=== PATIENT | female | born 1950 | race Caucasian/White ===

== ENCOUNTER 2016-07-10 07:43 | Emergency (ER) | payer MEDICARE ==
[2016-07-10] MEDS ORDERED: MORPHINE SULFATE 4 MG/ML SYRINGE IV STA (08:00)
[2016-07-10] MEDS ORDERED: ONDANSETRON 4 MG/2 ML VIAL IVP STA (08:00)
[2016-07-10] MEDS ORDERED: SODIUM CHLORIDE 0.9% 500 ML IV STA (08:00)
[2016-07-10] MEDS ORDERED: SODIUM CHLORIDE 0.9% 1,000 ML IV STA (08:00)
[2016-07-10] MEDS ORDERED: LORazepam 2 MG/ML SYRINGE IV STA (08:11)
[2016-07-10] MEDS ORDERED: LORATADINE 10 MG TAB PO STA (08:21)
--- NOTE | 2016-07-10 08:21 | ED ---
Abdominal Pain HPI - General Chief Complaint: Abdominal Pain Stated Complaint: abd pain Time Seen by Provider: 07/10/16 07:48 Source: EMS Mode of arrival: EMS Limitations: no limitations - History of Present Illness Initial Comments: Presented with the nausea and vomiting, she threw up about a half dozen times in last 24 hours and now been dry heaving there is some abdominal discomfort and I noticed that the in the ER she had some breakers or shakes she denied any fever she blamed her for the area and denies any headaches no chest pain no shortness of breath does have abdominal pain has some mild nausea and vomiting last bowel movement was yesterday and it was normal, she was recently diagnosed with the colon cancer her gave me a radiology report from him before according to that report is his CT abdomen and pelvis with contrast the findings are compatible with a known right colon cancer there are multiple mildly enlarged lymph nodes in the right abdomen mesentery lymph nodes metastatic cyst cannot be excluded nonspecific borderline size thoracic lymph nodes which can be reassessed subsequently several lines follow-up imaging and there was a pulmonary emphysema mildly enlarged main pulmonary artery which may relate to an element of pulmonary artery hypertension. Systems are reviewed - Related Data Allergies Allergy/AdvReac Type Severity Reaction Status Date / Time Penicillins Allergy Unknown Verified 07/10/16 08:10 sertraline [From Zoloft] Allergy Unknown Verified 07/10/16 08:10 Sulfa (Sulfonamide Allergy Unknown Verified 07/10/16 08:10 Antibiotics) Review of Systems ROS Statement: Those systems with pertinent positive or pertinent negative responses have been documented in the HPI. ROS Other: All systems not noted in ROS Statement are negative. Past Medical History Past Medical History: GERD/Reflux, GI Bleed, Hypertension Additional Past Medical History / Comment(s): benign tumor of the colon, sciatica, "vision problem", cataract History of Any Multi-Drug Resistant Organisms: None Reported Past Surgical History: Cholecystectomy, Orthopedic Surgery, Tonsillectomy Additional Past Surgical History / Comment(s): right wrist surgery post fracture Past Psychological History: Anxiety Smoking Status: Current some day smoker Past Alcohol Use History: Occasional Past Drug Use History: None Reported General Exam - General Exam Comments Initial Comments: General: The patient is awake and alert, in mild distress and very anxious Skin: Skin is warm and dry noticed multiple bruising on the upper extremity Eye: Pupils are equal, round and reactive to light, extra-ocular movements are intact; there is normal conjunctiva bilaterally. Ears, nose, mouth and throat: There are moist mucous membranes and no oral lesions. Neck: The neck is supple, there is no tenderness Cardiovascular: There is a regular rate and rhythm. No murmur, rub or gallop is appreciated. Respiratory: To auscultation bilateral, no wheezing no rhonchi no distress respiratory hickey noticed Gastrointestinal: Seems distended, bowel sounds are hyperactive mildly diffusely tender Back: There is no tenderness to palpation in the midline. There is no obvious deformity. Musculoskeletal: Normal ROM, no tenderness, There is no pedal edema. There is no calf tenderness or swelling. No cords were appreciated. Neurological: CN II-XII intact, Cranial nerves III through XII are intact. There are no obvious motor or sensory deficits. Coordination appears grossly intact. Speech is normal. Psychiatric: Cooperative, appropriate mood and she is anxious. Limitations: no limitations Course Vital Signs 07/10/16 08:01 Temperature 98.2 F Pulse Rate 88 Respiratory 18 Rate Blood Pressure 111/70 O2 Sat by Pulse 96 Oximetry EKG is normal sinus rhythm ventricular rate is 84 MA interval is 120 QRS duration is 78 QT/QTC 390/460 noticed some T-wave inversion in lead 1 and S2 depression in leads 3 noticed some T-wave inversion in aVL and T-wave inversion in lead V1 and V2 V3 and ST depression in lead V4 V5 and V6, we don't have an old EKG Patient's labs and imaging studies were reviewed and discussed with the family her white count is elevated is 20.2 with a left shift creatinine is 2.0 to and KUB and a psych consistent with the bowel obstruction or ileus not able to do a CAT scan of the abdomen and considering creatinine is high, had a discussion with the family and patient her they wanted to discuss with some other family members and [facility], this is where she is scheduled for surgery on now coming Medical Decision Making - Lab Data Result diagrams: 07/10/16 08:15 07/10/16 08:15 Lab Results 07/10/16 07/10/16 07/10/16 Range/Units 08:15 08:15 08:15 WBC 20.2 H (3.8-10.6) k/uL RBC 5.38 (3.80-5.40) m/uL Hgb 11.4 (11.4-16.0) gm/dL Hct 41.0 (34.0-46.0) % MCV 76.2 L (80.0-100.0) fL MCH 21.2 L (25.0-35.0) pg MCHC 27.8 L (31.0-37.0) g/dL RDW 15.8 H (11.5-15.5) % Plt Count 649 H (150-450) k/uL Neutrophils % 90 % Lymphocytes % 5 % Monocytes % 4 % Eosinophils % 0 % Basophils % 1 % Neutrophils # 18.2 H (1.3-7.7) k/uL Lymphocytes # 0.9 L (1.0-4.8) k/uL Monocytes # 0.7 (0-1.0) k/uL Eosinophils # 0.1 (0-0.7) k/uL Basophils # 0.1 (0-0.2) k/uL Hypochromasia Marked Poikilocytosis Slight Microcytosis Slight Sodium 142 (137-145) mmol/L Potassium 4.9 (3.5-5.1) mmol/L Chloride 98 (98-107) mmol/L Carbon Dioxide 19 L (22-30) mmol/L Anion Gap 25 mmol/L BUN 26 H (7-17) mg/dL Creatinine 2.03 H (0.52-1.04) mg/dL Est GFR (MDRD) Af Amer 30 (>60 ml/min/1.73 sqM) Est GFR (MDRD) Non-Af 24 (>60 ml/min/1.73 sqM) Glucose 208 H (74-99) mg/dL Calcium 10.5 H (8.4-10.2) mg/dL Total Bilirubin 0.8 (0.2-1.3) mg/dL AST 26 (14-36) U/L ALT 23 (9-52) U/L Alkaline Phosphatase 169 H (38-126) U/L Troponin I 0.023 (0.000-0.034) ng/mL Total Protein 8.5 H (6.3-8.2) g/dL Albumin 5.2 H (3.5-5.0) g/dL Amylase 108 (30-110) U/L Lipase 163 (23-300) U/L Critical Care Time Total Critical Care Time: 35 Critical Care Time: He does have a history of colon cancer and that she is scheduled to have surgery by [facility] in [place], and today R investigations included CBC, comprehensive metabolic panel and I had a plan to do the CT of abdomen which unfortunately couldn't proceed with considering her creatinine is greater than 2 today and she had a family meeting after family meeting she requested to be transfer to the [facility] alcohol in the [place] spoke with the coordination nurse and then Dr. Serena UMANZOR she is a trauma surgeon at [address] [place] [address] she accepted her care and according to her wishes she be transferred by ambulance to [facility] in [place], she had the pain management T8 she had a fluid resuscitation as well as some antibiotics considering white count was elevated she cut her Rocephin 2 g IV along with the Flagyl at this point she does not need any nasogastric tube because she has not been vomiting since he got and at this point she is stable enough to to go Disposition Clinical Impression: Bowel obstruction, History of colon cancer, Renal failure Disposition: OTHER INSTITUTION NOT DEFINED Condition: Fair Referrals: None,Stated [Primary Care Provider] - 1-2 days - Out of Hospital Transfer - Req. Specs Out of Hospital Transfer - Requested Specifics: Other Emergency Center ( Transferred to to [facility])
[2016-07-10] MEDS ORDERED: LORATADINE-PSEUDOEPH 5-120 MG 1 EACH TAB.ER.12H PO PRN (08:26)
[2016-07-10 08:40] LABS: Basophils # (A) 0.1 k/uL (0-0.2); Basophils % (A) 1 %; CH 21.9; CHCM 28.9; Eosinophils # (A) 0.1 k/uL (0-0.7); Eosinophils % (A) 0 %; HDW 3.44; HGB 11.4 gm/dL (11.4-16.0); Hypochromasia Marked; Luc # (Auto) 0.22; Luc % (Auto) 1; Lymphocytes # (A) 0.9 k/uL (1.0-4.8); Lymphocytes % (A) 5 %; MCH 21.2 pg (25.0-35.0); MCV 76.2 fL (80.0-100.0); Mean Platelet Volume 6.9; Microcytosis Slight; Monocytes # (A) 0.7 k/uL (0-1.0); Monocytes % (A) 4 %; Neutrophils # (A) 18.2 k/uL (1.3-7.7); Neutrophils % (A) 90 %; Poikilocytosis Slight; RBC 5.38 m/uL (3.80-5.40); RDW 15.8 % (11.5-15.5); WBC 20.2 k/uL (3.8-10.6); WBC (Perox) 20.84
[2016-07-10 08:44] LABS: MCHC 27.8 g/dL (31.0-37.0)
[2016-07-10] MEDS ORDERED: cefTRIAXone 2,000 MG in SODIUM CHLORIDE 0.9% 100 ML IVPB STA (08:47)
[2016-07-10] MEDS ORDERED: metroNIDAZOLE-NS PMX 500 MG in SALINE 1 100ML.BAG IVPB STA (08:48)
[2016-07-10 08:59] VITALS: RESP 18
--- NOTE | 2016-07-10 09:00 | XR ---
EXAMINATION TYPE: XR chest 1V DATE OF EXAM: 07/10/2016 8:46 AM COMPARISON: NONE HISTORY: 66-year-old female with pain and cold symptoms TECHNIQUE: Single frontal view of the chest is obtained. FINDINGS: Heart is upper limits of normal in size. Mild interstitial prominence has a chronic appearance. Some strandy atelectasis is noted in the lower lungs. No consolidation or pleural effusion. IMPRESSION: Some chronic appearing changes without acute cardiopulmonary process.
--- NOTE | 2016-07-10 09:04 | XR ---
EXAMINATION TYPE: XR KUB DATE OF EXAM: 07/10/2016 8:45 AM COMPARISON: NONE HISTORY: 66 year-old female with abdominal pain and nausea FINDINGS: Supine imaging limited for assessment of free air. Dilated small bowel loops are noted measuring up t o 3.7 cm. Minimal scattered colonic gas is present. Some nonspecific calcific densities left mid abdomen could be vascular. Cholecystectomy clips are pre sent. Vascular calcifications in the pelvis. IMPRESSION: Dilated small bowel loops measuring up to 3.7 cm. Differential considerations include generalized ile us or small bowel obstruction.
[2016-07-10 09:06] LABS: Calcium 10.5 mg/dL (8.4-10.2); Potassium 4.9 mmol/L (3.5-5.1); Total Bilirubin 0.8 mg/dL (0.2-1.3); Total Protein 8.5 g/dL (6.3-8.2)
[2016-07-10 10:31] LABS: Appearance,Urine Cloudy (Clear); Bacteria,Urine Rare /hpf; Bilirubin,Urine 1+ (Negative); Glucose,Urine (UA) Negative (Negative); Ketones,Urine Negative (Negative); Leukocyte Esterase,Urine Trace (Negative); Mucus,Urine Occasional /hpf; Nitrite,Urine Negative (Negative); Particle Count 25986; Protein,Urine 2+ (Negative); RBC,Urine 8 /hpf (0-5); Specific Gravity,Urine 1.024 (1.001-1.035); Squamous Epithelial Cell,Urine 6 /hpf (0-4); UA Billing (MACRO vs. MICRO) MICRO; WBC,Urine 10 /hpf (0-5)
[2016-07-10 11:07] VITALS: BP 112/59; PULSE 89; TEMP 98
== END 2016-07-10 11:13 | disposition short-term general hospital (02) ==
LOC: EC 07:43
DX: K56.60 Unspecified intestinal obstruction (principal); N19 Unspecified kidney failure; R94.31 Abnormal electrocardiogram [ECG] [EKG]; K21.9 Gastro-esophageal reflux disease without esophagitis; I10 Essential (primary) hypertension; F41.9 Anxiety disorder, unspecified; D12.6 Benign neoplasm of colon, unspecified; F17.200 Nicotine dependence, unspecified, uncomplicated; Z88.0 Allergy status to penicillin; Z88.8 Allergy status to other drugs, medicaments and biological substances; Z88.2 Allergy status to sulfonamides
CPT/HCPCS: 96365 ×2; 96375 ×5; 96361 ×3; 99291 ×2; 99285; 36415; 80053; 82150; 83690; 84484; 85025; 81001; 87040; 71010; 74000; J2060; J2270; J2405; J0696; 93005

== ENCOUNTER → 2016-09-11 | Outpatient (CLI) | payer MEDICARE ==
[2016-09-11 09:30] LABS: Anisocytosis Marked; Aty Lym Flag Slight; CH 24.4; CHCM 28.6; HCT 40.5 % (34.0-46.0); Hypochromasia Marked; MCH 25.1 pg (25.0-35.0); MCHC 29.7 g/dL (31.0-37.0); Macrocytosis Slight; Mean Platelet Volume 6.9; Microcytosis Moderate; RBC 4.78 m/uL (3.80-5.40); WBC 4.6 k/uL (3.8-10.6)
[2016-09-11 09:31] LABS: MCV 84.8 fL (80.0-100.0); RDW 26.8 % (11.5-15.5)
[2016-09-11 09:47] LABS: Add Differential Manual Differential
[2016-09-11 09:48] LABS: Nucleated Red Blood Cells 0 /100 WBC (0-0); Total Cells Counted 100
[2016-09-11 09:49] LABS: Polychromasia Present
== END | disposition home or self-care (01) ==
LOC: LABWHC1 08:38 → EDSTATUS 08:52
PROVIDERS: ATTEND Internal Medicine
DX: C18.9 Malignant neoplasm of colon, unspecified (principal)
CPT/HCPCS: 36415; 85025

== ENCOUNTER 2016-10-11 16:11 | Emergency (ER) | payer MEDICARE ==
[2016-10-11] MEDS ORDERED: SODIUM CHLORIDE 0.9% 1,000 ML IV ONE (16:55)
[2016-10-11] MEDS ORDERED: ONDANSETRON 4 MG/2 ML VIAL IVP STA (16:55)
[2016-10-11 17:23] LABS: Anisocytosis Marked; Basophils % (A) 1 %; CH 28.5; Eosinophils % (A) 1 %; HCT 41.9 % (34.0-46.0); HDW 3.38; HGB 13.5 gm/dL (11.4-16.0); Hypochromasia Slight; Luc % (Auto) 4; Lymphocytes % (A) 21 %; MCH 28.5 pg (25.0-35.0); MCHC 32.3 g/dL (31.0-37.0); MCV 88.3 fL (80.0-100.0); Macrocytosis Slight; Mean Platelet Volume 7.9; Microcytosis Moderate; Monocytes # (A) 0.2 k/uL (0-1.0); Monocytes % (A) 5 %; Neutrophils # (A) 3.2 k/uL (1.3-7.7); Neutrophils % (A) 68 %; RBC 4.75 m/uL (3.80-5.40); WBC 4.6 k/uL (3.8-10.6); WBC (Perox) 4.62
[2016-10-11 17:32] LABS: RDW 27.5 % (11.5-15.5)
[2016-10-11 17:35] LABS: Anion Gap 14 mmol/L; Blood Urea Nitrogen 24 mg/dL (7-17); Calcium 10.9 mg/dL (8.4-10.2); Carbon Dioxide 30 mmol/L (22-30); Chloride 94 mmol/L (98-107); Glucose 163 mg/dL (74-99); Non-African American GFR(MDRD) 53 (>60 ml/min/1.73 sqM); Potassium 3.7 mmol/L (3.5-5.1); Sodium 138 mmol/L (137-145)
[2016-10-11 17:43] LABS: Manual Review Performed
--- NOTE | 2016-10-11 19:10 | ED ---
General Adult HPI - General Chief complaint: Nausea/Vomiting/Diarrhea Stated complaint: Dehydration Time Seen by Provider: 10/11/16 16:43 Source: patient, family, RN notes reviewed, old records reviewed Mode of arrival: ambulatory Limitations: no limitations - History of Present Illness Initial comments: 66-year-old female with history of colon cancer presenting for diarrhea. Patient states that she had partial colectomy at [facility] done in June. She states she was told she was cured of her cancer after that, however she is doing neoadjuvant chemotherapy as well. She's had 4 treatments so far in a six- month treatment regimen. She is doing this through the [facility]. She states that she began developing diarrhea about 5 days ago. Has been persistent since then. She is having 4-8 watery diarrhea episodes per day. She is concerned she could be dehydrated. She did call her nursing home manager through the cancer [facility] who recommended she come to the ER for evaluation. She denies any nausea or vomiting associated. She denies any abdominal pain associated. She does have an antidiarrheal medication but was uncertain if she could take this medication. She has not tried any other medications at this point. - Related Data Home Medications Medication Instructions Recorded Confirmed ALPRAZolam [Xanax] 0.5 mg PO DAILY PRN 10/11/16 10/11/16 Acetaminophen [Tylenol] 500 mg PO Q6H PRN 10/11/16 10/11/16 Felodipine [Felodipine ER] 10 mg PO DAILY 10/11/16 10/11/16 Hydrochlorothiazide [Hydrodiuril] 25 mg PO DAILY 10/11/16 10/11/16 Ondansetron [Zofran ODT] 8 mg PO Q8HR PRN 10/11/16 10/11/16 PARoxetine HCL [Paxil] 40 mg PO DAILY 10/11/16 10/11/16 Prochlorperazine [Compazine] 10 mg PO Q6H PRN 10/11/16 10/11/16 Pyridoxine [Vitamin B-6] 200 mg PO Q48H 10/11/16 10/11/16 Pyridoxine [Vitamin B-6] 300 mg PO Q48H 10/11/16 10/11/16 Varenicline [Chantix] 0.5 mg PO BID 10/11/16 10/11/16 diphenhydrAMINE HCL [Benadryl] 25 mg PO HS PRN 10/11/16 10/11/16 Allergies Allergy/AdvReac Type Severity Reaction Status Date / Time benazepril Allergy Swelling Verified 10/11/16 17:31 Penicillins Allergy Swelling Verified 10/11/16 17:31 sertraline [From Zoloft] Allergy Swelling Verified 10/11/16 17:31 Sulfa (Sulfonamide Allergy Swelling Verified 10/11/16 17:31 Antibiotics) Review of Systems ROS Statement: Those systems with pertinent positive or pertinent negative responses have been documented in the HPI. ROS Other: All systems not noted in ROS Statement are negative. Past Medical History Past Medical History: GERD/Reflux, GI Bleed, Hypertension Additional Past Medical History / Comment(s): colon cancer. sciatica, "vision problem", cataract History of Any Multi-Drug Resistant Organisms: None Reported Past Surgical History: Cholecystectomy, Orthopedic Surgery, Tonsillectomy Additional Past Surgical History / Comment(s): right wrist surgery post fracture Past Psychological History: Anxiety Smoking Status: Current some day smoker Past Alcohol Use History: Occasional Past Drug Use History: None Reported General Exam - General Exam Comments Initial Comments: General: Awake and Alert. No acute distress. Does not appear acutely ill. Eyes: RAJ, EOM intact. No nystagmus. No scleral icterus. HENT: Atraumatic, normocephalic. Mucous membranes moist. Trachea midline. Neck: The neck is supple, there is no tenderness or JVD. Cardiovascular: Regular rate and rhythm. No murmur, rub, or gallop is appreciated. Distal pulses intact. Respiratory: Lungs are clear to auscultation bilaterally. No wheezes, rales, rhonchi. No respiratory distress. Gastrointestinal: Soft, Nontender. No rebound or guarding. Non-distended. No masses or organomegaly noted. No CVA tenderness. Musculoskeletal: No tenderness. Normal ROM. No gross deformity. No strength deficits. Neurological: A&Ox3. CN II-XII grossly intact, There are no obvious motor or sensory deficits. Coordination appears grossly intact. Speech is normal. Skin: Skin is warm and dry and no rashes or lesions are noted. Psychiatric: Cooperative, appropriate mood & affect, normal judgment. Limitations: no limitations Course Vital Signs 10/11/16 10/11/16 16:34 19:19 Temperature 99.1 F 98.8 F Pulse Rate 81 77 Respiratory 18 16 Rate Blood Pressure 101/58 98/64 O2 Sat by Pulse 97 98 Oximetry Medical Decision Making - Medical Decision Making 66-year-old female with history of colon cancer presenting for diarrhea. Abdomen is soft and nontender on examination, no evidence of acute peritonitis. Lab work was performed which is grossly stable. She does not appear significantly hypovolemic on exam. She was given IV fluids during course in ED. Discussed use of her antidiarrheal agent as well as Zofran for symptomatic management. Discussed she is safe to use these medications as there is low suspicion for bowel obstruction or infectious etiology of her diarrhea at this time. This is likely secondary to her chemotherapy, last treatment which was about 2 weeks ago. Patient states she plans to call her nursing home manager for further discussion and management tomorrow. Discussed concerning signs symptoms for immediate return to the ED. Discussed close follow-up with PCP and cancer Center. Patient and are agreeable with plan and discharge home. - Lab Data Result diagrams: 10/11/16 16:02 10/11/16 16:02 Lab Results 10/11/16 10/11/16 Range/Units 16:02 16:02 WBC 4.6 (3.8-10.6) k/uL RBC 4.75 (3.80-5.40) m/uL Hgb 13.5 (11.4-16.0) gm/dL Hct 41.9 (34.0-46.0) % MCV 88.3 (80.0-100.0) fL MCH 28.5 (25.0-35.0) pg MCHC 32.3 (31.0-37.0) g/dL RDW 27.5 H (11.5-15.5) % Plt Count 91 L (150-450) k/uL Neutrophils % 68 % Lymphocytes % 21 % Monocytes % 5 % Eosinophils % 1 % Basophils % 1 % Neutrophils # 3.2 (1.3-7.7) k/uL Lymphocytes # 1.0 (1.0-4.8) k/uL Monocytes # 0.2 (0-1.0) k/uL Eosinophils # 0.0 (0-0.7) k/uL Basophils # 0.0 (0-0.2) k/uL Manual Slide Review Performed Hypochromasia Slight Anisocytosis Marked Microcytosis Moderate Macrocytosis Slight Sodium 138 (137-145) mmol/L Potassium 3.7 (3.5-5.1) mmol/L Chloride 94 L (98-107) mmol/L Carbon Dioxide 30 (22-30) mmol/L Anion Gap 14 mmol/L BUN 24 H (7-17) mg/dL Creatinine 1.03 (0.52-1.04) mg/dL Est GFR (MDRD) Af Amer >60 (>60 ml/min/1.73 sqM) Est GFR (MDRD) Non-Af 53 (>60 ml/min/1.73 sqM) Glucose 163 H (74-99) mg/dL Calcium 10.9 H (8.4-10.2) mg/dL Disposition Clinical Impression: S/P chemotherapy, time since less than 4 weeks, Diarrhea Disposition: HOME SELF-CARE Condition: Stable Instructions: Acute Diarrhea (ED) Additional Instructions: Please take your anti-diarrheal medication and Zofran as discussed. Please call your nursing home manager tomorrow for further discussion on symptomatic management. Referrals: None,Stated [Primary Care Provider] - 1-2 days Time of Disposition: 19:10
[2016-10-11 19:22] VITALS: BP 98/64; PULSE 77; RESP 16; TEMP 98.8
== END 2016-10-11 19:37 | disposition home or self-care (01) ==
LOC: EC 16:11
DX: R19.7 Diarrhea, unspecified (principal); I10 Essential (primary) hypertension; F17.200 Nicotine dependence, unspecified, uncomplicated; Z85.038 Personal history of other malignant neoplasm of large intestine; Z92.21 Personal history of antineoplastic chemotherapy; Z88.0 Allergy status to penicillin; Z88.2 Allergy status to sulfonamides; Z88.8 Allergy status to other drugs, medicaments and biological substances; Z79.899 Other long term (current) drug therapy
CPT/HCPCS: 99284 ×2; 96374 ×2; 96361 ×2; 36415; 80048; 85025; J2405

== ENCOUNTER → 2016-12-10 | Outpatient (CLI) | payer MEDICARE ==
[2016-12-10 13:22] LABS: Anisocytosis Slight; Aty Lym Flag Slight; Basophils % (A) 1 %; CH 33.1; CHCM 31.3; Eosinophils # (A) 0.1 k/uL (0-0.7); Eosinophils % (A) 2 %; HCT 36.9 % (34.0-46.0); HDW 2.73; HGB 11.6 gm/dL (11.4-16.0); Hypochromasia Slight; Luc % (Auto) 6; Lymphocytes # (A) 1.4 k/uL (1.0-4.8); Lymphocytes % (A) 43 %; MCH 33.5 pg (25.0-35.0); MCHC 31.5 g/dL (31.0-37.0); Macrocytosis Marked; Monocytes # (A) 0.3 k/uL (0-1.0); Monocytes % (A) 9 %; Neutrophils # (A) 1.2 k/uL (1.3-7.7); Neutrophils % (A) 39 %; RBC 3.47 m/uL (3.80-5.40); WBC 3.2 k/uL (3.8-10.6); WBC (Perox) 3.31
[2016-12-10 13:28] LABS: MCV 106.2 fL (80.0-100.0)
[2016-12-10 13:42] LABS: ALT 37 U/L (9-52); AST 49 U/L (14-36); Alkaline Phosphatase 128 U/L (38-126); Anion Gap 12 mmol/L; Blood Urea Nitrogen 11 mg/dL (7-17); Calcium 9.6 mg/dL (8.4-10.2); Carbon Dioxide 22 mmol/L (22-30); Chloride 109 mmol/L (98-107); Glucose 98 mg/dL (74-99); Non-African American GFR(MDRD) >60 (>60 ml/min/1.73 sqM); Potassium 4.3 mmol/L (3.5-5.1); Sodium 143 mmol/L (137-145); Total Bilirubin 0.7 mg/dL (0.2-1.3); Total Protein 7.2 g/dL (6.3-8.2)
[2016-12-10 13:55] LABS: Manual Review Performed
== END | disposition home or self-care (01) ==
LOC: LABWHC1 13:07
PROVIDERS: ATTEND Internal Medicine
DX: C18.9 Malignant neoplasm of colon, unspecified (principal)
CPT/HCPCS: 36415; 80053; 85025

== ENCOUNTER → 2017-02-04 | Outpatient (CLI) | payer MEDICARE ==
[2017-02-04 14:24] LABS: ALT 42 U/L (9-52); AST 64 U/L (14-36); Alkaline Phosphatase 204 U/L (38-126); Anion Gap 11 mmol/L; Blood Urea Nitrogen 10 mg/dL (7-17); Calcium 9.4 mg/dL (8.4-10.2); Carbon Dioxide 24 mmol/L (22-30); Chloride 107 mmol/L (98-107); Glucose 91 mg/dL (74-99); Non-African American GFR(MDRD) >60 (>60 ml/min/1.73 sqM); Sodium 142 mmol/L (137-145); Total Bilirubin 0.6 mg/dL (0.2-1.3)
[2017-02-04 14:27] LABS: Anisocytosis Slight; Aty Lym Flag Marked; CH 32.9; CHCM 31.6; HCT 33.4 % (34.0-46.0); HDW 2.75; HGB 10.9 gm/dL (11.4-16.0); Hypochromasia Slight; Large Platelets Flag Moderate; MCH 34.1 pg (25.0-35.0); MCHC 32.6 g/dL (31.0-37.0); MCV 104.6 fL (80.0-100.0); Macrocytosis Moderate; RBC 3.19 m/uL (3.80-5.40); RDW 18.8 % (11.5-15.5); WBC 4.4 k/uL (3.8-10.6); WBC (Perox) 4.52
[2017-02-04 14:37] LABS: Add Differential Manual Differential
[2017-02-04 14:40] LABS: Manual Review Performed; Nucleated Red Blood Cells 0 /100 WBC (0-0); Polychromasia Present; Total Cells Counted 100
[2017-02-04 14:41] LABS: Large Platelets Present
== END | disposition home or self-care (01) ==
LOC: LABWHC1 13:55
PROVIDERS: ATTEND Internal Medicine
DX: C18.9 Malignant neoplasm of colon, unspecified (principal)
CPT/HCPCS: 36415; 80053; 85025

== ENCOUNTER → 2017-02-07 | Outpatient (CLI) | payer MEDICARE ==
--- NOTE | 2017-02-08 08:58 | CT ---
EXAMINATION TYPE: CT wrist RT wo con DATE OF EXAM: 02/07/2017 COMPARISON: Outside radiographs 01/31/2017 HISTORY: 66-year-old female other extra articular fracture of wrist TECHNIQUE: Contiguous axial scanning of the right wrist without IV contrast. Coronal and sagittal rec onstructions performed. 3-D reconstructions generated on a dedicated independent workstation. CT DLP: 104.2 mGycm Automated exposure control for dose reduction was used. FINDINGS: There is comminuted fracture of the distal radial metaphysis and epiphysis with dorsal angulation and impaction. Fracture is intra-articular into the radiocarpal joint and there is disruption of the art icular surface running from the radial volar aspect to the ulnar dorsal aspect with a bony gap of 4 m m that runs this width and metaphyseal bone protruding slightly into the joint space, refer to porteritt al image 16. Comminuted fracture fragments involve the radial styloid process which measures 1.8 cm, the ulnar vol ar aspect of the distal radial epiphysis which measures 2.0 cm wide by 1.5 cm AP and encompasses most of the radiolunate articular surface, a 1.0 cm fragment along the dorsal ulnar aspect of the distal radial that has intra-articular extension into the distal radioulnar joint, and smaller fragments in the region of Quoc tubercle. There is a nondisplaced fracture through the base of the ulnar styloid process. Osteoarthritic changes at the base of the thumb. Some associated soft tissue swelling. IMPRESSION: 1. COMMINUTED, IMPACTED, AND DORSALLY ANGULATED FRACTURE OF THE DISTAL RADIAL EPIPHYSIS AND METAPHYSI S THAT SHOWS INTRA-ARTICULAR EXTENSION INTO BOTH THE RADIOCARPAL AND DISTAL RADIOULNAR JOINTS. 2. THE IMPACTION FORCES A 4 MM GAP THAT RUNS THE WIDTH OF THE RADIAL ARTICULAR SURFACE AND ALLOWS MET APHYSEAL BONE TO PROTRUDE SLIGHTLY INTO THE JOINT SPACE. 3. NONDISPLACED FRACTURE THROUGH THE BASE OF THE ULNAR STYLOID PROCESS.
== END | disposition home or self-care (01) ==
LOC: RADCTMAIN 18:15
PROVIDERS: ATTEND Orthopaedic Surgery
DX: S52.572A Other intraarticular fracture of lower end of left radius, initial encounter for closed fracture (principal); S52.615A Nondisplaced fracture of left ulna styloid process, initial encounter for closed fracture

== ENCOUNTER → 2017-07-26 | Outpatient (CLI) | payer MEDICARE ==
[~2017-07-26] MED LIST: SODIUM CHLORIDE 0.9% 500 ML in EMPTY BAG 1 BAG IV PRN
[2017-07-26 15:03] VITALS: BP 168/70; PULSE 66; RESP 20; TEMP 97.4
== END | disposition home or self-care (01) ==
LOC: PROCWHC3 14:54
PROVIDERS: ATTEND Internal Medicine
DX: C18.9 Malignant neoplasm of colon, unspecified (principal)
CPT/HCPCS: 96523; J1642

== ENCOUNTER → 2017-09-15 | Outpatient (CLI) | payer MEDICARE ==
--- NOTE | 2017-09-23 11:39 | MM ---
Reason for exam: screening (asymptomatic). Last mammogram was performed 1 year ago. History: Patient is postmenopausal and history of other cancer. Family history of breast cancer in grandmother. Physical Findings: A clinical breast exam by your physician is recommended on an annual basis and results should be correlated with mammographic findings. MG 3D Screening Mammo W/Cad Bilateral CC and MLO view(s) were taken. Prior study comparison: September 03, 2016, mammogram, performed at [facility]. August 06, 2015, mammogram, performed at [facility]. The breast tissue is heterogeneously dense. This may lower the sensitivity of mammography. Finding: There are typically benign round calcifications in both breasts. There is a chronic nodularity in the right breast. There is no discrete abnormality. Right mediport axilla. ASSESSMENT: Benign, BI-RAD 2 RECOMMENDATION: Routine screening mammogram of both breasts in 1 year.
== END | disposition home or self-care (01) ==
LOC: RADMAMWWP 13:16
PROVIDERS: ATTEND Family Medicine
DX: Z12.31 Encounter for screening mammogram for malignant neoplasm of breast (principal)
CPT/HCPCS: 77063; 77067

== ENCOUNTER 2017-11-16 17:19 | Emergency (ER) | payer MEDICARE ==
[2017-11-16] MEDS ORDERED: SODIUM CHLORIDE 0.9% 1,000 ML IV ONE (17:52)
[2017-11-16] MEDS ORDERED: DIPH,PERTUS(ACELL)TETVAC-LF 0.5 ML VIAL IM ONE (17:54)
[2017-11-16 18:23] LABS: Prothrombin Time 10.2 sec (9.0-12.0)
[2017-11-16 18:25] LABS: Albumin 4.8 g/dL (3.5-5.0); Calcium 9.6 mg/dL (8.4-10.2); Potassium 4.2 mmol/L (3.5-5.1); Total Bilirubin 0.5 mg/dL (0.2-1.3); Total Protein 7.6 g/dL (6.3-8.2)
--- NOTE | 2017-11-16 18:44 | CT ---
EXAMINATION TYPE: CT brain daxa eblla DATE OF EXAM: 11/16/2017 COMPARISON: NONE HISTORY: Laceration to posterior head after fall injury CT DLP: 1771 mGycm Automated exposure control for dose reduction was used. TECHNIQUE: CT scan of the head and cervical spine are performed without contrast. FINDINGS: There is mild cerebral cortical atrophy. There is no mass effect nor midline shift. There is no sign of intracranial hemorrhage. The calvarium is intact. The cervical vertebra have normal alignment. There is narrowing of the disc spaces at C5-6 C6-7. Face t joints are intact. There is spurring of the endplates. Skull base appears intact. IMPRESSION: Mild atrophy. No acute intracranial abnormality. Spondylotic changes in the cervical spine. No fracture seen.
[2017-11-16 19:48] VITALS: TEMP 98
--- NOTE | 2017-11-16 20:08 | XR ---
EXAMINATION TYPE: XR chest 2V DATE OF EXAM: 11/16/2017 COMPARISON: 07/10/2016 HISTORY: Syncope TECHNIQUE: Frontal and lateral views of the chest are obtained. FINDINGS: There is no heart failure nor confluent pneumonic infiltrate. Costophrenic angles are cira r. There is some linear density at the right lung base. There is right central venous catheter with t ip in the superior vena cava. There are chest leads. Bony thorax is intact. IMPRESSION: Scarring or subsegmental atelectasis at the right lung base. No significant change sarah red to old exam. No heart failure.
--- NOTE | 2017-11-16 21:07 | ED ---
Fall HPI - General Chief Complaint: Fall Stated Complaint: Fall/ Syncope Time Seen by Provider: 11/16/17 17:25 Source: patient Mode of arrival: EMS - History of Present Illness Initial Comments: 67 years old female had a couple glasses of wine today she fell down she hit her head against a hard surface embolus was called in her family wanted her to be evaluated at the ER, she didn't want come to the ER. Denies any headache no neck stiffness or neck pain, no chest pain or shortness of breath she is complaining about some swelling over the bridge of the nose no other complaints - Related Data Home Medications Medication Instructions Recorded Confirmed Felodipine [Felodipine ER] 5 mg PO DAILY 10/11/16 11/16/17 PARoxetine HCL [Paxil] 40 mg PO DAILY 10/11/16 11/16/17 Allergies Allergy/AdvReac Type Severity Reaction Status Date / Time benazepril Allergy Swelling Verified 11/16/17 17:48 Penicillins Allergy Swelling Verified 11/16/17 17:48 sertraline [From Zoloft] Allergy Swelling Verified 11/16/17 17:48 Sulfa (Sulfonamide Allergy Swelling Verified 11/16/17 17:48 Antibiotics) Review of Systems ROS Statement: Those systems with pertinent positive or pertinent negative responses have been documented in the HPI. ROS Other: All systems not noted in ROS Statement are negative. Past Medical History Past Medical History: Cancer, GERD/Reflux, GI Bleed, Hypertension Additional Past Medical History / Comment(s): colon cancer. sciatica, "vision problem", cataract History of Any Multi-Drug Resistant Organisms: None Reported Past Surgical History: Cholecystectomy, Orthopedic Surgery, Tonsillectomy Additional Past Surgical History / Comment(s): right wrist surgery post fracture Past Psychological History: Anxiety, Depression Smoking Status: Former smoker Past Alcohol Use History: Rare Past Drug Use History: None Reported General Exam - General Exam Comments Initial Comments: General: The patient is awake and alert, in no distress, and does not appear acutely ill. Skin: Skin is warm and dry and no rashes or lesions are noted. Eye: Pupils are equal, round and reactive to light, extra-ocular movements are intact; there is normal conjunctiva bilaterally. Ears, nose, mouth and throat: No septal hematoma noticed noticed some swelling generalized swelling of the nasal bridge. Neck: The neck is supple, there is no tenderness or JVD. Cardiovascular: There is a regular rate and rhythm. No murmur, rub or gallop is appreciated. Respiratory: To auscultation bilateral, no wheezing no rhonchi no distress respiratory hickey noticed Gastrointestinal: Soft, non-distended, non-tender abdomen without masses or organomegaly noted. There is no rebound or guarding present. Bowel sounds are unremarkable. Back: There is no tenderness to palpation in the midline. There is no obvious deformity. Musculoskeletal: Normal ROM, no tenderness, There is no pedal edema. There is no calf tenderness or swelling. No cords were appreciated. Neurological: CN II-XII intact, Cranial nerves III through XII are intact. There are no obvious motor or sensory deficits. Coordination appears grossly intact. Speech is normal. Psychiatric: Cooperative, appropriate mood & affect, normal judgment. Limitations: no limitations Course Vital Signs 11/16/17 11/16/17 11/16/17 17:32 19:47 21:10 Temperature 97.8 F 98.0 F Pulse Rate 98 66 67 Respiratory 18 18 16 Rate Blood Pressure 142/76 123/59 115/70 O2 Sat by Pulse 99 95 96 Oximetry EKG is normal sinus rhythm ventricular rate is 70 SC interval is 122 QRS duration is 90 QT/QTc is 462/498 and some artifacts there also noticed some T- wave inversion in lead V4 V5 and V6 head CT, negative, Nasal X-ray are negative, cervical spine CT are unremarkable Medical Decision Making - Lab Data Result diagrams: 11/16/17 18:05 Lab Results 11/16/17 11/16/17 Range/Units 18:05 18:05 PT 10.2 (9.0-12.0) sec INR 1.0 (<1.2) Sodium 143 (137-145) mmol/L Potassium 4.2 (3.5-5.1) mmol/L Chloride 106 (98-107) mmol/L Carbon Dioxide 21 L (22-30) mmol/L Anion Gap 16 mmol/L BUN 15 (7-17) mg/dL Creatinine 0.99 (0.52-1.04) mg/dL Est GFR (CKD-EPI)AfAm 67 (>60 ml/min/1.73 sqM) Est GFR (CKD-EPI)NonAf 59 (>60 ml/min/1.73 sqM) Glucose 89 (74-99) mg/dL Calcium 9.6 (8.4-10.2) mg/dL Total Bilirubin 0.5 (0.2-1.3) mg/dL AST 37 H (14-36) U/L ALT 33 (9-52) U/L Alkaline Phosphatase 137 H (38-126) U/L Total Protein 7.6 (6.3-8.2) g/dL Albumin 4.8 (3.5-5.0) g/dL Serum Alcohol 116 mg/dL Disposition Clinical Impression: Acute alcohol intoxication, Fall, Head injury Disposition: HOME SELF-CARE Condition: Good Instructions: Fall Prevention for Older Adults (ED) Is patient prescribed a controlled substance at d/c from ED?: No When asked, does pt state using other controlled substances?: No If prescribed controlled substance>3 days was MAPS reviewed?: No If opioid is for acute pain is fill amount 7 days or less?: No If Rx opioid, was Start Talking consent form obtained?: No Referrals: Davis Ty DO [Primary Care Provider] - 1-2 days
[2017-11-16 21:10] VITALS: PULSE 67
--- NOTE | 2017-11-16 21:43 | XR ---
History fall. Comparison none. Technique 3 views of the nasal bones. FINDINGS: I see no fracture nor dislocation. Maxillary spine is intact. There is normal aeration of the visuali zed paranasal sinuses. IMPRESSION: Negative nasal bone exam.
[2017-11-16 21:57] VITALS: BP 127/68; RESP 18
== END 2017-11-16 21:57 | disposition home or self-care (01) ==
LOC: EC 17:19
DX: S09.90XA Unspecified injury of head, initial encounter (principal); F10.129 Alcohol abuse with intoxication, unspecified; J34.89 Other specified disorders of nose and nasal sinuses; I10 Essential (primary) hypertension; F32.9 Major depressive disorder, single episode, unspecified; F41.9 Anxiety disorder, unspecified; Z87.891 Personal history of nicotine dependence; Z79.899 Other long term (current) drug therapy; Z88.0 Allergy status to penicillin; Z88.2 Allergy status to sulfonamides; Z88.8 Allergy status to other drugs, medicaments and biological substances; Z23 Encounter for immunization; W19.XXXA Unspecified fall, initial encounter; Y92.009 Unspecified place in unspecified non-institutional (private) residence as the place of occurrence of the external cause
CPT/HCPCS: 36415; 70160; 70450; 71046; 72125; 80053; 80320; 85610; 90471; 90715; 93005; 96360; 96361; 99285

== ENCOUNTER → 2018-02-02 | Outpatient (CLI) | payer MEDICARE ==
--- NOTE | 2018-02-03 10:26 | ECHOF ---
Referral Reason:Heart Murmur R01.1 MEASUREMENTS -------- HEIGHT: 162.6 cm WEIGHT: 74.8 kg BP: IVSd: 1.7 cm (0.6 - 1.1) LVIDd: 3.3 cm (3.9 - 5.3) LVPWd: 1.6 cm (0.6 - 1.1) IVSs: 1.7 cm LVIDs: 2.8 cm LVPWs: 1.6 cm LA Diam: 4.1 cm (2.7 - 3.8) LAESV Index (A-L): 27.07 ml/m Ao Diam: 2.9 cm (2.0 - 3.7) AV Cusp: 1.8 cm (1.5 - 2.6) LA Diam: 3.3 cm (2.7 - 3.8) MV EXCURSION: 22.907 mm (> 18.000) MV EF SLOPE: 88 mm/s (70 - 150) EPSS: 0.3 cm MV E Abhay: 0.51 m/s MV DecT: 251 ms MV A Abhay: 0.94 m/s MV E/A Ratio: 0.54 AV maxP.61 mmHg AV meanP.63 mmHg RAP: 5.00 mmHg RVSP: 37.13 mmHg FINDINGS -------- Sinus rhythm. This was a technically good study. The left ventricular size is normal. There is severe concentric left ventricular hypertrophy. Ove rall left ventricular systolic function is normal with, an EF between 60 - 65 %. Mild Khurram with Lvot Obstruction with max gradient of 22.49mmHg and mean gradient of 11.36mmHG The right ventricle is normal in size. The left atrium is mildly dilated. Normal LA size by volume 22+/-6 ml/m2. The right atrial size is normal. There is mild aortic valve sclerosis. There is no evidence of aortic regurgitation. Peak/mean gra dient across the Aortic Valve is 19.61mmHg / 10.63mmHg. Mild mitral annular calcification present. Mild mitral regurgitation is present. Mild tricuspid regurgitation present. There is mild pulmonary hypertension. The right ventricular systolic pressure, as measured by Doppler, is 37.13mmHg. There is no pulmonic regurgitation present. The aortic root size is normal. There is no pericardial effusion. CONCLUSIONS -------- 1. The left ventricular size is normal. 2. There is severe concentric left ventricular hypertrophy. 3. Overall left ventricular systolic function is normal with, an EF between 60 - 65 %. 4. Mild Khurram with Lvot Obstruction with max gradient of 22.49mmHg and mean gradient of 11.36mmHG 5. The right ventricle is normal in size. 6. The left atrium is mildly dilated. 7. The right atrial size is normal. 8. There is mild aortic valve sclerosis. 9. Peak/mean gradient across the Aortic Valve is 19.61mmHg / 10.63mmHg. 10. Mild mitral annular calcification present. 11. Mild mitral regurgitation is present. 12. Mild tricuspid regurgitation present. 13. There is mild pulmonary hypertension. 14. The right ventricular systolic pressure, as measured by Doppler, is 37.13mmHg. 15. There is no pulmonic regurgitation present. 16. The aortic root size is normal. 17. There is no pericardial effusion. PEDIATRIC CLINICAL DIETICIAN: Jayna Villegas RDCS
== END | disposition home or self-care (01) ==
LOC: RADECHMAIN 14:56
PROVIDERS: ATTEND Family Medicine
DX: I27.20 Pulmonary hypertension, unspecified (principal); I08.3 Combined rheumatic disorders of mitral, aortic and tricuspid valves
CPT/HCPCS: 93306

== ENCOUNTER → 2018-04-20 | Outpatient (CLI) | payer MEDICARE ==
[~2018-04-20] MED LIST changes: +SODIUM CHLORIDE 0.9% 500 ML 500 ML in EMPTY BAG 1 BAG IV PRN; -SODIUM CHLORIDE 0.9% 500 ML in EMPTY BAG 1 BAG IV PRN
[2018-04-20 13:29] VITALS: BP 150/74; PULSE 85; RESP 18; TEMP 98.2
== END | disposition home or self-care (01) ==
LOC: PROCWHC3 13:22
PROVIDERS: ATTEND Internal Medicine Hematology & Oncology
DX: Z45.2 Encounter for adjustment and management of vascular access device (principal); C18.2 Malignant neoplasm of ascending colon
CPT/HCPCS: 96523; J1642

== ENCOUNTER → 2018-06-02 | Outpatient (CLI) | payer MEDICARE ==
--- NOTE | 2018-06-02 18:08 | CT ---
EXAMINATION TYPE: CT ChestAbdPelvis w con DATE OF EXAM: 06/02/2018 INDICATION: Colon cancer. COMPARISON: None CT DLP: 1651 mGycm CONTRAST: Performed with Oral Contrast and with IV Contrast, patient injected with 80ml mL of Isovue M300. IV c ontrast was approved by Dr. Waldrop. TECHNIQUE: Axial images at 5 mm thick sections. Reconstructed images in the coronal plane. Delayed images through the kidneys. FINDINGS: CT CHEST: Emphysematous changes are present. Portion of the thyroid visualized is normal. No suspicious lung nodules or focal infiltrates are present. No enlarged mediastinal or hilar adenopathy is evident. The ascending aorta diameter at the level of the main pulmonary artery is 3.5 cm. The main pulmonary artery diameter at the bifurcation is 3.[address] ABDOMEN: Liver: Normal Spleen: Normal Pancreas: Normal Adrenal glands: The adrenal glands are normal. Gallbladder: Surgically absent Kidneys: No masses are evident. No hydronephrosis is present. No cysts are present. Delayed images were obtained through the kidneys, which remain unremarkable. Aorta: Vascular calcification is within the aorta. Inferior vena cava: Normal. CT PELVIS: There is an anterior abdominal wall hernia within the upper pelvis with an opening of 5.4 cm. This contains nondilated loops of bowel containing contrast. No obstruction is evident. Loops of bowel within the abdomen and pelvis are normal. There are loops of bowel which are incom pletely distended or lack oral contrast limiting their evaluation. Multiple diverticuli are within th e sigmoid colon. No acute diverticulitis is evident. There appears be a prior right hemicolectomy. Co rrelate with the surgical history. Appendix: Not identified. Urinary bladder: Normal. Genitourinary structures: Calcifications likely within the uterus from calcified fibroids. Adnexal re gions are clear. Osseous structures: No suspicious lytic or sclerotic lesions. Degenerative disc changes and facet maryuri nges are present. IMPRESSIONS: 1. Diverticulosis without acute diverticulitis. 2. Anterior abdominal wall hernia containing none obstructed bowel loops. 3. Emphysematous changes.
== END | disposition home or self-care (01) ==
LOC: RADCTMAIN 10:23
PROVIDERS: ATTEND Internal Medicine Hematology & Oncology
DX: Z03.89 Encounter for observation for other suspected diseases and conditions ruled out (principal); K57.30 Diverticulosis of large intestine without perforation or abscess without bleeding; K43.9 Ventral hernia without obstruction or gangrene; J43.9 Emphysema, unspecified; C18.2 Malignant neoplasm of ascending colon; Z88.0 Allergy status to penicillin; Z88.2 Allergy status to sulfonamides; Z88.8 Allergy status to other drugs, medicaments and biological substances
CPT/HCPCS: 82565; 84520; 71260; 74177; 36415; Q9967

== ENCOUNTER → 2018-08-15 | Outpatient (CLI) | payer MEDICARE | END | disposition home or self-care (01) | LOC: LABPAT 12:08 | PROVIDERS: ATTEND Surgery | DX: Z01.812 Encounter for preprocedural laboratory examination (principal); K43.2 Incisional hernia without obstruction or gangrene; K43.9 Ventral hernia without obstruction or gangrene | CPT/HCPCS: 36415; 86850; 86900; 86901 ==

== ENCOUNTER → 2018-08-19 | Outpatient (CLI) | payer MEDICARE ==
[2018-08-19 10:14] LABS: HCT 42.9 % (34.0-46.0); HGB 13.5 gm/dL (11.4-16.0); MCH 30.2 pg (25.0-35.0); MCHC 31.5 g/dL (31.0-37.0); MCV 95.8 fL (80.0-100.0); Mean Platelet Volume 6.6; Platelet Count 237 k/uL (150-450); RBC 4.48 m/uL (3.80-5.40); RDW 14.3 % (11.5-15.5)
== END | disposition home or self-care (01) ==
LOC: LABPAT 09:40
PROVIDERS: ATTEND Anesthesiology
DX: Z01.812 Encounter for preprocedural laboratory examination (principal)
CPT/HCPCS: 85027

== ENCOUNTER 2018-08-23 05:47 | Inpatient (IN) | payer MEDICARE ==
[~2018-08-23 05:47] MED LIST changes: +HEPARIN SODIUM,PORCINE 5,000 UNIT/ML 1 ML VIAL SQ ONE; -SODIUM CHLORIDE 0.9% 500 ML 500 ML in EMPTY BAG 1 BAG IV PRN; +ceFAZolin IN SWFI 2 GM/20 ML SYRINGE IVP ONE
[2018-08-23] MEDS ORDERED: DEXAMETHASONE SOD PHOSPHATE 10 MG/ML 1 ML VIAL IV ONE (05:55)
[2018-08-23] MEDS ORDERED: SCOPOLAMINE 1.5MG/72HR PATCH TRANSDERM ONE (05:55)
[2018-08-23] MEDS ORDERED: ONDANSETRON 4 MG/2 ML VIAL IVP ONE (05:55)
[2018-08-23] MEDS ORDERED: MIDAZOLAM (PF) 2 MG/2 ML VIAL IV PRN (05:55)
[2018-08-23] MEDS ORDERED: LIDOCAINE 1% 20 ML VIAL (10MG/ML) FOR IV START INTRADERMA PRN (05:55)
[2018-08-23] MEDS: LACTATED RINGERS 1,000 ML IV SCH ×2 (06:25→06:31)
[2018-08-23] MEDS ORDERED: ACETAMINOPHEN IV (For NPO) 1,000 MG/100 ML VIAL ONE (06:55)
[2018-08-23] MEDS ORDERED: PHENYLEPHRINE-0.9% NACL SYG 1 MG/10 ML SYRINGE ONE (06:55)
[2018-08-23] MEDS ORDERED: ROCURONIUM BROMIDE 10 MG/ML 10 ML VIAL IV ONE (06:55)
[2018-08-23] MEDS ORDERED: NEOSTIGMINE 1 MG/ML 10 ML VIAL ONE (06:55)
[2018-08-23] MEDS ORDERED: MIDAZOLAM 2 MG/2 ML VIAL ONE (06:55)
[2018-08-23] MEDS ORDERED: SUCCINYLCHOLINE CHLORIDE 100 MG/5 ML SYR IV ONE (06:55)
[2018-08-23] MEDS ORDERED: CLINDAMYCIN 150 MG/ML 4 ML VIAL ONE (06:55)
[2018-08-23] MEDS ORDERED: ATROPINE SULFATE 0.4 MG/ML 1 ML VIAL ONE (06:55)
[2018-08-23] MEDS ORDERED: PROPOFOL 10 MG/ML 20 ML VIAL IV ONE (06:55)
[2018-08-23] MEDS ORDERED: fentaNYL (PF) 50 MCG/ML 2 ML AMP ONE (06:55)
--- NOTE | 2018-08-23 06:55 | P.GSHP ---
History of Present Illness H&P Date: 08/23/18 Chief Complaint: Incisional hernia 68-year-old female presents today complaints of a incisional hernia. Hernia present after previous robotic right colectomy. Patient states she had a hernia repaired at the time of her robotic colectomy but developed postoperative swelling in the periumbilical region. CAT scan shows a 5.4 cm fascial defect. This contains loops of bowel. No obstruction seen. No change in bowel habits. Mild to moderate pain at times. Past Medical History Past Medical History: Cancer, GERD/Reflux, GI Bleed, Hypertension Additional Past Medical History / Comment(s): colon cancer. sciatica, "vision problem", cataract History of Any Multi-Drug Resistant Organisms: None Reported Past Surgical History: Cholecystectomy, Orthopedic Surgery, Tonsillectomy Additional Past Surgical History / Comment(s): right wrist surgery post fracture Past Anesthesia/Blood Transfusion Reactions: No Reported Reaction Past Psychological History: Anxiety - Past Family History Mother Family Medical History: Cancer Additional Family Medical History / Comment(s): Bladder cancer. Sister(s) Family Medical History: Cancer Additional Family Medical History / Comment(s): Colon cancer. Medications and Allergies Home Medications Medication Instructions Recorded Confirmed Type Felodipine [Felodipine ER] 5 mg PO QAM 10/11/16 08/23/18 History PARoxetine HCL [Paxil] 40 mg PO QAM 10/11/16 08/23/18 History Cholecalciferol [Vitamin D3] 2,000 unit PO DAILY 08/18/18 08/23/18 History Allergies Allergy/AdvReac Type Severity Reaction Status Date / Time benazepril Allergy Swelling Verified 08/23/18 06:14 Penicillins Allergy Swelling Verified 08/23/18 06:14 sertraline [From Zoloft] Allergy Swelling Verified 08/23/18 06:14 Sulfa (Sulfonamide Allergy Swelling Verified 08/23/18 06:14 Antibiotics) Surgical - Exam Vital Signs Temp Pulse Resp BP Pulse Ox 98.2 F 67 16 134/64 90 L 08/23/18 06:08 08/23/18 06:08 08/23/18 06:08 08/23/18 06:08 08/23/18 06:08 Physical exam: General: Well-developed, well-nourished HEENT: Normocephalic, sclerae nonicteric Abdomen: Nontender, nondistended, reducible incisional hernia Extremities: No edema Neuro: Alert and oriented Assessment and Plan (1) Incisional hernia Narrative/Plan: Options discussed with the patient. Open versus laparoscopic approach reviewed. Patient did well with her recent robotic right colectomy. Proceed with robotic/laparoscopic repair of this incisional hernia. Mesh will be utilized. Risks of bleeding, infection, recurrence, bladder and bowel injury , numbness, nerve injury, conversion to an open procedure were discussed with the patient. The patient understands and wishes to proceed. Current Visit: Yes Status: Acute Code(s): K43.2 - INCISIONAL HERNIA WITHOUT OBSTRUCTION OR GANGRENE SNOMED Code(s): 951070886
[2018-08-23] MEDS ORDERED: BUPIVACAINE (PF) 0.25% 30 ML VIAL SQ ONE ×2 (07:30)
[2018-08-23] MEDS ORDERED: LACTATED RINGERS 1,000 ML IV ONE ×3 (08:11→11:29)
[2018-08-23] MEDS ORDERED: NALOXONE 0.4 MG/ML 1 ML VIAL IV PRN ×2 (09:48→11:55)
--- NOTE | 2018-08-23 09:52 | P.OP ---
Date of Procedure: 08/23/18 Procedure(s) Performed: PREOPERATIVE DIAGNOSIS: Incisional hernia POSTOPERATIVE DIAGNOSIS: Same PROCEDURE: Laparoscopic repair incisional hernia with da Chris robotic assistance with mesh SURGEON: Claudio EBL: 5 Marisa ANESTHESIA: Gen. COMPLICATIONS: None OPERATIVE PROCEDURE: Patient was placed on the operating room table in the supine position. Patient was then placed under general anesthesia. The abdomen was prepped and draped in usual sterile fashion. A 5 mm optical trocar was used to enter the abdominal cavity in the left lateral abdomen location and laterally. Insufflation took place fully to 15 mm of mercury. At that point a 8 mm trocar was placed in the left subcostal location. An 8 mm trocar was placed in the left lower quadrant. The initial 5 was then switched to an 8 mm trocar as well. All of these were placed under direct visualization. The trochars were placed so that the neutral center of the trocar was within the abdominal wall. The xi da Chris robot was then docked after placing the patient in a slight right decubitus position. I then left the bedside and moved to the da Chris console. The patient's hernia was inspected. The hernia itself was quite large. There was omentum adherent to the hernia sac which was easily lysed using electrocautery. The hernia sac was then partially excised with the use of electrocautery. The defect in the fascia measured 8.5 cm in length vertically by 5 cm in width. Using a #1 strattafix suture the fascia was reapproximated in a running fashion. A total of 2 of the 18 and sutures were utilized. This provided nice closure of the fascia. Following that the 10 x 15 cm ventral light mesh was utilized. This was carefully sutured circumferentially using 2-0 V lock sutures. This was performed in a running fashion using 3 separate sutures. The middle portion of the mesh was also sutured to the abdominal wall. This provided excellent coverage of our fascial closure. We then switched to a traditional laparoscopic approach. The 5 needles were removed at that point. The hernia sac was also removed. The skin at all 3 sites were closed using interrupted 4-0 Monocryl sutures. Skin glue and sterile dressings were applied. DISPOSITION: Stable to recovery room
[2018-08-23] MEDS: HYDROmorphone 0.5 MG/0.5 ML SYRINGE IVP PRN ×4 (10:03→10:30)
[2018-08-23] MEDS ORDERED: KETOROLAC 30 MG/ML 1 ML VIAL IVP ONE (10:04)
[2018-08-23] MEDS ORDERED: ONDANSETRON 4 MG/2 ML VIAL IVP PRN (11:55)
[2018-08-23] MEDS ORDERED: ACETAMINOPHEN TAB 325 MG TAB PO PRN (11:55)
[2018-08-23 16:17] VITALS: BMI 30.4
[2018-08-23] MEDS: HEPARIN SODIUM,PORCINE 5,000 UNIT/ML 1 ML VIAL SQ SCH (16:59)
[2018-08-23] MEDS: FAMOTIDINE 20 MG TAB PO SCH (21:04)
[2018-08-23] MEDS: DOCUSATE 100 MG CAP PO SCH (21:04)
[2018-08-23] MEDS: D5-0.45% NACL WITH KCL 20MEQ/L 1,000 ML IV SCH (21:22)
[2018-08-23] MEDS ORDERED: ALBUTEROL NEBULIZED 2.5 MG/3 ML INHALATION PRN (21:30)
[2018-08-23] MEDS: HYDROcodone/APAP 5-325MG 1 EACH TAB PO PRN (21:37)
[2018-08-24] MEDS: HEPARIN SODIUM,PORCINE 5,000 UNIT/ML 1 ML VIAL SQ SCH ×4 (00:54→23:07)
[2018-08-24] MEDS: HYDROcodone/APAP 5-325MG 1 EACH TAB PO PRN ×4 (01:13→21:10)
[2018-08-24] MEDS: LACTATED RINGERS 1,000 ML IV SCH (03:19)
[2018-08-24] MEDS: D5-0.45% NACL WITH KCL 20MEQ/L 1,000 ML IV SCH ×2 (06:13→10:19)
[2018-08-24] MEDS: DOCUSATE 100 MG CAP PO SCH ×2 (08:02→21:10)
[2018-08-24] MEDS: FAMOTIDINE 20 MG TAB PO SCH ×2 (08:02→21:11)
--- NOTE | 2018-08-24 11:23 | P.PN ---
<Cheryl King Johnna - Last Filed: 08/24/18 11:16> Subjective Progress Note Date: 08/24/18 HISTORY OF PRESENT ILLNESS: 68-year-old female who underwent laparoscopic repair of incisional hernia. She is POD #1. Patient examined this morning at the bedside. Patient is complaining of abdominal pain. She is tolerating regular diet. Denies nausea or vomiting. She remains on 13 L high flow cannula. She denies shortness of breath or cough at rest. Physical therapy attempted to work with patient. Patient's oxygen saturations dropped to 87% sitting at the bedside. Patient states she quit smoking 2 years ago after smoking for many years. She states she has never seen a personal finance instructor before. PHYSICAL EXAM: VITAL SIGNS: Currently stable. Remains on high flow nasal cannula GENERAL: Well-developed in no acute distress. HEENT: No sclera icterus. Extraocular movements grossly intact. Moist buccal mucosa. Head is atraumatic, normocephalic. Hears conversational speech. No nasal drainage. NECK: Supple without lymphadenopathy. CHEST: Non-labored respirations and equal bilateral excursions on 13 L high flow cannula. CARDIOVASCULAR: Regular rate with regular rhythm. Palpable 2+ radial pulses. ABDOMEN: Soft. Nondistended. Abdominal binder in place. Surgical site without drainage. MUSCULOSKELETAL: No clubbing, cyanosis or edema. NEUROLOGIC: No focal or lateralizing signs. Cranial nerves II through XII grossly intact. PSYCH: Appropriate affect. Alert and oriented to person, place and time. SKIN: Well perfused. Good skin turgor. ASSESSMENT: 1. Status post repair of incisional hernia, POD #1 2. Postoperative acute hypoxic respiratory failure, requiring high flow nasal cannula PLAN: 1. Continue regular diet 2. Pain control 3. Incentive spirometry 4. Wean oxygen as tolerated 5. PT/OT 6. Consult pulmonary for evaluation Nurse practitioner note has been reviewed by physician. Signing provider agrees with the documented findings, assessment, and plan of care. Objective - Vital Signs Vital signs: Vital Signs Temp 97.8 F 08/24/18 07:00 Pulse 72 08/24/18 09:55 Resp 16 08/24/18 07:00 BP 128/76 08/24/18 07:00 Pulse Ox 92 L 08/24/18 07:00 Intake & Output 08/23/18 08/24/18 08/24/18 18:59 06:59 18:59 Intake Total 2800 480 Output Total 25 Balance 2775 480 Intake: IV 2800 Oral 480 Output: Estimated Blood Loss 25 Other: Voiding Method Toilet # Voids 1 2 <Spike Snyder - Last Filed: 08/24/18 21:56> Subjective As above. Patient still having relative hypoxia. Pulmonary consultation appreciated. Pain is improving. Tolerating diet. Home when cleared by pulmonary. Objective - Vital Signs Vital signs: Vital Signs Temp 98.2 F 08/24/18 14:27 Pulse 84 08/24/18 19:58 Resp 20 08/24/18 21:03 BP 146/76 08/24/18 14:27 Pulse Ox 89 L 08/24/18 19:58 Intake & Output 08/24/18 08/24/18 08/25/18 06:59 18:59 06:59 Intake Total 1012 Balance 1012 Intake: Oral 1012 Other: Voiding Method Toilet # Voids 2 1 1 Assessment and Plan (1) Incisional hernia Current Visit: Yes Status: Acute Code(s): K43.2 - INCISIONAL HERNIA WITHOUT OBSTRUCTION OR GANGRENE SNOMED Code(s): 105930455
[2018-08-24] MEDS: amLODIPine 5 MG TAB PO SCH (12:43)
[2018-08-24] MEDS: PARoxetine 20 MG TAB PO SCH (12:45)
[2018-08-24] MEDS: IPRATROPIUM-ALBUTEROL 3 ML NEB INHALATION SCH ×3 (15:47→19:48)
--- NOTE | 2018-08-24 17:06 | XR ---
EXAMINATION TYPE: XR chest 1V DATE OF EXAM: 08/24/2018 COMPARISON: 11/16/2017 HISTORY: Short of breath TECHNIQUE: Single frontal view of the chest is obtained. FINDINGS: There is no heart failure. There is coarsening of interstitial markings. There is blunting of costophrenic angles. There is right central venous catheter with the tip in the superior vena cav a. IMPRESSION: There is new atelectasis at the lung bases compared to last exam. No heart failure.
[2018-08-24] MEDS ORDERED: FUROSEMIDE 10 MG/ML 4 ML VIAL IV STA (18:08)
--- NOTE | 2018-08-24 18:09 | P.CNPUL ---
History of Present Illness Consult date: 08/24/18 Reason for consult: hypoxemia History of present illness: 68-year-old female patient underwent an incisional hernia repair and postop day #1 the patient becomes hypoxic and currently is up to 15 L of oxygen by nasal cannula. This procedure was done by general surgery without any complications. Incision is dry clean and intact. Mother the patient has a previous history of colon cancer. The patient undergone a previous right colectomy and subsequently she developed an incisional hernia. She has already completed chemotherapy following her colectomy. She is a chronic smoker in she quit smoking approximately 2 years ago. She has chronic exertional dyspnea. His attributed to her COPD. Occasional cough and congestion. No hemoptysis. No pleurisy. Note that prior to her surgery the patient was on room air oxygen. She is on Levaquin and utilized inhalers. She hasn't been taking any form of maintenance for now. I reviewed the previous CAT scan of the chest that was on this patient back in May 2018 and intact shown emphysematous changes bilaterally. The echo is within normal limits with an ejection fraction of 6065 %. This is based on echocardiogram from 2018 and the patient has no significant pulmonary hypertension or valvular heart disease. No previous history of DVT or pulmonary embolism. No neck swelling. She is using incentive spirometer and she is barely reaching thousand on today's evaluation. No fever. No chills. Chest x-ray showed some atelectatic changes in the lung bases and there is a mild pulmonary vascular congestion. Despite her ongoing hypoxemia, the patient is comfortable and she has no specific complaints. No tachycardia. No fever. Review of Systems Constitutional: Denies chills, Denies fever Eyes: denies as per HPI, denies blurred vision, denies bulging eye, denies decreased vision, denies diplopia, denies discharge, denies dry eye, denies irritation, denies itching, denies pain, denies photophobia, denies loss of peripheral vision, denies loss of vision, denies tunnel vision/blind spots Ears: deny: decreased hearing, ear discharge, earache, tinnitus Ears, nose, mouth and throat: Denies headache, Denies sore throat Breasts: absent: as per HPI, change in shape, gynecomastia, masses, nipple discharge, pain, skin changes, swelling Cardiovascular: Reports dyspnea on exertion Respiratory: Reports dyspnea Gastrointestinal: Reports as per HPI Genitourinary: Reports as per HPI Menstruation: Reports as per HPI Musculoskeletal: Reports as per HPI Musculoskeletal: absent: ankle pain, ankle stiffness, ankle swelling, as per HPI , elbow pain, elbow stiffness, elbow swelling, foot pain, foot stiffness, foot swelling, hand pain, hand stiffness, hand swelling, hip pain, hip stiffness, hip swelling, knee pain, knee stiffness, knee swelling, shoulder pain, shoulder stiffness, shoulder swelling, wrist pain, wrist stiffness, wrist swelling Integumentary: Reports as per HPI Neurological: Reports as per HPI Psychiatric: Reports as per HPI Endocrine: Reports as per HPI Hematologic/Lymphatic: Reports as per HPI Allergic/Immunologic: Reports as per HPI Past Medical History Past Medical History: Cancer, GERD/Reflux, GI Bleed, Hypertension Additional Past Medical History / Comment(s): colon cancer, seizure hernia, sciatica, cataracts History of Any Multi-Drug Resistant Organisms: None Reported Past Surgical History: Cholecystectomy, Orthopedic Surgery, Tonsillectomy Additional Past Surgical History / Comment(s): right wrist surgery post fracture Past Anesthesia/Blood Transfusion Reactions: No Reported Reaction Smoking Status: Former smoker - Past Family History Mother Family Medical History: Cancer Additional Family Medical History / Comment(s): Bladder cancer. Sister(s) Family Medical History: Cancer Additional Family Medical History / Comment(s): Colon cancer. Medications and Allergies Home Medications Medication Instructions Recorded Confirmed Type Felodipine [Felodipine ER] 5 mg PO QAM 10/11/16 08/23/18 History PARoxetine HCL [Paxil] 40 mg PO QAM 10/11/16 08/23/18 History Cholecalciferol [Vitamin D3] 2,000 unit PO DAILY 08/18/18 08/23/18 History ARIPiprazole [Abilify] 1 tab PO HS 08/23/18 08/23/18 History Hydrocodone/Acetaminophen [Ethel 1 tab PO Q6HR PRN 3 Days #10 tab 08/23/18 Rx 5-325] Allergies Allergy/AdvReac Type Severity Reaction Status Date / Time benazepril Allergy Swelling Verified 08/23/18 16:09 Penicillins Allergy Swelling Verified 08/23/18 16:09 sertraline [From Zoloft] Allergy Swelling Verified 08/23/18 16:09 Sulfa (Sulfonamide Allergy Swelling Verified 08/23/18 16:09 Antibiotics) Physical Exam Vitals: Vital Signs Temp Pulse Pulse Resp BP Pulse Ox 08/24/18 16:04 72 08/24/18 15:48 72 08/24/18 14:27 98.2 F 75 20 146/76 90 L 08/24/18 09:55 72 08/24/18 09:42 72 08/24/18 07:00 97.8 F 71 16 128/76 92 L 08/24/18 03:23 90 L 08/23/18 23:45 99.1 F 78 19 120/67 92 L 08/23/18 21:18 98.7 F 89 20 133/72 82 L Intake and Output 08/24/18 08/24/18 08/24/18 06:59 14:59 22:59 Intake Total 776 Balance 776 Intake: Oral 776 Other: Voiding Method Toilet # Voids 2 1 Gen. appearance, comfortable likely distress currently on 15 L of oxygen by nasal cannula Head exam was generally normal. There was no scleral icterus or corneal arcus. Mucous membranes were moist. Neck was supple and without jugular venous distension, thyromegaly, or carotid bruits. Carotids were easily palpable bilaterally. There was no adenopathy. Lungs sounds are diminished bilaterally especially lung bases. Respiratory effort several week and the patient is pulling approximately 500-750 on the incentive spirometer. Cardiac exam revealed the PMI to be normally situated and sized. The rhythm was regular and no extrasystoles were noted during several minutes of auscultation. The first and second heart sounds were normal and physiologic splitting of the second heart sound was noted. There were no murmurs, rubs, clicks, or gallops. Abdomen is soft and the bowel sounds are hypoactive and there is no direct tenderness hemoptysis or guarding. The mid abdominal incision is dry clean and intact. Examination of the extremities revealed easily palpable radial, femoral and pedal pulses. There was no cyanosis, clubbing or edema. Examination of the skin revealed no evidence of significant rashes, suspicious appearing nevi or other concerning lesions. Neurologically awake and alert and there is no focal neurological deficit. Results - Diagnostic Findings Chest x-ray: image reviewed Assessment and Plan Plan: Assessment 1 acute hypoxic respiratory failure, currently on 15 L of oxygen nasal cannula. Patient has background COPD. She has also developed some postoperative atelectatic changes in lung bases and there may be mild component of pulmonary vessel congestion on the chest x-ray findings. Pulmonary embolism is highly doubtful. She is calm and comfortable. No tachycardia. No aspiration. No signs of any pneumonia. 2 COPD 3 incisional hernia repair and the patient is postop day #1 4 history of colon cancer with a previous colectomy 5 chronic depression Plan Aggressive use of incentive spirometer. Avoid any sedative medications or painkillers such as narcotics that could potentially suppress the breathing. Wean down the FiO2 as tolerated. Ambulate this patient. Give 40 mg of IV Lasix. Give the patient 60 mg of IV Solu-Medrol for now and repeated in the morning. Initiate DuoNeb neb last 2 minutes [id number]. Repeat chest x- ray in the morning. No need for any CT imaging at this point time. I think the patient's oxidation will gradually improve over the next 24 hours. She will need outpatient follow-up regarding her COPD . We'll continue to follow.
[2018-08-24] MEDS: methylPREDNISolone SOD SUCCI 125 MG/2 ML VIAL IV SCH ×2 (18:25→23:08)
[2018-08-24] MEDS: BUDESONIDE 1 MG/2 ML NEBU INHALATION SCH (19:48)
[2018-08-24] MEDS: ARIPiprazole 5 MG TAB PO SCH (21:10)
--- NOTE | 2018-08-24 21:26 | P.ONQ ---
Anesthesiology Proc Note - PNB - Peripheral Nerve Block Performed Left Transversus Abdominis Single Time Out Performed: Yes Procedure Start Time: 10:46 Procedure Stop Time: 10:49 Indication: Acute Post-Operative Pain, Requested by physician Sedation Type: Sedate with meaningful contact maintained Preparation: Sterile Prep Position: Supine Needle Size: 50mm (2") Needle Gauge: 21 Technique: Ultrasound (ropi .5% 15cc plus xylo 2% 15cc) Injectate: 0.5% Ropivacaine (see comment for volume) Blood Aspirated: No Pain Paresthesia on Injection Noted: No Resistance on Injection: Normal Events: Uneventful and Well Tolerated
--- NOTE | 2018-08-25 00:40 | CONS ---
CONSULTATION DATE OF CONSULTATION: 08/24/2018 REASON FOR CONSULTATION: Medical management requested by Dr. Vergara. CONSULTATION: This is a pleasant 68-year-old patient of Dr. Ty who is status post incisional hernia repair with mesh placement by Dr. Snyder. Post procedure, the patient has been short of breath requiring oxygen, saturation dropping down to low 80s. The patient had been a long-standing smoker. Stopped smoking about 2 years ago. Denied any significant respiratory symptoms prior to admission. Patient had somewhat limited activity. Denies any calf pain. No fever. No chills. I started the patient earlier on DuoNeb. REVIEW OF SYSTEMS: CONSTITUTIONAL: None. HEENT none. RESPIRATORY: Some short of breath, cough and mild wheezing. CARDIOVASCULAR: None. GASTROINTESTINAL: Heartburn. GENITOURINARY: None. MUSCULOSKELETAL: Some arthritic pain in different joints. DERMATOLOGICAL, HEMATOLOGIC, LYMPHATIC: None. PSYCHIATRY: Some anxiety. NEUROLOGICAL: None. PAST MEDICAL HISTORY: GERD, hypertension, colon cancer, seizure, sciatica. PAST SURGICAL HISTORY: Cholecystectomy orthopedic surgery, tonsillectomy, right wrist surgery. PSYCH HISTORY: Anxiety. SOCIAL HISTORY: The patient smoked less than a pack a day for close to 45 years, stopped 2 years ago. Alcohol occasionally. . FAMILY HISTORY: Bladder cancer. HOME MEDICATIONS: Abilify 5 one tablet p.o. q.h.s., Paxil 40 mg a day. Felodipine 5 mg a day, vitamin D3 2000 units p.o. daily, Gamerco 5 one tablet q.6h p.r.n. ALLERGIES: BENAZEPRIL, PENICILLIN, ZOLOFT, SULFUR. PHYSICAL EXAMINATION: Temperature 98.2, pulse 95 and respiratory rate 20, blood pressure 146/76, pulse ox 98% on 3 L. GENERAL APPEARANCE: Sitting up in a chair, slightly short of breath. EYES: Pupils equal. Conjunctivae normal. HEENT: External appearance of nose and ears normal. Oral cavity normal. NEUROLOGICAL: Pupils equal. Cranial nerves grossly intact. Power and sensation grossly intact. MUSCULOSKELETAL: Evidence of osteoarthritis especially in the hands and knees. INVESTIGATIONS: Blood work from August 17, 2018 shows hemoglobin 13.5. ASSESSMENT: 1. Acute chronic obstructive pulmonary disease exacerbation in an ex-smoker. 2. Acute hypoxic respiratory failure, multifactorial, probably some diaphragm limitation from a binder in place and atelectasis. 3. Gastroesophageal reflux disease. 4. Essential hypertension. 5. Primary osteoarthritis. 6. Anxiety not otherwise specified. PLAN: Patient is started on DuoNeb, IV Solu-Medrol per Dr. Brown. We will also add inhaled steroids. We will have the patient uses inspiratory spirometry. Chest x-ray film was personally reviewed by me. This questionable venous prominence, will check a BNP. Care was discussed with the patient and . Questions were answered. Thank you Dr. Snyder. Copy to Dr. Ty. MMRASHIDL / VASILEN: [id number] /
[2018-08-25] MEDS: LACTATED RINGERS 1,000 ML IV SCH (03:23)
[2018-08-25] MEDS: D5-0.45% NACL WITH KCL 20MEQ/L 1,000 ML IV SCH ×2 (06:24→21:53)
[2018-08-25] MEDS: methylPREDNISolone SOD SUCCI 125 MG/2 ML VIAL IV SCH ×3 (07:44→23:07)
[2018-08-25] MEDS: HEPARIN SODIUM,PORCINE 5,000 UNIT/ML 1 ML VIAL SQ SCH ×3 (07:44→23:06)
[2018-08-25] MEDS: DOCUSATE 100 MG CAP PO SCH ×2 (07:45→20:22)
[2018-08-25] MEDS: FAMOTIDINE 20 MG TAB PO SCH ×2 (07:45→20:22)
[2018-08-25] MEDS: amLODIPine 5 MG TAB PO SCH (07:45)
[2018-08-25] MEDS: PARoxetine 20 MG TAB PO SCH (07:45)
[2018-08-25] MEDS: IPRATROPIUM-ALBUTEROL 3 ML NEB INHALATION SCH ×4 (08:26→21:20)
[2018-08-25] MEDS: BUDESONIDE 1 MG/2 ML NEBU INHALATION SCH ×2 (08:26→21:20)
[2018-08-25] MEDS ORDERED: RX INFO: IV CONTRAST WAS GIVEN 1 EACH MISC MISCELLANE PRN (11:42)
[2018-08-25 12:12] LABS: Calcium 9.5 mg/dL (8.4-10.2); Potassium 4.6 mmol/L (3.5-5.1)
--- NOTE | 2018-08-25 13:31 | P.PN ---
Subjective Progress Note Date: 08/25/18 Principal diagnosis: Incisional hernia repair. Post operative hypoxemia. Postoperative day #2. 68-year-old female patient underwent an incisional hernia repair and postop day #1 the patient becomes hypoxic and currently is up to 15 L of oxygen by nasal cannula. This procedure was done by general surgery without any complications. Incision is dry clean and intact. Mother the patient has a previous history of colon cancer. The patient undergone a previous right colectomy and subsequently she developed an incisional hernia. She has already completed chemotherapy following her colectomy. She is a chronic smoker in she quit smoking approximately 2 years ago. She has chronic exertional dyspnea. His attributed to her COPD. Occasional cough and congestion. No hemoptysis. No pleurisy. Note that prior to her surgery the patient was on room air oxygen. She is on Levaquin and utilized inhalers. She hasn't been taking any form of maintenance for now. I reviewed the previous CAT scan of the chest that was on this patient back in May 2018 and intact shown emphysematous changes bilaterally. The echo is within normal limits with an ejection fraction of 6065 %. This is based on echocardiogram from 2018 and the patient has no significant pulmonary hypertension or valvular heart disease. No previous history of DVT or pulmonary embolism. No neck swelling. She is using incentive spirometer and she is barely reaching thousand on today's evaluation. No fever. No chills. Chest x-ray showed some atelectatic changes in the lung bases and there is a mild pulmonary vascular congestion. Despite her ongoing hypoxemia, the patient is comfortable and she has no specific complaints. No tachycardia. No fever. The patient is seen today 08/25/2017 in follow-up on the regular medical floor. She is awake and alert in no acute distress. She is currently sitting up in a chair at the bedside. She is still on a routine liters high flow nasal cannula. She does deny any worsening shortness of breath, cough or congestion. She does have some dyspnea on exertion only. Complete rest up in the chair at the bedside. Sodium 137. Potassium 4.6. Creatinine 0.85. ProBNP 1909. He is currently on DuoNeb inhalations, Pulmicort inhalations, IV Solu-Medrol. Objective - Vital Signs Vital signs: Vital Signs Temp 98.5 F 08/25/18 07:00 Pulse 80 08/25/18 12:13 Resp 17 08/25/18 07:00 BP 146/83 08/25/18 07:00 Pulse Ox 93 L 08/25/18 12:16 Intake & Output 08/24/18 08/25/18 08/25/18 18:59 06:59 18:59 Intake Total 1012 200 Balance 1012 200 Intake: Oral 1012 200 Other: Voiding Method Toilet Toilet Toilet # Voids 1 1 1 - Exam GENERAL EXAM: Alert, active, comfortable in no apparent distress. On 13 L high flow nasal cannula. HEAD: Normocephalic. EYES: Normal reaction of pupils, equal size. NOSE: Clear with pink turbinates. THROAT: No erythema or exudates. NECK: No masses, no JVD. CHEST: No chest wall deformity. LUNGS: Equal air entry with end expiratory wheeze, diminished. CVS: S1 and S2 normal with no audible murmur, regular rhythm. ABDOMEN: Binder in place. Soft, normal bowel sounds, no guarding or rigidity. SPINE: No scoliosis or deformity SKIN: No rashes CENTRAL NERVOUS SYSTEM: No focal deficits, tone is normal in all 4 extremities. EXTREMITIES: There is no peripheral edema. No clubbing, no cyanosis. Peripheral pulses are intact. - Labs CBC & Chem 7: 08/25/18 08:43 Labs: Abnormal Lab Results - Last 24 Hours (Table) 08/25/18 Range/Units 08:43 Glucose 203 H (74-99) mg/dL Assessment and Plan Assessment: Assessment 1 acute hypoxic respiratory failure, currently on 13 L of oxygen nasal cannula. Patient has background COPD. She has also developed some postoperative atelectatic changes in lung bases and there may be mild component of pulmonary vessel congestion on the chest x-ray findings. Pulmonary embolism is highly doubtful. She is calm and comfortable. No tachycardia. No aspiration. No signs of any pneumonia. 2 COPD 3 incisional hernia repair and the patient is postop day #2 4 history of colon cancer with a previous colectomy 5 chronic depression Plan The patient was seen and evaluated by Dr. Brown. We'll continue to titrate down her FiO2 as tolerated. Currently down to 10 L and she is maintaining O2 saturations in the mid 90s. Continue to titrate as tolerated. We'll increase her activity as tolerated. Continue to work with the incentive spirometer. Continue bronchodilators and steroids. We'll continue to follow make further recommendations based on her clinical status. We'll discharge in the a.m. I, the cosigning physician, performed a history & physical examination of the patient. Lungs sounds with few scattered rhonchi, end expiratory wheeze. Maintaining good O2 saturations in the 90s on 10 L high flow nasal cannula. I discussed the assessment and plan of care with my nurse practitioner, Mayda Ramos. I attest to the above note as dictated by her.
--- NOTE | 2018-08-25 14:14 | CT ---
EXAMINATION TYPE: CT angio chest DATE OF EXAM: 08/25/2018 2:02 PM COMPARISON: 06/02/2018 HISTORY: Incisional hernia some SOB CT DLP: 328.6 mGycm Automated exposure control for dose reduction was used. CONTRAST: CTA scan of the thorax is performed with IV Contrast, patient injected with 100, wasted 16 mL of Isov ue 370, pulmonary embolism protocol. . FINDINGS: LUNGS: Biapical pleural thickening. Diffuse emphysematous changes. Bilateral lower lobe consolidation . Bilateral subpleural nodularity is nonspecific. Small right pleural effusion. No pneumothorax. MEDIASTINUM: Atherosclerotic change of the aorta. Coronary artery calcification. No evidence of aneur ysm. Mild cardiomegaly. Pulmonary arteries enhance normally. OTHER: There is soft tissue emphysema along the right upper abdomen. Extends into the right flank. H iatal hernia noted. Hypertrophic and degenerative change of the spine. Mediport catheter noted. Calci fication along the dome of the liver noted. IMPRESSION: 1. COPD with bilateral lower lobe infiltrate and small effusion correlate for pneumonia. 2. No diagnostic evidence of pulmonary embolism. 3. there is nonspecific soft tissue emphysema along the right abdomen. Correlate clinically.
[2018-08-25] MEDS: HYDROcodone/APAP 5-325MG 1 EACH TAB PO PRN (15:03)
--- NOTE | 2018-08-25 17:23 | P.PN ---
Subjective Progress Note Date: 08/25/18 Principal diagnosis: Incisional hernia Patient doing better today. Less pain today. Breathing seems improved. She is ambulating in halls. Objective - Vital Signs Vital signs: Vital Signs Temp 97.6 F 08/25/18 14:36 Pulse 84 08/25/18 16:29 Resp 18 08/25/18 14:36 BP 144/77 08/25/18 14:36 Pulse Ox 90 L 08/25/18 16:13 Intake & Output 08/24/18 08/25/18 08/25/18 18:59 06:59 18:59 Intake Total 1012 600 Balance 1012 600 Intake: Oral 1012 600 Other: Voiding Method Toilet Toilet Toilet # Voids 1 1 1 - Exam Abdomen: Soft, nondistended, mild tenderness - Labs CBC & Chem 7: 08/25/18 08:43 Labs: Abnormal Lab Results - Last 24 Hours (Table) 08/25/18 Range/Units 08:43 Glucose 203 H (74-99) mg/dL Assessment and Plan (1) Incisional hernia Narrative/Plan: May shower today. Continue pulmonary toilet. Possible discharge tomorrow if cleared by pulmonary. Current Visit: Yes Status: Acute Code(s): K43.2 - INCISIONAL HERNIA WITHOUT OBSTRUCTION OR GANGRENE SNOMED Code(s): 245690280
[2018-08-25] MEDS: ARIPiprazole 5 MG TAB PO SCH (20:22)
[2018-08-26] MEDS: LACTATED RINGERS 1,000 ML IV SCH (05:17)
[2018-08-26] MEDS: IPRATROPIUM-ALBUTEROL 3 ML NEB INHALATION SCH ×3 (07:45→15:51)
[2018-08-26] MEDS: BUDESONIDE 1 MG/2 ML NEBU INHALATION SCH (07:45)
[2018-08-26 09:04] VITALS: BP 155/74; RESP 18; TEMP 98
[2018-08-26] MEDS: FAMOTIDINE 20 MG TAB PO SCH (09:13)
[2018-08-26] MEDS: methylPREDNISolone SOD SUCCI 125 MG/2 ML VIAL IV SCH ×2 (09:13→16:36)
[2018-08-26] MEDS: PARoxetine 20 MG TAB PO SCH (09:13)
[2018-08-26] MEDS: amLODIPine 5 MG TAB PO SCH (09:13)
[2018-08-26] MEDS: HEPARIN SODIUM,PORCINE 5,000 UNIT/ML 1 ML VIAL SQ SCH ×2 (09:13→17:29)
[2018-08-26] MEDS: DOCUSATE 100 MG CAP PO SCH (09:13)
[2018-08-26] MEDS ORDERED: MAGNESIUM CITRATE 296 ML BOTTLE PO ONE (09:53)
--- NOTE | 2018-08-26 09:53 | P.PN ---
Subjective Progress Note Date: 08/26/18 Principal diagnosis: Incisional hernia Patient feels better today. Breathing seems improved. Only mild pain at this time. Objective - Vital Signs Vital signs: Vital Signs Temp 98.0 F 08/26/18 08:05 Pulse 86 08/26/18 08:05 Resp 18 08/26/18 08:05 BP 155/74 08/26/18 08:05 Pulse Ox 92 L 08/26/18 08:05 Intake & Output 08/25/18 08/26/18 08/26/18 18:59 06:59 18:59 Intake Total 1000 600 Balance 1000 600 Intake: Oral 1000 600 Other: Voiding Method Toilet Toilet Toilet # Voids 1 2 - Exam Abdomen: Soft, nondistended, incisions clean and dry - Labs CBC & Chem 7: 08/25/18 08:43 Labs: Abnormal Lab Results - Last 24 Hours (Table) 08/25/18 Range/Units 08:43 Glucose 203 H (74-99) mg/dL Assessment and Plan (1) Incisional hernia Narrative/Plan: Continue weaning oxygen. Possible discharge today if cleared by pulmonary Current Visit: Yes Status: Acute Code(s): K43.2 - INCISIONAL HERNIA WITHOUT OBSTRUCTION OR GANGRENE SNOMED Code(s): 786206811
--- NOTE | 2018-08-26 11:38 | PN ---
PROGRESS NOTE DATE OF SERVICE: 08/25/2018 PRESENTING COMPLAINT: Short of breath. INTERVAL HISTORY: This is a patient who is status post incisional hernia repair. Postoperatively she had exacerbation of COPD. Since the patient was still short of breath, I did order a CT scan of the chest to rule out pulmonary embolism. The patient's air entry is somewhat better. It is felt that the patient's hypoxia is chronic and not just being manifested here. Some component could be from the binder on the belly she received postoperatively. The patient has started to eat better. Does feel a bit better. REVIEW OF SYSTEMS: Done for constitutional, cardiovascular, GI, pulmonary; relevant findings as above. CURRENT MEDICATIONS: Reviewed. They include IV Solu-Medrol, bronchodilator. PHYSICAL EXAMINATION: Temperature 98.5, pulse 75, respiration 18, blood pressure 136/81, pulse ox 98% on 5 L. GENERAL APPEARANCE: Sitting up in a chair. Awake. EYES: Pupils equal. Conjunctivae normal. NECK: JVD not raised. Mass not palpable. RESPIRATORY: Effort normal. LUNGS: Diminished breath sounds. CARDIOVASCULAR: First and second sounds normal. No edema. ABDOMEN: Soft, non-tender. Liver and spleen not palpable. PSYCHIATRY: Alert and oriented x3. Mood and affect normal. INVESTIGATIONS: No blood work from today. ASSESSMENT: 1. Acute chronic obstructive pulmonary disease exacerbation an ex-smoker. 2. Acute hypoxic respiratory failure, multifactorial. 3. Suspect underlying chronic hypoxic respiratory failure from underlying chronic obstructive pulmonary disease. 4. Pulmonary embolism to be ruled out. Will order a CT scan of the chest with PE protocol. 5. Essential hypertension. 6. Primary osteoarthritis. 7. Anxiety not otherwise specified. PLAN: I discussed with Dr. Brown. The CT scan was done which did come back showing negative for PE. Patient will require oxygen at home and currently steroids as per Pulmonary. Patient's proBNP did come back at 1910. MMODL / IJN: [id number] /
--- NOTE | 2018-08-26 13:08 | P.PN ---
Subjective Progress Note Date: 08/26/18 Principal diagnosis: Incisional hernia repair. Post operative hypoxemia. Postoperative day #2. 68-year-old female patient underwent an incisional hernia repair and postop day #1 the patient becomes hypoxic and currently is up to 15 L of oxygen by nasal cannula. This procedure was done by general surgery without any complications. Incision is dry clean and intact. Mother the patient has a previous history of colon cancer. The patient undergone a previous right colectomy and subsequently she developed an incisional hernia. She has already completed chemotherapy following her colectomy. She is a chronic smoker in she quit smoking approximately 2 years ago. She has chronic exertional dyspnea. His attributed to her COPD. Occasional cough and congestion. No hemoptysis. No pleurisy. Note that prior to her surgery the patient was on room air oxygen. She is on Levaquin and utilized inhalers. She hasn't been taking any form of maintenance for now. I reviewed the previous CAT scan of the chest that was on this patient back in May 2018 and intact shown emphysematous changes bilaterally. The echo is within normal limits with an ejection fraction of 6065 %. This is based on echocardiogram from 2018 and the patient has no significant pulmonary hypertension or valvular heart disease. No previous history of DVT or pulmonary embolism. No neck swelling. She is using incentive spirometer and she is barely reaching thousand on today's evaluation. No fever. No chills. Chest x-ray showed some atelectatic changes in the lung bases and there is a mild pulmonary vascular congestion. Despite her ongoing hypoxemia, the patient is comfortable and she has no specific complaints. No tachycardia. No fever. The patient is seen today 08/25/2018 in follow-up on the regular medical floor. She is awake and alert in no acute distress. She is currently sitting up in a chair at the bedside. She is still on a routine liters high flow nasal cannula. She does deny any worsening shortness of breath, cough or congestion. She does have some dyspnea on exertion only. Complete rest up in the chair at the bedside. Sodium 137. Potassium 4.6. Creatinine 0.85. ProBNP 1909. He is currently on DuoNeb inhalations, Pulmicort inhalations, IV Solu-Medrol. The patient is seen today 08/26/2018 in follow-up on the regular medical floor and she is currently sitting up in chair at the bedside. She's been up ambulating in the room without significant shortness of breath. She is breathing easier today as compared to yesterday. She is down to liters per minute per nasal cannula to maintain O2 saturations in the 90s. She is 85% on room air. She's been afebrile. Continued on DuoNeb inhalations, Pulmicort and Perforomist inhalations, IV Solu-Medrol. Objective - Vital Signs Vital signs: Vital Signs Temp 98.0 F 08/26/18 08:05 Pulse 72 08/26/18 12:05 Resp 18 08/26/18 08:05 BP 155/74 08/26/18 08:05 Pulse Ox 85 L 08/26/18 10:42 Intake & Output 08/25/18 08/26/18 08/26/18 18:59 06:59 18:59 Intake Total 1000 600 Balance 1000 600 Intake: Oral 1000 600 Other: Voiding Method Toilet Toilet Toilet # Voids 1 2 - Exam GENERAL EXAM: Alert, active, comfortable in no apparent distress. On 5 L high flow nasal cannula. HEAD: Normocephalic. EYES: Normal reaction of pupils, equal size. NOSE: Clear with pink turbinates. THROAT: No erythema or exudates. NECK: No masses, no JVD. CHEST: No chest wall deformity. LUNGS: Equal air entry with end expiratory wheeze, diminished. CVS: S1 and S2 normal with no audible murmur, regular rhythm. ABDOMEN: Binder in place. Soft, normal bowel sounds, no guarding or rigidity. SPINE: No scoliosis or deformity SKIN: No rashes CENTRAL NERVOUS SYSTEM: No focal deficits, tone is normal in all 4 extremities. EXTREMITIES: There is no peripheral edema. No clubbing, no cyanosis. Peripheral pulses are intact. - Labs CBC & Chem 7: 08/25/18 08:43 Assessment and Plan Assessment: Assessment 1 acute hypoxic respiratory failure, currently on 5 L of oxygen nasal cannula. Patient has background COPD. She has also developed some postoperative atelectatic changes in lung bases and there may be mild component of pulmonary vessel congestion on the chest x-ray findings. Pulmonary embolism is highly doubtful. She is calm and comfortable. No tachycardia. No aspiration. No signs of any pneumonia. 2 COPD 3 incisional hernia repair and the patient is postop day #3 4 history of colon cancer with a previous colectomy 5 chronic depression Plan The patient was seen and evaluated by Dr. Brown. The patient is quite anxious to go home. She is willing to go home with oxygen. She is still requiring 3 L to maintain O2 saturations in the 90s. She'll go home with a nebulizer and albuterol, Symbicort, prednisone burst and taper. She should follow-up in our office in 1 week's time. She would benefit from full pulmonary function testing to evaluate the severity of her suspected COPD. I, the cosigning physician, performed a history & physical examination of the patient. Lungs sounds with few scattered rhonchi, end expiratory wheeze. Maintaining good O2 saturations in the 90s on 3 L high flow nasal cannula. I discussed the assessment and plan of care with my nurse practitioner, Mayda Ramos. I attest to the above note as dictated by her.
[2018-08-26 16:04] VITALS: PULSE 77
[2018-08-26] MEDS: D5-0.45% NACL WITH KCL 20MEQ/L 1,000 ML IV SCH (17:29)
--- NOTE | 2018-08-26 22:54 | PN ---
PROGRESS NOTE DATE OF SERVICE: August 26, 2018. PRESENTING COMPLAINT: Short of breath. INTERVAL HISTORY: The patient is doing much better today. Breathing is better. Oxygen is down to 3 L. Did tolerate her diet, up to the bathroom. Had a bowel movement. REVIEW OF SYSTEMS: Done for constitutional, cardiovascular, GI, pulmonary; relevant findings as above. CURRENT MEDICATIONS: Reviewed. PHYSICAL EXAMINATION: VITAL SIGNS: Temperature 98, pulse 86, respiratory 18, blood pressure 155/74, pulse ox 85 percent on room air. GENERAL APPEARANCE: Sitting up in a chair. Awake. EYES: Pupils are equal. Conjunctivae normal. NECK: JVD not raised. Mass not palpable. RESPIRATORY: Effort normal. LUNGS: Decreased breath sounds. CARDIOVASCULAR: 1st and 2nd sounds normal. No edema. ABDOMEN: Soft, nontender. Liver and spleen not palpable. PSYCHIATRY: Alert and oriented x3. Mood and affect normal. INVESTIGATIONS: CT scan negative for PE. ASSESSMENT: 1. Acute chronic obstructive pulmonary disease exacerbation in an ex-smoker. 2. Acute hypoxic respiratory failure from above. 3. Chronic hypoxic respiratory failure from underlying chronic obstructive pulmonary disease. 4. Pulmonary embolism ruled out. 5. Essential hypertension. 6. Primary osteoarthritis. 7. Anxiety, not otherwise specified. 8. Status post abdominal surgery for incisional hernia. PLAN: Care was discussed at length with the patient. The patient will be sent home on DuoNeb and tapering dose of steroids. The patient probably will need long-term oxygen but to be further evaluated in the office. Care also discussed with the patient's . Thank you Dr. Snyder. MMRASHIDL / VASILEN: [id number] /
--- NOTE | 2018-08-29 12:25 | CDI ---
Documentation Clarification Form Date: 08/29/2018 11:01:44 AM From: Chiquita Betancur RN, CCDS Admit Date: 08/24/2018 7:41:00 PM Patient Name: Yanni Morales Visit Number: [id number] Discharge Date: 08/26/2018 6:01:00 PM ATTENTION: The Clinical Documentation Specialists (CDI) and [facility] Coding Staff appreciate your assistance in clarifying documentation. Please respond to the clarification below the line at the bottom and electronically sign. The CDI & [facility] Coding staff will review the response and follow-up if needed. Please note: Queries are made part of the Legal Health Record. If you have any questions, please contact the author of this message via ITS. Dr. Ileana Brown Acute hypoxic respiratory failure is documented in the progress note on 08/24/18 and ongoing progress notes. Patient has background COPD. Patients Admitting Diagnosis: Incision hernia Post-Operative Diagnosis: same Procedure performed: Laparoscopic repair incisional hernia with de Chris robotic assistance with mesh History/Risk Factors: Cancer, GI Bleed, Hypertension, COPD, tobacco use Clinical Indicators: 68-year-old female postop repair of incisional hernia became hypoxic and was placed on 15 L of oxygen by nasal cannula. She is a chronic smoker who quite smoking approximately 2 years ago. She has chronic exertional dyspnea. Cat scan of chest in May 2018 shown emphysematous changes bilaterally. 08/24/18 Chest X-ray: New atelectasis at the lung bases. No heart failure. 08/25/18 CT angio chest: COPD with bilateral lower lobe infiltrate and small effusion correlate pneumonia. nonspecific soft tissue emphysema along the right abdomen. Treatment: Monitor O2 Sat's (titrate) Solu-Medrol IV (taper) Kefzol IVP Lasix IV x1 Ventolin Nebulized Pulmicort Inhalation Home O2 per orders Consults: Dr. Villegas: It is felt that the patient's hypoxia is chronic and not just being manifested here. Some component could be from the binder on the belly she received postoperatively. Acute hypoxic respiratory failure, multifactorial. Suspect underlying chronic hypoxic respiratory failure from underlying chronic obstructive pulmonary disease. In order to accurately reflect this patients severity of illness, please clarify if the post-operative diagnosis acute hypoxic respiratory failure is: An expected post-procedural or post-surgical condition (due to: specify) An unexpected post-procedural or post-surgical condition related to surgical care Other, please specify Unable to determine (Last Revision: September 2017) An expected post-procedural or post-surgical condition (due to: specify) MTDD
--- NOTE | 2018-08-29 12:59 | CDI ---
Documentation Clarification Form Date: 08/29/2018 12:26:20 PM From: Chiquita Betancur RN, CCDS Admit Date: 08/24/2018 7:41:00 PM Patient Name: Yanni Morales Visit Number: [id number] Discharge Date: 08/26/2018 6:01:00 PM ATTENTION: The Clinical Documentation Specialists (CDI) and [facility] Coding Staff appreciate your assistance in clarifying documentation. Please respond to the clarification below the line at the bottom and electronically sign. The CDI & [facility] Coding staff will review the response and follow-up if needed. Please note: Queries are made part of the Legal Health Record. If you have any questions, please contact the author of this message via ITS. Dr. Ileana Brown Postoperative atelectatic changes in lung bases are documented in your consult and ongoing progress notes. Patients Admitting Diagnosis: Incisional Hernia Post-Operative Diagnosis: Same Procedure performed: Laparoscopic repair incisional hernia with de Chris robotic assistance with mesh History/Risk Factors: Cancer, GI Bleed, Hypertension COPD, Former tobacco use Clinical Indicators: Post procedure of laparoscopic repair of incisional hernia patient was noted to have O2 saturation of 82 % on 6/L NC. She has chronic exertional dyspnea. This attributed to her COPD. Occasional cough and congestion. Lung sounds are diminished bilaterally especially lung bases. Respiratory effort is weak. 08/24/17: Chest x-ray: There is new atelectasis at the lung bases. Treatment: Incentive Spirometer Ventolin nebulized Pulmicort Inhalation Monitor O2 Sat's Solu-Medrol IV (taper) Kefzol IV X1 Consults: Dr. Villegas: It is felt that the patient's hypoxia is chronic and not just being manifested here. Some component could be from the binder on the belly she received postoperatively. In order to accurately reflect this patients severity of illness, please clarify if the post-operative atelectatic changes diagnosis is: An expected post-procedural or post-surgical condition Integral to the procedure Inherent to the procedure An unexpected post-procedural or post-surgical condition related to surgical care Other, please specify Unable to determine (Last Revision: September 2017) An expected post-procedural or post-surgical condition MTDD
== END 2018-08-26 18:01 | disposition home or self-care (01) | DRG 353 ==
LOC: OR 05:47 → 4SSUR 14:14 → OR 08-24 15:12 → 4SSUR 08-24 19:41
PROVIDERS: ADMIT Surgery; ATTEND Surgery
PROC: 0WUF4JZ Supplement Abdominal Wall with Synthetic Substitute, Percutaneous Endoscopic Approach (ICD-10-PCS; principal; 2018-08-23 07:00)
PROC: 8E0W4CZ Robotic Assisted Procedure of Trunk Region, Percutaneous Endoscopic Approach (ICD-10-PCS; principal; 2018-08-23 07:00)
PROC: 3E0M45Z Introduction of Adhesion Barrier into Peritoneal Cavity, Percutaneous Endoscopic Approach (ICD-10-PCS; principal; 2018-08-23 07:00)
DX: K43.2 Incisional hernia without obstruction or gangrene (principal); J96.21 Acute and chronic respiratory failure with hypoxia; J44.1 Chronic obstructive pulmonary disease with (acute) exacerbation; J98.11 Atelectasis; F32.9 Major depressive disorder, single episode, unspecified; F41.9 Anxiety disorder, unspecified; I10 Essential (primary) hypertension; K21.9 Gastro-esophageal reflux disease without esophagitis; M19.91 Primary osteoarthritis, unspecified site; Z80.0 Family history of malignant neoplasm of digestive organs; Z80.52 Family history of malignant neoplasm of bladder; Z85.038 Personal history of other malignant neoplasm of large intestine; Z87.891 Personal history of nicotine dependence; Z90.49 Acquired absence of other specified parts of digestive tract; Z92.21 Personal history of antineoplastic chemotherapy; Z79.899 Other long term (current) drug therapy; Z88.0 Allergy status to penicillin; Z88.2 Allergy status to sulfonamides; Z88.8 Allergy status to other drugs, medicaments and biological substances
CPT/HCPCS: 36415; 71045; 71275; 80048; 83880; 86850; 86900; 86901; 88302; 94640

== ENCOUNTER → 2018-10-11 | Outpatient (CLI) | payer MEDICARE ==
--- NOTE | 2018-10-12 12:12 | MM ---
Reason for exam: screening (asymptomatic). Last mammogram was performed 1 year and 1 month ago. History: Patient is postmenopausal and history of other cancer. Family history of breast cancer in grandmother. Physical Findings: A clinical breast exam by your physician is recommended on an annual basis and results should be correlated with mammographic findings. MG 3D Screening Mammo W/Cad Bilateral CC and MLO view(s) were taken. Prior study comparison: September 15, 2017, bilateral MG 3d screening mammo w/cad. September 03, 2016, mammogram, performed at [facility]. The breast tissue is heterogeneously dense. This may lower the sensitivity of mammography. Stable benign calcifications. There is no discrete abnormality. No significant changes when compared with prior studies. ASSESSMENT: Benign, BI-RAD 2 RECOMMENDATION: Routine screening mammogram of both breasts in 1 year.
== END ==
LOC: RADMAMWWP 14:38
PROVIDERS: ATTEND Family Medicine
DX: Z12.31 Encounter for screening mammogram for malignant neoplasm of breast (principal)
CPT/HCPCS: 77063; 77067

== ENCOUNTER → 2019-06-13 | Day surgery (SDC) | payer MEDICARE ==
[2019-06-08 16:02] VITALS: BMI 27.4
[~2019-06-13] MED LIST changes: -HEPARIN SODIUM,PORCINE 5,000 UNIT/ML 1 ML VIAL SQ ONE; +LACTATED RINGERS 1,000 ML IV SCH; +LIDOCAINE 1% INJ 10MG/ML (20 ML MDV) ONE; +PROPOFOL 10 MG/ML 20 ML VIAL IV ONE; -ceFAZolin IN SWFI 2 GM/20 ML SYRINGE IVP ONE
[2019-06-13 07:50] VITALS: RESP 16; TEMP 96.8
--- NOTE | 2019-06-13 08:01 | P.GSHP ---
History of Present Illness H&P Date: 06/13/19 Chief Complaint: colon cancer screening 69-year-old female underwent robotic right colectomy for nearly obstructing right colon cancer in May 2016. 1 out of 17 lymph nodes positive at that time. Postoperatively has done well. Last colonoscopy 2 years ago which was no rmal. Here today for routine follow-up colonoscopy. No complaints. Past Medical History Past Medical History: Cancer, GERD/Reflux, GI Bleed, Hypertension, Mus culoskeletal Disorder Additional Past Medical History / Comment(s): colon cancer 2016-had surg. & chemo, sciatica History of Any Multi-Drug Resistant Organisms: None Reported Past Surgical History: Bowel Resection, Cholecystectomy, Orthopedic Surgery, Tonsillectomy Additional Past Surgical History / Comment(s): right wrist surgery post fracture, robotic colectomy Past Anesthesia/Blood Transfusion Reactions: No Reported Reaction Smoking Status: Former smoker - Past Family History Mother Family Medical History: Cancer Additional Family Medical History / Comment(s): Bladder cancer. Sister(s) Family Medical History: Cancer Additional Family Medical History / Comment(s): Colon cancer. Medications and Allergies Home Medications Medication Instructions Recorded Confirmed Type Felodipine [Felodipine ER] 5 mg PO QAM 10/11/16 06/13/19 History Gabapentin [Neurontin] 300 mg PO TID 06/08/19 06/13/19 History Venlafaxine HCl [Effexor XR] 150 mg PO DAILY 06/08/19 06/13/19 History Allergies Allergy/AdvReac Type Severity Reaction Status Date / Time benazepril Allergy Swelling Verified 06/13/19 07:45 Penicillins Allergy Swelling Verified 06/13/19 07:45 sertraline [From Zoloft] Allergy Swelling Verified 06/13/19 07:45 Sulfa (Sulfonamide Allergy Swelling Verified 06/13/19 07:45 Antibiotics) Surgical - Exam Vital Signs Temp Pulse Resp BP Pulse Ox 96.8 F L 77 16 122/63 93 L 06/13/19 07:49 06/13/19 07:49 06/13/19 07:49 06/13/19 07:49 06/13/19 07:49 Physical exam: General: Well-developed, well-nourished HEENT: Normocephalic, sclerae nonicteric Abdomen: Nontender, nondistended Extremities: No edema Neuro: Alert and oriented Assessment and Plan (1) Colon cancer screening Narrative/Plan: Will proceed with colonoscopy Current Visit: Yes Status: Acute Code(s): Z12.11 - ENCOUNTER FOR SCREENING FOR MALIGNANT NEOPLASM OF COLON SNOMED Code(s): 454729839
--- NOTE | 2019-06-13 08:21 | P.PCN ---
Date of Procedure: 06/13/19 Procedure(s) Performed: PREOPERATIVE DIAGNOSIS: colon cancer screening, personal history POSTOPERATIVE DIAGNOSIS: diverticulosis PROCEDURE: Colonoscopy ANESTHESIA: MAC SURGEON: Spike Snyder M.D. SPECIMENS: none ENDOSCOPIC PROCEDURE: The patient was placed on the endoscopy table in the left decubitus position. The Olympus colonoscope was inserted into the anus and passed under direct visualization to the ileocolonic anastomosis in the mid transverse colon. The anastomosis was widely patent without abnormalities. From that point the scope was slowly withdrawn inspecting all surfaces carefully. There were no neoplastic inflammatory or polypoid lesions throughout the transverse, descending, sigmoid and rectum. There was moderate left-sided diverticulosis noted. Digital rectal examination was normal. The patient was taken to the recovery room in stable condition per anesthesia guidelines. RECOMMENDATIONS: increase fiber. Follow-up colonoscopy 3 years.
[2019-06-13 08:45] VITALS: PULSE 68
[2019-06-13 08:52] VITALS: BP 99/58
== END | disposition home or self-care (01) ==
LOC: ORWHC2ENDO 07:29
PROVIDERS: ATTEND Surgery
DX: Z08 Encounter for follow-up examination after completed treatment for malignant neoplasm (principal); Z85.038 Personal history of other malignant neoplasm of large intestine; I10 Essential (primary) hypertension; K21.9 Gastro-esophageal reflux disease without esophagitis; Z87.891 Personal history of nicotine dependence; Z88.0 Allergy status to penicillin; Z88.2 Allergy status to sulfonamides; Z90.49 Acquired absence of other specified parts of digestive tract
CPT/HCPCS: 45378; J2001; J2704

== ENCOUNTER → 2019-06-15 | Outpatient (CLI) | payer MEDICARE ==
--- NOTE | 2019-06-15 12:47 | CT ---
EXAMINATION TYPE: CT ChestAbdPelvis w con DATE OF EXAM: 06/15/2019 COMPARISON: August 25, 2018 and 06/02/2018 HISTORY: Follow up colon cancer. CT DLP: 713.3 mGycm CONTRAST: CT scan of the chest, abdomen and pelvis is performed with Oral Contrast and with IV Contrast, patien t injected with 100 mL of Isovue 300. CT Chest: LUNGS: The lungs are clear and free of infiltrate or atelectasis. No pulmonary nodule or mass is det ected. Mild upper lobe emphysematous changes redemonstrated. No pleural effusion or CT evidence of i nterstitial lung disease. MEDIASTINUM: Thoracic aorta is of normal caliber. The heart is not enlarged. No evidence for media stinal mass or adenopathy. HILAR STRUCTURES: No evidence for mass. No hilar adenopathy is appreciated. OTHER: No significant abnormality. CONTRAST CT ABDOMEN AND PELVIS FINDINGS: LIVER/GB: The gallbladder surgically absent. No space occupying hepatic lesion. Biliary tree is of no rmal caliber. PANCREAS: No inflammation. No distinct mass. SPLEEN: No splenic enlargement. No lesion seen. ADRENALS: No nodule. No thickening. KIDNEYS/BLADDER: No hydronephrosis. No nephrolithiasis. No distinct renal mass. BOWEL: Partial right-sided hemicolectomy noted. An anastomotic site appears patent. No evidence for r ecurrent or residual mass. No evidence of bowel obstruction or leak. No pneumoperitoneum. I do not se e evidence for inflammatory or obstructive change. Mild scattered diverticula without diverticulitis. GENITAL ORGANS: No gross abnormality. LYMPH NODES: No greater than 1cm abdominal or pelvic lymph nodes are appreciated. AORTA: No significant abnormality. OSSEOUS STRUCTURES: No significant abnormality is seen. OTHER: No significant additional abnormality is seen. IMPRESSION: 1. No evidence for recurrent disease or metastatic disease. Partial right-sided hemicolectomy as note d above.
== END | disposition home or self-care (01) ==
LOC: RADCTMAIN 10:25
PROVIDERS: ATTEND Internal Medicine Hematology & Oncology
DX: C18.2 Malignant neoplasm of ascending colon (principal); Z90.49 Acquired absence of other specified parts of digestive tract
CPT/HCPCS: 82565; 84520; 71260; 74177; 36415; Q9967

== ENCOUNTER → 2020-01-07 | Outpatient (CLI) | payer MEDICARE ==
--- NOTE | 2020-01-09 11:04 | MM ---
Reason for exam: screening (asymptomatic). Last mammogram was performed 1 year and 3 months ago. History: Patient is postmenopausal and history of other cancer. Family history of breast cancer in grandmother. Physical Findings: A clinical breast exam by your physician is recommended on an annual basis and results should be correlated with mammographic findings. MG 3D Screening Mammo W/Cad Bilateral CC and MLO view(s) were taken. Prior study comparison: October 11, 2018, bilateral MG 3d screening mammo w/cad. September 15, 2017, bilateral MG 3d screening mammo w/cad. The breast tissue is heterogeneously dense. This may lower the sensitivity of mammography. No significant changes when compared with prior studies. ASSESSMENT: Benign, BI-RAD 2 RECOMMENDATION: Routine screening mammogram of both breasts in 1 year.
== END | disposition home or self-care (01) ==
LOC: RADMAMWWP 15:01
PROVIDERS: ATTEND Family Medicine
DX: Z12.31 Encounter for screening mammogram for malignant neoplasm of breast (principal)
CPT/HCPCS: 77063; 77067

== ENCOUNTER → 2020-06-05 | Outpatient (CLI) | payer MEDICARE ==
--- NOTE | 2020-06-05 13:09 | CT ---
EXAMINATION TYPE: CT ChestAbdPelvis w con DATE OF EXAM: 06/05/2020 COMPARISON: CT June 15, 2019 and older CTs HISTORY: Colon CA, Observe for mets CT DLP: 1252.7 mGycm. Automated Exposure Control for Dose Reduction was Utilized. CONTRAST: CT scan of the thorax, abdomen and pelvis is performed with oral and with IV Contrast, patient inject ed with 80 mL of Isovue 300. FINDINGS: LUNGS: Moderate underlying emphysematous change is redemonstrated. No suspicious new nodules or cedrick s. No pleural effusion or pneumothorax is seen. Mild bibasilar linear scarring and/or atelectasis. MEDIASTINUM: Stable slightly enlarged right paratracheal 1.4 x 1.5 cm lymph node axial image 23. No n ew or enlarging thoracic lymph nodes otherwise identified. No cardiomegaly or pericardial effusion i s seen. Coronary artery calcification is redemonstrated. OTHER: Stable right internal jugular Mediport catheter. LIVER/GB: Cholecystectomy clips redemonstrated. Liver remains heterogeneously hypodense relative to s pleen without new suspicious mass. PANCREAS: No significant abnormality is seen. SPLEEN: No significant abnormality is seen. ADRENALS: No significant abnormality is seen. KIDNEYS: Symmetric cortical medullary uptake and excretion from both kidneys without concerning renal mass or hydronephrosis seen bilaterally. BOWEL: Oral contrast reaches level of rectum. Prominent diverticula throughout the colon greatest in the left and sigmoid colon. No CT evidence for acute diverticulitis. Short segment 3 to 4 cm focal ar ea of moderate concentric wall thickening distal left colon axial image 82. Favor spasm, new concentr ic neoplasm cannot be excluded. Consider colonoscopy follow-up to further evaluate if has not been pe rformed in last 3 years. Redemonstration of proximal partial colectomy and small bowel anastomosis ri ght abdomen. Few scattered nonspecific air-fluid levels throughout small bowel loops. GENITAL ORGANS: Small size anteverted uterus. LYMPH NODES: No greater than 1cm abdominal or pelvic lymph nodes are appreciated. OSSEOUS STRUCTURES: Underlying scoliosis with moderate multilevel spurring in the spine moderate narr owing of both hip joints. OTHER: Moderate calcified plaque of the aorta extends into branch vessels. IMPRESSION: 1. Short segment concerning the area of distal left colon as detailed above. Consider colonoscopy ev aluation if it has not been performed in the last 3 years. Otherwise no new suspicious mass or adenop athy to suggest neoplastic recurrence.
== END | disposition home or self-care (01) ==
LOC: RADCTMAIN 10:37
PROVIDERS: ATTEND Internal Medicine Hematology & Oncology
DX: C18.2 Malignant neoplasm of ascending colon (principal); Z88.0 Allergy status to penicillin; Z88.2 Allergy status to sulfonamides
CPT/HCPCS: 82565; 84520; 71260; 74177; 36415; Q9967 ×2

== ENCOUNTER → 2020-10-21 | Outpatient (CLI) | payer MEDICARE ==
--- NOTE | 2020-10-21 17:07 | CT ---
EXAMINATION TYPE: CT angio chest DATE OF EXAM: 10/21/2020 COMPARISON: 08/25/2018 HISTORY: Dyspnea. Pt just diagnosed w/COPD stat hold and call CT DLP: 291.10 mGycm Automated exposure control for dose reduction was used. CONTRAST: Performed with IV Contrast, patient injected with 80 mL of Isovue 370. There are 3-D post processed images. There is diffuse pulmonary emphysema. Heart size is normal. There is no pericardial effusion. There a re mediastinal and bronchial lymph nodes that measure up to 1.3 cm. There are no hilar masses. Thorac ic aorta is atheromatous. There is no aneurysm or dissection. There is some patchy reticular intersti tial infiltrate at the lung bases. No discrete pulmonary mass. There is no evidence of filling defect in the pulmonary arteries. Heart size is fairly normal. There is some spurring in the thoracic spine. I see no bony destructive process. Upper abdominal soft tissues are intact. IMPRESSION: No evidence of pulmonary embolism. Pulmonary emphysema. Fibrotic changes and atelectasis at the lung bases bilaterally with improvement compared to old exam.
== END | disposition home or self-care (01) ==
LOC: RADCTMAIN 17:00
PROVIDERS: ATTEND Internal Medicine
DX: J43.9 Emphysema, unspecified (principal); J98.11 Atelectasis
CPT/HCPCS: 82565; 84520; 71275; 36415; Q9967

== ENCOUNTER → 2021-02-23 | Outpatient (CLI) | payer MEDICARE ==
--- NOTE | 2021-02-25 11:05 | MM ---
Reason for exam: screening (asymptomatic). Last mammogram was performed 1 year and 2 months ago. History: Patient is postmenopausal and has history of colon cancer at age 63. Family history of breast cancer in grandmother. Physical Findings: A clinical breast exam by your physician is recommended on an annual basis and results should be correlated with mammographic findings. MG 3D Screening Mammo W/Cad Bilateral CC and MLO view(s) were taken. Prior study comparison: January 07, 2020, bilateral MG 3d screening mammo w/cad. October 11, 2018, bilateral MG 3d screening mammo w/cad. September 15, 2017, bilateral MG 3d screening mammo w/cad. The breast tissue is heterogeneously dense. This may lower the sensitivity of mammography. No significant changes when compared with prior studies. ASSESSMENT: Benign, BI-RAD 2 RECOMMENDATION: Routine screening mammogram of both breasts in 1 year.
== END | disposition home or self-care (01) ==
LOC: RADMAMWWP 14:00
PROVIDERS: ATTEND Family Medicine
DX: Z12.31 Encounter for screening mammogram for malignant neoplasm of breast (principal); Z80.3 Family history of malignant neoplasm of breast
CPT/HCPCS: 77063; 77067

== ENCOUNTER 2021-03-04 01:29 | Inpatient (IN) | payer MEDICARE ==
[2021-03-04 02:22] LABS: Glucose,Whole Blood 117 mg/dL (75-99)
--- NOTE | 2021-03-04 02:49 | XR ---
EXAMINATION TYPE: XR chest 1V DATE OF EXAM: 03/04/2021 COMPARISON: 10/21/2020 HISTORY: Altered mental status : FINDINGS: Heart and mediastinum appear normal. Lungs are clear of infiltrate. There is right central venous cat heter with tip in the superior vena cava. There is no pleural effusion. There are no hilar masses. IMPRESSION: No active cardiopulmonary disease. No change.
[2021-03-04 02:50] LABS: Basophils % (A) 0 %; Eosinophils % (A) 0 %; HCT 40.4 % (34.0-46.0); HGB 13.5 gm/dL (11.4-16.0); Lymphocytes # (A) 0.9 k/uL (1.0-4.8); Lymphocytes % (A) 10 %; MCH 29.8 pg (25.0-35.0); MCHC 33.3 g/dL (31.0-37.0); MCV 89.3 fL (80.0-100.0); Mean Platelet Volume 6.6; Monocytes # (A) 0.6 k/uL (0-1.0); Monocytes % (A) 6 %; Neutrophils # (A) 7.6 k/uL (1.3-7.7); Neutrophils % (A) 81 %; Platelet Count 347 k/uL (150-450); RBC 4.52 m/uL (3.80-5.40); RDW 14.4 % (11.5-15.5); WBC 9.3 k/uL (3.8-10.6)
--- NOTE | 2021-03-04 02:52 | CT ---
EXAMINATION TYPE: CT brain wo con for TPA DATE OF EXAM: 03/04/2021 COMPARISON: 11/16/2017 HISTORY: DIZZINESS, BLURRED VISION, FALL CT DLP: 1578.2 mGycm Automated exposure control for dose reduction was used. There is cerebral cortical atrophy. There is no mass effect nor midline shift. There is no sign of in tracranial hemorrhage. There is some hypodensity in the periventricular white matter. There is 5 mm h ypodensity in the anterior left and right internal capsule consistent with old lacunar infarcts. Ther e is some noticeable white matter hypodensity right posterior parietal lobe unchanged. The calvarium is intact. Skull base is intact. IMPRESSION: Cerebral atrophy. Chronic small vessel ischemia. No change compared to old exam.
[2021-03-04 02:56] LABS: Partial Thromboplastin Time 22.2 sec (22.0-30.0); Prothrombin Time 10.3 sec (9.0-12.0)
[2021-03-04 02:58] LABS: Albumin 3.7 g/dL (3.5-5.0); Calcium 9.7 mg/dL (8.4-10.2); Total Bilirubin 0.4 mg/dL (0.2-1.3); Total Protein 6.3 g/dL (6.3-8.2)
--- NOTE | 2021-03-04 03:00 | CT ---
EXAMINATION TYPE: CT angio head neck DATE OF EXAM: 03/04/2021 COMPARISON: None HISTORY: DIZZINESS, BLURRED VISION FALL. RULE OUT STROKE CT DLP: 1578.2 mGycm Automated exposure control for dose reduction was used. CONTRAST: Performed with IV Contrast, patient injected with 65 mL of Isovue 370. Images obtained from the aortic arch to the vertex of the brain with IV contrast. There are 3-D post processed images. There is normal branching pattern of the great vessels on the aortic arch. There is bilateral arteria l flow in the subclavian arteries. There is arterial flow in the common internal and external carotid arteries bilaterally. There is arterial flow in both vertebral arteries. There is plaque formation a nd calcification at the carotid artery bifurcations bilaterally. There is approximate 20% stenosis at the right carotid artery bifurcation. There is approximate 30% stenosis at the origin of the left in ternal carotid artery. There is no evidence of carotid or vertebral artery aneurysm or dissection. There is arterial flow in the anterior middle and posterior cerebral arteries bilaterally. There is n o mass effect. There is no sign of intracranial aneurysm or neovascularity. There is atherosclerotic calcification in the intracranial internal carotid arteries. I see no hemodynamic stenosis. There is normal enhancement of the venous sinuses. IMPRESSION: Atherosclerotic vascular disease at the carotid artery bifurcations without evidence of hemodynamic s tenosis. Moderate atheromatous calcification of the wall of the intracranial internal carotid arteries. No hem odynamic stenosis.
[2021-03-04 03:13] LABS: Potassium 2.6 mmol/L (3.5-5.1)
[2021-03-04] MEDS ORDERED: POTASSIUM CHLORIDE ER 20 MEQ TAB.ER PO STA (04:02)
[2021-03-04] MEDS ORDERED: SODIUM CHLORIDE 0.9% 1,000 ML IV STA (04:03)
[2021-03-04] MEDS ORDERED: SODIUM CHLORIDE 0.9% 1,000 ML IV ONE (04:03)
[2021-03-04] MEDS ORDERED: ASPIRIN 81 MG PO STA (04:03)
--- NOTE | 2021-03-04 04:30 | ED ---
Neuro HPI - General Chief Complaint: Fall Stated Complaint: Fall Time Seen by Provider: 03/04/21 02:03 Source: patient, EMS Mode of arrival: EMS Limitations: no limitations - History of Present Illness Is the patient presenting with stroke symptoms?: Yes Last Known Well Date: 03/03/21 Last Known Well Time: 19:00 -: hour(s) Initial Comments: This patient is a 70-year-old woman who presents with complaint of developing vertical diplopia tonight. Patient has had previous episodes of this vertical diplopia. Patient states that she had been at home when she noticed this. She states that it made it somewhat difficult for her to walk and she did fall. She denies any trauma as a result of the fall. Patient was reluctant to come into the hospital at first but her eventually persuaded her to be seen here. Patient's also noted around 7 PM that there was some left-sided facial droop that is still present. She notes that the diplopia has resolved. Patient denies any headache. She did not note any other neurologic symptoms at home. No change in speech or swallowing. No extremity weakness or numbness. Location: left face History of same: No Place: home Severity: mild Quality: weak Improves With: none Worsens With: none On Anticoagulants: No Context: sudden onset Associated Symptoms: other Treatments Prior to Arrival: none - Related Data Home Medications: Home Medications Medication Instructions Recorded Confirmed ALPRAZolam [Xanax] 0.5 mg PO BID PRN 03/04/21 03/04/21 ARIPiprazole [Abilify] 5 mg PO Q48H 03/04/21 03/04/21 Felodipine ER [Plendil] 5 mg PO DAILY 03/04/21 03/04/21 Fluticasone/Umeclidin/Vilanter 1 tab PO DAILY 03/04/21 03/04/21 [Trelegy Ellipta 100-62.5-25] Melatonin 10 mg PO HS PRN 03/04/21 03/04/21 PARoxetine HCL 40 mg PO DAILY 03/04/21 03/04/21 Tolterodine ER [Detrol LA] 4 mg PO DAILY 03/04/21 03/04/21 Vits A,C,E/Lutein/Minerals 1 tab PO DAILY 03/04/21 03/04/21 [Ocuvite with Lutein Tablet] Previous Rx's Medication Instructions Recorded Aspirin 81 mg PO DAILY 03/06/21 Atorvastatin [Lipitor] 40 mg PO HS #30 tablet 03/06/21 Clopidogrel Bisulfate [Plavix] 75 mg PO DAILY #21 tab 03/06/21 Allergies/Adverse Reactions: Allergies Allergy/AdvReac Type Severity Reaction Status Date / Time benazepril Allergy Swelling Verified 03/04/21 08:16 Penicillins Allergy Swelling Verified 03/04/21 08:16 sertraline [From Zoloft] Allergy Swelling Verified 03/04/21 08:16 Sulfa (Sulfonamide Allergy Swelling Verified 03/04/21 08:16 Antibiotics) Review of Systems ROS Statement: Those systems with pertinent positive or pertinent negative responses have been documented in the HPI. ROS Other: All systems not noted in ROS Statement are negative. Constitutional: Denies: fever, chills Eyes: Reports: vision change. Denies: eye pain Respiratory: Denies: cough, dyspnea Cardiovascular: Denies: chest pain, palpitations, orthopnea Gastrointestinal: Denies: abdominal pain, vomiting, diarrhea, constipation Genitourinary: Denies: dysuria, hematuria Musculoskeletal: Denies: back pain Skin: Denies: rash Neurological: Reports: vertigo. Denies: headache, weakness, numbness, paresthesias, confusion Psychiatric: Denies: anxiety General Exam General appearance: alert, in no apparent distress Head exam: Present: atraumatic, normocephalic Eye exam: Present: PERRL. Absent: conjunctival injection, periorbital swelling, periorbital tenderness ENT exam: Present: mucous membranes dry Neck exam: Present: normal inspection, full ROM. Absent: meningismus Respiratory exam: Present: normal lung sounds bilaterally. Absent: respiratory distress, wheezes, rales, rhonchi, stridor Cardiovascular Exam: Present: regular rate, normal rhythm, systolic murmur (Grade 3/6 systolic ejection murmur). Absent: diastolic murmur, rubs, gallop GI/Abdominal exam: Present: soft. Absent: distended, tenderness, guarding, rebound, rigid, mass Extremities exam: Present: normal inspection, normal capillary refill. Absent: pedal edema, calf tenderness Back exam: Present: normal inspection. Absent: CVA tenderness (R), CVA tenderness (L) Neurological exam: Present: alert, oriented X3. Absent: CN II-XII intact, motor sensory deficit Expanded Neurological exam: Present: protecting the airway Patient oriented to: Present: person, place, time Speech: Present: fluid speech Cranial nerves: EOM's Intact: Abnormal Left, Gag Reflex: Normal, Tongue Deviation: Normal, Facial Sensation: Normal, Facial Palsy with Forehead Movement: Abnormal Left Cerebellar function: Finger to Nose: Normal Upper motor neuron: Ganga Neglect: Normal Sensory exam: Upper Extremity Light Touch: Normal, Lower Extremity Light Touch: Normal Motor strength exam: RUE: 5, LUE: 5, RLE: 5, LLE: 5 Eye Response: (4) open spontaneously Motor Response: (6) obeys commands Verbal Response: (5) oriented Skin exam: Present: warm, dry, intact, normal color. Absent: rash Stroke MDM - Lab Data Result diagrams: 03/04/21 02:22 03/06/21 09:14 Lab Results 03/04/21 03/04/21 03/04/21 Range/Units 02:21 02:22 02:22 WBC 9.3 (3.8-10.6) k/uL RBC 4.52 (3.80-5.40) m/uL Hgb 13.5 (11.4-16.0) gm/dL Hct 40.4 (34.0-46.0) % MCV 89.3 (80.0-100.0) fL MCH 29.8 (25.0-35.0) pg MCHC 33.3 (31.0-37.0) g/dL RDW 14.4 (11.5-15.5) % Plt Count 347 (150-450) k/uL MPV 6.6 Neutrophils % 81 % Lymphocytes % 10 % Monocytes % 6 % Eosinophils % 0 % Basophils % 0 % Neutrophils # 7.6 (1.3-7.7) k/uL Lymphocytes # 0.9 L (1.0-4.8) k/uL Monocytes # 0.6 (0-1.0) k/uL Eosinophils # 0.0 (0-0.7) k/uL Basophils # 0.0 (0-0.2) k/uL ESR (0-20) mm/hr PT 10.3 (9.0-12.0) sec INR 1.0 (<1.2) APTT 22.2 (22.0-30.0) sec Sodium (137-145) mmol/L Potassium (3.5-5.1) mmol/L Chloride (98-107) mmol/L Carbon Dioxide (22-30) mmol/L Anion Gap mmol/L BUN (7-17) mg/dL Creatinine (0.52-1.04) mg/dL Est GFR (CKD-EPI)AfAm (>60 ml/min/1.73 sqM) Est GFR (CKD-EPI)NonAf (>60 ml/min/1.73 sqM) Glucose (74-99) mg/dL POC Glucose (mg/dL) 117 H (75-99) mg/dL POC Glu [employer] ID [address] Glu mg/dL Hemoglobin A1c (4.0-6.0) % Calcium (8.4-10.2) mg/dL Total Bilirubin (0.2-1.3) mg/dL AST (14-36) U/L ALT (4-34) U/L Alkaline Phosphatase (38-126) U/L Troponin I (0.000-0.034) ng/mL Total Protein (6.3-8.2) g/dL Albumin (3.5-5.0) g/dL 03/04/21 03/04/21 03/04/21 Range/Units 02:22 02:22 02:22 WBC (3.8-10.6) k/uL RBC (3.80-5.40) m/uL Hgb (11.4-16.0) gm/dL Hct (34.0-46.0) % MCV (80.0-100.0) fL MCH (25.0-35.0) pg MCHC (31.0-37.0) g/dL RDW (11.5-15.5) % Plt Count (150-450) k/uL MPV Neutrophils % % Lymphocytes % % Monocytes % % Eosinophils % % Basophils % % Neutrophils # (1.3-7.7) k/uL Lymphocytes # (1.0-4.8) k/uL Monocytes # (0-1.0) k/uL Eosinophils # (0-0.7) k/uL Basophils # (0-0.2) k/uL ESR 5 (0-20) mm/hr PT (9.0-12.0) sec INR (<1.2) APTT (22.0-30.0) sec Sodium 142 (137-145) mmol/L Potassium 2.6 L* (3.5-5.1) mmol/L Chloride 111 H (98-107) mmol/L Carbon Dioxide 20 L (22-30) mmol/L Anion Gap 11 mmol/L BUN 25 H (7-17) mg/dL Creatinine 1.21 H (0.52-1.04) mg/dL Est GFR (CKD-EPI)AfAm 52 (>60 ml/min/1.73 sqM) Est GFR (CKD-EPI)NonAf 45 (>60 ml/min/1.73 sqM) Glucose 122 H (74-99) mg/dL POC Glucose (mg/dL) (75-99) mg/dL POC Glu [employer] Operator ID Estimated Ave Glu mg/dL Hemoglobin A1c (4.0-6.0) % Calcium 9.7 (8.4-10.2) mg/dL Total Bilirubin 0.4 (0.2-1.3) mg/dL AST 22 (14-36) U/L ALT 12 (4-34) U/L Alkaline Phosphatase 96 (38-126) U/L Troponin I 0.115 H* (0.000-0.034) ng/mL Total Protein 6.3 (6.3-8.2) g/dL Albumin 3.7 (3.5-5.0) g/dL 03/04/21 Range/Units 02:22 WBC (3.8-10.6) k/uL RBC (3.80-5.40) m/uL Hgb (11.4-16.0) gm/dL Hct (34.0-46.0) % MCV (80.0-100.0) fL MCH (25.0-35.0) pg MCHC (31.0-37.0) g/dL RDW (11.5-15.5) % Plt Count (150-450) k/uL MPV Neutrophils % % Lymphocytes % % Monocytes % % Eosinophils % % Basophils % % Neutrophils # (1.3-7.7) k/uL Lymphocytes # (1.0-4.8) k/uL Monocytes # (0-1.0) k/uL Eosinophils # (0-0.7) k/uL Basophils # (0-0.2) k/uL ESR (0-20) mm/hr PT (9.0-12.0) sec INR (<1.2) APTT (22.0-30.0) sec Sodium (137-145) mmol/L Potassium (3.5-5.1) mmol/L Chloride (98-107) mmol/L Carbon Dioxide (22-30) mmol/L Anion Gap mmol/L BUN (7-17) mg/dL Creatinine (0.52-1.04) mg/dL Est GFR (CKD-EPI)AfAm (>60 ml/min/1.73 sqM) Est GFR (CKD-EPI)NonAf (>60 ml/min/1.73 sqM) Glucose (74-99) mg/dL POC Glucose (mg/dL) (75-99) mg/dL POC Glu [employer] Operator ID Estimated Ave Glu mg/dL 123 Hemoglobin A1c 5.9 (4.0-6.0) % Calcium (8.4-10.2) mg/dL Total Bilirubin (0.2-1.3) mg/dL AST (14-36) U/L ALT (4-34) U/L Alkaline Phosphatase (38-126) U/L Troponin I (0.000-0.034) ng/mL Total Protein (6.3-8.2) g/dL Albumin (3.5-5.0) g/dL - Medical Decision Making Patient 70-year-old woman presenting with symptoms concerning for acute ischemic stroke versus TIA. Patient has had some improvement in her condition however not back to baseline. Case is discussed with the stroke team patient is unfortunately outside of the temporal window TPA. Patient will be admitted to have further evaluation and treatment for suspected ischemic stroke versus TIA - EKG Data -: EKG Interpreted by Me EKG shows normal: sinus rhythm (Rate 65 bpm), axis (Normal), intervals (Normal) Rate: normal Interpretation: LVH Past Medical History Past Medical History: Cancer, GERD/Reflux, GI Bleed, Hypertension, Musculoskeletal Disorder Additional Past Medical History / Comment(s): colon cancer 2016-had surg. & chemo, sciatica History of Any Multi-Drug Resistant Organisms: None Reported Past Surgical History: Bowel Resection, Cholecystectomy, Orthopedic Surgery, Tonsillectomy Additional Past Surgical History / Comment(s): right wrist surgery post fracture, robotic colectomy Past Anesthesia/Blood Transfusion Reactions: No Reported Reaction Past Psychological History: Anxiety Smoking Status: Former smoker Past Alcohol Use History: Occasional Past Drug Use History: None Reported - Past Family History Mother Family Medical History: Cancer Additional Family Medical History / Comment(s): Bladder cancer. Sister(s) Family Medical History: Cancer Additional Family Medical History / Comment(s): Colon cancer. Course Vital Signs 03/04/21 03/04/21 03/04/21 01:30 02:15 02:30 Temperature 98.7 F 98.0 F Pulse Rate 71 64 63 Respiratory 18 18 18 Rate Blood Pressure 144/81 117/54 126/60 O2 Sat by Pulse 95 94 L 95 Oximetry 03/04/21 03/04/21 03/04/21 02:46 03:00 03:15 Temperature Pulse Rate 62 64 60 Respiratory 18 18 18 Rate Blood Pressure 116/61 129/66 116/61 O2 Sat by Pulse 94 L 96 95 Oximetry 03/04/21 03/04/21 03/04/21 03:30 04:00 05:00 Temperature 98.7 F Pulse Rate 61 60 60 Respiratory 18 18 18 Rate Blood Pressure 109/65 98/64 141/74 O2 Sat by Pulse 95 96 Oximetry 03/04/21 03/04/21 03/04/21 06:00 07:05 07:34 Temperature Pulse Rate 60 60 59 L Respiratory 16 16 18 Rate Blood Pressure 99/54 93/49 135/87 O2 Sat by Pulse 95 95 97 Oximetry 03/04/21 03/04/21 09:54 12:06 Temperature Pulse Rate 57 L 60 Respiratory 18 18 Rate Blood Pressure 123/74 113/97 O2 Sat by Pulse 95 98 Oximetry Critical Care Time Critical Care Time: Yes (30 minutes) Disposition Clinical Impression: Facial droop, Elevated troponin I level Narrative: TIA versus acute ischemic stroke. Disposition: ADMITTED IP TO THIS HOSP Condition: Fair
[2021-03-04] MEDS ORDERED: FAMOTIDINE 20 MG TAB PO SCH (09:00)
[2021-03-04] MEDS ORDERED: Potassium Replacement Protocol 1 EACH MISC MISCELLANE PRN (09:33)
[2021-03-04 10:03] LABS: Magnesium 2.1 mg/dL (1.6-2.3)
--- NOTE | 2021-03-04 10:39 | P.CRDCN ---
History of Present Illness History of present illness: HISTORY OF PRESENTING ILLNESS This is a pleasant 70-year-old female past medical history significant for hypertension, colon cancer status post resection, GI bleeding in the past a nd gastroesophageal reflux disease. She quit smoking in 2016. She follows in the office with Dr. Key. We have been asked to see in consultation for elevated troponin. She presented to the hospital with symptoms of double vision. The patient states the symptoms started last evening. This is not the first time that she has experienced this. She does recall having an episode also in January. These symptoms are transient and typically last only for less than 10 seconds. She states that she blinks her eyes multiple times that it does subside. However according to the ER documentation her was with her at the time and stated that she also had a mild facial droop on the left. At the time of my exam she is seen and examined sitting up in bed in no acute distress. She states that her double vision has subsided. When she smiles she does have equal movement of her facial muscles however she is keeping her right eye squinted closed. She denies any symptoms of chest discomfort, shortness of breath or palpitations. She states at one time she does recall having had some palpitations and was referred to see Dr. Jacobson and evaluation. At that time, September and October 2020, she underwent a dobutamine stress echocardiogram that was negative for stress-induced ischemia, an echocardiogram revealing preserved LV systolic function with ejection fraction 65% with mild mitral regurgitation and a calcified aortic valve and a 24-hour Holter monitor that revealed only one episode of sinus tachycardia with no significant arrhythmia otherwise. DIAGNOSTICS EKG reveals sinus mechanism with LVH, ST changes in the lateral leads as well as T wave abnormalities anteriorly. Consistent with previous EKGs dating back to 2017. Chest xray negative for an acute cardiopulmonary process. CT of the brain reveals cerebral atrophy and chronic small vessel ischemia with no acute process. CT angiogram reveals atherosclerotic vascular disease of the carotid artery bifurcation with no hemodynamic stenosis. Moderate there was calcification of intracranial internal carotid arteries without hemodynamically significant stenosis. Laboratory reviewed, CBC unremarkable, sodium 142, potassium 2.6, creatinine 1.21, troponin 0.115 and 0.115. Current cardiac medications include felodipine 5 mg daily. REVIEW OF SYSTEMS At the time of my exam: CONSTITUTIONAL: Denies fever or chills. CARDIOVASCULAR: Denies chest pain, shortness of breath, orthopnea, PND or palpitations. RESPIRATORY: Denies cough. GASTROINTESTINAL: Denies abdominal pain, diarrhea, constipation, nausea or vomiting. MUSCULOSKELETAL: Denies myalgias. NEUROLOGIC: Denies numbness, tingling, headache or weakness. ENDOCRINE: Denies fatigue, weight change, polydipsia or polyurina. GENITOURINARY: Denies burning, hematuria or urgency with micturation. HEMATOLOGIC: Denies history of anemia or bleeding. PHYSICAL EXAMINATION Blood pressure 135/87 heart rate 59 afebrile and maintaining oxygen saturation on nasal cannula. CONSTITUTIONAL: No apparent distress. HEENT: Head is normocephalic. Pupils are equal, round. Sclerae anicteric. Mucous membranes of the mouth are moist. No JVD. No carotid bruit. CHEST EXAMINATION: Lungs are clear to auscultation. No chest wall tenderness is noted on palpation or with deep breathing. HEART EXAMINATION: Regular rate and rhythm. S1, S2 heard. No murmurs, gallops or rub. ABDOMEN: Soft, nontender. EXTREMITIES: 2+ peripheral pulses, no lower extremity edema and no calf tenderness. NEUROLOGIC EXAMINATION: Patient is awake, alert and oriented x3. ASSESSMENT Diplopia Hypokalemia, significant Elevated troponin of unclear significance, flat not suggestive of acute coronary syndrome Hypertension History of colon cancer status post resection PLAN Replace potassium per protocol. Check magnesium and TSH. Await neurology evaluation. Obtain 2D echocardiogram and doppler study with bubble study. Repeat EKG, BMP and magnesium in the morning. Further recommendations to follow based on clinical course. Thank you kindly for this consultation. Nurse Practitioner note has been reviewed, I agree with a documented findings and plan of care. Patient was seen and examined. Past Medical History Past Medical History: Cancer, GERD/Reflux, GI Bleed, Hypertension, Musculoskeletal Disorder Additional Past Medical History / Comment(s): colon cancer 2016-had surg. & chemo, sciatica History of Any Multi-Drug Resistant Organisms: None Reported Past Surgical History: Bowel Resection, Cholecystectomy, Orthopedic Surgery, Tonsillectomy Additional Past Surgical History / Comment(s): right wrist surgery post fracture, robotic colectomy Past Anesthesia/Blood Transfusion Reactions: No Reported Reaction Past Psychological History: Anxiety Smoking Status: Former smoker Past Alcohol Use History: Occasional Past Drug Use History: None Reported - Past Family History Mother Family Medical History: Cancer Additional Family Medical History / Comment(s): Bladder cancer. Sister(s) Family Medical History: Cancer Additional Family Medical History / Comment(s): Colon cancer. Medications and Allergies Home Medications Medication Instructions Recorded Confirmed Type ALPRAZolam [Xanax] 0.5 mg PO BID PRN 03/04/21 03/04/21 History ARIPiprazole [Abilify] 5 mg PO Q48H 03/04/21 03/04/21 History Felodipine ER [Plendil] 5 mg PO DAILY 03/04/21 03/04/21 History Fluticasone/Umeclidin/Vilanter 1 tab PO DAILY 03/04/21 03/04/21 History [Trelegy Ellipta 100-62.5-25] Melatonin 10 mg PO HS PRN 03/04/21 03/04/21 History PARoxetine HCL 40 mg PO DAILY 03/04/21 03/04/21 History Tolterodine ER [Detrol LA] 4 mg PO DAILY 03/04/21 03/04/21 History Vits A,C,E/Lutein/Minerals 1 tab PO DAILY 03/04/21 03/04/21 History [Ocuvite with Lutein Tablet] Allergies Allergy/AdvReac Type Severity Reaction Status Date / Time benazepril Allergy Swelling Verified 03/04/21 08:16 Penicillins Allergy Swelling Verified 03/04/21 08:16 sertraline [From Zoloft] Allergy Swelling Verified 03/04/21 08:16 Sulfa (Sulfonamide Allergy Swelling Verified 03/04/21 08:16 Antibiotics) Physical Exam Vitals: Vital Signs Temp Pulse Resp BP Pulse Ox 03/04/21 07:34 59 L 18 135/87 97 03/04/21 07:05 60 16 93/49 95 03/04/21 06:00 60 16 99/54 95 03/04/21 05:00 60 18 141/74 03/04/21 04:00 98.7 F 60 18 98/64 96 03/04/21 03:30 61 18 109/65 95 03/04/21 03:15 60 18 116/61 95 03/04/21 03:00 64 18 129/66 96 03/04/21 02:46 62 18 116/61 94 L 03/04/21 02:30 63 18 126/60 95 03/04/21 02:15 98.0 F 64 18 117/54 94 L 03/04/21 01:30 98.7 F 71 18 144/81 95 Intake and Output 03/03/21 03/04/21 03/04/21 22:59 06:59 14:59 Other: Weight 74.389 kg Results 03/04/21 02:22 03/04/21 09:23 Cardiac Enzymes 03/04/21 03/04/21 03/04/21 Range/Units 02:22 02:22 05:31 AST 22 (14-36) U/L Troponin I 0.115 H* 0.115 H* (0.000-0.034) ng/mL Coagulation 03/04/21 Range/Units 02:22 PT 10.3 (9.0-12.0) sec APTT 22.2 (22.0-30.0) sec CBC 03/04/21 Range/Units 02:22 WBC 9.3 (3.8-10.6) k/uL RBC 4.52 (3.80-5.40) m/uL Hgb 13.5 (11.4-16.0) gm/dL Hct 40.4 (34.0-46.0) % Plt Count 347 (150-450) k/uL Comprehensive Metabolic Panel 03/04/21 Range/Units 02:22 Sodium 142 (137-145) mmol/L Potassium 2.6 L* (3.5-5.1) mmol/L Chloride 111 H (98-107) mmol/L Carbon Dioxide 20 L (22-30) mmol/L BUN 25 H (7-17) mg/dL Creatinine 1.21 H (0.52-1.04) mg/dL Glucose 122 H (74-99) mg/dL Calcium 9.7 (8.4-10.2) mg/dL AST 22 (14-36) U/L ALT 12 (4-34) U/L Alkaline Phosphatase 96 (38-126) U/L Total Protein 6.3 (6.3-8.2) g/dL Albumin 3.7 (3.5-5.0) g/dL Current Medications Generic Name Dose Route Start Last Admin Trade Name Freq PRN Reason Stop Dose Admin Aspirin 325 mg 03/05/21 09:00 Aspirin 325 Mg Tab PO DAILY MELINA Famotidine 20 mg 03/04/21 09:00 Famotidine 20 Mg Tab PO BID MELINA Sodium Chloride 1,000 mls @ 130 mls/hr 03/04/21 04:03 03/04/21 04:10 Saline 0.9% IV 03/04/21 11:44 130 mls/hr .[id number] STA Administration Intake and Output 03/03/21 03/04/21 03/04/21 22:59 06:59 14:59 Other: Weight 74.389 kg 03/04/21 02:22 03/04/21 02:22
[2021-03-04] MEDS ORDERED: ALPRAZolam 0.5 MG TAB PO PRN (10:44)
[2021-03-04] MEDS ORDERED: PARoxetine 20 MG TAB PO SCH (11:00)
[2021-03-04] MEDS ORDERED: MELATONIN 5 MG TABLET PO PRN (11:31)
[2021-03-04] MEDS ORDERED: TOLTERODINE 4 MG PO SCH (11:45)
[2021-03-04] MEDS ORDERED: amLODIPine 5 MG TAB PO SCH (11:45)
[2021-03-04] MEDS ORDERED: NON FORMULARY DRUG (Fluticasone/Umeclidin/Vilanter [Trelegy Ellipta 100-62.5-25] 1 EACH Ea PO SCH (11:45)
[2021-03-04] MEDS: VIT A,C & E-LUTEIN-MINERALS 1 EACH TAB PO SCH (12:03)
[2021-03-04] MEDS: PARoxetine 20 MG TAB PO SCH (12:04)
[2021-03-04] MEDS: OXYBUTYNIN 10 MG TAB.ER.24 PO SCH (12:04)
[2021-03-04] MEDS: IPRATROPIUM 0.5 MG/2.5 ML NEBU INHALATION SCH ×3 (12:59→21:50)
[2021-03-04] MEDS: POTASSIUM CHLORIDE 20 MEQ in WATER FOR INJECTION 1 100ML.BAG IVPB SCH ×3 (13:26→20:42)
--- NOTE | 2021-03-04 17:03 | ECHOF ---
Referral Reason:bubble study as well MEASUREMENTS -------- HEIGHT: 165.1 cm WEIGHT: 72.6 kg BP: IVSd: 1.2 cm (0.6 - 1.1) LVIDd: 4.3 cm (3.9 - 5.3) LVPWd: 1.4 cm (0.6 - 1.1) IVSs: 1.4 cm LVIDs: 1.5 cm LVPWs: 2.1 cm LAESV Index (A-L): 35.74 ml/m Ao Diam: 3.6 cm (2.0 - 3.7) AV Cusp: 2.1 cm (1.5 - 2.6) LA Diam: 2.9 cm (2.7 - 3.8) MV EXCURSION: 14.924 mm (> 18.000) MV EF SLOPE: 65 mm/s (70 - 150) EPSS: 0.6 cm MV E Abhay: 1.02 m/s MV DecT: 231 ms MV A Abhay: 1.13 m/s MV E/A Ratio: 0.90 AV maxP.83 mmHg AV meanP.45 mmHg RAP: 5.00 mmHg RVSP: 22.92 mmHg FINDINGS -------- This was a technically good study. The left ventricular size is normal. There is moderate concentric left ventricular hypertrophy. O verall left ventricular systolic function is normal with, an EF between 55 - 60 %. Increased LAP Gr robb 2 Diastolic Dysfunction. The right ventricle is normal in size. LA is moderately dilated 34-39 ml/m2 The right atrial size is normal. Contrast study was performed with 2 iv injections of 8 ccs of agitated normal saline, at rest, and wi th cough. Interatrial and interventricular septum intact. Aortic valve is trileaflet and is mildly thickened. There is mild aortic stenosis present. Peak/m [place] gradient across the Aortic Valve is 18.83mmHg / 11.45mmHg. The mitral valve is normal. Mild mitral regurgitation is present. The tricuspid valve appears structurally normal. Mild tricuspid regurgitation present. Right vent ricular systolic pressure is normal at < 35 mmHg. There is no pulmonic regurgitation present. The aortic root size is normal. CONCLUSIONS -------- 1. The left ventricular size is normal. 2. There is moderate concentric left ventricular hypertrophy. 3. Overall left ventricular systolic function is normal with, an EF between 55 - 60 %. 4. Increased LAP Grade 2 Diastolic Dysfunction. 5. LA is moderately dilated 34-39 ml/m2 6. Contrast study was performed with 2 iv injections of 8 ccs of agitated normal saline, at rest, and with cough. 7. Aortic valve is trileaflet and is mildly thickened. 8. There is mild aortic stenosis present. 9. Peak/mean gradient across the Aortic Valve is 18.83mmHg / 11.45mmHg. 10. Mild mitral regurgitation is present. 11. Mild tricuspid regurgitation present. [employer]: Nydia Watson RDCS
--- NOTE | 2021-03-04 17:46 | MR ---
MRI OF THE BRAIN WO History: Acute CVA. COMPARISON: None available. TECHNIQUE: Multiplanar multisequence MR imaging of the brain was obtained without the use of IV cont rast. FINDINGS: There is small focal increased signal in the right periventricular white matter on the DWI sequence, most consistent with T2 shine through. Otherwise no restricted diffusion is noted.No acute intracranial hemorrhage or abnormal extra-axial f luid collection are noted.There is no midline shift or mass effect. There is moderate to marked periv entricular white matter T2 FLAIR hyperintensities. There is mild parenchymal volume loss Visualized v ascular flow voids are unremarkable. Visualized paranasal sinuses and mastoid air cells are patent and aerated. IMPRESSION: No definite evidence to suggest acute infarct or intracranial abnormality. Moderate to marked white matter disease, likely chronic medical vascular ischemic changes. Demyelinat ing disease is not entirely excluded.
--- NOTE | 2021-03-04 18:38 | P.HPIM ---
History of Present Illness H&P Date: 03/04/21 Chief Complaint: Double vision History presenting complaint: This is a pleasant 70-year-old patient, Dr. Ty. Chronic stable medical conditions include GERD, hypertension, colon cancer, seizure, sciatica, COPD. Yesterday specifically at 7 PM she noticed that she was having double vision. She found that she was making it difficult to walk. And she did fall. also noticed some left-sided facial droop. Time to go to the ER double vision had somewhat improved. Still present. Denies any change in speech or swallowing. No weakness of the extremities. No headache. Computed tomography scan of the brain the ER was unremarkable. She still has some double vision. Review of systems: GEN.: None EYES: None HEENT: None NECK: None RESPIRATORY: None CARDIOVASCULAR: None GASTROINTESTINAL: None GENITOURINARY: None MUSCULOSKELETAL: None LYMPHATICS: None HEMATOLOGICAL: None PSYCHIATRY: None NEUROLOGICAL: As above Past medical history to include: Colon cancer treated with chemotherapy and surgery in 2016, sciatica, essential hypertension, GERD, COPD Social history: . Smoked less than a pack a day for 45 years stopped in 2017. Alkaline occasionally. Family history: Bladder cancer Physical examination: VITAL SIGNS: 98.7, 71, 18, 1 44 x 81, 95% room air GENERAL: BMI 28.2, laying in bed, awake. EYES: Pupils equal. Conjunctiva normal. HEENT: External appearance of nose and ears normal, oral cavity grossly normal. NECK: JVD not raised; masses not palpable. HEART: First and second heart sounds are normal; no edema. LUNGS: Respiratory rate normal; decreased breath sounds. ABDOMEN: Soft, nontender, liver spleen not palpable, no masses palpable. PSYCH: Alert and oriented x3; mood and affect normal. MUSCULAR skeletal: Evidence of OA NEUROLOGICAL: Cranial nerves grossly intact; no facial asymmetry, power and sensation grossly intact. LYMPHATICS: No lymph nodes palpable in the axilla and neck INVESTIGATIONS, reviewed in the clinical context: White count 9.3 hemoglobin 13.5 platelets 347 potassium 2.6 BUN 25 creatinine 1.21 glucose 122 Troponin I 0.115, 0.115, 0.104 TSH 0.984 EKG tracing personally reviewed by me-normal sinus rhythm, LVH findings Computed tomography scan of the brain without contrast: Cerebral atrophy. Chronic small vessel ischemia. CT angiography head and neck: Atherosclerotic vascular disease in the carotid artery bifurcations without evidence of significant stenosis Chest x-ray film personally reviewed by me-chronic changes 2-D echocardiogram: Moderate concentric LVH, EF 55-60% Assessment and plan: -This patient uses acute diplopia, along with noticing some facial drooping on the left side. Which is that not prominent currently. Diplopia is present. Clinically acute stroke. MRI has been ordered. Neuro checks. Neurology consultation. -COPD in a current smoker Symbicort 80/4.52 puffs twice a day. Atrovent 0.5 nebulizer 4 times a day -Primary osteoarthritis Pain medications as needed -Chronic urinary stress incontinence Detrol LA 4 mg daily -Anxiety depression not otherwise specified Xanax 0.5 mg twice a day when necessary, Paxil 40 mg daily -Essential hypertension Plendil ER 5 mg daily -Troponin's positive. No clinical evidence of ACS. Likely from a central cause. 2-D echo showed no wall motion abnormality. Cardiology consulted Patient is started on aspirin. Lipitor. Home medications resumed. Neuro checks. Neurology consultation. MRI pending. Lovenox for DVT prophylaxis Past Medical History Past Medical History: Cancer, GERD/Reflux, GI Bleed, Hypertension, Musculoskeletal Disorder Additional Past Medical History / Comment(s): colon cancer 2016-had surg. & chemo, sciatica History of Any Multi-Drug Resistant Organisms: None Reported Past Surgical History: Bowel Resection, Cholecystectomy, Orthopedic Surgery, Tonsillectomy Additional Past Surgical History / Comment(s): right wrist surgery post fracture, robotic colectomy Past Anesthesia/Blood Transfusion Reactions: No Reported Reaction Past Psychological History: Anxiety Smoking Status: Former smoker Past Alcohol Use History: Occasional Past Drug Use History: None Reported - Past Family History Mother Family Medical History: Cancer Additional Family Medical History / Comment(s): Bladder cancer. Sister(s) Family Medical History: Cancer Additional Family Medical History / Comment(s): Colon cancer. Medications and Allergies Home Medications Medication Instructions Recorded Confirmed Type ALPRAZolam [Xanax] 0.5 mg PO BID PRN 03/04/21 03/04/21 History ARIPiprazole [Abilify] 5 mg PO Q48H 03/04/21 03/04/21 History Felodipine ER [Plendil] 5 mg PO DAILY 03/04/21 03/04/21 History Fluticasone/Umeclidin/Vilanter 1 tab PO DAILY 03/04/21 03/04/21 History [Trelegy Ellipta 100-62.5-25] Melatonin 10 mg PO HS PRN 03/04/21 03/04/21 History PARoxetine HCL 40 mg PO DAILY 03/04/21 03/04/21 History Tolterodine ER [Detrol LA] 4 mg PO DAILY 03/04/21 03/04/21 History Vits A,C,E/Lutein/Minerals 1 tab PO DAILY 03/04/21 03/04/21 History [Ocuvite with Lutein Tablet] Allergies Allergy/AdvReac Type Severity Reaction Status Date / Time benazepril Allergy Swelling Verified 03/04/21 08:16 Penicillins Allergy Swelling Verified 03/04/21 08:16 sertraline [From Zoloft] Allergy Swelling Verified 03/04/21 08:16 Sulfa (Sulfonamide Allergy Swelling Verified 03/04/21 08:16 Antibiotics) Physical Exam Vitals: Vital Signs Temp Pulse Resp BP Pulse Ox 03/04/21 09:54 57 L 18 123/74 95 03/04/21 07:34 59 L 18 135/87 97 03/04/21 07:05 60 16 93/49 95 03/04/21 06:00 60 16 99/54 95 03/04/21 05:00 60 18 141/74 03/04/21 04:00 98.7 F 60 18 98/64 96 03/04/21 03:30 61 18 109/65 95 03/04/21 03:15 60 18 116/61 95 03/04/21 03:00 64 18 129/66 96 03/04/21 02:46 62 18 116/61 94 L 03/04/21 02:30 63 18 126/60 95 03/04/21 02:15 98.0 F 64 18 117/54 94 L 03/04/21 01:30 98.7 F 71 18 144/81 95 Intake and Output 03/03/21 03/04/21 03/04/21 22:59 06:59 14:59 Other: Weight 74.389 kg Results CBC & Chem 7: 03/04/21 02:22 03/04/21 12:12 Labs: Abnormal Lab Results - Last 24 Hours (Table) 03/04/21 03/04/21 03/04/21 Range/Units 02:21 02:22 02:22 Lymphocytes # 0.9 L (1.0-4.8) k/uL Potassium 2.6 L* (3.5-5.1) mmol/L Chloride 111 H (98-107) mmol/L Carbon Dioxide 20 L (22-30) mmol/L BUN 25 H (7-17) mg/dL Creatinine 1.21 H (0.52-1.04) mg/dL Glucose 122 H (74-99) mg/dL POC Glucose (mg/dL) 117 H (75-99) mg/dL Troponin I (0.000-0.034) ng/mL 03/04/21 03/04/21 03/04/21 Range/Units 02:22 05:31 09:23 Lymphocytes # (1.0-4.8) k/uL Potassium (3.5-5.1) mmol/L Chloride (98-107) mmol/L Carbon Dioxide (22-30) mmol/L BUN (7-17) mg/dL Creatinine (0.52-1.04) mg/dL Glucose (74-99) mg/dL POC Glucose (mg/dL) (75-99) mg/dL Troponin I 0.115 H* 0.115 H* 0.104 H* (0.000-0.034) ng/mL 03/04/21 Range/Units 09:23 Lymphocytes # (1.0-4.8) k/uL Potassium 3.0 L (3.5-5.1) mmol/L Chloride (98-107) mmol/L Carbon Dioxide (22-30) mmol/L BUN (7-17) mg/dL Creatinine (0.52-1.04) mg/dL Glucose (74-99) mg/dL POC Glucose (mg/dL) (75-99) mg/dL Troponin I (0.000-0.034) ng/mL
--- NOTE | 2021-03-04 18:50 | P.CNNES ---
History of Present Illness Consult date: 03/04/21 Requesting physician: Smith Roper Reason for Consult: Acute ischemic stroke versus TIA History of Present Illness: Patient is a 70-year-old female with past medical history of hypertension, colon cancer status post resection, GI bleeding in the past, GERD came to the hospital by ambulance early this morning at 1:29 AM for some disorientation and blurred/double vision. As per EMS flow sheet, when they arrived, found patient laying in the bed in no acute distress. Patient was alert and oriented 4. Patient states that she feels disoriented. The symptoms began at 7 PM when she was attempting to do the laundry. She developed blurred/double vision causing her to lose balance and fall. Denies any injury from the fall. Patient does not take any blood thinners. Patient was noted to be leaning to the left while walking/sitting. Patient was very unsteady on her feet. This is a new finding per patient. Patient's vitals at the scene was blood pressure 130/99, pulse rate 82, respiration 16 saturation 95% blood sugar 142. Vital signs on arrival blood pressure 144/81, pulse rate 71, temperature 98.7. Blood test shows normal CBC, PT/PTT, sodium 142 potassium 2.6 BUN 25, creatinine 1.21. Hepatic panel is normal. Troponin is mildly elevated 0.115. TSH is normal. CT head showed cerebral atrophy. Chronic small vessel ischemia. No change compared to old exam. Paranasal sinuses and external auditory canals are clear on my review. CTA of head and neck showed atherosclerotic vascular disease at the carotid artery bifurcations without evidence of hemodynamic stenosis. Moderate atheromatous calcification of the wall of the intracranial internal carotid arteries. No hemodynamic stenosis. EKG shows sinus rhythm with marked sinus arrhythmia. Left-ventricular hypertrophy. Chest x-ray showed no active cardiopulmonary disease. At this time patient tells me that at 7:05 PM last night, she had finished eating, was watching TV when she noticed diplopia. This has happened in the past and she felt it was the same and will go away. She also felt disoriented, "don't feel normal", felt dizzy, as she couldn't walk across the room as she wanted. She tried to go to the bathroom, and fell into her chair, and noticed she had no control. As the double vision persisted along with some dizziness, she decided to come to the ER. She has been having these episodes of diplopia off and on since August 2019. Patient states that the first time diplopia occurred was in August 2019, when she was driving the car when she felt diplopia with seeing multiple lights. She pulled over to the shoulder, everything settled down and she was fine. The next episode did not happen until many months after. Again it was short lasting. She states that these episodes are getting more frequent and worse with time. Initially it used to last for about 3-5 seconds but now they're more prolonged. She could not tell how many such episode she had since August 2019, but had multiple. The double vision she gets is in vertical orientation. The bottom image is fake. She remembers having 1 episode on 02/20/2021, when she was riding in the back seat, when she wanted to get out of the car and felt dizzy. She sat there for 1-2 minutes and felt funny. Again it resolved. Patient has hypertension, denies diabetes. She has smoked half to 1 pack per day from age 18, when she quit at age 66. Denies any alcohol or drugs. Patient has history of colon cancer, status surgery and chemotherapy. Review of Systems Patient denies any numbness, tingling, focal weakness, dysphagia, slurred speech. Denies any chest pain, shortness of breath, wheezing or cough. Denies any abdominal pain, nausea vomiting diarrhea. She does get dizzy. Denies any rash. No fever or chills. Patient states that sometimes she feels crackles in the right ear. Denies any incontinence. No dysuria. Patient has some arthritis. All other review of systems reviewed and noncontributory. Past Medical History Past Medical History: Cancer, GERD/Reflux, GI Bleed, Hypertension, Musculoskeletal Disorder Additional Past Medical History / Comment(s): colon cancer 2016-had surg. & chemo, sciatica History of Any Multi-Drug Resistant Organisms: None Reported Past Surgical History: Bowel Resection, Cholecystectomy, Orthopedic Surgery, Tonsillectomy Additional Past Surgical History / Comment(s): right wrist surgery post fracture, robotic colectomy Past Anesthesia/Blood Transfusion Reactions: No Reported Reaction Past Psychological History: Anxiety Smoking Status: Former smoker Past Alcohol Use History: Occasional Past Drug Use History: None Reported - Past Family History Mother Family Medical History: Cancer Additional Family Medical History / Comment(s): Bladder cancer. Sister(s) Family Medical History: Cancer Additional Family Medical History / Comment(s): Colon cancer. Medications and Allergies Home Medications Medication Instructions Recorded Confirmed Type ALPRAZolam [Xanax] 0.5 mg PO BID PRN 03/04/21 03/04/21 History ARIPiprazole [Abilify] 5 mg PO Q48H 03/04/21 03/04/21 History Felodipine ER [Plendil] 5 mg PO DAILY 03/04/21 03/04/21 History Fluticasone/Umeclidin/Vilanter 1 tab PO DAILY 03/04/21 03/04/21 History [Trelegy Ellipta 100-62.5-25] Melatonin 10 mg PO HS PRN 03/04/21 03/04/21 History PARoxetine HCL 40 mg PO DAILY 03/04/21 03/04/21 History Tolterodine ER [Detrol LA] 4 mg PO DAILY 03/04/21 03/04/21 History Vits A,C,E/Lutein/Minerals 1 tab PO DAILY 03/04/21 03/04/21 History [Ocuvite with Lutein Tablet] Allergies Allergy/AdvReac Type Severity Reaction Status Date / Time benazepril Allergy Swelling Verified 03/04/21 08:16 Penicillins Allergy Swelling Verified 03/04/21 08:16 sertraline [From Zoloft] Allergy Swelling Verified 03/04/21 08:16 Sulfa (Sulfonamide Allergy Swelling Verified 03/04/21 08:16 Antibiotics) Physical Examination - Vital Signs Vital Signs: Vital Signs Temp Pulse Resp BP Pulse Ox 03/04/21 09:54 57 L 18 123/74 95 03/04/21 07:34 59 L 18 135/87 97 03/04/21 07:05 60 16 93/49 95 03/04/21 06:00 60 16 99/54 95 03/04/21 05:00 60 18 141/74 03/04/21 04:00 98.7 F 60 18 98/64 96 03/04/21 03:30 61 18 109/65 95 03/04/21 03:15 60 18 116/61 95 03/04/21 03:00 64 18 129/66 96 03/04/21 02:46 62 18 116/61 94 L 03/04/21 02:30 63 18 126/60 95 03/04/21 02:15 98.0 F 64 18 117/54 94 L 03/04/21 01:30 98.7 F 71 18 144/81 95 Intake and Output 03/03/21 03/04/21 03/04/21 22:59 06:59 14:59 Other: Weight 74.389 kg Patient is an elderly female, in no acute distress. Patient is alert awake oriented to time place and person. Speech and language functions are normal. Attention, concentration and fund of knowledge is adequate. No aphasia or dysarthria. On cranial examination, pupils are round and reacting to light, visual wray are full on confrontation, with no neglect on double simultaneous stimulation. Her extraocular muscles revealed diplopia looking to the right. With her gaze towards the right, her right eye slightly depresses. Patient has significant diplopia looking to the right, mildly in the primary gaze, but goes away towards the left-sided gaze. No nystagmus. No ptosis. Face is symmetric, tongue protrudes to the midline. Palatal elevation and sensation normal, hearing and shoulder shrug normal, facial sensation normal. On muscle strength testing, there is no pronator drift and the strength is normal in arms and legs distally and proximally. Deep tendon reflexes are symmetric 2+ to 3, and plantars downgoing. No clonus. Sensory to touch is equal with no neglect on double simultaneous stimulation. Cerebellar function showed mild dysmetria for [id number] on the left, but not on the right. No ataxia in the lower extremities for [id number] testing. Tone and bulk of muscles normal. Gait deferred. However prior PT report, patient had some problems with visual spatial orientation on the left. On general examination, there is no carotid bruit or murmur, S1-S2 audible. Abdomen is soft nontender. Chest is clear. Peripheral pulses are present. No edema. Results - Laboratory Findings CBC and BMP: 03/04/21 02:22 03/05/21 09:07 Abnormal Lab Findings: Abnormal Labs 03/04/21 03/04/21 03/04/21 02:21 02:22 02:22 Lymphocytes # 0.9 L Potassium 2.6 L* Chloride 111 H Carbon Dioxide 20 L BUN 25 H Creatinine 1.21 H Glucose 122 H POC Glucose (mg/dL) 117 H Troponin I 03/04/21 03/04/21 03/04/21 02:22 05:31 09:23 Lymphocytes # Potassium 3.0 L Chloride Carbon Dioxide BUN Creatinine Glucose POC Glucose (mg/dL) Troponin I 0.115 H* 0.115 H* Assessment and Plan Assessment: * 70-year-old female with intermittent brief episodes of vertical diplopia and vertigo since August 2019, has now presented with persistent diplopia, vertigo and gait imbalance. Examination reveals some possible extraocular muscles weakness towards the right with diplopia but no nystagmus. Also has very minimal dysmetria for [id number] on the left. Rule out CVA. Rule out vestibular neuronitis, rule out myasthenia gravis, which appears less likely. * Hypertension * X tobacco use * History of colon cancer, currently in remission. Plan: * Patient will undergo a stat MRI of the brain to rule out CVA. * 2-D echo revealed normal left ventricular size. Moderate concentric LVH. Left ventricle systolic function is normal with EF between 55-60%. Left atrium is moderately dilated. Interatrial and interventricular septum intact. No shunt noted with bubble study. Aortic valve is trileaflet and is mildly thickened. Mild aortic stenosis. * Cardiology following for abnormal troponin. * Aspirin 81 mg daily. No indication for dual antiplatelet, as patient has history of GI bleed, and low threshold for CVA. * CTA of head and neck showed atherosclerotic vascular disease at the carotid artery bifurcations without evidence of hemodynamic stenosis. Moderate atheromatous calcification of the wall of the intracranial internal carotid arteries. No hemodynamic stenosis. * Hemoglobin A1c, lipid panel, acetylcholine receptor antibodies, Lyme titer, angiotensin converting enzyme level, ESR. TSH is normal 0.984. * Ophthalmology consultation for diplopia. * Neurology will follow. Time with Patient: Greater than 30
[2021-03-04] MEDS: ENOXAPARIN 40 MG/0.4 ML SYRINGE SQ SCH (19:38)
[2021-03-04] MEDS ORDERED: MELATONIN 5 MG TABLET PO SCH (21:00)
[2021-03-04 21:33] LABS: Chol/HDL Ratio 3.14; LDL Cholesterol,Calculated 82.2 mg/dL (0.0-131.0); VLDL Calculation 24.8 mg/dL (5.00-40.00)
[2021-03-04] MEDS: SYMBICORT 80-4.5 MCG INHALER INHALATION SCH (21:50)
[2021-03-05] MEDS ORDERED: SUCCINYLCHOLINE CHLORIDE VIAL 200 MG/10 ML VIAL IV ONE (06:57)
[2021-03-05] MEDS: IPRATROPIUM 0.5 MG/2.5 ML NEBU INHALATION SCH ×4 (07:46→21:17)
[2021-03-05] MEDS: SYMBICORT 80-4.5 MCG INHALER INHALATION SCH ×2 (07:47→21:17)
[2021-03-05] MEDS: ASPIRIN 81 MG PO SCH (08:43)
[2021-03-05] MEDS: amLODIPine 5 MG TAB PO SCH (08:43)
[2021-03-05] MEDS: ATORVASTATIN 40 MG TAB PO SCH (08:43)
[2021-03-05] MEDS: VIT A,C & E-LUTEIN-MINERALS 1 EACH TAB PO SCH (08:44)
[2021-03-05] MEDS: FAMOTIDINE 20 MG TAB PO SCH (08:44)
[2021-03-05] MEDS: PARoxetine 20 MG TAB PO SCH (08:44)
[2021-03-05] MEDS: OXYBUTYNIN 10 MG TAB.ER.24 PO SCH (08:44)
[2021-03-05] MEDS ORDERED: ARIPiprazole 5 MG TAB PO SCH (09:00)
[2021-03-05] MEDS ORDERED: ASPIRIN 325 MG TAB PO SCH (09:00)
[2021-03-05 09:45] LABS: Calcium 9.4 mg/dL (8.4-10.2); Potassium 3.3 mmol/L (3.5-5.1)
--- NOTE | 2021-03-05 10:20 | P.PN ---
Subjective This is a pleasant 70-year-old female past medical history significant for hypertension, colon cancer status post resection, GI bleeding in the past and gastroesophageal reflux disease. She quit smoking in 2017. She follows in the office with Dr. Key. We have been asked to see in consultation for elevated troponin. She presented to the hospital with symptoms of double vision. Patient seen and examined at bedside. No acute distress. She continues to have double vision and diarrhea. Also complaints of a slight headache. Laboratory data reviewed sodium 143, potassium 3.3, P1 21, serum creatinine 1.1, magnesium 2.0, TSH within normal limits. Aldosterone, Renin labs still pending. Neurology following, plan for Ophthalmology consultation for diplopia. DIAGNOSTICS Echocardiogram revealed EF 5560%, grade 2 diastolic dysfunction, mild aortic stenosis with a peak/mean been 18 mmHg/11 mmHg, mild mitral regurgitation EKG 03/05 morning, revealed sinus mechanism, LVH, T wave inversions in lateral and anterior leads. No changes from prior EKGs. MRI of the brain revealed no evidence of acute infarct or intracranial abnormality. Monitoring white matter disease likely chronic microvascular ischemic changes. September and October 2020, she underwent a dobutamine stress echocardiogram that was negative for stress-induced ischemia, an echocardiogram revealing preserved LV systolic function with ejection fraction 65% with mild mitral regurgitation and a calcified aortic valve and a 24-hour Holter monitor that revealed only one episode of sinus tachycardia with no significant arrhythmia otherwise. PHYSICAL EXAMINATION Blood pressure 131/62, heart rate 66, afebrile, maintaining oxygen saturations on 2L nasal cannula 90% on room air. CONSTITUTIONAL: No apparent distress. HEENT: Neck Supple No JVD. No carotid bruit. CHEST EXAMINATION: Lungs are clear to auscultation. No chest wall tenderness is noted on palpation or with deep breathing. HEART EXAMINATION: Regular rate and rhythm. S1, S2 heard. No murmurs, gallops or rub. ABDOMEN: Soft, nontender. EXTREMITIES: 2+ peripheral pulses, no lower extremity edema and no calf te nderness. NEUROLOGIC EXAMINATION: Patient is awake, alert and oriented x3. ASSESSMENT Diplopia Hypokalemia, significant Elevated troponin of unclear significance, flat not suggestive of acute coronary syndrome Hypertension History of colon cancer status post resection Acute Kidney Injury PLAN Replace potassium per protocol. Continue to monitor renal function and electrolytes Continue aspirin, statin Neurology following Further recommendations to follow based on clinical course Nurse Practitioner note has been reviewed, I agree with a documented findings and plan of care. Patient was seen and examined. Objective - Vital Signs Vital signs: Vital Signs Temp 98.4 F 03/05/21 08:00 Pulse 66 03/05/21 08:00 Resp 20 03/05/21 08:00 BP 131/62 03/05/21 08:00 Pulse Ox 90 L 03/05/21 08:00 Intake & Output 03/04/21 03/05/21 03/05/21 18:59 06:59 18:59 Intake Total 120 Balance 120 Weight 74.389 kg 88.6 kg Intake: Oral 120 Other: Voiding Method Toilet # Voids 1 1 # Bowel Movements 1 1 - Labs CBC & Chem 7: 03/04/21 02:22 03/05/21 09:07 Labs: Abnormal Lab Results - Last 24 Hours (Table) 03/04/21 03/04/21 03/04/21 Range/Units 09:23 09:23 12:12 Potassium 3.0 L 3.2 L (3.5-5.1) mmol/L Troponin I 0.104 H* (0.000-0.034) ng/mL
[2021-03-05] MEDS ORDERED: POTASSIUM CHLORIDE ER 20 MEQ TAB.ER PO SCH (11:00)
[2021-03-05] MEDS: ENOXAPARIN 40 MG/0.4 ML SYRINGE SQ SCH (11:18)
[2021-03-05] MEDS: POTASSIUM CHLORIDE ER 20 MEQ TAB.ER PO SCH (12:32)
[2021-03-05] MEDS: CLOPIDOGREL 75 MG TAB PO SCH (15:04)
--- NOTE | 2021-03-05 22:29 | P.PN ---
Subjective Progress Note Date: 03/05/21 Patient was seen for a follow-up. Patient states she is feeling better. Denies any new focal symptoms. Her diplopia has improved. No numbness tingling or focal weakness. Telemetry monitoring showing sinus rhythm, sinus bradycardia in 50s to 60s. Objective - Vital Signs Vital signs: Vital Signs Temp 97.8 F 03/05/21 12:00 Pulse 68 03/05/21 14:00 Resp 20 03/05/21 14:00 BP 144/74 03/05/21 12:00 Pulse Ox 92 L 03/05/21 12:00 Intake & Output 03/04/21 03/05/21 03/05/21 18:59 06:59 18:59 Intake Total 240 Balance 240 Weight 74.389 kg 88.6 kg Intake: Oral 240 Other: Voiding Method Toilet Toilet # Voids 1 1 # Bowel Movements 1 1 - Exam Patient's mental status, speech and language functions are normal. No aphasia or dysarthria. Cranial nerves revealed pupils, equal, round and reacting. Visual wray are full. Extraocular muscles appears intact although the right eye slightly deviates down with lateral gaze. Patient did not complain of double vision on either gaze. Face is symmetric. Patient has left ptosis. Tongue protrudes the midline. Facial sensation normal. On muscle strength testing there is no drift and the strength is normal in arms and legs. Cerebellar functions revealed mild ataxia for [id number] on the left. Sensations are equal. When I asked to check gait, patient states "I might fall". Patient states that prior to arrival, she was not using any device. Now she does not feel comfortable without walker. - Labs CBC & Chem 7: 03/04/21 02:22 03/06/21 09:14 Labs: Abnormal Lab Results - Last 24 Hours (Table) 03/05/21 Range/Units 09:07 Potassium 3.3 L (3.5-5.1) mmol/L Chloride 112 H (98-107) mmol/L BUN 21 H (7-17) mg/dL Creatinine 1.13 H (0.52-1.04) mg/dL Glucose 137 H (74-99) mg/dL Assessment and Plan Assessment: * 70-year-old female with intermittent brief episodes of vertical diplopia and vertigo since August 2019, has now presented with persistent diplopia, vertigo and gait imbalance. Examination reveals some possible extraocular muscles weakness towards the right with diplopia but no nystagmus. Also has very minimal dysmetria for [id number] on the left. Rule out CVA. Rule out vestibular neuronitis, rule out myasthenia gravis, which appears less likely. * Hypertension * X tobacco use * History of colon cancer, currently in remission. Plan: * MRI of the brain reported as no definite evidence to suggest acute infarct or intracranial abnormality. However on my review, there is evidence of an acute ischemic infarct involving the right medial thalamic/periaqueductal region consistent with her symptoms of diplopia and imbalance and left-sided ataxia. * 2-D echo revealed normal left ventricular size. Moderate concentric LVH. Left ventricle systolic function is normal with EF between 55-60%. Left atrium is moderately dilated. Interatrial and interventricular septum intact. No shunt noted with bubble study. Aortic valve is trileaflet and is mildly thickened. Mild aortic stenosis. Discussed with PCP about possibility of AMADOR. As patient's TIA were in a single vessel distribution, therefore stroke likely from atherosclerotic cerebrovascular disease. * Cardiology following for abnormal troponin. * Patient to be placed on dual antiplatelet medication at this time because of an acute stroke obvious on MRI. After 3 weeks, may stop Plavix and continue aspirin 81 mg daily. * CTA of head and neck showed atherosclerotic vascular disease at the carotid artery bifurcations without evidence of hemodynamic stenosis. Moderate atheromatous calcification of the wall of the intracranial internal carotid arteries. No hemodynamic stenosis. * Hemoglobin A1c 5.9, lipid panel cholesterol 157, LDL 82.2, HDL 50.0, triglycerides 124. Acetylcholine receptor antibodies <0.30 (negative), Lyme titer negative (0.36), angiotensin converting enzyme level normal 29, ESR normal 5. TSH is normal 0.984. * Ophthalmology consultation for diplopia as outpatient. * Discussed with Dr. Bakari guillory
--- NOTE | 2021-03-05 23:16 | P.PN ---
Progress Note - Text Progress Note Date: 03/05/21 Chief Complaint: Double vision History presenting complaint: This is a pleasant 70-year-old patient, Dr. Ty. Chronic stable medical conditions include GERD, hypertension, colon cancer, seizure, sciatica, COPD. Yesterday specifically at 7 PM she noticed that she was having double vision. She found that she was making it difficult to walk. And she did fall. also noticed some left-sided facial droop. Time to go to the ER double vision had somewhat improved. Still present. Denies any change in speech or swallowing. No weakness of the extremities. No headache. Computed tomography scan of the brain the ER was unremarkable. She still has some double vision. March 05: Patient is still having double vision. While walking tended to fall on the left. Earlier patient has spoken to the social work instructor had declined rehab. I discussed the case with Dr. Campos from neurologist. He looked at the MRI and there was a brainstem lesion explaining patient stroke. I did then discuss with Dr. mckee from radiology. Plavix is being added. Spoke to the piano case maker PTOT and dressed with the patient again about inpatient rehab. Review of systems: Was done for constitutional, cardiovascular, GI, pulmonary. Neurological relevant finding as above Active Medications Alprazolam (Alprazolam 0.5 Mg Tab) 0.5 mg PO BID PRN PRN Reason: Anxiety Amlodipine Besylate (Amlodipine 5 Mg Tab) 5 mg PO DAILY [facility] Last Admin: 03/05/21 08:43 Dose: 5 mg Documented by: Aripiprazole (Aripiprazole 5 Mg Tab) 5 mg PO Q48H [facility] Last Admin: 03/05/21 08:43 Dose: 5 mg Documented by: Aspirin (Aspirin 81 Mg) 81 mg PO DAILY [facility] Last Admin: 03/05/21 08:43 Dose: 81 mg Documented by: Atorvastatin Calcium (Atorvastatin 40 Mg Tab) 40 mg PO DAILY [facility] Last Admin: 03/05/21 08:43 Dose: 40 mg Documented by: Budesonide/Formoterol Fumarate (Symbicort 80-4.5 Mcg Inhaler) 2 puff INHALATION RT-BID [facility] Last Admin: 03/05/21 21:17 Dose: 2 puff Documented by: Clopidogrel Bisulfate (Clopidogrel 75 Mg Tab) 75 mg PO DAILY [facility] Last Admin: 03/05/21 15:04 Dose: 75 mg Documented by: Enoxaparin Sodium (Enoxaparin 40 Mg/0.4 Ml Syringe) 40 mg SQ DAILY [facility] Last Admin: 03/05/21 11:18 Dose: Not Given Documented by: Famotidine (Famotidine 20 Mg Tab) 20 mg PO DAILY [facility] Last Admin: 03/05/21 08:44 Dose: 20 mg Documented by: Ipratropium [place] (Ipratropium 0.5 Mg/2.5 Ml Nebu) 0.5 mg INHALATION RT-QID [facility] Last Admin: 03/05/21 21:17 Dose: 0.5 mg Documented by: Melatonin (Melatonin 5 Mg Tablet) 10 mg PO HS PRN PRN Reason: Insomnia Miscellaneous Information (Potassium Replacement Protocol 1 Each Misc) 1 each MISCELLANE DAILY PRN; Protocol PRN Reason: Per Protocol Multivitamins/Minerals (Vit A,C & L-Eevcsk-Qpylegbv 1 Each Tab) 1 each PO DAILY [facility] Last Admin: 03/05/21 08:44 Dose: 1 each Documented by: Oxybutynin Chloride (Oxybutynin 10 Mg Tab.Er.24) 10 mg PO DAILY [facility] Last Admin: 03/05/21 08:44 Dose: 10 mg Documented by: Paroxetine HCl (Paroxetine 20 Mg Tab) 40 mg PO DAILY [facility] Last Admin: 03/05/21 08:44 Dose: 40 mg Documented by: Past medical history to include: Colon cancer treated with chemotherapy and surgery in 2016, sciatica, essential hypertension, GERD, COPD Social history: . Smoked less than a pack a day for 45 years stopped in 2017. Alkaline occasionally. Family history: Bladder cancer Physical examination: VITAL SIGNS: 98.3, 69, 14, 120/85, 94% room air GENERAL: Sitting up in a chair, comfortable. EYES: Pupils equal. Conjunctiva normal. NECK: JVD not raised; masses not palpable. HEART: First and second heart sounds are normal; no edema. LUNGS: Respiratory rate normal; decreased breath sounds. ABDOMEN: Soft, nontender, liver spleen not palpable, no masses palpable. PSYCH: Alert and oriented x3; mood and affect normal. MUSCULAR skeletal: Evidence of OA NEUROLOGICAL: Still complaining of double vision. Tending to fall on the left side walking. INVESTIGATIONS, reviewed in the clinical context: MRI of the brain: Reviewed by Dr. Campos. Right medial thalamus area.. White count 9.3 hemoglobin 13.5 platelets 347 potassium 2.6 BUN 25 creatinine 1.21 glucose 122 Troponin I 0.115, 0.115, 0.104 TSH 0.984 EKG tracing personally reviewed by me-normal sinus rhythm, LVH findings Computed tomography scan of the brain without contrast: Cerebral atrophy. Chronic small vessel ischemia. CT angiography head and neck: Atherosclerotic vascular disease in the carotid artery bifurcations without evidence of significant stenosis Chest x-ray film personally reviewed by me-chronic changes 2-D echocardiogram: Moderate concentric LVH, EF 55-60% Assessment and plan: -Acute right brain stem/thalamic CVA. Aspirin 81 mg. Add Plavix any 5 mg to 3 weeks. Lipitor. -Acute diplopia from above persists Patient have to see ophthalmology as an outpatient -Acute kidney dysfunction from brainstem stroke. Unsteady and tending to fall on the left. PTOT. [facility] rehab -COPD in a X smoker Symbicort 80/4.52 puffs twice a day. Atrovent 0.5 nebulizer 4 times a day -Primary osteoarthritis Pain medications as needed -Chronic urinary stress incontinence Detrol LA 4 mg daily -Anxiety depression not otherwise specified Xanax 0.5 mg twice a day when necessary, Paxil 40 mg daily -Essential hypertension Plendil ER 5 mg daily -Troponin's positive. No clinical evidence of ACS. Likely from stroke. 2-D echo showed no wall motion abnormality. Cardiology consulted Patient will aspirin, Plavix, Lipitor. Spoke to piano case maker about inpatient Discussed with radiology and Dr. Campos. Total time spent today about 50 minutes with over 25 minutes of discussion. It would not be safe for the patient to go home given the risk of falls. Will need [facility] rehab
[2021-03-06 03:06] VITALS: RESP 16
--- NOTE | 2021-03-06 05:59 | P.CONS ---
History of Present Illness - Chief Complaint Gait disturbance - History of Present Illness I had the opportunity to see patient for inpatient rehab consultation with regard to gait disturbance. Patient admitted to [facility] March 04 with diplopia, vertigo and gait disturbance. Seen by cardiology. Seen by neurology, Dr. WHITE for the stroke. Chest x-ray negative. Head CT with atrophy and chronic change. Angiogram CTA with stenosis 30% left internal carotid and 20% right internal carotid. Brain MRI with moderate to marked white matter change. His started therapies. PT reports supervision for bed mobility and transfers and minimal assistance for gait 120 feet with roller walker and leans to left. OT reports supervision for grooming, minimal assistance for upper and lower dressing and bathing, modified independent with toileting and minimal assistance functional mobility and transfers. Previous functional history as elicited from patient: 70-year-old right-handed white female who is lives in one floor home with . Flight of stairs from house to garage but there is a lift chair, which is there for actually. Both retired. can do the laundry and driving. Patient independent with cooking, laundry, driving, gait without device. PCP Dr. Ty. Denies tobacco has occasional drink. Review of Systems Review of systems: ENT: Denies sneezes or discharge. Eyes: Mild double vision. Cardiac: Denies chest pain or palpitation. Pulmonary: Denies cough or shortness of breath. Breast: Denies discharge or lumps. Gastrointestinal: Denies nausea, emesis, constipation, diarrhea. Genitourinary: Denies discharge or frequency. Musculoskeletal: Denies muscle or bone aches. Neurologic: Patient is aware a leftward lean with standing and walking but did walk in hallways with therapy staff. Endocrine: Denies shakes or sweats. Oncology: Denies cancers. Dermatologic: Denies rash, itching, pruritus. ALLERGY/immunology: Denies sneezes, rashes. Past Medical History Past Medical History: Cancer, GERD/Reflux, GI Bleed, Hypertension, Musculoskeletal Disorder Additional Past Medical History / Comment(s): colon cancer 2016-had surg. & chemo, sciatica History of Any Multi-Drug Resistant Organisms: None Reported Past Surgical History: Bowel Resection, Cholecystectomy, Orthopedic Surgery, Tonsillectomy Additional Past Surgical History / Comment(s): right wrist surgery post fracture, robotic colectomy Past Anesthesia/Blood Transfusion Reactions: No Reported Reaction Past Psychological History: Anxiety Smoking Status: Former smoker Past Alcohol Use History: Occasional Past Drug Use History: None Reported - Past Family History Mother Family Medical History: Cancer Additional Family Medical History / Comment(s): Bladder cancer. Sister(s) Family Medical History: Cancer Additional Family Medical History / Comment(s): Colon cancer. Medications and Allergies Home Medications Medication Instructions Recorded Confirmed Type ALPRAZolam [Xanax] 0.5 mg PO BID PRN 03/04/21 03/04/21 History ARIPiprazole [Abilify] 5 mg PO Q48H 03/04/21 03/04/21 History Felodipine ER [Plendil] 5 mg PO DAILY 03/04/21 03/04/21 History Fluticasone/Umeclidin/Vilanter 1 tab PO DAILY 03/04/21 03/04/21 History [Trelegy Ellipta 100-62.5-25] Melatonin 10 mg PO HS PRN 03/04/21 03/04/21 History PARoxetine HCL 40 mg PO DAILY 03/04/21 03/04/21 History Tolterodine ER [Detrol LA] 4 mg PO DAILY 03/04/21 03/04/21 History Vits A,C,E/Lutein/Minerals 1 tab PO DAILY 03/04/21 03/04/21 History [Ocuvite with Lutein Tablet] Allergies Allergy/AdvReac Type Severity Reaction Status Date / Time benazepril Allergy Swelling Verified 03/04/21 08:16 Penicillins Allergy Swelling Verified 03/04/21 08:16 sertraline [From Zoloft] Allergy Swelling Verified 03/04/21 08:16 Sulfa (Sulfonamide Allergy Swelling Verified 03/04/21 08:16 Antibiotics) Physical Exam Vitals: Vital Signs Temp Pulse Pulse Resp BP BP Pulse Ox 03/06/21 03:06 98.4 F 75 16 149/81 92 L 03/06/21 02:00 14 03/05/21 23:49 97.7 F 64 14 128/63 93 L 03/05/21 21:30 72 03/05/21 21:18 70 03/05/21 20:00 98.3 F 69 14 128/85 94 L 03/05/21 15:34 97.7 F 74 18 157/75 92 L 03/05/21 14:00 68 20 03/05/21 12:00 97.8 F 68 20 144/74 92 L 03/05/21 11:20 74 03/05/21 11:10 73 03/05/21 08:00 98.4 F 68 66 20 131/62 90 L 03/05/21 07:47 66 90 L Intake and Output 03/05/21 03/05/21 03/06/21 14:59 22:59 06:59 Intake Total 240 660 Balance 240 660 Intake: Oral 240 660 Other: Voiding Method Toilet Toilet Toilet # Voids 1 1 2 # Bowel Movements 1 Weight 78.8 kg Skin: Good color, texture, turgor. General: Medium build and comfortable appearance. Head: Normocephalic, atraumatic. Eyes: Symmetric. Pupils equal round. Ears: Symmetric. Hearing within normal limits. Mouth: Clear. Neck: Supple. Carotid without bruit. Cardiac: Regular rate and rhythm. Lungs: Clear anteriorly and posteriorly. Abdomen: Soft active nontender. Extremities: Normal tone. Neurological: Mental status: Alert, cooperative, pleasant. Cranial nerves: Symmetric facial tone and trapezius. Motor: Normal strength and isolation all 4 limbs. Sensation: Intact throughout. DTRs: Symmetric and equal throughout. Mobility: Sits and stands with standby assistance but no verbal cueing or loss of balance. Results CBC & Chem 7: 03/04/21 02:22 03/05/21 09:07 Labs: Abnormal Lab Results - Last 24 Hours (Table) 03/05/21 Range/Units 09:07 Potassium 3.3 L (3.5-5.1) mmol/L Chloride 112 H (98-107) mmol/L BUN 21 H (7-17) mg/dL Creatinine 1.13 H (0.52-1.04) mg/dL Glucose 137 H (74-99) mg/dL Assessment and Plan (1) Diplopia Current Visit: Yes Status: Acute Code(s): H53.2 - DIPLOPIA SNOMED Code(s): 68503962 (2) Facial droop Current Visit: Yes Status: Acute Code(s): R29.810 - FACIAL WEAKNESS SNOMED Code(s): 01807013 Plan: Impression: 1. Gait disturbance with diplopia, left facial weakness and mild left side weakness with leftward lean. 2. COPD. 3. Hypertension. 4. Reflux and history of GI bleed. 5. History of cancer. Comments and plan: At this time PT and OT are ongoing. Safety concerns noted. Patient's strong preference is for return to home with home therapies. She feels that she will do well at home. Also suggest that she is doing well in room currently. We will await therapy notes today for final recommendation about but PT and OT note from yesterday with suggested a benefit of inpatient rehab.
[2021-03-06] MEDS: SYMBICORT 80-4.5 MCG INHALER INHALATION SCH (07:19)
[2021-03-06] MEDS: IPRATROPIUM 0.5 MG/2.5 ML NEBU INHALATION SCH ×2 (07:19→11:17)
[2021-03-06] MEDS: VIT A,C & E-LUTEIN-MINERALS 1 EACH TAB PO SCH (08:36)
[2021-03-06] MEDS: FAMOTIDINE 20 MG TAB PO SCH (08:36)
[2021-03-06] MEDS: ASPIRIN 81 MG PO SCH (08:36)
[2021-03-06] MEDS: amLODIPine 5 MG TAB PO SCH (08:36)
[2021-03-06] MEDS: ATORVASTATIN 40 MG TAB PO SCH (08:36)
[2021-03-06] MEDS: OXYBUTYNIN 10 MG TAB.ER.24 PO SCH (08:36)
[2021-03-06] MEDS: PARoxetine 20 MG TAB PO SCH (08:37)
[2021-03-06] MEDS: CLOPIDOGREL 75 MG TAB PO SCH (08:37)
[2021-03-06] MEDS: ENOXAPARIN 40 MG/0.4 ML SYRINGE SQ SCH ×2 (08:37→08:42)
[2021-03-06 09:54] LABS: Calcium 9.4 mg/dL (8.4-10.2); Potassium 3.6 mmol/L (3.5-5.1)
[2021-03-06 12:45] VITALS: BP 136/68; PULSE 65; TEMP 98.4
--- NOTE | 2021-03-06 14:19 | P.PN ---
Subjective This is a pleasant 70-year-old female past medical history significant for hypertension, colon cancer status post resection, GI bleeding in the past and gastroesophageal reflux disease. She quit smoking in 2017. She follows in the office with Dr. Key. We have been asked to see in consultation for elevated troponin. She presented to the hospital with symptoms of double vision. Patient seen and examined at bedside. No acute distress. She continues to have double vision and diarrhea. Her double vision has significantly improved. She denies any chest pain, shortness of breath, lightheadedness, dizziness, palpitations. Telemetry reviewed patient to be in sinus mechanism heart rate 6070s, she did have one 0.7 seconds positive on telemetry. Laboratory data reviewed sodium 141, potassium 3.6, BUN 19, serum creatinine 1.07 (1.13 yesterday). Patient currently maintained on amlodipine 5 mg daily, aspirin 81 mg daily, atorvastatin 40 mg daily, Plavix 75 mg daily DIAGNOSTICS Echocardiogram revealed EF 5560%, grade 2 diastolic dysfunction, mild aortic stenosis with a peak/mean been 18 mmHg/11 mmHg, mild mitral regurgitation EKG 03/05 morning, revealed sinus mechanism, LVH, T wave inversions in lateral and anterior leads. No changes from prior EKGs. MRI of the brain revealed no evidence of acute infarct or intracranial abnormality. Monitoring white matter disease likely chronic microvascular ischemic changes. However, Neurology reviewed MRI per Dr. Daly- "there is evidence of an acute ischemic infarct involving the right medial thalamic/periaqueductal region consistent with her symptoms of diplopia and imbalance and left-sided ataxia." September and October 2020, she underwent a dobutamine stress echocardiogram that was negative for stress-induced ischemia, an echocardiogram revealing preserved LV systolic function with ejection fraction 65% with mild mitral regurgitation and a calcified aortic valve and a 24-hour Holter monitor that revealed only one episode of sinus tachycardia with no significant arrhythmia otherwise. PHYSICAL EXAMINATION Blood pressure 124/73, heart rate 60, afebrile, maintaining oxygen saturations on room air. CONSTITUTIONAL: No apparent distress. HEENT: Neck Supple No JVD. No carotid bruit. CHEST EXAMINATION: Lungs are clear to auscultation. No chest wall tenderness is noted on palpation or with deep breathing. HEART EXAMINATION: Regular rate and rhythm. S1, S2 heard. No murmurs, gallops or rub. ABDOMEN: Soft, nontender. EXTREMITIES: 2+ peripheral pulses, no lower extremity edema and no calf tenderness. NEUROLOGIC EXAMINATION: Patient is awake, alert and oriented x3. ASSESSMENT Diplopia Hypokalemia, significant - improved Elevated troponin of unclear significance, flat not suggestive of acute coronary syndrome Hypertension History of colon cancer status post resection Acute Kidney Injury PLAN From a cardiology perspective, patient appears stable to be discharged home. Recommend follow up with Dr. Key in the office as an outpatient within 1-2 weeks. Nurse Practitioner note has been reviewed, I agree with a documented findings and plan of care. Patient was seen and examined. Objective - Vital Signs Vital signs: Vital Signs Temp 98.2 F 03/06/21 08:43 Pulse 66 03/06/21 11:26 Resp 16 03/06/21 08:43 BP 124/73 03/06/21 08:43 Pulse Ox 94 L 03/06/21 08:43 Intake & Output 03/05/21 03/06/21 03/06/21 18:59 06:59 18:59 Intake Total 900 240 Balance 900 240 Weight 78.8 kg Intake: Oral 900 240 Other: Voiding Method Toilet Toilet Toilet # Voids 1 2 # Bowel Movements 1 - Labs CBC & Chem 7: 03/04/21 02:22 03/06/21 09:14 Labs: Abnormal Lab Results - Last 24 Hours (Table) 03/06/21 Range/Units 09:14 Chloride 110 H (98-107) mmol/L BUN 19 H (7-17) mg/dL Creatinine 1.07 H (0.52-1.04) mg/dL Glucose 120 H (74-99) mg/dL
--- NOTE | 2021-03-06 16:22 | P.PN ---
Subjective Progress Note Date: 03/06/21 Patient was seen for a follow-up. Patient states she is feeling better. Denies any new focal symptoms. Her diplopia has improved. No numbness tingling or focal weakness. Patient wants to go home. Telemetry monitoring showing sinus rhythm, sinus bradycardia in 50s to 60s. Objective - Vital Signs Vital signs: Vital Signs Temp 98.4 F 03/06/21 12:00 Pulse 65 03/06/21 12:00 Resp 16 03/06/21 12:00 BP 136/68 03/06/21 12:00 Pulse Ox 92 L 03/06/21 12:00 Intake & Output 03/05/21 03/06/21 03/06/21 18:59 06:59 18:59 Intake Total 900 480 Balance 900 480 Weight 78.8 kg Intake: Oral 900 480 Other: Voiding Method Toilet Toilet Toilet # Voids 1 2 3 # Bowel Movements 1 - Exam Patient's mental status, speech and language functions are normal. No aphasia or dysarthria. Cranial nerves revealed pupils, equal, round and reacting. Visual wray are full. Extraocular muscles appears intact. Patient did not complain of double vision in any gaze. Face is symmetric. Patient has left ptosis. Tongue protrudes the midline. Facial sensation normal. On muscle strength testing there is no drift and the strength is normal in arms and legs. Cerebellar functions revealed no definitive ataxia today. Sensations are equal. - Labs CBC & Chem 7: 03/04/21 02:22 03/06/21 09:14 Labs: Abnormal Lab Results - Last 24 Hours (Table) 03/06/21 Range/Units 09:14 Chloride 110 H (98-107) mmol/L BUN 19 H (7-17) mg/dL Creatinine 1.07 H (0.52-1.04) mg/dL Glucose 120 H (74-99) mg/dL Assessment and Plan Assessment: * Acute ischemic CVA right medial thalamic region. * Hypertension * X tobacco use * History of colon cancer, currently in remission. Plan: * MRI of the brain reported as no definite evidence to suggest acute infarct or intracranial abnormality. However on my review, there is evidence of an acute ischemic infarct involving the right medial thalamic/periaqueductal region consistent with her symptoms of diplopia and imbalance and left-sided ataxia. Discussed with the radiologist to do an addendum to the report. * 2-D echo revealed normal left ventricular size. Moderate concentric LVH. Left ventricle systolic function is normal with EF between 55-60%. Left at rium is moderately dilated. Interatrial and interventricular septum intact. No shunt noted with bubble study. Aortic valve is trileaflet and is mildly thickened. Mild aortic stenosis. * Cardiology following for abnormal troponin. Patient will follow up with sheet sewer outpatient. * Patient to be placed on dual antiplatelet medication at this time because of an acute stroke obvious on MRI. After 3 weeks, may stop Plavix and continue aspirin 81 mg daily. * CTA of head and neck showed atherosclerotic vascular disease at the carotid artery bifurcations without evidence of hemodynamic stenosis. Moderate atheromatous calcification of the wall of the intracranial internal carotid arteries. No hemodynamic stenosis. * Hemoglobin A1c 5.9, lipid panel cholesterol 157, LDL 82.2, HDL 50.0, trig lycerides 124. Await acetylcholine receptor antibodies, Lyme titer, angiotensin converting enzyme level, ESR normal 5. TSH is normal 0.984. * Patient's diplopia has resolved. However she states that she was an avid reader and is having difficulty with reading. Suggest ophthalmology consultation. Patient states that she already has an appointment for a routine check in early March 2021. * Discussed with Dr. Bakari mehta.
--- NOTE | 2021-03-08 16:55 | P.DS ---
Providers Date of admission: 03/04/21 04:04 Expected date of discharge: 03/06/21 Attending physician: Juan Villegas Consults: 03/04/21 04:05 Consult Physician Routine Consulting Provider: Ankush Daly Consult Reason/Comments: Acute ischemic stroke versus TIA Do you want consulting provider notified?: Yes 03/04/21 07:20 Consult Physician Urgent Consulting Provider: Farooq Perez Consult Reason/Comments: elevated troponin Do you want consulting provider notified?: Yes 03/05/21 15:00 Consult Physician Routine Consulting Provider: Mumtaz Vaca Consult Reason/Comments: [facility] rehab Do you want consulting provider notified?: Yes Primary care physician: [facility] Course: Chief Complaint: Double vision History presenting complaint: This is a pleasant 70-year-old patient, Dr. Ty. Chronic stable medical conditions include GERD, hypertension, colon cancer, seizure, sciatica, COPD. Yesterday specifically at 7 PM she noticed that she was having double vision. She found that she was making it difficult to walk. And she did fall. also noticed some left-sided facial droop. Time to go to the ER double vision had somewhat improved. Still present. Denies any change in speech or swallowing. No weakness of the extremities. No headache. Computed tomography scan of the brain the ER was unremarkable. She still has some double vision. March 05: Patient is still having double vision. While walking tended to fall on the left. Earlier patient has spoken to the social economist had declined rehab. I discussed the case with Dr. Campos from neurologist. He looked at the MRI and there was a brainstem lesion explaining patient stroke. I did then discuss with Dr. mckee from radiology. Plavix is being added. Spoke to the business case analyst PTOT and dressed with the patient again about inpatient rehab. March 06: Double vision present. Had a long talk with the patient. She does remarkably be well in terms of walking as per PT OT. The point she'll not qualify for inpatient rehab. Care was discussed with the patient. Told her to be careful. Outpatient PT OT being at age., Communicated with social economist. Patient received Plavix for 3 weeks. Patient also told to follow-up with her sweet goods machine operator. Discussion and discharge planning more than 35 minutes Consultation: Dr. Campos from neurology Dr. Georges from cardiology Past medical history to include: Colon cancer treated with chemotherapy and surgery in 2016, sciatica, essential hypertension, GERD, COPD Social history: . Smoked less than a pack a day for 45 years stopped in 2017. Alkaline occasionally. Family history: Bladder cancer Physical examination: VITAL SIGNS: 98.4, 65, 16, 136/68, 92% room air GENERAL: Sitting at the edge of the bed, comfortable. EYES: Pupils equal. Conjunctiva normal. NECK: JVD not raised; masses not palpable. HEART: First and second heart sounds are normal; no edema. LUNGS: Respiratory rate normal; decreased breath sounds. ABDOMEN: Soft, nontender, liver spleen not palpable, no masses palpable. PSYCH: Alert and oriented x3; mood and affect normal. MUSCULAR skeletal: Evidence of OA NEUROLOGICAL: Has some double vision. Walking much improved as her PTOT INVESTIGATIONS, reviewed in the clinical context: March 06: Creatinine 1.07 MRI of the brain: Reviewed by Dr. Campos. Right medial thalamus area.. White count 9.3 hemoglobin 13.5 platelets 347 potassium 2.6 BUN 25 creatinine 1.21 glucose 122 Troponin I 0.115, 0.115, 0.104 TSH 0.984 EKG tracing personally reviewed by me-normal sinus rhythm, LVH findings Computed tomography scan of the brain without contrast: Cerebral atrophy. Chronic small vessel ischemia. CT angiography head and neck: Atherosclerotic vascular disease in the carotid artery bifurcations without evidence of significant stenosis Chest x-ray film personally reviewed by me-chronic changes 2-D echocardiogram: Moderate concentric LVH, EF 55-60% Assessment and plan: -Acute right brain stem/thalamic CVA. Aspirin 81 mg. Add Plavix 75 mg to 3 weeks. Lipitor. -Acute diplopia from above persists ophthalmology as an outpatient -Acute gait dysfunction from brainstem stroke. Much improved PTOT. Outpatient rehab -COPD in a X smoker Symbicort 80/4.52 puffs twice a day. Atrovent 0.5 nebulizer 4 times a day -Primary osteoarthritis Pain medications as needed -Hypertensive heart disease Plendil 5 mg daily -Chronic urinary stress incontinence Detrol LA 4 mg daily -Anxiety depression not otherwise specified Xanax 0.5 mg twice a day when necessary, Paxil 40 mg daily -Essential hypertension Plendil ER 5 mg daily -Troponin's positive. No clinical evidence of ACS. Likely from stroke. 2-D echo showed no wall motion abnormality. No further plan per cardiology Disposition: Home Patient Condition at Discharge: Fair Plan - Discharge Summary Discharge Rx Participant: No New Discharge Prescriptions: New Aspirin 81 mg PO DAILY Atorvastatin [Lipitor] 40 mg PO HS #30 tablet Clopidogrel Bisulfate [Plavix] 75 mg PO DAILY #21 tab Continue ALPRAZolam [Xanax] 0.5 mg PO BID PRN PRN Reason: Anxiety ARIPiprazole [Abilify] 5 mg PO Q48H PARoxetine HCL 40 mg PO DAILY Felodipine ER [Plendil] 5 mg PO DAILY Melatonin 10 mg PO HS PRN PRN Reason: Insomnia Vits A,C,E/Lutein/Minerals [Ocuvite with Lutein Tablet] 1 tab PO DAILY Tolterodine ER [Detrol LA] 4 mg PO DAILY Fluticasone/Umeclidin/Vilanter [Trelegy Ellipta 100-62.5-25] 1 tab PO DAILY Discharge Medication List ALPRAZolam [Xanax] 0.5 mg PO BID PRN 03/04/21 [History] ARIPiprazole [Abilify] 5 mg PO Q48H 03/04/21 [History] Felodipine ER [Plendil] 5 mg PO DAILY 03/04/21 [History] Fluticasone/Umeclidin/Vilanter [Trelegy Ellipta 100-62.5-25] 1 tab PO DAILY 03/04/21 [History] Melatonin 10 mg PO HS PRN 03/04/21 [History] PARoxetine HCL 40 mg PO DAILY 03/04/21 [History] Tolterodine ER [Detrol LA] 4 mg PO DAILY 03/04/21 [History] Vits A,C,E/Lutein/Minerals [Ocuvite with Lutein Tablet] 1 tab PO DAILY 03/04/21 [History] Aspirin 81 mg PO DAILY 03/06/21 [Rx] Atorvastatin [Lipitor] 40 mg PO HS #30 tablet 03/06/21 [Rx] Clopidogrel Bisulfate [Plavix] 75 mg PO DAILY #21 tab 03/06/21 [Rx] Follow up Appointment(s)/Referral(s): opthalmologydr [Other] - 1 Week Davis Ty DO [Primary Care Provider] - 1 Week [facility], [NON-STAFF] - 1-2 Days Alfredo Giles MD [Medical Doctor] - 2 Weeks Janusz Key MD [STAFF PHYSICIAN] - 2 Weeks Patient Instructions/Handouts: Ischemic Stroke (DC) Discharge Disposition: HOME SELF-CARE
[2021-03-09 13:07] LABS: Angiotensin-1 Converting Enz. 29 U/L (8-52)
[2021-03-11 06:35] LABS: Acetylchol Recept Bind Ab <0.30 nmol/L
== END 2021-03-06 14:55 | disposition home or self-care (01) | DRG 65 ==
LOC: EC 01:29 → 3SCARD 04:04
PROVIDERS: ADMIT Hospitalist; ATTEND Hospitalist
DX: I63.89 Other cerebral infarction (principal); N17.9 Acute kidney failure, unspecified; G81.94 Hemiplegia, unspecified affecting left nondominant side; H53.2 Diplopia; E87.6 Hypokalemia; F41.8 Other specified anxiety disorders; I11.9 Hypertensive heart disease without heart failure; J44.9 Chronic obstructive pulmonary disease, unspecified; K21.9 Gastro-esophageal reflux disease without esophagitis; R29.810 Facial weakness; M19.91 Primary osteoarthritis, unspecified site; M54.30 Sciatica, unspecified side; N39.3 Stress incontinence (female) (male); R56.9 Unspecified convulsions; Z79.02 Long term (current) use of antithrombotics/antiplatelets; Z79.82 Long term (current) use of aspirin; Z79.899 Other long term (current) drug therapy; Z80.0 Family history of malignant neoplasm of digestive organs; Z80.52 Family history of malignant neoplasm of bladder; Z85.038 Personal history of other malignant neoplasm of large intestine; Z88.0 Allergy status to penicillin; Z88.2 Allergy status to sulfonamides; Z88.8 Allergy status to other drugs, medicaments and biological substances; Z92.21 Personal history of antineoplastic chemotherapy; R53.1 Weakness; R77.8 Other specified abnormalities of plasma proteins; Z91.81 History of falling; R26.89 Other abnormalities of gait and mobility; R29.701 NIHSS score 1; Z87.891 Personal history of nicotine dependence
CPT/HCPCS: 36415; 70450; 70496; 70498; 70551; 71045; 80048; 80053; 80061; 82088; 82164; 83036; 83519; 83735; 84132; 84244; 84443; 84484; 85025; 85610; 85652; 85730; 86618; 93005; 93306; 94640; 94760; 96360; 96361; 99291

== ENCOUNTER → 2021-06-02 | Outpatient (CLI) | payer MEDICARE ==
--- NOTE | 2021-06-03 16:41 | CT ---
EXAMINATION TYPE: CT ChestAbdPelvis w con DATE OF EXAM: 06/02/2021 INDICATION: Colon Cancer COMPARISON: 10/21/2020, 06/05/2020 CT DLP: 1595 mGycm CONTRAST: Performed with Oral Contrast and with IV Contrast, patient injected with 100 ml mL of Isovue 300. TECHNIQUE: Axial images at 5 mm thick sections. Reconstructed images in the coronal plane. Delayed images through the kidneys. FINDINGS: CT CHEST: Portion of the thyroid visualized is normal. No suspicious lung nodules or focal infiltrates are present. Moderate emphysematous changes are prese nt. Some minimal scarring may be at the right lung apex, present previously. There is a 1.5 cm lymph node in the pretracheal space. This was present previously and stable. A 1.5 cm right hilar node appears to be present, also present previously. The ascending aorta diameter at the level of the main pulmonary artery is 3.4 cm. The main pulmonary artery diameter at the bifurcation is 3.2 cm. Small hiatal hernia is present. CT ABDOMEN: Liver: Normal Spleen: Normal Pancreas: Normal Adrenal glands: The adrenal glands are normal. Gallbladder: Surgically absent Kidneys: No masses are evident. No hydronephrosis is present. No cysts are present. Delayed images were obtained through the kidneys, which remain unremarkable. Aorta: Vascular calcification is within the aorta. Inferior vena cava: Normal. CT PELVIS: Loops of bowel within the abdomen and pelvis are normal. Diverticular changes are within the descend ing colon. There is redundancy of the sigmoid colon. Fecal debris extends to the rectum. There is an anastomosis within the ascending colon region. Oral contrast extends to the anastomosis. Obvious obst ruction is not identified. No suspicious dilated small bowel loops are evident. There are loops of bowel which are incompletely distended or lack oral contrast limiting their evaluation. Appendix: Not identified Urinary bladder: Normal Genitourinary structures: Uterus appears normal. Adnexal regions are clear Osseous structures: No suspicious lytic or sclerotic lesions. IMPRESSIONS: 1. Postsurgical changes within the ascending colon. 2. No suspicious changes to suggest recurrent or metastatic colon cancer. 3. Diverticulosis without acute diverticulitis. 4. Small hiatal hernia. 5. Stable prominent mediastinal lymph nodes discussed above.
== END | disposition home or self-care (01) ==
LOC: RADCTMAIN 10:27
PROVIDERS: ATTEND Internal Medicine Hematology & Oncology
DX: C18.2 Malignant neoplasm of ascending colon (principal); K57.90 Diverticulosis of intestine, part unspecified, without perforation or abscess without bleeding; K44.9 Diaphragmatic hernia without obstruction or gangrene
CPT/HCPCS: 82565; 84520; 71260; 74177; 36415; Q9967

== ENCOUNTER 2021-09-27 13:00 | Inpatient (IN) | payer MEDICARE ==
[2021-09-27] MEDS ORDERED: SODIUM CHLORIDE 0.9% 1,000 ML IV ONE (13:09)
[2021-09-27] MEDS ORDERED: DIPHENOX-ATROP 2.5-0.025 MG 1 EACH TAB PO STA (13:09)
[2021-09-27] MEDS ORDERED: SODIUM CHLORIDE 0.9% 500 ML 500 ML IV ONE (13:09)
--- NOTE | 2021-09-27 13:15 | ED ---
General Adult HPI - General Stated complaint: fall, ankle injury Time Seen by Provider: 09/27/21 13:00 Source: patient, RN notes reviewed, old records reviewed - History of Present Illness Initial comments: This is a 71-year-old female comes into the emergency department complaining of right ankle pain. Patient states for over a week now she's been having constant diarrhea and has been decreasing her by mouth intake. Patient states she has not anything to eat or drink since last evening. Patient states she got up today to go to the bathroom she felt lightheaded and fell and twisted her right ankle. Patient denies any trauma to the head or neck pain patient denies any numbness or weakness. Patient denies any chest pain difficulty breathing shortness of breath per patient denies any palpitations. Patient denies any abdominal pain. Patient states she's not been on any recent antibiotics. Patient states she has not had any nausea or vomiting but has had profuse diarrhea. - Related Data Home Medications Medication Instructions Recorded Confirmed ALPRAZolam [Xanax] 0.5 mg PO BID PRN 03/04/21 03/04/21 ARIPiprazole [Abilify] 5 mg PO Q48H 03/04/21 03/04/21 Felodipine ER [Plendil] 5 mg PO DAILY 03/04/21 03/04/21 Fluticasone/Umeclidin/Vilanter 1 tab PO DAILY 03/04/21 03/04/21 [Trelegy Ellipta 100-62.5-25] Melatonin 10 mg PO HS PRN 03/04/21 03/04/21 PARoxetine HCL 40 mg PO DAILY 03/04/21 03/04/21 Tolterodine ER [Detrol LA] 4 mg PO DAILY 03/04/21 03/04/21 Vits A,C,E/Lutein/Minerals 1 tab PO DAILY 03/04/21 03/04/21 [Ocuvite with Lutein Tablet] Previous Rx's Medication Instructions Recorded Aspirin 81 mg PO DAILY 03/06/21 Atorvastatin [Lipitor] 40 mg PO HS #30 tablet 03/06/21 Clopidogrel Bisulfate [Plavix] 75 mg PO DAILY #21 tab 03/06/21 Allergies Allergy/AdvReac Type Severity Reaction Status Date / Time benazepril Allergy Swelling Verified 03/04/21 08:16 Penicillins Allergy Swelling Verified 03/04/21 08:16 sertraline [From Zoloft] Allergy Swelling Verified 03/04/21 08:16 Sulfa (Sulfonamide Allergy Swelling Verified 03/04/21 08:16 Antibiotics) Review of Systems ROS Statement: Those systems with pertinent positive or pertinent negative responses have been documented in the HPI. ROS Other: All systems not noted in ROS Statement are negative. Past Medical History Past Medical History: Cancer, GERD/Reflux, GI Bleed, Hypertension, Musculoskel etal Disorder Additional Past Medical History / Comment(s): colon cancer 2016-had surg. & chemo, sciatica History of Any Multi-Drug Resistant Organisms: None Reported Past Surgical History: Bowel Resection, Cholecystectomy, Orthopedic Surgery, Tonsillectomy Additional Past Surgical History / Comment(s): right wrist surgery post fracture, robotic colectomy Past Anesthesia/Blood Transfusion Reactions: No Reported Reaction Past Psychological History: Anxiety Smoking Status: Former smoker Past Alcohol Use History: Occasional Past Drug Use History: None Reported - Past Family History Mother Family Medical History: Cancer Additional Family Medical History / Comment(s): Bladder cancer. Sister(s) Family Medical History: Cancer Additional Family Medical History / Comment(s): Colon cancer. General Exam - General Exam Comments Initial Comments: GENERAL: Patient is well-developed and well-nourished. Patient is nontoxic and well- hydrated and is in mild distress. ENT: Neck is soft and supple. No significant lymphadenopathy is noted. Oropharynx is clear. Moist mucous membranes. Neck has full range of motion without eliciting any pain. EYES: The sclera were anicteric and conjunctiva were pink and moist. Extraocular movements were intact and pupils were equal round and reactive to light. Eyelids were unremarkable. PULMONARY: Unlabored respirations. Good breath sounds bilaterally. No audible rales rhonchi or wheezing was noted. CARDIOVASCULAR: There is a regular rate and rhythm without any murmurs gallops or rubs. ABDOMEN: Soft and nontender with normal bowel sounds. SKIN: Skin is clear with no lesions or rashes and otherwise unremarkable. NEUROLOGIC: Patient is alert and oriented x3. Cranial nerves II through XII are grossly intact. Motor and sensory are also intact. Normal speech, volume and content. Symmetrical smile. MUSCULOSKELETAL: Patient's right ankle is very tender to the lateral medial malleolus patient has no proximal leg tenderness. Patient has no foot tenderness. LYMPHATICS: No significant lymphadenopathy is noted PSYCHIATRIC: Normal psychiatric evaluation. Course Vital Signs 09/27/21 09/27/21 13:00 14:36 Temperature 97.6 F 98.0 F Pulse Rate 57 L 70 Respiratory 18 18 Rate Blood Pressure 92/58 115/57 O2 Sat by Pulse 93 L 95 Oximetry Medical Decision Making - Medical Decision Making EKG shows atrial flutter at 64 bpm QRS is 89 QT interval is 443 QTC is 452. Patient's EKG shows T-wave inversions in precordial leads these were seen on previous EKG. X-ray of the ankle shows trimalleolar unstable fracture. I spoke with Dr. John he wanted to take the patient or today I spoke with Dr. Villegas he came down and saw the patient medically cleared the patient for surgery and the patient will be going to the OR and admitted to Dr. John Patient did get some Lomotil for her diarrhea. - Lab Data Result diagrams: 09/27/21 13:51 09/27/21 13:51 Lab Results 09/27/21 09/27/21 09/27/21 Range/Units 13:51 13:51 13:51 WBC 12.9 H (3.8-10.6) k/uL RBC 4.59 (3.80-5.40) m/uL Hgb 13.8 (11.4-16.0) gm/dL Hct 44.3 (34.0-46.0) % MCV 96.4 (80.0-100.0) fL MCH 30.2 (25.0-35.0) pg MCHC 31.3 (31.0-37.0) g/dL RDW 14.1 (11.5-15.5) % Plt Count 286 (150-450) k/uL MPV 7.6 Neutrophils % 83 % Lymphocytes % 6 % Monocytes % 6 % Eosinophils % 2 % Basophils % 1 % Neutrophils # 10.7 H (1.3-7.7) k/uL Lymphocytes # 0.8 L (1.0-4.8) k/uL Monocytes # 0.8 (0-1.0) k/uL Eosinophils # 0.3 (0-0.7) k/uL Basophils # 0.1 (0-0.2) k/uL Sodium 140 (137-145) mmol/L Potassium 4.1 (3.5-5.1) mmol/L Chloride 114 H (98-107) mmol/L Carbon Dioxide 14 L (22-30) mmol/L Anion Gap 12 mmol/L BUN 24 H (7-17) mg/dL Creatinine 1.50 H (0.52-1.04) mg/dL Est GFR (CKD-EPI)AfAm 40 (>60 ml/min/1.73 sqM) Est GFR (CKD-EPI)NonAf 34 (>60 ml/min/1.73 sqM) Glucose 103 H (74-99) mg/dL Calcium 8.6 (8.4-10.2) mg/dL Total Bilirubin 0.8 (0.2-1.3) mg/dL AST 23 (14-36) U/L ALT 14 (4-34) U/L Alkaline Phosphatase 82 (38-126) U/L Total Creatine Kinase 104 (30-135) U/L CK-MB (CK-2) 4.2 H (0.0-2.4) ng/mL CK-MB (CK-2) Rel Index 4.0 Total Protein 6.3 (6.3-8.2) g/dL Albumin 3.7 (3.5-5.0) g/dL Urine Color Urine Appearance (Clear) Urine pH (5.0-8.0) Ur Specific [place] (1.001-1.035) Urine Protein (Negative) Urine Glucose (UA) (Negative) Urine Ketones (Negative) Urine Blood (Negative) Urine Nitrite (Negative) Urine Bilirubin (Negative) Urine Urobilinogen (<2.0) mg/dL Ur Leukocyte Esterase (Negative) Urine RBC (0-5) /hpf Urine WBC (0-5) /hpf Ur Squamous Epith Cells (0-4) /hpf Urine Bacteria (None) /hpf Hyaline Casts (0-2) /lpf Urine Mucus (None) /hpf 09/27/21 Range/Units 14:08 WBC (3.8-10.6) k/uL RBC (3.80-5.40) m/uL Hgb (11.4-16.0) gm/dL Hct (34.0-46.0) % MCV (80.0-100.0) fL MCH (25.0-35.0) pg MCHC (31.0-37.0) g/dL RDW (11.5-15.5) % Plt Count (150-450) k/uL MPV Neutrophils % % Lymphocytes % % Monocytes % % Eosinophils % % Basophils % % Neutrophils # (1.3-7.7) k/uL Lymphocytes # (1.0-4.8) k/uL Monocytes # (0-1.0) k/uL Eosinophils # (0-0.7) k/uL Basophils # (0-0.2) k/uL Sodium (137-145) mmol/L Potassium (3.5-5.1) mmol/L Chloride (98-107) mmol/L Carbon Dioxide (22-30) mmol/L Anion Gap mmol/L BUN (7-17) mg/dL Creatinine (0.52-1.04) mg/dL Est GFR (CKD-EPI)AfAm (>60 ml/min/1.73 sqM) Est GFR (CKD-EPI)NonAf (>60 ml/min/1.73 sqM) Glucose (74-99) mg/dL Calcium (8.4-10.2) mg/dL Total Bilirubin (0.2-1.3) mg/dL AST (14-36) U/L ALT (4-34) U/L Alkaline Phosphatase (38-126) U/L Total Creatine Kinase (30-135) U/L CK-MB (CK-2) (0.0-2.4) ng/mL CK-MB (CK-2) Rel Index Total Protein (6.3-8.2) g/dL Albumin (3.5-5.0) g/dL Urine Color Yellow Urine Appearance Clear (Clear) Urine pH 5.0 (5.0-8.0) Ur Specific [place] 1.017 (1.001-1.035) Urine Protein Trace H (Negative) Urine Glucose (UA) Negative (Negative) Urine Ketones Negative (Negative) Urine Blood Negative (Negative) Urine Nitrite Negative (Negative) Urine Bilirubin Negative (Negative) Urine Urobilinogen <2.0 (<2.0) mg/dL Ur Leukocyte Esterase Small H (Negative) Urine RBC 1 (0-5) /hpf Urine WBC 1 (0-5) /hpf Ur Squamous Epith Cells <1 (0-4) /hpf Urine Bacteria Rare H (None) /hpf Hyaline Casts 14 H (0-2) /lpf Urine Mucus Rare H (None) /hpf Disposition Clinical Impression: Fall, Acute diarrhea, Trimalleolar fracture Disposition: ADMITTED IP TO THIS HOSP Referrals: Davis Ty DO [Primary Care Provider] - 1-2 days Time of Disposition: 15:05
--- NOTE | 2021-09-27 13:51 | XR ---
EXAMINATION TYPE: XR ankle complete RT DATE OF EXAM: 09/27/2021 COMPARISON: NONE HISTORY: 71-year-old female right ankle pain after fall TECHNIQUE: 3 views FINDINGS: Transverse fracture medial malleolus with 1.1 cm lateral displacement and 1.0 cm anterior displacemen t. Oblique fracture distal fibula with 9 mm lateral and 5 mm posterior displacement. Small curvilinea r fracture fragment also noted along the posterior malleolus. There is lateral subluxation of the ank le involving half the width of the talar dome. Small plantar heel spur. IMPRESSION: Unstable trimalleolar fracture subluxation right ankle as described above.
[2021-09-27 13:57] LABS: Basophils # (A) 0.1 k/uL (0-0.2); Basophils % (A) 1 %; Eosinophils # (A) 0.3 k/uL (0-0.7); Eosinophils % (A) 2 %; HCT 44.3 % (34.0-46.0); HGB 13.8 gm/dL (11.4-16.0); Lymphocytes # (A) 0.8 k/uL (1.0-4.8); Lymphocytes % (A) 6 %; MCH 30.2 pg (25.0-35.0); MCHC 31.3 g/dL (31.0-37.0); MCV 96.4 fL (80.0-100.0); Mean Platelet Volume 7.6; Monocytes # (A) 0.8 k/uL (0-1.0); Monocytes % (A) 6 %; Neutrophils # (A) 10.7 k/uL (1.3-7.7); Neutrophils % (A) 83 %; Platelet Count 286 k/uL (150-450); RBC 4.59 m/uL (3.80-5.40); RDW 14.1 % (11.5-15.5); WBC 12.9 k/uL (3.8-10.6)
[2021-09-27 14:15] LABS: Creatine Kinase MB 4.2 ng/mL (0.0-2.4)
[2021-09-27 14:15] LABS: Appearance,Urine Clear (Clear); Bacteria,Urine Rare /hpf; Bilirubin,Urine Negative (Negative); Blood,Urine Negative (Negative); Color,Urine Yellow; Glucose,Urine (UA) Negative (Negative); Hyaline Casts,Urine 14 /lpf (0-2); Ketones,Urine Negative (Negative); Leukocyte Esterase,Urine Small (Negative); Mucus,Urine Rare /hpf; Nitrite,Urine Negative (Negative); Protein,Urine Trace (Negative); RBC,Urine 1 /hpf (0-5); Specific Gravity,Urine 1.017 (1.001-1.035); Squamous Epithelial Cell,Urine <1 /hpf (0-4); Urobilinogen,Urine <2.0 mg/dL (<2.0); WBC,Urine 1 /hpf (0-5)
[2021-09-27 14:34] LABS: Albumin 3.7 g/dL (3.5-5.0); Calcium 8.6 mg/dL (8.4-10.2); Potassium 4.1 mmol/L (3.5-5.1); Total Bilirubin 0.8 mg/dL (0.2-1.3); Total Protein 6.3 g/dL (6.3-8.2)
--- NOTE | 2021-09-27 15:11 | P.HPOR ---
History of Present Illness H&P Date: 09/27/21 The patient is a very pleasant 71-year-old female who sustained a fall earlier today when she became dizzy resulting in an isolated injury to her right ankle. She was brought to the emergency department where x-rays showed a completely displaced bimalleolar ankle fracture dislocation. I met the patient in the emergency department and she was complaining of isolated pain in her right ankle. She denies pre-existing pain in the ankle. She has no other complaints other than current diarrhea for the past several days. Past Medical History Past Medical History: Cancer, GERD/Reflux, GI Bleed, Hypertension, Musculoskeletal Disorder Additional Past Medical History / Comment(s): colon cancer 2016-had surg. & chemo, sciatica History of Any Multi-Drug Resistant Organisms: None Reported Past Surgical History: Bowel Resection, Cholecystectomy, Orthopedic Surgery, Tonsillectomy Additional Past Surgical History / Comment(s): right wrist surgery post fracture , robotic colectomy Past Anesthesia/Blood Transfusion Reactions: No Reported Reaction Past Psychological History: Anxiety Smoking Status: Former smoker Past Alcohol Use History: Occasional Past Drug Use History: None Reported - Past Family History Mother Family Medical History: Cancer Additional Family Medical History / Comment(s): Bladder cancer. Sister(s) Family Medical History: Cancer Additional Family Medical History / Comment(s): Colon cancer. Medications and Allergies Home Medications Medication Instructions Recorded Confirmed Type ALPRAZolam [Xanax] 0.5 mg PO BID PRN 03/04/21 03/04/21 History ARIPiprazole [Abilify] 5 mg PO Q48H 03/04/21 03/04/21 History Felodipine ER [Plendil] 5 mg PO DAILY 03/04/21 03/04/21 History Fluticasone/Umeclidin/Vilanter 1 tab PO DAILY 03/04/21 03/04/21 History [Trelegy Ellipta 100-62.5-25] Melatonin 10 mg PO HS PRN 03/04/21 03/04/21 History PARoxetine HCL 40 mg PO DAILY 03/04/21 03/04/21 History Tolterodine ER [Detrol LA] 4 mg PO DAILY 03/04/21 03/04/21 History Vits A,C,E/Lutein/Minerals 1 tab PO DAILY 03/04/21 03/04/21 History [Ocuvite with Lutein Tablet] Aspirin 81 mg PO DAILY 03/06/21 Rx Atorvastatin [Lipitor] 40 mg PO HS #30 tablet 03/06/21 Rx Clopidogrel Bisulfate [Plavix] 75 mg PO DAILY #21 tab 03/06/21 Rx Allergies Allergy/AdvReac Type Severity Reaction Status Date / Time benazepril Allergy Swelling Verified 03/04/21 08:16 Penicillins Allergy Swelling Verified 03/04/21 08:16 sertraline [From Zoloft] Allergy Swelling Verified 03/04/21 08:16 Sulfa (Sulfonamide Allergy Swelling Verified 03/04/21 08:16 Antibiotics) Physical Examination The patient is in no apparent distress and is resting comfortably on her ho spital gurney. Her head is normocephalic and atraumatic. She demonstrates nonlabored breathing. Her abdomen is soft and nontender. Her upper extremities without deformity. Her left lower extremities without deformity and is nontender. A focused examination of the right lower extremity was conducted. On inspection there is obvious deformity of the ankle. There are no open wounds. There is minimal to no swelling and no fracture blisters. She has exquisite tenderness over the malleoli. She is a palpable dorsalis pedis pulse. The toes are warm and well perfused with brisk capillary refill. Sensation is intact to light touch throughout the right foot. She is able to actively plantarflex and dorsiflex her ankle and her toes. Results X-rays of the ankle show a completely displaced bimalleolar ankle fracture dislocation and diffuse osteopenia - Labs Labs: Abnormal Lab Results - Last 24 Hours (Table) 09/27/21 09/27/21 09/27/21 Range/Units 13:51 13:51 13:51 WBC 12.9 H (3.8-10.6) k/uL Neutrophils # 10.7 H (1.3-7.7) k/uL Lymphocytes # 0.8 L (1.0-4.8) k/uL Chloride 114 H (98-107) mmol/L Carbon Dioxide 14 L (22-30) mmol/L BUN 24 H (7-17) mg/dL Creatinine 1.50 H (0.52-1.04) mg/dL Glucose 103 H (74-99) mg/dL CK-MB (CK-2) 4.2 H (0.0-2.4) ng/mL Urine Protein (Negative) Ur Leukocyte Esterase (Negative) Urine Bacteria (None) /hpf Hyaline Casts (0-2) /lpf Urine Mucus (None) /hpf 09/27/21 Range/Units 14:08 WBC (3.8-10.6) k/uL Neutrophils # (1.3-7.7) k/uL Lymphocytes # (1.0-4.8) k/uL Chloride (98-107) mmol/L Carbon Dioxide (22-30) mmol/L BUN (7-17) mg/dL Creatinine (0.52-1.04) mg/dL Glucose (74-99) mg/dL CK-MB (CK-2) (0.0-2.4) ng/mL Urine Protein Trace H (Negative) Ur Leukocyte Esterase Small H (Negative) Urine Bacteria Rare H (None) /hpf Hyaline Casts 14 H (0-2) /lpf Urine Mucus Rare H (None) /hpf H & H 09/27/21 Range/Units 13:51 Hgb 13.8 (11.4-16.0) gm/dL Hct 44.3 (34.0-46.0) % Result Diagrams: 09/27/21 13:51 09/27/21 13:51 Assessment and Plan Assessment: Closed, completely displaced right bimalleolar ankle fracture dislocation Plan: I long discussion with the patient and her in the emergency department. She has minimal swelling at this time and we discussed that it would be possible to definitively fix her ankle fracture this afternoon before soft tissue swelling sets in. We also discussed placing her in a splint and discharging her from the emergency department and scheduling her surgery in 10-14 days. The patient and her both requested to proceed with surgery this afternoon. The patient was seen and evaluated in the emergency department by Dr. Villegas who cleared her for surgery this afternoon. I discussed the potential risks and complications of surgery including but not limited to risks from anesthesia, delayed wound healing, damage to local blood vessels or nerves, nonunion, malunion, loss of reduction, hardware failure, malreduction of the ankle, post traumati arthritis, chronic pain, chronic swelling, and inability to regain preinjury level of function, DVT, PE, other medical complications, failure to thrive, and possibly loss of life or limb. The patient and her voiced understanding and provided their consent to go forward with surgery. Time with Patient: Greater than 30
--- NOTE | 2021-09-27 15:42 | XR ---
EXAMINATION TYPE: XR chest 1V portable DATE OF EXAM: 09/27/2021 COMPARISON: Chest radiograph 03/04/2021 HISTORY: Presurgical chest radiograph TECHNIQUE: Single frontal view of the chest is obtained. FINDINGS: Cardiomediastinal silhouette appears within normal limits. Lungs appear hyper aerated. Righ t basilar subsegmental atelectasis and/or scarring. No dense focal consolidation, pleural effusion, o r pneumothorax. Visualized osseous structures appear intact. IMPRESSION: No acute process.
--- NOTE | 2021-09-27 15:45 | P.CONS ---
History of Present Illness - Reason for Consult Consult date: 09/27/21 Medical management Requesting physician: Lino John - Chief Complaint Right heel injury - History of Present Illness History presenting complaint: 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 Chronic stable medical conditions include GERD, hypertension, colon cancer, seizure, sciatica, COPD. patient was here in the hospital in February 2021 with right brainstem thalamic stroke. Patient has been noticing last few days that she gets dizzy when she stands up. She's been having anywhere from 3-4 BMs a day. Last few days. Oral intake has been fair. Quite often times she will not have breakfast and lunch and just have her dinner. Patient has known atrial flutter fibrillation for which she is on eliquis. Did not take her medication this morning. Patient got a bit dizzy and lost her balance injuring her right ankle. In the ER x-ray studies c onfirmed right ankle fracture. No chest pain or palpitation. Review of systems: GEN.: None EYES: None HEENT: None NECK: None RESPIRATORY: None CARDIOVASCULAR: None GASTROINTESTINAL: As above GENITOURINARY: None MUSCULOSKELETAL: Joint pains LYMPHATICS: None HEMATOLOGICAL: None PSYCHIATRY: None NEUROLOGICAL: None Past medical history to include: Colon cancer treated with chemotherapy and surgery in 2016, sciatica, essential hypertension, GERD, COPD. Acute right brainstem thalamic stroke in February 2021 Social history: . Smoked less than a pack a day for 45 years stopped in 2016. Alcohol occasionally. Family history: Bladder cancer Physical examination: VITAL SIGNS: 98, 70, 18, 150s/57, 95% room air GENERAL: BMI 30, declining bed, awake, tired EYES: Pupils equal. Conjunctiva normal. HEENT: External appearance of nose and ears normal, oral cavity grossly normal. NECK: JVD not raised; masses not palpable. HEART: Heart sounds irregular; no edema. LUNGS: Respiratory rate normal; decreased breath sounds. ABDOMEN: Soft, nontender, liver spleen not palpable, no masses palpable. PSYCH: Alert and oriented x3; mood and affect normal. MUSCULAR skeletal: Evidence of OA . Tenderness in the right ankle NEUROLOGICAL: Cranial nerves grossly intact; no facial asymmetry, power and sensation grossly intact. LYMPHATICS: No lymph nodes palpable in the axilla and neck INVESTIGATIONS, reviewed in the clinical context: White count 12.9 hemoglobin 13.8 platelets 286 potassium 4.1 BUN 24 creatinine 1.5 EKG tracing personally reviewed by me atrial flutter rate around 80 Chest x-ray film personally reviewed by me-some hyperinflation. Atelectasis. X-ray complete right: Unstable trimalleolar fracture subluxation right ankle Previous labs: February 2021 March 06: Creatinine 1.07 2-D echocardiogram: Moderate concentric LVH, EF 55-60% Assessment and plan: -Acute right ankle trimalleolar fracture with some basic cessation secondary to fall Patient is being taken for surgery later today. -COPD in a X smoker trelegy -Primary osteoarthritis Pain medications as needed -Hypertensive heart disease -Chronic urinary stress incontinence Detrol LA 4 mg daily -Anxiety depression not otherwise specified Xanax 0.5 mg twice a day when necessary, Paxil 40 mg daily -Essential hypertension Monitor blood pressure -Persistent atrial flutter fibrillation: Rate controlled Patient will eliquis. -Acute kidney injury from patient having diarrhea. IV fluids -Acute metabolic acidosis from diarrhea Bicarbonate drip Perioperative cardiac risk assessment: Patient is known atrial flutter fibrillation. On eliquis. Discussed with Dr. John. Local torniquet will be used. This is a relatively low blood loss surgery. Patient has no active cardiac symptoms. Has limited exercise cardiac tolerance. Patient has a recent 2-D echocardiogram in February that was unremarkable. Patient is medically stable to proceed with surgery with low risk. Patient will be given bicarbonate drip. Sodium bicarbonate drip at 100 mL an hour. Eliquis to be resumed when okay with orthopedics. Telemetry. Care was discussed with the patient has been at the bedside. Questions answered. Thank you Dr. John Past Medical History Past Medical History: Cancer, GERD/Reflux, GI Bleed, Hypertension, Musculoskeletal Disorder Additional Past Medical History / Comment(s): colon cancer 2016-had surg. & chem o, sciatica History of Any Multi-Drug Resistant Organisms: None Reported Past Surgical History: Bowel Resection, Cholecystectomy, Orthopedic Surgery, Tonsillectomy Additional Past Surgical History / Comment(s): right wrist surgery post fracture, robotic colectomy Past Anesthesia/Blood Transfusion Reactions: No Reported Reaction Past Psychological History: Anxiety Smoking Status: Former smoker Past Alcohol Use History: Occasional Past Drug Use History: None Reported - Past Family History Mother Family Medical History: Cancer Additional Family Medical History / Comment(s): Bladder cancer. Sister(s) Family Medical History: Cancer Additional Family Medical History / Comment(s): Colon cancer. Medications and Allergies Home Medications Medication Instructions Recorded Confirmed Type ALPRAZolam [Xanax] 0.5 mg PO BID PRN 03/04/21 03/04/21 History ARIPiprazole [Abilify] 5 mg PO Q48H 03/04/21 03/04/21 History Felodipine ER [Plendil] 5 mg PO DAILY 03/04/21 03/04/21 History Fluticasone/Umeclidin/Vilanter 1 tab PO DAILY 03/04/21 03/04/21 History [Trelegy Ellipta 100-62.5-25] Melatonin 10 mg PO HS PRN 03/04/21 03/04/21 History PARoxetine HCL 40 mg PO DAILY 03/04/21 03/04/21 History Tolterodine ER [Detrol LA] 4 mg PO DAILY 03/04/21 03/04/21 History Vits A,C,E/Lutein/Minerals 1 tab PO DAILY 03/04/21 03/04/21 History [Ocuvite with Lutein Tablet] Aspirin 81 mg PO DAILY 03/06/21 Rx Atorvastatin [Lipitor] 40 mg PO HS #30 tablet 03/06/21 Rx Clopidogrel Bisulfate [Plavix] 75 mg PO DAILY #21 tab 03/06/21 Rx Allergies Allergy/AdvReac Type Severity Reaction Status Date / Time benazepril Allergy Swelling Verified 03/04/21 08:16 Penicillins Allergy Swelling Verified 03/04/21 08:16 sertraline [From Zoloft] Allergy Swelling Verified 03/04/21 08:16 Sulfa (Sulfonamide Allergy Swelling Verified 03/04/21 08:16 Antibiotics) Physical Exam Vitals: Vital Signs Temp Pulse Resp BP Pulse Ox 09/27/21 14:36 98.0 F 70 18 115/57 95 09/27/21 13:00 97.6 F 57 L 18 92/58 93 L Intake and Output 09/27/21 09/27/21 09/27/21 06:59 14:59 22:59 Other: Weight 79.379 kg Results CBC & Chem 7: 09/27/21 13:51 09/27/21 13:51 Labs: Abnormal Lab Results - Last 24 Hours (Table) 09/27/21 09/27/21 09/27/21 Range/Units 13:51 13:51 13:51 WBC 12.9 H (3.8-10.6) k/uL Neutrophils # 10.7 H (1.3-7.7) k/uL Lymphocytes # 0.8 L (1.0-4.8) k/uL Chloride 114 H (98-107) mmol/L Carbon Dioxide 14 L (22-30) mmol/L BUN 24 H (7-17) mg/dL Creatinine 1.50 H (0.52-1.04) mg/dL Glucose 103 H (74-99) mg/dL CK-MB (CK-2) 4.2 H (0.0-2.4) ng/mL Urine Protein (Negative) Ur Leukocyte Esterase (Negative) Urine Bacteria (None) /hpf Hyaline Casts (0-2) /lpf Urine Mucus (None) /hpf 09/27/21 Range/Units 14:08 WBC (3.8-10.6) k/uL Neutrophils # (1.3-7.7) k/uL Lymphocytes # (1.0-4.8) k/uL Chloride (98-107) mmol/L Carbon Dioxide (22-30) mmol/L BUN (7-17) mg/dL Creatinine (0.52-1.04) mg/dL Glucose (74-99) mg/dL CK-MB (CK-2) (0.0-2.4) ng/mL Urine Protein Trace H (Negative) Ur Leukocyte Esterase Small H (Negative) Urine Bacteria Rare H (None) /hpf Hyaline Casts 14 H (0-2) /lpf Urine Mucus Rare H (None) /hpf
[2021-09-27] MEDS ORDERED: fentaNYL (PF) 50 MCG/ML 2 ML AMP ONE (16:10)
[2021-09-27] MEDS ORDERED: PHENYLEPHRINE-0.9% NACL SYG 1,000 MCG/10 ML SYRINGE ONE (16:10)
[2021-09-27] MEDS ORDERED: MIDAZOLAM 2 MG/2 ML VIAL ONE (16:10)
[2021-09-27] MEDS ORDERED: PROPOFOL 10 MG/ML 20 ML VIAL IV ONE (16:10)
[2021-09-27] MEDS ORDERED: LACTATED RINGERS 1,000 ML IV ONE (16:10)
[2021-09-27] MEDS ORDERED: LIDOCAINE 1% INJ 10MG/ML (20 ML MDV) ONE (16:10)
[2021-09-27 16:52] LABS: Glucose,Whole Blood 95 mg/dL (75-99)
--- NOTE | 2021-09-27 16:56 | P.OP ---
Date of Procedure: 09/27/21 Preoperative Diagnosis: Closed right bimalleolar ankle fracture Postoperative Diagnosis: Same Procedure(s) Performed: Closed reduction and application of a long-leg splint by physician, right bimalleolar ankle fracture as part of a staged procedure Surgeon: Lino John Ibm Bpm Architect #1: Kelly Frye Condition: stable Disposition: ICU Indications for Procedure: The patient is a very pleasant 71-year-old female whose had several days of diarrhea. She became lightheaded earlier today and fell sustaining a closed right ankle fracture. She was brought into the emergency department. I was are the in the emergency department seeing another patient and was consulted to see Yanni. I met with Yanni and her Akin. She had a completely displaced ankle fracture dislocation. She had minimal swelling. We discussed those reduction in the emergency department and sending her home versus admitting her to the hospital and taken her to the operating room this afternoon before swelling and set into fix her ankle fracture. The patient and her both requested proceeding with surgery this afternoon. She was seen and cleared for surgery by Dr. Villegas. Operative Findings: Prior to induction of anesthesia the patient went into an unstable cardiac arrhythmia. Anesthesia was able to get the patient back into normal sinus rhythm but we both agreed to cancel the patient's surgery. Description of Procedure: The patient was identified in preoperative holding and the correct right leg was marked with my initials. I reviewed the consent form with the patient and her . All of their questions were answered. The patient was then brought back to the operating room. She was positioned on the OR table. Prior to induction of anesthesia the patient's cardiac tracing became unstable and there was concern about proceeding with surgery. At this point both the anesthesiologist and myself agreed to perform a closed reduction and application of a splint rather than proceeding with a general anesthetic. A timeout was performed identifying the correct patient operative extremity and procedure. The ankle was reduced with the Samantha maneuver. Reduction was verified with fluoroscopy. A bulky Purcell splint with 3-point varus mold was applied. Post reduction fluoroscopy imaging showed a reduced ankle mortise. The patient was then brought back to the ICU in stable condition. Plan: The patient is to remain strictly nonweightbearing on her right lower extremity. She'll be transferred to the ICU for monitoring. She will eventually need surgery on her ankle once she is cleared by internal medicine and cardiology. Surgery will not be performed at this admission as she will need 10-14 days to allow soft tissue swelling resolution. Discharge planning as she may need discharge to subacute nursing facility or rehab.
--- NOTE | 2021-09-27 17:03 | XR ---
EXAMINATION TYPE: XR ankle limited RT DATE OF EXAM: 09/27/2021 CLINICAL HISTORY: Right ankle fracture or dislocation TECHNIQUE: Frontal, lateral and oblique images of the right ankle are obtained. COMPARISON: Right ankle radiograph 09/27/2021. FINDINGS: Overlying casting material obscures fine bony details. Interval reduction of previously described ank le dislocation is normal anatomic alignment of the talotibial joint. Redemonstration of minimally dis placed distal fibular fracture, medial malleolus fracture, and posterior malleolus fracture. IMPRESSION: 1. Interval reduction of previous ankle dislocation with improved anatomic alignment. 2. Redemonstration of minimally displaced trimalleolar fracture.
[2021-09-27] MEDS: DEXTROSE 5% IN WATER 1,000 ML with SODIUM BICARB (1 MEQ/ML) 100 ML IV SCH (18:13)
[2021-09-27] MEDS: SODIUM CHLORIDE 0.9% 1,000 ML IV SCH (22:48)
[2021-09-28] MEDS: DEXTROSE 5% IN WATER 1,000 ML with SODIUM BICARB (1 MEQ/ML) 100 ML IV SCH ×2 (02:45→04:35)
[2021-09-28] MEDS: SODIUM CHLORIDE 0.9% 1,000 ML IV SCH (07:37)
--- NOTE | 2021-09-28 08:38 | FL ---
Fluoroscopy HISTORY: Open reduction internal fixation 5 seconds fluoroscopy time supplied to the referring clinician. 3 intraoperative C-arm images docume nt the procedure. See dictated report from orthopedic surgery.
[2021-09-28] MEDS ORDERED: ACETAMINOPHEN TAB 325 MG TAB PO PRN (08:52)
[2021-09-28] MEDS: PARoxetine 20 MG TAB PO SCH (09:29)
[2021-09-28] MEDS: buPROPion XL 300 MG TAB.ER.24H PO SCH (09:29)
[2021-09-28 09:34] LABS: Basophils % (A) 0 %; Eosinophils # (A) 0.1 k/uL (0-0.7); Eosinophils % (A) 1 %; HCT 36.4 % (34.0-46.0); HGB 11.6 gm/dL (11.4-16.0); Hypochromasia Slight; Lymphocytes # (A) 1.1 k/uL (1.0-4.8); Lymphocytes % (A) 15 %; MCH 31.2 pg (25.0-35.0); MCHC 31.8 g/dL (31.0-37.0); MCV 98.2 fL (80.0-100.0); Mean Platelet Volume 7.5; Monocytes # (A) 0.8 k/uL (0-1.0); Monocytes % (A) 11 %; Neutrophils # (A) 5.1 k/uL (1.3-7.7); Neutrophils % (A) 70 %; Platelet Count 281 k/uL (150-450); RBC 3.71 m/uL (3.80-5.40); WBC 7.3 k/uL (3.8-10.6)
[2021-09-28] MEDS: APIXABAN 5 MG TAB PO SCH ×2 (09:35→20:00)
[2021-09-28] MEDS: ASPIRIN 81 MG PO SCH (09:35)
[2021-09-28 10:14] LABS: Calcium 8.1 mg/dL (8.4-10.2); Potassium 3.4 mmol/L (3.5-5.1)
[2021-09-28] MEDS: POTASSIUM CHLORIDE ER 20 MEQ TAB.ER PO SCH ×2 (11:46→14:52)
--- NOTE | 2021-09-28 11:54 | P.CRDCN ---
History of Present Illness Consult date: 09/28/21 History of present illness: This is a 71-year-old female with history of hypertension, GERD, colon cancer, seizure disorder, [place], COPD Who Was Admitted to This Hospital in February 2021 with right brain stem thalamic stroke. Subsequently she had follow-up with Dr. Key and apparently had given monitor and stress test. She was diagnosed to have atrial fibrillation and was initiated on metoprolol succinate 25 mg along with anticoagulation therapy. Patient is now admitted to the hospital with dizziness and a fall resulting in fracture of the ankle. She claims she has been having dizziness whenever she stands, which usually stabilizes or resolves after a few seconds of standing still. She was having diarrhea and has to go to bathroom frequently. On this occasion. Patient has to keita without bleeding to stand stable and apparently felt dizzy and fell to the ground. She doesn't say that she lost consciousness. She is found to have fracture of the a nkle. Yesterday patient was taken to or to have surgery to fix the ankle fracture. However, patient apparently developed a cardiac arrhythmia and it appears that patient had a long pause. She needed some CPR. The details of the event are not clear. Patient had closed reduction and disease in ICU being monitored. She seemed to be in atrial fibrillation with relatively slow ventricular response in the 60s. Patient is otherwise complaining some chest soreness seemed to be related to CPR. At this point we will review the recent event monitor and also stress test reports. If she were to go home, she would have given monitor for the next week and have follow-up with Dr. Key as an outpatient. If we document, that patient has significant pauses or bradycardia, she may be having tachybradycardia syndrome and may require permanent pacemaker implantation. Her troponin is mildly elevated and a creatinine was about 1.5. We'll also get an echocardiogram to assess LV function and rule out any segmental wall motion defects. Further examination depend upon the clinical course. Past Medical History Past Medical History: Cancer, GERD/Reflux, GI Bleed, Hypertension, Musculoskeletal Disorder Additional Past Medical History / Comment(s): colon cancer 2016/right colectomy- had surg. & chemo. Right thamic brain stem CVA. COPD. Seizure. sciatica. Chronic atrial flutter History of Any Multi-Drug Resistant Organisms: None Reported Past Surgical History: Bowel Resection, Cholecystectomy, Orthopedic Surgery, Tonsillectomy Additional Past Surgical History / Comment(s): right wrist surgery post fracture, robotic colectomy Past Anesthesia/Blood Transfusion Reactions: No Reported Reaction Past Psychological History: Anxiety Smoking Status: Former smoker Past Alcohol Use History: Occasional Past Drug Use History: None Reported - Past Family History Mother Family Medical History: Cancer Additional Family Medical History / Comment(s): Bladder cancer. Sister(s) Family Medical History: Cancer Additional Family Medical History / Comment(s): Colon cancer. Medications and Allergies Home Medications Medication Instructions Recorded Confirmed Type ALPRAZolam [Xanax] 0.5 mg PO BID PRN 03/04/21 09/27/21 History Felodipine ER [Plendil] 5 mg PO DAILY 03/04/21 09/27/21 History Fluticasone/Umeclidin/Vilanter 1 puff INHALATION RT-DAILY 03/04/21 09/27/21 History [Trelegy Ellipta 100-62.5-25] Melatonin 10 mg PO HS 03/04/21 09/27/21 History PARoxetine HCL 40 mg PO DAILY 03/04/21 09/27/21 History Tolterodine ER [Detrol LA] 4 mg PO DAILY 03/04/21 09/27/21 History Vits A,C,E/Lutein/Minerals 1 tab PO DAILY 03/04/21 09/27/21 History [Ocuvite with Lutein Tablet] Aspirin 81 mg PO DAILY 03/06/21 09/27/21 Rx Atorvastatin [Lipitor] 40 mg PO HS #30 tablet 03/06/21 09/27/21 Rx Apixaban [Eliquis] 5 mg PO BID 09/27/21 09/27/21 History Diphenox-Atrop 2.5-0.025 mg 2 tab PO BID PRN 09/27/21 09/27/21 History [Lomotil] Gabapentin 300 mg PO HS 09/27/21 09/27/21 History Metoprolol Succinate [Toprol XL] 25 mg PO DAILY 09/27/21 09/27/21 History buPROPion HCL [Wellbutrin XL] 300 mg PO DAILY 09/27/21 09/27/21 History Allergies Allergy/AdvReac Type Severity Reaction Status Date / Time benazepril Allergy Anaphylaxis Verified 09/27/21 16:03 Penicillins Allergy Face Verified 09/27/21 16:03 swelling sertraline [From Zoloft] Allergy Face Verified 09/27/21 16:03 swelling Sulfa (Sulfonamide Allergy Face Verified 09/27/21 16:03 Antibiotics) swelling Physical Exam Vitals: Vital Signs Temp Pulse Pulse Resp BP Pulse Ox 09/28/21 11:00 70 19 99/56 89 L 09/28/21 10:00 69 21 118/55 09/28/21 09:00 68 21 119/42 90 L 09/28/21 08:03 92 L 09/28/21 08:00 98.2 F 77 21 118/62 94 L 09/28/21 07:30 61 17 142/92 94 L 09/28/21 07:00 58 L 20 137/66 94 L 09/28/21 06:30 61 19 118/80 95 09/28/21 06:00 56 L 14 110/82 94 L 09/28/21 05:30 55 L 18 111/59 95 09/28/21 05:00 64 18 117/37 95 09/28/21 04:30 60 15 105/59 94 L 09/28/21 04:00 98.4 F 61 15 112/85 94 L 09/28/21 03:30 57 L 16 105/55 91 L 09/28/21 03:00 62 14 119/47 92 L 09/28/21 02:30 66 14 121/79 95 09/28/21 02:00 72 20 97/51 95 09/28/21 01:30 63 14 113/58 93 L 09/28/21 01:00 56 L 16 97/59 95 09/28/21 00:30 60 13 117/60 93 L 09/28/21 00:00 97.8 F 58 L 14 128/59 97 09/27/21 23:30 64 14 90/64 95 09/27/21 23:00 59 L 16 115/75 96 09/27/21 22:30 61 22 104/65 95 09/27/21 22:00 61 14 101/58 95 09/27/21 21:30 66 16 108/60 93 L 09/27/21 21:00 62 14 102/57 96 09/27/21 20:42 96 09/27/21 20:30 61 12 105/68 96 09/27/21 20:00 98.2 F 65 21 109/58 97 09/27/21 19:00 66 18 96/39 85 L 09/27/21 18:45 63 16 106/57 94 L 09/27/21 18:30 61 16 95/79 94 L 09/27/21 18:15 64 16 95/51 96 09/27/21 18:00 64 16 99/35 97 09/27/21 17:45 60 18 76/45 96 09/27/21 17:30 59 L 16 89/59 96 09/27/21 17:15 64 19 94/53 91 L 09/27/21 17:00 97.5 F L 66 21 98/47 95 09/27/21 16:50 69 16 92 L 09/27/21 16:15 98.0 F 73 16 116/60 97 09/27/21 15:00 92 16 120/65 97 09/27/21 14:36 98.0 F 70 18 115/57 95 09/27/21 13:00 97.6 F 57 L 80 18 92/58 93 L Intake and Output 09/27/21 09/28/21 09/28/21 22:59 06:59 14:59 Intake Total 500 1800 810 Output Total 0 650 350 Balance 500 1150 460 Intake: IV 300 1800 810 Dextrose 5% in Water 1, 300 800 500 000 ml @ 100 mls/hr IV . Q11H MELINA with Sodium Bicarb (1 Meq/ml) 100 ml Rx#:[id number] Sodium Chloride 0.9% 1, 1000 310 000 ml @ 125 mls/hr IV . Q8H MELINA Rx#:[id number] Intake, IV Titration 200 Amount Dextrose 5% in Water 1, 200 000 ml @ 100 mls/hr IV . Q11H MELINA with Sodium Bicarb (1 Meq/ml) 100 ml Rx#:[id number] Output: Urine 0 325 350 Post Void Residual 325 Other: # Voids 0 0 Weight 79.379 kg 82 kg GENERAL EXAM: Patient is alert and oriented and doesn't appear to be in any acute distress HEENT: Normocephalic. Normal reaction of pupils, equal size, normal range of extraocular motion. No erythema or exudates in the throat. NECK: No masses, no nuchal rigidity. CHEST: No chest wall deformity. LUNGS: Equal air entry with no crackles or wheeze. HEART: S1 and S2 normal . Heart is irregular ABDOMEN: No hepatosplenomegaly, normal bowel sounds, no guarding or rigidity. SKIN: No rashes CENTRAL NERVOUS SYSTEM: No focal deficits. EXTREMITIES: No cyanosis, clubbing or edema. Results 09/28/21 09:03 09/28/21 09:03 Cardiac Enzymes 09/27/21 09/27/21 09/27/21 Range/Units 13:51 13:51 16:59 AST 23 (14-36) U/L CK-MB (CK-2) 4.2 H (0.0-2.4) ng/mL Troponin I 0.026 (0.000-0.034) ng/mL 09/27/21 Range/Units 23:35 AST (14-36) U/L CK-MB (CK-2) (0.0-2.4) ng/mL Troponin I 0.035 H* (0.000-0.034) ng/mL CBC 09/27/21 09/28/21 Range/Units 13:51 09:03 WBC 12.9 H 7.3 (3.8-10.6) k/uL RBC 4.59 3.71 L (3.80-5.40) m/uL Hgb 13.8 11.6 (11.4-16.0) gm/dL Hct 44.3 36.4 (34.0-46.0) % Plt Count 286 281 (150-450) k/uL Comprehensive Metabolic Panel 09/27/21 09/28/21 Range/Units 13:51 09:03 Sodium 140 139 (137-145) mmol/L Potassium 4.1 3.4 L (3.5-5.1) mmol/L Chloride 114 H 108 H (98-107) mmol/L Carbon Dioxide 14 L 22 (22-30) mmol/L BUN 24 H 18 H (7-17) mg/dL Creatinine 1.50 H 1.18 H (0.52-1.04) mg/dL Glucose 103 H 125 H (74-99) mg/dL Calcium 8.6 8.1 L (8.4-10.2) mg/dL AST 23 (14-36) U/L ALT 14 (4-34) U/L Alkaline Phosphatase 82 (38-126) U/L Total Protein 6.3 (6.3-8.2) g/dL Albumin 3.7 (3.5-5.0) g/dL Current Medications Generic Name Dose Route Start Last Admin Trade Name Freq PRN Reason Stop Dose Admin Acetaminophen 650 mg 09/28/21 08:52 Acetaminophen Tab 325 Mg Tab PO Q6HR PRN Fever and/ or Pain Apixaban 5 mg 09/28/21 09:15 09/28/21 09:35 Apixaban 5 Mg Tab PO 5 mg BID MELINA Administration Protocol Aspirin 81 mg 09/28/21 09:15 09/28/21 09:35 Aspirin 81 Mg PO 81 mg DAILY MELINA Administration Atorvastatin Calcium 40 mg 09/28/21 21:00 Atorvastatin 40 Mg Tab PO HS MELINA Bupropion HCl 300 mg 09/28/21 09:15 09/28/21 09:29 Bupropion Xl 300 Mg Tab.Er.24h PO 300 mg DAILY MELINA Administration Paroxetine HCl 40 mg 09/28/21 09:00 09/28/21 09:29 Paroxetine 20 Mg Tab PO 40 mg DAILY MELINA Administration Potassium Chloride 20 meq 09/28/21 12:00 09/28/21 11:46 Potassium Chloride Er 20 Meq Tab.Er PO 09/28/21 13:01 20 meq Q1HR MELINA Administration Protocol Intake and Output 09/27/21 09/28/21 09/28/21 22:59 06:59 14:59 Intake Total 500 1800 810 Output Total 0 650 350 Balance 500 1150 460 Intake: IV 300 1800 810 Dextrose 5% in Water 1, 300 800 500 000 ml @ 100 mls/hr IV . Q11H MELINA with Sodium Bicarb (1 Meq/ml) 100 ml Rx#:[id number] Sodium Chloride 0.9% 1, 1000 310 000 ml @ 125 mls/hr IV . Q8H MELINA Rx#:[id number] Intake, IV Titration 200 Amount Dextrose 5% in Water 1, 200 000 ml @ 100 mls/hr IV . Q11H MELINA with Sodium Bicarb (1 Meq/ml) 100 ml Rx#:[id number] Output: Urine 0 325 350 Post Void Residual 325 Other: # Voids 0 0 Weight 79.379 kg 82 kg 09/28/21 09:03 09/28/21 09:03 EKG Interpretations (text) Atrial flutter with slow ventricular response Assessment and Plan (1) Atrial flutter Current Visit: Yes Status: Acute Code(s): I48.92 - UNSPECIFIED ATRIAL FLUTTER SNOMED Code(s): 3296167 (2) Dizziness Current Visit: Yes Status: Acute Code(s): R42 - DIZZINESS AND GIDDINESS SNOMED Code(s): 257788049 (3) History of TIA (transient ischemic attack) Current Visit: Yes Status: Acute Code(s): Z86.73 - PRSNL HX OF TIA (TIA), AND CEREB INFRC W/O RESID DEFICITS SNOMED Code(s): 091087375 Plan: Patient is mildly abnormal troponin. We'll go ahead and do echocardiogram to assess LV function. We'll continue to monitor trend of the troponins. Further recommendation depending upon the clinical course. If patient were to go home, patient will have an event monitor
[2021-09-28] MEDS: ALPRAZolam 0.5 MG TAB PO PRN ×2 (13:12→21:41)
--- NOTE | 2021-09-28 13:37 | P.PN ---
Progress Note - Text Progress Note Date: 09/28/21 - Chief Complaint Right heel injury - History of Present Illness History presenting complaint: 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 Chronic stable medical conditions include GERD, hypertension, colon cancer, seizure, sciatica, COPD. patient was here in the hospital in February 2021 with right brainstem thalamic stroke. Patient has been noticing last few days that she gets dizzy when she stands up. She's been having anywhere from 3-4 BMs a day. Last few days. Oral intake has been fair. Quite often times she will not have breakfast and lunch and just have her dinner. Patient has known atrial flutter fibrillation for which she is on eliquis. Did not take her medication this morning. Patient got a bit dizzy and lost her balance injuring her right ankle. In the ER x-ray studies confirmed right ankle fracture. No chest pain or palpitation. September 28: Patient was taken to the OR yesterday. Was in atrial flutter. In the perioperative period patient went into a asystole. Received about 1 minute of CPR. Came back. Surgery was postponed. Splint was placed. Patient brought to the ICU. Small troponin leak. Currently sitting up in bed. Eating lunch. Remains in atrial flutter. Being followed by cardiology Active Medications Acetaminophen (Acetaminophen Tab 325 Mg Tab) 650 mg PO Q6HR PRN PRN Reason: Fever and/ or Pain Alprazolam (Alprazolam 0.5 Mg Tab) 0.5 mg PO BID PRN PRN Reason: Anxiety Last Admin: 09/28/21 13:12 Dose: 0.5 mg Documented by: Apixaban (Apixaban 5 Mg Tab) 5 mg PO BID [facility]; Protocol Last Admin: 09/28/21 09:35 Dose: 5 mg Documented by: Aspirin (Aspirin 81 Mg) 81 mg PO DAILY [facility] Last Admin: 09/28/21 09:35 Dose: 81 mg Documented by: Atorvastatin Calcium (Atorvastatin 40 Mg Tab) 40 mg PO HS [facility] Bupropion HCl (Bupropion Xl 300 Mg Tab.Er.24h) 300 mg PO DAILY [facility] Last Admin: 09/28/21 09:29 Dose: 300 mg Documented by: Gabapentin (Gabapentin 300 Mg Cap) 300 mg PO HS [facility] Paroxetine HCl (Paroxetine 20 Mg Tab) 40 mg PO DAILY [facility] Last Admin: 09/28/21 09:29 Dose: 40 mg Documented by: Past medical history to include: Colon cancer treated with chemotherapy and surgery in 2016, sciatica, essential hypertension, GERD, COPD. Acute right brainstem thalamic stroke in February 2021 Social history: . Smoked less than a pack a day for 45 years stopped in 2017. Alcohol occasionally. Family history: Bladder cancer Physical examination: VITAL SIGNS: 98, 64, 16, 124/59, 95% on 4 L GENERAL: Reclining in bed, awake, tired EYES: Pupils equal. Conjunctiva normal. HEENT: External appearance of nose and ears normal, oral cavity grossly normal. NECK: JVD not raised; masses not palpable. HEART: Heart sounds irregular; no edema. LUNGS: Respiratory rate normal; decreased breath sounds. ABDOMEN: Soft, nontender, liver spleen not palpable, no masses palpable. PSYCH: Alert and oriented x3; mood and affect normal. MUSCULAR skeletal: Evidence of OA . Dressing right ankle INVESTIGATIONS, reviewed in the clinical context: September 28: White count 7.3 hemoglobin 11.6 potassium 3.4 BUN 18 creatinine 1.18 Troponin I 0.026, 0.035 White count 12.9 hemoglobin 13.8 platelets 286 potassium 4.1 BUN 24 creatinine 1.5 EKG tracing personally reviewed by me atrial flutter rate around 80 Chest x-ray film personally reviewed by me-some hyperinflation. Atelectasis. X-ray complete right: Unstable trimalleolar fracture subluxation right ankle Previous labs: February 2021 March 06: Creatinine 1.07 2-D echocardiogram: Moderate concentric LVH, EF 55-60% Assessment and plan: -Acute right ankle trimalleolar fracture with some basic cessation secondary to fall Close reduction and long leg splint. Full surgery postponed. By Dr. John -COPD in a X smoker trelegy -Primary osteoarthritis Pain medications as needed -Hypertensive heart disease -Chronic urinary stress incontinence Detrol LA 4 mg daily -Troponin leak likely from hemodynamic mismatch from. Of asystole Follow with cardiology -Anxiety depression not otherwise specified Xanax 0.5 mg twice a day when necessary, Paxil 40 mg daily -Essential hypertension Monitor blood pressure -Persistent atrial flutter fibrillation: Rate controlled Resume eliquis. -Acute kidney injury from patient having diarrhea: Better. Admission creatinine 1.5 -Acute metabolic acidosis from diarrhea: Resolved Care was discussed with the patient and also with the on the phone. Patient is back on eliquis. Telemetry. Resume Detrol LA. Continue with Paxil Xanax. Neurontin.. Follow with cardiology
--- NOTE | 2021-09-28 14:23 | P.PN ---
Subjective Progress Note Date: 09/28/21 This patient is a 71- year old female who is status-post right ankle closed reduction and splint application for bimalleolar ankle fracture dislocation on 09/27/21. Patient went into an unstable cardiac arrhythmia in the OR and was admitted to the ICU following the procedure. Patient is examined bedside in the ICU this morning. She states the pain in in her right ankle is well-controlled at this time. Her splint is comfortable. There are no complaints or concerns. Vital signs stable. Objective - Vital Signs Vital signs: Vital Signs Temp 98.0 F 09/28/21 12:00 Pulse 64 09/28/21 12:00 Resp 16 09/28/21 12:00 BP 124/59 09/28/21 12:00 Pulse Ox 95 09/28/21 12:00 Intake & Output 09/27/21 09/28/21 09/28/21 18:59 06:59 18:59 Intake Total 200 2100 830 Output Total 0 650 850 Balance 200 1450 -20 Weight 79.379 kg 82 kg Intake: IV 2100 830 Dextrose 5% in Water 1, 1100 500 000 ml @ 100 mls/hr IV . Q11H MELINA with Sodium Bicarb (1 Meq/ml) 100 ml Rx#:[id number] Sodium Chloride 0.9% 1, 1000 330 000 ml @ 125 mls/hr IV . Q8H MELINA Rx#:[id number] Intake, IV Titration 200 Amount Dextrose 5% in Water 1, 200 000 ml @ 100 mls/hr IV . Q11H MELINA with Sodium Bicarb (1 Meq/ml) 100 ml Rx#:[id number] Output: Urine 0 325 850 Post Void Residual 325 Other: # Voids 0 # Bowel Movements 1 - Exam On examination, patient is sitting up in bed in no apparent distress. She is alert and oriented 3. On inspection of the right ankle, there is a clean, dry, intact bulky Purcell splint in place. The visible portion of the toes are warm and well-perfused with brisk capillary refill distally. Patient is able to wiggle toes appropriately. - Labs CBC & Chem 7: 09/28/21 09:03 09/28/21 09:03 Labs: Abnormal Lab Results - Last 24 Hours (Table) 09/27/21 09/27/21 09/27/21 Range/Units 13:51 14:08 23:35 RBC (3.80-5.40) m/uL Potassium (3.5-5.1) mmol/L Chloride 114 H (98-107) mmol/L Carbon Dioxide 14 L (22-30) mmol/L BUN 24 H (7-17) mg/dL Creatinine 1.50 H (0.52-1.04) mg/dL Glucose 103 H (74-99) mg/dL Calcium (8.4-10.2) mg/dL Troponin I 0.035 H* (0.000-0.034) ng/mL Urine Protein Trace H (Negative) Ur Leukocyte Esterase Small H (Negative) Urine Bacteria Rare H (None) /hpf Hyaline Casts 14 H (0-2) /lpf Urine Mucus Rare H (None) /hpf 09/28/21 09/28/21 09/28/21 Range/Units 09:03 09:03 12:34 RBC 3.71 L (3.80-5.40) m/uL Potassium 3.4 L (3.5-5.1) mmol/L Chloride 108 H (98-107) mmol/L Carbon Dioxide (22-30) mmol/L BUN 18 H (7-17) mg/dL Creatinine 1.18 H (0.52-1.04) mg/dL Glucose 125 H (74-99) mg/dL Calcium 8.1 L (8.4-10.2) mg/dL Troponin I 0.049 H* (0.000-0.034) ng/mL Urine Protein (Negative) Ur Leukocyte Esterase (Negative) Urine Bacteria (None) /hpf Hyaline Casts (0-2) /lpf Urine Mucus (None) /hpf Assessment and Plan Assessment: Status-post right ankle closed reduction and splint application for bimalleolar ankle fracture dislocation on 09/27/21. Plan: - Strict non-weight bearing right lower extremity. - Keep splint clean, dry, intact. Do not remove splint. - Keep right ankle elevated for swelling control. - Medical management per internal medicine, cardiology. - We have no plans for surgical intervention during this hospital stay. Following discharge, patient should follow-up with Dr. John in one week in the office.
--- NOTE | 2021-09-28 14:25 | P.CNPUL ---
History of Present Illness Consult date: 09/28/21 History of present illness: this is a 71-year-old female patient With known history of COPD and various other comorbidities including colon cancer, colectomy and previous current chemotherapy and the patient has been in remission. The patient was also hospitalized back in February 2021 for a right sided brainstem thalamic stroke. The patient was found to have atrial flutter and the patient admitted on long- term anticoagulation on outpatient basis. Note that the patient came into the hospital after she had a fall at home and she had a right sided bimalleolar an kle fracture. Based on that, the patient was taken to the operating room yesterday and the patient was found to have significant amount of swelling where closed reduction was done in the cast/splint was applied pending further/future surgical repair. Noted the patient was taken to the operating room. She was atrial flutter. I believe intraoperatively, the patient went into a period of asystole and the patient required CPR for a total of 1 minutes. I believe the patient was not given any epinephrine or atropine. The patient will receive CPR. Surgery was postponed and the splint was applied and the patient was sent to the intensive care unit. Noted the patient has had a recent cardiac evaluation including a recent cardiac stress of that was done through [facility] and she was told that the results were within normal limits. In any rate, the patient is currently in the intensive care unit. She did not require any pressors. She is on 4 L of oxygen by nasal cannula. She had developed an acute kidney injury and the patient also has a component of non-anion gap metabo lic acidosis which is being corrected. The patient is awake and alert following commands and answering questions appropriately. She is having some soreness in her chest related to the CPR. The cardiac rhythm is still atrial flutter. No ST segment elevation or depression. Troponins are 0.02, 0.03 and 0.04 respectively 3. Creatinine is at 1.1 after being as high as 1.5 from yesterday. Serum bicarb is at 22 from 14 from yesterday. The hemoglobin currently is at 11.6 with a white cell count of 7.3. Review of Systems Constitutional: Reports fatigue, Reports weakness Eyes: denies as per HPI, denies blurred vision, denies bulging eye, denies decreased vision, denies diplopia, denies discharge, denies dry eye, denies irritation, denies itching, denies pain, denies photophobia, denies loss of peripheral vision, denies loss of vision, denies tunnel vision/blind spots Ears: deny: decreased hearing, ear discharge, earache, tinnitus Ears, nose, mouth and throat: Reports as per HPI Breasts: absent: as per HPI, change in shape, gynecomastia, masses, nipple discharge, pain, skin changes, swelling Cardiovascular: Reports as per HPI Respiratory: Reports as per HPI Gastrointestinal: Reports as per HPI, Reports diarrhea Genitourinary: Reports as per HPI Menstruation: Reports as per HPI Musculoskeletal: Reports fractures Musculoskeletal: right: ankle pain, ankle stiffness, ankle swelling Integumentary: Reports as per HPI Neurological: Reports as per HPI Psychiatric: Reports as per HPI Endocrine: Reports as per HPI Hematologic/Lymphatic: Reports as per HPI Allergic/Immunologic: Reports as per HPI Past Medical History Past Medical History: Cancer, GERD/Reflux, GI Bleed, Hypertension, Musculoskeletal Disorder Additional Past Medical History / Comment(s): colon cancer 2016/right colectomy- had surg. & chemo. Right thamic brain stem CVA. COPD. Seizure. sciatica. Chronic atrial flutter History of Any Multi-Drug Resistant Organisms: None Reported Past Surgical History: Bowel Resection, Cholecystectomy, Orthopedic Surgery, Tonsillectomy Additional Past Surgical History / Comment(s): right wrist surgery post fracture, robotic colectomy Past Anesthesia/Blood Transfusion Reactions: No Reported Reaction Past Psychological History: Anxiety Smoking Status: Former smoker Past Alcohol Use History: Occasional Past Drug Use History: None Reported - Past Family History Mother Family Medical History: Cancer Additional Family Medical History / Comment(s): Bladder cancer. Sister(s) Family Medical History: Cancer Additional Family Medical History / Comment(s): Colon cancer. Medications and Allergies Home Medications Medication Instructions Recorded Confirmed Type ALPRAZolam [Xanax] 0.5 mg PO BID PRN 03/04/21 09/27/21 History Felodipine ER [Plendil] 5 mg PO DAILY 03/04/21 09/27/21 History Fluticasone/Umeclidin/Vilanter 1 puff INHALATION RT-DAILY 03/04/21 09/27/21 History [Trelegy Ellipta 100-62.5-25] Melatonin 10 mg PO HS 03/04/21 09/27/21 History PARoxetine HCL 40 mg PO DAILY 03/04/21 09/27/21 History Tolterodine ER [Detrol LA] 4 mg PO DAILY 03/04/21 09/27/21 History Vits A,C,E/Lutein/Minerals 1 tab PO DAILY 03/04/21 09/27/21 History [Ocuvite with Lutein Tablet] Aspirin 81 mg PO DAILY 03/06/21 09/27/21 Rx Atorvastatin [Lipitor] 40 mg PO HS #30 tablet 03/06/21 09/27/21 Rx Apixaban [Eliquis] 5 mg PO BID 09/27/21 09/27/21 History Diphenox-Atrop 2.5-0.025 mg 2 tab PO BID PRN 09/27/21 09/27/21 History [Lomotil] Gabapentin 300 mg PO HS 09/27/21 09/27/21 History Metoprolol Succinate [Toprol XL] 25 mg PO DAILY 09/27/21 09/27/21 History buPROPion HCL [Wellbutrin XL] 300 mg PO DAILY 09/27/21 09/27/21 History Allergies Allergy/AdvReac Type Severity Reaction Status Date / Time benazepril Allergy Anaphylaxis Verified 09/27/21 16:03 Penicillins Allergy Face Verified 09/27/21 16:03 swelling sertraline [From Zoloft] Allergy Face Verified 09/27/21 16:03 swelling Sulfa (Sulfonamide Allergy Face Verified 09/27/21 16:03 Antibiotics) swelling Physical Exam Vitals: Vital Signs Temp Pulse Pulse Resp BP Pulse Ox 09/28/21 08:03 92 L 09/28/21 08:00 98.2 F 77 23 118/62 94 L 09/28/21 07:30 61 17 142/92 94 L 09/28/21 07:00 58 L 20 137/66 94 L 09/28/21 06:30 61 19 118/80 95 09/28/21 06:00 56 L 14 110/82 94 L 09/28/21 05:30 55 L 18 111/59 95 09/28/21 05:00 64 18 117/37 95 09/28/21 04:30 60 15 105/59 94 L 09/28/21 04:00 98.4 F 61 15 112/85 94 L 09/28/21 03:30 57 L 16 105/55 91 L 09/28/21 03:00 62 14 119/47 92 L 09/28/21 02:30 66 14 121/79 95 09/28/21 02:00 72 20 97/51 95 09/28/21 01:30 63 14 113/58 93 L 09/28/21 01:00 56 L 16 97/59 95 09/28/21 00:30 60 13 117/60 93 L 09/28/21 00:00 97.8 F 58 L 14 128/59 97 09/27/21 23:30 64 14 90/64 95 09/27/21 23:00 59 L 16 115/75 96 09/27/21 22:30 61 22 104/65 95 09/27/21 22:00 61 14 101/58 95 09/27/21 21:30 66 16 108/60 93 L 09/27/21 21:00 62 14 102/57 96 09/27/21 20:42 96 09/27/21 20:30 61 12 105/68 96 09/27/21 20:00 98.2 F 65 21 109/58 97 09/27/21 19:00 66 18 96/39 85 L 09/27/21 18:45 63 16 106/57 94 L 09/27/21 18:30 61 16 95/79 94 L 09/27/21 18:15 64 16 95/51 96 09/27/21 18:00 64 16 99/35 97 09/27/21 17:45 60 18 76/45 96 09/27/21 17:30 59 L 16 89/59 96 09/27/21 17:15 64 19 94/53 91 L 09/27/21 17:00 97.5 F L 66 21 98/47 95 09/27/21 16:50 69 16 92 L 09/27/21 16:15 98.0 F 73 16 116/60 97 09/27/21 15:00 92 16 120/65 97 09/27/21 14:36 98.0 F 70 18 115/57 95 09/27/21 13:00 97.6 F 57 L 80 18 92/58 93 L Intake and Output 09/27/21 09/28/21 09/28/21 22:59 06:59 14:59 Intake Total 500 1800 450 Output Total 0 650 350 Balance 500 1150 100 Intake: IV 300 1800 450 Dextrose 5% in Water 1, 300 800 200 000 ml @ 100 mls/hr IV . Q11H MELINA with Sodium Bicarb (1 Meq/ml) 100 ml Rx#:[id number] Sodium Chloride 0.9% 1, 1000 250 000 ml @ 125 mls/hr IV . Q8H MELINA Rx#:[id number] Intake, IV Titration 200 Amount Dextrose 5% in Water 1, 200 000 ml @ 100 mls/hr IV . Q11H MELINA with Sodium Bicarb (1 Meq/ml) 100 ml Rx#:[id number] Output: Urine 0 325 350 Post Void Residual 325 Other: # Voids 0 0 Weight 79.379 kg 82 kg GENERAL: Reclining in bed, awake, tired, no active signs of respiratory distress and the patient is currently on 4 L of O2 by nasal cannula Head exam was generally normal. There was no scleral icterus or corneal arcus. Mucous membranes were moist. EYES: Pupils equal. Conjunctiva normal. HEENT: External appearance of nose and ears normal, oral cavity grossly normal. NECK: JVD not raised; masses not palpable. HEART: Heart sounds irregular; no edema. LUNGS: Respiratory rate normal; decreased breath sounds. ABDOMEN: Soft, nontender, liver spleen not palpable, no masses palpable. PSYCH: Alert and oriented x3; mood and affect normal. MUSCULAR skeletal: Evidence of OA . Dressing right ankle, the patient has a right lower extremity splint Examination of the extremities revealed easily palpable radial, femoral and pedal pulses. There was no cyanosis, clubbing or edema.. The patient has a right lower extremity foot splint applied. Results - Laboratory Findings CBC and BMP: 09/28/21 09:03 09/28/21 09:03 Abnormal lab findings: Abnormal Labs 09/27/21 09/27/21 09/27/21 13:51 13:51 13:51 WBC 12.9 H Neutrophils # 10.7 H Lymphocytes # 0.8 L Chloride 114 H Carbon Dioxide 14 L BUN 24 H Creatinine 1.50 H Glucose 103 H CK-MB (CK-2) 4.2 H Troponin I Urine Protein Ur Leukocyte Esterase Urine Bacteria Hyaline Casts Urine Mucus 09/27/21 09/27/21 14:08 23:35 WBC Neutrophils # Lymphocytes # Chloride Carbon Dioxide BUN Creatinine Glucose CK-MB (CK-2) Troponin I 0.035 H* Urine Protein Trace H Ur Leukocyte Esterase Small H Urine Bacteria Rare H Hyaline Casts 14 H Urine Mucus Rare H - Diagnostic Findings Chest x-ray: image reviewed Assessment and Plan Plan: 1 acute cardiac arrest, asystole, exact cause is not clear. The exact circumstances for his cardiac arrest is not clear to me at this point. I believe this occurred preoperatively, it could have been a vagal response. Troponins are minimally elevated at this point in time the patient is free of any chest pain. No acute ST segment elevation or depression the patient continues to be in atrial flutter. Ship'S Surveyor consult on the patient 2 acute the right ankle bimalleolar fracture, the patient underwent closed reduction and placement of the splint 3 COPD 4 history of colon cancer 5 chronic anxiety/depression 6 hypertension 7 chronic atrial flutter 8 acute kidney injury, improving and the creatinine is down to 1.1 9 non-anion gap metabolic acidosis, currently on a bicarb infusion for replacement of the bicarb deficit and this could have been related to the diarrhea that the patient was having on outpatient basis 10 degenerative arthritis 11 hypertension Plan Cardiology consultation regarding his cardiac arrest Please obtain records from [facility] regarding echocardiogram and cardiac stress test that was done on outpatient basis May possibly need a cardiac catheterization Discontinue the bicarb infusion Monitor the serum bicarbonate the renal function This is on medication with exception of the beta blockers The patient needs to go back on anticoagulation with Eliquis 5 mg by mouth twice a day Resume Paxil, Wellbutrin, and Xanax abuse on as needed basis Will monitor the cardiac rhythm another 24 hours here in the intensive care unit and will continue to follow.
[2021-09-28] MEDS: ATORVASTATIN 40 MG TAB PO SCH (20:00)
[2021-09-28] MEDS: GABAPENTIN 300 MG CAP PO SCH (20:00)
[2021-09-28] MEDS: SYMBICORT 160-4.5 MCG INHALER INHALATION SCH (20:46)
--- NOTE | 2021-09-29 07:32 | ECHOF ---
Referral Reason:Abnormal troponin MEASUREMENTS -------- HEIGHT: 162.6 cm WEIGHT: 81.6 kg BP: 118/49 RVIDd: 3.5 cm (< 3.3) IVSd: 1.7 cm (0.6 - 1.1) LVIDd: 4.1 cm (3.9 - 5.3) LVPWd: 1.2 cm (0.6 - 1.1) IVSs: 1.5 cm LVIDs: 2.6 cm LVPWs: 2.0 cm LAESV Index (A-L): 37.31 ml/m MV E Abhay: 1.83 m/s MV DecT: 118 ms MV A Abhay: 1.06 m/s MV E/A Ratio: 1.73 AV maxP.97 mmHg AV meanP.13 mmHg RAP: 5.00 mmHg RVSP: 36.87 mmHg FINDINGS -------- Atrial fibrillation. This was a technically difficult study with suboptimal parasternal views. Patient was unable to tur n on her left side due to leg injury. The left ventricular size is normal. There is severe concentric left ventricular hypertrophy. Ove rall left ventricular systolic function is normal with, an EF between 55 - 60 %. Possible LVOT Obst ruction. The right ventricle is mildly enlarged. LA is moderately dilated 34-39 ml/m2 The right atrial size is normal. Interatrial and interventricular septum intact. There is mild aortic valve sclerosis. There is no evidence of aortic regurgitation. There is mild aortic stenosis present. The maximum velocity across the aortic valve is 3.12m/s. Peak/mean grad ient across the Aortic Valve is 38.97mmHg / 19.13mmHg. Mild mitral annular calcification present. Moderate mitral regurgitation is present. Mild tricuspid regurgitation present. There is mild pulmonary hypertension. The right ventricular systolic pressure, as measured by Doppler, is 36.87mmHg. The pulmonic valve was not well visualized. There is no pulmonic regurgitation present. IVC Not well visulized. There is no pericardial effusion. CONCLUSIONS -------- 1. There is severe concentric left ventricular hypertrophy. 2. Overall left ventricular systolic function is normal with, an EF between 55 - 60 %. 3. Possible LVOT Obstruction. 4. The right ventricle is mildly enlarged. 5. LA is moderately dilated 34-39 ml/m2 6. There is mild aortic stenosis present. 7. The maximum velocity across the aortic valve is 3.12m/s. 8. Peak/mean gradient across the Aortic Valve is 38.97mmHg / 19.13mmHg. 9. Moderate mitral regurgitation is present. 10. Mild tricuspid regurgitation present. 11. There is mild pulmonary hypertension. ELECTRICAL CONTRACTOR: Jennifer Nina RDCS
[2021-09-29 08:08] LABS: Basophils % (A) 0 %; Eosinophils # (A) 0.2 k/uL (0-0.7); Eosinophils % (A) 2 %; HCT 38.2 % (34.0-46.0); Hypochromasia Moderate; Lymphocytes # (A) 1.1 k/uL (1.0-4.8); Lymphocytes % (A) 13 %; MCH 31.6 pg (25.0-35.0); MCHC 31.5 g/dL (31.0-37.0); MCV 100.5 fL (80.0-100.0); Mean Platelet Volume 7.6; Monocytes # (A) 0.8 k/uL (0-1.0); Monocytes % (A) 9 %; Neutrophils # (A) 6.6 k/uL (1.3-7.7); Neutrophils % (A) 74 %; Platelet Count 246 k/uL (150-450); RDW 13.9 % (11.5-15.5); WBC 8.9 k/uL (3.8-10.6)
[2021-09-29 08:17] LABS: Calcium 8.5 mg/dL (8.4-10.2)
[2021-09-29 08:24] LABS: Potassium 4.3 mmol/L (3.5-5.1)
[2021-09-29] MEDS: SYMBICORT 160-4.5 MCG INHALER INHALATION SCH ×2 (08:27→19:33)
[2021-09-29] MEDS: APIXABAN 5 MG TAB PO SCH (08:42)
[2021-09-29] MEDS: ASPIRIN 81 MG PO SCH (08:42)
[2021-09-29] MEDS: OXYBUTYNIN 10 MG TAB.ER.24 PO SCH (08:43)
[2021-09-29] MEDS: PARoxetine 20 MG TAB PO SCH (08:43)
[2021-09-29] MEDS: buPROPion XL 300 MG TAB.ER.24H PO SCH (08:44)
[2021-09-29] MEDS ORDERED: METOPROLOL SUCCINATE (ER) 25 MG TAB.ER.24H PO SCH (09:00)
[2021-09-29] MEDS ORDERED: HEPARIN SODIUM 1,000 UN/ML (10ML VL) IV PRN (11:08)
--- NOTE | 2021-09-29 11:34 | P.PN ---
Subjective Progress Note Date: 09/29/21 This is a 71-year-old female with history of hypertension, GERD, colon cancer, seizure disorder, [place], COPD Who Was Admitted to This Hospital in February 2021 with right brain stem thalamic stroke. Subsequently she had follow-up with Dr. Key and apparently had given monitor and stress test. She was diagnosed to have atrial fibrillation and was initiated on metoprolol succinate 25 mg along with anticoagulation therapy. Patient is now admitted to the hospital with dizziness and a fall resulting in fracture of the ankle. She claims she has been having dizziness whenever she stands, which usually stabilizes or resolves after a few seconds of standing still. She was having diarrhea and has to go to bathroom frequently. On this occasion. Patient has to keita without bleeding to stand stable and apparently felt dizzy and fell to the ground. She doesn't say that she lost consciousness. She is found to have fracture of the ankle. Yesterday patient was taken to or to have surgery to fix the ankle fracture. However, patient apparently developed a cardiac arrhythmia and it appears that patient had a long pause. She needed some CPR. The details of the event are not clear. Patient had closed reduction and disease in ICU being monitored. She seemed to be in atrial fibrillation with relatively slow ventricular response in the 60s. Patient is otherwise complaining some chest soreness seemed to be related to CPR. At this point we will review the recent event monitor and also stress test reports. If she were to go home, she would have given monitor for the next week and have follow-up with Dr. Key as an outpatient. If we document, that patient has significant pauses or bradycardia, she may be having tachybradycardia syndrome and may require permanent pacemaker implantation. Her troponin is mildly elevated and a creatinine was about 1.5. We'll also get an echocardiogram to assess LV function and rule out any segmental wall motion defects. Further examination depend upon the clinical course. 09/29/2021: Patient seemed to be relatively stable. She remains in atrial flutter with controlled and corresponds. No significant pauses or arrhythmias noted. Echo Cardigan showed normal LV function. Troponin values are mildly elevated. Reviewed her previous event monitor, this showed evidence of paroxysmal atrial fibrillation and an episode of nonsustained V. tach. Her stress test showed a fixed defect in the inferior wall without any reversible ischemia. In view of abnormal troponins and also history of nonsustained V. tach, contacted Dr. Key regarding further evaluation with cardiac catheterization. Patient is currently on anticoagulation, oral. Will hold oral anticoagulation and initiated on heparin drip. Patient is being scheduled for cardiac cath to be done by Dr. Key on . Further recommend she'll depend upon the findings. Meanwhile rest of the medication be continued. Beta blocks are being held because of bradycardia Objective - Vital Signs Vital signs: Vital Signs Temp 99.1 F 09/29/21 04:00 Pulse 67 09/29/21 10:00 Resp 19 09/29/21 10:00 BP 138/75 09/29/21 10:00 Pulse Ox 94 L 09/29/21 10:00 Intake & Output 09/28/21 09/29/21 09/29/21 18:59 06:59 18:59 Intake Total 870 240 Output Total 1400 900 350 Balance -530 -900 -110 Intake: IV 870 Dextrose 5% in Water 1, 500 000 ml @ 100 mls/hr IV . Q11H MELINA with Sodium Bicarb (1 Meq/ml) 100 ml Rx#:[id number] Sodium Chloride 0.9% 1, 370 000 ml @ 125 mls/hr IV . Q8H MELINA Rx#:[id number] Oral 240 Output: Urine 1400 900 350 Other: # Voids 1 0 # Bowel Movements 1 1 - Exam GENERAL EXAM: Patient is alert and oriented and doesn't appear to be in any acute distress HEENT: Normocephalic. Normal reaction of pupils, equal size, normal range of extraocular motion. No erythema or exudates in the throat. NECK: No masses, no nuchal rigidity. CHEST: No chest wall deformity. LUNGS: Equal air entry with no crackles or wheeze. HEART: S1 and S2 normal . Irregular heart sounds. Systolic murmur in the aortic area ABDOMEN: No hepatosplenomegaly, normal bowel sounds, no guarding or rigidity. SKIN: No rashes CENTRAL NERVOUS SYSTEM: No focal deficits. EXTREMITIES: Right foot is wrapped - Labs CBC & Chem 7: 09/29/21 07:35 09/29/21 07:35 Labs: Abnormal Lab Results - Last 24 Hours (Table) 09/28/21 09/28/21 09/29/21 Range/Units 12:34 15:56 07:35 MCV 100.5 H (80.0-100.0) fL Chloride (98-107) mmol/L Glucose (74-99) mg/dL Troponin I 0.049 H* 0.064 H* (0.000-0.034) ng/mL 09/29/21 Range/Units 07:35 MCV (80.0-100.0) fL Chloride 108 H (98-107) mmol/L Glucose 128 H (74-99) mg/dL Troponin I (0.000-0.034) ng/mL Assessment and Plan (1) Atrial flutter Current Visit: Yes Status: Acute Code(s): I48.92 - UNSPECIFIED ATRIAL FLUTTER SNOMED Code(s): 7375757 (2) Dizziness Current Visit: Yes Status: Acute Code(s): R42 - DIZZINESS AND GIDDINESS SNOMED Code(s): 498110890 (3) History of TIA (transient ischemic attack) Current Visit: Yes Status: Acute Code(s): Z86.73 - PRSNL HX OF TIA (TIA), AND CEREB INFRC W/O RESID DEFICITS SNOMED Code(s): 204063600 Plan: Patient's remains stable. Still complains of intermittent chest discomfort troponins are mildly elevated. Patient also had a nonsustained V. tach on the event monitor. We will proceed with cardiac catheterization on . Oral anticoagulation is being held. Patient will be on heparin. Further examination depend upon the findings on the cath
--- NOTE | 2021-09-29 11:52 | P.PN ---
Progress Note - Text Progress Note Date: 09/29/21 History presenting complaint: 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 Chronic stable medical conditions include GERD, hypertension, colon cancer, seizure, sciatica, COPD. patient was here in the hospital in February 2021 with right brainstem thalamic stroke. Patient has been noticing last few days that she gets dizzy when she stands up. She's been having anywhere from 3-4 BMs a day. Last few days. Oral intake has been fair. Quite often times she will not have breakfast and lunch and just have her dinner. Patient has known atrial flutter fibrillation for which she is on eliquis. Did not take her medication this morning. Patient got a bit dizzy and lost her balance injuring her right ankle. In the ER x-ray studies confirmed right ankle fracture. No chest pain or palpitation. September 28: Patient was taken to the OR yesterday. Was in atrial flutter. In the perioperative period patient went into a asystole. Received about 1 minute of CPR. Came back. Surgery was postponed. Splint was placed. Patient brought to the ICU. Small troponin leak. Currently sitting up in bed. Eating lunch. Remains in atrial flutter. Being followed by cardiology September 29: ICU. Telemetry shows atrial flutter controlled. Per cardiology patient's previous event monitor showed atrial flutter and possible V. tach. Patient is put on IV heparin plan for cardiac catheterization on . Active Medications Acetaminophen (Acetaminophen Tab 325 Mg Tab) 650 mg PO Q6HR PRN PRN Reason: Fever and/ or Pain Alprazolam (Alprazolam 0.5 Mg Tab) 0.5 mg PO BID PRN PRN Reason: Anxiety Last Admin: 09/28/21 21:41 Dose: 0.5 mg Documented by: Aspirin (Aspirin 81 Mg) 81 mg PO DAILY [facility] Last Admin: 09/29/21 08:42 Dose: 81 mg Documented by: Atorvastatin Calcium (Atorvastatin 40 Mg Tab) 40 mg PO HS [facility] Last Admin: 09/28/21 20:00 Dose: 40 mg Documented by: Budesonide/Formoterol Fumarate (Symbicort 160-4.5 Mcg Inhaler) 2 puff INHALATION RT-BID [facility] Last Admin: 09/29/21 08:27 Dose: 2 puff Documented by: Bupropion HCl (Bupropion Xl 300 Mg Tab.Er.24h) 300 mg PO DAILY [facility] Last Admin: 09/29/21 08:44 Dose: 300 mg Documented by: Diphenoxylate HCl/Atropine (Diphenox-Atrop 2.5-0.025 Mg 1 Each Tab) 2 each PO BID PRN PRN Reason: Diarrhea Gabapentin (Gabapentin 300 Mg Cap) 300 mg PO HS [facility] Last Admin: 09/28/21 20:00 Dose: 300 mg Documented by: Heparin Sodium (Porcine) (Heparin Sodium 1,000 Un/Ml (10ml Vl)) 0 unit IV PER PROTOCOL PRN; Protocol PRN Reason: Low PTT Heparin Sodium/Sodium Chloride (25,000 unit/ Sodium Chloride) 250 mls @ 9.84 mls/hr IV .Q24H [facility]; Protocol Heparin Sodium (Porcine) 10, (000 unit/ Sodium Chloride) 1,001 mls @ 999 mls/hr IRRIGATION ONCE PRN PRN Reason: INTRA-OP Stop: 09/30/21 23:00 Heparin Sodium (Porcine) 2,500 (unit/ Sodium Chloride) 250.5 mls @ 250 mls/hr IRRIGATION ONCE PRN PRN Reason: INTRA-OP Stop: 09/30/21 23:00 Sodium Chloride 1,000 ml/ IV (Solution) 1,000 mls @ 82 mls/hr IV .[id number] [facility] Metoprolol Succinate (Metoprolol Succinate (Er) 25 Mg Tab.Er.24h) 25 mg PO DAILY [facility] Last Admin: 09/29/21 08:47 Dose: 25 mg Documented by: Oxybutynin Chloride (Oxybutynin 10 Mg Tab.Er.24) 10 mg PO DAILY [facility] Last Admin: 09/29/21 08:43 Dose: 10 mg Documented by: Paroxetine HCl (Paroxetine 20 Mg Tab) 40 mg PO DAILY [facility] Last Admin: 09/29/21 08:43 Dose: 40 mg Documented by: Past medical history to include: Colon cancer treated with chemotherapy and surgery in 2015, sciatica, essential hypertension, GERD, COPD. Acute right brainstem thalamic stroke in February 2021 Social history: . Smoked less than a pack a day for 45 years stopped in 2016. Alcohol occasionally. Family history: Bladder cancer Physical examination: VITAL SIGNS: Afebrile, 67, 19, 130s and 75, 94% on 4 L GENERAL: Reclining in chair awake, tired EYES: Pupils equal. Conjunctiva normal. HEENT: External appearance of nose and ears normal, oral cavity grossly normal. NECK: JVD not raised; masses not palpable. HEART: Heart sounds irregular; no edema. LUNGS: Respiratory rate normal; decreased breath sounds. ABDOMEN: Soft, nontender, liver spleen not palpable, no masses palpable. PSYCH: Alert and oriented x3; mood and affect normal. MUSCULAR skeletal: Evidence of OA . Right ankle in the splint dressing INVESTIGATIONS, reviewed in the clinical context: 2-D echocardiogram: Severe concentric LVH. EF 55-60%. Possible LVOT obstruction. Moderate MR. September 29: White count 8.9 hemoglobin 12 potassium 4.3 at 0.95 September 28: White count 7.3 hemoglobin 11.6 potassium 3.4 BUN 18 creatinine 1.18 Troponin I 0.026, 0.035 0.064 C. diff: Negative White count 12.9 hemoglobin 13.8 platelets 286 potassium 4.1 BUN 24 creatinine 1.5 EKG tracing personally reviewed by me atrial flutter rate around 80 Chest x-ray film personally reviewed by me-some hyperinflation. Atelectasis. X-ray complete right: Unstable trimalleolar fracture subluxation right ankle Previous labs: February 2021 March 06: Creatinine 1.07 Assessment and plan: -Acute right ankle trimalleolar fracture secondary to fall Close reduction and long leg splint. Full surgery postponed. By Dr. John -IV heparin monitoring Follow PTT -COPD in a X smoker trelegy -Primary osteoarthritis Pain medications as needed -Hypertensive heart disease -Chronic urinary stress incontinence Detrol LA 4 mg daily -Troponin leak likely from hemodynamic mismatch from. / asystole For cardiac catheterization on . -Anxietynot otherwise specified Xanax 0.5 mg twice a day when necessary, Paxil 40 mg daily -Essential hypertension Monitor blood pressure -Persistent atrial flutter fibrillation: Rate controlled Resume eliquis. -Acute kidney injury from patient having diarrhea: Better. Admission creatinine 1.5 -Acute metabolic acidosis from diarrhea: Resolved Continue current medications. Eliquis held. Put on IV heparin. Plan for cardiac catheterization on . Discussed with patient.
[2021-09-29 12:05] LABS: INR 1.1 (<1.2); Prothrombin Time 11.4 sec (9.0-12.0)
--- NOTE | 2021-09-29 12:42 | P.PN ---
Subjective Progress Note Date: 09/29/21 this is a 71-year-old female patient With known history of COPD and various other comorbidities including colon cancer, colectomy and previous current chemotherapy and the patient has been in remission. The patient was also hospitalized back in February 2021 for a right sided brainstem thalamic stroke. The patient was found to have atrial flutter and the patient admitted on long- term anticoagulation on outpatient basis. Note that the patient came into the hospital after she had a fall at home and she had a right sided bimalleolar ankle fracture. Based on that, the patient was taken to the operating room yesterday and the patient was found to have significant amount of swelling where closed reduction was done in the cast/splint was applied pending further/future surgical repair. Noted the patient was taken to the operating room. She was atrial flutter. I believe intraoperatively, the patient went into a period of asystole and the patient required CPR for a total of 1 minutes. I believe the patient was not given any epinephrine or atropine. The patient will receive CPR. Surgery was postponed and the splint was applied and the patient was sent to the intensive care unit. Noted the patient has had a recent cardiac evaluation including a recent cardiac stress of that was done [facility] and she was told that the results were within normal limits. In any rate, the patient is currently in the intensive care unit. She did not require any pressors. She is on 4 L of oxygen by nasal cannula. She had developed an acute kidney injury and the patient also has a component of non-anion gap metabolic acidosis which is being corrected. The patient is awake and alert following commands and answering questions appropriately. She is having some soreness in her chest related to the CPR. The cardiac rhythm is still atrial flutter. No ST segment elevation or depression. Troponins are 0.02, 0.03 and 0.04 respectively 3. Creatinine is at 1.1 after being as high as 1.5 from yesterday. Serum bicarb is at 22 from 14 from yesterday. The hemoglobin currently is at 11.6 with a white cell count of 7.3. 09/29/2021, the patient is doing well. The patient has no specific complaints. No further episodes of cardiac events on cardiac arrest. The patient remains atrial flutter and the patient is anticoagulated with Eliquis. The patient remains on oxygen and the patient is requiring 4 L of O2 by nasal cannula. She is known to have COPD yet she hasn't been oxygen dependent and the patient has been on no home oxygen. The patient has a maintenance fluid unit on outpatient basis. Right lower extremity remains in a splint and continues to be somewhat swollen compared to the left. Otherwise, the patient is doing well. No specific complaints. No chest pain. She did have a bout of diarrhea yesterday 2 and stool for C. diff has been negative. Her echocardiogram showed an ejection fraction of 55%, moderate MR, concentric LVH with questionable left ventricular outflow tract obstruction. There was also mild aortic stenosis. On today's evaluation, the white cycles at 8.2 with hemoglobin of 12 and the patient has a sodium level of 139 with a potassium level of 4.3 BUN of 13 and creatinine of 0.95. Event monitor showed a bout of nonsustained atrial tachycardia and paroxysmal nature fibrillation. The patient is going to undergo cardiac catheterization in a.m. by Dr. Cartwright. Objective - Vital Signs Vital signs: Vital Signs Temp 99.1 F 09/29/21 04:00 Pulse 67 09/29/21 12:00 Resp 16 09/29/21 12:00 BP 133/120 09/29/21 12:00 Pulse Ox 95 09/29/21 12:00 Intake & Output 09/28/21 09/29/21 09/29/21 18:59 06:59 18:59 Intake Total 870 240 Output Total 1400 900 350 Balance -530 -900 -110 Intake: IV 870 Dextrose 5% in Water 1, 500 000 ml @ 100 mls/hr IV . Q11H MELINA with Sodium Bicarb (1 Meq/ml) 100 ml Rx#:[id number] Sodium Chloride 0.9% 1, 370 000 ml @ 125 mls/hr IV . Q8H MELINA Rx#:[id number] Oral 240 Output: Urine 1400 900 350 Other: # Voids 1 0 # Bowel Movements 1 1 - Exam GENERAL: Reclining in bed, awake, tired, no active signs of respiratory distress and the patient is currently on 4 L of O2 by nasal cannula Head exam was generally normal. There was no scleral icterus or corneal arcus. Mucous membranes were moist. EYES: Pupils equal. Conjunctiva normal. HEENT: External appearance of nose and ears normal, oral cavity grossly normal. NECK: JVD not raised; masses not palpable. HEART: Heart sounds irregular; no edema. LUNGS: Respiratory rate normal; decreased breath sounds. ABDOMEN: Soft, nontender, liver spleen not palpable, no masses palpable. PSYCH: Alert and oriented x3; mood and affect normal. MUSCULAR skeletal: Evidence of OA . Dressing right ankle, the patient has a right lower extremity splint Examination of the extremities revealed easily palpable radial, femoral and pedal pulses. There was no cyanosis, clubbing or edema.. The patient has a right lower extremity foot splint applied. - Labs CBC & Chem 7: 09/29/21 07:35 09/29/21 07:35 Labs: Abnormal Lab Results - Last 24 Hours (Table) 09/28/21 09/28/21 09/29/21 Range/Units 12:34 15:56 07:35 MCV 100.5 H (80.0-100.0) fL Chloride (98-107) mmol/L Glucose (74-99) mg/dL Troponin I 0.049 H* 0.064 H* (0.000-0.034) ng/mL 09/29/21 Range/Units 07:35 MCV (80.0-100.0) fL Chloride 108 H (98-107) mmol/L Glucose 128 H (74-99) mg/dL Troponin I (0.000-0.034) ng/mL Assessment and Plan Plan: 1 acute cardiac arrest, asystole, exact cause is not clear. The exact circumstances for his cardiac arrest is not clear to me at this point. I believe this occurred preoperatively, it could have been a vagal response. Troponins are minimally elevated at this point in time the patient is free of any chest pain. No acute ST segment elevation or depression the patient continues to be in atrial flutter. Manager R D consult on the patient and review of her event monitor showed that the patient has had approximately atrial fibrillation and episodes of nonsustained ventricular tachycardia. Her previous Chest that showed a fixed defect in the inferior wall without any reversible ischemia. In view of the abnormal troponin and a nonsustained V. tach, the patient is going to undergo a cardiac catheterization tomorrow by cardiology. 2 acute the right ankle bimalleolar fracture, the patient underwent closed reduction and placement of the splint 3 COPD 4 history of colon cancer 5 chronic anxiety/depression 6 hypertension 7 chronic atrial flutter 8 acute kidney injury, improving and the creatinine is down to 1.1 9 non-anion gap metabolic acidosis, currently on a bicarb infusion for replacement of the bicarb deficit and this could have been related to the diarrhea that the patient was having on outpatient basis 10 degenerative arthritis 11 hypertension 12 diarrhea, negative stool for C. diff. Plan Clinically stable Echocardiogram was noted Cardiac catheterization in a.m. 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 diff has been negative Will monitor the cardiac rhythm another 24 hours here in the intensive care unit and will continue to follow.
--- NOTE | 2021-09-29 12:44 | CDI ---
Typical atrial flutter Documentation Clarification Form Date: 09/29/2021 12:34:39 PM From: Roxane HongAdamsTOSIN chapa, CCDS Admit Date: 09/27/2021 03:05:00 PM Patient Name: Yanni Morales Visit Number: [id number] Discharge Date: ATTENTION: The Clinical Documentation Specialists (CDI) and [facility] Coding Staff appreciate your assistance in clarifying documentation. Please respond to the clarification below the line at the bottom and electronically sign. The CDI & [facility] Coding staff will review the response and follow-up if needed. Please note: Queries are made part of the Legal Health Record. If you have any questions, please contact the author of this message via ITS. Dr. Mallory Swenson: Atrial Flutter is documented throughout the record including in the 09/27 ED note per the EKG, the 09/27 Medical Management Consult, the 09/28 Pulmonary Consult and the 09/28 Cardiology Consult without further specificity. Additional clarification regarding the type of Atrial Flutter is requested. History/Risk factors per the 09/27 H/P: Colon Cancer status post surgery & chemotherapy, Sciatica, GERD, GI Bleed, Hypertension, Anxiety, Former Smoker. Clinical Indicators: Presented to the ED on 09/27 after a fall at home with a right ankle fracture, dizziness and diarrhea. Admit with Fall, Acute Diarrhea, Trimalleolar Fracture 09/26 EKG: R 64 Atrial flutter /Tachycardia Treatment 09/27: O2 2Lnc, po Lomotil, IV Na Cl 1,000 mls @ 999 mls/hr q1H, IV Na Cl 500 mls @ 999 mls/hr q31M, IV Dextrose/Water w/Na Bicarb 1,100 mls @ 100 mls/hr q1H 09/28: po Paxil, po Eliquis, po Aspirin 09/29: IV Heparin drip Please clarify the type of Atrial Flutter, if known: [ ] Typical/Type I [ ] Atypical/Type II [ ] Other, please specify [ ] Unable to determine (Template Last Revised: August 2020) MTDD
[2021-09-29] MEDS: HEPARIN SOD,PORK IN 0.45% NACL 25,000 UNIT in 0.45% NACL 1 250ML.BAG IV SCH (13:08)
[2021-09-29] MEDS: ATORVASTATIN 40 MG TAB PO SCH (20:17)
[2021-09-29] MEDS: GABAPENTIN 300 MG CAP PO SCH (20:17)
[2021-09-30 00:02] LABS: Basophils % (A) 0 %; Eosinophils # (A) 0.1 k/uL (0-0.7); Eosinophils % (A) 1 %; HCT 34.9 % (34.0-46.0); Hypochromasia Slight; Lymphocytes # (A) 1.2 k/uL (1.0-4.8); Lymphocytes % (A) 16 %; MCH 30.8 pg (25.0-35.0); MCHC 31.5 g/dL (31.0-37.0); MCV 97.9 fL (80.0-100.0); Mean Platelet Volume 7.4; Monocytes # (A) 0.7 k/uL (0-1.0); Monocytes % (A) 9 %; Neutrophils # (A) 5.5 k/uL (1.3-7.7); Neutrophils % (A) 71 %; Platelet Count 268 k/uL (150-450); RBC 3.56 m/uL (3.80-5.40); RDW 14.2 % (11.5-15.5); WBC 7.7 k/uL (3.8-10.6)
[2021-09-30] MEDS ORDERED: HEPARIN SODIUM,PORCINE 10,000 UNIT in SODIUM CHLORIDE 0.9% 1,000 ML IRRIGATION PRN (07:00)
[2021-09-30] MEDS ORDERED: HEPARIN SODIUM,PORCINE 2,500 UNIT in SODIUM CHLORIDE 0.9% 250 ML IRRIGATION PRN (07:00)
[2021-09-30] MEDS: SYMBICORT 160-4.5 MCG INHALER INHALATION SCH ×2 (07:41→20:00)
[2021-09-30 07:50] LABS: Basophils % (A) 1 %; Eosinophils # (A) 0.1 k/uL (0-0.7); Eosinophils % (A) 1 %; HCT 32.6 % (34.0-46.0); HGB 10.5 gm/dL (11.4-16.0); Hypochromasia Slight; Lymphocytes # (A) 1.1 k/uL (1.0-4.8); Lymphocytes % (A) 16 %; MCH 31.8 pg (25.0-35.0); MCHC 32.3 g/dL (31.0-37.0); MCV 98.6 fL (80.0-100.0); Mean Platelet Volume 7.6; Monocytes # (A) 0.5 k/uL (0-1.0); Monocytes % (A) 8 %; Neutrophils # (A) 4.9 k/uL (1.3-7.7); Neutrophils % (A) 71 %; Platelet Count 216 k/uL (150-450); RDW 14.4 % (11.5-15.5); WBC 6.9 k/uL (3.8-10.6)
[2021-09-30 08:09] LABS: INR 1.3 (<1.2)
--- NOTE | 2021-09-30 08:25 | CDI ---
Documentation Clarification Form Date: 09/30/2021 08:05:00 AM From: Roxane Adams CCS, CCDS Admit Date: 09/27/2021 03:05:00 PM Patient Name: Yanni Morales Visit Number: [id number] Discharge Date: ATTENTION: The Clinical Documentation Specialists (CDI) and [facility] Coding Staff appreciate your assistance in clarifying documentation. Please respond to the clarification below the line at the bottom and electronically sign. The CDI & [facility] Coding staff will review the response and follow-up if needed. Please note: Queries are made part of the Legal Health Record. If you have any questions, please contact the author of this message via ITS. Dr. Ileana Brown: Per the Orthopedic Surgeon's Progress Note on 09/27: Prior to induction of anesthesia the patient went into an unstable cardiac arrhythmia. Prior to induction of anesthesia the patient's cardiac tracing became unstable and there was concern about proceeding with surgery. Per the 09/28 Cardiology Consult: Acute cardiac arrest, asystole, exact cause is not clear. Based on this information and the findings below, is there an additional diagnosis that is clinically appropriate for this patient? History/Risk Factors per the 09/27 H/P: Colon Cancer status post surgery & chemotherapy, GERD, GI Bleed, Hypertension, Sciatica, COPD (per the Medical Management Consult), former smoker. Clinical Indicators: Presented to the ED on 09/27 after a fall at home with a right ankle fracture, dizziness and diarrhea. Admit with Fall, Acute Diarrhea, Trimalleolar Fracture 09/27 Preoperative VS: T 98.2, P 66, R 18 - 21, BP 89/59, 76/45; PO 91 5L, 85 5Lnc. 09/27 LAB: CO2 14, BUN 24, Creatinine 1.50, CKMB 4.2, Troponin 0.026, 0.035, 0.064 09/27 CXR: No acute process. Right basilar subsegmental atelectasis or scarring. 09/26 EKG: R 64 Atrial flutter /Tachycardia Treatment 09/27: O2 2Lnc increased to 5L nc, po Lomotil, IV Na Cl 1,000 mls @ 999 mls/hr q1H, IV Na Cl 500 mls @ 999 mls/hr q31M, IV Dextrose/Water w/Na Bicarb 1,100 mls @ 100 mls/hr q1H Is there an additional diagnosis that is clinically appropriate for this patient? [ x ] Acute Hypoxic Respiratory Failure [ ] Acute on Chronic Hypoxic Respiratory Failure [ ] Chronic Respiratory Failure [ ] Acute Respiratory Insufficiency [ ] Other Diagnosis, please specify [ ] Unable to determine (Template Last Revised: August 2020) MTDD
[2021-09-30 08:50] LABS: Partial Thromboplastin Time >200.0 sec (22.0-30.0)
[2021-09-30] MEDS: ASPIRIN 81 MG PO SCH (10:09)
[2021-09-30] MEDS: PARoxetine 20 MG TAB PO SCH (10:10)
[2021-09-30] MEDS: buPROPion XL 300 MG TAB.ER.24H PO SCH (10:10)
[2021-09-30] MEDS: OXYBUTYNIN 10 MG TAB.ER.24 PO SCH (10:11)
--- NOTE | 2021-09-30 11:39 | P.PN ---
Subjective Progress Note Date: 09/30/21 this is a 71-year-old female patient With known history of COPD and various other comorbidities including colon cancer, colectomy and previous current chemotherapy and the patient has been in remission. The patient was also hospitalized back in February 2021 for a right sided brainstem thalamic stroke. The patient was found to have atrial flutter and the patient admitted on long- term anticoagulation on outpatient basis. Note that the patient came into the hospital after she had a fall at home and she had a right sided bimalleolar ankle fracture. Based on that, the patient was taken to the operating room yesterday and the patient was found to have significant amount of swelling where closed reduction was done in the cast/splint was applied pending further/future surgical repair. Noted the patient was taken to the operating room. She was atrial flutter. I believe intraoperatively, the patient went into a period of asystole and the patient required CPR for a total of 1 minutes. I believe the patient was not given any epinephrine or atropine. The patient will receive CPR. Surgery was postponed and the splint was applied and the patient was sent to the intensive care unit. Noted the patient has had a recent cardiac evaluation including a recent cardiac stress of that was done [facility] and she was told that the results were within normal limits. In any rate, the patient is currently in the intensive care unit. She did not require any pressors. She is on 4 L of oxygen by nasal cannula. She had developed an acute kidney injury and the patient also has a component of non-anion gap metabolic acidosis which is being corrected. The patient is awake and alert following commands and answering questions appropriately. She is having some soreness in her chest related to the CPR. The cardiac rhythm is still atrial flutter. No ST segment elevation or depression. Troponins are 0.02, 0.03 and 0.04 respectively 3. Creatinine is at 1.1 after being as high as 1.5 from yesterday. Serum bicarb is at 22 from 14 from yesterday. The hemoglobin currently is at 11.6 with a white cell count of 7.3. 09/29/2021, the patient is doing well. The patient has no specific complaints. No further episodes of cardiac events on cardiac arrest. The patient remains atrial flutter and the patient is anticoagulated with Eliquis. The patient remains on oxygen and the patient is requiring 4 L of O2 by nasal cannula. She is known to have COPD yet she hasn't been oxygen dependent and the patient has been on no home oxygen. The patient has a maintenance fluid unit on outpatient basis. Right lower extremity remains in a splint and continues to be somewhat swollen compared to the left. Otherwise, the patient is doing well. No specific complaints. No chest pain. She did have a bout of diarrhea yesterday 2 and stool for C. diff has been negative. Her echocardiogram showed an ejection fraction of 55%, moderate MR, concentric LVH with questionable left ventricular outflow tract obstruction. There was also mild aortic stenosis. On today's evaluation, the white cycles at 8.2 with hemoglobin of 12 and the patient has a sodium level of 139 with a potassium level of 4.3 BUN of 13 and creatinine of 0.95. Event monitor showed a bout of nonsustained atrial tachycardia and paroxysmal nature fibrillation. The patient is going to undergo cardiac catheterization in a.m. by Dr. Cartwright. 09/30/2000 seen in follow-up. The patient has no specific complaints. She is fairly of any chest pain. No cardiac been noted. Event monitor the admission is shown paroxysmal atrial fibrillation and the patient has also had nonsustained V. tach. Based on that, the patient is going to undergo a cardiac catheterization and the exact timing is not known to be at this point in time. This will be decided by cardiology. She is doing well. She is on IV heparin. There is a concern for GI bleed as the patient's occult stool came back positive for blood. Lobe and was 11 yesterday and down to 10.5 on today's evaluation. She has also had an episode of bradycardia yesterday when she was sleeping. Based on that, I'm recommending to stop the beta blockers for now. No diarrhea. She remains on oxygen and she was weaned down to 2 L of oxygen by nasal desi filiberto. His underlying COPD pedis and spirometer was also provided. No other significant events otherwise for this patient over the past 24 hours. Objective - Vital Signs Vital signs: Vital Signs Temp 98.2 F 09/30/21 08:00 Pulse 59 L 09/30/21 11:00 Resp 21 09/30/21 11:00 BP 110/56 09/30/21 11:00 Pulse Ox 92 L 09/30/21 08:00 Intake & Output 09/29/21 09/30/21 09/30/21 18:59 06:59 18:59 Intake Total 538.38 10 0 Output Total 1150 450 180 Balance -611.62 -440 -180 Intake: Intake, IV Titration 58.38 10 0 Amount Heparin Sod,Pork in 0.45% 48.38 NaCl 25,000 unit In 0.45 % NaCl 1 250ml.bag @ 12 UNITS/KG/HR 9.84 mls/hr IV .Q24H [facility] Rx#: [id number] Sodium Chloride 0.9% 1, 10 10 0 000 ml In Empty Bag 1 bag @ 1 ML/KG/HR 82 mls/hr IV .[id number] [facility] Rx#: [id number] Oral 480 Output: Urine 950 450 180 Urine/Stool Mix 200 Other: # Voids 1 0 # Bowel Movements 1 1 - Exam GENERAL: Reclining in bed, awake, tired, no active signs of respiratory distress and the patient is currently on 2 L of O2 by nasal cannula Head exam was generally normal. There was no scleral icterus or corneal arcus. Mucous membranes were moist. EYES: Pupils equal. Conjunctiva normal. HEENT: External appearance of nose and ears normal, oral cavity grossly normal. NECK: JVD not raised; masses not palpable. HEART: Heart sounds irregular; no edema. LUNGS: Respiratory rate normal; decreased breath sounds. ABDOMEN: Soft, nontender, liver spleen not palpable, no masses palpable. PSYCH: Alert and oriented x3; mood and affect normal. MUSCULAR skeletal: Evidence of OA . Dressing right ankle, the patient has a right lower extremity splint Examination of the extremities revealed easily palpable radial, femoral and pedal pulses. There was no cyanosis, clubbing or edema.. The patient has a right lower extremity foot splint applied. - Labs CBC & Chem 7: 09/30/21 07:29 09/29/21 07:35 Labs: Abnormal Lab Results - Last 24 Hours (Table) 09/29/21 09/29/21 09/29/21 Range/Units 16:53 19:00 23:35 RBC (3.80-5.40) m/uL Hgb (11.4-16.0) gm/dL Hct (34.0-46.0) % PT (9.0-12.0) sec INR (<1.2) APTT 40.7 H 65.6 H (22.0-30.0) sec Stool Occult Blood Positive H (Negative) 09/29/21 09/30/21 09/30/21 Range/Units 23:35 07:29 07:29 RBC 3.56 L 3.30 L (3.80-5.40) m/uL Hgb 11.0 L 10.5 L (11.4-16.0) gm/dL Hct 32.6 L (34.0-46.0) % PT 14.0 H (9.0-12.0) sec INR 1.3 H (<1.2) APTT >200.0 H* (22.0-30.0) sec Stool Occult Blood (Negative) 09/30/21 Range/Units 09:40 RBC (3.80-5.40) m/uL Hgb (11.4-16.0) gm/dL Hct (34.0-46.0) % PT (9.0-12.0) sec INR (<1.2) APTT 53.6 H (22.0-30.0) sec Stool Occult Blood (Negative) Assessment and Plan Plan: 1 acute cardiac arrest, asystole, exact cause is not clear. The exact circumstances for his cardiac arrest is not clear to me at this point. I believe this occurred preoperatively, it could have been a vagal response. T roponins are minimally elevated at this point in time the patient is free of any chest pain. No acute ST segment elevation or depression the patient continues to be in atrial flutter. Operations Advisor consult on the patient and review of her event monitor showed that the patient has had approximately atrial fibrillation and episodes of nonsustained ventricular tachycardia. Her previous Chest that s howed a fixed defect in the inferior wall without any reversible ischemia. In view of the abnormal troponin and a nonsustained V. tach, the patient is going to undergo a cardiac catheterization tomorrow by cardiology. We are still awaiting cardiac catheterization by cardiology to obtain complete clearance in terms of the cardiac status since patient special with above-mentioned events that occurred. 2 acute the right ankle bimalleolar fracture, the patient underwent closed reduction and placement of the splint 3 COPD 4 history of colon cancer 5 chronic anxiety/depression 6 hypertension 7 chronic atrial flutter 8 acute kidney injury, improving and the creatinine is down to 0.95 9 non-anion gap metabolic acidosis, currently on a bicarb infusion for replacement of the bicarb deficit and this could have been related to the diarrhea that the patient was having on outpatient basis 10 degenerative arthritis 11 hypertension 12 diarrhea, negative stool for C. diff. Plan Clinically stable No reported chest pain or any form of cardiac arrhythmias. Echocardiogram was noted Cardiac catheterization by cardiology as the patient's event monitor also showed a run of nonsustained ventricular tachycardia Discontinue the beta link based on some episodic bradycardia specially the hilda shah sleeps Continue IV heparin cardiac catheterization in the morning Renal function is stable and the creatinine is down to 0.9 and a serum bicarbonate was up to 24 No further bouts of diarrhea, stool for C. diff has been negative Will monitor the cardiac rhythm another 24 hours here in the intensive care unit and will continue to follow.
[2021-09-30] MEDS: HEPARIN SOD,PORK IN 0.45% NACL 25,000 UNIT in 0.45% NACL 1 250ML.BAG IV SCH (11:40)
--- NOTE | 2021-09-30 11:56 | P.PN ---
Subjective Progress Note Date: 09/30/21 This is a 71-year-old female with history of hypertension, GERD, colon cancer, seizure disorder, [place], COPD Who Was Admitted to This Hospital in February 2021 with right brain stem thalamic stroke. Subsequently she had follow-up with Dr. Key and apparently had given monitor and stress test. She was diagnosed to have atrial fibrillation and was initiated on metoprolol succinate 25 mg along with anticoagulation therapy. Patient is now admitted to the hospital with dizziness and a fall resulting in fracture of the ankle. She claims she has been having dizziness whenever she stands, which usually stabilizes or resolves after a few seconds of standing still. She was having diarrhea and has to go to bathroom frequently. On this occasion. Patient has to keita without bleeding to stand stable and apparently felt dizzy and fell to the ground. She doesn't say that she lost consciousness. She is found to have fracture of the ankle. Yesterday patient was taken to or to have surgery to fix the ankle fracture. However, patient apparently developed a cardiac arrhythmia and it appears that patient had a long pause. She needed some CPR. The details of the event are not clear. Patient had closed reduction and disease in ICU being monitored. She seemed to be in atrial fibrillation with relatively slow ventricular response in the 60s. Patient is otherwise complaining some chest soreness seemed to be related to CPR. At this point we will review the recent event monitor and also stress test reports. If she were to go home, she would have given monitor for the next week and have follow-up with Dr. Key as an outpatient. If we document, that patient has significant pauses or bradycardia, she may be having tachybradycardia syndrome and may require permanent pacemaker implantation. Her troponin is mildly elevated and a creatinine was about 1.5. We'll also get an echocardiogram to assess LV function and rule out any segmental wall motion defects. Further examination depend upon the clinical course. 09/29/2021: Patient seemed to be relatively stable. She remains in atrial flutter with controlled and corresponds. No significant pauses or arrhythmias noted. Echo Cardigan showed normal LV function. Troponin values are mildly elevated. Reviewed her previous event monitor, this showed evidence of paroxysmal atrial fibrillation and an episode of nonsustained V. tach. Her stress test showed a fixed defect in the inferior wall without any reversible ischemia. In view of abnormal troponins and also history of nonsustained V. tach, contacted Dr. Key regarding further evaluation with cardiac catheterization. Patient is currently on anticoagulation, oral. Will hold oral anticoagulation and initiated on heparin drip. Patient is being scheduled for cardiac cath to be done by Dr. Key on . Further recommend she'll depend upon the findings. Meanwhile rest of the medication be continued. Beta blocks are being held because of bradycardia. 09/30/2021: Patient is stable since yesterday. Remains in atrial fibrillation and flutter with controlled rate. Chest pain is somewhat improved. No ventricular arrhythmias noted. Patient is scheduled to have cardiac catheterization tomorrow to rule out any underlying ischemic heart disease. If cardiac catheterization is normal, patient could be discharged home with event monitor to document any bradyarrhythmias. Patient may have sick sinus syndrome and may require pacemaker. Further recommendations depend upon the clinical course. Objective - Vital Signs Vital signs: Vital Signs Temp 98.2 F 09/30/21 08:00 Pulse 59 L 09/30/21 11:00 Resp 21 09/30/21 11:00 BP 110/56 09/30/21 11:00 Pulse Ox 92 L 09/30/21 08:00 Intake & Output 09/29/21 09/30/21 09/30/21 18:59 06:59 18:59 Intake Total 538.38 10 0 Output Total 1150 450 180 Balance -611.62 -440 -180 Intake: Intake, IV Titration 58.38 10 0 Amount Heparin Sod,Pork in 0.45% 48.38 NaCl 25,000 unit In 0.45 % NaCl 1 250ml.bag @ 12 UNITS/KG/HR 9.84 mls/hr IV .Q24H [facility] Rx#: [id number] Sodium Chloride 0.9% 1, 10 10 0 000 ml In Empty Bag 1 bag @ 1 ML/KG/HR 82 mls/hr IV .[id number] [facility] Rx#: [id number] Oral 480 Output: Urine 950 450 180 Urine/Stool Mix 200 Other: # Voids 1 0 # Bowel Movements 1 1 - Exam GENERAL EXAM: Patient is alert and oriented and doesn't appear to be in any acute distress HEENT: Normocephalic. Normal reaction of pupils, equal size, normal range of extraocular motion. No erythema or exudates in the throat. NECK: No masses, no nuchal rigidity. CHEST: No chest wall deformity. LUNGS: Equal air entry with no crackles or wheeze. HEART: S1 and S2 normal . Irregular heart sounds. Systolic murmur in the aortic area ABDOMEN: No hepatosplenomegaly, normal bowel sounds, no guarding or rigidity. SKIN: No rashes CENTRAL NERVOUS SYSTEM: No focal deficits. EXTREMITIES: Right foot is wrapped - Labs CBC & Chem 7: 09/30/21 07:29 09/29/21 07:35 Labs: Abnormal Lab Results - Last 24 Hours (Table) 09/29/21 09/29/21 09/29/21 Range/Units 16:53 19:00 23:35 RBC (3.80-5.40) m/uL Hgb (11.4-16.0) gm/dL Hct (34.0-46.0) % PT (9.0-12.0) sec INR (<1.2) APTT 40.7 H 65.6 H (22.0-30.0) sec Stool Occult Blood Positive H (Negative) 09/29/21 09/30/21 09/30/21 Range/Units 23:35 07:29 07:29 RBC 3.56 L 3.30 L (3.80-5.40) m/uL Hgb 11.0 L 10.5 L (11.4-16.0) gm/dL Hct 32.6 L (34.0-46.0) % PT 14.0 H (9.0-12.0) sec INR 1.3 H (<1.2) APTT >200.0 H* (22.0-30.0) sec Stool Occult Blood (Negative) 09/30/21 Range/Units 09:40 RBC (3.80-5.40) m/uL Hgb (11.4-16.0) gm/dL Hct (34.0-46.0) % PT (9.0-12.0) sec INR (<1.2) APTT 53.6 H (22.0-30.0) sec Stool Occult Blood (Negative) Assessment and Plan (1) Atrial flutter Current Visit: Yes Status: Acute Code(s): I48.92 - UNSPECIFIED ATRIAL FLUTTER SNOMED Code(s): 2183003 (2) Dizziness Current Visit: Yes Status: Acute Code(s): R42 - DIZZINESS AND GIDDINESS SNOMED Code(s): 524197202 (3) History of TIA (transient ischemic attack) Current Visit: Yes Status: Acute Code(s): Z86.73 - PRSNL HX OF TIA (TIA), AND CEREB INFRC W/O RESID DEFICITS SNOMED Code(s): 271693447 Plan: Patient is going to have cardiac cath tomorrow to rule out underlying ischemic heart disease. If Is normal, patient could be discharged home with event monitor. Follow-up by Dr. Key
--- NOTE | 2021-09-30 12:34 | P.PN ---
Progress Note - Text Progress Note Date: 09/30/21 History presenting complaint: 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 Chronic stable medical conditions include GERD, hypertension, colon cancer, seizure, sciatica, COPD. patient was here in the hospital in February 2021 with right brainstem thalamic stroke. Patient has been noticing last few days that she gets dizzy when she stands up. She's been having anywhere from 3-4 BMs a day. Last few days. Oral intake has been fair. Quite often times she will not have breakfast and lunch and just have her dinner. Patient has known atrial flutter fibrillation for which she is on eliquis. Did not take her medication this morning. Patient got a bit dizzy and lost her balance injuring her right ankle. In the ER x-ray studies confirmed right ankle fracture. No chest pain or palpitation. September 28: Patient was taken to the OR yesterday. Was in atrial flutter. In the perioperative period patient went into a asystole. Received about 1 minute of CPR. Came back. Surgery was postponed. Splint was placed. Patient brought to the ICU. Small troponin leak. Currently sitting up in bed. Eating lunch. Remains in atrial flutter. Being followed by cardiology September 29: ICU. Telemetry shows atrial flutter controlled. Per cardiology patient's previous event monitor showed atrial flutter and possible V. tach. Patient is put on IV heparin plan for cardiac catheterization on . September 6: ICU. IV heparin. Remains in atrial flutter. Pain control in the right leg. Plan for cardiac catheterization tomorrow. Active Medications Acetaminophen (Acetaminophen Tab 325 Mg Tab) 650 mg PO Q6HR PRN PRN Reason: Fever and/ or Pain Alprazolam (Alprazolam 0.5 Mg Tab) 0.5 mg PO BID PRN PRN Reason: Anxiety Last Admin: 09/28/21 21:41 Dose: 0.5 mg Documented by: Aspirin (Aspirin 81 Mg) 81 mg PO DAILY [facility] Last Admin: 09/30/21 10:09 Dose: Not Given Documented by: Atorvastatin Calcium (Atorvastatin 40 Mg Tab) 40 mg PO HS [facility] Last Admin: 09/29/21 20:17 Dose: 40 mg Documented by: Budesonide/Formoterol Fumarate (Symbicort 160-4.5 Mcg Inhaler) 2 puff INHALATION RT-BID [facility] Last Admin: 09/30/21 07:41 Dose: 2 puff Documented by: Bupropion HCl (Bupropion Xl 300 Mg Tab.Er.24h) 300 mg PO DAILY [facility] Last Admin: 09/30/21 10:10 Dose: 300 mg Documented by: Diphenoxylate HCl/Atropine (Diphenox-Atrop 2.5-0.025 Mg 1 Each Tab) 2 each PO BID PRN PRN Reason: Diarrhea Gabapentin (Gabapentin 300 Mg Cap) 300 mg PO HS [facility] Last Admin: 09/29/21 20:17 Dose: 300 mg Documented by: Heparin Sodium (Porcine) (Heparin Sodium 1,000 Un/Ml (10ml Vl)) 0 unit IV PER PROTOCOL PRN; Protocol PRN Reason: Low PTT Last Admin: 09/29/21 18:06 Dose: 2,050 unit Documented by: Heparin Sodium/Sodium Chloride (25,000 unit/ Sodium Chloride) 250 mls @ 9.84 mls/hr IV .Q24H [facility]; Protocol Last Titration: 09/29/21 18:03 Dose: 14 units/kg/hr, 11.48 mls/hr Documented by: Heparin Sodium (Porcine) 10, (000 unit/ Sodium Chloride) 1,001 mls @ 999 mls/hr IRRIGATION ONCE PRN PRN Reason: INTRA-OP Stop: 09/30/21 23:00 Heparin Sodium (Porcine) 2,500 (unit/ Sodium Chloride) 250.5 mls @ 250 mls/hr IRRIGATION ONCE PRN PRN Reason: INTRA-OP Stop: 09/30/21 23:00 Sodium Chloride 1,000 ml/ IV (Solution) 1,000 mls @ 82 mls/hr IV .[id number] [facility] Oxybutynin Chloride (Oxybutynin 10 Mg Tab.Er.24) 10 mg PO DAILY [facility] Last Admin: 09/30/21 10:11 Dose: 10 mg Documented by: Paroxetine HCl (Paroxetine 20 Mg Tab) 40 mg PO DAILY [facility] Last Admin: 09/30/21 10:10 Dose: 40 mg Documented by: Past medical history to include: Colon cancer treated with chemotherapy and surgery in 2015, sciatica, essential hypertension, GERD, COPD. Acute right brainstem thalamic stroke in February 2021 Social history: . Smoked less than a pack a day for 45 years stopped in 2017. Alcohol occasionally. Family history: Bladder cancer Physical examination: VITAL SIGNS: 98.2, 66, 21, 1 10 x 56, 92% on 4 L GENERAL: Reclining in bed awake, tired EYES: Pupils equal. Conjunctiva normal. HEENT: External appearance of nose and ears normal, oral cavity grossly normal. NECK: JVD not raised; masses not palpable. HEART: Heart sounds irregular; no edema. LUNGS: Respiratory rate normal; decreased breath sounds. ABDOMEN: Soft, nontender, liver spleen not palpable, no masses palpable. PSYCH: Alert and oriented x3; mood and affect normal. MUSCULAR skeletal: Evidence of OA . Right ankle in the splint dressing INVESTIGATIONS, reviewed in the clinical context: September 30: Echo 6.9 hemoglobin 10.5 2-D echocardiogram: Severe concentric LVH. EF 55-60%. Possible LVOT obstruction. Moderate MR. September 29: White count 8.9 hemoglobin 12 potassium 4.3 at 0.95 September 28: White count 7.3 hemoglobin 11.6 potassium 3.4 BUN 18 creatinine 1.18 Troponin I 0.026, 0.035 0.064 C. diff: Negative White count 12.9 hemoglobin 13.8 platelets 286 potassium 4.1 BUN 24 creatinine 1.5 EKG tracing personally reviewed by me atrial flutter rate around 80 Chest x-ray film personally reviewed by me-some hyperinflation. Atelectasis. X-ray complete right: Unstable trimalleolar fracture subluxation right ankle Previous labs: February 2021 March 06: Creatinine 1.07 Assessment and plan: -Acute right ankle trimalleolar fracture secondary to fall Close reduction and long leg splint. Full surgery postponed. By Dr. John -IV heparin monitoring Follow PTT -COPD in a X smoker trelegy -Primary osteoarthritis Pain medications as needed -Hypertensive heart disease -Chronic urinary stress incontinence Detrol LA 4 mg daily -Troponin leak likely from hemodynamic mismatch from. / asystole For cardiac catheterization on . -Anxietynot otherwise specified Xanax 0.5 mg twice a day when necessary, Paxil 40 mg daily -Essential hypertension Monitor blood pressure -Persistent atrial flutter fibrillation: Rate controlled Resume eliquis. -Acute kidney injury from patient having diarrhea: Better. Admission creatinine 1.5 -Acute metabolic acidosis from diarrhea: Resolved Continue current medications. Eliquis held. IV heparin. Plan for cardiac catheterization tomorrow. Discussed with patient.
[2021-09-30] MEDS: DIPHENOX-ATROP 2.5-0.025 MG 1 EACH TAB PO PRN (20:17)
[2021-09-30] MEDS: ATORVASTATIN 40 MG TAB PO SCH (20:17)
[2021-09-30] MEDS: GABAPENTIN 300 MG CAP PO SCH (20:17)
[2021-10-01 05:10] LABS: Basophils % (A) 0 %; Eosinophils # (A) 0.1 k/uL (0-0.7); Eosinophils % (A) 2 %; HCT 34.9 % (34.0-46.0); HGB 11.3 gm/dL (11.4-16.0); Hypochromasia Slight; Lymphocytes # (A) 1.4 k/uL (1.0-4.8); Lymphocytes % (A) 23 %; MCH 31.6 pg (25.0-35.0); MCHC 32.4 g/dL (31.0-37.0); MCV 97.7 fL (80.0-100.0); Mean Platelet Volume 7.1; Monocytes # (A) 0.5 k/uL (0-1.0); Monocytes % (A) 8 %; Neutrophils # (A) 3.7 k/uL (1.3-7.7); Neutrophils % (A) 63 %; Platelet Count 293 k/uL (150-450); RBC 3.58 m/uL (3.80-5.40); RDW 14.2 % (11.5-15.5)
[2021-10-01 05:33] LABS: Calcium 8.4 mg/dL (8.4-10.2); Potassium 3.4 mmol/L (3.5-5.1)
[2021-10-01] MEDS: POTASSIUM CHLORIDE ER 20 MEQ TAB.ER PO SCH ×2 (06:03→07:06)
[2021-10-01] MEDS: SODIUM CHLORIDE 0.9% 1,000 ML in EMPTY BAG 1 BAG IV SCH ×2 (06:05→13:00)
[2021-10-01] MEDS: SYMBICORT 160-4.5 MCG INHALER INHALATION SCH ×2 (07:29→20:57)
[2021-10-01] MEDS: OXYBUTYNIN 10 MG TAB.ER.24 PO SCH (08:06)
[2021-10-01] MEDS: ASPIRIN 81 MG PO SCH (08:06)
[2021-10-01] MEDS: PARoxetine 20 MG TAB PO SCH (08:06)
[2021-10-01] MEDS ORDERED: VERAPAMIL 2.5 MG/ML 2 ML AMP ONE (11:26)
[2021-10-01] MEDS ORDERED: LIDOCAINE 1% INJ 10MG/ML (20 ML MDV) ONE (11:26)
[2021-10-01] MEDS ORDERED: fentaNYL (PF) 50 MCG/ML 2 ML AMP ONE (11:28)
--- NOTE | 2021-10-01 11:28 | P.PN ---
Subjective Progress Note Date: 10/01/21 this is a 71-year-old female patient With known history of COPD and various other comorbidities including colon cancer, colectomy and previous current chemotherapy and the patient has been in remission. The patient was also hospitalized back in February 2021 for a right sided brainstem thalamic stroke. The patient was found to have atrial flutter and the patient admitted on long- term anticoagulation on outpatient basis. Note that the patient came into the hospital after she had a fall at home and she had a right sided bimalleolar ankle fracture. Based on that, the patient was taken to the operating room yesterday and the patient was found to have significant amount of swelling where closed reduction was done in the cast/splint was applied pending further/future surgical repair. Noted the patient was taken to the operating room. She was atrial flutter. I believe intraoperatively, the patient went into a period of asystole and the patient required CPR for a total of 1 minutes. I believe the patient was not given any epinephrine or atropine. The patient will receive CPR. Surgery was postponed and the splint was applied and the patient was sent to the intensive care unit. Noted the patient has had a recent cardiac evaluation including a recent cardiac stress of that was done [facility] and she was told that the results were within normal limits. In any rate, the patient is currently in the intensive care unit. She did not require any pressors. She is on 4 L of oxygen by nasal cannula. She had developed an acute kidney injury and the patient also has a component of non-anion gap metabolic acidosis which is being corrected. The patient is awake and alert following commands and answering questions appropriately. She is having some soreness in her chest related to the CPR. The cardiac rhythm is still atrial flutter. No ST segment elevation or depression. Troponins are 0.02, 0.03 and 0.04 respectively 3. Creatinine is at 1.1 after being as high as 1.5 from yesterday. Serum bicarb is at 22 from 14 from yesterday. The hemoglobin currently is at 11.6 with a white cell count of 7.3. 09/29/2021, the patient is doing well. The patient has no specific complaints. No further episodes of cardiac events on cardiac arrest. The patient remains atrial flutter and the patient is anticoagulated with Eliquis. The patient remains on oxygen and the patient is requiring 4 L of O2 by nasal cannula. She is known to have COPD yet she hasn't been oxygen dependent and the patient has been on no home oxygen. The patient has a maintenance fluid unit on outpatient basis. Right lower extremity remains in a splint and continues to be somewhat swollen compared to the left. Otherwise, the patient is doing well. No specific complaints. No chest pain. She did have a bout of diarrhea yesterday 2 and stool for C. diff has been negative. Her echocardiogram showed an ejection fraction of 55%, moderate MR, concentric LVH with questionable left ventricular outflow tract obstruction. There was also mild aortic stenosis. On today's evaluation, the white cycles at 8.2 with hemoglobin of 12 and the patient has a sodium level of 139 with a potassium level of 4.3 BUN of 13 and creatinine of 0.95. Event monitor showed a bout of nonsustained atrial tachycardia and paroxysmal nature fibrillation. The patient is going to undergo cardiac catheterization in a.m. by Dr. Cartwright. 09/30/2000 seen in follow-up. The patient has no specific complaints. She is fairly of any chest pain. No cardiac been noted. Event monitor the admission is shown paroxysmal atrial fibrillation and the patient has also had nonsustained V. tach. Based on that, the patient is going to undergo a cardiac catheterization and the exact timing is not known to be at this point in time. This will be decided by cardiology. She is doing well. She is on IV heparin. There is a concern for GI bleed as the patient's occult stool came back positive for blood. Lobe and was 11 yesterday and down to 10.5 on today's evaluation. She has also had an episode of bradycardia yesterday when she was sleeping. Based on that, I'm recommending to stop the beta blockers for now. No diarrhea. She remains on oxygen and she was weaned down to 2 L of oxygen by nasal desi filiberto. His underlying COPD pedis and spirometer was also provided. No other significant events otherwise for this patient over the past 24 hours. 10/01/2021, the patient is being seen for a follow-up. The patient is still awaiting a cardiac catheterization. The night was uneventful and the patient is not having any arrhythmias. She remains on IV heparin. No bleeding complications. No active issues with pain in the right lower extremity. She is awake and alert and she remains on 4 L of O2 by nasal cannula. No blood work from today shows a white cell count of 6 with a hemoglobin of 11.3, sodium is at 137 with a potassium level of 3.4 and a bicarbonate 27. Objective - Vital Signs Vital signs: Vital Signs Temp 97.9 F 10/01/21 08:00 Pulse 81 10/01/21 11:00 Resp 13 10/01/21 11:00 BP 113/64 10/01/21 11:00 Pulse Ox 90 L 10/01/21 11:00 Intake & Output 09/30/21 10/01/21 10/01/21 18:59 06:59 18:59 Intake Total 1161.62 82 573.863 Output Total 445 458 135 Balance 716.62 -376 438.863 Intake: IV 328 Sodium Chloride 0.9% 1, 328 000 ml In Empty Bag 1 bag @ 1 ML/KG/HR 82 mls/hr IV .[id number] MELINA Rx#: [id number] Intake, IV Titration 201.62 82 245.863 Amount Heparin Sod,Pork in 0.45% 201.62 245.863 NaCl 25,000 unit In 0.45 % NaCl 1 250ml.bag @ 12 UNITS/KG/HR 9.84 mls/hr IV .Q24H MELINA Rx#: [id number] Sodium Chloride 0.9% 1, 0 82 000 ml In Empty Bag 1 bag @ 1 ML/KG/HR 82 mls/hr IV .[id number] MELINA Rx#: [id number] Tube Feeding 960 Output: Urine 445 458 135 Other: Voiding Method Indwelling Catheter - Exam GENERAL: Reclining in bed, awake, tired, no active signs of respiratory distress and the patient is currently on 2 L of O2 by nasal cannula Head exam was generally normal. There was no scleral icterus or corneal arcus. Mucous membranes were moist. EYES: Pupils equal. Conjunctiva normal. HEENT: External appearance of nose and ears normal, oral cavity grossly normal. NECK: JVD not raised; masses not palpable. HEART: Heart sounds irregular; no edema. LUNGS: Respiratory rate normal; decreased breath sounds. ABDOMEN: Soft, nontender, liver spleen not palpable, no masses palpable. PSYCH: Alert and oriented x3; mood and affect normal. MUSCULAR skeletal: Evidence of OA . Dressing right ankle, the patient has a right lower extremity splint Examination of the extremities revealed easily palpable radial, femoral and pedal pulses. There was no cyanosis, clubbing or edema.. The patient has a right lower extremity foot splint applied. - Labs CBC & Chem 7: 10/01/21 04:38 10/01/21 04:38 Labs: Abnormal Lab Results - Last 24 Hours (Table) 10/01/21 10/01/21 10/01/21 Range/Units 04:38 04:38 04:38 RBC 3.58 L (3.80-5.40) m/uL Hgb 11.3 L (11.4-16.0) gm/dL APTT 53.1 H (22.0-30.0) sec Potassium 3.4 L (3.5-5.1) mmol/L Assessment and Plan Plan: 1 acute cardiac arrest, asystole, exact cause is not clear. The exact circumstances for his cardiac arrest is not clear to me at this point. I bel ieve this occurred preoperatively, it could have been a vagal response. Troponins are minimally elevated at this point in time the patient is free of any chest pain. No acute ST segment elevation or depression the patient continues to be in atrial flutter. Silo Worker consult on the patient and review of her event monitor showed that the patient has had approximately atrial fibrillation and episodes of nonsustained ventricular tachycardia. Her previous Chest that showed a fixed defect in the inferior wall without any reversible ischemia. In view of the abnormal troponin and a nonsustained V. tach, the patient is going to undergo a cardiac catheterization tomorrow by cardiology. We are still awaiting cardiac catheterization by cardiology to obtain complete clearance in terms of the cardiac status since patient special with above- mentioned events that occurred. 2 acute the right ankle bimalleolar fracture, the patient underwent closed reduction and placement of the splint 3 COPD 4 history of colon cancer 5 chronic anxiety/depression 6 hypertension 7 chronic atrial flutter 8 acute kidney injury, improving and the creatinine is down to normal 9 non-anion gap metabolic acidosis, currently on a bicarb infusion for replacement of the bicarb deficit and this could have been related to the diarrhea that the patient was having on outpatient basis, serum bicarb is normal 10 degenerative arthritis 11 hypertension 12 diarrhea, negative stool for C. diff. Plan Clinically stable for the past 24 hours and the patient is awaiting cardiac catheterization No reported chest pain or any form of cardiac arrhythmias. Echocardiogram was noted Cardiac catheterization by cardiology as the patient's event monitor also showed a run of nonsustained ventricular tachycardia, this will be done today Continue IV heparin Will monitor the cardiac rhythm another 24 hours here in the intensive care unit and will continue to follow.
[2021-10-01] MEDS ORDERED: HEPARIN SODIUM 1,000 UN/ML (10ML VL) ONE (11:29)
[2021-10-01] MEDS: fentaNYL (PF) 50 MCG/ML 2 ML AMP IV ONE ×3 (11:39→11:54)
[2021-10-01] MEDS ORDERED: MIDAZOLAM 2 MG/2 ML VIAL IV ONE (11:39)
[2021-10-01] MEDS ORDERED: LIDOCAINE 1% INJ 10MG/ML (20 ML MDV) SQ ONE (11:40)
[2021-10-01] MEDS ORDERED: IV FLUID CONTINUATION 800 ML IV ONE ×2 (11:41)
[2021-10-01] MEDS ORDERED: VERAPAMIL SYRINGE (5 MG/10 ML) INTRAARTER ONE (11:43)
[2021-10-01] MEDS ORDERED: HEPARIN SODIUM 1,000 UN/ML (10ML VL) IV ONE (11:55)
[2021-10-01] MEDS ORDERED: IOPAMIDOL-370 125ML BTL INJ ONE (12:02)
[2021-10-01] MEDS ORDERED: RX INFO: IV CONTRAST WAS GIVEN 1 EACH MISC MISCELLANE PRN (12:19)
--- NOTE | 2021-10-01 12:57 | CC ---
CARDIAC CATHETERIZATION REPORT INDICATION: Cardiac arrest, [id number] elevation TN. PROCEDURE NOTE: After obtaining informed consent, left heart catheterization and coronary angiogram were performed via the right radial artery using standard Zully catheters. A pigtail catheter was used to obtain pressure. A 3.5 Zully catheter was used to obtain right and left coronary angiogram. Patient tolerated the procedure well without any obvious immediate complications. She was on IV heparin up until an hour and a half prior to the cardiac catheterization. We gave her 1500 units of IV heparin. Patient received moderate conscious sedation. Total sedation time was 27 minutes. Using a micropuncture needle, I obtained right radial artery access and used a Glidewire to traverse into the ascending aorta, where the catheters were exchanged. The patient received 5 mg of verapamil and heparin as per protocol and a TR band was used for hemostasis as per standard protocol. FINDINGS: HEMODYNAMICS: Left ventricular end-diastolic pressure is 15 mm. There is a gradient of 12 mm across the aortic valve. LEFT VENTRICULOGRAM: Left ventriculogram was not performed. ANGIOGRAPHIC DATA: Right coronary artery. Right coronary artery is a nondominant vessel and is free of significant disease. Left main coronary artery is a normal-sized vessel and is free of significant disease, divides into left anterior descending coronary artery and circumflex coronary artery. LAD shows mild nonobstructive coronary artery disease. Circumflex coronary artery is a large dominant vessel that shows mild nonobstructive disease. CONCLUSIONS: Mild nonobstructive CAD. PLAN: Patient's cardiac event in the perioperative phase is not related to ischemic heart disease. Please proceed with the ankle surgery at this time. Thank you for allowing us to participate in the care of this pleasant lady. MMODL / IJN: [id number] /
[2021-10-01] MEDS: SODIUM CHLORIDE 0.9% 1,000 ML IV SCH (13:00)
--- NOTE | 2021-10-01 15:26 | P.PN ---
Progress Note - Text Progress Note Date: 10/01/21 History presenting complaint: 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 Chronic stable medical conditions include GERD, hypertension, colon cancer, seizure, sciatica, COPD. patient was here in the hospital in February 2021 with right brainstem thalamic stroke. Patient has been noticing last few days that she gets dizzy when she stands up. She's been having anywhere from 3-4 BMs a day. Last few days. Oral intake has been fair. Quite often times she will not have breakfast and lunch and just have her dinner. Patient has known atrial flutter fibrillation for which she is on eliquis. Did not take her medication this morning. Patient got a bit dizzy and lost her balance injuring her right ankle. In the ER x-ray studies confirmed right ankle fracture. No chest pain or palpitation. September 28: Patient was taken to the OR yesterday. Was in atrial flutter. In the perioperative period patient went into a asystole. Received about 1 minute of CPR. Came back. Surgery was postponed. Splint was placed. Patient brought to the ICU. Small troponin leak. Currently sitting up in bed. Eating lunch. Remains in atrial flutter. Being followed by cardiology September 29: ICU. Telemetry shows atrial flutter controlled. Per cardiology patient's previous event monitor showed atrial flutter and possible V. tach. Patient is put on IV heparin plan for cardiac catheterization on . September 6: ICU. IV heparin. Remains in atrial flutter. Pain control in the right leg. Plan for cardiac catheterization tomorrow. October 01: ICU. Patient underwent cardiac catheterization. No significant disease. Atrial flutter. No chest pain or shortness of breath. IV heparin. Patient not scheduled for surgery to few days later. We'll start eliquis Active Medications Acetaminophen (Acetaminophen Tab 325 Mg Tab) 650 mg PO Q6HR PRN PRN Reason: Fever and/ or Pain Alprazolam (Alprazolam 0.5 Mg Tab) 0.5 mg PO BID PRN PRN Reason: Anxiety Last Admin: 09/28/21 21:41 Dose: 0.5 mg Documented by: Apixaban (Apixaban 5 Mg Tab) 5 mg PO BID [facility]; Protocol Aspirin (Aspirin 81 Mg) 81 mg PO DAILY [facility] Last Admin: 10/01/21 08:06 Dose: 81 mg Documented by: Atorvastatin Calcium (Atorvastatin 40 Mg Tab) 40 mg PO HS [facility] Last Admin: 09/30/21 20:17 Dose: 40 mg Documented by: Budesonide/Formoterol Fumarate (Symbicort 160-4.5 Mcg Inhaler) 2 puff INHALATION RT-BID [facility] Last Admin: 10/01/21 07:29 Dose: 2 puff Documented by: Bupropion HCl (Bupropion Xl 300 Mg Tab.Er.24h) 300 mg PO DAILY [facility] Last Admin: 09/30/21 10:10 Dose: 300 mg Documented by: Diphenoxylate HCl/Atropine (Diphenox-Atrop 2.5-0.025 Mg 1 Each Tab) 2 each PO BID PRN PRN Reason: Diarrhea Last Admin: 09/30/21 20:17 Dose: 2 each Documented by: Gabapentin (Gabapentin 300 Mg Cap) 300 mg PO HS [facility] Last Admin: 09/30/21 20:17 Dose: 300 mg Documented by: Sodium Chloride (Saline 0.9%) 1,000 mls @ 75 mls/hr IV .[id number] [facility] Last Admin: 10/01/21 13:00 Dose: Not Given Documented by: Miscellaneous Information (Rx Info: Iv Contrast Was Given 1 Each Misc) 1 each MISCELLANE DAILY PRN PRN Reason: Per Protocol Stop: 10/03/21 12:19 Oxybutynin Chloride (Oxybutynin 10 Mg Tab.Er.24) 10 mg PO DAILY [facility] Last Admin: 10/01/21 08:06 Dose: 10 mg Documented by: Paroxetine HCl (Paroxetine 20 Mg Tab) 40 mg PO DAILY [facility] Last Admin: 10/01/21 08:06 Dose: 40 mg Documented by: Past medical history to include: Colon cancer treated with chemotherapy and surgery in 2016, sciatica, essential hypertension, GERD, COPD. Acute right brainstem thalamic stroke in February 2021 Social history: . Smoked less than a pack a day for 45 years stopped in 2016. Alcohol occasionally. Family history: Bladder cancer Physical examination: VITAL SIGNS: Afebrile, 80, 18, 110/78, 94% GENERAL: Reclining in bed awake, EYES: Pupils equal. Conjunctiva normal. HEENT: External appearance of nose and ears normal, oral cavity grossly normal. NECK: JVD not raised; masses not palpable. HEART: Heart sounds irregular; no edema. LUNGS: Respiratory rate normal; decreased breath sounds. ABDOMEN: Soft, nontender, liver spleen not palpable, no masses palpable. PSYCH: Alert and oriented x3; mood and affect normal. MUSCULAR skeletal: Evidence of OA . Right ankle in the splint dressing INVESTIGATIONS, reviewed in the clinical context: October 01: White count 6 hemoglobin 11.3 potassium 3.4 creatinine 1.0 September 30: Echo 6.9 hemoglobin 10.5 2-D echocardiogram: Severe concentric LVH. EF 55-60%. Possible LVOT obstruction. Moderate MR. September 29: White count 8.9 hemoglobin 12 potassium 4.3 at 0.95 September 28: White count 7.3 hemoglobin 11.6 potassium 3.4 BUN 18 creatinine 1.18 Troponin I 0.026, 0.035 0.064 C. diff: Negative White count 12.9 hemoglobin 13.8 platelets 286 potassium 4.1 BUN 24 creatinine 1.5 EKG tracing personally reviewed by me atrial flutter rate around 80 Chest x-ray film personally reviewed by me-some hyperinflation. Atelectasis. X-ray complete right: Unstable trimalleolar fracture subluxation right ankle Previous labs: February 2021 March 06: Creatinine 1.07 Assessment and plan: -Acute right ankle trimalleolar fracture secondary to fall Close reduction and long leg splint. Full surgery postponed. By Dr. John -IV heparin monitoring: Discontinue Follow PTT -COPD in a X smoker trelegy -Primary osteoarthritis Pain medications as needed -Hypertensive heart disease -Chronic urinary stress incontinence Detrol LA 4 mg daily -Troponin leak likely from hemodynamic mismatch from. / asystole For cardiac catheterization on . -Anxietynot otherwise specified Xanax 0.5 mg twice a day when necessary, Paxil 40 mg daily -Essential hypertension Monitor blood pressure -Persistent atrial flutter fibrillation: Rate controlled Resume eliquis. -Acute kidney injury from patient having diarrhea: Better. Admission creatinine 1.5 -Acute metabolic acidosis from diarrhea: Resolved Stop IV heparin. Resume eliquis. Discussed with patient. Foot surgery down the road. Should be able to be discharged tomorrow to rehab.
[2021-10-01] MEDS: HEPARIN SOD,PORK IN 0.45% NACL 25,000 UNIT in 0.45% NACL 1 250ML.BAG IV SCH (17:45)
[2021-10-01] MEDS ORDERED: HEPARIN SOD,PORK IN 0.45% NACL 25,000 UNIT in 0.45% NACL 1 250ML.BAG IV SCH (18:00)
[2021-10-01] MEDS: GABAPENTIN 300 MG CAP PO SCH (22:21)
[2021-10-01] MEDS: APIXABAN 5 MG TAB PO SCH (22:21)
[2021-10-01] MEDS: ATORVASTATIN 40 MG TAB PO SCH (22:21)
[2021-10-02] MEDS: ALPRAZolam 0.5 MG TAB PO PRN
[2021-10-02] MEDS: SODIUM CHLORIDE 0.9% 1,000 ML IV SCH (02:54)
[2021-10-02] MEDS: OXYBUTYNIN 10 MG TAB.ER.24 PO SCH (08:16)
[2021-10-02] MEDS: PARoxetine 20 MG TAB PO SCH (08:16)
[2021-10-02] MEDS: buPROPion XL 300 MG TAB.ER.24H PO SCH (08:16)
[2021-10-02] MEDS: ASPIRIN 81 MG PO SCH (08:16)
[2021-10-02] MEDS: APIXABAN 5 MG TAB PO SCH ×2 (08:16→20:46)
[2021-10-02] MEDS: SYMBICORT 160-4.5 MCG INHALER INHALATION SCH ×2 (08:59→20:25)
[2021-10-02 09:27] LABS: Basophils % (A) 0 %; Eosinophils # (A) 0.1 k/uL (0-0.7); Eosinophils % (A) 1 %; HCT 34.9 % (34.0-46.0); HGB 10.9 gm/dL (11.4-16.0); Hypochromasia Slight; Lymphocytes # (A) 0.8 k/uL (1.0-4.8); Lymphocytes % (A) 15 %; MCH 30.8 pg (25.0-35.0); MCHC 31.3 g/dL (31.0-37.0); MCV 98.5 fL (80.0-100.0); Mean Platelet Volume 7.6; Monocytes # (A) 0.5 k/uL (0-1.0); Monocytes % (A) 10 %; Neutrophils # (A) 3.5 k/uL (1.3-7.7); Neutrophils % (A) 69 %; Platelet Count 309 k/uL (150-450); RBC 3.55 m/uL (3.80-5.40); RDW 14.2 % (11.5-15.5)
[2021-10-02 09:44] LABS: Calcium 8.5 mg/dL (8.4-10.2); Potassium 3.4 mmol/L (3.5-5.1)
[2021-10-02 11:03] VITALS: BMI 31.0
[2021-10-02] MEDS: DEXTROSE 5% IN WATER 1,000 ML with SODIUM BICARB (1 MEQ/ML) 150 ML IV SCH (11:47)
--- NOTE | 2021-10-02 13:13 | P.PN ---
Subjective Progress Note Date: 10/02/21 this is a 71-year-old female patient With known history of COPD and various other comorbidities including colon cancer, colectomy and previous current chemotherapy and the patient has been in remission. The patient was also hospitalized back in February 2021 for a right sided brainstem thalamic stroke. The patient was found to have atrial flutter and the patient admitted on long- term anticoagulation on outpatient basis. Note that the patient came into the hospital after she had a fall at home and she had a right sided bimalleolar ankle fracture. Based on that, the patient was taken to the operating room yesterday and the patient was found to have significant amount of swelling where closed reduction was done in the cast/splint was applied pending further/future surgical repair. Noted the patient was taken to the operating room. She was atrial flutter. I believe intraoperatively, the patient went into a period of asystole and the patient required CPR for a total of 1 minutes. I believe the patient was not given any epinephrine or atropine. The patient will receive CPR. Surgery was postponed and the splint was applied and the patient was sent to the intensive care unit. Noted the patient has had a recent cardiac evaluation including a recent cardiac stress of that was done through [facility] and she was told that the results were within normal limits. In any rate, the patient is currently in the intensive care unit. She did not require any pressors. She is on 4 L of oxygen by nasal cannula. She had developed an acute kidney injury and the patient also has a component of non-anion gap metabolic acidosis which is being corrected. The patient is awake and alert following commands and answering questions appropriately. She is having some soreness in her chest related to the CPR. The cardiac rhythm is still atrial flutter. No ST segment elevation or depression. Troponins are 0.02, 0.03 and 0.04 respectively 3. Creatinine is at 1.1 after being as high as 1.5 from yesterday. Serum bicarb is at 22 from 14 from yesterday. The hemoglobin currently is at 11.6 with a white cell count of 7.3. 09/29/2021, the patient is doing well. The patient has no specific complaints. No further episodes of cardiac events on cardiac arrest. The patient remains atrial flutter and the patient is anticoagulated with Eliquis. The patient remains on oxygen and the patient is requiring 4 L of O2 by nasal cannula. She is known to have COPD yet she hasn't been oxygen dependent and the patient has been on no home oxygen. The patient has a maintenance fluid unit on outpatient basis. Right lower extremity remains in a splint and continues to be somewhat swollen compared to the left. Otherwise, the patient is doing well. No specific complaints. No chest pain. She did have a bout of diarrhea yesterday 2 and stool for C. diff has been negative. Her echocardiogram showed an ejection fraction of 55%, moderate MR, concentric LVH with questionable left ventricular outflow tract obstruction. There was also mild aortic stenosis. On today's evaluation, the white cycles at 8.2 with hemoglobin of 12 and the patient has a sodium level of 139 with a potassium level of 4.3 BUN of 13 and creatinine of 0.95. Event monitor showed a bout of nonsustained atrial tachycardia and paroxysmal nature fibrillation. The patient is going to undergo cardiac catheterization in a.m. by Dr. Cartwright. 09/30/2000 seen in follow-up. The patient has no specific complaints. She is fairly of any chest pain. No cardiac been noted. Event monitor the admission is shown paroxysmal atrial fibrillation and the patient has also had nonsustained V. tach. Based on that, the patient is going to undergo a cardiac catheterization and the exact timing is not known to be at this point in time. This will be decided by cardiology. She is doing well. She is on IV heparin. There is a concern for GI bleed as the patient's occult stool came back positive for blood. Lobe and was 11 yesterday and down to 10.5 on today's evaluation. She has also had an episode of bradycardia yesterday when she was sleeping. Based on that, I'm recommending to stop the beta blockers for now. No diarrhea. She remains on oxygen and she was weaned down to 2 L of oxygen by nasal desi filiberto. His underlying COPD pedis and spirometer was also provided. No other significant events otherwise for this patient over the past 24 hours. 10/01/2021, the patient is being seen for a follow-up. The patient is still awaiting a cardiac catheterization. The night was uneventful and the patient is not having any arrhythmias. She remains on IV heparin. No bleeding complications. No active issues with pain in the right lower extremity. She is awake and alert and she remains on 4 L of O2 by nasal cannula. No blood work from today shows a white cell count of 6 with a hemoglobin of 11.3, sodium is at 137 with a potassium level of 3.4 and a bicarbonate 27. On the 10/02/2021 patient seen in follow-up on selective care unit. She is resting in bed, does not appear to be in any acute distress, mildly short of breath, she states she continues to have frequent diarrhea. She was tested for C. diff and she was negative. She denies any worsening cough, no chest pain, she's been afebrile, on 4 L of oxygen pulse ox 94%. Today's labs have been reviewed, with Bentyl, Cipro 0.0, hemoglobin is 10.9, sodium is 139, potassium is 3.4, heart is 110, CO2 is 17, BUN is 15 creatinine 0.94. Patient underwent cardiac catheterization which showed mild nonobstructive CAD. She denies any chest pain or pressure. Objective - Vital Signs Vital signs: Vital Signs Temp 98.6 F 10/02/21 11:55 Pulse 56 L 10/02/21 11:55 Resp 20 10/02/21 11:55 BP 128/72 10/02/21 11:55 Pulse Ox 94 L 10/02/21 11:55 Intake & Output 10/01/21 10/02/21 10/02/21 18:59 06:59 18:59 Intake Total 1511.863 300 Output Total 326 750 250 Balance 1185.863 -450 -250 Weight 82 kg Intake: IV 1028 Sodium Chloride 0.9% 1, 628 000 ml In Empty Bag 1 bag @ 1 ML/KG/HR 82 mls/hr IV .[id number] MELINA Rx#: [id number] Intake, IV Titration 245.863 Amount Heparin Sod,Pork in 0.45% 245.863 NaCl 25,000 unit In 0.45 % NaCl 1 250ml.bag @ 12 UNITS/KG/HR 9.84 mls/hr IV .Q24H MELINA Rx#: [id number] Oral 238 300 Output: Urine 325 750 250 Uretheral (Renae) 250 Stool 1 Other: Voiding Method Indwelling Catheter Indwelling Catheter Indwelling Catheter - Exam GENERAL EXAM: Alert, very pleasant, 71-year-old white female, on 4 L of oxygen pulse ox of 94%, mildly short of breath at rest, but appears to be no acute distress HEAD: Normocephalic/atraumatic. EYES: Normal reaction of pupils, equal size. Conjunctiva pink, sclera white. NOSE: Clear with pink turbinates. THROAT: No erythema or exudates. NECK: No masses, no JVD, no thyroid enlargement, no adenopathy. CHEST: No chest wall deformity. Symmetrical expansion. LUNGS: Equal air entry with no crackles, wheeze, rhonchi or dullness. CVS: Regular rate and rhythm, normal S1 and S2, no gallops, no murmurs, no rubs ABDOMEN: Soft, nontender. No hepatosplenomegaly, normal bowel sounds, no guarding or rigidity. EXTREMITIES: No clubbing, no edema, no cyanosis, 2+ pulses and upper and lower extremities. MUSCULOSKELETAL: Muscle strength and tone normal. SPINE: No scoliosis or deformity SKIN: No rashes CENTRAL NERVOUS SYSTEM: Alert and oriented -3. No focal deficits, tone is normal in all 4 extremities. PSYCHIATRIC: Alert and oriented -3. Appropriate affect. Intact judgment and insight. - Labs CBC & Chem 7: 10/02/21 08:35 10/02/21 08:35 Labs: Abnormal Lab Results - Last 24 Hours (Table) 10/02/21 10/02/21 Range/Units 08:35 08:35 RBC 3.55 L (3.80-5.40) m/uL Hgb 10.9 L (11.4-16.0) gm/dL Lymphocytes # 0.8 L (1.0-4.8) k/uL Potassium 3.4 L (3.5-5.1) mmol/L Chloride 110 H (98-107) mmol/L Carbon Dioxide 17 L (22-30) mmol/L Glucose 135 H (74-99) mg/dL Assessment and Plan Plan: acute cardiac arrest, asystole, exact cause is not clear. The exact circumstances for his cardiac arrest is not clear to me at this point. I believe this occurred preoperatively, it could have been a vagal response. Troponins are minimally elevated at this point in time the patient is free of any chest pain. No acute ST segment elevation or depression the patient continues to be in atrial flutter. Senior Pl Sql Developer consult on the patient and review of her event monitor showed that the patient has had approximately atrial fibrillation and episodes of nonsustained ventricular tachycardia. Her previous Chest that showed a fixed defect in the inferior wall without any reversible ischemia. In view of the abnormal troponin and a nonsustained V. tach, cardiac catheterization showed mild CAD acute the right ankle bimalleolar fracture, the patient underwent closed reduction and placement of the splint COPD history of colon cancer chronic anxiety/depression hypertension chronic atrial flutter acute kidney injury, improving and the creatinine is down to normal non-anion gap metabolic acidosis, currently on a bicarb infusion for replacement of the bicarb deficit and this could have been related to the diarrhea degenerative arthritis hypertension diarrhea, negative stool for C. diff. Plan: No acute events overnight No complaints of chest discomfort Today's labs reviewed showing non-anion gap metabolic acidosis likely related to diarrhea We'll place the patient on bicarbonate infusion Recheck electrolytes and renal profile tomorrow Continue Symbicort Continue to follow her clinical course I have personally seen and examined the patient, performed the documentation and the assessment and plan as written. Number of minutes spent on the visit: 10 This is a split shared evaluation that was done along with a nurse practitioner. I was involved in more than 90% of this evaluation in terms of history taking, examination decision making. This information was done more than 20 minutes. I noted the results of the cardiac catheterization. The cardiac cath is within normal limits. Based on this, there is a station for this patient's cardiac arrest that occurred. i'm going to leave the decision for any further workup to vascular physician. For the most part, the patient is stable. She is out of the intensive care unit for now. Her COPD is stable. She remains on oxygen at 4 L which is be gradually weaned off. The patient is still having diarrhea. The patient is a component of non-anion gap metabolic acidosis. She was started on a bicarb infusion. We'll continue to follow. Time with Patient: Less than 30
--- NOTE | 2021-10-02 13:39 | P.PN ---
Progress Note - Text Progress Note Date: 10/02/21 History presenting complaint: 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 Chronic stable medical conditions include GERD, hypertension, colon cancer, seizure, sciatica, COPD. patient was here in the hospital in February 2021 with right brainstem thalamic stroke. Patient has been noticing last few days that she gets dizzy when she stands up. She's been having anywhere from 3-4 BMs a day. Last few days. Oral intake has been fair. Quite often times she will not have breakfast and lunch and just have her dinner. Patient has known atrial flutter fibrillation for which she is on eliquis. Did not take her medication this morning. Patient got a bit dizzy and lost her balance injuring her right ankle. In the ER x-ray studies confirmed right ankle fracture. No chest pain or palpitation. September 28: Patient was taken to the OR yesterday. Was in atrial flutter. In the perioperative period patient went into a asystole. Received about 1 minute of CPR. Came back. Surgery was postponed. Splint was placed. Patient brought to the ICU. Small troponin leak. Currently sitting up in bed. Eating lunch. Remains in atrial flutter. Being followed by cardiology September 29: ICU. Telemetry shows atrial flutter controlled. Per cardiology patient's previous event monitor showed atrial flutter and possible V. tach. Patient is put on IV heparin plan for cardiac catheterization on . September 6: ICU. IV heparin. Remains in atrial flutter. Pain control in the right leg. Plan for cardiac catheterization tomorrow. October 01: ICU. Patient underwent cardiac catheterization. No significant disease. Atrial flutter. No chest pain or shortness of breath. IV heparin. Patient not scheduled for surgery to few days later. We'll start eliquis October 02: Moved out of the ICU. Atrial flutter controlled. On eliquis. Acidotic. Started on bicarbonate drip by pulmonary. Eating fair. Active Medications Acetaminophen (Acetaminophen Tab 325 Mg Tab) 650 mg PO Q6HR PRN PRN Reason: Fever and/ or Pain Alprazolam (Alprazolam 0.5 Mg Tab) 0.5 mg PO BID PRN PRN Reason: Anxiety Last Admin: 10/02/21 00:00 Dose: 0.5 mg Documented by: Apixaban (Apixaban 5 Mg Tab) 5 mg PO BID [facility]; Protocol Last Admin: 10/02/21 08:16 Dose: 5 mg Documented by: Aspirin (Aspirin 81 Mg) 81 mg PO DAILY [facility] Last Admin: 10/02/21 08:16 Dose: 81 mg Documented by: Atorvastatin Calcium (Atorvastatin 40 Mg Tab) [address] [facility] Last Admin: 10/01/21 22:21 Dose: 40 mg Documented by: Budesonide/Formoterol Fumarate (Symbicort 160-4.5 Mcg Inhaler) 2 puff INHALATION RT-BID [facility] Last Admin: 10/02/21 08:59 Dose: 2 puff Documented by: Bupropion HCl (Bupropion Xl 300 Mg Tab.Er.24h) 300 mg PO DAILY [facility] Last Admin: 10/02/21 08:16 Dose: 300 mg Documented by: Diphenoxylate HCl/Atropine (Diphenox-Atrop 2.5-0.025 Mg 1 Each Tab) 2 each PO BID PRN PRN Reason: Diarrhea Last Admin: 09/30/21 20:17 Dose: 2 each Documented by: Gabapentin (Gabapentin 300 Mg Cap) [address] [facility] Last Admin: 10/01/21 22:21 Dose: 300 mg Documented by: Sodium Bicarbonate 150 ml/ (Dextrose/Water) 1,150 mls @ 100 mls/hr IV .[id number] [facility] Last Admin: 10/02/21 11:47 Dose: 100 mls/hr Documented by: Miscellaneous Information (Rx Info: Iv Contrast Was Given 1 Each Misc) 1 each MISCELLANE DAILY PRN PRN Reason: Per Protocol Stop: 10/03/21 12:19 Oxybutynin Chloride (Oxybutynin 10 Mg Tab.Er.24) 10 mg PO DAILY [facility] Last Admin: 10/02/21 08:16 Dose: 10 mg Documented by: Paroxetine HCl (Paroxetine 20 Mg Tab) 40 mg PO DAILY [facility] Last Admin: 10/02/21 08:16 Dose: 40 mg Documented by: Past medical history to include: Colon cancer treated with chemotherapy and surgery in 2015, sciatica, essential hypertension, GERD, COPD. Acute right brainstem thalamic stroke in February 2021 Social history: . Smoked less than a pack a day for 45 years stopped in 2016. Alcohol occasionally. Family history: Bladder cancer Physical examination: VITAL SIGNS: 98.6, 86, 20, 128/72, 94% on 4 L GENERAL: Reclining in bed comfortable, EYES: Pupils equal. Conjunctiva normal. HEENT: External appearance of nose and ears normal, oral cavity grossly normal. NECK: JVD not raised; masses not palpable. HEART: Heart sounds irregular; no edema. LUNGS: Respiratory rate normal; decreased breath sounds. ABDOMEN: Soft, nontender, liver spleen not palpable, no masses palpable. PSYCH: Alert and oriented x3; mood and affect normal. MUSCULAR skeletal: Evidence of OA . Right ankle in the splint dressing INVESTIGATIONS, reviewed in the clinical context: October 02: 15 hemoglobin 10.9 potassium 3.4 creatinine 0.94 bicarb 17 October 01: White count 6 hemoglobin 11.3 potassium 3.4 creatinine 1.0 September 30: Echo 6.9 hemoglobin 10.5 2-D echocardiogram: Severe concentric LVH. EF 55-60%. Possible LVOT obstruction. Moderate MR. September 29: White count 8.9 hemoglobin 12 potassium 4.3 at 0.95 September 28: White count 7.3 hemoglobin 11.6 potassium 3.4 BUN 18 creatinine 1.18 Troponin I 0.026, 0.035 0.064 C. diff: Negative White count 12.9 hemoglobin 13.8 platelets 286 potassium 4.1 BUN 24 creatinine 1.5 EKG tracing personally reviewed by me atrial flutter rate around 80 Chest x-ray film personally reviewed by me-some hyperinflation. Atelectasis. X-ray complete right: Unstable trimalleolar fracture subluxation right ankle Previous labs: February 2021 March 06: Creatinine 1.07 Assessment and plan: -Acute right ankle trimalleolar fracture secondary to fall Close reduction and long leg splint. Full surgery postponed. By Dr. John -IV heparin monitoring: Discontinued Follow PTT -COPD in a X smoker trelegy -Primary osteoarthritis Pain medications as needed -Hypertensive heart disease -Chronic urinary stress incontinence Detrol LA 4 mg daily -Troponin leak likely from hemodynamic mismatch from. / asystole Cardiac catheterization showed minimal CAD. -Anxietynot otherwise specified Xanax 0.5 mg twice a day when necessary, Paxil 40 mg daily -Essential hypertension Monitor blood pressure -Persistent atrial flutter fibrillation: Rate controlled eliquis. -Acute kidney injury from patient having diarrhea: Better. Admission creatinine 1.5 -Acute metabolic acidosis from diarrhea: Bicarbonate drip. Continue current medications. Started on bicarbonate drip per pulmonary. Follow labs.
[2021-10-02] MEDS ORDERED: Potassium Replacement Protocol 1 EACH MISC MISCELLANE PRN (13:40)
[2021-10-02] MEDS ORDERED: POTASSIUM CHLORIDE ER 20 MEQ TAB.ER PO STA (13:41)
--- NOTE | 2021-10-02 13:46 | P.PN ---
Subjective This is a pleasant 71-year-old female past medical history significant for hypertension, GERD, colon cancer, seizure disorder, [place], COPD. Patient was admitted to this hospital in February 2021 with right brain stem thalamic stroke. She quit smoking in 2016. She follows in the office with Dr. Key. Subsequently she had follow-up with Dr. Key and apparently had given monitor and stress test. She was diagnosed to have atrial fibrillation and was initiated on metoprolol succinate 25 mg along with anticoagulation therapy. Patient initially presented 09/27/21 to the hospital with dizziness and a fall resulting in fracture of the ankle. Patient was taken to the OR have surgery on to fix the ankle fracture. Patient was significant amount of swelling where closed reduction was done in the cast/splint was applied pending further/future surgical repair. However, patient apparently developed a cardiac arrhythmia and it appeared that patient had a long pause. She required CPR and was transferred to the ICU. Patients troponins were elevated 0.03, 0.04, 0.06. Echo revealed EF 5560%, mild aortic stenosis peak/mean gradient of 38/19 mmHg, moderate mitral regurgitation, mild tricuspid regurgitation She underwent cardiac catheterization Dr. Key on 10/01/2021 which revealed nonobstructive coronary artery disease. 10/02/2021 Patient seen at bedside, no acute distress. Continues to have diarrhea. She states she is tired. No chest pain or shortness of breath. Telemetry reviewed, patient in atrial flutter with controlled ventricular rates, heart rate in the 50s. She has been maintained on Eliquis 5 mg twice a day, aspirin 80 mg daily, atorvastatin 40 mg nightly. Last, WBC 5.0, hemoglobin 10.9, platelets 309, sodium 139, potassium 3.4, BUN 15, serum creatinine 0.9 GENERAL: Well-appearing, well-nourished and in no acute distress. NECK: Supple without JVD or thyromegaly. LUNGS: Breath sounds clear to auscultation bilaterally. Respiration equal and unlabored. No wheezes, rales or rhonchi. HEART: Irregular rate and rhythm without murmurs, rubs or gallops. S1 and S2 heard. EXTREMITIES: Normal range of motion, no edema. No clubbing or cyanosis. Peripheral pulses intact. ASSESSMENT Concern for possible arrythmia vs asytole in the OR on 09/27/21, requiring CPR for about 1 minute per documentation, unclear etiology. Typical atrial flutter Non-obstructive CAD Troponin mildly elevated not indicative of acute coronary syndrome, Echo with normal EF, and cath with non-obstructive CAD Paroxysmal atrial fibrillation History of hypertension History of CVA History of seizure disorder History of COPD Diarrhea, C diff negative PLAN From a cardiology perspective patient is stable. Replace potassium per protocol Monitor renal function and electrolytes Continue Eliquis and statin Follow up with Dr. Key outpatient. Nurse Practitioner note has been reviewed, I agree with a documented findings and plan of care. Patient was seen and examined. Objective - Vital Signs Vital signs: Vital Signs Temp 98.6 F 10/02/21 11:55 Pulse 56 L 10/02/21 11:55 Resp 20 10/02/21 11:55 BP 128/72 10/02/21 11:55 Pulse Ox 94 L 10/02/21 11:55 Intake & Output 10/01/21 10/02/21 10/02/21 18:59 06:59 18:59 Intake Total 1511.863 300 Output Total 326 750 250 Balance 1185.863 -450 -250 Weight 82 kg Intake: IV 1028 Sodium Chloride 0.9% 1, 628 000 ml In Empty Bag 1 bag @ 1 ML/KG/HR 82 mls/hr IV .[id number] MELINA Rx#: [id number] Intake, IV Titration 245.863 Amount Heparin Sod,Pork in 0.45% 245.863 NaCl 25,000 unit In 0.45 % NaCl 1 250ml.bag @ 12 UNITS/KG/HR 9.84 mls/hr IV .Q24H MELINA Rx#: [id number] Oral 238 300 Output: Urine 325 750 250 Uretheral (Renae) 250 Stool 1 Other: Voiding Method Indwelling Catheter Indwelling Catheter Indwelling Catheter - Labs CBC & Chem 7: 10/02/21 08:35 10/02/21 08:35 Labs: Abnormal Lab Results - Last 24 Hours (Table) 10/02/21 10/02/21 Range/Units 08:35 08:35 RBC 3.55 L (3.80-5.40) m/uL Hgb 10.9 L (11.4-16.0) gm/dL Lymphocytes # 0.8 L (1.0-4.8) k/uL Potassium 3.4 L (3.5-5.1) mmol/L Chloride 110 H (98-107) mmol/L Carbon Dioxide 17 L (22-30) mmol/L Glucose 135 H (74-99) mg/dL
[2021-10-02] MEDS: GABAPENTIN 300 MG CAP PO SCH (20:46)
[2021-10-02] MEDS: ATORVASTATIN 40 MG TAB PO SCH (20:46)
[2021-10-03] MEDS: DEXTROSE 5% IN WATER 1,000 ML with SODIUM BICARB (1 MEQ/ML) 150 ML IV SCH (00:33)
[2021-10-03] MEDS: SYMBICORT 160-4.5 MCG INHALER INHALATION SCH ×2 (08:02→20:12)
[2021-10-03 08:27] LABS: Potassium 2.7 mmol/L (3.5-5.1)
[2021-10-03] MEDS: OXYBUTYNIN 10 MG TAB.ER.24 PO SCH (08:54)
[2021-10-03] MEDS: ASPIRIN 81 MG PO SCH (08:54)
[2021-10-03] MEDS: buPROPion XL 300 MG TAB.ER.24H PO SCH (08:54)
[2021-10-03] MEDS: POTASSIUM CHLORIDE ER 20 MEQ TAB.ER PO SCH ×3 (08:54→11:48)
[2021-10-03] MEDS: PARoxetine 20 MG TAB PO SCH (08:54)
[2021-10-03] MEDS: DIPHENOX-ATROP 2.5-0.025 MG 1 EACH TAB PO PRN ×2 (08:54→23:28)
[2021-10-03] MEDS: APIXABAN 5 MG TAB PO SCH ×2 (08:54→20:29)
--- NOTE | 2021-10-03 12:18 | P.PN ---
Subjective Progress Note Date: 10/03/21 this is a 71-year-old female patient With known history of COPD and various other comorbidities including colon cancer, colectomy and previous current chemotherapy and the patient has been in remission. The patient was also hospitalized back in February 2021 for a right sided brainstem thalamic stroke. The patient was found to have atrial flutter and the patient admitted on long- term anticoagulation on outpatient basis. Note that the patient came into the hospital after she had a fall at home and she had a right sided bimalleolar ankle fracture. Based on that, the patient was taken to the operating room yesterday and the patient was found to have significant amount of swelling where closed reduction was done in the cast/splint was applied pending further/future surgical repair. Noted the patient was taken to the operating room. She was atrial flutter. I believe intraoperatively, the patient went into a period of asystole and the patient required CPR for a total of 1 minutes. I believe the patient was not given any epinephrine or atropine. The patient will receive CPR. Surgery was postponed and the splint was applied and the patient was sent to the intensive care unit. Noted the patient has had a recent cardiac evaluation including a recent cardiac stress of that was done [facility] and she was told that the results were within normal limits. In any rate, the patient is currently in the intensive care unit. She did not require any pressors. She is on 4 L of oxygen by nasal cannula. She had developed an acute kidney injury and the patient also has a component of non-anion gap metabolic acidosis which is being corrected. The patient is awake and alert following commands and answering questions appropriately. She is having some soreness in her chest related to the CPR. The cardiac rhythm is still atrial flutter. No ST segment elevation or depression. Troponins are 0.02, 0.03 and 0.04 respectively 3. Creatinine is at 1.1 after being as high as 1.5 from yesterday. Serum bicarb is at 22 from 14 from yesterday. The hemoglobin currently is at 11.6 with a white cell count of 7.3. 09/29/2021, the patient is doing well. The patient has no specific complaints. No further episodes of cardiac events on cardiac arrest. The patient remains atrial flutter and the patient is anticoagulated with Eliquis. The patient remains on oxygen and the patient is requiring 4 L of O2 by nasal cannula. She is known to have COPD yet she hasn't been oxygen dependent and the patient has been on no home oxygen. The patient has a maintenance fluid unit on outpatient basis. Right lower extremity remains in a splint and continues to be somewhat swollen compared to the left. Otherwise, the patient is doing well. No specific complaints. No chest pain. She did have a bout of diarrhea yesterday 2 and stool for C. diff has been negative. Her echocardiogram showed an ejection fraction of 55%, moderate MR, concentric LVH with questionable left ventricular outflow tract obstruction. There was also mild aortic stenosis. On today's evaluation, the white cycles at 8.2 with hemoglobin of 12 and the patient has a sodium level of 139 with a potassium level of 4.3 BUN of 13 and creatinine of 0.95. Event monitor showed a bout of nonsustained atrial tachycardia and paroxysmal nature fibrillation. The patient is going to undergo cardiac catheterization in a.m. by Dr. Cartwright. 09/30/2000 seen in follow-up. The patient has no specific complaints. She is fairly of any chest pain. No cardiac been noted. Event monitor the admission is shown paroxysmal atrial fibrillation and the patient has also had nonsustained V. tach. Based on that, the patient is going to undergo a cardiac catheterization and the exact timing is not known to be at this point in time. This will be decided by cardiology. She is doing well. She is on IV heparin. There is a concern for GI bleed as the patient's occult stool came back positive for blood. Lobe and was 11 yesterday and down to 10.5 on today's evaluation. She has also had an episode of bradycardia yesterday when she was sleeping. Based on that, I'm recommending to stop the beta blockers for now. No diarrhea. She remains on oxygen and she was weaned down to 2 L of oxygen by nasal desi filiberto. His underlying COPD pedis and spirometer was also provided. No other significant events otherwise for this patient over the past 24 hours. 10/01/2021, the patient is being seen for a follow-up. The patient is still awaiting a cardiac catheterization. The night was uneventful and the patient is not having any arrhythmias. She remains on IV heparin. No bleeding complications. No active issues with pain in the right lower extremity. She is awake and alert and she remains on 4 L of O2 by nasal cannula. No blood work from today shows a white cell count of 6 with a hemoglobin of 11.3, sodium is at 137 with a potassium level of 3.4 and a bicarbonate 27. On the 10/02/2021 patient seen in follow-up on [facility] care unit. She is resting in bed, does not appear to be in any acute distress, mildly short of breath, she states she continues to have frequent diarrhea. She was tested for C. diff and she was negative. She denies any worsening cough, no chest pain, she's been afebrile, on 4 L of oxygen pulse ox 94%. Today's labs have been reviewed, with Bentyl, Cipro 0.0, hemoglobin is 10.9, sodium is 139, potassium is 3.4, heart is 110, CO2 is 17, BUN is 15 creatinine 0.94. Patient underwent cardiac catheterization which showed mild nonobstructive CAD. She denies any chest pain or pressure. 10/03/2021, the patient's condition is stable. No new complaints since she cont inues to have diarrhea. She was on a bicarb infusion and the non-anion gap metabolic acidosis has been replenished and recovered and the patient's bicarb deficit has been replenished. Otherwise, the patient may need to be seen by Gastro regarding her ongoing diarrhea. Her cardiac status is stable for now. She remains on 4 L of O2 by nasal cannula. She is on long-term anticoagulation with Eliquis 5 mg by mouth twice a day. She is on aspirin. Cardiac catheterization was negative for any CAD. Objective - Vital Signs Vital signs: Vital Signs Temp 97.9 F 10/03/21 08:00 Pulse 62 10/03/21 08:00 Resp 18 10/03/21 08:00 BP 112/56 10/03/21 08:00 Pulse Ox 90 L 10/03/21 08:10 Intake & Output 10/02/21 10/03/21 10/03/21 18:59 06:59 18:59 Intake Total 200 120 Output Total 250 800 Balance -250 -600 120 Weight 82 kg Intake: Oral 200 120 Output: Urine 250 800 Uretheral (Renae) 250 Other: Voiding Method Indwelling Catheter # Bowel Movements 3 - Exam GENERAL EXAM: Alert, very pleasant, 71-year-old white female, on 4 L of oxygen pulse ox of 94%, mildly short of breath at rest, but appears to be no acute dist ress HEAD: Normocephalic/atraumatic. EYES: Normal reaction of pupils, equal size. Conjunctiva pink, sclera white. NOSE: Clear with pink turbinates. THROAT: No erythema or exudates. NECK: No masses, no JVD, no thyroid enlargement, no adenopathy. CHEST: No chest wall deformity. Symmetrical expansion. LUNGS: Equal air entry with no crackles, wheeze, rhonchi or dullness. CVS: Regular rate and rhythm, normal S1 and S2, no gallops, no murmurs, no rubs ABDOMEN: Soft, nontender. No hepatosplenomegaly, normal bowel sounds, no guarding or rigidity. EXTREMITIES: No clubbing, no edema, no cyanosis, 2+ pulses and upper and lower extremities. MUSCULOSKELETAL: Muscle strength and tone normal. SPINE: No scoliosis or deformity SKIN: No rashes CENTRAL NERVOUS SYSTEM: Alert and oriented -3. No focal deficits, tone is normal in all 4 extremities. PSYCHIATRIC: Alert and oriented -3. Appropriate affect. Intact judgment and insight. - Labs CBC & Chem 7: 10/02/21 08:35 10/03/21 07:46 Labs: Abnormal Lab Results - Last 24 Hours (Table) 10/03/21 Range/Units 07:46 Potassium 2.7 L* (3.5-5.1) mmol/L Glucose 115 H (74-99) mg/dL Calcium 8.0 L (8.4-10.2) mg/dL Assessment and Plan Plan: acute cardiac arrest, asystole, exact cause is not clear. The exact circumst ances for his cardiac arrest is not clear to me at this point. I believe this occurred preoperatively, it could have been a vagal response. Troponins are minimally elevated at this point in time the patient is free of any chest pain. No acute ST segment elevation or depression the patient continues to be in atrial flutter. Air Quality Chemist consult on the patient and review of her event monitor showed that the patient has had approximately atrial fibrillation and episodes of nonsustained ventricular tachycardia. Her previous Chest that showed a fixed defect in the inferior wall without any reversible ischemia. In view of the abnormal troponin and a nonsustained V. tach, cardiac catheterizat ion showed mild CAD, no acute abnormalities and no interventions have been done and the patient has not had any further cardiac events since this current admission. acute the right ankle bimalleolar fracture, the patient underwent closed reduction and placement of the splint COPD history of colon cancer chronic anxiety/depression hypertension chronic atrial flutter acute kidney injury, improving and the creatinine is down to normal non-anion gap metabolic acidosis, currently on a bicarb infusion for replacement , serum bicarb level improved degenerative arthritis hypertension diarrhea, negative stool for C. diff. the patient continues to have diarrhea the patient also developed some non-anion gap metabolic acidosis, bicarb level replaced Plan: No acute cardiac events overnight No complaints of chest discomfort Discontinue the bicarb infusion Check stool for lactoferrin and and cultures Consults Gastro Continue anticoagulation with Eliquis Continue Symbicort Continue to follow her clinical course We'll continue to follow
--- NOTE | 2021-10-03 13:41 | P.PN ---
Subjective Progress Note Date: 10/03/21 This is a pleasant 71-year-old female past medical history significant for hypertension, GERD, colon cancer, seizure disorder, [place], COPD. Patient was admitted to this hospital in February 2021 with right brain stem thalamic stroke. She quit smoking in 2016. She follows in the office with Dr. Key. Subsequently she had follow-up with Dr. Key and apparently had given monitor and stress test. She was diagnosed to have atrial fibrillation and was initiated on metoprolol succinate 25 mg along with anticoagulation therapy. Patient initially presented 09/27/21 to the hospital with dizziness and a fall resulting in fracture of the ankle. Patient was taken to the OR have surgery on to fix the ankle fracture. Patient was significant amount of swelling where closed reduction was done in the cast/splint was applied pending further/future surgical repair. However, patient apparently developed a cardiac arrhythmia and it appeared that patient had a long pause. She required CPR and was transferred to the ICU. Patients troponins were elevated 0.03, 0.04, 0.06. Echo revealed EF 5560%, mild aortic stenosis peak/mean gradient of 38/19 mmHg, moderate mitral regurgitation, mild tricuspid regurgitation She underwent cardiac catheterization Dr. Key on 10/01/2021 which revealed nonob structive coronary artery disease. 10/02/2021 Patient seen at bedside, no acute distress. Continues to have diarrhea. She states she is tired. No chest pain or shortness of breath. Telemetry reviewed, patient in atrial flutter with controlled ventricular rates, heart rate in the 50s. She has been maintained on Eliquis 5 mg twice a day, aspirin 80 mg daily, atorvastatin 40 mg nightly. Last, WBC 5.0, hemoglobin 10.9, platelets 309, sodium 139, potassium 3.4, BUN 15, serum creatinine 0.9 10/03/2021 Potassium today came back at 2.7 and patient is undergoing replacement with recheck this afternoon. She states that her discharge plan is go to medical [place] which would happen on Tuesday. desk monitor remains atrial flutter with controlled rate running in the 60s. Blood pressure 108/62. Pulse ox 90% on 4 L nasal cannula. GENERAL: Well-appearing, well-nourished and in no acute distress. NECK: Supple without JVD or thyromegaly. LUNGS: Breath sounds clear to auscultation bilaterally. Respiration equal and unlabored. No wheezes, rales or rhonchi. HEART: Irregular rate and rhythm without murmurs, rubs or gallops. S1 and S2 heard. EXTREMITIES: Normal range of motion, no edema. No clubbing or cyanosis. Peripheral pulses intact. ASSESSMENT Concern for possible arrythmia vs asytole in the OR on 09/27/21, requiring CPR for about 1 minute per documentation, unclear etiology. Typical atrial flutter Non-obstructive CAD Troponin mildly elevated not indicative of acute coronary syndrome, Echo with normal EF, and cath with non-obstructive CAD Paroxysmal atrial fibrillation History of hypertension History of CVA History of seizure disorder History of COPD Diarrhea, C diff negative PLAN From a cardiology perspective patient is stable. Replace potassium per protocol Monitor renal function and electrolytes Continue Eliquis and statin Follow up with Dr. Key outpatient. Nurse Practitioner note has been reviewed, I agree with a documented findings and plan of care. Patient was seen and examined. Objective - Vital Signs Vital signs: Vital Signs Temp 97.9 F 10/03/21 08:00 Pulse 62 10/03/21 08:00 Resp 18 10/03/21 08:00 BP 112/56 10/03/21 08:00 Pulse Ox 90 L 10/03/21 08:10 Intake & Output 10/02/21 10/03/21 10/03/21 18:59 06:59 18:59 Intake Total 200 120 Output Total 250 800 Balance -250 -600 120 Weight 82 kg Intake: Oral 200 120 Output: Urine 250 800 Uretheral (Renae) 250 Other: Voiding Method Indwelling Catheter # Bowel Movements 3 - Labs CBC & Chem 7: 10/02/21 08:35 10/03/21 07:46 Labs: Abnormal Lab Results - Last 24 Hours (Table) 10/03/21 Range/Units 07:46 Potassium 2.7 L* (3.5-5.1) mmol/L Glucose 115 H (74-99) mg/dL Calcium 8.0 L (8.4-10.2) mg/dL
--- NOTE | 2021-10-03 14:25 | P.PN ---
Progress Note - Text Progress Note Date: 10/03/21 History presenting complaint: 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 Chronic stable medical conditions include GERD, hypertension, colon cancer, seizure, sciatica, COPD. patient was here in the hospital in February 2021 with right brainstem thalamic stroke. Patient has been noticing last few days that she gets dizzy when she stands up. She's been having anywhere from 3-4 BMs a day. Last few days. Oral intake has been fair. Quite often times she will not have breakfast and lunch and just have her dinner. Patient has known atrial flutter fibrillation for which she is on eliquis. Did not take her medication this morning. Patient got a bit dizzy and lost her balance injuring her right ankle. In the ER x-ray studies confirmed right ankle fracture. No chest pain or palpitation. September 28: Patient was taken to the OR yesterday. Was in atrial flutter. In the perioperative period patient went into a asystole. Received about 1 minute of CPR. Came back. Surgery was postponed. Splint was placed. Patient brought to the ICU. Small troponin leak. Currently sitting up in bed. Eating lunch. Remains in atrial flutter. Being followed by cardiology September 29: ICU. Telemetry shows atrial flutter controlled. Per cardiology patient's previous event monitor showed atrial flutter and possible V. tach. Patient is put on IV heparin plan for cardiac catheterization on . September 6: ICU. IV heparin. Remains in atrial flutter. Pain control in the right leg. Plan for cardiac catheterization tomorrow. October 01: ICU. Patient underwent cardiac catheterization. No significant disease. Atrial flutter. No chest pain or shortness of breath. IV heparin. Patient not scheduled for surgery to few days later. We'll start eliquis October 02: Moved out of the ICU. Atrial flutter controlled. On eliquis. Acidotic. Started on bicarbonate drip by pulmonary. Eating fair. October 03: Remains in atrial flutter. Rate controlled. Bicarbonate drip discontinued. Low potassium being replaced. Oral intake fair. Active Medications Acetaminophen (Acetaminophen Tab 325 Mg Tab) 650 mg PO Q6HR PRN PRN Reason: Fever and/ or Pain Alprazolam (Alprazolam 0.5 Mg Tab) 0.5 mg PO BID PRN PRN Reason: Anxiety Last Admin: 10/02/21 00:00 Dose: 0.5 mg Documented by: Apixaban (Apixaban 5 Mg Tab) 5 mg PO BID [facility]; Protocol Last Admin: 10/03/21 08:54 Dose: 5 mg Documented by: Aspirin (Aspirin 81 Mg) 81 mg PO DAILY [facility] Last Admin: 10/03/21 08:54 Dose: 81 mg Documented by: Atorvastatin Calcium (Atorvastatin 40 Mg Tab) 40 mg PO HS [facility] Last Admin: 10/02/21 20:46 Dose: 40 mg Documented by: Budesonide/Formoterol Fumarate (Symbicort 160-4.5 Mcg Inhaler) 2 puff INHALATION RT-BID [facility] Last Admin: 10/03/21 08:02 Dose: 2 puff Documented by: Bupropion HCl (Bupropion Xl 300 Mg Tab.Er.24h) 300 mg PO DAILY [facility] Last Admin: 10/03/21 08:54 Dose: 300 mg Documented by: Diphenoxylate HCl/Atropine (Diphenox-Atrop 2.5-0.025 Mg 1 Each Tab) 2 each PO BID PRN PRN Reason: Diarrhea Last Admin: 10/03/21 08:54 Dose: 2 each Documented by: Gabapentin (Gabapentin 300 Mg Cap) 300 mg PO HS [facility] Last Admin: 10/02/21 20:46 Dose: 300 mg Documented by: Miscellaneous Information (Potassium Replacement Protocol 1 Each Misc) 1 each MISCELLANE DAILY PRN; Protocol PRN Reason: Per Protocol Oxybutynin Chloride (Oxybutynin 10 Mg Tab.Er.24) 10 mg PO DAILY [facility] Last Admin: 10/03/21 08:54 Dose: 10 mg Documented by: Paroxetine HCl (Paroxetine 20 Mg Tab) 40 mg PO DAILY [facility] Last Admin: 10/03/21 08:54 Dose: 40 mg Documented by: Past medical history to include: Colon cancer treated with chemotherapy and surgery in 2015, sciatica, essential hypertension, GERD, COPD. Acute right brainstem thalamic stroke in February 2021 Social history: . Smoked less than a pack a day for 45 years stopped in 2016. Alcohol occasionally. Family history: Bladder cancer Physical examination: VITAL SIGNS: 98.2, 60, 16, 108/62, 90% on 4 L GENERAL: Reclining in bed comfortable, EYES: Pupils equal. Conjunctiva normal. HEENT: External appearance of nose and ears normal, oral cavity grossly normal. NECK: JVD not raised; masses not palpable. HEART: Heart sounds irregular; no edema. LUNGS: Respiratory rate normal; decreased breath sounds. ABDOMEN: Soft, nontender, liver spleen not palpable, no masses palpable. PSYCH: Alert and oriented x3; mood and affect normal. MUSCULAR skeletal: Evidence of OA . Right ankle in the splint dressing INVESTIGATIONS, reviewed in the clinical context: October 03: Sodium 141 potassium 2.7 creatinine 0.87 bicarb October 02: 15 hemoglobin 10.9 potassium 3.4 creatinine 0.94 bicarb October 01: White count 6 hemoglobin 11.3 potassium 3.4 creatinine 1.0 September 30: Echo 6.9 hemoglobin 10.5 2-D echocardiogram: Severe concentric LVH. EF 55-60%. Possible LVOT obstruction. Moderate MR. September 29: White count 8.9 hemoglobin 12 potassium 4.3 at 0.95 September 28: White count 7.3 hemoglobin 11.6 potassium 3.4 BUN 18 creatinine 1.18 Troponin I 0.026, 0.035 0.064 C. diff: Negative White count 12.9 hemoglobin 13.8 platelets 286 potassium 4.1 BUN 24 creatinine 1.5 EKG tracing personally reviewed by me atrial flutter rate around 80 Chest x-ray film personally reviewed by me-some hyperinflation. Atelectasis. X-ray complete right: Unstable trimalleolar fracture subluxation right ankle Previous labs: February 2021 March 06: Creatinine 1.07 Assessment and plan: -Acute right ankle trimalleolar fracture secondary to fall Close reduction and long leg splint. Full surgery postponed. By Dr. John -IV heparin monitoring: Discontinued Follow PTT -COPD in a X smoker trelegy -Primary osteoarthritis Pain medications as needed -Hypertensive heart disease -Chronic urinary stress incontinence Detrol LA 4 mg daily -Troponin leak likely from hemodynamic mismatch from. / asystole Cardiac catheterization showed minimal CAD. -Anxiety not otherwise specified Xanax 0.5 mg twice a day when necessary, Paxil 40 mg daily -Essential hypertension Monitor blood pressure -Persistent atrial flutter fibrillation: Rate controlled eliquis. -Acute kidney injury from patient having diarrhea: Better. Admission creatinine 1.5 -Acute metabolic acidosis from diarrhea: Corrected Bicarbonate drip. -Severe hypokalemia Replace potassium DC bicarbonate drip. Replace potassium. Other medications to continue. Discharged to rehab Tuesday.
[2021-10-03] MEDS ORDERED: FUROSEMIDE 10 MG/ML 4 ML VIAL IV STA (17:40)
[2021-10-03] MEDS: ATORVASTATIN 40 MG TAB PO SCH (20:29)
[2021-10-03] MEDS: GABAPENTIN 300 MG CAP PO SCH (20:29)
[2021-10-04] MEDS: SYMBICORT 160-4.5 MCG INHALER INHALATION SCH ×2 (07:29→19:38)
[2021-10-04] MEDS: ASPIRIN 81 MG PO SCH (08:11)
[2021-10-04] MEDS: buPROPion XL 300 MG TAB.ER.24H PO SCH (08:11)
[2021-10-04] MEDS: PARoxetine 20 MG TAB PO SCH (08:11)
[2021-10-04] MEDS: OXYBUTYNIN 10 MG TAB.ER.24 PO SCH (08:11)
[2021-10-04] MEDS: APIXABAN 5 MG TAB PO SCH ×2 (08:11→20:53)
[2021-10-04 08:37] LABS: Calcium 8.3 mg/dL (8.4-10.2); Potassium 3.8 mmol/L (3.5-5.1)
[2021-10-04] MEDS ORDERED: FUROSEMIDE 10 MG/ML 2 ML VIAL IV ONE (10:00)
--- NOTE | 2021-10-04 10:26 | XR ---
EXAMINATION TYPE: XR chest 1V DATE OF EXAM: 10/04/2021 CLINICAL HISTORY: Difficulty breathing progress study. TECHNIQUE: Single AP portable upright view of the chest is obtained. COMPARISON: Chest x-ray from one week earlier. CT June 02, 2021. FINDINGS: Background chronic emphysematous and pulmonary fibrotic changes with right greater than l eft bibasilar opacities could reflect atelectasis and/or developing infiltrates. Rectangular radioden sity overlying superior heart likely overlying phone. Stable mild cardiomegaly. Osseous structures ar e demineralized. IMPRESSION: Mild cardiomegaly along with chronic emphysematous and pulmonary fibrotic changes with ba silar opacities consistent with atelectasis and/or infiltrate and likely tiny bilateral pleural effus ions or pleural thickening.
--- NOTE | 2021-10-04 10:33 | P.PN ---
Subjective Progress Note Date: 10/04/21 This is a pleasant 71-year-old female past medical history significant for hypertension, GERD, colon cancer, seizure disorder, [place], COPD. Patient was admitted to this hospital in February 2021 with right brain stem thalamic stroke. She quit smoking in 2016. She follows in the office with Dr. Key. Subsequently she had follow-up with Dr. Key and apparently had given monitor and stress test. She was diagnosed to have atrial fibrillation and was initiated on metoprolol succinate 25 mg along with anticoagulation therapy. Patient initially presented 09/27/21 to the hospital with dizziness and a fall resulting in fracture of the ankle. Patient was taken to the OR have surgery on to fix the ankle fracture. Patient was significant amount of swelling where closed reduction was done in the cast/splint was applied pending further/future surgical repair. However, patient apparently developed a cardiac arrhythmia and it appeared that patient had a long pause. She required CPR and was transferred to the ICU. Patients troponins were elevated 0.03, 0.04, 0.06. Echo revealed EF 5560%, mild aortic stenosis peak/mean gradient of 38/19 mmHg, moderate mitral regurgitation, mild tricuspid regurgitation She underwent cardiac catheterization Dr. Key on 10/01/2021 which revealed nonob structive coronary artery disease. 10/02/2021 Patient seen at bedside, no acute distress. Continues to have diarrhea. She states she is tired. No chest pain or shortness of breath. Telemetry reviewed, patient in atrial flutter with controlled ventricular rates, heart rate in the 50s. She has been maintained on Eliquis 5 mg twice a day, aspirin 80 mg daily, atorvastatin 40 mg nightly. Last, WBC 5.0, hemoglobin 10.9, platelets 309, sodium 139, potassium 3.4, BUN 15, serum creatinine 0.9 10/03/2021 Potassium today came back at 2.7 and patient is undergoing replacement with recheck this afternoon. She states that her discharge plan is go to [facility] which would happen on Tuesday. 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 Blood pressure 108/62. Pulse ox 90% on 4 L nasal cannula. 10/04/2021 Patient is complaining of shortness of breath with minimal exertion. She does not have home O2. Pulse ox is currently 90-92% on 6 L. Repeat potassium is 3.8 after replacement yesterday. BUN [address] Brown is ordered 1 dose of IV Lasix today and chest x-ray. No change in medications from cardiology. GENERAL: Well-appearing, well-nourished and in no acute distress. NECK: Supple without JVD or thyromegaly. LUNGS: Breath sounds clear to auscultation bilaterally. Respiration equal and unlabored. No wheezes, rales or rhonchi. HEART: Irregular rate and rhythm without murmurs, rubs or gallops. S1 and S2 heard. EXTREMITIES: Normal range of motion, no edema. No clubbing or cyanosis. Peripheral pulses intact. ASSESSMENT Concern for possible arrythmia vs asytole in the OR on 09/27/21, requiring CPR for about 1 minute per documentation, unclear etiology. Typical atrial flutter Non-obstructive CAD Troponin mildly elevated not indicative of acute coronary syndrome, Echo with normal EF, and cath with non-obstructive CAD Paroxysmal atrial fibrillation History of hypertension History of CVA History of seizure disorder History of COPD Diarrhea, C diff negative PLAN From a cardiology perspective patient is stable. Replace potassium per protocol Monitor renal function and electrolytes Continue Eliquis and statin Follow up with Dr. Key outpatient. Nurse Practitioner note has been reviewed, I agree with a documented findings and plan of care. Patient was seen and examined. Objective - Vital Signs Vital signs: Vital Signs Temp 98.2 F 10/04/21 04:00 Pulse 61 10/04/21 04:00 Resp 22 10/04/21 04:00 BP 152/74 10/04/21 04:00 Pulse Ox 90 L 10/04/21 07:31 Intake & Output 10/03/21 10/04/21 10/04/21 18:59 06:59 18:59 Intake Total 120 Output Total 598 600 Balance -478 -600 Intake: Oral 120 Output: Urine 600 Post Void Residual 98 Urine/Stool Mix 500 Other: # Voids 1 # Bowel Movements 1 - Labs CBC & Chem 7: 10/02/21 08:35 10/04/21 08:04 Labs: Abnormal Lab Results - Last 24 Hours (Table) 10/04/21 Range/Units 08:04 Glucose 138 H (74-99) mg/dL Calcium 8.3 L (8.4-10.2) mg/dL
[2021-10-04] MEDS: IPRATROPIUM-ALBUTEROL 3 ML NEB INHALATION SCH ×2 (11:35→19:37)
--- NOTE | 2021-10-04 12:19 | P.PN ---
Subjective Progress Note Date: 10/04/21 this is a 71-year-old female patient With known history of COPD and various other comorbidities including colon cancer, colectomy and previous current chemotherapy and the patient has been in remission. The patient was also hospitalized back in February 2021 for a right sided brainstem thalamic stroke. The patient was found to have atrial flutter and the patient admitted on long- term anticoagulation on outpatient basis. Note that the patient came into the hospital after she had a fall at home and she had a right sided bimalleolar ankle fracture. Based on that, the patient was taken to the operating room yesterday and the patient was found to have significant amount of swelling where closed reduction was done in the cast/splint was applied pending further/future surgical repair. Noted the patient was taken to the operating room. She was atrial flutter. I believe intraoperatively, the patient went into a period of asystole and the patient required CPR for a total of 1 minutes. I believe the patient was not given any epinephrine or atropine. The patient will receive CPR. Surgery was postponed and the splint was applied and the patient was sent to the intensive care unit. Noted the patient has had a recent cardiac evaluation including a recent cardiac stress of that was done [facility] and she was told that the results were within normal limits. In any rate, the patient is currently in the intensive care unit. She did not require any pressors. She is on 4 L of oxygen by nasal cannula. She had developed an acute kidney injury and the patient also has a component of non-anion gap metabolic acidosis which is being corrected. The patient is awake and alert following commands and answering questions appropriately. She is having some soreness in her chest related to the CPR. The cardiac rhythm is still atrial flutter. No ST segment elevation or depression. Troponins are 0.02, 0.03 and 0.04 respectively 3. Creatinine is at 1.1 after being as high as 1.5 from yesterday. Serum bicarb is at 22 from 14 from yesterday. The hemoglobin currently is at 11.6 with a white cell count of 7.3. 09/29/2021, the patient is doing well. The patient has no specific complaints. No further episodes of cardiac events on cardiac arrest. The patient remains atrial flutter and the patient is anticoagulated with Eliquis. The patient remains on oxygen and the patient is requiring 4 L of O2 by nasal cannula. She is known to have COPD yet she hasn't been oxygen dependent and the patient has been on no home oxygen. The patient has a maintenance fluid unit on outpatient basis. Right lower extremity remains in a splint and continues to be somewhat swollen compared to the left. Otherwise, the patient is doing well. No specific complaints. No chest pain. She did have a bout of diarrhea yesterday 2 and stool for C. diff has been negative. Her echocardiogram showed an ejection fraction of 55%, moderate MR, concentric LVH with questionable left ventricular outflow tract obstruction. There was also mild aortic stenosis. On today's evaluation, the white cycles at 8.2 with hemoglobin of 12 and the patient has a sodium level of 139 with a potassium level of 4.3 BUN of 13 and creatinine of 0.95. Event monitor showed a bout of nonsustained atrial tachycardia and paroxysmal nature fibrillation. The patient is going to undergo cardiac catheterization in a.m. by Dr. Cartwright. 09/30/2000 seen in follow-up. The patient has no specific complaints. She is fairly of any chest pain. No cardiac been noted. Event monitor the admission is shown paroxysmal atrial fibrillation and the patient has also had nonsustained V. tach. Based on that, the patient is going to undergo a cardiac catheterization and the exact timing is not known to be at this point in time. This will be decided by cardiology. She is doing well. She is on IV heparin. There is a concern for GI bleed as the patient's occult stool came back positive for blood. Lobe and was 11 yesterday and down to 10.5 on today's evaluation. She has also had an episode of bradycardia yesterday when she was sleeping. Based on that, I'm recommending to stop the beta blockers for now. No diarrhea. She remains on oxygen and she was weaned down to 2 L of oxygen by nasal desi filiberto. His underlying COPD pedis and spirometer was also provided. No other significant events otherwise for this patient over the past 24 hours. 10/01/2021, the patient is being seen for a follow-up. The patient is still awaiting a cardiac catheterization. The night was uneventful and the patient is not having any arrhythmias. She remains on IV heparin. No bleeding complications. No active issues with pain in the right lower extremity. She is awake and alert and she remains on 4 L of O2 by nasal cannula. No blood work from today shows a white cell count of 6 with a hemoglobin of 11.3, sodium is at 137 with a potassium level of 3.4 and a bicarbonate 27. On the 10/02/2021 patient seen in follow-up on [facility] care unit. She is resting in bed, does not appear to be in any acute distress, mildly short of breath, she states she continues to have frequent diarrhea. She was tested for C. diff and she was negative. She denies any worsening cough, no chest pain, she's been afebrile, on 4 L of oxygen pulse ox 94%. Today's labs have been reviewed, with Bentyl, Cipro 0.0, hemoglobin is 10.9, sodium is 139, potassium is 3.4, heart is 110, CO2 is 17, BUN is 15 creatinine 0.94. Patient underwent cardiac catheterization which showed mild nonobstructive CAD. She denies any chest pain or pressure. 10/03/2021, the patient's condition is stable. No new complaints since she cont inues to have diarrhea. She was on a bicarb infusion and the non-anion gap metabolic acidosis has been replenished and recovered and the patient's bicarb deficit has been replenished. Otherwise, the patient may need to be seen by Gastro regarding her ongoing diarrhea. Her cardiac status is stable for now. She remains on 4 L of O2 by nasal cannula. She is on long-term anticoagulation with Eliquis 5 mg by mouth twice a day. She is on aspirin. Cardiac catheterization was negative for any CAD. 10/05/19 22, patient for a follow-up the patient. The patient is calm and comfortable and overnight the patient had some increased oxygen requirements and the patient was brought up to 6 L of O2 by nasal cannula. I give her a dose of Lasix and she diuresed adequately. She'll be given another dose of Lasix this morning along with an incentive spirometer. No chest pain. No cardiac arrhyth mias. She remains hemodynamically stable and she is free of any chest pain. She is complaining of oral dryness. This is a ongoing chronic problem. Cardiology is on the case. She is on long-term and coagulation with Eliquis 5 mg by mouth twice a day. No altered mentation. No chest pain. Cardiac catheterization was negative for CAD. Objective - Vital Signs Vital signs: Vital Signs Temp 98 F 10/04/21 11:33 Pulse 64 10/04/21 11:50 Resp 20 10/04/21 11:33 BP 162/75 10/04/21 11:33 Pulse Ox 90 L 10/04/21 11:33 Intake & Output 10/03/21 10/04/21 10/04/21 18:59 06:59 18:59 Intake Total 120 Output Total 598 600 Balance -478 -600 Intake: Oral 120 Output: Urine 600 Post Void Residual 98 Urine/Stool Mix 500 Other: # Voids 1 # Bowel Movements 1 - Exam GENERAL EXAM: Alert, very pleasant, 71-year-old white female, on 6 L of oxygen pulse ox of 94%, mildly short of breath at rest, but appears to be no acute distress HEAD: Normocephalic/atraumatic. EYES: Normal reaction of pupils, equal size. Conjunctiva pink, sclera white. NOSE: Clear with pink turbinates. THROAT: No erythema or exudates. NECK: No masses, no JVD, no thyroid enlargement, no adenopathy. CHEST: No chest wall deformity. Symmetrical expansion. LUNGS: Equal air entry with no crackles, wheeze, rhonchi or dullness. CVS: Regular rate and rhythm, normal S1 and S2, no gallops, no murmurs, no rubs ABDOMEN: Soft, nontender. No hepatosplenomegaly, normal bowel sounds, no guarding or rigidity. EXTREMITIES: No clubbing, no edema, no cyanosis, 2+ pulses and upper and lower extremities. MUSCULOSKELETAL: Muscle strength and tone normal. SPINE: No scoliosis or deformity SKIN: No rashes CENTRAL NERVOUS SYSTEM: Alert and oriented -3. No focal deficits, tone is normal in all 4 extremities. PSYCHIATRIC: Alert and oriented -3. Appropriate affect. Intact judgment and insight. - Labs CBC & Chem 7: 10/02/21 08:35 10/04/21 08:04 Labs: Abnormal Lab Results - Last 24 Hours (Table) 10/04/21 Range/Units 08:04 Glucose 138 H (74-99) mg/dL Calcium 8.3 L (8.4-10.2) mg/dL Assessment and Plan Plan: acute cardiac arrest, asystole, exact cause is not clear. The exact circumstances for his cardiac arrest is not clear to me at this point. I believe this occurred preoperatively, it could have been a vagal response. Troponins are minimally elevated at this point in time the patient is free of any chest pain. No acute ST segment elevation or depression the patient continues to be in atrial flutter. 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 Her previous Chest that showed a fixed defect in the inferior wall without any reversible ischemia. In view of the abnormal troponin and a nonsustained V. tach, cardiac catheterization showed mild CAD, no acute abnormalities and no interventions have been done and the patient has not had any further cardiac events since this current admission. acute the right ankle bimalleolar fracture, the patient underwent closed reduction and placement of the splint COPD, currently on 6 L of O2 nasal cannula history of colon cancer chronic anxiety/depression hypertension chronic atrial flutter acute kidney injury, improving and the creatinine is down to normal non-anion gap metabolic acidosis, currently on a bicarb infusion for replacement , serum bicarb level improved degenerative arthritis hypertension diarrhea, negative stool for C. diff. the patient continues to have diarrhea the patient also developed some non-anion gap metabolic acidosis, bicarb level replaced Plan: Give the patient a dose of Lasix 20 mg IV push Provide the patient incentive spirometer Apply humidity oxygen source Started patient on DuoNeb 4 times a day No acute cardiac events overnight No complaints of chest discomfort Check stool for lactoferrin and and cultures pending Consults Gastro in a.m. Continue anticoagulation with Eliquis Continue Symbicort Continue to follow her clinical course We'll continue to follow
--- NOTE | 2021-10-04 15:21 | P.PN ---
Progress Note - Text Progress Note Date: 10/04/21 History presenting complaint: 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 Chronic stable medical conditions include GERD, hypertension, colon cancer, seizure, sciatica, COPD. patient was here in the hospital in February 2021 with right brainstem thalamic stroke. Patient has been noticing last few days that she gets dizzy when she stands up. She's been having anywhere from 3-4 BMs a day. Last few days. Oral intake has been fair. Quite often times she will not have breakfast and lunch and just have her dinner. Patient has known atrial flutter fibrillation for which she is on eliquis. Did not take her medication this morning. Patient got a bit dizzy and lost her balance injuring her right ankle. In the ER x-ray studies confirmed right ankle fracture. No chest pain or palpitation. September 28: Patient was taken to the OR yesterday. Was in atrial flutter. In the perioperative period patient went into a asystole. Received about 1 minute of CPR. Came back. Surgery was postponed. Splint was placed. Patient brought to the ICU. Small troponin leak. Currently sitting up in bed. Eating lunch. Remains in atrial flutter. Being followed by cardiology September 29: ICU. Telemetry shows atrial flutter controlled. Per cardiology patient's previous event monitor showed atrial flutter and possible V. tach. Patient is put on IV heparin plan for cardiac catheterization on . September 6: ICU. IV heparin. Remains in atrial flutter. Pain control in the right leg. Plan for cardiac catheterization tomorrow. October 01: ICU. Patient underwent cardiac catheterization. No significant disease. Atrial flutter. No chest pain or shortness of breath. IV heparin. Patient not scheduled for surgery to few days later. We'll start eliquis October 02: Moved out of the ICU. Atrial flutter controlled. On eliquis. Acidotic. Started on bicarbonate drip by pulmonary. Eating fair. October 03: Remains in atrial flutter. Rate controlled. Bicarbonate drip discontinued. Low potassium being replaced. Oral intake fair. October 04: Atrial flutter rate controlled. Potassium corrected. Pending to go to rehab. Patient was chronic dry mouth. Discussed. Active Medications Acetaminophen (Acetaminophen Tab 325 Mg Tab) 650 mg PO Q6HR PRN PRN Reason: Fever and/ or Pain Albuterol/Ipratropium (Ipratropium-Albuterol 3 Ml Neb) 3 ml INHALATION RT-TID [facility] Last Admin: 10/04/21 11:35 Dose: 3 ml Documented by: Alprazolam (Alprazolam 0.5 Mg Tab) 0.5 mg PO BID PRN PRN Reason: Anxiety Last Admin: 10/02/21 00:00 Dose: 0.5 mg Documented by: Apixaban (Apixaban 5 Mg Tab) 5 mg PO BID [facility]; Protocol Last Admin: 10/04/21 08:11 Dose: 5 mg Documented by: Aspirin (Aspirin 81 Mg) 81 mg PO DAILY [facility] Last Admin: 10/04/21 08:11 Dose: 81 mg Documented by: Atorvastatin Calcium (Atorvastatin 40 Mg Tab) 40 mg PO HS [facility] Last Admin: 10/03/21 20:29 Dose: 40 mg Documented by: Budesonide/Formoterol Fumarate (Symbicort 160-4.5 Mcg Inhaler) 2 puff INHALATION RT-BID [facility] Last Admin: 10/04/21 07:29 Dose: 2 puff Documented by: Bupropion HCl (Bupropion Xl 300 Mg Tab.Er.24h) 300 mg PO DAILY [facility] Last Admin: 10/04/21 08:11 Dose: 300 mg Documented by: Diphenoxylate HCl/Atropine (Diphenox-Atrop 2.5-0.025 Mg 1 Each Tab) 2 each PO BID PRN PRN Reason: Diarrhea Last Admin: 10/03/21 23:28 Dose: 2 each Documented by: Gabapentin (Gabapentin 300 Mg Cap) 300 mg PO [facility] Last Admin: 10/03/21 20:29 Dose: 300 mg Documented by: Miscellaneous Information (Potassium Replacement Protocol 1 Each Misc) 1 each MISCELLANE DAILY PRN; Protocol PRN Reason: Per Protocol Oxybutynin Chloride (Oxybutynin 10 Mg Tab.Er.24) 10 mg PO DAILY [facility] Last Admin: 10/04/21 08:11 Dose: 10 mg Documented by: Paroxetine HCl (Paroxetine 20 Mg Tab) 40 mg PO DAILY [facility] Last Admin: 10/04/21 08:11 Dose: 40 mg Documented by: Past medical history to include: Colon cancer treated with chemotherapy and surgery in 2016, sciatica, essential hypertension, GERD, COPD. Acute right brainstem thalamic stroke in February 2021 Social history: . Smoked less than a pack a day for 45 years stopped in 2017. Alcohol occasionally. Family history: Bladder cancer Physical examination: VITAL SIGNS: 98, 64, 20, 162/75, 90% on 6 L GENERAL: Reclining in bed comfortable, EYES: Pupils equal. Conjunctiva normal. HEENT: External appearance of nose and ears normal, oral cavity dry mucous membranes NECK: JVD not raised; masses not palpable. HEART: Heart sounds irregular; no edema. LUNGS: Respiratory rate normal; decreased breath sounds. ABDOMEN: Soft, nontender, liver spleen not palpable, no masses palpable. PSYCH: Alert and oriented x3; mood and affect normal. MUSCULAR skeletal: Evidence of OA . Right ankle in the splint dressing INVESTIGATIONS, reviewed in the clinical context: October 04: Potassium 3.8 creatinine 1.03 October 03: Sodium 141 potassium 2.7 creatinine 0.87 bicarb 23 October 8: 15 hemoglobin 10.9 potassium 3.4 creatinine 0.94 bicarb October 01: White count 6 hemoglobin 11.3 potassium 3.4 creatinine 1.0 September 30: Echo 6.9 hemoglobin 10.5 2-D echocardiogram: Severe concentric LVH. EF 55-60%. Possible LVOT obstruction. Moderate MR. September 29: White count 8.9 hemoglobin 12 potassium 4.3 at 0.95 September 28: White count 7.3 hemoglobin 11.6 potassium 3.4 BUN 18 creatinine 1.18 Troponin I 0.026, 0.035 0.064 C. diff: Negative White count 12.9 hemoglobin 13.8 platelets 286 potassium 4.1 BUN 24 creatinine 1.5 EKG tracing personally reviewed by me atrial flutter rate around 80 Chest x-ray film personally reviewed by me-some hyperinflation. Atelectasis. X-ray complete right: Unstable trimalleolar fracture subluxation right ankle Previous labs: February 2021 March 06: Creatinine 1.07 Assessment and plan: -Acute right ankle trimalleolar fracture secondary to fall Close reduction and long leg splint. Full surgery postponed. By Dr. John -IV heparin monitoring: Discontinued Follow PTT -COPD in a X smoker trelegy -Chronic xerostomia -Primary osteoarthritis Pain medications as needed -Hypertensive heart disease -Chronic urinary stress incontinence Detrol LA 4 mg daily -Troponin leak likely from hemodynamic mismatch from. / asystole Cardiac catheterization showed minimal CAD. -Anxiety not otherwise specified Xanax 0.5 mg twice a day when necessary, Paxil 40 mg daily -Essential hypertension Monitor blood pressure -Persistent atrial flutter fibrillation: Rate controlled eliquis. -Acute kidney injury from patient having diarrhea: Better. Admission creatinine 1.5 -Acute metabolic acidosis from diarrhea: Corrected Bicarbonate drip. -Severe hypokalemia: Corrected Discussed with patient. Continue current medication treatment plan. Repeat labs in the morning.
[2021-10-04] MEDS: ALPRAZolam 0.5 MG TAB PO PRN (17:48)
[2021-10-04 20:21] LABS: Glucose,Whole Blood 110 mg/dL (75-99)
[2021-10-04] MEDS: ATORVASTATIN 40 MG TAB PO SCH (20:53)
[2021-10-04] MEDS: GABAPENTIN 300 MG CAP PO SCH (20:53)
[2021-10-05 07:45] LABS: Calcium 8.4 mg/dL (8.4-10.2); Potassium 3.1 mmol/L (3.5-5.1)
[2021-10-05] MEDS: SYMBICORT 160-4.5 MCG INHALER INHALATION SCH ×2 (08:13→19:28)
[2021-10-05] MEDS: IPRATROPIUM-ALBUTEROL 3 ML NEB INHALATION SCH ×3 (08:13→19:28)
[2021-10-05] MEDS: ASPIRIN 81 MG PO SCH (08:44)
[2021-10-05] MEDS: PARoxetine 20 MG TAB PO SCH (08:44)
[2021-10-05] MEDS: buPROPion XL 300 MG TAB.ER.24H PO SCH (08:44)
[2021-10-05] MEDS: OXYBUTYNIN 10 MG TAB.ER.24 PO SCH (08:44)
[2021-10-05] MEDS: APIXABAN 5 MG TAB PO SCH ×2 (08:44→20:15)
[2021-10-05] MEDS ORDERED: POTASSIUM CHLORIDE ER 20 MEQ TAB.ER PO STA (10:15)
[2021-10-05] MEDS ORDERED: FUROSEMIDE 10 MG/ML 4 ML VIAL IV STA (10:16)
[2021-10-05 11:33] LABS: Glucose,Whole Blood 118 mg/dL (75-99)
--- NOTE | 2021-10-05 11:55 | P.PN ---
Progress Note - Text Progress Note Date: 10/05/21 History presenting complaint: 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 Chronic stable medical conditions include GERD, hypertension, colon cancer, seizure, sciatica, COPD. patient was here in the hospital in February 2021 with right brainstem thalamic stroke. Patient has been noticing last few days that she gets dizzy when she stands up. She's been having anywhere from 3-4 BMs a day. Last few days. Oral intake has been fair. Quite often times she will not have breakfast and lunch and just have her dinner. Patient has known atrial flutter fibrillation for which she is on eliquis. Did not take her medication this morning. Patient got a bit dizzy and lost her balance injuring her right ankle. In the ER x-ray studies confirmed right ankle fracture. No chest pain or palpitation. September 28: Patient was taken to the OR yesterday. Was in atrial flutter. In the perioperative period patient went into a asystole. Received about 1 minute of CPR. Came back. Surgery was postponed. Splint was placed. Patient brought to the ICU. Small troponin leak. Currently sitting up in bed. Eating lunch. Remains in atrial flutter. Being followed by cardiology September 29: ICU. Telemetry shows atrial flutter controlled. Per cardiology patient's previous event monitor showed atrial flutter and possible V. tach. Patient is put on IV heparin plan for cardiac catheterization on . September 6: ICU. IV heparin. Remains in atrial flutter. Pain control in the right leg. Plan for cardiac catheterization tomorrow. October 01: ICU. Patient underwent cardiac catheterization. No significant disease. Atrial flutter. No chest pain or shortness of breath. IV heparin. Patient not scheduled for surgery to few days later. We'll start eliquis October 02: Moved out of the ICU. Atrial flutter controlled. On eliquis. Acidotic. Started on bicarbonate drip by pulmonary. Eating fair. October 03: Remains in atrial flutter. Rate controlled. Bicarbonate drip discontinued. Low potassium being replaced. Oral intake fair. October 04: Atrial flutter rate controlled. Potassium corrected. Pending to go to rehab. Patient was chronic dry mouth. Discussed. October 05: Atrial flutter. Remains hypoxic on 5 L. Because of chronic dry mouth takes increasing by mouth fluids. Patient put on a restriction. 1 dose of IV Lasix 40 mg given. Discussed at length the patient. X-ray from yesterday did show pulmonary edema. Active Medications Acetaminophen (Acetaminophen Tab 325 Mg Tab) 650 mg PO Q6HR PRN PRN Reason: Fever and/ or Pain Albuterol/Ipratropium (Ipratropium-Albuterol 3 Ml Neb) 3 ml INHALATION RT-TID [facility] Last Admin: 10/05/21 08:13 Dose: 3 ml Documented by: Alprazolam (Alprazolam 0.5 Mg Tab) 0.5 mg PO BID PRN PRN Reason: Anxiety Last Admin: 10/04/21 17:48 Dose: 0.5 mg Documented by: Apixaban (Apixaban 5 Mg Tab) 5 mg PO BID [facility]; Protocol Last Admin: 10/05/21 08:44 Dose: 5 mg Documented by: Aspirin (Aspirin 81 Mg) 81 mg PO DAILY [facility] Last Admin: 10/05/21 08:44 Dose: 81 mg Documented by: Atorvastatin Calcium (Atorvastatin 40 Mg Tab) 40 mg PO HS [facility] Last Admin: 10/04/21 20:53 Dose: 40 mg Documented by: Budesonide/Formoterol Fumarate (Symbicort 160-4.5 Mcg Inhaler) 2 puff INHALATION RT-BID [facility] Last Admin: 10/05/21 08:13 Dose: 2 puff Documented by: Bupropion HCl (Bupropion Xl 300 Mg Tab.Er.24h) 300 mg PO DAILY [facility] Last Admin: 10/05/21 08:44 Dose: 300 mg Documented by: Diphenoxylate HCl/Atropine (Diphenox-Atrop 2.5-0.025 Mg 1 Each Tab) 2 each PO BID PRN PRN Reason: Diarrhea Last Admin: 10/03/21 23:28 Dose: 2 each Documented by: Gabapentin (Gabapentin 300 Mg Cap) 300 mg PO [facility] Last Admin: 10/04/21 20:53 Dose: 300 mg Documented by: Miscellaneous Information (Potassium Replacement Protocol 1 Each Misc) 1 each MISCELLANE DAILY PRN; Protocol PRN Reason: Per Protocol Oxybutynin Chloride (Oxybutynin 10 Mg Tab.Er.24) 10 mg PO DAILY [facility] Last Admin: 10/05/21 08:44 Dose: 10 mg Documented by: Paroxetine HCl (Paroxetine 20 Mg Tab) 40 mg PO DAILY [facility] Last Admin: 10/05/21 08:44 Dose: 40 mg Documented by: Past medical history to include: Colon cancer treated with chemotherapy and surgery in 2016, sciatica, essential hypertension, GERD, COPD. Acute right brainstem thalamic stroke in February 2021 Social history: . Smoked less than a pack a day for 45 years stopped in 2017. Alcohol occasionally. Family history: Bladder cancer Physical examination: VITAL SIGNS: 97.7, 62, 24, 147/69, 92% on 5 L GENERAL: Reclining in bed short of breath, EYES: Pupils equal. Conjunctiva normal. HEENT: External appearance of nose and ears normal, oral cavity dry mucous membranes NECK: JVD not raised; masses not palpable. HEART: Heart sounds irregular; no edema. LUNGS: Respiratory rate increased; some basal crackles ABDOMEN: Soft, nontender, liver spleen not palpable, no masses palpable. PSYCH: Alert and oriented x3; mood and affect anxious MUSCULAR skeletal: Evidence of OA . Right ankle in the splint dressing INVESTIGATIONS, reviewed in the clinical context: October 05: Potassium 3.1 creatinine 0.87 October 04: Potassium 3.8 creatinine 1.03 October 03: Sodium 141 potassium 2.7 creatinine 0.87 bicarb 23 October 8: 15 hemoglobin 10.9 potassium 3.4 creatinine 0.94 bicarb 11 October 7: White count 6 hemoglobin 11.3 potassium 3.4 creatinine 1.0 September 30: Echo 6.9 hemoglobin 10.5 2-D echocardiogram: Severe concentric LVH. EF 55-60%. Possible LVOT obstr uction. Moderate MR. September 29: White count 8.9 hemoglobin 12 potassium 4.3 at 0.95 September 28: White count 7.3 hemoglobin 11.6 potassium 3.4 BUN 18 creatinine 1.18 Troponin I 0.026, 0.035 0.064 C. diff: Negative White count 12.9 hemoglobin 13.8 platelets 286 potassium 4.1 BUN 24 creatinine 1.5 EKG tracing personally reviewed by me atrial flutter rate around 80 Chest x-ray film personally reviewed by me-some hyperinflation. Atelectasis. X-ray complete right: Unstable trimalleolar fracture subluxation right ankle Previous labs: February 2021 March 06: Creatinine 1.07 Assessment and plan: -Acute right ankle trimalleolar fracture secondary to fall Close reduction and long leg splint. Surgery down the line By Dr. John -IV heparin monitoring: Discontinued Follow PTT -COPD in a X smoker trelegy -Chronic xerostomia -Primary osteoarthritis Pain medications as needed -Hypertensive heart disease -Chronic urinary stress incontinence Detrol LA 4 mg daily -Troponin leak likely from hemodynamic mismatch from. / asystole Cardiac catheterization showed minimal CAD. -Anxiety not otherwise specified Xanax 0.5 mg twice a day when necessary, Paxil 40 mg daily -Essential hypertension Monitor blood pressure -Persistent atrial flutter fibrillation: Rate controlled eliquis. -Acute kidney injury from patient having diarrhea: Better. Admission creatinine 1.5 -Acute metabolic acidosis from diarrhea: Corrected Bicarbonate drip. -Severe hypokalemia: Corrected -Acute congestive heart failure from diastolic dysfunction EF 55-60%. IV Lasix 40 mg. -Acute hypoxic respiratory failure from pulmonary edema: Slow to respond Currently on 5 L nasal cannula IV Lasix 40 mg twice a day. Fluid restriction 1800 mL a day. Other medications to continue. Discussed at length with the patient. Check proBNP in the morning. Replace potassium.
--- NOTE | 2021-10-05 13:50 | XR ---
EXAMINATION TYPE: XR chest 1V portable DATE OF EXAM: 10/05/2021 COMPARISON: X-ray dated 10/04/2021 HISTORY: Shortness of breath TECHNIQUE: Single frontal view of the chest is obtained. FINDINGS: Persistent prominent interstitial lung markings, pulmonary vascular congestion and pleural effusions, progressed on the right side. This may suggest persistent acute pulmonary edema however associated i nfection cannot be excluded, please correlate clinically. Unchanged cardiomediastinal silhouette and bony thoracic cage. IMPRESSION: Mild interval changes as described above.
--- NOTE | 2021-10-05 15:14 | P.PN ---
Subjective Progress Note Date: 10/05/21 this is a 71-year-old female patient With known history of COPD and various other comorbidities including colon cancer, colectomy and previous current chemotherapy and the patient has been in remission. The patient was also hospitalized back in February 2021 for a right sided brainstem thalamic stroke. The patient was found to have atrial flutter and the patient admitted on long- term anticoagulation on outpatient basis. Note that the patient came into the hospital after she had a fall at home and she had a right sided bimalleolar ankle fracture. Based on that, the patient was taken to the operating room yesterday and the patient was found to have significant amount of swelling where closed reduction was done in the cast/splint was applied pending further/future surgical repair. Noted the patient was taken to the operating room. She was atrial flutter. I believe intraoperatively, the patient went into a period of asystole and the patient required CPR for a total of 1 minutes. I believe the patient was not given any epinephrine or atropine. The patient will receive CPR. Surgery was postponed and the splint was applied and the patient was sent to the intensive care unit. Noted the patient has had a recent cardiac evaluation including a recent cardiac stress of that was done [facility] and she was told that the results were within normal limits. In any rate, the patient is currently in the intensive care unit. She did not require any pressors. She is on 4 L of oxygen by nasal cannula. She had developed an acute kidney injury and the patient also has a component of non-anion gap metabolic acidosis which is being corrected. The patient is awake and alert following commands and answering questions appropriately. She is having some soreness in her chest related to the CPR. The cardiac rhythm is still atrial flutter. No ST segment elevation or depression. Troponins are 0.02, 0.03 and 0.04 respectively 3. Creatinine is at 1.1 after being as high as 1.5 from yesterday. Serum bicarb is at 22 from 14 from yesterday. The hemoglobin currently is at 11.6 with a white cell count of 7.3. 09/29/2021, the patient is doing well. The patient has no specific complaints. No further episodes of cardiac events on cardiac arrest. The patient remains atrial flutter and the patient is anticoagulated with Eliquis. The patient remains on oxygen and the patient is requiring 4 L of O2 by nasal cannula. She is known to have COPD yet she hasn't been oxygen dependent and the patient has been on no home oxygen. The patient has a maintenance fluid unit on outpatient basis. Right lower extremity remains in a splint and continues to be somewhat swollen compared to the left. Otherwise, the patient is doing well. No specific complaints. No chest pain. She did have a bout of diarrhea yesterday 2 and stool for C. diff has been negative. Her echocardiogram showed an ejection fraction of 55%, moderate MR, concentric LVH with questionable left ventricular outflow tract obstruction. There was also mild aortic stenosis. On today's evaluation, the white cycles at 8.2 with hemoglobin of 12 and the patient has a sodium level of 139 with a potassium level of 4.3 BUN of 13 and creatinine of 0.95. Event monitor showed a bout of nonsustained atrial tachycardia and paroxysmal nature fibrillation. The patient is going to undergo cardiac catheterization in a.m. by Dr. Cartwright. 09/30/2000 seen in follow-up. The patient has no specific complaints. She is fairly of any chest pain. No cardiac been noted. Event monitor the admission is shown paroxysmal atrial fibrillation and the patient has also had nonsustained V. tach. Based on that, the patient is going to undergo a cardiac catheterization and the exact timing is not known to be at this point in time. This will be decided by cardiology. She is doing well. She is on IV heparin. There is a concern for GI bleed as the patient's occult stool came back positive for blood. Lobe and was 11 yesterday and down to 10.5 on today's evaluation. She has also had an episode of bradycardia yesterday when she was sleeping. Based on that, I'm recommending to stop the beta blockers for now. No diarrhea. She remains on oxygen and she was weaned down to 2 L of oxygen by nasal desi filiberto. His underlying COPD pedis and spirometer was also provided. No other significant events otherwise for this patient over the past 24 hours. 10/01/2021, the patient is being seen for a follow-up. The patient is still awaiting a cardiac catheterization. The night was uneventful and the patient is not having any arrhythmias. She remains on IV heparin. No bleeding complications. No active issues with pain in the right lower extremity. She is awake and alert and she remains on 4 L of O2 by nasal cannula. No blood work from today shows a white cell count of 6 with a hemoglobin of 11.3, sodium is at 137 with a potassium level of 3.4 and a bicarbonate 27. On the 10/02/2021 patient seen in follow-up on selective care unit. She is resting in bed, does not appear to be in any acute distress, mildly short of breath, she states she continues to have frequent diarrhea. She was tested for C. diff and she was negative. She denies any worsening cough, no chest pain, she's been afebrile, on 4 L of oxygen pulse ox 94%. Today's labs have been reviewed, with Bentyl, Cipro 0.0, hemoglobin is 10.9, sodium is 139, potassium is 3.4, heart is 110, CO2 is 17, BUN is 15 creatinine 0.94. Patient underwent cardiac catheterization which showed mild nonobstructive CAD. She denies any chest pain or pressure. On 10/05/2021 patient seen in follow-up on selective care unit. She is resting in bed, does not appear to be in any acute distress, lung sounds are clear to auscultation, she remains on Lasix 40 mg every 12 hours. She remains on Symbicort and DuoNeb. Chest x-ray today shows persistent prominent interstitial lung markings pulmonary vessel congestion and pleural effusions. The patient denies any worsening dyspnea, no chest discomfort. Today's labs have been reviewed, sodium is 141, potassium is 3.1, breast reduction with renal profile were within normal limits. And continues on oral anticoagulation for atrial fibrillation. Heart rate is controlled. No altered mentation, patient responds appropriately. Objective - Vital Signs Vital signs: Vital Signs Temp 97.7 F 10/05/21 08:36 Pulse 62 10/05/21 12:09 Resp 18 10/05/21 14:44 BP 125/62 10/05/21 12:09 Pulse Ox 93 L 10/05/21 12:09 Intake & Output 10/04/21 10/05/21 10/05/21 18:59 06:59 18:59 Intake Total 238 900 240 Output Total 2 Balance 238 898 240 Intake: Oral 238 900 240 Output: Stool 2 Other: Voiding Method Indwelling Catheter Indwelling Catheter # Voids 2 1 # Bowel Movements 1 - Exam GENERAL EXAM: Alert, very pleasant, 71-year-old white female, on 5 L of oxygen pulse ox of 94%, mildly short of breath at rest, but appears to be no acute distress HEAD: Normocephalic/atraumatic. EYES: Normal reaction of pupils, equal size. Conjunctiva pink, sclera white. NOSE: Clear with pink turbinates. THROAT: No erythema or exudates. NECK: No masses, no JVD, no thyroid enlargement, no adenopathy. CHEST: No chest wall deformity. Symmetrical expansion. LUNGS: Equal air entry with no crackles, wheeze, rhonchi or dullness. CVS: Regular rate and rhythm, normal S1 and S2, no gallops, no murmurs, no rubs ABDOMEN: Soft, nontender. No hepatosplenomegaly, normal bowel sounds, no guarding or rigidity. EXTREMITIES: No clubbing, no edema, no cyanosis, 2+ pulses and upper and lower extremities. MUSCULOSKELETAL: Muscle strength and tone normal. SPINE: No scoliosis or deformity SKIN: No rashes CENTRAL NERVOUS SYSTEM: Alert and oriented -3. No focal deficits, tone is normal in all 4 extremities. PSYCHIATRIC: Alert and oriented -3. Appropriate affect. Intact judgment and insight. - Labs CBC & Chem 7: 10/02/21 08:35 10/05/21 06:30 Labs: Abnormal Lab Results - Last 24 Hours (Table) 10/04/21 10/05/21 10/05/21 Range/Units 20:10 06:30 11:31 Potassium 3.1 L (3.5-5.1) mmol/L POC Glucose (mg/dL) 110 H 118 H (75-99) mg/dL Assessment and Plan Plan: acute cardiac arrest, asystole, exact cause is not clear. The exact circumstances for his cardiac arrest is not clear to me at this point. I be lieve this occurred preoperatively, it could have been a vagal response. Troponins are minimally elevated at this point in time the patient is free of any chest pain. No acute ST segment elevation or depression the patient continues to be in atrial flutter. 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 Her previous Chest that showed a fixed defect in the inferior wall without any reversible ischemia. In view of the abnormal troponin and a nonsustained V. tach, cardiac catheterization showed mild CAD acute the right ankle bimalleolar fracture, the patient underwent closed reduction and placement of the splint COPD history of colon cancer chronic anxiety/depression hypertension chronic atrial flutter acute kidney injury, improving and the creatinine is down to normal non-anion gap metabolic acidosis, currently on a bicarb infusion for replacement of the bicarb deficit and this could have been related to the diarrhea degenerative arthritis hypertension diarrhea, negative stool for C. diff. Plan: Today's chest x-ray has been reviewed showing interstitial edema and pulmonary vessel congestion Clinically patient is breathing comfortably, She continues on diuretics Monitor electrolytes and renal profile We will continue to follow I have personally seen and examined the patient, performed the documentation and the assessment and plan as written. Number of minutes spent on the visit: 10 Time with Patient: Less than 30
[2021-10-05 20:12] LABS: Glucose,Whole Blood 106 mg/dL (75-99)
[2021-10-05] MEDS: FUROSEMIDE 10 MG/ML 4 ML VIAL IV SCH (20:15)
[2021-10-05] MEDS: ATORVASTATIN 40 MG TAB PO SCH (20:15)
[2021-10-05] MEDS: GABAPENTIN 300 MG CAP PO SCH (20:15)
[2021-10-06 06:09] LABS: Glucose,Whole Blood 110 mg/dL (75-99)
[2021-10-06 08:28] LABS: Calcium 8.4 mg/dL (8.4-10.2); Potassium 3.3 mmol/L (3.5-5.1)
--- NOTE | 2021-10-06 09:19 | P.PN ---
Subjective Progress Note Date: 10/06/21 this is a 71-year-old female patient With known history of COPD and various other comorbidities including colon cancer, colectomy and previous current chemotherapy and the patient has been in remission. The patient was also hospitalized back in February 2021 for a right sided brainstem thalamic stroke. The patient was found to have atrial flutter and the patient admitted on long- term anticoagulation on outpatient basis. Note that the patient came into the hospital after she had a fall at home and she had a right sided bimalleolar ankle fracture. Based on that, the patient was taken to the operating room yesterday and the patient was found to have significant amount of swelling where closed reduction was done in the cast/splint was applied pending further/future surgical repair. Noted the patient was taken to the operating room. She was atrial flutter. I believe intraoperatively, the patient went into a period of asystole and the patient required CPR for a total of 1 minutes. I believe the patient was not given any epinephrine or atropine. The patient will receive CPR. Surgery was postponed and the splint was applied and the patient was sent to the intensive care unit. Noted the patient has had a recent cardiac evaluation including a recent cardiac stress of that was done [facility] and she was told that the results were within normal limits. In any rate, the patient is currently in the intensive care unit. She did not require any pressors. She is on 4 L of oxygen by nasal cannula. She had developed an acute kidney injury and the patient also has a component of non-anion gap metabolic acidosis which is being corrected. The patient is awake and alert following commands and answering questions appropriately. She is having some soreness in her chest related to the CPR. The cardiac rhythm is still atrial flutter. No ST segment elevation or depression. Troponins are 0.02, 0.03 and 0.04 respectively 3. Creatinine is at 1.1 after being as high as 1.5 from yesterday. Serum bicarb is at 22 from 14 from yesterday. The hemoglobin currently is at 11.6 with a white cell count of 7.3. 09/29/2021, the patient is doing well. The patient has no specific complaints. No further episodes of cardiac events on cardiac arrest. The patient remains atrial flutter and the patient is anticoagulated with Eliquis. The patient remains on oxygen and the patient is requiring 4 L of O2 by nasal cannula. She is known to have COPD yet she hasn't been oxygen dependent and the patient has been on no home oxygen. The patient has a maintenance fluid unit on outpatient basis. Right lower extremity remains in a splint and continues to be somewhat swollen compared to the left. Otherwise, the patient is doing well. No specific complaints. No chest pain. She did have a bout of diarrhea yesterday 2 and stool for C. diff has been negative. Her echocardiogram showed an ejection fraction of 55%, moderate MR, concentric LVH with questionable left ventricular outflow tract obstruction. There was also mild aortic stenosis. On today's evaluation, the white cycles at 8.2 with hemoglobin of 12 and the patient has a sodium level of 139 with a potassium level of 4.3 BUN of 13 and creatinine of 0.95. Event monitor showed a bout of nonsustained atrial tachycardia and paroxysmal nature fibrillation. The patient is going to undergo cardiac catheterization in a.m. by Dr. Cartwright. 09/30/2000 seen in follow-up. The patient has no specific complaints. She is fairly of any chest pain. No cardiac been noted. Event monitor the admission is shown paroxysmal atrial fibrillation and the patient has also had nonsustained V. tach. Based on that, the patient is going to undergo a cardiac catheterization and the exact timing is not known to be at this point in time. This will be decided by cardiology. She is doing well. She is on IV heparin. There is a concern for GI bleed as the patient's occult stool came back positive for blood. Lobe and was 11 yesterday and down to 10.5 on today's evaluation. She has also had an episode of bradycardia yesterday when she was sleeping. Based on that, I'm recommending to stop the beta blockers for now. No diarrhea. She remains on oxygen and she was weaned down to 2 L of oxygen by nasal desi filiberto. His underlying COPD pedis and spirometer was also provided. No other significant events otherwise for this patient over the past 24 hours. 10/01/2021, the patient is being seen for a follow-up. The patient is still awaiting a cardiac catheterization. The night was uneventful and the patient is not having any arrhythmias. She remains on IV heparin. No bleeding complications. No active issues with pain in the right lower extremity. She is awake and alert and she remains on 4 L of O2 by nasal cannula. No blood work from today shows a white cell count of 6 with a hemoglobin of 11.3, sodium is at 137 with a potassium level of 3.4 and a bicarbonate 27. On the 10/02/2021 patient seen in follow-up on selective care unit. She is resting in bed, does not appear to be in any acute distress, mildly short of breath, she states she continues to have frequent diarrhea. She was tested for C. diff and she was negative. She denies any worsening cough, no chest pain, she's been afebrile, on 4 L of oxygen pulse ox 94%. Today's labs have been reviewed, with Bentyl, Cipro 0.0, hemoglobin is 10.9, sodium is 139, potassium is 3.4, heart is 110, CO2 is 17, BUN is 15 creatinine 0.94. Patient underwent cardiac catheterization which showed mild nonobstructive CAD. She denies any chest pain or pressure. On 10/05/2021 patient seen in follow-up on selective care unit. She is resting in bed, does not appear to be in any acute distress, lung sounds are clear to auscultation, she remains on Lasix 40 mg every 12 hours. She remains on Symbicort and DuoNeb. Chest x-ray today shows persistent prominent interstitial lung markings pulmonary vessel congestion and pleural effusions. The patient denies any worsening dyspnea, no chest discomfort. Today's labs have been reviewed, sodium is 141, potassium is 3.1, breast reduction with renal profile were within normal limits. And continues on oral anticoagulation for atrial fibrillation. Heart rate is controlled. No altered mentation, patient responds appropriately. On 10/06/2021 patient seen in follow-up on selective care unit, she is resting in bed, she is currently on 5 L of oxygen pulse ox is 95%, and is breathing comfortably, lung sounds are diminished, but no crackles or wheezes were auscultated, his been afebrile, vital signs are stable, she is currently in a flutter with a rate of 53 BPM. She's had no acute events overnight, last chest x-ray showed interstitial edema, patient continues on IV diuretics Lasix 40 mg every 12 hours, she is in -792 mL net fluid balance over the last 24 hours. She is working on incentive spirometer although she needs a reminder and encouragement to use it, she is able to achieve 2000 mL on the today. No lower extremity edema was appreciated. Right lower leg is in the immobilizer. She has a heart monitor attached to the anterior chest wall to the right of the sternum. States that time she has chest wall soreness with movement and deep breathing. But no worsening shortness of breath. Today's labs have been reviewed, serum sodium is 141, potassium is 3.3, chloride is 103, CO2 is 29, BUN is 17, creatinine 0.98, proBNP was 4020 on today's labs. Physical therapy has been consulted and patient states she was able to sit up on the edge of the bed, but she has not ambulated all been up out of bed yet. Objective - Vital Signs Vital signs: Vital Signs Temp 98.0 F 10/06/21 07:57 Pulse 51 L 10/06/21 07:57 Resp 19 10/06/21 07:57 BP 163/71 10/06/21 07:57 Pulse Ox 95 10/06/21 07:57 Intake & Output 10/05/21 10/06/21 10/06/21 18:59 06:59 18:59 Intake Total 360 Output Total 600 552 Balance -240 -552 Intake: Oral 360 Output: Urine 600 550 Stool 2 Other: Voiding Method Indwelling Catheter External Catheter # Voids 1 # Bowel Movements 1 - Exam GENERAL EXAM: Alert, very pleasant, 71-year-old white female, on 5 L of oxygen pulse ox of 95%, mildly short of breath at rest, but appears to be no acute distress HEAD: Normocephalic/atraumatic. EYES: Normal reaction of pupils, equal size. Conjunctiva pink, sclera white. NOSE: Clear with pink turbinates. THROAT: No erythema or exudates. NECK: No masses, no JVD, no thyroid enlargement, no adenopathy. CHEST: No chest wall deformity. Symmetrical expansion. LUNGS: Equal air entry with no crackles, wheeze, rhonchi or dullness. CVS: Regular rate and rhythm, normal S1 and S2, no gallops, no murmurs, no rubs ABDOMEN: Soft, nontender. No hepatosplenomegaly, normal bowel sounds, no guarding or rigidity. EXTREMITIES: No clubbing, no edema, no cyanosis, 2+ pulses and upper and lower extremities. MUSCULOSKELETAL: Muscle strength and tone normal. SPINE: No scoliosis or deformity SKIN: No rashes CENTRAL NERVOUS SYSTEM: Alert and oriented -3. No focal deficits, tone is normal in all 4 extremities. PSYCHIATRIC: Alert and oriented -3. Appropriate affect. Intact judgment and insight. - Labs CBC & Chem 7: 10/02/21 08:35 10/06/21 07:47 Labs: Abnormal Lab Results - Last 24 Hours (Table) 10/05/21 10/05/21 10/06/21 Range/Units 11:31 20:05 06:08 Potassium (3.5-5.1) mmol/L Glucose (74-99) mg/dL POC Glucose (mg/dL) 118 H 106 H 110 H (75-99) mg/dL 10/06/21 Range/Units 07:47 Potassium 3.3 L (3.5-5.1) mmol/L Glucose 108 H (74-99) mg/dL POC Glucose (mg/dL) (75-99) mg/dL Assessment and Plan Plan: #1. Acute cardiac arrest, asystole, exact cause is not clear. The exact circumstances for his cardiac arrest is not clear to me at this point. I believe this occurred preoperatively, it could have been a vagal response. Troponins are minimally elevated at this point in time the patient is free of any chest pain. No acute ST segment elevation or depression the patient continues to be in atrial flutter. Professor Of Kinesiology consult on the patient and review of her event monitor showed that the patient has had approximately atrial fibrillation and episodes of nonsustained ventricular tachycardia. Her previous Chest that showed a fixed defect in the inferior wall without any reversible ischemia. In view of the abnormal troponin and a nonsustained V. tach, cardiac catheterization showed mild CAD #2. Acute the right ankle bimalleolar fracture, the patient underwent closed reduction and placement of the splint #3. COPD #4. History of colon cancer #5. Chronic anxiety/depression #6. Hypertension #7. Chronic atrial flutter #8. Acute kidney injury, improving and the creatinine is down to normal #9. Non-anion gap metabolic acidosis, currently on a bicarb infusion for replacement of the bicarb deficit and this could have been related to the diarrhea #10. Degenerative arthritis #11. Hypertension #11. Diarrhea, negative stool for C. diff, improved Plan: Continue diuretics Correct serum potassium per protocol Continue weaning Fio2, Reconsult physical therapy to mobilize patient with recommendations for right foot weight bearing follow up CXR today We will continue to follow I have personally seen and examined the patient, performed the documentation and the assessment and plan as written. Number of minutes spent on the visit: 10 Time with Patient: Less than 30
[2021-10-06] MEDS: IPRATROPIUM-ALBUTEROL 3 ML NEB INHALATION SCH ×3 (09:37→19:19)
[2021-10-06] MEDS: SYMBICORT 160-4.5 MCG INHALER INHALATION SCH ×2 (09:37→19:19)
[2021-10-06] MEDS: APIXABAN 5 MG TAB PO SCH ×2 (10:40→20:21)
[2021-10-06] MEDS: ASPIRIN 81 MG PO SCH (10:40)
[2021-10-06] MEDS: buPROPion XL 300 MG TAB.ER.24H PO SCH (10:41)
[2021-10-06] MEDS: OXYBUTYNIN 10 MG TAB.ER.24 PO SCH (10:42)
[2021-10-06] MEDS: PARoxetine 20 MG TAB PO SCH (10:42)
[2021-10-06 11:57] LABS: Glucose,Whole Blood 104 mg/dL (75-99)
[2021-10-06] MEDS: FUROSEMIDE 10 MG/ML 4 ML VIAL IV SCH ×3 (12:10→20:21)
[2021-10-06] MEDS ORDERED: Potassium Replacement Protocol 1 EACH MISC MISCELLANE PRN (12:10)
--- NOTE | 2021-10-06 13:22 | P.PN ---
Progress Note - Text Progress Note Date: 10/06/21 History presenting complaint: 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 Chronic stable medical conditions include GERD, hypertension, colon cancer, seizure, sciatica, COPD. patient was here in the hospital in February 2021 with right brainstem thalamic stroke. Patient has been noticing last few days that she gets dizzy when she stands up. She's been having anywhere from 3-4 BMs a day. Last few days. Oral intake has been fair. Quite often times she will not have breakfast and lunch and just have her dinner. Patient has known atrial flutter fibrillation for which she is on eliquis. Did not take her medication this morning. Patient got a bit dizzy and lost her balance injuring her right ankle. In the ER x-ray studies confirmed right ankle fracture. No chest pain or palpitation. September 28: Patient was taken to the OR yesterday. Was in atrial flutter. In the perioperative period patient went into a asystole. Received about 1 minute of CPR. Came back. Surgery was postponed. Splint was placed. Patient brought to the ICU. Small troponin leak. Currently sitting up in bed. Eating lunch. Remains in atrial flutter. Being followed by cardiology September 29: ICU. Telemetry shows atrial flutter controlled. Per cardiology patient's previous event monitor showed atrial flutter and possible V. tach. Patient is put on IV heparin plan for cardiac catheterization on . September 6: ICU. IV heparin. Remains in atrial flutter. Pain control in the right leg. Plan for cardiac catheterization tomorrow. October 01: ICU. Patient underwent cardiac catheterization. No significant disease. Atrial flutter. No chest pain or shortness of breath. IV heparin. Patient not scheduled for surgery to few days later. We'll start eliquis October 02: Moved out of the ICU. Atrial flutter controlled. On eliquis. Acidotic. Started on bicarbonate drip by pulmonary. Eating fair. October 03: Remains in atrial flutter. Rate controlled. Bicarbonate drip discontinued. Low potassium being replaced. Oral intake fair. October 04: Atrial flutter rate controlled. Potassium corrected. Pending to go to rehab. Patient was chronic dry mouth. Discussed. October 05: Atrial flutter. Remains hypoxic on 5 L. Because of chronic dry mouth takes increasing by mouth fluids. Patient put on a restriction. 1 dose of IV Lasix 40 mg given. Discussed at length the patient. X-ray from yesterday did show pulmonary edema. October 06: On IV Lasix 40 mg every 12. On 3 L nasal cannula. Increase IV Lasix to 40 mg every 8 for today. Repeat check stat x-ray BNP tomorrow and labs tomorrow. 4 chronic dry mouth start Salagen 5 mg 3 times a day. There was discussed at length with the patient. Active Medications Acetaminophen (Acetaminophen Tab 325 Mg Tab) 650 mg PO Q6HR PRN PRN Reason: Fever and/ or Pain Albuterol/Ipratropium (Ipratropium-Albuterol 3 Ml Neb) 3 ml INHALATION RT-TID [facility] Last Admin: 10/06/21 12:30 Dose: 3 ml Documented by: Alprazolam (Alprazolam 0.5 Mg Tab) 0.5 mg PO BID PRN PRN Reason: Anxiety Last Admin: 10/04/21 17:48 Dose: 0.5 mg Documented by: Apixaban (Apixaban 5 Mg Tab) 5 mg PO BID [facility]; Protocol Last Admin: 10/06/21 10:40 Dose: 5 mg Documented by: Aspirin (Aspirin 81 Mg) 81 mg PO DAILY [facility] Last Admin: 10/06/21 10:40 Dose: 81 mg Documented by: Atorvastatin Calcium (Atorvastatin 40 Mg Tab) 40 mg PO HS [facility] Last Admin: 10/05/21 20:15 Dose: 40 mg Documented by: Budesonide/Formoterol Fumarate (Symbicort 160-4.5 Mcg Inhaler) 2 puff INHALATION RT-BID [facility] Last Admin: 10/06/21 09:37 Dose: Not Given Documented by: Bupropion HCl (Bupropion Xl 300 Mg Tab.Er.24h) 300 mg PO DAILY [facility] Last Admin: 10/06/21 10:41 Dose: 300 mg Documented by: Diphenoxylate HCl/Atropine (Diphenox-Atrop 2.5-0.025 Mg 1 Each Tab) 2 each PO BID PRN PRN Reason: Diarrhea Last Admin: 10/03/21 23:28 Dose: 2 each Documented by: Furosemide (Furosemide 10 Mg/Ml 4 Ml Vial) 40 mg IV Q8H [facility] Last Admin: 10/06/21 12:31 Dose: 40 mg Documented by: Gabapentin (Gabapentin 300 Mg Cap) 300 mg PO HS [facility] Last Admin: 10/05/21 20:15 Dose: 300 mg Documented by: Miscellaneous Information (Potassium Replacement Protocol 1 Each Misc) 1 each MISCELLANE DAILY PRN; Protocol PRN Reason: Per Protocol Miscellaneous Information (Potassium Replacement Protocol 1 Each Misc) 1 each MISCELLANE DAILY PRN; Protocol PRN Reason: Per Protocol Oxybutynin Chloride (Oxybutynin 10 Mg Tab.Er.24) 10 mg PO DAILY [facility] Last Admin: 10/06/21 10:42 Dose: 10 mg Documented by: Paroxetine HCl (Paroxetine 20 Mg Tab) 40 mg PO DAILY [facility] Last Admin: 10/06/21 10:42 Dose: 40 mg Documented by: Pilocarpine HCl (Pilocarpine 5 Mg Tab) 5 mg PO TID [facility] Potassium Chloride (Potassium Chloride Er 20 Meq Tab.Er) 20 meq PO Q1HR [facility]; Protocol Stop: 10/06/21 14:01 Past medical history to include: Colon cancer treated with chemotherapy and surgery in 2015, sciatica, essential hypertension, GERD, COPD. Acute right brainstem thalamic stroke in February 2021 Social history: . Smoked less than a pack a day for 45 years stopped in 2016. Alcohol occasionally. Family history: Bladder cancer Physical examination: VITAL SIGNS: 98, 75, 18, 120 minutes a 75, 94% on 3 L GENERAL: Reclining in bed , breathing a bit better EYES: Pupils equal. Conjunctiva normal. HEENT: External appearance of nose and ears normal, oral cavity dry mucous membranes NECK: JVD not raised; masses not palpable. HEART: Heart sounds irregular; no edema. LUNGS: Respiratory rate increased; some basal crackles ABDOMEN: Soft, nontender, liver spleen not palpable, no masses palpable. PSYCH: Alert and oriented x3; mood and affect anxious MUSCULAR skeletal: Evidence of OA . Right ankle in the splint dressing INVESTIGATIONS, reviewed in the clinical context: October 06: Potassium 3.3 creatinine 0.98 proBNP 4020 October 05: Potassium 3.1 creatinine 0.87 September 10: Potassium 3.8 creatinine 1.03 September 9: Sodium 141 potassium 2.7 creatinine 0.87 bicarb 23 October 8: 15 hemoglobin 10.9 potassium 3.4 creatinine 0.94 bicarb 11 October 7: White count 6 hemoglobin 11.3 potassium 3.4 creatinine 1.0 September 30: Echo 6.9 hemoglobin 10.5 2-D echocardiogram: Severe concentric LVH. EF 55-60%. Possible LVOT obstruction. Moderate MR. September 29: White count 8.9 hemoglobin 12 potassium 4.3 at 0.95 September 28: White count 7.3 hemoglobin 11.6 potassium 3.4 BUN 18 creatinine 1.18 Troponin I 0.026, 0.035 0.064 C. diff: Negative White count 12.9 hemoglobin 13.8 platelets 286 potassium 4.1 BUN 24 creatinine 1.5 EKG tracing personally reviewed by me atrial flutter rate around 80 Chest x-ray film personally reviewed by me-some hyperinflation. Atelectasis. X-ray complete right: Unstable trimalleolar fracture subluxation right ankle Previous labs: February 2021 March 06: Creatinine 1.07 Assessment and plan: -Acute right ankle trimalleolar fracture secondary to fall Close reduction and long leg splint. Surgery down the line By Dr. John -IV heparin monitoring: Discontinued Follow PTT -COPD in a X smoker trelegy -Chronic xerostomia -Primary osteoarthritis Pain medications as needed -Hypertensive heart disease -Chronic urinary stress incontinence Detrol LA 4 mg daily -Troponin leak likely from hemodynamic mismatch from. / asystole Cardiac catheterization showed minimal CAD. -Anxiety not otherwise specified Xanax 0.5 mg twice a day when necessary, Paxil 40 mg daily -Essential hypertension Monitor blood pressure -Persistent atrial flutter fibrillation: Rate controlled eliquis. -Acute kidney injury from patient having diarrhea: Better. Admission creatinine 1.5 -Acute metabolic acidosis from diarrhea: Corrected Bicarbonate drip. - hypokalemia: Replace -Acute congestive heart failure from diastolic dysfunction EF 55-60%: Slow to respond. Increase IV Lasix 40 mg every 8. -Acute hypoxic respiratory failure from pulmonary edema: Slow to respond Currently on 3 L nasal cannula IV Lasix 40 mg twice a day. Fluid restriction 1800 mL a day. Other medications to continue. Discussed at length with the patient. Check proBNP in the morning. Replace potassium.
[2021-10-06] MEDS: POTASSIUM CHLORIDE ER 20 MEQ TAB.ER PO SCH ×2 (15:25→20:21)
[2021-10-06] MEDS: PILOCARPINE 5 MG TAB PO SCH ×2 (15:25→22:17)
[2021-10-06 16:45] LABS: Glucose,Whole Blood 123 mg/dL (75-99)
[2021-10-06 20:11] LABS: Glucose,Whole Blood 110 mg/dL (75-99)
[2021-10-06] MEDS: ATORVASTATIN 40 MG TAB PO SCH (20:21)
[2021-10-06] MEDS: GABAPENTIN 300 MG CAP PO SCH (20:21)
[2021-10-07] MEDS: FUROSEMIDE 10 MG/ML 4 ML VIAL IV SCH (05:10)
[2021-10-07 06:04] LABS: Glucose,Whole Blood 108 mg/dL (75-99)
[2021-10-07] MEDS: IPRATROPIUM-ALBUTEROL 3 ML NEB INHALATION SCH ×3 (08:00→19:46)
[2021-10-07] MEDS: SYMBICORT 160-4.5 MCG INHALER INHALATION SCH ×2 (08:00→19:46)
--- NOTE | 2021-10-07 08:11 | XR ---
EXAMINATION TYPE: XR chest 1V portable DATE OF EXAM: 10/07/2021 COMPARISON: X-ray dated 10/05/2021 HISTORY: Follow-up pulmonary edema TECHNIQUE: Single frontal view of the chest is obtained. FINDINGS: Less pulmonary vascular congestion appreciated today. Persistent bilateral basal pulmonary atelectasi s and small pleural effusions, slightly larger on the right side. Prominent interstitial lung marking s, unchanged compared to the previous. Possible associated COPD. Unchanged cardiomediastinal silhouette. Aortic atherosclerotic calcificatio ns. Degenerative changes of the thoracic spine. IMPRESSION: Minimal interval changes as described above.
[2021-10-07] MEDS: APIXABAN 5 MG TAB PO SCH ×2 (08:33→20:46)
[2021-10-07] MEDS: PARoxetine 20 MG TAB PO SCH (08:33)
[2021-10-07] MEDS: POTASSIUM CHLORIDE ER 20 MEQ TAB.ER PO SCH ×2 (08:33→20:46)
[2021-10-07] MEDS: ASPIRIN 81 MG PO SCH (08:33)
[2021-10-07] MEDS: buPROPion XL 300 MG TAB.ER.24H PO SCH (08:34)
[2021-10-07] MEDS: OXYBUTYNIN 10 MG TAB.ER.24 PO SCH (08:34)
[2021-10-07] MEDS: PILOCARPINE 5 MG TAB PO SCH ×3 (08:34→20:46)
[2021-10-07 09:28] LABS: Calcium 8.7 mg/dL (8.4-10.2); Potassium 4.1 mmol/L (3.5-5.1)
[2021-10-07] MEDS: ALPRAZolam 0.5 MG TAB PO PRN (10:35)
[2021-10-07 11:57] LABS: Glucose,Whole Blood 126 mg/dL (75-99)
[2021-10-07] MEDS ORDERED: FUROSEMIDE 10 MG/ML 10 ML VIAL IV SCH (14:00)
--- NOTE | 2021-10-07 14:56 | P.PN ---
Progress Note - Text Progress Note Date: 10/07/21 History presenting complaint: 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 Chronic stable medical conditions include GERD, hypertension, colon cancer, seizure, sciatica, COPD. patient was here in the hospital in February 2021 with right brainstem thalamic stroke. Patient has been noticing last few days that she gets dizzy when she stands up. She's been having anywhere from 3-4 BMs a day. Last few days. Oral intake has been fair. Quite often times she will not have breakfast and lunch and just have her dinner. Patient has known atrial flutter fibrillation for which she is on eliquis. Did not take her medication this morning. Patient got a bit dizzy and lost her balance injuring her right ankle. In the ER x-ray studies confirmed right ankle fracture. No chest pain or palpitation. September 28: Patient was taken to the OR yesterday. Was in atrial flutter. In the perioperative period patient went into a asystole. Received about 1 minute of CPR. Came back. Surgery was postponed. Splint was placed. Patient brought to the ICU. Small troponin leak. Currently sitting up in bed. Eating lunch. Remains in atrial flutter. Being followed by cardiology September 29: ICU. Telemetry shows atrial flutter controlled. Per cardiology patient's previous event monitor showed atrial flutter and possible V. tach. Patient is put on IV heparin plan for cardiac catheterization on . September 6: ICU. IV heparin. Remains in atrial flutter. Pain control in the right leg. Plan for cardiac catheterization tomorrow. October 01: ICU. Patient underwent cardiac catheterization. No significant disease. Atrial flutter. No chest pain or shortness of breath. IV heparin. Patient not scheduled for surgery to few days later. We'll start eliquis October 02: Moved out of the ICU. Atrial flutter controlled. On eliquis. Acidotic. Started on bicarbonate drip by pulmonary. Eating fair. October 03: Remains in atrial flutter. Rate controlled. Bicarbonate drip discontinued. Low potassium being replaced. Oral intake fair. October 04: Atrial flutter rate controlled. Potassium corrected. Pending to go to rehab. Patient was chronic dry mouth. Discussed. October 05: Atrial flutter. Remains hypoxic on 5 L. Because of chronic dry mouth takes increasing by mouth fluids. Patient put on a restriction. 1 dose of IV Lasix 40 mg given. Discussed at length the patient. X-ray from yesterday did show pulmonary edema. October 06: On IV Lasix 40 mg every 12. On 3 L nasal cannula. Increase IV Lasix to 40 mg every 8 for today. Repeat check stat x-ray BNP tomorrow and labs tomorrow. 4 chronic dry mouth start Salagen 5 mg 3 times a day. There was discussed at length with the patient. October 07: Patient FiO2 down to 4 L. Encouraged to use incentive spirometry. Salagen was started yesterday. Patient is a bit frustrated as she is not getting better quickly. Also spoke to the surgeon. Also spoke to patient's over the phone and given an update. He does understand bigger picture. Use Lasix 60 mg IV. Discontinue IV Lasix after today. Active Medications Acetaminophen (Acetaminophen Tab 325 Mg Tab) 650 mg PO Q6HR PRN PRN Reason: Fever and/ or Pain Albuterol/Ipratropium (Ipratropium-Albuterol 3 Ml Neb) 3 ml INHALATION RT-TID [facility] Last Admin: 10/07/21 11:42 Dose: 3 ml Documented by: Alprazolam (Alprazolam 0.5 Mg Tab) 0.5 mg PO BID PRN PRN Reason: Anxiety Last Admin: 10/07/21 10:35 Dose: 0.5 mg Documented by: Apixaban (Apixaban 5 Mg Tab) 5 mg PO BID [facility]; Protocol Last Admin: 10/07/21 08:33 Dose: 5 mg Documented by: Aspirin (Aspirin 81 Mg) 81 mg PO DAILY [facility] Last Admin: 10/07/21 08:33 Dose: 81 mg Documented by: Atorvastatin Calcium (Atorvastatin 40 Mg Tab) 40 mg PO HS [facility] Last Admin: 10/06/21 20:21 Dose: 40 mg Documented by: Budesonide/Formoterol Fumarate (Symbicort 160-4.5 Mcg Inhaler) 2 puff INHALATION RT-BID [facility] Last Admin: 10/07/21 08:00 Dose: 2 puff Documented by: Bupropion HCl (Bupropion Xl 300 Mg Tab.Er.24h) 300 mg PO DAILY [facility] Last Admin: 10/07/21 08:34 Dose: 300 mg Documented by: Diphenoxylate HCl/Atropine (Diphenox-Atrop 2.5-0.025 Mg 1 Each Tab) 2 each PO BID PRN PRN Reason: Diarrhea Last Admin: 10/03/21 23:28 Dose: 2 each Documented by: Furosemide (Furosemide 10 Mg/Ml 10 Ml Vial) 60 mg IV Q8H [facility] Stop: 10/07/21 23:59 Gabapentin (Gabapentin 300 Mg Cap) 300 mg PO HS [facility] Last Admin: 10/06/21 20:21 Dose: 300 mg Documented by: Miscellaneous Information (Potassium Replacement Protocol 1 Each Misc) 1 each MISCELLANE DAILY PRN; Protocol PRN Reason: Per Protocol Miscellaneous Information (Potassium Replacement Protocol 1 Each Misc) 1 each MISCELLANE DAILY PRN; Protocol PRN Reason: Per Protocol Oxybutynin Chloride (Oxybutynin 10 Mg Tab.Er.24) 10 mg PO DAILY [facility] Last Admin: 10/07/21 08:34 Dose: 10 mg Documented by: Paroxetine HCl (Paroxetine 20 Mg Tab) 40 mg PO DAILY [facility] Last Admin: 10/07/21 08:33 Dose: 40 mg Documented by: Pilocarpine HCl (Pilocarpine 5 Mg Tab) 5 mg PO TID [facility] Last Admin: 10/07/21 08:34 Dose: 5 mg Documented by: Potassium Chloride (Potassium Chloride Er 20 Meq Tab.Er) 20 meq PO BID [facility] Stop: 10/07/21 23:59 Last Admin: 10/07/21 08:33 Dose: 20 meq Documented by: Past medical history to include: Colon cancer treated with chemotherapy and surgery in 2015, sciatica, essential hypertension, GERD, COPD. Acute right brainstem thalamic stroke in February 2021 Social history: . Smoked less than a pack a day for 45 years stopped in 2016. Alcohol occasionally. Family history: Bladder cancer Physical examination: VITAL SIGNS: 97.9, 52, 18, 113/56, 94% on 6 L GENERAL: Reclining in bed , breathing better EYES: Pupils equal. Conjunctiva normal. HEENT: External appearance of nose and ears normal, oral cavity dry mucous membranes NECK: JVD not raised; masses not palpable. HEART: Heart sounds irregular; no edema. LUNGS: Respiratory rate increased; some basal crackles ABDOMEN: Soft, nontender, liver spleen not palpable, no masses palpable. PSYCH: Alert and oriented x3; mood and affect anxious MUSCULAR skeletal: Evidence of OA . Right ankle in the splint dressing INVESTIGATIONS, reviewed in the clinical context: October 07: Potassium 4.1 BUN 19 creatinine 1.12 October 06: Potassium 3.3 creatinine 0.98 proBNP 4020 October 05: Potassium 3.1 creatinine 0.87 October 04: Potassium 3.8 creatinine 1.03 October 03: Sodium 141 potassium 2.7 creatinine 0.87 bicarb 23 October 8: 15 hemoglobin 10.9 potassium 3.4 creatinine 0.94 bicarb 11 October 7: White count 6 hemoglobin 11.3 potassium 3.4 creatinine 1.0 September 30: Echo 6.9 hemoglobin 10.5 2-D echocardiogram: Severe concentric LVH. EF 55-60%. Possible LVOT obstruction. Moderate MR. September 29: White count 8.9 hemoglobin 12 potassium 4.3 at 0.95 September 28: White count 7.3 hemoglobin 11.6 potassium 3.4 BUN 18 creatinine 1.18 Troponin I 0.026, 0.035 0.064 C. diff: Negative White count 12.9 hemoglobin 13.8 platelets 286 potassium 4.1 BUN 24 creatinine 1.5 EKG tracing personally reviewed by me atrial flutter rate around 80 Chest x-ray film personally reviewed by me-some hyperinflation. Atelectasis. X-ray complete right: Unstable trimalleolar fracture subluxation right ankle Previous labs: February 2021 March 06: Creatinine 1.07 Assessment and plan: -Acute right ankle trimalleolar fracture secondary to fall Close reduction and long leg splint. Surgery down the line By Dr. John -IV heparin monitoring: Discontinued Follow PTT -COPD in a X smoker trelegy -Chronic xerostomia -Primary osteoarthritis Pain medications as needed -Hypertensive heart disease -Chronic urinary stress incontinence Detrol LA 4 mg daily -Troponin leak likely from hemodynamic mismatch from. / asystole Cardiac catheterization showed minimal CAD. -Anxiety not otherwise specified Xanax 0.5 mg twice a day when necessary, Paxil 40 mg daily -Essential hypertension Monitor blood pressure -Persistent atrial flutter fibrillation: Rate controlled eliquis. -Acute kidney injury from patient having diarrhea: Better. Admission creatinine 1.5 -Acute metabolic acidosis from diarrhea: Corrected Bicarbonate drip. - hypokalemia: Replace -Acute congestive heart failure from diastolic dysfunction EF 55-60%: Increase IV Lasix 60 mg every 8. -Acute hypoxic respiratory failure from pulmonary edema: Currently on 4 L nasal cannula Discussed with Dr. John from orthopedics. Discussed at length with the patient. Also updated patient's on the phone. DC IV Lasix after today. Check labs. Hopefully DC to ECF tomorrow. Total time spent about 45 minutes with over 30 minutes of discussion.
[2021-10-07 17:02] LABS: Glucose,Whole Blood 93 mg/dL (75-99)
[2021-10-07 20:03] LABS: Glucose,Whole Blood 101 mg/dL (75-99)
[2021-10-07] MEDS: ATORVASTATIN 40 MG TAB PO SCH (20:45)
[2021-10-07] MEDS: GABAPENTIN 300 MG CAP PO SCH (20:45)
[2021-10-08 06:07] LABS: Glucose,Whole Blood 109 mg/dL (75-99)
[2021-10-08] MEDS: SYMBICORT 160-4.5 MCG INHALER INHALATION SCH (08:04)
[2021-10-08] MEDS: IPRATROPIUM-ALBUTEROL 3 ML NEB INHALATION SCH ×2 (08:05→11:36)
--- NOTE | 2021-10-08 08:19 | P.PN ---
Subjective Progress Note Date: 10/07/21 Late entry: This patient is a 71- year old female who is status-post right ankle closed reduction and splint application for bimalleolar ankle fracture dislocation on 09/27/21. Patient was re-evaluated bedside on 10/07/[address] John. Patient states her ankle pain is well-controlled. No new complaints in regard to the right ankle. Dr. Villegas is bedside, hopefully planning for discharge to rehab to [place]. Objective - Vital Signs Vital signs: Vital Signs Temp 98.3 F 10/07/21 23:38 Pulse 50 L 10/08/21 08:08 Resp 18 10/08/21 04:55 BP 111/66 10/08/21 04:55 Pulse Ox 91 L 10/08/21 04:55 Intake & Output 10/07/21 10/08/21 10/08/21 18:59 06:59 18:59 Intake Total 118 Output Total 2 Balance 118 -2 Intake: Oral 118 Output: Stool 2 Other: Voiding Method External Catheter External Catheter - Exam On examination, patient is sitting up in bed in no apparent distress. She is alert and oriented 3. On inspection of the right ankle, there is a clean, dry, intact bulky Purcell splint in place. The visible portion of the toes are warm and well-perfused with brisk capillary refill distally. Patient is able to wiggle toes appropriately. - Labs CBC & Chem 7: 10/02/21 08:35 10/07/21 08:39 Labs: Abnormal Lab Results - Last 24 Hours (Table) 10/07/21 10/07/21 10/07/21 Range/Units 08:39 11:54 20:02 Carbon Dioxide 31 H (22-30) mmol/L BUN 19 H (7-17) mg/dL Creatinine 1.12 H (0.52-1.04) mg/dL Glucose 115 H (74-99) mg/dL POC Glucose (mg/dL) 126 H 101 H (75-99) mg/dL 10/08/21 Range/Units 06:06 Carbon Dioxide (22-30) mmol/L BUN (7-17) mg/dL Creatinine (0.52-1.04) mg/dL Glucose (74-99) mg/dL POC Glucose (mg/dL) 109 H (75-99) mg/dL Assessment and Plan Assessment: Status-post right ankle closed reduction and splint application for bimalleolar ankle fracture dislocation on 09/27/21. Plan: - No plans for surgical intervention during this hospital stay. - Strict non-weight bearing right lower extremity. - Keep splint clean, dry, intact. Do not remove splint. - Keep right ankle elevated for swelling control. - Medical management per internal medicine, cardiology. - Following discharge, patient should follow-up with Dr. John in the office for continued management of her right ankle fracture.
[2021-10-08] MEDS: ASPIRIN 81 MG PO SCH (09:05)
[2021-10-08] MEDS: PILOCARPINE 5 MG TAB PO SCH (09:05)
[2021-10-08] MEDS: buPROPion XL 300 MG TAB.ER.24H PO SCH (09:05)
[2021-10-08] MEDS: APIXABAN 5 MG TAB PO SCH (09:05)
[2021-10-08] MEDS: OXYBUTYNIN 10 MG TAB.ER.24 PO SCH (09:05)
[2021-10-08] MEDS: PARoxetine 20 MG TAB PO SCH (09:05)
[2021-10-08 09:51] VITALS: TEMP 98.4
[2021-10-08 09:52] LABS: Calcium 8.8 mg/dL (8.4-10.2); Potassium 4.3 mmol/L (3.5-5.1)
[2021-10-08 11:29] LABS: Glucose,Whole Blood 99 mg/dL (75-99)
[2021-10-08] MEDS: ALPRAZolam 0.5 MG TAB PO PRN (13:55)
--- NOTE | 2021-10-08 13:59 | P.DS ---
Providers Date of admission: 09/27/21 15:05 Expected date of discharge: 10/08/21 Attending physician: Juan Villegas Consults: 09/27/21 15:05 Consult Physician Urgent Consulting Provider: Juan Villegas Consult Reason/Comments: Medical management Do you want consulting provider notified?: Yes 09/27/21 16:53 Consult Physician Routine Consulting Provider: William Ramirez Consult Reason/Comments: ICU management Do you want consulting provider notified?: Already Contacted 09/27/21 16:54 Consult Physician Routine Consulting Provider: Farooq Perez Consult Reason/Comments: asystole in OR, a flutter Do you want consulting provider notified?: Yes 09/28/21 12:07 Consult Physician Routine Consulting Provider: Lino John Consult Reason/Comments: known Do you want consulting provider notified?: Already Contacted 10/03/21 09:49 Consult Physician Urgent Consulting Provider: Claudia Key Consult Reason/Comments: continued diarrhea, unknown cause Do you want consulting provider notified?: Yes Primary care physician: [facility] Hospital Course: Hospital course: 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 Chronic stable medical conditions include GERD, hypertension, colon cancer, seizure, sciatica, COPD. February 2021 - right brainstem thalamic stroke. Atrial flutter-fibrillation on eliquis. Patient presented with feeling dizzy and lost her balance with a right ankle fracture. was taken to the OR Was in atrial flutter. In the perioperative period patient went into a asystole. Received about 1 minute of CPR. Came back. Surgery was postponed. Taken to the ICU. Small troponin leak. Per cardiology patient's previous event monitor showed atrial flutter and possible V. tach. cardiac catheterization.- No significant disease. Patient has chronic dry mouth. For that Salagen was started. Patient going to pulmonary edema. Received IV Lasix. Gradually cutback. Was hypoxic. Oxygen requirement from 6 L came down to 2 L. Today: Feeling much better. 2 L nasal cannula. Breathing better. Oral intake fair. Splint in the right leg. Will follow with Dr. John's outpatient. Go to rehab today. Questions answered. Discussion and discharge planning more than 35 minutes Past medical history to include: Colon cancer treated with chemotherapy and surgery in 2016, sciatica, essential hypertension, GERD, COPD. Acute right brainstem thalamic stroke in February 2021 Social history: . Smoked less than a pack a day for 45 years stopped in 2017. Alcohol occasionally. Family history: Bladder cancer Physical examination: VITAL SIGNS: 98.4, 50, 20, 98/50, 91% on 2 L GENERAL: Reclining in bed , breathing better EYES: Pupils equal. Conjunctiva normal. HEENT: External appearance of nose and ears normal, oral cavity dry mucous membranes NECK: JVD not raised; masses not palpable. HEART: Heart sounds irregular; no edema. LUNGS: Respiratory rate increased; some basal crackles ABDOMEN: Soft, nontender, liver spleen not palpable, no masses palpable. PSYCH: Alert and oriented x3; mood and affect anxious MUSCULAR skeletal: Evidence of OA . Right ankle in the splint dressing INVESTIGATIONS, reviewed in the clinical context: October 08: Sodium 142 potassium 4.3 BUN 23 creatinine 1.34 2-D echocardiogram: Severe concentric LVH. EF 55-60%. Possible LVOT obstruction. Moderate MR. September 29: White count 8.9 hemoglobin 12 potassium 4.3 at 0.95 September 28: White count 7.3 hemoglobin 11.6 potassium 3.4 BUN 18 creatinine 1.18 Troponin I 0.026, 0.035 0.064 C. diff: Negative White count 12.9 hemoglobin 13.8 platelets 286 potassium 4.1 BUN 24 creatinine 1.5 EKG tracing personally reviewed by me atrial flutter rate around 80 Chest x-ray film personally reviewed by me-some hyperinflation. Atelectasis. X-ray complete right: Unstable trimalleolar fracture subluxation right ankle Previous labs: February 2021 March 06: Creatinine 1.07 Assessment and plan: -Acute right ankle trimalleolar fracture secondary to fall Close reduction and long leg splint. Surgery down the line By Dr. John -IV heparin monitoring: Discontinued Follow PTT -COPD in a X smoker trelegy -Moderate mitral regurgitation Follow clinically -Chronic xerostomia Salagen -Primary osteoarthritis Pain medications as needed -Hypertensive heart disease -Chronic urinary stress incontinence Detrol LA 4 mg daily -Troponin leak likely from hemodynamic mismatch from. / asystole Cardiac catheterization showed minimal CAD. -Anxiety not otherwise specified Xanax 0.5 mg twice a day when necessary, Paxil 40 mg daily -Essential hypertension Monitor blood pressure -Persistent atrial flutter fibrillation: Rate controlled eliquis. -Acute kidney injury from patient having diarrhea: Better. Admission creatinine 1.5 -Acute metabolic acidosis from diarrhea: Corrected Bicarbonate drip. - hypokalemia: Replace -Acute congestive heart failure from diastolic dysfunction EF 55-60%: : Better Lasix 40 mg daily -Acute hypoxic respiratory failure from pulmonary edema:: Better Currently on 2 L nasal cannula -Full code Disposition: [facility] Fluid restrict: 2000 mL a day Plan - Discharge Summary Discharge Rx Participant: No New Discharge Prescriptions: New Ipratropium-Albuterol Nebulize [Duoneb 0.5 mg-3 mg/3 ml Soln] 3 ml INHALATION RT-TID ml Acetaminophen Tab [Tylenol] 650 mg PO Q6HR PRN tab PRN Reason: Fever And/ Or Pain Pilocarpine [Salagen] 5 mg PO TID tab Continue PARoxetine HCL 40 mg PO DAILY Melatonin 10 mg PO HS Aspirin 81 mg PO DAILY Atorvastatin [Lipitor] 40 mg PO HS #30 tablet Gabapentin 300 mg PO HS #3 cap ALPRAZolam [Xanax] 0.5 mg PO BID PRN #6 tab PRN Reason: Anxiety Vits A,C,E/Lutein/Minerals [Ocuvite with Lutein Tablet] 1 tab PO DAILY Tolterodine ER [Detrol LA] 4 mg PO DAILY Fluticasone/Umeclidin/Vilanter [Trelegy Ellipta 100-62.5-25] 1 puff INHALATION RT-DAILY Apixaban [Eliquis] 5 mg PO BID buPROPion HCL [Wellbutrin XL] 300 mg PO DAILY Diphenox-Atrop 2.5-0.025 mg [Lomotil] 2 tab PO BID PRN #12 tab PRN Reason: Diarrhea Discontinued Felodipine ER [Plendil] 5 mg PO DAILY Metoprolol Succinate [Toprol XL] 25 mg PO DAILY Discharge Medication List Fluticasone/Umeclidin/Vilanter [Trelegy Ellipta 100-62.5-25] 1 puff INHALATION RT-DAILY 03/04/21 [History] Melatonin 10 mg PO HS 03/04/21 [History] PARoxetine HCL 40 mg PO DAILY 03/04/21 [History] Tolterodine ER [Detrol LA] 4 mg PO DAILY 03/04/21 [History] Vits A,C,E/Lutein/Minerals [Ocuvite with Lutein Tablet] 1 tab PO DAILY 03/04/21 [History] Aspirin 81 mg PO DAILY 03/06/21 [Rx] Atorvastatin [Lipitor] 40 mg PO HS #30 tablet 03/06/21 [Rx] Apixaban [Eliquis] 5 mg PO BID 09/27/21 [History] buPROPion HCL [Wellbutrin XL] 300 mg PO DAILY 09/27/21 [History] ALPRAZolam [Xanax] 0.5 mg PO BID PRN #6 tab 10/08/21 [Rx] Acetaminophen Tab [Tylenol] 650 mg PO Q6HR PRN tab 10/08/21 [Rx] Diphenox-Atrop 2.5-0.025 mg [Lomotil] 2 tab PO BID PRN #12 tab 10/08/21 [Rx] Furosemide [Lasix] 40 mg PO DAILY #1 tablet 10/08/21 [Rx] Gabapentin 300 mg PO HS #3 cap 10/08/21 [Rx] Ipratropium-Albuterol Nebulize [Duoneb 0.5 mg-3 mg/3 ml Soln] 3 ml INHALATION RT-TID ml 10/08/21 [Rx] Metoprolol Tartrate [Lopressor] 12.5 mg PO BID #1 tablet 10/08/21 [Rx] Pilocarpine [Salagen] 5 mg PO TID tab 10/08/21 [Rx] Follow up Appointment(s)/Referral(s): Ronny Phelps MD [STAFF PHYSICIAN] - 1 Week Davis Ty DO [Primary Care Provider] - 1-2 days Janusz Key MD [STAFF PHYSICIAN] - 1 Week Lino John MD [Medical Doctor] - 1 Week Activity/Diet/Wound Care/Special Instructions: 30 day event monitor - started on 10/03/11 - see instruction sheet - needs to be mailed back on 11/02/11 (if patient still at your facility)
[2021-10-08 15:51] VITALS: BP 121/55; PULSE 58; RESP 16
== END 2021-10-08 15:36 | DRG 562 ==
LOC: EC 13:00 → 4SSUR 15:05 → 2SICU 16:31 → 3SCARD 10-01 16:30
PROVIDERS: ADMIT Hospitalist; ATTEND Hospitalist
PROC: 0QSJXZZ Reposition Right Fibula, External Approach (ICD-10-PCS; 2021-09-27)
PROC: 0QSGXZZ Reposition Right Tibia, External Approach (ICD-10-PCS; 2021-09-27)
PROC: 5A12012 Performance of Cardiac Output, Single, Manual (ICD-10-PCS; principal; 2021-09-27 16:00)
PROC: 4A023N7 Measurement of Cardiac Sampling and Pressure, Left Heart, Percutaneous Approach (ICD-10-PCS; 2021-10-01)
PROC: B2111ZZ Fluoroscopy of Multiple Coronary Arteries using Low Osmolar Contrast (ICD-10-PCS; 2021-10-01)
DX: S82.851A Displaced trimalleolar fracture of right lower leg, initial encounter for closed fracture (principal); J96.01 Acute respiratory failure with hypoxia; I46.9 Cardiac arrest, cause unspecified; I50.31 Acute diastolic (congestive) heart failure; N17.9 Acute kidney failure, unspecified; I47.2 Ventricular tachycardia; E87.2 Acidosis; I48.3 Typical atrial flutter; I47.1 Supraventricular tachycardia; J98.11 Atelectasis; I48.0 Paroxysmal atrial fibrillation; G40.909 Epilepsy, unspecified, not intractable, without status epilepticus; I11.0 Hypertensive heart disease with heart failure; J44.9 Chronic obstructive pulmonary disease, unspecified; R00.1 Bradycardia, unspecified; E87.6 Hypokalemia; F32.A Depression, unspecified; R19.7 Diarrhea, unspecified; F41.9 Anxiety disorder, unspecified; I08.0 Rheumatic disorders of both mitral and aortic valves; I25.10 Atherosclerotic heart disease of native coronary artery without angina pectoris; K11.7 Disturbances of salivary secretion; M54.30 Sciatica, unspecified side; N39.3 Stress incontinence (female) (male); K21.9 Gastro-esophageal reflux disease without esophagitis; M19.91 Primary osteoarthritis, unspecified site; R77.8 Other specified abnormalities of plasma proteins; Z79.01 Long term (current) use of anticoagulants; Z79.82 Long term (current) use of aspirin; Z79.51 Long term (current) use of inhaled steroids; Z79.899 Other long term (current) drug therapy; Z85.038 Personal history of other malignant neoplasm of large intestine; Z92.21 Personal history of antineoplastic chemotherapy; Z90.49 Acquired absence of other specified parts of digestive tract; Z87.19 Personal history of other diseases of the digestive system; Z90.89 Acquired absence of other organs; Z87.891 Personal history of nicotine dependence; Z87.81 Personal history of (healed) traumatic fracture; Z86.73 Personal history of transient ischemic attack (TIA), and cerebral infarction without residual deficits; Z98.890 Other specified postprocedural states; Z71.3 Dietary counseling and surveillance; W01.0XXA Fall on same level from slipping, tripping and stumbling without subsequent striking against object, initial encounter; Y92.009 Unspecified place in unspecified non-institutional (private) residence as the place of occurrence of the external cause; Z88.0 Allergy status to penicillin; Z88.2 Allergy status to sulfonamides; Z88.8 Allergy status to other drugs, medicaments and biological substances; Z80.52 Family history of malignant neoplasm of bladder; Z80.0 Family history of malignant neoplasm of digestive organs
CPT/HCPCS: 36415; 71045; 80048; 80053; 81001; 82272; 82550; 82553; 83880; 84132; 84484; 85025; 85610; 85730; 87324; 93005; 93270; 93306; 93458; 94640; 94760; 96360; 99285

== ENCOUNTER 2021-10-20 14:03 | Observation (INO) | payer MEDICARE ==
[2021-10-16 13:33] VITALS: BMI 28.8
[~2021-10-20 14:03] MED LIST changes: +HYDROmorphone 0.5 MG/0.5 ML SYRINGE IVP PRN; -LACTATED RINGERS 1,000 ML IV SCH; +LIDOCAINE 1% (10MG/ML) FOR IV START INTRADERMA PRN; -LIDOCAINE 1% INJ 10MG/ML (20 ML MDV) ONE; +MIDAZOLAM 2 MG/2 ML VIAL IV ONE; +ONDANSETRON 4 MG/2 ML VIAL IVP ONE; -PROPOFOL 10 MG/ML 20 ML VIAL IV ONE
[2021-10-20] MEDS: LACTATED RINGERS 1,000 ML IV SCH (14:47)
[2021-10-20] MEDS ORDERED: DEXAMETHASONE SOD PHOSPHATE 4 MG/ML 1 ML VIAL IVP ONE (14:55)
[2021-10-20 15:34] LABS: Magnesium 1.8 mg/dL (1.6-2.3)
[2021-10-20 15:39] LABS: Potassium 2.7 mmol/L (3.5-5.1)
[2021-10-20] MEDS ORDERED: POTASSIUM CHLORIDE 10 MEQ in WATER FOR INJECTION 1 100ML.BAG IVPB STA (15:54)
[2021-10-20] MEDS: POTASSIUM CHLORIDE 10 MEQ in WATER FOR INJECTION 1 100ML.BAG IVPB STA ×2 (15:55→16:00)
--- NOTE | 2021-10-20 16:04 | P.ANPRN ---
Procedure Note - Anesthesia - Nerve Block Performed Right Popliteal Single Time Out Performed: Yes (1525) Date of Procedure: 10/20/21 Procedure Start Time: Procedure Stop Time: 15:36 Location of Patient: PreOp Indication: Acute Post-Operative Pain, Requested by Surgeon Sedation Type: Sedate with meaningful contact maintained Preparation: Sterile Prep Position: Left Lateral Catheter: None Needle Types: Pajunk Needle Gauge: 21 Ultrasound used to visualize needle placement: Yes Ultrasound used to observe medication spread: Yes Injectate: 0.5% Ropivacaine (see comment for volume) Blood Aspirated: No Pain Paresthesia on Injection Noted: No Resistance on Injection: Normal Image Stored and Saved: Yes Events: Uneventful and Well Tolerated (25 ml of block solution containing 20 mL of 0.5% preservative-free ropivacaine mixed with 4 mg dexamethasone, and 4 mL of preservative free normal saline)
--- NOTE | 2021-10-20 16:06 | P.ANPRN ---
Procedure Note - Anesthesia - Nerve Block Performed Right Adductor Canal Single Time Out Performed: Yes (1525) Date of Procedure: 10/20/21 Procedure Start Time: : Procedure Stop Time: 15:36 Location of Patient: PreOp Indication: Acute Post-Operative Pain, Requested by Surgeon Sedation Type: Sedate with meaningful contact maintained Preparation: Sterile Prep Position: Supine Catheter: None Needle Types: Pajunk Needle Gauge: 21 Ultrasound used to visualize needle placement: Yes Ultrasound used to observe medication spread: Yes Injectate: 0.5% Ropivacaine (see comment for volume) Blood Aspirated: No Pain Paresthesia on Injection Noted: No Resistance on Injection: Normal Image Stored and Saved: Yes Events: Uneventful and Well Tolerated (20 ml of block solution containing 10 mL of 0.5% preservative-free ropivacaine mixed with 4 mg dexamethasone, and 9 mL of preservative free normal saline)
[2021-10-20] MEDS ORDERED: ALPRAZolam 0.5 MG TAB PO PRN (16:44)
[2021-10-20] MEDS: POTASSIUM CHLORIDE ER 20 MEQ TAB.ER PO SCH ×2 (17:29→20:06)
[2021-10-20] MEDS: IPRATROPIUM-ALBUTEROL 3 ML NEB INHALATION SCH (19:48)
[2021-10-20] MEDS ORDERED: ACETAMINOPHEN TAB 325 MG TAB PO PRN (20:01)
[2021-10-20] MEDS ORDERED: LACTULOSE 20 GM/30 ML CUP PO PRN (20:01)
[2021-10-20] MEDS ORDERED: CALCIUM CARBONATE 500 MG CHEWABLE PO PRN (20:01)
[2021-10-20] MEDS ORDERED: NALOXONE 0.4 MG/ML 1 ML VIAL IV PRN (20:01)
[2021-10-20] MEDS: METOPROLOL TARTRATE 12.5 MG TAB PO SCH (20:06)
[2021-10-20] MEDS: MELATONIN 5 MG TABLET PO SCH (20:07)
[2021-10-20] MEDS: GABAPENTIN 300 MG CAP PO SCH (20:07)
[2021-10-20] MEDS: ATORVASTATIN 40 MG TAB PO SCH (20:07)
[2021-10-20] MEDS: PILOCARPINE 5 MG TAB PO SCH (20:08)
--- NOTE | 2021-10-20 21:18 | P.HPIM ---
History of Present Illness H&P Date: 10/20/21 Chief Complaint: Severe hypokalemia History of presenting complaint. 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 Chronic stable medical conditions include GERD, hypertension, colon cancer, seizure, sciatica, COPD. February 2021 - right brainstem thalamic stroke. Atrial flutter-fibrillation on eliquis. Chronic dry mouth-on Salagen. Was discharged on 2 L of nasal cannula. In the splint of the right leg. Patient was discharged to [facility] Patient was brought in today for surgery and in the preoperative labs for a low potassium of 2.7. Patient does feel weak and tired. Admitted for the same. No chest pain or palpitation. IV potassium was ordered also by mouth potassium was ordered. Some pain at the right foot. Review of systems: GEN.: Tired EYES: None HEENT: Chronic dry mouth NECK: None RESPIRATORY: None CARDIOVASCULAR: None GASTROINTESTINAL: None GENITOURINARY: None MUSCULOSKELETAL: Joint pains, right ankle splint LYMPHATICS: None HEMATOLOGICAL: None PSYCHIATRY: Bit forgetful NEUROLOGICAL: None Past medical history to include: Colon cancer treated with chemotherapy and surgery in 2015, sciatica, essential hypertension, GERD, COPD. Acute right brainstem thalamic stroke in February 2021, chronic dry mouth Social history: . Smoked less than a pack a day for 45 years stopped in 2016. Alcohol occasionally. Family history: Bladder cancer Physical examination: VITAL SIGNS: 96.4, 46, 16, 139/57, 92% on room air GENERAL: [BMI 22.5, reclining in bed, awake. EYES: Pupils equal. Conjunctiva normal. HEENT: External appearance of nose and ears normal, oral cavity dry mucous membranes. NECK: JVD not raised; masses not palpable. HEART: First and second heart sounds are normal; no edema. LUNGS: Respiratory rate normal; increased breath sound. ABDOMEN: Soft, nontender, liver spleen not palpable, no masses palpable. PSYCH: Alert and oriented x3; mood and affect normall. MUSCULOSKELETAL:No Clubbing/cyanosis;muscles-grossly intact. Evidence of OA. Right ankle in a splint NEUROLOGICAL: Cranial nerves grossly intact; no facial asymmetry, power and sensation grossly intact. LYMPHATICS: No lymph nodes palpable in the axilla and neck INVESTIGATIONS, reviewed in the clinical context: Potassium 2.7. Magnesium 1.8 2-D echocardiogram: Severe concentric LVH. EF 55-60%. Possible LVOT obstruction. Moderate MR. Previous labs: October 15: Hemoglobin 10.8 platelets 431 sodium 146 creatinine 1.6 Assessment and plan: -Severe hypokalemia. Aggressive replacement of potassium. Both by mouth and IV. Repeat labs. Telemetry. -Acute right ankle trimalleolar fracture secondary to fall on September 27. Close reduction and long leg splint. Pending surgery By Dr. John -COPD in a X smoker Symbicort 80/4.52 puffs twice a day -Moderate mitral regurgitation Follow clinically -Chronic xerostomia Salagen -Primary osteoarthritis Pain medications as needed -Hypertensive heart disease -Chronic urinary stress incontinence Detrol LA 4 mg daily -Anxiety not otherwise specified Xanax 0.5 mg twice a day when necessary, Paxil 40 mg daily -Essential hypertension Monitor blood pressure -Persistent atrial flutter fibrillation: Rate controlled eliquis-currently on hold for surgery. -Chronic kidney injury is 3 likely nephrosclerosis Baseline creatinine 1.5 - hypokalemia: Replace -Chronic congestive heart failure from diastolic dysfunction EF 55-60%: Lasix 40 mg daily-hold -Chronic hypoxic respiratory failure from COPD Currently on 2 L nasal cannula -Full code Telemetry. Aggressive replacement of potassium. Other medications to continue. Eliquis on hold for surgery. Otherwise patient is medically stable to proceed for surgery. Repeat potassium tonight. And repeat in the morning. Care was discussed with the patient. Hold Lasix. Past Medical History Past Medical History: Cancer, GERD/Reflux, GI Bleed, Hypertension, Mu sculoskeletal Disorder Additional Past Medical History / Comment(s): Colon cancer 2016/right colectomy- had surg. & chemo, CVA, COPD. Seizure, fx. R ankle, sciatica, chronic atrial flutter. History of Any Multi-Drug Resistant Organisms: None Reported Past Surgical History: Bowel Resection, Cholecystectomy, Orthopedic Surgery, Tonsillectomy Additional Past Surgical History / Comment(s): right wrist surgery post fracture, robotic colectomy Past Anesthesia/Blood Transfusion Reactions: No Reported Reaction Past Psychological History: Anxiety Smoking Status: Former smoker Past Alcohol Use History: Occasional Additional Past Alcohol Use History / Comment(s): Quit smoking Jun 2016, smoked 45 yrs, <1PPD. Past Drug Use History: None Reported - Past Family History Mother Family Medical History: Cancer Additional Family Medical History / Comment(s): Bladder cancer. Sister(s) Family Medical History: Cancer Additional Family Medical History / Comment(s): Colon cancer. Medications and Allergies Home Medications Medication Instructions Recorded Confirmed Type Fluticasone/Umeclidin/Vilanter 1 puff INHALATION RT-DAILY 03/04/21 10/20/21 History [Trelegy Ellipta 100-62.5-25] Melatonin 10 mg PO HS 03/04/21 10/20/21 History PARoxetine HCL 40 mg PO DAILY 03/04/21 10/20/21 History Vits A,C,E/Lutein/Minerals 1 tab PO DAILY 03/04/21 10/20/21 History [Ocuvite with Lutein Tablet] Aspirin 81 mg PO DAILY 03/06/21 10/20/21 Rx Atorvastatin [Lipitor] 40 mg PO HS #30 tablet 03/06/21 10/20/21 Rx Apixaban [Eliquis] 5 mg PO BID 09/27/21 10/20/21 History buPROPion HCL [Wellbutrin XL] 300 mg PO DAILY 09/27/21 10/20/21 History ALPRAZolam [Xanax] 0.5 mg PO BID PRN #6 tab 10/08/21 10/20/21 Rx Acetaminophen Tab [Tylenol] 650 mg PO Q6HR PRN tab 10/08/21 10/20/21 Rx Diphenox-Atrop 2.5-0.025 mg 2 tab PO BID PRN #12 tab 10/08/21 10/20/21 Rx [Lomotil] Furosemide [Lasix] 40 mg PO DAILY #1 tablet 10/08/21 10/20/21 Rx Gabapentin 300 mg PO HS #3 cap 10/08/21 10/20/21 Rx Ipratropium-Albuterol Nebulize 3 ml INHALATION RT-TID ml 10/08/21 10/20/21 Rx [Duoneb 0.5 mg-3 mg/3 ml Soln] Metoprolol Tartrate [Lopressor] 12.5 mg PO BID #1 tablet 10/08/21 10/20/21 Rx Pilocarpine [Salagen] 5 mg PO TID tab 10/08/21 10/20/21 Rx Oxybutynin Chloride [Oxybutynin 10 mg PO DAILY 10/20/21 10/20/21 History Chloride ER] Potassium Chloride ER [K-Dur 10] 10 meq PO DAILY 10/20/21 10/20/21 History Allergies Allergy/AdvReac Type Severity Reaction Status Date / Time benazepril Allergy Anaphylaxis Verified 10/20/21 14:50 Penicillins Allergy Face Verified 10/20/21 14:50 swelling sertraline [From Zoloft] Allergy Face Verified 10/20/21 14:50 swelling Sulfa (Sulfonamide Allergy Face Verified 10/20/21 14:50 Antibiotics) swelling Physical Exam Vitals: Vital Signs Temp Pulse Pulse Resp BP Pulse Ox 10/20/21 20:05 55 L 10/20/21 19:50 47 L 10/20/21 19:18 44 L 16 10/20/21 16:59 44 L 16 135/63 95 10/20/21 15:39 45 L 16 107/53 96 10/20/21 14:36 96.4 F L 46 L 16 139/57 92 L Intake and Output 10/20/21 10/20/21 10/20/21 06:59 14:59 22:59 Intake Total 218 Balance 218 Intake: IV 100 Oral 118 Other: Voiding Method Bedpan Weight 59.42 kg 59.42 kg Results CBC & Chem 7: 10/20/21 15:16 Labs: Abnormal Lab Results - Last 24 Hours (Table) 10/20/21 Range/Units 15:16 Potassium 2.7 L* (3.5-5.1) mmol/L Thrombosis Risk Factor Assmnt - Choose All That Apply Any of the Below Risk Factors Present?: No Other Risk Factors: Yes Each Risk Factor Represents 2 Points: Age 61-74 years Thrombosis Risk Factor Assessment Total Risk Factor Score: 2 Thrombosis Risk Factor Assessment Level: Low Risk
[2021-10-20] MEDS ORDERED: POTASSIUM CHLORIDE ER 20 MEQ TAB.ER PO STA (22:05)
[2021-10-21] MEDS: LACTATED RINGERS 1,000 ML IV SCH ×2 (06:15→20:38)
[2021-10-21] MEDS: IPRATROPIUM-ALBUTEROL 3 ML NEB INHALATION SCH ×3 (07:30→19:28)
[2021-10-21] MEDS: SYMBICORT 80-4.5 MCG INHALER INHALATION SCH ×2 (07:30→19:28)
[2021-10-21 07:33] LABS: African American GFR (CKD) 48 (>60 ml/min/1.73 sqM); Anion Gap 11 mmol/L; Blood Urea Nitrogen 28 mg/dL (7-17); Carbon Dioxide 20 mmol/L (22-30); Chloride 110 mmol/L (98-107); Glucose 143 mg/dL (74-99); Non-African American GFR(CKD) 41 (>60 ml/min/1.73 sqM); Potassium 3.9 mmol/L (3.5-5.1); Sodium 141 mmol/L (137-145)
[2021-10-21] MEDS: PILOCARPINE 5 MG TAB PO SCH ×3 (08:12→20:43)
[2021-10-21] MEDS: POTASSIUM CHLORIDE ER 10 MEQ TAB.ER.PRT PO SCH (08:12)
[2021-10-21] MEDS: PARoxetine 20 MG TAB PO SCH (08:12)
[2021-10-21] MEDS: buPROPion XL 300 MG TAB.ER.24H PO SCH (08:12)
[2021-10-21] MEDS: OXYBUTYNIN 10 MG TAB.ER.24 PO SCH (08:12)
[2021-10-21] MEDS: METOPROLOL TARTRATE 12.5 MG TAB PO SCH (09:00)
[2021-10-21] MEDS ORDERED: FUROSEMIDE 40 MG TAB PO SCH (09:00)
--- NOTE | 2021-10-21 10:26 | P.CNOR ---
History of Present Illness - [facility] Consult date: 10/21/21 History of present illness: This patient is a 71-year-old female with past medical history of hypertension, colon cancer, seizure, COPD, stroke, atrial flutter/fibrillation on eliquis who presented to [facility] yesterday for a scheduled right open reduction internal fixation for right bimalleolar ankle fracture. In the pre-op area, patient was noted to have a potassium of 2.7. Per anesthesia, her surgery was canceled and the patient was admitted under the care of Dr. Villegas. Patient was made NPO at midnight for possible surgical intervention today if medically optimized. Patient is examined bedside this morning. Pain in the right ankle is well- controlled. Potassium has been replaced per IM and repeat level is 3.9 this morning. Patient denies chest pain, shortness of breath. Vital signs stable. Past Medical History Past Medical History: Cancer, GERD/Reflux, GI Bleed, Hypertension, Musculoskeletal Disorder Additional Past Medical History / Comment(s): Colon cancer 2015/right colectomy- had surg. & chemo, CVA, COPD. Seizure, fx. R ankle, sciatica, chronic atrial flutter. History of Any Multi-Drug Resistant Organisms: None Reported Past Surgical History: Bowel Resection, Cholecystectomy, Orthopedic Surgery, Tonsillectomy Additional Past Surgical History / Comment(s): right wrist surgery post fracture, robotic colectomy Past Anesthesia/Blood Transfusion Reactions: No Reported Reaction Past Psychological History: Anxiety Smoking Status: Former smoker Past Alcohol Use History: Occasional Additional Past Alcohol Use History / Comment(s): Quit smoking Jun 2016, smoked 45 yrs, <1PPD. Past Drug Use History: None Reported - Past Family History Mother Family Medical History: Cancer Additional Family Medical History / Comment(s): Bladder cancer. Sister(s) Family Medical History: Cancer Additional Family Medical History / Comment(s): Colon cancer. Medications and Allergies Home Medications Medication Instructions Recorded Confirmed Type Fluticasone/Umeclidin/Vilanter 1 puff INHALATION RT-DAILY 03/04/21 10/20/21 History [Trelegy Ellipta 100-62.5-25] Melatonin 10 mg PO HS 03/04/21 10/20/21 History PARoxetine HCL 40 mg PO DAILY 03/04/21 10/20/21 History Vits A,C,E/Lutein/Minerals 1 tab PO DAILY 03/04/21 10/20/21 History [Ocuvite with Lutein Tablet] Aspirin 81 mg PO DAILY 03/06/21 10/20/21 Rx Atorvastatin [Lipitor] 40 mg PO HS #30 tablet 03/06/21 10/20/21 Rx Apixaban [Eliquis] 5 mg PO BID 09/27/21 10/20/21 History buPROPion HCL [Wellbutrin XL] 300 mg PO DAILY 09/27/21 10/20/21 History ALPRAZolam [Xanax] 0.5 mg PO BID PRN #6 tab 10/08/21 10/20/21 Rx Acetaminophen Tab [Tylenol] 650 mg PO Q6HR PRN tab 10/08/21 10/20/21 Rx Diphenox-Atrop 2.5-0.025 mg 2 tab PO BID PRN #12 tab 10/08/21 10/20/21 Rx [Lomotil] Furosemide [Lasix] 40 mg PO DAILY #1 tablet 10/08/21 10/20/21 Rx Gabapentin 300 mg PO HS #3 cap 10/08/21 10/20/21 Rx Ipratropium-Albuterol Nebulize 3 ml INHALATION RT-TID ml 10/08/21 10/20/21 Rx [Duoneb 0.5 mg-3 mg/3 ml Soln] Metoprolol Tartrate [Lopressor] 12.5 mg PO BID #1 tablet 10/08/21 10/20/21 Rx Pilocarpine [Salagen] 5 mg PO TID tab 10/08/21 10/20/21 Rx Oxybutynin Chloride [Oxybutynin 10 mg PO DAILY 10/20/21 10/20/21 History Chloride ER] Potassium Chloride ER [K-Dur 10] 10 meq PO DAILY 10/20/21 10/20/21 History Allergies Allergy/AdvReac Type Severity Reaction Status Date / Time benazepril Allergy Anaphylaxis Verified 10/20/21 14:50 Penicillins Allergy Face Verified 10/20/21 14:50 swelling sertraline [From Zoloft] Allergy Face Verified 10/20/21 14:50 swelling Sulfa (Sulfonamide Allergy Face Verified 10/20/21 14:50 Antibiotics) swelling Physical Examination On examination, patient is lying in bed in no apparent distress. On inspection of the right ankle, there is a clean, dry, intact bulky Purcell splint placed. The visible portion of the toes are well perfused with brisk capillary refill. Patient is able to wiggle toes appropriate. Results - Labs Labs: Abnormal Lab Results - Last 24 Hours (Table) 10/20/21 10/21/21 Range/Units 15:16 06:30 Potassium 2.7 L* (3.5-5.1) mmol/L Chloride 110 H (98-107) mmol/L Carbon Dioxide 20 L (22-30) mmol/L BUN 28 H (7-17) mg/dL Creatinine 1.29 H (0.52-1.04) mg/dL Glucose 143 H (74-99) mg/dL Result Diagrams: 10/21/21 06:30 Assessment and Plan Assessment: Right bimalleolar ankle fracture Plan: - We will plan for surgery this afternoon, if cleared from a medical standpoint. - Keep bulky Purcell splint in place. Strict non-weight bearing right lower extremity. - NPO diet.
[2021-10-21] MEDS ORDERED: IV FLUID CONTINUATION 1,000 ML IV ONE (16:00)
[2021-10-21] MEDS ORDERED: HYDROmorphone 0.5 MG/0.5 ML SYRINGE IVP PRN (16:02)
[2021-10-21] MEDS ORDERED: DEXAMETHASONE SOD PHOSPHATE 4 MG/ML 1 ML VIAL IV ONE (16:02)
[2021-10-21] MEDS ORDERED: ONDANSETRON 4 MG/2 ML VIAL IVP ONE (16:02)
[2021-10-21] MEDS: SODIUM CHLORIDE 0.9% 1,000 ML IV SCH (16:42)
[2021-10-21] MEDS ORDERED: MIDAZOLAM 2 MG/2 ML VIAL IVP ONE (16:50)
[2021-10-21] MEDS ORDERED: ROPIVACAINE 5 MG/ML 30 ML VIAL ONE (17:11)
[2021-10-21] MEDS ORDERED: SODIUM CHLORIDE 0.9% 100 ML with ceFAZolin 2,000 MG IV ONE ×2 (17:11)
[2021-10-21] MEDS ORDERED: DEXAMETHASONE SOD PHOSPHATE 4 MG/ML 1 ML VIAL ONE (17:11)
[2021-10-21] MEDS ORDERED: ePHEDrine 50 MG/ML 1 ML VIAL ONE (17:11)
--- NOTE | 2021-10-21 17:15 | P.ANPRN ---
Procedure Note - Anesthesia - Nerve Block Performed Right Adductor Canal Single Time Out Performed: Yes Date of Procedure: 10/21/21 Procedure Start Time: 16:50 Procedure Stop Time: 17:00 Location of Patient: PreOp Indication: Acute Post-Operative Pain, Requested by Surgeon Sedation Type: Sedate with meaningful contact maintained Preparation: Sterile Prep, Sterile Dressing Position: Supine Catheter: None Needle Types: Facet Needle Gauge: 21 Ultrasound used to visualize needle placement: Yes Ultrasound used to observe medication spread: Yes Injectate: 0.5% Ropivacaine (see comment for volume) (10 ml + decadron 2 mg) Blood Aspirated: No Pain Paresthesia on Injection Noted: No Resistance on Injection: Normal Image Stored and Saved: Yes Events: Uneventful and Well Tolerated Right Popliteal Single Date of Procedure: 10/21/21 Procedure Start Time: 16:40 Procedure Stop Time: 16:49 Location of Patient: PreOp Indication: Acute Post-Operative Pain, Requested by Surgeon Sedation Type: Sedate with meaningful contact maintained Preparation: Sterile Prep, Sterile Dressing Position: Supine Catheter: None Needle Types: Facet Needle Gauge: 21 Ultrasound used to visualize needle placement: Yes Ultrasound used to observe medication spread: Yes Injectate: 0.5% Ropivacaine (see comment for volume) (20 ml + decadron 2 mg) Blood Aspirated: No Pain Paresthesia on Injection Noted: No Resistance on Injection: Normal Image Stored and Saved: Yes Events: Uneventful and Well Tolerated
[2021-10-21] MEDS ORDERED: SENNOSIDES-DOCUSATE SODIUM 1 EACH TAB PO PRN (18:48)
[2021-10-21] MEDS ORDERED: HYDROcodone/APAP 5-325MG 1 EACH TAB PO PRN ×2 (18:48)
[2021-10-21] MEDS ORDERED: ONDANSETRON 4 MG/2 ML VIAL IVP PRN (18:48)
--- NOTE | 2021-10-21 18:58 | P.OP ---
Date of Procedure: 10/21/21 Preoperative Diagnosis: 1. Coronary artery disease 2. Colon cancer 3. COPD 4. Stroke 5. Atrial fibrillation 6. Right trimalleolar ankle fracture dislocation Postoperative Diagnosis: Same Procedure(s) Performed: 1. Open reduction internal fixation of right medial lateral malleolus nonoperative management posterior malleolus 2. Application of short-leg splint by physician, right ankle Anesthesia: MARILNY Surgeon: Lino John Seat Mender #1: Kelly Frye Estimated Blood Loss (ml): 25 Pathology: none sent Condition: stable Disposition: PACU Indications for Procedure: The patient is a very pleasant 71-year-old female with multiple medical problems who sustained a right trimalleolar ankle fracture about a month ago. She was seen in emergency department and found to have a dislocated ankle. Since she was nothing by mouth she was taken to the operating room and an attempt was made to fix her ankle. Prior to induction of anesthesia she went into asystole requiring CPR. She was transferred to the ICU and was in the hospital for over a week. She was worked up by both cardiology and internal medicine. Her workup took several weeks. She was seen in the office and I discussed further treatment including nonoperative treatment versus surgery. Due to the patient's relatively active lifestyle and ambulatory status prior to her injury despite her multiple medical problems I recommended open reduction and internal fixation. The patient and her family understand that she is at high risk due to her multiple medical issues. We discussed the potential risks and competitions of surgery including but certainly not limited to risks from anesthesia, superficial infection, deep infection, delayed wound healing, nonunion, malunion, posttraumatic arthritis, hardware failure, displacement of ankle mortise, DVT, PE, acute coronary event, possibly loss of life or limb. The patient voiced understanding these potential complications and also gouges that other less common complications are possible. She provided her verbal and wri tten consent to go forward with surgery. Description of Procedure: The patient was identified preoperative holding and the correct right ankle was marked with my initials. I reviewed the consent form with the patient and all of her questions were answered. The patient was then brought back to the operating room by anesthesia. She was given a spinal anesthetic and a block. Preoperative antibiotics were given. A tourniquet was applied the proximal aspect of the right leg. All bony prominences were well-padded. The right leg was then prepped and draped in the standard sterile fashion. Prior to inserting surgery timeout was performed identifying the correct patient, operative extremity, and procedure. Prior to starting surgery fluoroscopy was brought in. On the mortise view the talus was subluxed laterally. I had difficulty reducing the ankle mortise which was not surprising giving the subacute nature of her fracture. The patient's leg was then elevated exsanguinated with an Esmarch bandage and the tourniquet was inflated to 300 mmHg. I began by making an incision over the lateral malleolus. Dissection was carried down carefully to the subcutaneous tissue. The fascia over the peroneal muscles and the periosteum distally was incised longitudinally in line with the skin incision. On inspection the lateral malleolus fracture was displaced and there was a large amount of early callus formation. The callus formation was gently taken down to free up the fracture. Attention was then turned to the medial malleolus. An incision was made directly over the medial malleolus. The saphenous vein was identified and carefully retracted anteriorly. The medial malleolus fracture fragment was significantly displaced and there was a large amount of early callus that had to be taken down. Once both the medial and lateral malleolus were debrided I was able to reduce the talus into the ankle mortise. The patient's bone quality was found to be extremely poor. Due to the patient's poor bone quality I was unable to place a lag screw for fear fragmentation. A precontoured distal fibular plate was contoured over the lateral malleolus. A nonlocking 3.5 mm screws placed just proximal to the fracture to bring the plate down to bone. I then proceeded to place 3 tetra cortical syndesmotic screws for added fixation. A nonlocking 3.5 malleolar screws placed distally bringing the plate down to bone and then I placed an additional 3 locking screws. Attention was then turned to the medial malleolus. A [id number] reduction clamp was used to reduce the medial malleolus fragment. A 70 mm 3.5 mm screw was placed. Final fluoroscopic images were taken. The ankle mortise appeared to be reduced on all views. The wound was then thoroughly irrigated and closed in layers. Tourniquet was let down. A bulky Purcell splint was then placed with the ankle in neutral. The patient was then taken off the operating room table, transferred to a gurney, and brought to recovery without the procedure well. Kelly BLAND was required as a skilled clerical assistant due the complexity of the surgery. Plan: The patient is to be strictly nonweightbearing on her right leg. She can resume anticoagulation per internal medicine and cardiology. She will need follow-up in the office in 2 weeks for splint removal and nonweightbearing x- rays of the ankle. She will likely need 10-12 weeks of nonweightbearing in a cast.
--- NOTE | 2021-10-21 19:28 | P.PN ---
Progress Note - Text Progress Note Date: 10/21/21 Chief Complaint: Severe hypokalemia History of presenting complaint. 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 Chronic stable medical conditions include GERD, hypertension, colon cancer, seizure, sciatica, COPD. February 2021 - right brainstem thalamic stroke. Atrial flutter-fibrillation on eliquis. Chronic dry mouth-on Salagen. Was discharged on 2 L of nasal cannula. In the splint of the right leg. Patient was discharged to [facility] Patient was brought in today for surgery and in the preoperative labs for a low potassium of 2.7. Patient does feel weak and tired. Admitted for the same. No chest pain or palpitation. IV potassium was ordered also by mouth potassium was ordered. Some pain at the right foot. October 21: Patient was seen this morning before surgery. Potassium corrected. Heart rate of the lower side. Lopressor hold. Discussed with patient. Later short leg splint was placed. Active Medications Acetaminophen (Acetaminophen Tab 325 Mg Tab) 650 mg PO Q6HR PRN PRN Reason: Mild Pain or Fever > 100.5 Hydrocodone Bitart/Acetaminophen (Hydrocodone/Apap 5-325mg 1 Each Tab) 1 each PO Q6HR PRN PRN Reason: Pain Scale 1 to 5 Hydrocodone Bitart/Acetaminophen (Hydrocodone/Apap 5-325mg 1 Each Tab) 2 each PO Q6HR PRN PRN Reason: Pain Scale 6 to 10 Albuterol/Ipratropium (Ipratropium-Albuterol 3 Ml Neb) 3 ml INHALATION RT-TID [facility] Last Admin: 10/21/21 11:16 Dose: 3 ml Documented by: Alprazolam (Alprazolam 0.5 Mg Tab) 0.5 mg PO BID PRN PRN Reason: Anxiety Atorvastatin Calcium (Atorvastatin 40 Mg Tab) 40 mg PO HS [facility] Last Admin: 10/20/21 20:07 Dose: 40 mg Documented by: Budesonide/Formoterol Fumarate (Symbicort 80-4.5 Mcg Inhaler) 2 puff INHALATION RT-BID [facility] Last Admin: 10/21/21 07:30 Dose: Not Given Documented by: Bupropion HCl (Bupropion Xl 300 Mg Tab.Er.24h) 300 mg PO DAILY [facility] Last Admin: 10/21/21 08:12 Dose: 300 mg Documented by: Calcium Carbonate/Glycine (Calcium Carbonate 500 Mg Chewable) 1,000 mg PO Q4HR PRN PRN Reason: Dyspepsia Gabapentin (Gabapentin 300 Mg Cap) 300 mg PO [facility] Last Admin: 10/20/21 20:07 Dose: 300 mg Documented by: Lactated Ringer's (Lactated Ringers) 1,000 mls @ 20 mls/hr IV .Q24H [facility] Stop: 11/19/21 05:57 Last Admin: 10/21/21 06:15 Dose: Not Given Documented by: Sodium Chloride (Saline 0.9%) 1,000 mls @ 75 mls/hr IV .[id number] [facility] Last Admin: 10/21/21 16:42 Dose: Not Given Documented by: Lactated Ringer's (Lactated Ringers) 1,000 mls @ 20 mls/hr IV .Q24H [facility] Cefazolin Sodium 2 gm/ Sodium (Chloride) 50 mls @ 100 mls/hr IVPB Q8HR [facility] Stop: 10/22/21 08:29 Lactulose (Lactulose 20 Gm/30 Ml Cup) 20 gm PO DAILY PRN PRN Reason: Constipation Lidocaine HCl (Lidocaine 1% (10mg/Ml) For Iv Start) 0.1 ml INTRADERMA PER PROTOCOL PRN PRN Reason: IV Start Stop: 11/19/21 05:57 Melatonin (Melatonin 5 Mg Tablet) 10 mg PO [facility] Last Admin: 10/20/21 20:07 Dose: 10 mg Documented by: Metoprolol Tartrate (Metoprolol Tartrate 12.5 Mg Tab) 12.5 mg PO BID [facility] Last Admin: 10/21/21 09:00 Dose: Not Given Documented by: Naloxone HCl (Naloxone 0.4 Mg/Ml 1 Ml Vial) 0.2 mg IV Q2M PRN PRN Reason: Opioid Reversal Ondansetron HCl (Ondansetron 4 Mg/2 Ml Vial) 4 mg IVP DAILY PRN PRN Reason: Nausea And Vomiting Oxybutynin Chloride (Oxybutynin 10 Mg Tab.Er.24) 10 mg PO DAILY [facility] Last Admin: 10/21/21 08:12 Dose: 10 mg Documented by: Paroxetine HCl (Paroxetine 20 Mg Tab) 40 mg PO DAILY [facility] Last Admin: 10/21/21 08:12 Dose: 40 mg Documented by: Pilocarpine HCl (Pilocarpine 5 Mg Tab) 5 mg PO TID [facility] Last Admin: 10/21/21 16:42 Dose: Not Given Documented by: Potassium Chloride (Potassium Chloride Er 10 Meq Tab.Er.Prt) 10 meq PO DAILY [facility] Last Admin: 10/21/21 08:12 Dose: 10 meq Documented by: Senna/Docusate Sodium (Sennosides-Docusate Sodium 1 Each Tab) 2 each PO HS PRN PRN Reason: Constipation Past medical history to include: Colon cancer treated with chemotherapy and surgery in 2015, sciatica, essential hypertension, GERD, COPD. Acute right brainstem thalamic stroke in February 2021, chronic dry mouth Social history: . Smoked less than a pack a day for 45 years stopped in 2016. Alcohol occasionally. Family history: Bladder cancer Physical examination: VITAL SIGNS: 97.1, 46, 16, 116/58, 93% room air GENERAL: reclining in bed, awake. EYES: Pupils equal. Conjunctiva normal. HEENT: External appearance of nose and ears normal, oral cavity dry mucous membranes. NECK: JVD not raised; masses not palpable. HEART: First and second heart sounds are normal; no edema. LUNGS: Respiratory rate normal; increased breath sound. ABDOMEN: Soft, nontender, liver spleen not palpable, no masses palpable. PSYCH: Alert and oriented x3; mood and affect normall. MUSCULOSKELETAL:No Clubbing/cyanosis;muscles-grossly intact. Evidence of OA. Right ankle in a splint NEUROLOGICAL: Cranial nerves grossly intact; no facial asymmetry, power and sensation grossly intact. INVESTIGATIONS, reviewed in the clinical context: October 21: Potassium 3.9 BUN 28 creatinine 1.29 Potassium 2.7. Magnesium 1.8 2-D echocardiogram: Severe concentric LVH. EF 55-60%. Possible LVOT obstruction. Moderate MR. Previous labs: October 15: Hemoglobin 10.8 platelets 431 sodium 146 creatinine 1.6 Assessment and plan: -Severe hypokalemia.: Corrected -Acute right ankle trimalleolar fracture secondary to fall on September 27. Close reduction and long leg splint. Short splint applied by Dr. John today -COPD in a X smoker Symbicort 80/4.52 puffs twice a day -Moderate mitral regurgitation Follow clinically -Chronic xerostomia Salagen -Primary osteoarthritis Pain medications as needed -Hypertensive heart disease -Chronic urinary stress incontinence Detrol LA 4 mg daily -Anxiety not otherwise specified Xanax 0.5 mg twice a day when necessary, Paxil 40 mg daily -Essential hypertension Monitor blood pressure -Persistent atrial flutter fibrillation: Rate controlled eliquis-currently on hold for surgery. -Chronic kidney injury is 3 likely nephrosclerosis Baseline creatinine 1.5 -Chronic congestive heart failure from diastolic dysfunction EF 55-60%: Follow fluid status -Chronic hypoxic respiratory failure from COPD Currently on 2 L nasal cannula -Full code Bradycardia from beta link. Hold Lopressor. Hold Lasix. Gentle hydration. Start eliquis tomorrow
[2021-10-21] MEDS: GABAPENTIN 300 MG CAP PO SCH (20:43)
[2021-10-21] MEDS: ATORVASTATIN 40 MG TAB PO SCH (20:44)
[2021-10-21] MEDS: MELATONIN 5 MG TABLET PO SCH (20:44)
[2021-10-22] MEDS: SODIUM CHLORIDE 0.9% 1,000 ML IV SCH ×2 (02:40→17:09)
[2021-10-22] MEDS: LACTATED RINGERS 1,000 ML IV SCH ×2 (05:29→17:07)
--- NOTE | 2021-10-22 06:03 | FL ---
EXAMINATION TYPE: FL guidance operating room, XR ankle complete RT DATE OF EXAM: 10/21/2021 CLINICAL HISTORY: Ankle fracture. TECHNIQUE: Fluoroscopy. Interoperative 3 views right ankle. COMPARISON: Right ankle x-ray September 27, 2021. FINDINGS: Fluoroscopic guidance was provided during open reduction internal fixation procedure perfo rmed by Dr. John. A total of 5 seconds of fluoroscopic time was utilized during the procedure an d two spot intraoperative images are acquired. Intraoperative images obtained show placement of a lar ge fixating screw at level of medial malleolus missing is uncertain if passing through the fracture f ragment along with lateral fixating plate through fracture of the lateral malleolus. Improved alignme nt is seen after reduction and fixation. IMPRESSION: As Above.
[2021-10-22] MEDS: SYMBICORT 80-4.5 MCG INHALER INHALATION SCH ×2 (08:43→19:17)
[2021-10-22] MEDS: IPRATROPIUM-ALBUTEROL 3 ML NEB INHALATION SCH ×3 (08:43→19:17)
[2021-10-22] MEDS: PILOCARPINE 5 MG TAB PO SCH ×3 (09:26→20:47)
[2021-10-22] MEDS: PARoxetine 20 MG TAB PO SCH (09:26)
[2021-10-22] MEDS: buPROPion XL 300 MG TAB.ER.24H PO SCH (09:26)
[2021-10-22] MEDS: POTASSIUM CHLORIDE ER 10 MEQ TAB.ER.PRT PO SCH (09:26)
[2021-10-22] MEDS: OXYBUTYNIN 10 MG TAB.ER.24 PO SCH (09:26)
[2021-10-22] MEDS: APIXABAN 5 MG TAB PO SCH ×2 (09:27→20:47)
[2021-10-22 10:12] LABS: Basophils # (A) 0.01 X 10*3/uL (0.00-0.10); Basophils % (A) 0.1 %; Eosinophils # (A) 0 X 10*3/uL (0.04-0.35); Eosinophils % (A) 0 %; HCT 33.9 % (37.2-46.3); HGB 10.1 g/dL (12.0-15.0); Immature Grans, Automated 0.7 %; Lymphocytes # (A) 0.71 X 10*3/uL (0.90-5.00); Lymphocytes % (A) 5.8 %; MCH 29.2 pg (27.0-32.0); MCHC 29.8 g/dL (32.0-37.0); Mean Platelet Volume 9.8 fL (9.5-12.2); Monocytes # (A) 0.88 X 10*3/uL (0.20-1.00); Monocytes % (A) 7.2 %; NRBC Per 100 WBC 0 /100 WBCS (0.0-0.0); Neutrophils # (A) 10.56 X 10*3/uL (1.80-7.70); Neutrophils % (A) 86.2 %; Platelet Count 354 X 10*3/uL (140-440); RBC 3.46 X 10*6/uL (4.10-5.20); RDW 15.7 % (11.5-14.5); WBC 12.24 X 10*3/uL (4.50-10.00)
--- NOTE | 2021-10-22 11:48 | P.PN ---
Subjective Progress Note Date: 10/22/21 This patient is a 71- year old female who is status-post open reduction internal fixation of right medial lateral malleolus on 10/21/21. Today is post-operative day #1. Patient is seen and examined bedside. Patient states the pain in her ankle is well-controlled. She has not yet been up with physical therapy. No new concerns or complaints this morning. Vital signs stable. Objective - Vital Signs Vital signs: Vital Signs Temp 98.2 F 10/22/21 07:42 Pulse 50 L 10/22/21 08:51 Resp 16 10/22/21 08:00 BP 116/57 10/22/21 07:42 Pulse Ox 96 10/22/21 07:42 Intake & Output 10/21/21 10/22/21 10/22/21 18:59 06:59 18:59 Intake Total 800 Output Total 25 Balance 775 Intake: IV 800 Output: Estimated Blood Loss 25 Other: Voiding Method Bedpan Bedpan # Voids 1 1 # Bowel Movements 1 1 - Exam On examination, the patient is lying in bed in no apparent distress. She is alert and oriented 3. On inspection of the right ankle, there is a clean, dry, intact bulky Purcell splint in place. The visible portion of the toes are warm a nd well-perfused with brisk capillary refill. Patient is able to wiggle toes appropriately. No pain with passive range of motion of the toes. - Labs CBC & Chem 7: 10/22/21 05:57 10/21/21 06:30 Labs: Abnormal Lab Results - Last 24 Hours (Table) 10/22/21 Range/Units 05:57 WBC 12.24 H (4.50-10.00) X 10*3/uL RBC 3.46 L (4.10-5.20) X 10*6/uL Hgb 10.1 L (12.0-15.0) g/dL Hct 33.9 L (37.2-46.3) % MCV 98.0 H (80.0-97.0) fL MCHC 29.8 L (32.0-37.0) g/dL RDW 15.7 H (11.5-14.5) % Immature Gran # 0.08 H (0.00-0.04) X 10*3/uL Neutrophils # 10.56 H (1.80-7.70) X 10*3/uL Lymphocytes # 0.71 L (0.90-5.00) X 10*3/uL Eosinophils # 0 L (0.04-0.35) X 10*3/uL Assessment and Plan Assessment: Status-post open reduction internal fixation of right medial lateral malleolus on 10/21/21. Post-operative day #1. Plan: - Strict non-weight bearing operative extremity. - Physical therapy for gait and balance training. - Keep splint clean, dry, intact. Do not remove splint. - Pain management as needed. - Resume Eliquis for DVT prophylaxis. - Keep operative extremity elevated for swelling control. - We will follow patient closely.
--- NOTE | 2021-10-22 15:02 | P.DS ---
Providers Date of admission: 10/20/21 16:33 Expected date of discharge: 10/22/21 Attending physician: Juan Villegas Consults: 10/20/21 16:47 Consult Physician Routine Consulting Provider: Lino John Consult Reason/Comments: OR case cancelled 10/20 for abnormal labs, Right ankle Fx Do you want consulting provider notified?: Already Contacted Primary care physician: [facility] Course: Chief Complaint: Severe hypokalemia History of presenting complaint. 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 Chronic stable medical conditions include GERD, hypertension, colon cancer, seizure, sciatica, COPD. February 2021 - right brainstem thalamic stroke. Atrial flutter-fibrillation on eliquis. Chronic dry mouth-on Salagen. Was discharged on 2 L of nasal cannula. In the splint of the right leg. Patient was discharged to [facility] Patient was brought in today for surgery and in the preoperative labs for a low potassium of 2.7. Patient does feel weak and tired. Admitted for the same. No chest pain or palpitation. IV potassium was ordered also by mouth potassium was ordered. Some pain at the right foot. October 21: Patient was seen this morning before surgery. Potassium corrected. Heart rate of the lower side. Lopressor hold. Discussed with patient. Later short leg splint was placed. October 22: Patient cleared by orthopedics to return to rehab. Care was discussed with the patient's sister the bedside. Questions answered. Eliquis is being resumed. Pain control. Metamucil added. Because of bradycardia Lopressor discontinued Discussion and discharge planning more than 35 minutes Past medical history to include: Colon cancer treated with chemotherapy and surgery in 2016, sciatica, essential hypertension, GERD, COPD. Acute right brainstem thalamic stroke in February 2021, chronic dry mouth Social history: . Smoked less than a pack a day for 45 years stopped in 2017. Alcohol occasionally. Family history: Bladder cancer Physical examination: VITAL SIGNS: 98.1, 60, 16, 140 01/14/1954, 92% room air GENERAL: reclining in bed, awake. EYES: Pupils equal. Conjunctiva normal. HEENT: External appearance of nose and ears normal, oral cavity dry mucous membranes. NECK: JVD not raised; masses not palpable. HEART: First and second heart sounds are normal; no edema. LUNGS: Respiratory rate normal; increased breath sound. ABDOMEN: Soft, nontender, liver spleen not palpable, no masses palpable. PSYCH: Alert and oriented x3; mood and affect normall. MUSCULOSKELETAL:No Clubbing/cyanosis;muscles-grossly intact. Evidence of OA. Right ankle in a splint NEUROLOGICAL: Cranial nerves grossly intact; no facial asymmetry, power and sensation grossly intact. INVESTIGATIONS, reviewed in the clinical context: October 14: White count 12.2 hemoglobin 10.1 October 21: Potassium 3.9 BUN 28 creatinine 1.29 Potassium 2.7. Magnesium 1.8 2-D echocardiogram: Severe concentric LVH. EF 55-60%. Possible LVOT obstruction. Moderate MR. Previous labs: October 15: Hemoglobin 10.8 platelets 431 sodium 146 creatinine 1.6 Assessment and plan: -Severe hypokalemia.: Corrected -Acute right ankle trimalleolar fracture secondary to fall on September 27. Close reduction and long leg splint. Short splint applied by Dr. John on October 21 -COPD in a X smoker Symbicort 80/4.52 puffs twice a day -Moderate mitral regurgitation Follow clinically -Chronic xerostomia Salagen -Primary osteoarthritis Pain medications as needed -Hypertensive heart disease -Chronic urinary stress incontinence Detrol LA 4 mg daily -Anxiety not otherwise specified Xanax 0.5 mg twice a day when necessary, Paxil 40 mg daily -Essential hypertension Monitor blood pressure -Persistent atrial flutter fibrillation: Rate controlled eliquis-currently on hold for surgery. -Chronic kidney injury is 3 likely nephrosclerosis Baseline creatinine 1.5 -Chronic congestive heart failure from diastolic dysfunction EF 55-60%: Follow fluid status -Chronic hypoxic respiratory failure from COPD Currently on 2 L nasal cannula -Full code [facility] Plan - Discharge Summary Discharge Rx Participant: No New Discharge Prescriptions: New Apixaban [Eliquis] 5 mg PO BID tab Psyllium Husk 100% [Metamucil Packet] 6 gm PO BID #1 packet Continue PARoxetine HCL 40 mg PO DAILY Melatonin 10 mg PO HS Aspirin 81 mg PO DAILY Atorvastatin [Lipitor] 40 mg PO HS #30 tablet Ipratropium-Albuterol Nebulize [Duoneb 0.5 mg-3 mg/3 ml Soln] 3 ml INHALATION RT-TID ml Acetaminophen Tab [Tylenol] 650 mg PO Q6HR PRN tab PRN Reason: Fever And/ Or Pain Oxybutynin Chloride [Oxybutynin Chloride ER] 10 mg PO DAILY Vits A,C,E/Lutein/Minerals [Ocuvite with Lutein Tablet] 1 tab PO DAILY Fluticasone/Umeclidin/Vilanter [Trelegy Ellipta 100-62.5-25] 1 puff INHALATION RT-DAILY Apixaban [Eliquis] 5 mg PO BID buPROPion HCL [Wellbutrin XL] 300 mg PO DAILY Pilocarpine [Salagen] 5 mg PO TID tab Gabapentin 300 mg PO HS #3 cap Diphenox-Atrop 2.5-0.025 mg [Lomotil] 2 tab PO BID PRN #6 tab PRN Reason: Diarrhea ALPRAZolam [Xanax] 0.5 mg PO BID PRN #6 tab PRN Reason: Anxiety Discontinued Metoprolol Tartrate [Lopressor] 12.5 mg PO BID #1 tablet Furosemide [Lasix] 40 mg PO DAILY #1 tablet Potassium Chloride ER [K-Dur 10] 10 meq PO DAILY Discharge Medication List Fluticasone/Umeclidin/Vilanter [Trelegy Ellipta 100-62.5-25] 1 puff INHALATION RT-DAILY 03/04/21 [History] Melatonin 10 mg PO HS 03/04/21 [History] PARoxetine HCL 40 mg PO DAILY 03/04/21 [History] Vits A,C,E/Lutein/Minerals [Ocuvite with Lutein Tablet] 1 tab PO DAILY 03/04/21 [History] Aspirin 81 mg PO DAILY 03/06/21 [Rx] Atorvastatin [Lipitor] 40 mg PO HS #30 tablet 03/06/21 [Rx] Apixaban [Eliquis] 5 mg PO BID 09/27/21 [History] buPROPion HCL [Wellbutrin XL] 300 mg PO DAILY 09/27/21 [History] Acetaminophen Tab [Tylenol] 650 mg PO Q6HR PRN tab 10/08/21 [Rx] Ipratropium-Albuterol Nebulize [Duoneb 0.5 mg-3 mg/3 ml Soln] 3 ml INHALATION RT-TID ml 10/08/21 [Rx] Pilocarpine [Salagen] 5 mg PO TID tab 10/08/21 [Rx] Oxybutynin Chloride [Oxybutynin Chloride ER] 10 mg PO DAILY 10/20/21 [History] ALPRAZolam [Xanax] 0.5 mg PO BID PRN #6 tab 10/22/21 [Rx] Apixaban [Eliquis] 5 mg PO BID tab 10/22/21 [Rx] Diphenox-Atrop 2.5-0.025 mg [Lomotil] 2 tab PO BID PRN #6 tab 10/22/21 [Rx] Gabapentin 300 mg PO HS #3 cap 10/22/21 [Rx] Psyllium Husk 100% [Metamucil Packet] 6 gm PO BID #1 packet 10/22/21 [Rx] Follow up Appointment(s)/Referral(s): Davis Ty DO [Primary Care Provider] - 1-2 Days Lino John MD [Medical Doctor] - 2 Weeks Activity/Diet/Wound Care/Special Instructions: Strict non-weight bearing operative leg. Keep bulky Purcell splint clean, dry, intact. Do not remove splint. Keep operative ankle elevated for swelling and pain control. Resume Eliquis as instructed by internal medicine for DVT prophylaxis. Follow-up in the office in two weeks with Dr. John. Call the office with any questions or concerns,
[2021-10-22] MEDS: MELATONIN 5 MG TABLET PO SCH (20:47)
[2021-10-22] MEDS: ATORVASTATIN 40 MG TAB PO SCH (20:47)
[2021-10-22] MEDS: GABAPENTIN 300 MG CAP PO SCH (20:47)
[2021-10-23] MEDS: SODIUM CHLORIDE 0.9% 1,000 ML IV SCH (05:36)
[2021-10-23] MEDS: LACTATED RINGERS 1,000 ML IV SCH (05:37)
[2021-10-23] MEDS: IPRATROPIUM-ALBUTEROL 3 ML NEB INHALATION SCH ×2 (07:36→11:30)
[2021-10-23] MEDS: SYMBICORT 80-4.5 MCG INHALER INHALATION SCH (07:36)
[2021-10-23] MEDS: APIXABAN 5 MG TAB PO SCH (08:46)
[2021-10-23] MEDS: POTASSIUM CHLORIDE ER 10 MEQ TAB.ER.PRT PO SCH (08:46)
[2021-10-23] MEDS: OXYBUTYNIN 10 MG TAB.ER.24 PO SCH (08:47)
[2021-10-23] MEDS: buPROPion XL 300 MG TAB.ER.24H PO SCH (08:47)
[2021-10-23] MEDS: PARoxetine 20 MG TAB PO SCH (08:47)
[2021-10-23] MEDS: PILOCARPINE 5 MG TAB PO SCH (08:47)
[2021-10-23 09:02] VITALS: BP 120/53; RESP 18; TEMP 98.4
[2021-10-23 11:52] VITALS: PULSE 65
--- NOTE | 2021-10-23 14:28 | P.PN ---
Progress Note - Text Progress Note Date: 10/22/21 Chief Complaint: Severe hypokalemia History of presenting complaint. 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 Chronic stable medical conditions include GERD, hypertension, colon cancer, seizure, sciatica, COPD. February 2021 - right brainstem thalamic stroke. Atrial flutter-fibrillation on eliquis. Chronic dry mouth-on Salagen. Was discharged on 2 L of nasal cannula. In the splint of the right leg. Patient was discharged to [facility] Patient was brought in today for surgery and in the preoperative labs for a low potassium of 2.7. Patient does feel weak and tired. Admitted for the same. No chest pain or palpitation. IV potassium was ordered also by mouth potassium was ordered. Some pain at the right foot. October 21: Patient was seen this morning before surgery. Potassium corrected. Heart rate of the lower side. Lopressor hold. Discussed with patient. Later short leg splint was placed. October 22: Patient cleared by orthopedics to return to rehab. Care was discussed with the patient's sister the bedside. Questions answered. Eliquis is being resumed. Pain control. Metamucil added. Because of bradycardia Lopressor discontinued Patient presented to go back to [facility]. Past medical history to include: Colon cancer treated with chemotherapy and surgery in 2015, sciatica, essential hypertension, GERD, COPD. Acute right brainstem thalamic stroke in February 2021, chronic dry mouth Social history: . Smoked less than a pack a day for 45 years stopped in 2016. Alcohol occasionally. Family history: Bladder cancer Physical examination: VITAL SIGNS: 98.1, 60, 16, 140 01/14/1954, 92% room air GENERAL: reclining in bed, awake. EYES: Pupils equal. Conjunctiva normal. HEENT: External appearance of nose and ears normal, oral cavity dry mucous membranes. NECK: JVD not raised; masses not palpable. HEART: First and second heart sounds are normal; no edema. LUNGS: Respiratory rate normal; increased breath sound. ABDOMEN: Soft, nontender, liver spleen not palpable, no masses palpable. PSYCH: Alert and oriented x3; mood and affect normall. MUSCULOSKELETAL:No Clubbing/cyanosis;muscles-grossly intact. Evidence of OA. Right ankle in a splint NEUROLOGICAL: Cranial nerves grossly intact; no facial asymmetry, power and sensation grossly intact. INVESTIGATIONS, reviewed in the clinical context: October 14: White count 12.2 hemoglobin 10.1 October 21: Potassium 3.9 BUN 28 creatinine 1.29 Potassium 2.7. Magnesium 1.8 2-D echocardiogram: Severe concentric LVH. EF 55-60%. Possible LVOT obstruction. Moderate MR. Previous labs: October 15: Hemoglobin 10.8 platelets 431 sodium 146 creatinine 1.6 Assessment and plan: -Severe hypokalemia.: Corrected -Acute right ankle trimalleolar fracture secondary to fall on September 27. Close reduction and long leg splint. Short splint applied by Dr. John on October 21 -COPD in a X smoker Symbicort 80/4.52 puffs twice a day -Moderate mitral regurgitation Follow clinically -Chronic xerostomia Salagen -Primary osteoarthritis Pain medications as needed -Hypertensive heart disease -Chronic urinary stress incontinence Detrol LA 4 mg daily -Anxiety not otherwise specified Xanax 0.5 mg twice a day when necessary, Paxil 40 mg daily -Essential hypertension Monitor blood pressure -Persistent atrial flutter fibrillation: Rate controlled eliquis-currently on hold for surgery. -Chronic kidney injury is 3 likely nephrosclerosis Baseline creatinine 1.5 -Chronic congestive heart failure from diastolic dysfunction EF 55-60%: Follow fluid status -Chronic hypoxic respiratory failure from COPD Currently on 2 L nasal cannula -Full code Continue current medications. Discussed with patient at length. And the sister at the bedside. Lopressor discontinued. Metamucil added. Total time spent about 40 minutes with over 25 minutes of discussion.
--- NOTE | 2021-10-23 14:31 | P.DS ---
Providers Date of admission: 10/20/21 16:33 Expected date of discharge: 10/23/21 Attending physician: Juan Villegas Consults: 10/20/21 16:47 Consult Physician Routine Consulting Provider: Lino John Consult Reason/Comments: OR case cancelled 10/20 for abnormal labs, Right ankle Fx Do you want consulting provider notified?: Already Contacted Primary care physician: [facility] Course: Chief Complaint: Severe hypokalemia History of presenting complaint. 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 Chronic stable medical conditions include GERD, hypertension, colon cancer, seizure, sciatica, COPD. February 2021 - right brainstem thalamic stroke. Atrial flutter-fibrillation on eliquis. Chronic dry mouth-on Salagen. Was discharged on 2 L of nasal cannula. In the splint of the right leg. Patient was discharged to [facility] [place] on Patient was brought in today for surgery and in the preoperative labs for a low potassium of 2.7. Patient does feel weak and tired. Admitted for the same. No chest pain or palpitation. IV potassium was ordered also by mouth potassium was ordered. Some pain at the right foot. October 21: Patient was seen this morning before surgery. Potassium corrected. Heart rate of the lower side. Lopressor hold. Discussed with patient. Later short leg splint was placed. October 22: Patient cleared by orthopedics to return to rehab. Care was discussed with the patient's sister the bedside. Questions answered. Eliquis is being resumed. Pain control. Metamucil added. Because of bradycardia Lopressor discontinued Patient presented to go back to [facility]. October 23: No new issues. Discussed with patient. Patient has been off Lopressor. Metamucil. Other medications to continue. Pain well controlled. Discharged to F today. Past medical history to include: Colon cancer treated with chemotherapy and surgery in 2016, sciatica, essential hypertension, GERD, COPD. Acute right brainstem thalamic stroke in February 2021, chronic dry mouth Social history: . Smoked less than a pack a day for 45 years stopped in 2016. Alcohol occasionally. Family history: Bladder cancer Physical examination: VITAL SIGNS: 98.4, 69, 18, 120/53, 91% on 3 L GENERAL: reclining in bed, awake. EYES: Pupils equal. Conjunctiva normal. HEENT: External appearance of nose and ears normal, oral cavity dry mucous membranes. NECK: JVD not raised; masses not palpable. HEART: First and second heart sounds are normal; no edema. LUNGS: Respiratory rate normal; increased breath sound. ABDOMEN: Soft, nontender, liver spleen not palpable, no masses palpable. PSYCH: Alert and oriented x3; mood and affect normall. MUSCULOSKELETAL:No Clubbing/cyanosis;muscles-grossly intact. Evidence of OA. Right ankle in a splint NEUROLOGICAL: Cranial nerves grossly intact; no facial asymmetry, power and sensation grossly intact. INVESTIGATIONS, reviewed in the clinical context: October 22: White count 12.2 hemoglobin 10.1 October 21: Potassium 3.9 BUN 28 creatinine 1.29 Potassium 2.7. Magnesium 1.8 2-D echocardiogram: Severe concentric LVH. EF 55-60%. Possible LVOT obstruction. Moderate MR. Previous labs: October 15: Hemoglobin 10.8 platelets 431 sodium 146 creatinine 1.6 Assessment and plan: -Severe hypokalemia.: Corrected -Acute right ankle trimalleolar fracture secondary to fall on September 27. Close reduction and long leg splint. Short splint applied by Dr. John on October 21 -COPD in a X smoker Symbicort 80/4.52 puffs twice a day -Moderate mitral regurgitation Follow clinically -Chronic xerostomia Salagen -Primary osteoarthritis Pain medications as needed -Hypertensive heart disease -Chronic urinary stress incontinence Detrol LA 4 mg daily -Anxiety not otherwise specified Xanax 0.5 mg twice a day when necessary, Paxil 40 mg daily -Essential hypertension Monitor blood pressure -Persistent atrial flutter fibrillation: Rate controlled eliquis-currently on hold for surgery. -Chronic kidney injury is 3 likely nephrosclerosis Baseline creatinine 1.5 -Chronic congestive heart failure from diastolic dysfunction EF 55-60%: Follow fluid status -Chronic hypoxic respiratory failure from COPD Currently on 2 L nasal cannula -Full code Disposition: Rehab at [facility] on Plan - Discharge Summary Discharge Rx Participant: No New Discharge Prescriptions: New Apixaban [Eliquis] 5 mg PO BID tab Psyllium Husk 100% [Metamucil Packet] 6 gm PO BID #1 packet Continue PARoxetine HCL 40 mg PO DAILY Melatonin 10 mg PO HS Aspirin 81 mg PO DAILY Atorvastatin [Lipitor] 40 mg PO HS #30 tablet Ipratropium-Albuterol Nebulize [Duoneb 0.5 mg-3 mg/3 ml Soln] 3 ml INHALATION RT-TID ml Acetaminophen Tab [Tylenol] 650 mg PO Q6HR PRN tab PRN Reason: Fever And/ Or Pain Oxybutynin Chloride [Oxybutynin Chloride ER] 10 mg PO DAILY Vits A,C,E/Lutein/Minerals [Ocuvite with Lutein Tablet] 1 tab PO DAILY Fluticasone/Umeclidin/Vilanter [Trelegy Ellipta 100-62.5-25] 1 puff INHALATION RT-DAILY Apixaban [Eliquis] 5 mg PO BID buPROPion HCL [Wellbutrin XL] 300 mg PO DAILY Pilocarpine [Salagen] 5 mg PO TID tab Gabapentin 300 mg PO HS #3 cap Diphenox-Atrop 2.5-0.025 mg [Lomotil] 2 tab PO BID PRN #6 tab PRN Reason: Diarrhea ALPRAZolam [Xanax] 0.5 mg PO BID PRN #6 tab PRN Reason: Anxiety Discontinued Metoprolol Tartrate [Lopressor] 12.5 mg PO BID #1 tablet Furosemide [Lasix] 40 mg PO DAILY #1 tablet Potassium Chloride ER [K-Dur 10] 10 meq PO DAILY Discharge Medication List Fluticasone/Umeclidin/Vilanter [Trelegy Ellipta 100-62.5-25] 1 puff INHALATION RT-DAILY 03/04/21 [History] Melatonin 10 mg PO HS 03/04/21 [History] PARoxetine HCL 40 mg PO DAILY 03/04/21 [History] Vits A,C,E/Lutein/Minerals [Ocuvite with Lutein Tablet] 1 tab PO DAILY 03/04/21 [History] Aspirin 81 mg PO DAILY 03/06/21 [Rx] Atorvastatin [Lipitor] 40 mg PO HS #30 tablet 03/06/21 [Rx] Apixaban [Eliquis] 5 mg PO BID 09/27/21 [History] buPROPion HCL [Wellbutrin XL] 300 mg PO DAILY 09/27/21 [History] Acetaminophen Tab [Tylenol] 650 mg PO Q6HR PRN tab 10/08/21 [Rx] Ipratropium-Albuterol Nebulize [Duoneb 0.5 mg-3 mg/3 ml Soln] 3 ml INHALATION RT-TID ml 10/08/21 [Rx] Pilocarpine [Salagen] 5 mg PO TID tab 10/08/21 [Rx] Oxybutynin Chloride [Oxybutynin Chloride ER] 10 mg PO DAILY 10/20/21 [History] ALPRAZolam [Xanax] 0.5 mg PO BID PRN #6 tab 10/22/21 [Rx] Apixaban [Eliquis] 5 mg PO BID tab 10/22/21 [Rx] Diphenox-Atrop 2.5-0.025 mg [Lomotil] 2 tab PO BID PRN #6 tab 10/22/21 [Rx] Gabapentin 300 mg PO HS #3 cap 10/22/21 [Rx] Psyllium Husk 100% [Metamucil Packet] 6 gm PO BID #1 packet 10/22/21 [Rx] Follow up Appointment(s)/Referral(s): Davis Ty DO [Primary Care Provider] - 1-2 Days Lino John MD [Medical Doctor] - 2 Weeks Activity/Diet/Wound Care/Special Instructions: Strict non-weight bearing operative leg. Keep bulky Purcell splint clean, dry, intact. Do not remove splint. Keep operative ankle elevated for swelling and pain control. Resume Eliquis as instructed by internal medicine for DVT prophylaxis. Follow-up in the office in two weeks with Dr. John. Call the office with any questions or concerns, Discharge Disposition: TRANSFER TO SNF/ECF
[2021-10-24] MEDS ORDERED: PSYLLIUM HUSK 100% 6 GM PACKET PO SCH (09:00)
== END 2021-10-23 14:09 ==
LOC: OR 14:03 → 6NMEDSUR 16:33 → OR 16:33 → 6NMEDSUR 16:34
PROVIDERS: ADMIT Hospitalist; ATTEND Hospitalist
DX: S82.841A Displaced bimalleolar fracture of right lower leg, initial encounter for closed fracture (principal); S82.851A Displaced trimalleolar fracture of right lower leg, initial encounter for closed fracture; W19.XXXA Unspecified fall, initial encounter; E87.6 Hypokalemia; E78.5 Hyperlipidemia, unspecified; J98.4 Other disorders of lung; K21.9 Gastro-esophageal reflux disease without esophagitis; M54.30 Sciatica, unspecified side; F32.A Depression, unspecified; J44.9 Chronic obstructive pulmonary disease, unspecified; I97.89 Other postprocedural complications and disorders of the circulatory system, not elsewhere classified; R56.9 Unspecified convulsions; I48.92 Unspecified atrial flutter; I48.91 Unspecified atrial fibrillation; I34.0 Nonrheumatic mitral (valve) insufficiency; M19.90 Unspecified osteoarthritis, unspecified site; N39.3 Stress incontinence (female) (male); I11.0 Hypertensive heart disease with heart failure; I50.22 Chronic systolic (congestive) heart failure; H91.90 Unspecified hearing loss, unspecified ear; Z85.038 Personal history of other malignant neoplasm of large intestine; R68.2 Dry mouth, unspecified; F41.9 Anxiety disorder, unspecified; Z86.73 Personal history of transient ischemic attack (TIA), and cerebral infarction without residual deficits; Z90.49 Acquired absence of other specified parts of digestive tract; N28.9 Disorder of kidney and ureter, unspecified; Z80.52 Family history of malignant neoplasm of bladder; Z97.3 Presence of spectacles and contact lenses; Z98.890 Other specified postprocedural states; Z87.891 Personal history of nicotine dependence; Z92.21 Personal history of antineoplastic chemotherapy; Z79.01 Long term (current) use of anticoagulants; Z79.82 Long term (current) use of aspirin; Z79.899 Other long term (current) drug therapy; Z88.0 Allergy status to penicillin; Z88.2 Allergy status to sulfonamides; Z88.8 Allergy status to other drugs, medicaments and biological substances
CPT/HCPCS: 96365; 94640 ×6; 94760 ×2; 97162; 97166; 64447; 64445; 76942; 80048; 83735; 84132; 85025; 73610; 27792; G0378 ×4; C1713; J2250 ×2; J1100 ×2; J0690 ×2; J3480; J2795

== ENCOUNTER → 2021-11-05 | Outpatient (CLI) | payer MEDICARE ==
--- NOTE | 2021-11-05 15:01 | US ---
EXAMINATION TYPE: US venous doppler duplex LE LT DATE OF EXAM: 11/05/2021 1:58 PM COMPARISON: NONE CLINICAL HISTORY: 71-year-old female M25.571 PAIN IN RT ANKLE, I80.9 PHLEBITIS AND THROMBOPHLEBITIS. Left leg swelling. On blood thinners. Hx right ankle injury. SIDE PERFORMED: Left TECHNIQUE: The lower extremity deep venous system is examined utilizing real time linear array sonog irving with graded compression, doppler sonography and color-flow sonography. FINDINGS: VESSELS IMAGED: Common Femoral Vein Deep Femoral Vein Greater Saphenous Vein * Femoral Vein Popliteal Vein Small Saphenous Vein * Proximal Calf Veins (* superficial vessels) Left Leg: Negative for DVT IMPRESSION: No evidence for DVT within the left lower extremity imaged from the groin to the upper calf.
== END | disposition home or self-care (01) ==
LOC: RADUSWWP 13:02
PROVIDERS: ATTEND Orthopaedic Surgery
DX: S93.04XD Dislocation of right ankle joint, subsequent encounter (principal); S82.851D Displaced trimalleolar fracture of right lower leg, subsequent encounter for closed fracture with routine healing; I80.9 Phlebitis and thrombophlebitis of unspecified site; X58.XXXD Exposure to other specified factors, subsequent encounter

== ENCOUNTER 2021-11-14 10:22 | Inpatient (IN) | payer MEDICARE ==
[2021-11-14] MEDS ORDERED: SODIUM CHLORIDE 0.9% 500 ML 500 ML IV ONE (10:56)
[2021-11-14] MEDS ORDERED: SODIUM CHLORIDE 0.9% 1,000 ML IV STA (10:56)
--- NOTE | 2021-11-14 11:01 | ED ---
Altered Mental Status HPI - General Chief Complaint: Altered Mental Status Stated Complaint: AMS Time Seen by Provider: 11/14/21 10:40 Source: patient, family, RN notes reviewed, old records reviewed Mode of arrival: wheelchair Limitations: altered mental status - History of Present Illness Initial Comments: 71-year-old female with a history of a recent right ankle fracture which she was in rehab for at [facility] one week ago who is been home now for a week has been progressively deteriorating with decrease oral intake decreased fluid intake she is here today with her who states that she is acting more confused has some question whether she is taking her medications properly. No reports of fevers chills nausea vomiting sweats. She states food just doesn't taste good she doesn't feel like eating. MD Complaint: altered mental status - Related Data Home Medications Medication Instructions Recorded Confirmed Fluticasone/Umeclidin/Vilanter 1 puff INHALATION RT-DAILY 03/04/21 10/20/21 [Trelegy Ellipta 100-62.5-25] Melatonin 10 mg PO HS 03/04/21 10/20/21 PARoxetine HCL 40 mg PO DAILY 03/04/21 10/20/21 Vits A,C,E/Lutein/Minerals 1 tab PO DAILY 03/04/21 10/20/21 [Ocuvite with Lutein Tablet] Apixaban [Eliquis] 5 mg PO BID 09/27/21 10/20/21 buPROPion HCL [Wellbutrin XL] 300 mg PO DAILY 09/27/21 10/20/21 Oxybutynin Chloride [Oxybutynin 10 mg PO DAILY 10/20/21 10/20/21 Chloride ER] Previous Rx's Medication Instructions Recorded Aspirin 81 mg PO DAILY 03/06/21 Atorvastatin [Lipitor] 40 mg PO HS #30 tablet 03/06/21 Acetaminophen Tab [Tylenol] 650 mg PO Q6HR PRN tab 10/08/21 Ipratropium-Albuterol Nebulize 3 ml INHALATION RT-TID ml 10/08/21 [Duoneb 0.5 mg-3 mg/3 ml Soln] Pilocarpine [Salagen] 5 mg PO TID tab 10/08/21 ALPRAZolam [Xanax] 0.5 mg PO BID PRN #6 tab 10/22/21 Apixaban [Eliquis] 5 mg PO BID tab 10/22/21 Diphenox-Atrop 2.5-0.025 mg 2 tab PO BID PRN #6 tab 10/22/21 [Lomotil] Gabapentin 300 mg PO HS #3 cap 10/22/21 Psyllium Husk 100% [Metamucil 6 gm PO BID #1 packet 10/22/21 Packet] Allergies Allergy/AdvReac Type Severity Reaction Status Date / Time benazepril Allergy Anaphylaxis Verified 11/14/21 10:26 Penicillins Allergy Face Verified 11/14/21 10:26 swelling sertraline [From Zoloft] Allergy Face Verified 11/14/21 10:26 swelling Sulfa (Sulfonamide Allergy Face Verified 11/14/21 10:26 Antibiotics) swelling Review of Systems ROS Statement: Those systems with pertinent positive or pertinent negative responses have been documented in the HPI. ROS Other: All systems not noted in ROS Statement are negative. Past Medical History Past Medical History: Cancer, GERD/Reflux, GI Bleed, Hypertension, Musculoskeletal Disorder Additional Past Medical History / Comment(s): Colon cancer 2016/right colectomy- had surg. & chemo, CVA, COPD. Seizure, fx. R ankle, sciatica, chronic atrial flutter. History of Any Multi-Drug Resistant Organisms: None Reported Past Surgical History: Bowel Resection, Cholecystectomy, Orthopedic Surgery, Tonsillectomy Additional Past Surgical History / Comment(s): right wrist surgery post fracture, robotic colectomy Past Anesthesia/Blood Transfusion Reactions: No Reported Reaction Past Psychological History: Anxiety Smoking Status: Former smoker Past Alcohol Use History: Occasional Past Drug Use History: None Reported - Past Family History Mother Family Medical History: Cancer Additional Family Medical History / Comment(s): Bladder cancer. Sister(s) Family Medical History: Cancer Additional Family Medical History / Comment(s): Colon cancer. General Exam - General Exam Comments Initial Comments: This is a well-developed well-nourished awake alert oriented 3 female Limitations: altered mental status General appearance: anxious Head exam: Present: atraumatic, normocephalic, normal inspection Eye exam: Present: normal appearance, PERRL, EOMI. Absent: scleral icterus, conjunctival injection, periorbital swelling ENT exam: Present: mucous membranes dry Neck exam: Present: normal inspection, full ROM, other (No stridor JVD or bruits). Absent: tenderness, meningismus, lymphadenopathy Respiratory exam: Present: decreased breath sounds. Absent: respiratory distress, wheezes, rales, rhonchi, stridor Cardiovascular Exam: Present: regular rate, normal rhythm, normal heart sounds. Absent: systolic murmur, diastolic murmur, rubs, gallop, clicks GI/Abdominal exam: Present: soft, normal bowel sounds. Absent: distended, tenderness, guarding, rebound, rigid Extremities exam: Present: normal inspection, full ROM, normal capillary refill. Absent: tenderness, pedal edema, joint swelling, calf tenderness Back exam: Present: normal inspection Neurological exam: Present: alert, oriented X3, CN II-XII intact Psychiatric exam: Present: normal affect, normal mood Skin exam: Present: warm, dry, intact, normal color. Absent: rash Course Vital Signs 11/14/21 11/14/21 11/14/21 10:27 11:23 13:06 Temperature 98 F Pulse Rate 49 L 45 L 68 Respiratory 18 20 20 Rate Blood Pressure 181/75 173/81 O2 Sat by Pulse 900 H 86 L 86 L Oximetry 11/14/21 11/14/21 11/14/21 14:26 14:29 14:37 Temperature Pulse Rate 48 L 45 L 44 L Respiratory 18 Rate Blood Pressure 160/87 O2 Sat by Pulse 95 Oximetry Medical Decision Making - Medical Decision Making I did reevaluate the patient multiple occasions she still demonstrates of his breath sounds hypoxemia on room air she does maintain an adequate blood pressure with her current heart rate she'll be admitted did discuss case with the patient and her and Dr. Villegas. The current presentation appears be consistent with a COPD exacerbation - Lab Data Result diagrams: 11/14/21 11:08 11/14/21 11:08 Lab Results 11/14/21 11/14/21 11/14/21 Range/Units 11:08 11:08 11:08 WBC 8.8 (3.8-10.6) k/uL RBC 4.40 (3.80-5.40) m/uL Hgb 12.4 (11.4-16.0) gm/dL Hct 41.5 (34.0-46.0) % MCV 94.3 (80.0-100.0) fL MCH 28.2 (25.0-35.0) pg MCHC 29.8 L (31.0-37.0) g/dL RDW 15.5 (11.5-15.5) % Plt Count 475 H (150-450) k/uL MPV 7.0 Neutrophils % 81 % Lymphocytes % 8 % Monocytes % 7 % Eosinophils % 1 % Basophils % 1 % Neutrophils # 7.2 (1.3-7.7) k/uL Lymphocytes # 0.7 L (1.0-4.8) k/uL Monocytes # 0.6 (0-1.0) k/uL Eosinophils # 0.1 (0-0.7) k/uL Basophils # 0.1 (0-0.2) k/uL Hypochromasia Marked Poikilocytosis Slight PT 12.8 H (9.0-12.0) sec INR 1.2 H (<1.2) APTT 27.7 (22.0-30.0) sec Sodium 140 (137-145) mmol/L Potassium 5.3 H (3.5-5.1) mmol/L Chloride 110 H (98-107) mmol/L Carbon Dioxide 19 L (22-30) mmol/L Anion Gap 11 mmol/L BUN 10 (7-17) mg/dL Creatinine 0.99 (0.52-1.04) mg/dL Est GFR (CKD-EPI)AfAm 66 (>60 ml/min/1.73 sqM) Est GFR (CKD-EPI)NonAf 57 (>60 ml/min/1.73 sqM) Glucose 102 H (74-99) mg/dL POC Glucose (mg/dL) (75-99) mg/dL POC Glu [employer] ID Calcium 9.0 (8.4-10.2) mg/dL Magnesium 1.8 (1.6-2.3) mg/dL Total Bilirubin 1.1 (0.2-1.3) mg/dL AST 36 (14-36) U/L ALT 20 (4-34) U/L Alkaline Phosphatase 140 H (38-126) U/L Ammonia (<30) umol/L Troponin I (0.000-0.034) ng/mL NT-Pro-B Natriuret Pep pg/mL Total Protein 6.5 (6.3-8.2) g/dL Albumin 3.9 (3.5-5.0) g/dL Lipase 68 (23-300) U/L 11/14/21 11/14/21 11/14/21 Range/Units 11:08 11:08 11:08 WBC (3.8-10.6) k/uL RBC (3.80-5.40) m/uL Hgb (11.4-16.0) gm/dL Hct (34.0-46.0) % MCV (80.0-100.0) fL MCH (25.0-35.0) pg MCHC (31.0-37.0) g/dL RDW (11.5-15.5) % Plt Count (150-450) k/uL MPV Neutrophils % % Lymphocytes % % Monocytes % % Eosinophils % % Basophils % % Neutrophils # (1.3-7.7) k/uL Lymphocytes # (1.0-4.8) k/uL Monocytes # (0-1.0) k/uL Eosinophils # (0-0.7) k/uL Basophils # (0-0.2) k/uL Hypochromasia Poikilocytosis PT (9.0-12.0) sec INR (<1.2) APTT (22.0-30.0) sec Sodium (137-145) mmol/L Potassium (3.5-5.1) mmol/L Chloride (98-107) mmol/L Carbon Dioxide (22-30) mmol/L Anion Gap mmol/L BUN (7-17) mg/dL Creatinine (0.52-1.04) mg/dL Est GFR (CKD-EPI)AfAm (>60 ml/min/1.73 sqM) Est GFR (CKD-EPI)NonAf (>60 ml/min/1.73 sqM) Glucose (74-99) mg/dL POC Glucose (mg/dL) (75-99) mg/dL POC Glu [employer] ID Calcium (8.4-10.2) mg/dL Magnesium (1.6-2.3) mg/dL Total Bilirubin (0.2-1.3) mg/dL AST (14-36) U/L ALT (4-34) U/L Alkaline Phosphatase (38-126) U/L Ammonia <9 (<30) umol/L Troponin I 0.028 (0.000-0.034) ng/mL NT-Pro-B Natriuret Pep 4410 pg/mL Total Protein (6.3-8.2) g/dL Albumin (3.5-5.0) g/dL Lipase (23-300) U/L 11/14/21 Range/Units 11:10 WBC (3.8-10.6) k/uL RBC (3.80-5.40) m/uL Hgb (11.4-16.0) gm/dL Hct (34.0-46.0) % MCV (80.0-100.0) fL MCH (25.0-35.0) pg MCHC (31.0-37.0) g/dL RDW (11.5-15.5) % Plt Count (150-450) k/uL MPV Neutrophils % % Lymphocytes % % Monocytes % % Eosinophils % % Basophils % % Neutrophils # (1.3-7.7) k/uL Lymphocytes # (1.0-4.8) k/uL Monocytes # (0-1.0) k/uL Eosinophils # (0-0.7) k/uL Basophils # (0-0.2) k/uL Hypochromasia Poikilocytosis PT (9.0-12.0) sec INR (<1.2) APTT (22.0-30.0) sec Sodium (137-145) mmol/L Potassium (3.5-5.1) mmol/L Chloride (98-107) mmol/L Carbon Dioxide (22-30) mmol/L Anion Gap mmol/L BUN (7-17) mg/dL Creatinine (0.52-1.04) mg/dL Est GFR (CKD-EPI)AfAm (>60 ml/min/1.73 sqM) Est GFR (CKD-EPI)NonAf (>60 ml/min/1.73 sqM) Glucose (74-99) mg/dL POC Glucose (mg/dL) 105 H (75-99) mg/dL POC Glu [employer] ID Claudia Lennon Calcium (8.4-10.2) mg/dL Magnesium (1.6-2.3) mg/dL Total Bilirubin (0.2-1.3) mg/dL AST (14-36) U/L ALT (4-34) U/L Alkaline Phosphatase (38-126) U/L Ammonia (<30) umol/L Troponin I (0.000-0.034) ng/mL NT-Pro-B Natriuret Pep pg/mL Total Protein (6.3-8.2) g/dL Albumin (3.5-5.0) g/dL Lipase (23-300) U/L - EKG Data -: EKG Interpreted by Me EKG Comments: Atrial flutter with a rate of 45 QRS 109 QT since QTC of 34/488deviation and incomplete right bundle-branch block evidence of LVH - Radiology Data Radiology results: report reviewed (Imaging reviewed increased tone of basilar markings), image reviewed Disposition Clinical Impression: COPD with exacerbation, Hypoxemia, Bradycardia, Dehydration Disposition: ADMITTED IP TO THIS HOSP Condition: Fair Referrals: Davis Ty DO [Primary Care Provider] - 1-2 days Decision Date: 11/14/21 Decision Time: 14:59
[2021-11-14 11:11] LABS: Glucose,Whole Blood 105 mg/dL (75-99)
[2021-11-14 11:26] LABS: Basophils # (A) 0.1 k/uL (0-0.2); Basophils % (A) 1 %; Eosinophils # (A) 0.1 k/uL (0-0.7); Eosinophils % (A) 1 %; HCT 41.5 % (34.0-46.0); HGB 12.4 gm/dL (11.4-16.0); Hypochromasia Marked; Lymphocytes # (A) 0.7 k/uL (1.0-4.8); Lymphocytes % (A) 8 %; MCH 28.2 pg (25.0-35.0); MCHC 29.8 g/dL (31.0-37.0); MCV 94.3 fL (80.0-100.0); Monocytes # (A) 0.6 k/uL (0-1.0); Monocytes % (A) 7 %; Neutrophils # (A) 7.2 k/uL (1.3-7.7); Neutrophils % (A) 81 %; Platelet Count 475 k/uL (150-450); Poikilocytosis Slight; RDW 15.5 % (11.5-15.5); WBC 8.8 k/uL (3.8-10.6)
[2021-11-14 11:36] LABS: INR 1.2 (<1.2); Partial Thromboplastin Time 27.7 sec (22.0-30.0); Prothrombin Time 12.8 sec (9.0-12.0)
--- NOTE | 2021-11-14 11:44 | XR ---
EXAMINATION TYPE: XR chest 2V DATE OF EXAM: 11/14/2021 COMPARISON: Chest x-ray October 07, 2021 HISTORY: Altered mental status and weakness. TECHNIQUE: Frontal and lateral views of the chest are obtained. FINDINGS: More prominent cardiomegaly with tiny bilateral pleural effusions.. Increased reticular ma rkings bilaterally redemonstrated. Osseous structures are demineralized. IMPRESSION: Possible CHF exacerbation as there is cardiomegaly with tiny bilateral pleural effusions and mild interstitial edema versus chronic interstitial fibrosis.
[2021-11-14 11:48] LABS: Albumin 3.9 g/dL (3.5-5.0); Total Bilirubin 1.1 mg/dL (0.2-1.3); Total Protein 6.5 g/dL (6.3-8.2)
[2021-11-14 11:49] LABS: Magnesium 1.8 mg/dL (1.6-2.3); Potassium 5.3 mmol/L (3.5-5.1)
[2021-11-14] MEDS ORDERED: methylPREDNISolone SOD SUCCI 125 MG/2 ML VIAL IV STA (13:11)
[2021-11-14] MEDS ORDERED: IPRATROPIUM-ALBUTEROL 3 ML NEB INHALATION STA (13:11)
[2021-11-14] MEDS ORDERED: NALOXONE 0.4 MG/ML 1 ML VIAL IV PRN (15:02)
[2021-11-14] MEDS ORDERED: DIPHENOX-ATROP 2.5-0.025 MG 1 EACH TAB PO PRN (15:08)
[2021-11-14] MEDS ORDERED: SODIUM CHLORIDE 0.9% 1,000 ML IV SCH (15:15)
[2021-11-14] MEDS ORDERED: CALCIUM CARBONATE 500 MG CHEWABLE PO PRN (16:27)
[2021-11-14] MEDS ORDERED: ONDANSETRON 4 MG/2 ML VIAL IVP PRN (16:27)
[2021-11-14] MEDS ORDERED: LACTULOSE 20 GM/30 ML CUP PO PRN (16:27)
[2021-11-14] MEDS ORDERED: ACETAMINOPHEN TAB 325 MG TAB PO PRN (16:27)
--- NOTE | 2021-11-14 16:32 | P.HPIM ---
History of Present Illness H&P Date: 11/14/21 Chief Complaint: Short of breath Hospital course: 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 Chronic stable medical conditions include GERD, hypertension, colon cancer, seizure, sciatica, COPD. February 2021 - right brainstem thalamic stroke. Atrial flutter-fibrillation on eliquis. Was in the hospital from September 27 through October 08 with right ankle fracture. was taken to the OR Was in atrial flutter. In the perioperative period patient went into a asystole. 1 minute of CPR. Surgery was postponed. Taken to the ICU. Had atrial flutter and possible V. tach. cardiac catheterization.- No significant disease. chronic dry mouth.- Salagen was started. Patient going to pulmonary edema. Received IV Lasix. [facility] [place] Patient has been home for one week. As per the not taking her medications. Sometimes a bit confused. Decreased appetite. Feels dehydrated. Her ankle has been healing well. himself is a bit handicapped and finds it difficult to manage. No fever no chills. No burning in the urine. Tired. Brace on the right foot. Review of systems: GEN.: Tired EYES: [None] HEENT: [Dry mouth] NECK: [None] RESPIRATORY: [Some shortness of breath] CARDIOVASCULAR: [None] GASTROINTESTINAL: [None] GENITOURINARY: [None] MUSCULOSKELETAL: Joint pains] LYMPHATICS: [None] HEMATOLOGICAL: [None] PSYCHIATRY: [Occasional confusion] NEUROLOGICAL: [None] Past medical history to include: Colon cancer treated with chemotherapy and surgery in 2016, sciatica, essential hypertension, GERD, COPD. Acute right brainstem thalamic stroke in February 2021 Social history: . Smoked less than a pack a day for 45 years stopped in 2017. Alcohol occasionally. Family history: Bladder cancer Physical examination: VITAL SIGNS: [98, 49, 18, 160/87, 95% room air GENERAL: [BMI 29.2, reclining in bed, anxious]. EYES: [Pupils equal. Conjunctiva ludmila]l. HEENT: [External appearance of nose and ears normal, oral cavity grossly normal]. NECK: [JVD not raised; masses not palpable]. HEART: [First and second heart sounds are normal; no edema]. LUNGS:[ Respiratory rate increased; decreased breath sounds]. ABDOMEN: [Soft, nontender, liver spleen not palpable, no masses palpable]. PSYCH: [Alert and oriented x3; mood and affect anxious]l. MUSCULOSKELETAL:No Clubbing/cyanosis;muscles-grossly intact. OA. Right foot in a splint NEUROLOGICAL: [Cranial nerves grossly intact; no facial asymmetry, power and sensation grossly intact]. LYMPHATICS: [No lymph nodes palpable in the axilla and neck] INVESTIGATIONS, reviewed in the clinical context: White count 8.8 hemoglobin 12.4 platelets 475 4140 potassium 5.3 BUN 10 creatinine 0.99 ProBNP 4410 EKG tracing personally reviewed by me-atrial flutter the rate of 45. Chest x-ray film personally reviewed by me-pulmonary edema Previous labs: October 08: Sodium 142 potassium 4.3 BUN 23 creatinine 1.34 2-D echocardiogram: Severe concentric LVH. EF 55-60%. Possible LVOT obstruction. Moderate MR. Assessment and plan: -Acute on chronic congestive heart failure exacerbation from preserved LV function/diastolic likely secondary to atrial flutter fibrillation IV Lasix 40 mg every 6. 2 doses. Fluid restriction 2000 mL a day -Chronic right ankle trimalleolar fracture secondary to fall Close reduction and long leg splint. Surgery down the line By Dr. John -COPD in a X smoker trelegy -Moderate mitral regurgitation Follow clinically -Chronic xerostomia Salagen -Primary osteoarthritis Pain medications as needed -Hypertensive heart disease -Chronic urinary stress incontinence Detrol LA 4 mg daily -Anxiety not otherwise specified: Controlled Xanax 0.5 mg twice a day when necessary, Paxil 40 mg daily. Consult psychiatry -Essential hypertension Monitor blood pressure -Persistent atrial flutter fibrillation: Rate controlled eliquis. -Full code IV Lasix 40 mg 2 doses. Fluid restriction 2000 mL. Resume home medications. Care was discussed with the patient has been at the bedside. Consult psychiatry to adjust medications for anxiety. Given the complexity and severity of patient's condition expect the patient to be in the hospital at least for 2 overnights Past Medical History Past Medical History: Cancer, GERD/Reflux, GI Bleed, Hypertension, Musculosk eletal Disorder Additional Past Medical History / Comment(s): Colon cancer 2016/right colectomy- had surg. & chemo, CVA, COPD. Seizure, fx. R ankle, sciatica, chronic atrial f lutter. History of Any Multi-Drug Resistant Organisms: None Reported Past Surgical History: Bowel Resection, Cholecystectomy, Orthopedic Surgery, Tonsillectomy Additional Past Surgical History / Comment(s): right wrist surgery post fracture, robotic colectomy Past Anesthesia/Blood Transfusion Reactions: No Reported Reaction Past Psychological History: Anxiety Smoking Status: Former smoker Past Alcohol Use History: Occasional Past Drug Use History: None Reported - Past Family History Mother Family Medical History: Cancer Additional Family Medical History / Comment(s): Bladder cancer. Sister(s) Family Medical History: Cancer Additional Family Medical History / Comment(s): Colon cancer. Medications and Allergies Home Medications Medication Instructions Recorded Confirmed Type Fluticasone/Umeclidin/Vilanter 1 puff INHALATION RT-DAILY 03/04/21 11/14/21 History [Trelegy Ellipta 100-62.5-25] PARoxetine HCL 40 mg PO DAILY 03/04/21 11/14/21 History Atorvastatin [Lipitor] 40 mg PO HS #30 tablet 03/06/21 11/14/21 Rx Apixaban [Eliquis] 5 mg PO BID 09/27/21 11/14/21 History buPROPion HCL [Wellbutrin XL] 300 mg PO DAILY 09/27/21 11/14/21 History Ipratropium-Albuterol Nebulize 3 ml INHALATION RT-TID ml 10/08/21 11/14/21 Rx [Duoneb 0.5 mg-3 mg/3 ml Soln] Pilocarpine [Salagen] 5 mg PO TID tab 10/08/21 11/14/21 Rx Oxybutynin Chloride [Oxybutynin 10 mg PO DAILY 10/20/21 11/14/21 History Chloride ER] ALPRAZolam [Xanax] 0.5 mg PO BID PRN #6 tab 10/22/21 11/14/21 Rx Diphenox-Atrop 2.5-0.025 mg 2 tab PO BID PRN #6 tab 10/22/21 11/14/21 Rx [Lomotil] Psyllium Husk 100% [Metamucil 6 gm PO BID #1 packet 10/22/21 11/14/21 Rx Packet] Potassium Chloride ER [K-Dur 20] 40 meq PO DAILY 11/14/21 11/14/21 History Allergies Allergy/AdvReac Type Severity Reaction Status Date / Time benazepril Allergy Anaphylaxis Verified 11/14/21 10:26 Penicillins Allergy Face Verified 11/14/21 10:26 swelling sertraline [From Zoloft] Allergy Face Verified 11/14/21 10:26 swelling Sulfa (Sulfonamide Allergy Face Verified 11/14/21 10:26 Antibiotics) swelling Physical Exam Vitals: Vital Signs Temp Pulse Resp BP Pulse Ox 11/14/21 14:37 44 L 11/14/21 14:29 45 L 18 160/87 95 11/14/21 14:26 48 L 11/14/21 13:06 68 20 86 L 11/14/21 11:23 45 L 20 173/81 86 L 11/14/21 10:27 98 F 49 L 18 181/75 900 H Intake and Output 11/14/21 11/14/21 11/14/21 06:59 14:59 22:59 Other: Weight 77.111 kg Results CBC & Chem 7: 11/14/21 11:08 11/14/21 11:08 Labs: Abnormal Lab Results - Last 24 Hours (Table) 11/14/21 11/14/21 11/14/21 Range/Units 11:08 11:08 11:08 MCHC 29.8 L (31.0-37.0) g/dL Plt Count 475 H (150-450) k/uL Lymphocytes # 0.7 L (1.0-4.8) k/uL PT 12.8 H (9.0-12.0) sec INR 1.2 H (<1.2) Potassium 5.3 H (3.5-5.1) mmol/L Chloride 110 H (98-107) mmol/L Carbon Dioxide 19 L (22-30) mmol/L Glucose 102 H (74-99) mg/dL POC Glucose (mg/dL) (75-99) mg/dL Alkaline Phosphatase 140 H (38-126) U/L 11/14/21 Range/Units 11:10 MCHC (31.0-37.0) g/dL Plt Count (150-450) k/uL Lymphocytes # (1.0-4.8) k/uL PT (9.0-12.0) sec INR (<1.2) Potassium (3.5-5.1) mmol/L Chloride (98-107) mmol/L Carbon Dioxide (22-30) mmol/L Glucose (74-99) mg/dL POC Glucose (mg/dL) 105 H (75-99) mg/dL Alkaline Phosphatase (38-126) U/L
[2021-11-14] MEDS: FUROSEMIDE 10 MG/ML 4 ML VIAL IV SCH ×2 (17:03→20:10)
[2021-11-14 17:04] LABS: Appearance,Urine Clear (Clear); Bacteria,Urine Rare /hpf; Bilirubin,Urine Negative (Negative); Blood,Urine Negative (Negative); Color,Urine Light Yellow; Glucose,Urine (UA) Negative (Negative); Hyaline Casts,Urine 1 /lpf (0-2); Ketones,Urine Negative (Negative); Leukocyte Esterase,Urine Negative (Negative); Mucus,Urine Rare /hpf; Nitrite,Urine Positive (Negative); Protein,Urine Trace (Negative); RBC,Urine <1 /hpf (0-5); Specific Gravity,Urine 1.007 (1.001-1.035); Squamous Epithelial Cell,Urine <1 /hpf (0-4); Urobilinogen,Urine <2.0 mg/dL (<2.0); WBC,Urine 5 /hpf (0-5)
[2021-11-14 17:09] LABS: Amphetamine Screen,Urine Not Detected (NotDetected); Barbiturate Screen,Urine Not Detected (NotDetected); Benzodiazepines Screen,Urine Not Detected (NotDetected); Cocaine Screen,Urine Not Detected (NotDetected); Methadone Screen, Urine Not Detected (NotDetected); Opiate Screen,Urine Not Detected (NotDetected); Oxycodone Screen, Urine Not Detected (NotDetected); Phencyclidine Screen,Urine Not Detected (NotDetected); Tricyclic Antidepressant,Urine Not Detected (NotDetected); Urn Cannabinoid Scrn Not Detected (NotDetected)
[2021-11-14] MEDS: PILOCARPINE 5 MG TAB PO SCH ×2 (17:21→20:10)
[2021-11-14] MEDS: ATORVASTATIN 40 MG TAB PO SCH (20:10)
[2021-11-14] MEDS: APIXABAN 5 MG TAB PO SCH (20:10)
[2021-11-14] MEDS: ALPRAZolam 0.5 MG TAB PO PRN (20:10)
[2021-11-14] MEDS: PSYLLIUM HUSK 100% 6 GM PACKET PO SCH (20:11)
[2021-11-15] MEDS: ALPRAZolam 0.5 MG TAB PO PRN (00:51)
[2021-11-15 08:07] LABS: Calcium 8.6 mg/dL (8.4-10.2); Potassium 4.3 mmol/L (3.5-5.1)
[2021-11-15] MEDS: PARoxetine 20 MG TAB PO SCH (08:15)
[2021-11-15] MEDS: POTASSIUM CHLORIDE ER 20 MEQ TAB.ER PO SCH (08:16)
[2021-11-15] MEDS: APIXABAN 5 MG TAB PO SCH ×2 (08:16→21:11)
[2021-11-15] MEDS: PILOCARPINE 5 MG TAB PO SCH ×3 (08:16→21:12)
[2021-11-15] MEDS: PSYLLIUM HUSK 100% 6 GM PACKET PO SCH ×2 (08:16→21:11)
[2021-11-15] MEDS: SYMBICORT 80-4.5 MCG INHALER INHALATION SCH ×2 (08:55→21:00)
[2021-11-15] MEDS: IPRATROPIUM 0.5 MG/2.5 ML NEBU INHALATION SCH ×4 (08:55→21:00)
[2021-11-15] MEDS ORDERED: POTASSIUM CHLORIDE ER 20 MEQ TAB.ER PO SCH (09:00)
[2021-11-15] MEDS ORDERED: FUROSEMIDE 40 MG TAB PO SCH (09:00)
--- NOTE | 2021-11-15 12:59 | P.PN ---
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 Chronic stable medical conditions include GERD, hypertension, colon cancer, seizure, sciatica, COPD. February 2021 - right brainstem thalamic stroke. Atrial flutter-fibrillation on eliquis. Was in the hospital from September 27 through October 08 with right ankle fracture. was taken to the OR Was in atrial flutter. In the perioperative period patient went into a asystole. 1 minute of CPR. Surgery was postponed. Taken to the ICU. Had atrial flutter and possible V. tach. cardiac catheterization.- No significant disease. chronic dry mouth.- Salagen was started. Patient going to pulmonary edema. Received IV Lasix. [facility] [place]. Patient has been home for one week. As per the not taking her medications. Sometimes a bit confused. Decreased appetite. Feels dehydrated. Her ankle has been healing well. himself is a bit handicapped and finds it difficult to manage. No fever no chills. No burning in the urine. Tired. Brace on the right foot. Admitted with, acute on chronic CHF, received IV Lasix. Atrial flutter fibrillation rate controlled on present 40s. November 15: Oral intake fair. Able to come indicated. Breathing better. Fluid restriction 2000 mL. Because of decreased ventricular rate will consult cardiology. Discussed with patient. Received IV Lasix yesterday. Active Medications Acetaminophen (Acetaminophen Tab 325 Mg Tab) 650 mg PO Q6HR PRN PRN Reason: Mild Pain or Fever > 100.5 Alprazolam (Alprazolam 0.5 Mg Tab) 0.5 mg PO BID PRN PRN Reason: Anxiety Last Admin: 11/15/21 00:51 Dose: 0.5 mg Documented by: Apixaban (Apixaban 5 Mg Tab) 5 mg PO BID [facility]; Protocol Last Admin: 11/15/21 08:16 Dose: 5 mg Documented by: Atorvastatin Calcium (Atorvastatin 40 Mg Tab) 40 mg PO HS [facility] Last Admin: 11/14/21 20:10 Dose: 40 mg Documented by: Budesonide/Formoterol Fumarate (Symbicort 80-4.5 Mcg Inhaler) 2 puff INHALATION RT-BID [facility] Last Admin: 11/15/21 08:55 Dose: 2 puff Documented by: Bupropion HCl (Bupropion Xl 300 Mg Tab.Er.24h) 300 mg PO DAILY [facility] Calcium Carbonate/Glycine (Calcium Carbonate 500 Mg Chewable) 1,000 mg PO Q4HR PRN PRN Reason: Dyspepsia Diphenoxylate HCl/Atropine (Diphenox-Atrop 2.5-0.025 Mg 1 Each Tab) 2 each PO BID PRN PRN Reason: Diarrhea Ipratropium [place] (Ipratropium 0.5 Mg/2.5 Ml Nebu) 0.5 mg INHALATION RT-QID [facility] Last Admin: 11/15/21 12:01 Dose: 0.5 mg Documented by: Lactulose (Lactulose 20 Gm/30 Ml Cup) 20 gm PO DAILY PRN PRN Reason: Constipation Naloxone HCl (Naloxone 0.4 Mg/Ml 1 Ml Vial) 0.2 mg IV Q2M PRN PRN Reason: Opioid Reversal Ondansetron HCl (Ondansetron 4 Mg/2 Ml Vial) 4 mg IVP Q8HR PRN PRN Reason: Nausea And Vomiting Oxybutynin Chloride (Oxybutynin 10 Mg Tab.Er.24) 10 mg PO DAILY [facility] Paroxetine HCl (Paroxetine 20 Mg Tab) 40 mg PO DAILY [facility] Last Admin: 11/15/21 08:15 Dose: 40 mg Documented by: Pilocarpine HCl (Pilocarpine 5 Mg Tab) 5 mg PO TID [facility] Last Admin: 11/15/21 08:16 Dose: 5 mg Documented by: Potassium Chloride (Potassium Chloride Er 20 Meq Tab.Er) 20 meq PO DAILY [facility] Last Admin: 11/15/21 08:16 Dose: 20 meq Documented by: Psyllium Hydrophilic Mucilloid (Psyllium Husk 100% 6 Gm Packet) 6 gm PO BID [facility] Last Admin: 11/15/21 08:16 Dose: 6 gm Documented by: Past medical history to include: Colon cancer treated with chemotherapy and surgery in 2015, sciatica, essential hypertension, GERD, COPD. Acute right brainstem thalamic stroke in February 2021 Social history: . Smoked less than a pack a day for 45 years stopped in 2016. Alcohol occasionally. Family history: Bladder cancer Physical examination: VITAL SIGNS: 97.8, 44, 16, 138/66, 93% on 2 L GENERAL: reclining in bed, anxious. EYES: Pupils equal. Conjunctiva normal. HEENT: External appearance of nose and ears normal, oral cavity grossly normal. NECK: JVD not raised; masses not palpable. HEART: First and second heart sounds are normal; no edema. LUNGS: Respiratory rate increased; decreased breath sounds. ABDOMEN: Soft, nontender, liver spleen not palpable, no masses palpable. PSYCH: Alert and oriented x3; mood and affect anxiousl. MUSCULOSKELETAL:No Clubbing/cyanosis;muscles-grossly intact. OA. Right foot in a splint INVESTIGATIONS, reviewed in the clinical context: November 15: Potassium 4.3 creatinine 0.98 White count 8.8 hemoglobin 12.4 platelets 475 4140 potassium 5.3 BUN 10 creatinine 0.99 ProBNP 4410 EKG tracing personally reviewed by me-atrial flutter the rate of 45. Chest x-ray film personally reviewed by me-pulmonary edema Previous labs: October 08: Sodium 142 potassium 4.3 BUN 23 creatinine 1.34 2-D echocardiogram: Severe concentric LVH. EF 55-60%. Possible LVOT obstruction. Moderate MR. Assessment and plan: -Acute on chronic congestive heart failure exacerbation from preserved LV function/diastolic likely secondary to atrial flutter fibrillation Received IV Lasix.. Fluid restriction 2000 mL a day. Chest x-ray tomorrow. Consult cardiology -Chronic right ankle trimalleolar fracture secondary to fall Close reduction and long leg splint. Surgery down the line By Dr. John -COPD in a X smoker trelegy -Moderate mitral regurgitation Follow clinically -Chronic xerostomia Salagen -Primary osteoarthritis Pain medications as needed -Hypertensive heart disease -Chronic urinary stress incontinence Detrol LA 4 mg daily -Anxiety not otherwise specified: Controlled Xanax 0.5 mg twice a day when necessary, Paxil 40 mg daily. Consult psychiatry -Essential hypertension Monitor blood pressure -Persistent atrial flutter fibrillation: With heart rate in the 40s. eliquis. Consult cardiology -Full code chest x-ray in a.m. Consult cardiology. Heart rate in the 40s. Fluid restriction. Other medications to continue. Discussed with patient.
[2021-11-15] MEDS: OXYBUTYNIN 10 MG TAB.ER.24 PO SCH (13:49)
[2021-11-15] MEDS: buPROPion XL 300 MG TAB.ER.24H PO SCH (13:49)
[2021-11-15] MEDS: ATORVASTATIN 40 MG TAB PO SCH (21:11)
[2021-11-16] MEDS: IPRATROPIUM 0.5 MG/2.5 ML NEBU INHALATION SCH ×4 (08:15→19:51)
[2021-11-16] MEDS: SYMBICORT 80-4.5 MCG INHALER INHALATION SCH ×2 (08:15→19:53)
--- NOTE | 2021-11-16 08:16 | XR ---
EXAMINATION TYPE: XR chest 2V DATE OF EXAM: 11/16/2021 COMPARISON: X-ray dated 11/14/2021 HISTORY: CHF TECHNIQUE: Frontal and lateral views of the chest are obtained. FINDINGS: Slightly improved signs of pulmonary edema/CHF, yet still appreciated. Suspected background of COPD c hanges. Blunting of the CP recesses, possibly due to small bilateral pleural effusions, more prominent compar ed to the previous x-ray. Suspected chronic atelectasis in the left lung base. Unchanged cardiomediastinal silhouette, aortic a therosclerotic calcification and bony thoracic cage. IMPRESSION: Mild interval changes as described above.
[2021-11-16] MEDS ORDERED: FUROSEMIDE 40 MG TAB PO SCH (09:15)
[2021-11-16] MEDS: PILOCARPINE 5 MG TAB PO SCH ×2 (09:39→17:40)
[2021-11-16] MEDS: APIXABAN 5 MG TAB PO SCH ×3 (09:39→20:45)
[2021-11-16] MEDS: PARoxetine 20 MG TAB PO SCH (09:39)
[2021-11-16] MEDS: ISOSORBIDE MONONITRATE ER 30 MG TAB.ER.24H PO SCH (09:39)
[2021-11-16] MEDS: POTASSIUM CHLORIDE ER 20 MEQ TAB.ER PO SCH (09:39)
[2021-11-16] MEDS: buPROPion XL 300 MG TAB.ER.24H PO SCH (09:39)
[2021-11-16] MEDS: hydrALAZINE HCL 25 MG TAB PO SCH ×3 (09:39→20:30)
[2021-11-16] MEDS: OXYBUTYNIN 10 MG TAB.ER.24 PO SCH (09:39)
[2021-11-16] MEDS: PSYLLIUM HUSK 100% 6 GM PACKET PO SCH (09:40)
--- NOTE | 2021-11-16 12:02 | P.CRDCN ---
History of Present Illness Consult date: 11/16/21 History of present illness: HISTORY OF PRESENT ILLNESS: This is a 71-year-old female with a past medical history significant for atrial fibrillation, hypertension, COPD, hyperlipidemia, and recent right ankle fracture. Patient follows in the office with Dr. Alston. We have been asked to see the patient in consultation for bradycardia. Patient examined at the bedside. Patient states she presented to the hospital because she was confused about w hich medication she was supposed to be taking. According to the ER no, the patient has been confused and had decreased oral intake at home. The patient currently denies chest pain or pressure. She denies shortness of breath. Her main complaint this morning is that she feels cold. Telemetry reviewed revealing atrial flutter with a heart rate in the 40s. The patient is not on any AV whitney blocking agents. She denies dizziness or lightheadedness. Patient's blood pressure was elevated this morning and hydralazine was added to her medication regimen. The patient was also found to be in mild CHF. She was given a dose of IV Lasix. * EKG reveals atrial flutter with slow ventricular rate * Chest xray slightly improved signs of pulmonary edema/CHF. Suspect a background of COPD. * Laboratory data: WBC 8.8. Hemoglobin 12.4. Platelet count 475. Sodium 139. Potassium 4.3. BUN 11. Creatinine 0.98. Troponin negative 1. ProBNP 4410. * Current home cardiac medications include Lipitor 40 mg at night and Eliquis 5 mg twice a day * Most recent echocardiogram obtained in September 2021 revealed ejection fraction 55-60%, mild aortic stenosis, moderate mitral regurgitation, mild tricuspid regurgitation, mild pulmonary hypertension * Cardiac catheterization history: September 2021 revealing mild nonobstructive coronary artery disease REVIEW OF SYSTEMS: At the time of my exam: CONSTITUTIONAL: Denies fever or chills. HEENT: Denies blurred vision, vision changes, or eye pain. Denies hemoptysis CARDIOVASCULAR: Denies chest pain. Denies orthopnea. Denies PND. Denies palpitations RESPIRATORY: Denies shortness of breath. GASTROINTESTINAL: Denies abdominal pain. Denies nausea or vomiting. HEMATOLOGIC: Denies bleeding disorders. GENITOURINARY: Denies any blood in urine. SKIN: Denies pruitis. Denies rash. PHYSICAL EXAM: VITAL SIGNS: Reviewed. GENERAL: Well-developed in no acute distress. HEENT: Head is normocephalic. Pupils are equal, round. Sclerae anicteric. Mucous membranes of the mouth are moist. Neck supple. No JVD or thyromegaly LUNGS: Respirations even and unlabored. Lungs essentially clear to auscultation bilaterally. HEART: Bradycardic. Irregular rate and rhythm. S1 and S2 heard. Systolic murmur noted. ABDOMEN: Soft. Nondistended. Nontender. EXTREMITIES: Normal range of motion. No clubbing or cyanosis. Peripheral pulses intact. Trace lower extremity edema NEUROLOGIC: Awake and alert. Oriented x 3. ASSESSMENT: Acute heart failure with preserved ejection fraction Persistent atrial fibrillation/typical atrial flutter with slow ventricular rate Hypertension Hyperlipidemia COPD Recent right ankle fracture PLAN: No need to repeat echo as this was performed in September 2021 Hydralazine added to patient's medication regimen today by Dr. Swenson for optimal blood pressure control Add Lasix 40mg PO daily Add Imdur 30mg PO daily Continue to monitor telemetry Avoid AV whitney blocking agents Possible pacemaker insertion if patient continues to remain bradycardic Further recommendations pending patient course Nurse practitioner note has been reviewed by physician. Signing provider agrees with the documented findings, assessment, and plan of care. Past Medical History Past Medical History: Cancer, GERD/Reflux, GI Bleed, Hypertension, Musculoskeletal Disorder Additional Past Medical History / Comment(s): Colon cancer 2015/right colectomy- had surg. & chemo, CVA, COPD. Seizure, fx. R ankle, sciatica, chronic atrial flutter. History of Any Multi-Drug Resistant Organisms: None Reported Past Surgical History: Bowel Resection, Cholecystectomy, Orthopedic Surgery, Tonsillectomy Additional Past Surgical History / Comment(s): right wrist surgery post fracture, robotic colectomy Past Anesthesia/Blood Transfusion Reactions: No Reported Reaction Past Psychological History: Anxiety Smoking Status: Former smoker Past Alcohol Use History: Occasional Additional Past Alcohol Use History / Comment(s): Quit smoking Jun 2016, smoked 45 yrs, <1PPD. Past Drug Use History: None Reported - Past Family History Mother Family Medical History: Cancer Additional Family Medical History / Comment(s): Bladder cancer. Sister(s) Family Medical History: Cancer Additional Family Medical History / Comment(s): Colon cancer. Medications and Allergies Home Medications Medication Instructions Recorded Confirmed Type Fluticasone/Umeclidin/Vilanter 1 puff INHALATION RT-DAILY 03/04/21 11/14/21 History [Trelegy Ellipta 100-62.5-25] PARoxetine HCL 40 mg PO DAILY 03/04/21 11/14/21 History Atorvastatin [Lipitor] 40 mg PO HS #30 tablet 03/06/21 11/14/21 Rx Apixaban [Eliquis] 5 mg PO BID 09/27/21 11/14/21 History buPROPion HCL [Wellbutrin XL] 300 mg PO DAILY 09/27/21 11/14/21 History Ipratropium-Albuterol Nebulize 3 ml INHALATION RT-TID ml 10/08/21 11/14/21 Rx [Duoneb 0.5 mg-3 mg/3 ml Soln] Pilocarpine [Salagen] 5 mg PO TID tab 10/08/21 11/14/21 Rx Oxybutynin Chloride [Oxybutynin 10 mg PO DAILY 10/20/21 11/14/21 History Chloride ER] ALPRAZolam [Xanax] 0.5 mg PO BID PRN #6 tab 10/22/21 11/14/21 Rx Diphenox-Atrop 2.5-0.025 mg 2 tab PO BID PRN #6 tab 10/22/21 11/14/21 Rx [Lomotil] Psyllium Husk 100% [Metamucil 6 gm PO BID #1 packet 10/22/21 11/14/21 Rx Packet] Potassium Chloride ER [K-Dur 20] 40 meq PO DAILY 11/14/21 11/14/21 History Allergies Allergy/AdvReac Type Severity Reaction Status Date / Time benazepril Allergy Anaphylaxis Verified 11/14/21 10:26 Penicillins Allergy Face Verified 11/14/21 10:26 swelling sertraline [From Zoloft] Allergy Face Verified 11/14/21 10:26 swelling Sulfa (Sulfonamide Allergy Face Verified 11/14/21 10:26 Antibiotics) swelling Physical Exam Vitals: Vital Signs Temp Pulse Pulse Resp BP Pulse Ox 11/16/21 11:38 52 L 11/16/21 08:23 50 L 11/16/21 08:15 52 L 11/16/21 08:00 98.3 F 46 L 18 142/60 91 L 11/16/21 04:00 97.6 F 45 L 16 158/84 93 L 11/16/21 01:51 47 L 16 11/15/21 23:37 98 F 47 L 16 143/74 92 L 11/15/21 21:10 52 L 11/15/21 21:00 50 L 11/15/21 20:00 97.5 F L 46 L 16 131/68 93 L 11/15/21 17:10 48 L 11/15/21 16:53 46 L 11/15/21 16:10 98.5 F 46 L 16 129/59 94 L 11/15/21 13:49 97.9 F 42 L 18 91/51 95 11/15/21 12:10 45 L 11/15/21 12:01 46 L Intake and Output 11/15/21 11/16/21 11/16/21 22:59 06:59 14:59 Output Total 350 150 Balance -350 -150 Output: Urine 350 150 Other: Voiding Method Diaper Diaper Diaper Incontinent Incontinent Incontinent External Catheter External Catheter External Catheter Weight 77.1 kg Results 11/14/21 11:08 11/15/21 07:33 Current Medications Generic Name Dose Route Start Last Admin Trade Name Freq PRN Reason Stop Dose Admin Acetaminophen 650 mg 11/14/21 16:27 Acetaminophen Tab 325 Mg Tab PO Q6HR PRN Mild Pain or Fever > 100.5 Alprazolam 0.5 mg 11/14/21 15:08 11/15/21 00:51 Alprazolam 0.5 Mg Tab PO 0.5 mg BID PRN Administration Anxiety Apixaban 5 mg 11/14/21 21:00 11/16/21 09:39 Apixaban 5 Mg Tab PO 5 mg BID MELINA Administration Protocol Atorvastatin Calcium 40 mg 11/14/21 21:00 11/15/21 21:11 Atorvastatin 40 Mg Tab PO 40 mg HS MELINA Administration Budesonide/Formoterol Fumarate 2 puff 11/15/21 08:00 11/16/21 08:15 Symbicort 80-4.5 Mcg Inhaler INHALATION 2 puff RT-BID MELINA Administration Bupropion HCl 300 mg 11/15/21 09:00 11/16/21 09:39 Bupropion Xl 300 Mg Tab.Er.24h PO 300 mg DAILY MELINA Administration Calcium Carbonate/Glycine 1,000 mg 11/14/21 16:27 Calcium Carbonate 500 Mg Chewable PO Q4HR PRN Dyspepsia Diphenoxylate HCl/Atropine 2 each 11/14/21 15:08 Diphenox-Atrop 2.5-0.025 Mg 1 Each Tab PO BID PRN Diarrhea Furosemide 40 mg 11/16/21 09:15 11/16/21 09:39 Furosemide 40 Mg Tab PO 40 mg DAILY MELINA Administration Hydralazine HCl 25 mg 11/16/21 09:00 11/16/21 09:39 Hydralazine Hcl 25 Mg Tab PO 25 mg BID MELINA Administration Ipratropium [place] 0.5 mg 11/15/21 08:00 11/16/21 11:38 Ipratropium 0.5 Mg/2.5 Ml Nebu INHALATION 0.5 mg RT-QID MELINA Administration Isosorbide Mononitrate 30 mg 11/16/21 09:15 11/16/21 09:39 Isosorbide Mononitrate Er 30 Mg Tab.Er.24h PO 30 mg DAILY MELINA Administration Lactulose 20 gm 11/14/21 16:27 Lactulose 20 Gm/30 Ml Cup PO DAILY PRN Constipation Naloxone HCl 0.2 mg 11/14/21 15:02 Naloxone 0.4 Mg/Ml 1 Ml Vial IV Q2M PRN Opioid Reversal Ondansetron HCl 4 mg 11/14/21 16:27 Ondansetron 4 Mg/2 Ml Vial IVP Q8HR PRN Nausea And Vomiting Oxybutynin Chloride 10 mg 11/15/21 09:00 11/16/21 09:39 Oxybutynin 10 Mg Tab.Er.24 PO 10 mg DAILY MELINA Administration Paroxetine HCl 40 mg 11/15/21 09:00 11/16/21 09:39 Paroxetine 20 Mg Tab PO 40 mg DAILY MELINA Administration Pilocarpine HCl 5 mg 11/14/21 16:00 11/16/21 09:39 Pilocarpine 5 Mg Tab PO 5 mg TID MELINA Administration Potassium Chloride 20 meq 11/15/21 09:00 11/16/21 09:39 Potassium Chloride Er 20 Meq Tab.Er PO 20 meq DAILY MELINA Administration Psyllium Hydrophilic Mucilloid 6 gm 11/14/21 21:00 11/16/21 09:40 Psyllium Husk 100% 6 Gm Packet PO Not Given BID MELINA Intake and Output 11/15/21 11/16/21 11/16/21 22:59 06:59 14:59 Output Total 350 150 Balance -350 -150 Output: Urine 350 150 Other: Voiding Method Diaper Diaper Diaper Incontinent Incontinent Incontinent External Catheter External Catheter External Catheter Weight 77.1 kg Patient Weight 11/17/21 06:59 Weight 77.1 kg 11/14/21 11:08 11/15/21 07:33
--- NOTE | 2021-11-16 14:22 | P.CN ---
Psychiatric Consult - . Consult date: 11/16/21 Consult:: IDENTIFYING DATA AND REASON FOR CONSULT: She is a 71-year-old female admitted to medicine for evaluation of increasing confusion. The hospitalist consult to psychiatry rate patient for "anxiety, uncontrolled." PERTINENT PSYCHIATRIC HISTORY: I reviewed the medical record and interviewed the patient. She stated that she was unaware of a psychiatric consult but agreed to proceed with the evaluation. She talked about the circumstances resulted in his hospitalization perseverating on the arguments with her over her medications. She was able to give a recently organize history of her medical problems over the last 6 months. She was concerned about her confusional states. In response to questions about anxiety she replied that it has "not been bad." She denied experiencing flushing, restlessness, fearfulness, unsteadiness, nervousness, tremulousness, facial flushing or hot/cold sweats. She complained of lightheadedness, feeling frightened about her health, heart palpitations and difficulty breathing. She denied feelings of hopelessness, helplessness or worthlessness. She denied persistent feelings of depression, wishes and suicidal ideation. She denied periods of increased anxiety suggestive of panic attacks. She denied obsessions or compulsions. She denied experiencing such psychotic symptoms as paranoia and perceptual disturbances. He does not drink history of substance misuse. PAST PSYCHIATRIC AND/OR SUBSTANCE USE HISTORY: She met with a psychiatrist "many years ago". Her primary care provider prescribed Paxil, again, "many years ago" during which she described as a significant depressive episode. He also prescribed Xanax when necessary for anxiety. She denied experiencing significant episodes of depression since she started the combination of Paxil and Xanax. Following to the stroke in 2020 at neurologist prescribed bupropion. She alleged she did not understand why he prescribed bupropion or why she is taking 2 antidepressants. However, she denied that she experience any adverse effects from this combination. She met with the individual therapist in the past related to depression and anxiety she also had marital counseling during the period of marital difficulties. She denied past psychiatric hospitalizations. SOCIAL HISTORY: She has been 52 years. She has 2 adult children. She is estranged from her daughter. MENTAL STATUS EXAM:. She presented as a casually groomed elderly female who was pleasant on approach. She made eye contact and attended the interview. She had no distinguishing features or prominent physical abnormalities. She had a bright facial expression. She was alert and oriented to person, place and time. Her speech was spontaneous, slightly dysarthric but with normal rate, volume and rhythm. Her affect was bright, stable and appropriate. She denied suicidal ideation and wishes she denied homicidal ideation. She denied feeling hopeless, helpless or worthless. She ruminated about her health and her multiple hospitalizations. She did not express ideas reference, paranoid ideation or delusions. Her thinking was abstract and associations were coherent and logical. She denied hallucinations did not appear to be responding to internal stimuli. We completed the [facility] Orientation Memory and Concentration Test. Her total weighted error score was 14; total weighted error score greater than 10 is consistent with a dementia. She showed impairment in short-term memory, concentration and attention. She was fully oriented and knew the year and month. She was able to count backwards from 20-1 but had difficulty naming the months of the year in reverse order. She could not remember the memory phrase after distraction exercise. IMPRESSIONS: She is a 48-year-old female who has a history of a depressive disorder successfully treated with a combination of Paxil and Xanax. She has had multiple medical problems including a right brain stem thalamic stroke in February 2021, atrial flutter and fibrillation and 1 episode of cardiac asystole. Medicine consulted regarding anxiety. However, she had minimal symptoms of anxiety and denied symptoms of depression. She had evidence of impairment in memory, concentration and attention that may be related to the cerebrovascular accident, cardiac abnormalities or cardiac asystole. However, could not rule out the possibility of a dementia. My only concern is the prescription of 2 antidepressants to an elderly woman with multiple medical problems since psychiatric medications including antidepressants in particular benzodiazepines are associated with falls. 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 Continue Paxil 40 mg daily. Limit treatment with Xanax since the associated with confusion and falling. Decrease Wellbutrin XL to 150 mg daily and discontinue after 1-2 weeks. Thank you for this consult. Psychiatrist on-call from his case. 11/16/21 13:56
--- NOTE | 2021-11-16 18:51 | CT ---
EXAMINATION TYPE: CT angio chest DATE OF EXAM: 11/16/2021 COMPARISON: 10/21/2020 HISTORY: elevated D-DIMER and SOB CT DLP: 372.2 mGycm Automated exposure control for dose reduction was used. CONTRAST: Performed with IV Contrast, patient injected with 80 mL of Isovue 370. There are 3-D post processed images. There is a moderate right pleural effusion. There is airspace infiltrate and atelectasis at both lung bases. Heart is enlarged. No pericardial effusion. There are no hilar masses. There is no mediastinal adenopathy. Thoracic aorta is atheromatous. No ane urysm or dissection. No evidence of filling defect in the pulmonary arteries. There is right bronchial lymph nodes that me asure 1.5 cm. There is some spurring in the thoracic spine. Sternum is intact. IMPRESSION: No evidence of pulmonary embolism. Bilateral lower lobe pulmonary infiltrates and atelectasis with ri ght pleural effusion. Congestive heart failure is possible. Cardiomegaly. Pleural fluid and infiltrat es are mostly new compared to old exam. There is mild right-sided bronchial adenopathy without change .
--- NOTE | 2021-11-16 20:05 | P.PN ---
Subjective Progress Note Date: 11/16/21 Hospital course: 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 Chronic stable medical conditions include GERD, hypertension, colon cancer, seizure, sciatica, COPD. February 2021 - right brainstem thalamic stroke. Atrial flutter-fibrillation on eliquis. Was in the hospital from September 27 through October 08 with right ankle fracture. was taken to the OR Was in atrial flutter. In the perioperative period patient went into a asystole. 1 minute of CPR. Surgery was postponed. Taken to the IC U. Had atrial flutter and possible V. tach. cardiac catheterization.- No significant disease. chronic dry mouth.- Salagen was started. Patient going to pulmonary edema. Received IV Lasix. [facility] [place] Patient has been home for one week. As per the not taking her medications. Sometimes a bit confused. Decreased appetite. Feels dehydrated. Her ankle has been healing well. himself is a bit handicapped and finds it difficult to manage. No fever no chills. No burning in the urine. Tired. Brace on the right foot. Admitted with, acute on chronic CHF, received IV Lasix. Atrial flutter fibrillation rate controlled on present 40s. November 15: Oral intake fair. Able to come indicated. Breathing better. Fluid restriction 2000 mL. Because of decreased ventricular rate will consult cardiology. Discussed with patient. Received IV Lasix yesterday. 11/16/2021 Patient is seen in follow-up this morning and awaiting cardiology consultation as patient's heart rate has been in the low 40s to 50s. Patient initially admitted with increasing shortness of breath and feeling unwell with decreased appetite and some confusion. Patient reports to having a history of COPD and uses nebulizers but was not requiring oxygen and is currently maintained on 2 L via nasal cannula. Will add d-dimer and if positive will order CT angios of the chest to rule out pulmonary embolism. Patient currently denies chest pain or palpitations. Patient is afebrile. No reports of nausea or vomiting noted and patient is tolerating diet. Psychiatry was also consulted as patient is currently on some psychiatric medications for increased anxiety and needs evaluation. Patient denies any suicidal ideation or thoughts of harming herself or others. Active Medications Acetaminophen (Acetaminophen Tab 325 Mg Tab) 650 mg PO Q6HR PRN PRN Reason: Mild Pain or Fever > 100.5 Alprazolam (Alprazolam 0.5 Mg Tab) 0.5 mg PO BID PRN PRN Reason: Anxiety Last Admin: 11/15/21 00:51 Dose: 0.5 mg Apixaban (Apixaban 5 Mg Tab) 5 mg PO BID [facility]; Protocol Last Admin: 11/16/21 09:39 Dose: 5 mg Atorvastatin Calcium (Atorvastatin 40 Mg Tab) 40 mg PO HS [facility] Last Admin: 11/15/21 21:11 Dose: 40 mg Budesonide/Formoterol Fumarate (Symbicort 80-4.5 Mcg Inhaler) 2 puff INHALATION RT-BID [facility] Last Admin: 11/16/21 08:15 Dose: 2 puff Bupropion HCl (Bupropion Xl 300 Mg Tab.Er.24h) 300 mg PO DAILY [facility] Last Admin: 11/16/21 09:39 Dose: 300 mg Calcium Carbonate/Glycine (Calcium Carbonate 500 Mg Chewable) 1,000 mg PO Q4HR PRN PRN Reason: Dyspepsia Diphenoxylate HCl/Atropine (Diphenox-Atrop 2.5-0.025 Mg 1 Each Tab) 2 each PO BID PRN PRN Reason: Diarrhea Furosemide (Furosemide 40 Mg Tab) 40 mg PO DAILY [facility] Last Admin: 11/16/21 09:39 Dose: 40 mg Hydralazine HCl (Hydralazine Hcl 25 Mg Tab) 25 mg PO BID [facility] Last Admin: 11/16/21 09:39 Dose: 25 mg Ipratropium [place] (Ipratropium 0.5 Mg/2.5 Ml Nebu) 0.5 mg INHALATION RT-QID [facility] Last Admin: 11/16/21 11:38 Dose: 0.5 mg Isosorbide Mononitrate (Isosorbide Mononitrate Er 30 Mg Tab.Er.24h) 30 mg PO DAILY [facility] Last Admin: 11/16/21 09:39 Dose: 30 mg Lactulose (Lactulose 20 Gm/30 Ml Cup) 20 gm PO DAILY PRN PRN Reason: Constipation Naloxone HCl (Naloxone 0.4 Mg/Ml 1 Ml Vial) 0.2 mg IV Q2M PRN PRN Reason: Opioid Reversal Ondansetron HCl (Ondansetron 4 Mg/2 Ml Vial) 4 mg IVP Q8HR PRN PRN Reason: Nausea And Vomiting Oxybutynin Chloride (Oxybutynin 10 Mg Tab.Er.24) 10 mg PO DAILY [facility] Last Admin: 11/16/21 09:39 Dose: 10 mg Paroxetine HCl (Paroxetine 20 Mg Tab) 40 mg PO DAILY [facility] Last Admin: 11/16/21 09:39 Dose: 40 mg Pilocarpine HCl (Pilocarpine 5 Mg Tab) 5 mg PO TID [facility] Last Admin: 11/16/21 09:39 Dose: 5 mg Potassium Chloride (Potassium Chloride Er 20 Meq Tab.Er) 20 meq PO DAILY [facility] Last Admin: 11/16/21 09:39 Dose: 20 meq Psyllium Hydrophilic Mucilloid (Psyllium Husk 100% 6 Gm Packet) 6 gm PO BID [facility] Last Admin: 11/16/21 09:40 Dose: Not Given Physical examination: GENERAL: This is a 71-year-old female awake, alert and oriented 3, well- developed, well-nourished, slightly anxious EYES: Pupils equal. Conjunctiva normal. HEENT: External appearance of nose and ears normal, oral cavity grossly normal. NECK: JVD not raised; masses not palpable. HEART: S1, S2 muffled LUNGS: Diminished breath sounds bilaterally with no wheezing or rhonchi noted, no crackles noted ABDOMEN: Soft, non-tender, positive bowel sounds, no masses palpable. PSYCH: Alert and oriented x3; mood and affect, mildly anxious. MUSCULOSKELETAL: No Clubbing/cyanosis;muscles-grossly intact. OA. Right foot in a splint status post surgical intervention Assessment: Acute on chronic congestive heart failure, with diastolic dysfunction, acute exacerbation Elevated d-dimer, ruled out PE right pleural effusion Persistent Atrial flutter/fibrillation Chronic right ankle trimalleolar fracture secondary to fall with recent closed reduction with Dr. John COPD, not in exacerbation Former smoker Chronic xerostomia Osteoarthritis Hypertension Anxiety GI prophylaxis DVT prophylaxis Full code Plan: Recommend to continue with breathing inhalational treatments. Cardiology consulted and pending for boogie cardia/ aflutter, CHF exacerbation Patient continues on 02 via NC at 2 liters with 02 of 91% and will add d-dimer D-dimer positive and no evidence of PE noted although with right pleural effusion. Patient was started on oral lasix and will transition to IV lasix for 24 hours and consult pulmonary for the right pleural effusion Recommend repeat am labs Recommend to wean FI02 as tolerated and will do home 02 evaluation. Continue 2000cc fluid restriction Psychiatry consulted and appreciate input and recommendations on medications Prognosis is guarded The impression and plan of care has been dictated by Lynsey Rogers, Nurse Practitioner as directed. Dr. Marcela MD I have performed a history and examination and MDM of this patient, discussed the same with the dictator, and agree with the dictator's assessment and plan as written ,documented as a scribe. Based on total visit time, I have performed more than 50% of the visit. Objective - Vital Signs Vital signs: Vital Signs Temp 97.6 F 11/16/21 04:00 Pulse 50 L 11/16/21 08:23 Resp 16 11/16/21 04:00 BP 158/84 11/16/21 04:00 Pulse Ox 93 L 11/16/21 04:00 FiO2 Intake & Output 11/15/21 11/16/21 11/16/21 18:59 06:59 18:59 Output Total 350 150 Balance -350 -150 Output: Urine 350 150 Other: Voiding Method Diaper Diaper Incontinent Incontinent External Catheter External Catheter # Voids 1 - Labs CBC & Chem 7: 11/14/21 11:08 11/15/21 07:33
[2021-11-16] MEDS: ATORVASTATIN 40 MG TAB PO SCH (20:06)
[2021-11-16] MEDS: FUROSEMIDE 10 MG/ML 4 ML VIAL IV SCH ×2 (20:06→20:30)
[2021-11-17] MEDS: PILOCARPINE 5 MG TAB PO SCH ×5 (00:17→22:42)
[2021-11-17] MEDS: PSYLLIUM HUSK 100% 6 GM PACKET PO SCH ×4 (00:17→20:45)
[2021-11-17] MEDS: ALPRAZolam 0.5 MG TAB PO PRN (05:47)
[2021-11-17] MEDS ORDERED: HALOPERIDOL LACTATE 5 MG/ML 1 ML VIAL IM ONE (06:04)
[2021-11-17 08:06] LABS: Calcium 8.7 mg/dL (8.4-10.2)
[2021-11-17 08:15] LABS: Potassium 3.9 mmol/L (3.5-5.1)
[2021-11-17] MEDS: IPRATROPIUM 0.5 MG/2.5 ML NEBU INHALATION SCH ×4 (08:48→19:33)
[2021-11-17] MEDS: SYMBICORT 80-4.5 MCG INHALER INHALATION SCH ×2 (08:48→19:32)
[2021-11-17] MEDS: FUROSEMIDE 10 MG/ML 4 ML VIAL IV SCH (09:03)
--- NOTE | 2021-11-17 10:23 | P.CNPUL ---
History of Present Illness Consult date: 11/17/21 Reason for consult: dyspnea History of present illness: This is a 71-year-old female patient with known history of COPD and previous history of colon cancer with a previous colectomy and chemotherapy and the patient is still in remission. 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 The patient has history of atrial flutter and the patient has been on long-term anticoagulation. The patient was in the [facility] on 09/28/2021 for a fall and she had a close fracture of the ankle. She had bimalleolar ankle fracture. She was taken to the operating room and the patient had a brief asystole and she required CPR for a total of 1 minutes and following that, the surgery was postponed and the patient was brought into the intensive care unit. At that point, she was monitored in the ICU for a few days without any cardiac events. Cardiology saw the patient and cleared the patient after undergoing a echocardiogram and a cardiac catheterization. The cardiac catheterization was done on 10/01/2021 preoperatively and the patient had no evidence of any ischemic coronary artery disease. The troponins were no nelevated. The patient was ultimately discharged to rehabilitation. The patient is coming back to the hospital and she got admitted yesterday through the emergency department because of altered mental status. The patient discharged home comfortable was at the rehab and she was discharged home of and she was at home for almost a week and she was progressively deteriorating with diminished oral intake and decreased fluid intake and the stated that she was acting more confused. For that reason she was brought in. She has no fever or chills. No nausea or vomiting. No sweats. She stated that food doesn't taste good and she hasn't been eating at all. In the emergency, the patient a white second of 8.8 with hemoglobin 12.4 and platelets of 475 and sodium was at 140 with a serum bicarb of 19 and a BUN of 10 with a creatinine of 0.99. The liver function tests were normal. The patient had an AST of 36, ALT of 20 alk phos of 140. The patient had a d-dimer of 1.49. UA showed trace protein, otherwise negative. Urine drug screen was negative. Coagulation profile was within normal limits. ProBNP level was 4410 and ammonia level was less than 9. CAT scan of the chest was done and this was a CTA and it showed no evidence of any pulmonary embolism. There was some bilateral lower lobe pulmonary infiltrates and atelectasis with right-sided pleural effusion and there was cardiomegaly and this obviously raises the concern for CHF. There was some mild right sided bronchial adenopathy, thought to be likely benign. The CTA also showed some background emphysema with upper lobe predominance. Some compressive atelectasis in the right lung base. Review of Systems Constitutional: Reports fatigue, Reports weakness Eyes: denies as per HPI, denies blurred vision, denies bulging eye, denies decreased vision, denies diplopia, denies discharge, denies dry eye, denies irritation, denies itching, denies pain, denies photophobia, denies loss of peripheral vision, denies loss of vision, denies tunnel vision/blind spots Ears: deny: decreased hearing, ear discharge, earache, tinnitus Ears, nose, mouth and throat: Reports as per HPI Breasts: absent: as per HPI, change in shape, gynecomastia, masses, nipple discharge, pain, skin changes, swelling Cardiovascular: Reports as per HPI Respiratory: Reports as per HPI Gastrointestinal: Reports as per HPI, Genitourinary: Reports as per HPI Menstruation: Reports as per HPI Musculoskeletal: Reports fractures Musculoskeletal: right: ankle pain, ankle stiffness, ankle swelling Integumentary: Reports as per HPI Neurological: Reports as per HPI, generalized weakness and confusion Psychiatric: Reports as per HPI Endocrine: Reports as per HPI Hematologic/Lymphatic: Reports as per HPI Allergic/Immunologic: Reports as per HPI Past Medical History Past Medical History: Cancer, COPD, GERD/Reflux, GI Bleed, Hypertension, Musculoskeletal Disorder Additional Past Medical History / Comment(s): Colon cancer 2016/right colectomy- had surg. & chemo, CVA, COPD. Seizure, fx. R ankle, sciatica, chronic atrial flutter. History of Any Multi-Drug Resistant Organisms: None Reported Past Surgical History: Bowel Resection, Cholecystectomy, Orthopedic Surgery, Tonsillectomy Additional Past Surgical History / Comment(s): right wrist surgery post fracture, robotic colectomy Past Anesthesia/Blood Transfusion Reactions: No Reported Reaction Past Psychological History: Anxiety Smoking Status: Former smoker Past Alcohol Use History: Occasional Additional Past Alcohol Use History / Comment(s): Quit smoking Jun 2016, smoked 45 yrs, <1PPD. Past Drug Use History: None Reported - Past Family History Mother Family Medical History: Cancer Additional Family Medical History / Comment(s): Bladder cancer. Sister(s) Family Medical History: Cancer Additional Family Medical History / Comment(s): Colon cancer. Medications and Allergies Home Medications Medication Instructions Recorded Confirmed Type Fluticasone/Umeclidin/Vilanter 1 puff INHALATION RT-DAILY 03/04/21 11/14/21 History [Trelegy Ellipta 100-62.5-25] PARoxetine HCL 40 mg PO DAILY 03/04/21 11/14/21 History Atorvastatin [Lipitor] 40 mg PO HS #30 tablet 03/06/21 11/14/21 Rx Apixaban [Eliquis] 5 mg PO BID 09/27/21 11/14/21 History buPROPion HCL [Wellbutrin XL] 300 mg PO DAILY 09/27/21 11/14/21 History Ipratropium-Albuterol Nebulize 3 ml INHALATION RT-TID ml 10/08/21 11/14/21 Rx [Duoneb 0.5 mg-3 mg/3 ml Soln] Pilocarpine [Salagen] 5 mg PO TID tab 10/08/21 11/14/21 Rx Oxybutynin Chloride [Oxybutynin 10 mg PO DAILY 10/20/21 11/14/21 History Chloride ER] ALPRAZolam [Xanax] 0.5 mg PO BID PRN #6 tab 10/22/21 11/14/21 Rx Diphenox-Atrop 2.5-0.025 mg 2 tab PO BID PRN #6 tab 10/22/21 11/14/21 Rx [Lomotil] Psyllium Husk 100% [Metamucil 6 gm PO BID #1 packet 10/22/21 11/14/21 Rx Packet] Potassium Chloride ER [K-Dur 20] 40 meq PO DAILY 11/14/21 11/14/21 History Allergies Allergy/AdvReac Type Severity Reaction Status Date / Time benazepril Allergy Anaphylaxis Verified 11/14/21 10:26 Penicillins Allergy Face Verified 11/14/21 10:26 swelling sertraline [From Zoloft] Allergy Face Verified 11/14/21 10:26 swelling Sulfa (Sulfonamide Allergy Face Verified 05/21/22 10:26 Antibiotics) swelling Physical Exam Vitals: Vital Signs Temp Pulse Pulse Resp BP Pulse Ox 11/17/21 09:03 48 L 11/17/21 08:50 46 L 11/17/21 08:00 97.2 F L 46 L 16 161/67 11/17/21 04:00 98 F 48 L 18 146/65 94 L 11/17/21 00:00 98.2 F 49 L 17 137/62 93 L 11/16/21 20:00 49 L 11/16/21 19:53 50 L 95 11/16/21 19:43 98.7 F 50 L 18 127/56 92 L 11/16/21 16:00 50 L 18 142/66 96 11/16/21 15:23 56 L 11/16/21 15:13 56 L 11/16/21 14:00 48 L 11/16/21 12:00 48 L 18 132/62 95 11/16/21 11:47 54 L 11/16/21 11:38 52 L Intake and Output 11/16/21 11/17/21 11/17/21 22:59 06:59 14:59 Intake Total 120 10 Output Total 400 400 Balance -280 -400 10 Intake: IV 10 Invasive Line 2 10 Oral 120 Output: Urine 400 400 Other: Voiding Method Diaper Diaper Incontinent Incontinent External Catheter External Catheter GENERAL EXAM: Lethargic, quite sleepy is arousable, 71-year-old white female, on 2 L of oxygen pulse ox of 95%, HEAD: Normocephalic/atraumatic. EYES: Normal reaction of pupils, equal size. Conjunctiva pink, sclera white. NOSE: Clear with pink turbinates. THROAT: No erythema or exudates. NECK: No masses, no JVD, no thyroid enlargement, no adenopathy. CHEST: No chest wall deformity. Symmetrical expansion. LUNGS: Equal air entry with no crackles, wheeze, rhonchi or dullness. CVS: Regular rate and rhythm, normal S1 and S2, no gallops, no murmurs, no rubs ABDOMEN: Soft, nontender. No hepatosplenomegaly, normal bowel sounds, no gu arding or rigidity. EXTREMITIES: No clubbing, no edema, no cyanosis, 2+ pulses and upper and lower e xtremities. MUSCULOSKELETAL: Muscle strength and tone normal. SPINE: No scoliosis or deformity SKIN: No rashes CENTRAL NERVOUS SYSTEM: Lethargic, sleepy, arousable, no significant facial asymmetry and pupils are equal and reactive to light. There is generalized weakness no 4 extremities. This is generalized global weakness. No focal deficits, tone is normal in all 4 extremities. PSYCHIATRIC: Unable to obtain Results - Laboratory Findings CBC and BMP: 11/14/21 11:08 11/17/21 07:35 PT/INR, D-dimer PT 12.8 sec (9.0-12.0) H 11/14/21 11:08 INR 1.2 (<1.2) H 11/14/21 11:08 D-Dimer 1.49 mg/L FEU (<0.60) H 11/16/21 12:57 Abnormal lab findings: Abnormal Labs 11/14/21 11/14/21 11/14/21 11:08 11:08 11:08 MCHC 29.8 L Plt Count 475 H Lymphocytes # 0.7 L PT 12.8 H INR 1.2 H D-Dimer Potassium 5.3 H Chloride 110 H Carbon Dioxide 19 L Creatinine Glucose 102 H POC Glucose (mg/dL) Alkaline Phosphatase 140 H Urine Protein Urine Nitrite Urine Bacteria Urine Mucus 11/14/21 11/14/21 11/15/21 11:10 16:40 07:33 MCHC Plt Count Lymphocytes # PT INR D-Dimer Potassium Chloride Carbon Dioxide Creatinine Glucose 110 H POC Glucose (mg/dL) 105 H Alkaline Phosphatase Urine Protein Trace H Urine Nitrite Positive H Urine Bacteria Rare H Urine Mucus Rare H 11/16/21 11/17/21 12:57 07:35 MCHC Plt Count Lymphocytes # PT INR D-Dimer 1.49 H Potassium Chloride Carbon Dioxide Creatinine 1.10 H Glucose POC Glucose (mg/dL) Alkaline Phosphatase Urine Protein Urine Nitrite Urine Bacteria Urine Mucus - Diagnostic Findings Chest x-ray: image reviewed CT scan - chest: image reviewed Assessment and Plan Plan: 1 altered mental status. The patient remains quite lethargic yet arousable. Exact cause is not clear this point in time. The patient has had previous history of a thalamic stroke/midbrain stroke. No seizure. Noted at this point in time. Neurologic exam is nonfocal.the patient was quite agitated overnight. She was given Haldol and at the time of my evaluation this morning, the patient was sedated. Nevertheless, her neuro exam was nonfocal. She obviously needs further to evaluation. 2 CHF with elevated proBNP level and small bilateral pleural effusion right more than left, underlying pneumonia is doubtful 3 right ankle bimalleolar fracture, the patient underwent closed reduction and placement of the splint 4 history of a acute cardiac arrest, asystole, exact cause is not clear. I believe this occurred preoperatively, it could have been a vagal response. Tro ponins are minimally elevated at this point in time the patient is free of any chest pain. No acute ST segment elevation or depression the patient continues to be in atrial flutter. Market Intelligence Consultant Cleared the patient back in September 2021. 5 COPD , maintained on Trelegy Ellipta on outpatient basis 6 history of colon cancer 7 chronic anxiety/depression 8 hypertension 9 chronic atrial flutter 10 non anion gap metabolic acidosis, recovered 11 degenerative arthritis 12 hypertension Plan Consult neurology CAT scan of the brain, noncontrast Check a pro-calcitonin level Check blood cultures No need for empiric antibiotic coverage at this point in time Drop the Lasix dose to 40 mg every 24 hours Continue anticoagulation with with Eliquis 5 mg by mouth twice a day Resume Trelegy Ellipta from home Put the patient on albuterol nebulized treatments 3 times a day oxygen at 2 L per minute nasal cannula
[2021-11-17] MEDS ORDERED: QUEtiapine 25 MG TAB PO PRN (11:16)
--- NOTE | 2021-11-17 12:35 | P.PN ---
Subjective Progress Note Date: 11/17/21 HISTORY OF PRESENT ILLNESS: This is a 71-year-old female with a past medical history significant for atrial fibrillation, hypertension, COPD, hyperlipidemia, and recent right ankle f racture. Patient follows in the office with Dr. Alston. We have been asked to see the patient in consultation for bradycardia. Patient examined at the bedside. Patient states she presented to the hospital because she was confused about which medication she was supposed to be taking. According to the ER no, the patient has been confused and had decreased oral intake at home. The patient currently denies chest pain or pressure. She denies shortness of breath. Her main complaint this morning is that she feels cold. Telemetry reviewed revealing atrial flutter with a heart rate in the 40s. The patient is not on any AV whitney blocking agents. She denies dizziness or lightheadedness. Patient's blood pressure was elevated this morning and hydralazine was added to her medication regimen. The patient was also found to be in mild CHF. She was given a dose of IV Lasix. * EKG reveals atrial flutter with slow ventricular rate * Chest xray slightly improved signs of pulmonary edema/CHF. Suspect a background of COPD. * Laboratory data: WBC 8.8. Hemoglobin 12.4. Platelet count 475. Sodium 139. Potassium 4.3. BUN 11. Creatinine 0.98. Troponin negative 1. ProBNP 4410. * Current home cardiac medications include Lipitor 40 mg at night and Eliquis 5 mg twice a day * Most recent echocardiogram obtained in September 2021 revealed ejection fraction 55-60%, mild aortic stenosis, moderate mitral regurgitation, mild tricuspid regurgitation, mild pulmonary hypertension * Cardiac catheterization history: September 2021 revealing mild nonobstructive coronary artery disease 11/17/2021 Patient examined this morning at the bedside. Patient is slightly confused at the time of examination. Telemetry reveals atrial flutter with a heart rate around 50. She denies any dizziness or lightheadedness. Denies shortness of breath. Denies chest pain or pressure. Blood pressure 161/67. PHYSICAL EXAM: VITAL SIGNS: Reviewed. GENERAL: Well-developed in no acute distress. HEENT: Head is normocephalic. Pupils are equal, round. Sclerae anicteric. Mucous membranes of the mouth are moist. Neck supple. No JVD or thyromegaly LUNGS: Respirations even and unlabored. Lungs essentially clear to auscultation bilaterally. HEART: Bradycardic. Irregular rate and rhythm. S1 and S2 heard. Systolic murmur noted. EXTREMITIES: Normal range of motion. No clubbing or cyanosis. Peripheral pulses intact. Trace lower extremity edema ASSESSMENT: Acute heart failure with preserved ejection fraction Persistent atrial fibrillation/typical atrial flutter with slow ventricular rate Hypertension Hyperlipidemia COPD Recent right ankle fracture PLAN: Patient's Lasix changed to IV per pulmonary Increase hydralazine to 50mg 3 times a day for optimal blood pressure control Continue to monitor telemetry Avoid AV whitney blocking agents No plans for permanent pacemaker at this time Further recommendations pending patient course Nurse practitioner note has been reviewed by physician. Signing provider agrees with the documented findings, assessment, and plan of care. Objective - Vital Signs Vital signs: Vital Signs Temp 97.2 F L 11/17/21 08:00 Pulse 48 L 11/17/21 09:03 Resp 16 11/17/21 08:00 BP 161/67 11/17/21 08:00 Pulse Ox 94 L 11/17/21 04:00 FiO2 Intake & Output 11/16/21 11/17/21 11/17/21 18:59 06:59 18:59 Intake Total 480 10 Output Total 700 400 Balance -220 -400 10 Weight 77.1 kg Intake: IV 10 Invasive Line 2 10 Oral 480 Output: Urine 700 400 Other: Voiding Method Diaper Diaper Diaper Incontinent Incontinent Incontinent External Catheter External Catheter External Catheter - Labs CBC & Chem 7: 11/14/21 11:08 11/17/21 07:35 Labs: Abnormal Lab Results - Last 24 Hours (Table) 11/16/21 11/17/21 Range/Units 12:57 07:35 D-Dimer 1.49 H (<0.60) mg/L FEU Creatinine 1.10 H (0.52-1.04) mg/dL
[2021-11-17] MEDS: APIXABAN 5 MG TAB PO SCH ×3 (13:00→20:45)
[2021-11-17] MEDS: ISOSORBIDE MONONITRATE ER 30 MG TAB.ER.24H PO SCH ×2 (13:00→18:06)
[2021-11-17] MEDS: POTASSIUM CHLORIDE ER 20 MEQ TAB.ER PO SCH (13:00)
[2021-11-17] MEDS: PARoxetine 20 MG TAB PO SCH (13:00)
[2021-11-17] MEDS: OXYBUTYNIN 10 MG TAB.ER.24 PO SCH (13:02)
[2021-11-17] MEDS: buPROPion XL 300 MG TAB.ER.24H PO SCH (13:02)
[2021-11-17] MEDS ORDERED: HALOPERIDOL LACTATE 5 MG/ML 1 ML VIAL IM PRN (14:05)
--- NOTE | 2021-11-17 14:18 | P.CON ---
Consult Note - . 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 A nurse called me early this morning concerned about her behavior and requesting a when necessary order for Haldol. When I arrived on the unit she was sitting in bed partially undressed. She had removed to boot from her foot and was attempting to get out of bed. She demanded to be discharged. She stated that she wants to get "out of here" and drive home. I spoke with the charge nurse who described intermittent periods of confusion associated with behavioral disturbances since admission. This report states refusing oral medications. Mental status exam: She was irritable, uncooperative, condescending and demanding. She would not answer questions about orientation although during our conversations she revealed that she recognized she is in the hospital. She was either in unwilling or unable to explain the reason for hospitalization. She would not answer questions about orientation to date or time. She obsessed over getting out of bed and leaving the hospital. She did not appear to responding to internal stimuli. Assessment: She is an elderly woman with a neuropsychiatric disorder and multiple medical problems. She is showing a fluctuation in awareness and understanding suggestive of a delirium. Plan: Delirium precautions recommended with patient including - avoiding use of narcotics and VIBRATOR EQUIPMENT TESTER sedatives, limit anticholinergic medications when possible, frequent re-orientation, minimize use of restraints, open window shades during the day and close them at night. Taper then discontinue bupropion. Discontinue Xanax when necessary, discontinue quetiapine when necessary for agitation. Haldol 2 mg IM or by mouth every 4 hours when necessary for agitation or psychosis. Continue with medical evaluation and treatment for the underlying causes of delirium. Psychiatry will follow.
[2021-11-17] MEDS ORDERED: LORazepam 2 MG/ML INJ IV PRN (15:02)
--- NOTE | 2021-11-17 15:37 | P.PN ---
Subjective Progress Note Date: 11/17/21 Hospital course: 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 Chronic stable medical conditions include GERD, hypertension, colon cancer, seizure, sciatica, COPD. February 2021 - right brainstem thalamic stroke. Atrial flutter-fibrillation on eliquis. Was in the hospital from September 27 through October 08 with right ankle fracture. was taken to the OR Was in atrial flutter. In the perioperative period patient went into a asystole. 1 minute of CPR. Surgery was postponed. Taken to the IC U. Had atrial flutter and possible V. tach. cardiac catheterization.- No significant disease. chronic dry mouth.- Salagen was started. Patient going to pulmonary edema. Received IV Lasix. Was [facility] on 2 [facility] [place]. Patient has been home for one week. As per the not taking her medications. Sometimes a bit confused. Decreased appetite. Feels dehydrated. Her ankle has been healing well. himself is a bit handicapped and finds it difficult to manage. No fever no chills. No burning in the urine. Tired. Brace on the right foot. Admitted with, acute on chronic CHF, received IV Lasix. Atrial flutter fibrillation rate controlled on present 40s. November 15: Oral intake fair. Able to come indicated. Breathing better. Fluid restriction 2000 mL. Because of decreased ventricular rate will consult cardiology. Discussed with patient. Received IV Lasix yesterday. 11/16/2021 Patient is seen in follow-up this morning and awaiting cardiology consultation as patient's heart rate has been in the low 40s to 50s. Patient initially admitted with increasing shortness of breath and feeling unwell with decreased appetite and some confusion. Patient reports to having a history of COPD and uses nebulizers but was not requiring oxygen and is currently maintained on 2 L via nasal cannula. Will add d-dimer and if positive will order CT angios of the chest to rule out pulmonary embolism. Patient currently denies chest pain or palpitations. Patient is afebrile. No reports of nausea or vomiting noted and patient is tolerating diet. Psychiatry was also consulted as patient is currently on some psychiatric medications for increased anxiety and needs evaluation. Patient denies any suicidal ideation or thoughts of harming herself or others. 11/17/2021 Patient is seen in follow-up this morning somnolent and obtunded and has recently just received IM Haldol as apparently per nursing staff patient became increasingly agitated and aggressive and attempted to get out of bed and remove her lower extremity brace and was demanding to leave the hospital. Patient was not alert and oriented and is being followed by psychiatry recommending weaning Wellbutrin. Seroquel was added as needed at night although this was discontinued by psychiatry. Cardiology and pulmonary following patient did receive a dose of IV Lasix today and cardiology also maximizing medical management and no plans for pacemaker at this time. Patient continues on 2 L via nasal cannula and does not wear oxygen in the outpatient setting. Patient's d-dimer was elevated CTA not suggestive of pulmonary embolism but was showing some pleural effusion. Per family patient has been becoming more confused most recently status post her ankle fracture surgery hence the reason for psychiatric evaluation. Psychiatry is following. Active Medications Acetaminophen (Acetaminophen Tab 325 Mg Tab) 650 mg PO Q6HR PRN PRN Reason: Mild Pain or Fever > 100.5 Apixaban (Apixaban 5 Mg Tab) 5 mg PO BID [facility]; Protocol Last Admin: 11/17/21 13:00 Dose: 5 mg Atorvastatin Calcium (Atorvastatin 40 Mg Tab) 40 mg PO HS [facility] Last Admin: 11/16/21 20:06 Dose: 40 mg Budesonide/Formoterol Fumarate (Symbicort 80-4.5 Mcg Inhaler) 2 puff INHALATION RT-BID [facility] Last Admin: 11/17/21 08:48 Dose: 2 puff Bupropion HCl (Bupropion Xl 150 Mg Tab.Er.24h) 150 mg PO DAILY [facility] Stop: 11/19/21 23:59 Calcium Carbonate/Glycine (Calcium Carbonate 500 Mg Chewable) 1,000 mg PO Q4HR PRN PRN Reason: Dyspepsia Diphenoxylate HCl/Atropine (Diphenox-Atrop 2.5-0.025 Mg 1 Each Tab) 2 each PO BID PRN PRN Reason: Diarrhea Furosemide (Furosemide 10 Mg/Ml 4 Ml Vial) 40 mg IV DAILY [facility] Haloperidol (Haloperidol 2 Mg Tab) 2 mg PO Q4H PRN PRN Reason: Agitation or Acute Psychosis Haloperidol Lactate (Haloperidol Lactate 5 Mg/Ml 1 Ml Vial) 2 mg IM Q4HR PRN PRN Reason: Agitation or Acute Psychosis Last Admin: 11/17/21 14:34 Dose: 2 mg Hydralazine HCl (Hydralazine Hcl 50 Mg Tab) 50 mg PO TID [facility] Ipratropium [place] (Ipratropium 0.5 Mg/2.5 Ml Nebu) 0.5 mg INHALATION RT-QID [facility] Last Admin: 11/17/21 12:41 Dose: 0.5 mg Isosorbide Mononitrate (Isosorbide Mononitrate Er 30 Mg Tab.Er.24h) 30 mg PO DAILY [facility] Last Admin: 11/17/21 13:00 Dose: 30 mg Lactulose (Lactulose 20 Gm/30 Ml Cup) 20 gm PO DAILY PRN PRN Reason: Constipation Naloxone HCl (Naloxone 0.4 Mg/Ml 1 Ml Vial) 0.2 mg IV Q2M PRN PRN Reason: Opioid Reversal Ondansetron HCl (Ondansetron 4 Mg/2 Ml Vial) 4 mg IVP Q8HR PRN PRN Reason: Nausea And Vomiting Oxybutynin Chloride (Oxybutynin 10 Mg Tab.Er.24) 10 mg PO DAILY [facility] Last Admin: 11/17/21 13:02 Dose: 10 mg Paroxetine HCl (Paroxetine 20 Mg Tab) 40 mg PO DAILY [facility] Last Admin: 11/17/21 13:00 Dose: 40 mg Pilocarpine HCl (Pilocarpine 5 Mg Tab) 5 mg PO TID [facility] Last Admin: 11/17/21 13:02 Dose: 5 mg Potassium Chloride (Potassium Chloride Er 20 Meq Tab.Er) 20 meq PO DAILY [facility] Last Admin: 11/17/21 13:00 Dose: 20 meq Psyllium Hydrophilic Mucilloid (Psyllium Husk 100% 6 Gm Packet) 6 gm PO BID [facility] Last Admin: 11/17/21 12:59 Dose: 6 gm Physical examination: GENERAL: This is a 71-year-old female asleep, groggy, lethargic but arousable, alert and oriented 1-2, well-developed, well-nourished EYES: Pupils equal. Conjunctiva normal. HEENT: External appearance of nose and ears normal, oral cavity grossly normal. NECK: JVD not raised; masses not palpable. HEART: S1, S2 muffled LUNGS: Diminished breath sounds bilaterally with no wheezing or rhonchi noted, no crackles noted ABDOMEN: Soft, non-tender, positive bowel sounds, no masses palpable. PSYCH: Alert and oriented x1-2; lethargic unable to completely assess status post recently receiving IM Haldol MUSCULOSKELETAL: No Clubbing/cyanosis;muscles-grossly intact. OA. Right foot in a splint status post surgical intervention Assessment: Acute on chronic congestive heart failure, with preserved ejection fraction, acute exacerbation Elevated d-dimer, ruled out PE Altered mental status, etiology unknown possibly a component of toxic encephalopathy and also hospital-acquired delirium right pleural effusion Persistent Atrial fibrillation/typical flutter slow ventricular rate Recent right ankle trimalleolar fracture secondary to fall with recent closed reduction with Dr. John in September 2021 COPD, not in exacerbation Former smoker Chronic xerostomia Osteoarthritis Hypertension Anxiety/depression GI prophylaxis DVT prophylaxis Full code Plan: Recommend to continue with breathing inhalational treatments. Pro-calcitonin was negative and will obtain blood cultures which are pending Recommend Neurology evaluation and CT of the brain was ordered although patient becoming increasingly agitated and refusing Cardiology following for boogie cardia/ aflutter, CHF exacerbation Patient continues on 02 via NC at 2 liters with 02 of 91% and will add d-dimer D-dimer positive and no evidence of PE noted although with right pleural effusion. Recommend Patient to continue IV lasix for 24 hours and repeat labs Recommend repeat am labs Recommend to wean FI02 as tolerated and will do home 02 evaluation. Continue 2000cc fluid restriction Psychiatry following and appreciate input and recommendations on medications, avoid narcotic and [employer] agents and multiple medications have been discontinued and patient is to continue with IM or by mouth Haldol as needed Recommend frequent reorientation and having the windows open and family at the bedside to assist with orientation of the patient. Patient becoming increasingly agitated and harmful to self and also striking at staff and will add human resources safety manager Prognosis is guarded The impression and plan of care has been dictated by Lynsey Rogers, Nurse Practitioner as directed. Dr. Marcela MD I have performed a history and examination and MDM of this patient, discussed the same with the dictator, and agree with the dictator's assessment and plan as written ,documented as a scribe. Based on total visit time, I have performed more than 50% of the visit. Objective - Vital Signs Vital signs: Vital Signs Temp 98 F 11/17/21 04:00 Pulse 48 L 11/17/21 04:00 Resp 18 11/17/21 04:00 BP 146/65 11/17/21 04:00 Pulse Ox 94 L 11/17/21 04:00 FiO2 Intake & Output 11/16/21 11/17/21 11/17/21 18:59 06:59 18:59 Intake Total 480 10 Output Total 700 400 Balance -220 -400 10 Weight 77.1 kg Intake: IV 10 Invasive Line 2 10 Oral 480 Output: Urine 700 400 Other: Voiding Method Diaper Diaper Incontinent Incontinent External Catheter External Catheter - Labs CBC & Chem 7: 11/14/21 11:08 11/17/21 07:35 Labs: Abnormal Lab Results - Last 24 Hours (Table) 11/16/21 11/17/21 Range/Units 12:57 07:35 D-Dimer 1.49 H (<0.60) mg/L FEU Creatinine 1.10 H (0.52-1.04) mg/dL
[2021-11-17] MEDS: hydrALAZINE HCL 50 MG TAB PO SCH ×2 (16:42→20:45)
--- NOTE | 2021-11-17 17:05 | P.CNNES ---
History of Present Illness Consult date: 11/17/21 Requesting physician: Fe Jackson Reason for Consult: altered mental status History of Present Illness: This is a 71-year-old woman with history of stroke 02/2021, seizure, colon cancer status post colectomy and chemotherapy is in remission, atrial flutter/fibrillation on eliquis brief asystole requiring CPR for 1 minute on 09/2021 ] of the ankle on 09/28/2021 who presented emergency department because of the altered mental status. It seems to the patient the had a right ankle fracture in September 2021 and is seems the patient. Out of. That went into asystole lasting for 1 minute of CPR so surgery was postponed she was taken to ICU patient had that atrial flutter possible V. tach she had a cardiac cath with no significant disease. Patient had pulmonary edema and received Lasix and was discharged the [facility]. History was obtained from medical record. Patient is on eliquis 5mg 1 tab bid. Patient is also on Lipitor 40 mg daily. Per nurse patient today was very agitated and received a high dose of Haldol and once Pulmonary evaluated her she was completed asleep. Of note she was seen by Dr. Daly and the patient had vertical diplopia. MRI was done and it shows that the patient has evidence of acute ischemic infarct involving the right medial thalamus/. Adequate ductal region consistent with her symptoms of global. Loss of balance and left-sided ataxia. Patient had other stroke workup. Please refer to Dr. Addy bear for further details. Some other workup in the hospital consisted of: Ammonia level is less than 9. Urinalysis is urine nitrite is positive. Rest of the CBC differential and chemistry is reviewed by me Review of Systems Review of system is limited but the prone positive and negative as per HPI. Past Medical History Past Medical History: Cancer, COPD, GERD/Reflux, GI Bleed, Hypertension, Musculoskeletal Disorder Additional Past Medical History / Comment(s): Colon cancer 2016/right colectomy- had surg. & chemo, CVA, COPD. Seizure, fx. R ankle, sciatica, chronic atrial fl utter. History of Any Multi-Drug Resistant Organisms: None Reported Past Surgical History: Bowel Resection, Cholecystectomy, Orthopedic Surgery, Tonsillectomy Additional Past Surgical History / Comment(s): right wrist surgery post fracture, robotic colectomy Past Anesthesia/Blood Transfusion Reactions: No Reported Reaction Past Psychological History: Anxiety Smoking Status: Former smoker Past Alcohol Use History: Occasional Additional Past Alcohol Use History / Comment(s): Quit smoking Jun 2016, smoked 45 yrs, <1PPD. Past Drug Use History: None Reported - Past Family History Mother Family Medical History: Cancer Additional Family Medical History / Comment(s): Bladder cancer. Sister(s) Family Medical History: Cancer Additional Family Medical History / Comment(s): Colon cancer. Medications and Allergies Home Medications Medication Instructions Recorded Confirmed Type Fluticasone/Umeclidin/Vilanter 1 puff INHALATION RT-DAILY 03/04/21 11/14/21 History [Trelegy Ellipta 100-62.5-25] PARoxetine HCL 40 mg PO DAILY 03/04/21 11/14/21 History Atorvastatin [Lipitor] 40 mg PO HS #30 tablet 03/06/21 11/14/21 Rx Apixaban [Eliquis] 5 mg PO BID 09/27/21 11/14/21 History buPROPion HCL [Wellbutrin XL] 300 mg PO DAILY 09/27/21 11/14/21 History Ipratropium-Albuterol Nebulize 3 ml INHALATION RT-TID ml 10/08/21 11/14/21 Rx [Duoneb 0.5 mg-3 mg/3 ml Soln] Pilocarpine [Salagen] 5 mg PO TID tab 10/08/21 11/14/21 Rx Oxybutynin Chloride [Oxybutynin 10 mg PO DAILY 10/20/21 11/14/21 History Chloride ER] ALPRAZolam [Xanax] 0.5 mg PO BID PRN #6 tab 10/22/21 11/14/21 Rx Diphenox-Atrop 2.5-0.025 mg 2 tab PO BID PRN #6 tab 10/22/21 11/14/21 Rx [Lomotil] Psyllium Husk 100% [Metamucil 6 gm PO BID #1 packet 10/22/21 11/14/21 Rx Packet] Potassium Chloride ER [K-Dur 20] 40 meq PO DAILY 11/14/21 11/14/21 History Allergies Allergy/AdvReac Type Severity Reaction Status Date / Time benazepril Allergy Anaphylaxis Verified 11/14/21 10:26 Penicillins Allergy Face Verified 11/14/21 10:26 swelling sertraline [From Zoloft] Allergy Face Verified 11/14/21 10:26 swelling Sulfa (Sulfonamide Allergy Face Verified 11/14/21 10:26 Antibiotics) swelling Physical Examination - Vital Signs Vital Signs: Vital Signs Temp Pulse Pulse Resp BP Pulse Ox 11/17/21 14:00 18 11/17/21 12:50 46 L 11/17/21 12:42 48 L 11/17/21 12:00 50 L 18 128/62 98 11/17/21 09:03 48 L 11/17/21 08:50 46 L 11/17/21 08:00 97.2 F L 46 L 16 161/67 11/17/21 04:00 98 F 48 L 18 146/65 94 L 11/17/21 00:00 98.2 F 49 L 17 137/62 93 L 11/16/21 20:00 49 L 11/16/21 19:53 50 L 95 11/16/21 19:43 98.7 F 50 L 18 127/56 92 L 11/16/21 16:00 50 L 18 142/66 96 11/16/21 15:23 56 L 11/16/21 15:13 56 L Intake and Output 11/17/21 11/17/21 11/17/21 06:59 14:59 22:59 Intake Total 20 Output Total 400 1000 Balance -400 -980 Intake: IV 20 Invasive Line 2 20 Output: Urine 400 1000 Other: Voiding Method Diaper Diaper Incontinent Incontinent External Catheter External Catheter GENERAL: The patient is lying in bed and does not seem in acute distress. HENT: Supple CHEST: The heart rate is regular rate rhythm. No murmurs to auscultation. LUNG: Clear to auscultation bilaterally no wheezing noted throughout. Not labored breathing. ABDOMEN/GI: Bowel sounds present in all 4 quadrants. No tenderness to palpation throughout. NEUROLOGICAL: Limited since asleep. Higher mental function: The patient is asleep and briefly awakeable. Cranial nerves: The pupils are round, equal and reactive to light. No facial droop. Motor: The strength is limited since has wrist restraints bilaterally but would briefly but would lift bilateral some antigravity. Normal bulk and tone. Cerebellum:Unable to assess. Sensation: Unable to assess. Reflexes (right/left): 1+ throughout. Plantars are mute bilaterally. Results - Laboratory Findings CBC and BMP: 11/14/21 11:08 11/17/21 07:35 Abnormal Lab Findings: Abnormal Labs 11/14/21 11/14/21 11/14/21 11:08 11:08 11:08 MCHC 29.8 L Plt Count 475 H Lymphocytes # 0.7 L PT 12.8 H INR 1.2 H D-Dimer Potassium 5.3 H Chloride 110 H Carbon Dioxide 19 L Creatinine Glucose 102 H POC Glucose (mg/dL) Alkaline Phosphatase 140 H Urine Protein Urine Nitrite Urine Bacteria Urine Mucus 11/14/21 11/14/21 11/15/21 11:10 16:40 07:33 MCHC Plt Count Lymphocytes # PT INR D-Dimer Potassium Chloride Carbon Dioxide Creatinine Glucose 110 H POC Glucose (mg/dL) 105 H Alkaline Phosphatase Urine Protein Trace H Urine Nitrite Positive H Urine Bacteria Rare H Urine Mucus Rare H 11/16/21 11/17/21 12:57 07:35 MCHC Plt Count Lymphocytes # PT INR D-Dimer 1.49 H Potassium Chloride Carbon Dioxide Creatinine 1.10 H Glucose POC Glucose (mg/dL) Alkaline Phosphatase Urine Protein Urine Nitrite Urine Bacteria Urine Mucus Assessment and Plan Assessment: Altered mental status. Encephalopathy of unknown etiology. Possibly component of medication effect (Haldol) . Rule out acute to subacute ischemic stroke. History of stroke 02/2021 ( right medial thalamus/aqueduct region) History of colon cancer status post colectomy and chemotherapy is in remission Atrial flutter/fibrillation on eliquis Brief asystole requiring CPR for 1 minute on 09/2021 Congestive heart failure Chronic anxiety/depression COPD Right ankle fracture s/p closed reduction and placement of splint. Plan: Ordered CT head. Ordered routine EEG Ordered TSH, vitamin B12, folate. Q4 hour neuro checks Pulmonary team is on board. We'll defer the rest of medical management to primary team The plan is discussed with her nurse. Saji Ramirez M.D. Neuro-Hospitalist Time with Patient: Greater than 30
--- NOTE | 2021-11-17 18:01 | EEG ---
ELECTROENCEPHALOGRAM REPORT DATE OF SERVICE: 11/17/2021 CLINICAL HISTORY: This is a 71-year-old woman with altered mental status. The video EEG is obtained to evaluate for seizure epileptiform activity. RELEVANT MEDICATION: The patient is not on any antiepileptic drugs. EEG TYPE: A routine 21-channel EEG is performed with video using the 10/20 electrode placement system. DESCRIPTION: Awake and drowsiness are obtained. During awake state, the background consists of 5 to 6 hertz nonrhythmic theta activity intermixed with delta activity. At times the background consists of intermittent 10 to 10.5 hertz activity. There is no physiological stage II sleep architecture. There is no focal slowing. Interictal and ictal is none. ACTIVATION PROCEDURE: Photic stimulation and hyperventilation are not performed. CLINICAL INTERPRETATION: This is an abnormal routine EEG. The background slowing is suggestive of moderate encephalopathy. There is no focal slowing, epileptiform discharge or seizure on the EEG. Clinical correlation is recommended. MARTHA / YOLANDA: [id number] / MTDD
--- NOTE | 2021-11-17 18:34 | CT ---
EXAMINATION TYPE: CT brain wo con DATE OF EXAM: 11/17/2021 COMPARISON: 03/04/2021 HISTORY: Altered mental status CT DLP: mGycm Automated exposure control for dose reduction was used. There is some cerebral cortical atrophy. There is mild hypodensity in the periventricular white matte r. There is no mass effect or midline shift. No sign of intracranial hemorrhage. There is normal aera tion of the mastoid sinuses. The calvarium is intact. IMPRESSION: Cerebral atrophy and chronic small vessel ischemia. No acute intracranial abnormality. No change.
[2021-11-17 20:38] LABS: T4, Free (Free Thyroxine) 1.99 ng/dL (0.78-2.19)
[2021-11-17] MEDS: ATORVASTATIN 40 MG TAB PO SCH (20:45)
[2021-11-17] MEDS ORDERED: QUEtiapine 25 MG TAB PO SCH (21:00)
[2021-11-18] MEDS: hydrALAZINE HCL 25 MG TAB PO SCH (08:02)
[2021-11-18] MEDS ORDERED: FUROSEMIDE 10 MG/ML 4 ML VIAL IV SCH (09:00)
[2021-11-18] MEDS: IPRATROPIUM 0.5 MG/2.5 ML NEBU INHALATION SCH ×4 (09:07→21:42)
[2021-11-18] MEDS: SYMBICORT 80-4.5 MCG INHALER INHALATION SCH ×2 (09:07→21:43)
--- NOTE | 2021-11-18 10:09 | P.PN ---
Subjective Progress Note Date: 11/18/21 This is a 71-year-old female patient with known history of COPD and previous history of colon cancer with a previous colectomy and chemotherapy and the patient is still in remission. 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 The patient has history of atrial flutter and the patient has been on long-term anticoagulation. The patient was in the hospital on 09/28/2021 for a fall and she had a close fracture of the ankle. She had bimalleolar ankle fracture. She was taken to the operating room and the patient had a brief asystole and she required CPR for a total of 1 minutes and following that, the surgery was postponed and the patient was brought into the intensive care unit. At that point, she was monitored in the ICU for a few days without any cardiac events. Cardiology saw the patient and cleared the patient after undergoing a echocardiogram and a cardiac catheterization. The cardiac catheterization was done on 10/01/2021 preoperatively and the patient had no evidence of any ischemic coronary artery disease. The troponins were nonelevated. The patient was ultimately discharged to rehabilitation. The patient is coming back to the hospital and she got admitted yesterday through the emergency department because of altered mental status. The patient discharged home comfortable was at the rehab and she was discharged home of and she was at home for almost a week and she was progressively deteriorating with diminished oral intake and decreased fluid intake and the stated that she was acting more confused. For that reason she was brought in. She has no fever or chills. No nausea or vomiting. No sweats. She stated that food d oesn't taste good and she hasn't been eating at all. In the emergency, the patient a white second of 8.8 with hemoglobin 12.4 and platelets of 475 and sodium was at 140 with a serum bicarb of 19 and a BUN of 10 with a creatinine of 0.99. The liver function tests were normal. The patient had an AST of 36, ALT of 20 alk phos of 140. The patient had a d-dimer of 1.49. UA showed trace protein, otherwise negative. Urine drug screen was negative. Coagulation profile was within normal limits. ProBNP level was 4410 and ammonia level was less than 9. CAT scan of the chest was done and this was a CTA and it showed no evidence of any pulmonary embolism. There was some bilateral lower lobe pul monary infiltrates and atelectasis with right-sided pleural effusion and there was cardiomegaly and this obviously raises the concern for CHF. There was some mild right sided bronchial adenopathy, thought to be likely benign. The CTA also showed some background emphysema with upper lobe predominance. Some compressive atelectasis in the right lung base. Today on today's evaluation 11/18/2021, the patient is lethargic and she is arousable and she is awake and she is following simple commands. She was able to state the location and the year. No focal neurological deficit and the CAT scan of the brain that was done yesterday showed chronic changes without any acute abnormalities. The patient was seen by neurology. The patient is not having any seizure activity. No headaches. No neck stiffness. Pro-calcitonin level is low. Cultures are negative thus far. The patient is diuresing with IV Lasix. The patient was seen by neurology and EEG of the brain was also done that showed no acute abnormalities. Neurology thought that this was an encephalopathy possibly medication induced. The recommendation was to continue to monitor. Clinically improved compared to yesterday. Objective - Vital Signs Vital signs: Vital Signs Temp 96.8 F L 11/17/21 20:00 Pulse 45 L 11/18/21 09:17 Resp 18 11/18/21 08:00 BP 121/58 11/18/21 03:23 Pulse Ox 96 11/18/21 09:08 FiO2 Intake & Output 11/17/21 11/18/21 11/18/21 18:59 06:59 18:59 Intake Total 20 240 Output Total 1000 Balance -980 240 Intake: IV 20 Invasive Line 2 20 Oral 240 Output: Urine 1000 Other: Voiding Method Diaper Diaper Diaper Incontinent Incontinent Incontinent External Catheter External Catheter External Catheter # Voids 2 - Exam GENERAL EXAM: Lethargic, quite sleepy is arousable, 71-year-old white female, on 4 L of oxygen pulse ox of 95%, HEAD: Normocephalic/atraumatic. EYES: Normal reaction of pupils, equal size. Conjunctiva pink, sclera white. NOSE: Clear with pink turbinates. THROAT: No erythema or exudates. NECK: No masses, no JVD, no thyroid enlargement, no adenopathy. CHEST: No chest wall deformity. Symmetrical expansion. LUNGS: Equal air entry with no crackles, wheeze, rhonchi or dullness. CVS: Regular rate and rhythm, normal S1 and S2, no gallops, no murmurs, no rubs ABDOMEN: Soft, nontender. No hepatosplenomegaly, normal bowel sounds, no guarding or rigidity. EXTREMITIES: No clubbing, no edema, no cyanosis, 2+ pulses and upper and lower extremities. MUSCULOSKELETAL: Muscle strength and tone normal. SPINE: No scoliosis or deformity SKIN: No rashes CENTRAL NERVOUS SYSTEM: Lethargic, sleepy, arousable, no focal neurological deficit and she is much more awake compared to yesterday PSYCHIATRIC: Unable to obtain - Labs CBC & Chem 7: 11/14/21 11:08 11/17/21 07:35 Labs: Abnormal Lab Results - Last 24 Hours (Table) 11/17/21 Range/Units 07:35 TSH 5.900 H (0.465-4.680) mIU/L Assessment and Plan Plan: 1 altered mental status. The patient remains quite lethargic yet arousable. Exact cause is not clear this point in time. The patient has had previous history of a thalamic stroke/midbrain stroke. No seizure. Noted at this point in time. Neurologic exam is nonfocal.the patient was quite agitated overnight. She was given Haldol and at the time of my evaluation this morning, the patient was sedated. Nevertheless, her neuro exam was nonfocal. She obviously needs further to evaluation. Today's evaluation of 11/18/2021, more awake and arousable and no agitation. She is alert and oriented 2 at least. No focal neurological deficits. EEG showed encephalopathy. Vascular brain showed no acute abnormalities. Neurologist on the case. Rule out drug induced encephalopathy. 2 CHF with elevated proBNP level and small bilateral pleural effusion right more than left, underlying pneumonia is doubtful 3 right ankle bimalleolar fracture, the patient underwent closed reduction and placement of the splint 4 history of a acute cardiac arrest, asystole, exact cause is not clear. I believe this occurred preoperatively, it could have been a vagal response. Troponins are minimally elevated at this point in time the patient is free of any chest pain. No acute ST segment elevation or depression the patient continues to be in atrial flutter. Barrel Turner Cleared the patient back in September 2021. 5 COPD , maintained on Trelegy Ellipta on outpatient basis 6 history of colon cancer 7 chronic anxiety/depression 8 hypertension 9 chronic atrial flutter 10 non anion gap metabolic acidosis, recovered 11 degenerative arthritis 12 hypertension Plan Consult neurology is appreciated CAT scan of the brain, noncontrast is noted and there are no acute abnormalities Check a pro-calcitonin level and the level was low Check blood cultures are negative thus far No need for empiric antibiotic coverage at this point in time Change the Lasix to oral 40 mg every 24 hours Continue anticoagulation with with Eliquis 5 mg by mouth twice a day Resume Trelegy Ellipta from home Put the patient on albuterol nebulized treatments 3 times a day oxygen at 4 L per minute nasal cannula Provide an incentive spirometer
--- NOTE | 2021-11-18 10:20 | P.CON ---
Consult Note - . Consult date: 11/18/21 Assessment/Plan:: Clinical Problems: Major neurocognitive disorder with delirium and behavioral disturbances Interim history: Reviewed the medical record and kept to interview the patient. She was markedly sedated but arousable. One-to-one sitter was present. She received 2 mg of Haldol yesterday. She has no memory of what occurred yesterday. Nursing reports that she has had no further episodes of behavioral dyscontrol or impulsiveness. Note that her confusion, agitation and aggressive behavior preceded receiving antipsychotic medication. Mental status exam: She presented as a lethargic elderly woman who is arousable but markedly sedated. Assessment: She is less agitated and confused but again, markedly sedated was likely from the Haldol. Plan: Continue delirium precautions recommended with patient including - avoiding use of narcotics and PLUG WIRER sedatives, limit anticholinergic medications when possible, frequent re-orientation, minimize use of restraints, open window shades during the day and close them at night. Continue taper of bupropion. Continue Haldol 2 mg by mouth or IM for agitation only for agitation or aggressiveness does not respond to other interventions.
[2021-11-18] MEDS: OXYBUTYNIN 10 MG TAB.ER.24 PO SCH (11:10)
[2021-11-18] MEDS: ISOSORBIDE MONONITRATE ER 30 MG TAB.ER.24H PO SCH (11:10)
[2021-11-18] MEDS: POTASSIUM CHLORIDE ER 20 MEQ TAB.ER PO SCH (11:11)
[2021-11-18] MEDS: PILOCARPINE 5 MG TAB PO SCH ×3 (11:11→20:42)
[2021-11-18] MEDS: PARoxetine 20 MG TAB PO SCH (11:11)
[2021-11-18] MEDS: APIXABAN 5 MG TAB PO SCH ×2 (11:12→20:42)
[2021-11-18] MEDS: PSYLLIUM HUSK 100% 6 GM PACKET PO SCH ×2 (11:12→20:41)
[2021-11-18] MEDS: buPROPion XL 150 MG TAB.ER.24H PO SCH (11:13)
[2021-11-18] MEDS: hydrALAZINE HCL 50 MG TAB PO SCH ×3 (11:13→20:41)
--- NOTE | 2021-11-18 12:00 | P.PN ---
Subjective Progress Note Date: 11/18/21 The patient is seen at bedside and feels is doing better. Objective - Vital Signs Vital signs: Vital Signs Temp 97.8 F 11/18/21 08:00 Pulse 45 L 11/18/21 09:17 Resp 18 11/18/21 08:00 BP 126/60 11/18/21 08:00 Pulse Ox 96 11/18/21 09:08 FiO2 Intake & Output 11/17/21 11/18/21 11/18/21 18:59 06:59 18:59 Intake Total 20 240 Output Total 1000 300 Balance -980 240 -300 Intake: IV 20 Invasive Line 2 20 Oral 240 Output: Urine 1000 300 Other: Voiding Method Diaper Diaper Diaper Incontinent Incontinent Incontinent External Catheter External Catheter External Catheter # Voids 2 - Exam GENERAL: The patient is lying in bed and is not in acute distress. NEUROLOGICAL: Higher mental function: The patient is awake, alert, oriented to self. She stated the month is September and year is 2020. She correctly stated she was in hospital and correctly chose the right one with options. She is following simple commands. She is following simple commands. No aphasia and no neglect. Cranial nerves: The pupils are round, equal and reactive to light. Visual wray are full to confrontation throughout. Extraocular movement is has has mild nystagmus looking all way to right or left (mostly left). Seems has ?mild restriction looking fully to right and left . Facial sensation is normal to touch throughout. The facial strength is normal throughout. Tongue is midline and moved [id number] without any difficulty. No dysarthria is noted. Shoulder shrug is normal bilaterally. Motor: The strength is 5 over 5 throughout [place]. While lowers are normal. Cerebellum: Normal finger to nose heel to chin bilaterally. Sensation: Sensation is normal to touch throughout. SOME OF THE WORK-UP: TSH is 5.90 but the free T4 is 1.99 Vitamin B12 is 554 Serum folate is 9.20. CT of the head is reported as cerebral atrophy and chronic small vessel ischemia. No acute intracranial abnormality. No change Routine EEG is abnormal. The back was SUGGESTIVE of moderate encephalopathy. There is no focal slowing, epileptiform discharges or seizure on the EEG - Labs CBC & Chem 7: 11/14/21 11:08 11/17/21 07:35 Labs: Abnormal Lab Results - Last 24 Hours (Table) 11/17/21 Range/Units 07:35 TSH 5.900 H (0.465-4.680) mIU/L Assessment and Plan Assessment: Altered mental status. Encephalopathy unknown but seems medication induced ---mentation improving History of stroke 02/2021 ( right medial thalamus/aqueduct region) History of colon cancer status post colectomy and chemotherapy is in remission Atrial flutter/fibrillation on eliquis Brief asystole requiring CPR for 1 minute on 09/2021 Congestive heart failure Chronic anxiety/depression COPD Right ankle fracture s/p closed reduction and placement of splint. Plan: If patient continues to be altered or any worsening of neurological condition, recommend MRI Brain. For now clinically she is improving. Q4 hour neuro checks Pulmonary team is on board. We'll defer the rest of medical management to primary team The plan is discussed with her nurse. Saji Ramirez M.D. Neuro-Hospitalist Time with Patient: Less than 30
--- NOTE | 2021-11-18 16:17 | P.PN ---
Subjective Progress Note Date: 11/18/21 TORY OF PRESENT ILLNESS: This is a 71-year-old female with a past medical history significant for atrial fibrillation, hypertension, COPD, hyperlipidemia, and recent right ankle fract ure. Patient follows in the office with Dr. Alston. We have been asked to see the patient in consultation for bradycardia. Patient examined at the bedside. Patient states she presented to the hospital because she was confused about which medication she was supposed to be taking. According to the ER no, the patient has been confused and had decreased oral intake at home. The patient currently denies chest pain or pressure. She denies shortness of breath. Her main complaint this morning is that she feels cold. Telemetry reviewed revealing atrial flutter with a heart rate in the 40s. The patient is not on any AV whitney blocking agents. She denies dizziness or lightheadedness. Patient's blood pressure was elevated this morning and hydralazine was added to her medication regimen. The patient was also found to be in mild CHF. She was given a dose of IV Lasix. 11/17/2021: This patient has had episodes of agitation and anxiety. Seen by psychiatrist and has been treated with Haldol. Patient denies any chest pain and very anxious to go home. Her blood pressure seemed to better controlled with higher dose of hydralazine. Her heart rate is in the 50s and continues to be in atrial fibrillation. At this point patient doesn't appear to be in acute distress. Continue current medical therapy. Increase activity. Further recommendation will depend upon the clinical course Objective - Vital Signs Vital signs: Vital Signs Temp 97.8 F 11/18/21 08:00 Pulse 44 L 11/18/21 14:00 Resp 18 11/18/21 14:00 BP 126/60 11/18/21 08:00 Pulse Ox 96 11/18/21 09:08 FiO2 Intake & Output 11/17/21 11/18/21 11/18/21 18:59 06:59 18:59 Intake Total 20 240 Output Total 1000 300 Balance -980 240 -300 Intake: IV 20 Invasive Line 2 20 Oral 240 Output: Urine 1000 300 Other: Voiding Method Diaper Diaper Diaper Incontinent Incontinent Incontinent External Catheter External Catheter External Catheter # Voids 2 - Exam GENERAL EXAM: Patient is alert and anxious to leave the hospital HEENT: Normocephalic. Normal reaction of pupils, equal size, normal range of extraocular motion. No erythema or exudates in the throat. NECK: No masses, no nuchal rigidity. CHEST: No chest wall deformity. LUNGS: Equal air entry with no crackles or wheeze. HEART: S1 and S2 normal with no audible mumurs or gallops. Regular rhythm, femorals equal on both sides.. ABDOMEN: No hepatosplenomegaly, normal bowel sounds, no guarding or rigidity. SKIN: No rashes CENTRAL NERVOUS SYSTEM: No focal deficits. EXTREMITIES: No cyanosis, clubbing or edema. - Labs CBC & Chem 7: 11/14/21 11:08 11/17/21 07:35 Labs: Abnormal Lab Results - Last 24 Hours (Table) 11/17/21 Range/Units 07:35 TSH 5.900 H (0.465-4.680) mIU/L Microbiology - Last 24 Hours (Table) 11/17/21 10:33 Blood Culture - Preliminary Blood No Growth after 24 hours 11/17/21 10:33 Blood Culture - Preliminary Blood No Growth after 24 hours Assessment and Plan (1) Acute diastolic CHF (congestive heart failure) Current Visit: Yes Status: Acute Code(s): I50.31 - ACUTE DIASTOLIC (CONGESTIVE) HEART FAILURE SNOMED Code(s): 742593420 (2) Bradycardia Current Visit: Yes Status: Acute Code(s): R00.1 - BRADYCARDIA, UNSPECIFIED SNOMED Code(s): 12316254 (3) Atrial flutter Current Visit: No Status: Acute Code(s): I48.92 - UNSPECIFIED ATRIAL FLUTTER SNOMED Code(s): 7045843 (4) COPD (chronic obstructive pulmonary disease) Current Visit: No Status: Acute Code(s): J44.9 - CHRONIC OBSTRUCTIVE PULMONARY DISEASE, UNSPECIFIED SNOMED Code(s): 96839127 (5) Agitation Current Visit: Yes Status: Acute Code(s): R45.1 - RESTLESSNESS AND AGITATION SNOMED Code(s): 204498624 Plan: Continue current medical therapy. Increase activity. Possible discharge within next 24-48 hours
--- NOTE | 2021-11-18 18:24 | P.PN ---
Subjective Progress Note Date: 11/18/21 Hospital course: 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 Chronic stable medical conditions include GERD, hypertension, colon cancer, seizure, sciatica, COPD. February 2021 - right brainstem thalamic stroke. Atrial flutter-fibrillation on eliquis. Was in the hospital from September 27 through October 08 with right ankle fracture. was taken to the OR Was in atrial flutter. In the perioperative period patient went into a asystole. 1 minute of CPR. Surgery was postponed. Taken to the IC U. Had atrial flutter and possible V. tach. cardiac catheterization.- No significant disease. chronic dry mouth.- Salagen was started. Patient going to pulmonary edema. Received IV Lasix. Was [facility] on 2 L [facility] [place]. Patient has been home for one week. As per the not taking her medications. Sometimes a bit confused. Decreased appetite. Feels dehydrated. Her ankle has been healing well. himself is a bit handicapped and finds it difficult to manage. No fever no chills. No burning in the urine. Tired. Brace on the right foot. Admitted with, acute on chronic CHF, received IV Lasix. Atrial flutter fibrillation rate controlled on present 40s. November 15: Oral intake fair. Able to come indicated. Breathing better. Fluid restriction 2000 mL. Because of decreased ventricular rate will consult cardiology. Discussed with patient. Received IV Lasix yesterday. 11/16/2021 Patient is seen in follow-up this morning and awaiting cardiology consultation as patient's heart rate has been in the low 40s to 50s. Patient initially admitted with increasing shortness of breath and feeling unwell with decreased appetite and some confusion. Patient reports to having a history of COPD and uses nebulizers but was not requiring oxygen and is currently maintained on 2 L via nasal cannula. Will add d-dimer and if positive will order CT angios of the chest to rule out pulmonary embolism. Patient currently denies chest pain or palpitations. Patient is afebrile. No reports of nausea or vomiting noted and patient is tolerating diet. Psychiatry was also consulted as patient is currently on some psychiatric medications for increased anxiety and needs evaluation. Patient denies any suicidal ideation or thoughts of harming herself or others. 11/17/2021 Patient is seen in follow-up this morning somnolent and obtunded and has recently just received IM Haldol as apparently per nursing staff patient became increasingly agitated and aggressive and attempted to get out of bed and remove her lower extremity brace and was demanding to leave the hospital. Patient was not alert and oriented and is being followed by psychiatry recommending weaning Wellbutrin. Seroquel was added as needed at night although this was discontinued by psychiatry. Cardiology and pulmonary following patient did receive a dose of IV Lasix today and cardiology also maximizing medical management and no plans for pacemaker at this time. Patient continues on 2 L via nasal cannula and does not wear oxygen in the outpatient setting. Patient's d-dimer was elevated CTA not suggestive of pulmonary embolism but was showing some pleural effusion. Per family patient has been becoming more confused most recently status post her ankle fracture surgery hence the reason for psychiatric evaluation. Psychiatry is following. 11/18/2021 Patient is seen today with sister at the bedside. Multiple medical consultations following including neuro, cardio, pulm, and psychiatry. Patient is stable from cardiology standpoint and no plans for pacemaker placement at this point and will closely monitor outpatient. Adjustments to welbutrin being done and weaning per psych. Patient with less agitation and more calm today. Patient continues to be anxious about being in the hospital and eager to go home. Has not required haldol since yesterday. Patient is afebrile and denies chest pain or shortness of breath. Continued on 4L via NC at this time and will perform home 02 eval. Patient may require home oxygen to manage COPD and CHF. Wean FI02 as tolerated. Active Medications Acetaminophen (Acetaminophen Tab 325 Mg Tab) 650 mg PO Q6HR PRN PRN Reason: Mild Pain or Fever > 100.5 Apixaban (Apixaban 5 Mg Tab) 5 mg PO BID MELINA; Protocol Last Admin: 11/18/21 11:12 Dose: 5 mg Atorvastatin Calcium (Atorvastatin 40 Mg Tab) 40 mg PO HS MELINA Last Admin: 11/17/21 20:45 Dose: 40 mg Budesonide/Formoterol Fumarate (Symbicort 80-4.5 Mcg Inhaler) 2 puff INHALATION RT-BID MELINA Last Admin: 11/18/21 09:07 Dose: 2 puff Bupropion HCl (Bupropion Xl 150 Mg Tab.Er.24h) 150 mg PO DAILY [facility] Stop: 11/19/21 23:59 Last Admin: 11/18/21 11:13 Dose: 150 mg Calcium Carbonate/Glycine (Calcium Carbonate 500 Mg Chewable) 1,000 mg PO Q4HR PRN PRN Reason: Dyspepsia Diphenoxylate HCl/Atropine (Diphenox-Atrop 2.5-0.025 Mg 1 Each Tab) 2 each PO BID PRN PRN Reason: Diarrhea Furosemide (Furosemide 20 Mg Tab) 20 mg PO DAILY [facility] Haloperidol (Haloperidol 2 Mg Tab) 2 mg PO Q4H PRN PRN Reason: Agitation or Acute Psychosis Haloperidol Lactate (Haloperidol Lactate 5 Mg/Ml 1 Ml Vial) 2 mg IM Q4HR PRN PRN Reason: Agitation or Acute Psychosis Last Admin: 11/17/21 14:34 Dose: 2 mg Hydralazine HCl (Hydralazine Hcl 50 Mg Tab) 50 mg PO TID [facility] Last Admin: 11/18/21 15:25 Dose: 50 mg Ipratropium [place] (Ipratropium 0.5 Mg/2.5 Ml Nebu) 0.5 mg INHALATION RT-QID [facility] Last Admin: 11/18/21 16:41 Dose: 0.5 mg Isosorbide Mononitrate (Isosorbide Mononitrate Er 30 Mg Tab.Er.24h) 30 mg PO DAILY [facility] Last Admin: 11/18/21 11:10 Dose: 30 mg Lactulose (Lactulose 20 Gm/30 Ml Cup) 20 gm PO DAILY PRN PRN Reason: Constipation Naloxone HCl (Naloxone 0.4 Mg/Ml 1 Ml Vial) 0.2 mg IV Q2M PRN PRN Reason: Opioid Reversal Ondansetron HCl (Ondansetron 4 Mg/2 Ml Vial) 4 mg IVP Q8HR PRN PRN Reason: Nausea And Vomiting Oxybutynin Chloride (Oxybutynin 10 Mg Tab.Er.24) 10 mg PO DAILY [facility] Last Admin: 11/18/21 11:10 Dose: 10 mg Paroxetine HCl (Paroxetine 20 Mg Tab) 40 mg PO DAILY [facility] Last Admin: 11/18/21 11:11 Dose: 40 mg Pilocarpine HCl (Pilocarpine 5 Mg Tab) 5 mg PO TID [facility] Last Admin: 11/18/21 15:24 Dose: 5 mg Potassium Chloride (Potassium Chloride Er 20 Meq Tab.Er) 20 meq PO DAILY [facility] Last Admin: 11/18/21 11:11 Dose: 20 meq Psyllium Hydrophilic Mucilloid (Psyllium Husk 100% 6 Gm Packet) 6 gm PO BID [facility] Last Admin: 11/18/21 11:12 Dose: Not Given Physical examination: GENERAL: This is a 71-year-old female awake, alert and oriented 2-3, continues to be anxious, well-developed, well-nourished EYES: Pupils equal. Conjunctiva normal. HEENT: External appearance of nose and ears normal, oral cavity grossly normal. NECK: JVD not raised; masses not palpable. HEART: S1, S2 muffled LUNGS: Diminished breath sounds bilaterally with no wheezing or rhonchi noted, no crackles noted ABDOMEN: Soft, non-tender, positive bowel sounds, no masses palpable. PSYCH: Alert and oriented x2-3; anxious, less agitated MUSCULOSKELETAL: No Clubbing/cyanosis;muscles-grossly intact. OA. Right foot in a splint status post surgical intervention Assessment: Acute on chronic congestive heart failure, with preserved ejection fraction, acute exacerbation Elevated d-dimer, ruled out PE Altered mental status, etiology unknown possibly a component of toxic encephalopathy and also hospital-acquired delirium right pleural effusion Persistent Atrial fibrillation/typical flutter slow ventricular rate Recent right ankle trimalleolar fracture secondary to fall with recent closed reduction with Dr. John in September 2021 COPD, not in exacerbation Former smoker Chronic xerostomia Osteoarthritis Hypertension Anxiety/depression GI prophylaxis DVT prophylaxis Full code Plan: Recommend to continue with breathing inhalational treatments. Pro-calcitonin was negative and blood cultures remain negative, afebrile Neurology evaluated the patient and following and ct brain and eeg done and was negative. EEG was abnormal with no epileptiform activity noted. Cardiology following for boogie cardia/ aflutter, CHF exacerbation, transitioned to oral lasix Patient continues on 02 via NC at 2 liters and recommend to wean as tolerated and may need home 02 evaluation D-dimer positive and no evidence of PE noted Recommend repeat am labs Recommend to wean FI02 as tolerated and will do home 02 evaluation. Continue 2000cc fluid restriction Psychiatry following and appreciate input and recommendations on medications, avoid narcotic and DRY PAN FEEDER agents and multiple medications have been discontinued and patient is to continue with IM or by mouth Haldol as needed Recommend frequent reorientation and having the windows open and family at the bedside to assist with orientation of the patient. Family at the bedside and questions and concerns were answered and also encouraged family to remain present at the bedside for frequent reorientation. Patient less agitated today and has not required haldol since yesterday. Prognosis is guarded The impression and plan of care has been dictated by Lynsey Rogers Nurse Jaxon novoa as directed. Dr. Chacho MD I have performed a history and examination and MDM of this patient, discussed the same with the dictator, and agree with the dictator's assessment and plan as written ,documented as a scribe. Based on total visit time, I have performed more than 50% of the visit. Objective - Vital Signs Vital signs: Vital Signs Temp 96.8 F L 11/17/21 20:00 Pulse 50 L 11/18/21 09:08 Resp 18 11/18/21 03:23 BP 121/58 11/18/21 03:23 Pulse Ox 96 11/18/21 09:08 FiO2 Intake & Output 11/17/21 11/18/21 11/18/21 18:59 06:59 18:59 Intake Total 20 240 Output Total 1000 Balance -980 240 Intake: IV 20 Invasive Line 2 20 Oral 240 Output: Urine 1000 Other: Voiding Method Diaper Diaper Incontinent Incontinent External Catheter External Catheter # Voids 2 - Labs CBC & Chem 7: 11/14/21 11:08 11/17/21 07:35 Labs: Abnormal Lab Results - Last 24 Hours (Table) 11/17/21 Range/Units 07:35 TSH 5.900 H (0.465-4.680) mIU/L
[2021-11-18] MEDS: ATORVASTATIN 40 MG TAB PO SCH (20:42)
[2021-11-18] MEDS ORDERED: ALPRAZolam 0.5 MG TAB PO STA (22:57)
[2021-11-19] MEDS: IPRATROPIUM 0.5 MG/2.5 ML NEBU INHALATION SCH ×4 (07:41→21:41)
[2021-11-19] MEDS: SYMBICORT 80-4.5 MCG INHALER INHALATION SCH ×2 (07:41→21:41)
[2021-11-19] MEDS: PSYLLIUM HUSK 100% 6 GM PACKET PO SCH ×2 (08:18→19:52)
[2021-11-19] MEDS: APIXABAN 5 MG TAB PO SCH ×2 (08:18→19:51)
[2021-11-19] MEDS: FUROSEMIDE 20 MG TAB PO SCH (08:18)
[2021-11-19] MEDS: buPROPion XL 150 MG TAB.ER.24H PO SCH (08:18)
[2021-11-19] MEDS: hydrALAZINE HCL 50 MG TAB PO SCH ×3 (08:19→19:51)
[2021-11-19] MEDS: PARoxetine 20 MG TAB PO SCH (08:19)
[2021-11-19] MEDS: ISOSORBIDE MONONITRATE ER 30 MG TAB.ER.24H PO SCH (08:20)
[2021-11-19] MEDS: POTASSIUM CHLORIDE ER 20 MEQ TAB.ER PO SCH (08:20)
[2021-11-19] MEDS: OXYBUTYNIN 10 MG TAB.ER.24 PO SCH (08:21)
[2021-11-19] MEDS: PILOCARPINE 5 MG TAB PO SCH ×3 (08:21→19:52)
--- NOTE | 2021-11-19 08:23 | XR ---
EXAMINATION TYPE: XR chest 1V portable DATE OF EXAM: 11/19/2021 COMPARISON: X-ray dated 11/16/2021 HISTORY: Shortness of breath TECHNIQUE: Single frontal view of the chest is obtained. FINDINGS: COPD changes, appreciated previously. Left basal linear pulmonary atelectasis. No sizable pleural eff usion or definite pneumothorax. Increased cardiac transverse diameter, pericardial effusion can't be excluded. Aortic atherosclerotic calcifications. Levoscoliosis of the thoracic spine. IMPRESSION: COPD changes and other findings as described above.
--- NOTE | 2021-11-19 09:38 | P.PN ---
Subjective Progress Note Date: 11/19/21 HISTORY OF PRESENT ILLNESS: This is a 71-year-old female with a past medical history significant for atrial fibrillation, hypertension, COPD, hyperlipidemia, and recent right ankle f racture. Patient follows in the office with Dr. Alston. We have been asked to see the patient in consultation for bradycardia. Patient examined at the bedside. Patient states she presented to the hospital because she was confused about which medication she was supposed to be taking. According to the ER no, the patient has been confused and had decreased oral intake at home. The patient currently denies chest pain or pressure. She denies shortness of breath. Her main complaint this morning is that she feels cold. Telemetry reviewed revealing atrial flutter with a heart rate in the 40s. The patient is not on any AV whitney blocking agents. She denies dizziness or lightheadedness. Patient's blood pressure was elevated this morning and hydralazine was added to her medication regimen. The patient was also found to be in mild CHF. She was given a dose of IV Lasix. * EKG reveals atrial flutter with slow ventricular rate * Chest xray slightly improved signs of pulmonary edema/CHF. Suspect a background of COPD. * Laboratory data: WBC 8.8. Hemoglobin 12.4. Platelet count 475. Sodium 139. Potassium 4.3. BUN 11. Creatinine 0.98. Troponin negative 1. ProBNP 4410. * Current home cardiac medications include Lipitor 40 mg at night and Eliquis 5 mg twice a day * Most recent echocardiogram obtained in September 2021 revealed ejection fraction 55-60%, mild aortic stenosis, moderate mitral regurgitation, mild tricuspid regurgitation, mild pulmonary hypertension * Cardiac catheterization history: September 2021 revealing mild nonobstructive coronary artery disease 11/17/2021 Patient examined this morning at the bedside. Patient is slightly confused at the time of examination. Telemetry reveals atrial flutter with a heart rate around 50. She denies any dizziness or lightheadedness. Denies shortness of breath. Denies chest pain or pressure. Blood pressure 161/67. 11/18/2021: This patient has had episodes of agitation and anxiety. Seen by psychiatrist and has been treated with Haldol. Patient denies any chest pain and very anxious to go home. Her blood pressure seemed to better controlled with higher dose of hydralazine. Her heart rate is in the 50s and continues to be in atrial fibrillation. At this point patient doesn't appear to be in acute distress. Continue current medical therapy. Increase activity. Further recommendation will depend upon the clinical course 11/19/2021 Patient examined this morning at the bedside. Patient denies chest pain or pressure. She denies shortness of breath. Telemetry reveals atrial fibrillation with heart rate in the 50s. Patient's blood pressure has improved with a systolic of 111 this morning. PHYSICAL EXAM: VITAL SIGNS: Reviewed. GENERAL: Well-developed in no acute distress. HEENT: Head is normocephalic. Pupils are equal, round. Sclerae anicteric. Mucous membranes of the mouth are moist. Neck supple. No JVD or thyromegaly LUNGS: Respirations even and unlabored. Lungs essentially clear to auscultation bilaterally. HEART: Bradycardic. Irregular rate and rhythm. S1 and S2 heard. Systolic murmur noted. EXTREMITIES: Normal range of motion. No clubbing or cyanosis. Peripheral pulses intact. Trace lower extremity edema ASSESSMENT: Acute heart failure with preserved ejection fraction Persistent atrial fibrillation/typical atrial flutter with slow ventricular rate Hypertension Hyperlipidemia COPD Recent right ankle fracture PLAN: Continue current cardiac medications Continue to monitor telemetry Avoid AV whitney blocking agents No plans for permanent pacemaker at this time Patient is stable from a cardiac standpoint Further recommendations pending patient course Nurse practitioner note has been reviewed by physician. Signing provider agrees with the documented findings, assessment, and plan of care. Objective - Vital Signs Vital signs: Vital Signs Temp 98.3 F 11/19/21 08:27 Pulse 55 L 11/19/21 08:27 Resp 16 11/19/21 08:27 BP 118/56 11/19/21 08:27 Pulse Ox 94 L 11/19/21 08:27 FiO2 Intake & Output 11/18/21 11/19/21 11/19/21 18:59 06:59 18:59 Intake Total 120 240 Output Total 300 250 200 Balance -180 -250 40 Weight 80 kg Intake: Oral 120 240 Output: Urine 300 250 200 Other: Voiding Method Diaper Diaper Incontinent Incontinent External Catheter External Catheter # Bowel Movements 1 - Labs CBC & Chem 7: 11/14/21 11:08 11/17/21 07:35 Labs: Microbiology - Last 24 Hours (Table) 05/24/22 10:33 Blood Culture - Preliminary Blood No Growth after 24 hours 11/17/21 10:33 Blood Culture - Preliminary Blood No Growth after 24 hours
--- NOTE | 2021-11-19 10:10 | P.PN ---
Subjective Progress Note Date: 11/19/21 This is a 71-year-old female patient with known history of COPD and previous history of colon cancer with a previous colectomy and chemotherapy and the patient is still in remission. 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 The patient has history of atrial flutter and the patient has been on long-term anticoagulation. The patient was in the hospital on 09/28/2021 for a fall and she had a close fracture of the ankle. She had bimalleolar ankle fracture. She was taken to the operating room and the patient had a brief asystole and she required CPR for a total of 1 minutes and following that, the surgery was postponed and the patient was brought into the intensive care unit. At that point, she was monitored in the ICU for a few days without any cardiac events. Cardiology saw the patient and cleared the patient after undergoing a echocardiogram and a cardiac catheterization. The cardiac catheterization was done on 10/01/2021 preoperatively and the patient had no evidence of any ischemic coronary artery disease. The troponins were nonelevated. The patient was ultimately discharged to rehabilitation. The patient is coming back to the hospital and she got admitted yesterday through the emergency department because of altered mental status. The patient discharged home comfortable was at the rehab and she was discharged home of and she was at home for almost a week and she was progressively deteriorating with diminished oral intake and decreased fluid intake and the stated that she was acting more confused. For that reason she was brought in. She has no fever or chills. No nausea or vomiting. No sweats. She stated that food d oesn't taste good and she hasn't been eating at all. In the emergency, the patient a white second of 8.8 with hemoglobin 12.4 and platelets of 475 and sodium was at 140 with a serum bicarb of 19 and a BUN of 10 with a creatinine of 0.99. The liver function tests were normal. The patient had an AST of 36, ALT of 20 alk phos of 140. The patient had a d-dimer of 1.49. UA showed trace protein, otherwise negative. Urine drug screen was negative. Coagulation profile was within normal limits. ProBNP level was 4410 and ammonia level was less than 9. CAT scan of the chest was done and this was a CTA and it showed no evidence of any pulmonary embolism. There was some bilateral lower lobe pul monary infiltrates and atelectasis with right-sided pleural effusion and there was cardiomegaly and this obviously raises the concern for CHF. There was some mild right sided bronchial adenopathy, thought to be likely benign. The CTA also showed some background emphysema with upper lobe predominance. Some compressive atelectasis in the right lung base. Today on today's evaluation 11/18/2021, the patient is lethargic and she is arousable and she is awake and she is following simple commands. She was able to state the location and the year. No focal neurological deficit and the CAT scan of the brain that was done yesterday showed chronic changes without any acute abnormalities. The patient was seen by neurology. The patient is not having any seizure activity. No headaches. No neck stiffness. Pro-calcitonin level is low. Cultures are negative thus far. The patient is diuresing with IV Lasix. The patient was seen by neurology and EEG of the brain was also done that showed no acute abnormalities. Neurology thought that this was an encephalopathy possibly medication induced. The recommendation was to continue to monitor. Clinically improved compared to yesterday. 11/19, the patient is doing well. She is wide awake and following commands and answers questions appropriately. Her mental status seems to be of normalized. No respiratory difficulties. The patient was diuresed adequately. His COPD stable. Her chest x-ray shows improvement in the volume status. Lung bases are more clear and there is no significant blunting of today's evaluation. Overall fluid balance has been negative and the patient was being diuresed with IV Lasix. This morning, the patient is on oral Lasix 20 mg by mouth daily. The patient is also on bronchodilators. The patient is on long-term anticoagulants with Eliquis 5 mg by mouth twice a day. Cardiac rhythm is sa fluuter. No other significant events otherwise for now. Neurology is on the case. The patient remains on 3 L with a pulse ox of 94%. Objective - Vital Signs Vital signs: Vital Signs Temp 98.3 F 11/19/21 08:27 Pulse 55 L 11/19/21 08:27 Resp 16 11/19/21 08:27 BP 118/56 11/19/21 08:27 Pulse Ox 94 L 11/19/21 08:27 FiO2 Intake & Output 0511/19/21 11/19/21 18:59 06:59 18:59 Intake Total 120 240 Output Total 300 250 200 Balance -180 -250 40 Weight 80 kg Intake: Oral 120 240 Output: Urine 300 250 200 Other: Voiding Method Diaper Diaper Incontinent Incontinent External Catheter External Catheter # Bowel Movements 1 - Exam GENERAL EXAM: Lethargic, quite sleepy is arousable, 71-year-old white female, on 3 L of oxygen pulse ox of 95%, HEAD: Normocephalic/atraumatic. EYES: Normal reaction of pupils, equal size. Conjunctiva pink, sclera white. NOSE: Clear with pink turbinates. THROAT: No erythema or exudates. NECK: No masses, no JVD, no thyroid enlargement, no adenopathy. CHEST: No chest wall deformity. Symmetrical expansion. LUNGS: Equal air entry with no crackles, wheeze, rhonchi or dullness. CVS: Regular rate and rhythm, normal S1 and S2, no gallops, no murmurs, no rubs ABDOMEN: Soft, nontender. No hepatosplenomegaly, normal bowel sounds, no guarding or rigidity. EXTREMITIES: No clubbing, no edema, no cyanosis, 2+ pulses and upper and lower extremities. MUSCULOSKELETAL: Muscle strength and tone normal. SPINE: No scoliosis or deformity SKIN: No rashes CENTRAL NERVOUS SYSTEM: Awake and alert and oriented 3, no focal neurological deficit PSYCHIATRIC: normal - Labs CBC & Chem 7: 11/14/21 11:08 11/17/21 07:35 Labs: Microbiology - Last 24 Hours (Table) 11/17/21 10:33 Blood Culture - Preliminary Blood No Growth after 24 hours 11/17/21 10:33 Blood Culture - Preliminary Blood No Growth after 24 hours Assessment and Plan Plan: 1 altered mental status. The patient is fully recovered and the patient's condition is normalized. No focal neurological deficits. No agitation. No symptoms at the bedside. The neuro workup including EEG showed encephalopathy and a CAT scan of the brain showed no acute abnormalities. Scleral and potentially a drug induced encephalopathy/medication induced. 2 CHF with elevated proBNP level and small bilateral pleural effusion right more than left, underlying pneumonia is doubtful, improving on today's chest x-ray 3 right ankle bimalleolar fracture, the patient underwent closed reduction and placement of the splint 4 history of a acute cardiac arrest, asystole, exact cause is not clear. I believe this occurred preoperatively, it could have been a vagal response. Troponins are minimally elevated at this point in time the patient is free of any chest pain. No acute ST segment elevation or depression the patient continues to be in atrial flutter. Workforce Consultant Cleared the patient back in September 2021. 5 COPD , maintained on Trelegy Ellipta on outpatient basis 6 history of colon cancer 7 chronic anxiety/depression 8 hypertension 9 chronic atrial flutter 10 non anion gap metabolic acidosis, recovered 11 degenerative arthritis 12 hypertension Plan monitor mentation Consult neurology is appreciated CAT scan of the brain, noncontrast is noted and there are no acute abnormalities Check a pro-calcitonin level and the level was low Check blood cultures are negative thus far No need for empiric antibiotic coverage at this point in time Continue anticoagulation with with Eliquis 5 mg by mouth twice a day Trelegy Ellipta from home Put the patient on albuterol nebulized treatments 3 times a day oxygen at 2 L per minute nasal cannula Provide an incentive spirometer No active pulmonary issues. The patient was switched to oral Lasix 20 mg by mouth daily. Chest x-ray showing improvement in the volume status. Pro- calcitonin level was low at 0.06.
[2021-11-19] MEDS ORDERED: IPRATROPIUM 0.5 MG/2.5 ML NEBU INHALATION ONE (11:13)
[2021-11-19 14:42] LABS: Calcium 8.8 mg/dL (8.4-10.2); Potassium 4.1 mmol/L (3.5-5.1)
--- NOTE | 2021-11-19 14:42 | P.PN ---
Subjective Progress Note Date: 11/19/21 The patient is seen at bedside and feels she is doing drastically better. She was reading a book early in the morning and felt well and feels back to baseline. Objective - Vital Signs Vital signs: Vital Signs Temp 98.3 F 11/19/21 08:27 Pulse 47 L 11/19/21 11:34 Resp 16 11/19/21 08:27 BP 118/56 11/19/21 08:27 Pulse Ox 94 L 11/19/21 08:27 FiO2 Intake & Output 11/18/21 11/19/21 11/19/21 18:59 06:59 18:59 Intake Total 120 240 Output Total 300 250 200 Balance -180 -250 40 Weight 80 kg Intake: Oral 120 240 Output: Urine 300 250 200 Other: Voiding Method Diaper Diaper Incontinent Incontinent External Catheter External Catheter # Bowel Movements 1 - Exam GENERAL: The patient is lying in bed and is not in acute distress. NEUROLOGICAL: Higher mental function: The patient is awake, alert, oriented to self, place and time. She is following simple commands. She is following simple commands. No aphasia and no neglect. Cranial nerves: The pupils are round, equal and reactive to light. Visual wray are full to confrontation throughout. Extraocular movement is would look throughout without difficulty but some limitation because of cooperation but no nystagmus noted throughout. Facial sensation is normal to touch throughout. The facial strength is normal throughout. Tongue is midline and moved [id number] without any difficulty. No dysarthria is noted. Shoulder shrug is normal bilaterally. Motor: The strength is are normal. Cerebellum: Normal finger to nose heel to chin bilaterally. Sensation: Sensation is normal to touch throughout. SOME OF THE WORK-UP: TSH is 5.90 but the free T4 is 1.99 Vitamin B12 is 554 Serum folate is 9.20. CT of the head is reported as cerebral atrophy and chronic small vessel ischemia. No acute intracranial abnormality. No change Routine EEG is abnormal. The back was SUGGESTIVE of moderate encephalopathy. There is no focal slowing, epileptiform discharges or seizure on the EEG - Labs CBC & Chem 7: 11/14/21 11:08 11/17/21 07:35 Labs: Microbiology - Last 24 Hours (Table) 11/17/21 10:33 Blood Culture - Preliminary Blood No Growth after 24 hours 11/17/21 10:33 Blood Culture - Preliminary Blood No Growth after 24 hours Assessment and Plan Assessment: Encephalopathy seems medication induced ---mentation improved History of stroke 02/2021 ( right medial thalamus/aqueduct region) History of colon cancer status post colectomy and chemotherapy is in remission Atrial flutter/fibrillation on eliquis Brief asystole requiring CPR for 1 minute on 09/2021 Congestive heart failure Chronic anxiety/depression COPD Right ankle fracture s/p closed reduction and placement of splint. Plan: No MRI Brain is needed since patient is back to baseline. Q4 hour neuro checks Pulmonary team is on board. We'll defer the rest of medical management to primary team The plan is discussed with her nurse. No further neurological wok-up. Will sign off. Please reconsult if needed. Saji Ramirez M.D. Neuro-Hospitalist Time with Patient: Less than 30
[2021-11-19] MEDS: ATORVASTATIN 40 MG TAB PO SCH (19:51)
[2021-11-19] MEDS ORDERED: ALPRAZolam 0.5 MG TAB PO ONE (22:08)
[2021-11-20] MEDS: IPRATROPIUM 0.5 MG/2.5 ML NEBU INHALATION SCH ×3 (07:22→15:00)
[2021-11-20] MEDS: SYMBICORT 80-4.5 MCG INHALER INHALATION SCH (07:23)
[2021-11-20 08:10] VITALS: RESP 20
[2021-11-20] MEDS: ISOSORBIDE MONONITRATE ER 30 MG TAB.ER.24H PO SCH (08:15)
[2021-11-20] MEDS: POTASSIUM CHLORIDE ER 20 MEQ TAB.ER PO SCH (08:15)
[2021-11-20] MEDS: FUROSEMIDE 20 MG TAB PO SCH (08:15)
[2021-11-20] MEDS: PSYLLIUM HUSK 100% 6 GM PACKET PO SCH ×2 (08:15→08:22)
[2021-11-20] MEDS: PARoxetine 20 MG TAB PO SCH (08:15)
[2021-11-20] MEDS: APIXABAN 5 MG TAB PO SCH (08:15)
[2021-11-20] MEDS: hydrALAZINE HCL 50 MG TAB PO SCH (08:15)
[2021-11-20] MEDS: PILOCARPINE 5 MG TAB PO SCH (08:16)
[2021-11-20] MEDS: OXYBUTYNIN 10 MG TAB.ER.24 PO SCH (08:16)
--- NOTE | 2021-11-20 09:29 | P.PN ---
Subjective Progress Note Date: 11/20/21 HISTORY OF PRESENT ILLNESS: This is a 71-year-old female with a past medical history significant for atrial fibrillation, hypertension, COPD, hyperlipidemia, and recent right ankle f racture. Patient follows in the office with Dr. Alston. We have been asked to see the patient in consultation for bradycardia. Patient examined at the bedside. Patient states she presented to the hospital because she was confused about which medication she was supposed to be taking. According to the ER no, the patient has been confused and had decreased oral intake at home. The patient currently denies chest pain or pressure. She denies shortness of breath. Her main complaint this morning is that she feels cold. Telemetry reviewed revealing atrial flutter with a heart rate in the 40s. The patient is not on any AV whitney blocking agents. She denies dizziness or lightheadedness. Patient's blood pressure was elevated this morning and hydralazine was added to her medication regimen. The patient was also found to be in mild CHF. She was given a dose of IV Lasix. * EKG reveals atrial flutter with slow ventricular rate * Chest xray slightly improved signs of pulmonary edema/CHF. Suspect a background of COPD. * Laboratory data: WBC 8.8. Hemoglobin 12.4. Platelet count 475. Sodium 139. Potassium 4.3. BUN 11. Creatinine 0.98. Troponin negative 1. ProBNP 4410. * Current home cardiac medications include Lipitor 40 mg at night and Eliquis 5 mg twice a day * Most recent echocardiogram obtained in September 2021 revealed ejection fraction 55-60%, mild aortic stenosis, moderate mitral regurgitation, mild tricuspid regurgitation, mild pulmonary hypertension * Cardiac catheterization history: September 2021 revealing mild nonobstructive coronary artery disease 11/17/2021 Patient examined this morning at the bedside. Patient is slightly confused at the time of examination. Telemetry reveals atrial flutter with a heart rate around 50. She denies any dizziness or lightheadedness. Denies shortness of breath. Denies chest pain or pressure. Blood pressure 161/67. 11/18/2021: This patient has had episodes of agitation and anxiety. Seen by psychiatrist and has been treated with Haldol. Patient denies any chest pain and very anxious to go home. Her blood pressure seemed to better controlled with higher dose of hydralazine. Her heart rate is in the 50s and continues to be in atrial fibrillation. At this point patient doesn't appear to be in acute distress. Continue current medical therapy. Increase activity. Further recommendation will depend upon the clinical course 11/19/2021 Patient examined this morning at the bedside. Patient denies chest pain or pressure. She denies shortness of breath. Telemetry reveals atrial fibrillation with heart rate in the 50s. Patient's blood pressure has improved with a systolic of 111 this morning. 11/20/2021 Patient examined this morning. Patient is sitting up in the chair. Patient denies chest pain or pressure. She denies shortness of breath. Telemetry reveals atrial fibrillation with a heart rate in the 50s. Patient's blood pressure is stable this morning with a reading of 142/70. PHYSICAL EXAM: VITAL SIGNS: Reviewed. GENERAL: Well-developed in no acute distress. HEENT: Head is normocephalic. Pupils are equal, round. Sclerae anicteric. Mucous membranes of the mouth are moist. Neck supple. No JVD or thyromegaly LUNGS: Respirations even and unlabored. Lungs essentially clear to auscultation bilaterally. HEART: Bradycardic. Irregular rate and rhythm. S1 and S2 heard. Systolic murmur noted. EXTREMITIES: Normal range of motion. No clubbing or cyanosis. Peripheral pulses intact. Trace lower extremity edema ASSESSMENT: Acute heart failure with preserved ejection fraction Persistent atrial fibrillation/typical atrial flutter with slow ventricular rate Hypertension Hyperlipidemia COPD Recent right ankle fracture PLAN: Continue current cardiac medications Continue to monitor telemetry Avoid AV whitney blocking agents No plans for permanent pacemaker at this time Patient is stable from a cardiac standpoint Further recommendations pending patient course Nurse practitioner note has been reviewed by physician. Signing provider agrees with the documented findings, assessment, and plan of care. Objective - Vital Signs Vital signs: Vital Signs Temp 97.7 F 11/20/21 08:09 Pulse 51 L 11/20/21 09:00 Resp 20 11/20/21 08:09 BP 142/70 11/20/21 08:09 Pulse Ox 86 L 11/20/21 09:00 FiO2 Intake & Output 11/19/21 11/20/21 11/20/21 18:59 06:59 18:59 Intake Total 780 Output Total 200 Balance 580 Intake: Oral 780 Output: Urine 200 Other: Voiding Method Diaper Diaper Diaper Incontinent Incontinent Incontinent External Catheter External Catheter External Catheter # Voids 1 2 - Labs CBC & Chem 7: 11/14/21 11:08 11/19/21 08:59 Labs: Abnormal Lab Results - Last 24 Hours (Table) 11/19/21 Range/Units 08:59 Sodium 133 L (137-145) mmol/L Chloride 96 L (98-107) mmol/L BUN 18 H (7-17) mg/dL Creatinine 1.14 H (0.52-1.04) mg/dL Glucose 111 H (74-99) mg/dL Microbiology - Last 24 Hours (Table) 11/17/21 10:33 Blood Culture - Preliminary Blood No Growth after 48 hours 11/17/21 10:33 Blood Culture - Preliminary Blood No Growth after 48 hours
--- NOTE | 2021-11-20 10:05 | P.PN ---
Subjective Progress Note Date: 11/19/21 Hospital course: 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 Chronic stable medical conditions include GERD, hypertension, colon cancer, seizure, sciatica, COPD. February 2021 - right brainstem thalamic stroke. Atrial flutter-fibrillation on eliquis. Was in the hospital from September 27 through October 08 with right ankle fracture. was taken to the OR Was in atrial flutter. In the perioperative period patient went into a asystole. 1 minute of CPR. Surgery was postponed. Taken to the [facility]. Had atrial flutter and possible V. tach. cardiac catheterization.- No significant disease. chronic dry mouth.- [place] was started. Patient going to pulmonary edema. Received IV Lasix. Was [facility] on [facility]. Patient has been home for one week. As per the not taking her medications. Sometimes a bit confused. Decreased appetite. Feels dehydrated. Her ankle has been healing well. himself is a bit handicapped and finds it difficult to manage. No fever no chills. No burning in the urine. Tired. Brace on the right foot. Admitted with, acute on chronic CHF, received IV Lasix. Atrial flutter fibrillation rate controlled on present 40s. November 15: Oral intake fair. Able to come indicated. Breathing better. Fluid restriction 2000 mL. Because of decreased ventricular rate will consult cardiology. Discussed with patient. Received IV Lasix yesterday. 11/16/2021 Patient is seen in follow-up this morning and awaiting cardiology consultation as patient's heart rate has been in the low 40s to 50s. Patient initially admitted with increasing shortness of breath and feeling unwell with decreased appetite and some confusion. Patient reports to having a history of COPD and uses nebulizers but was not requiring oxygen and is currently maintained on 2 L via nasal cannula. Will add d-dimer and if positive will order CT angios of the chest to rule out pulmonary embolism. Patient currently denies chest pain or palpitations. Patient is afebrile. No reports of nausea or vomiting noted and patient is tolerating diet. Psychiatry was also consulted as patient is currently on some psychiatric medications for increased anxiety and needs evaluation. Patient denies any suicidal ideation or thoughts of harming herself or others. 11/17/2021 Patient is seen in follow-up this morning somnolent and obtunded and has recently just received IM Haldol as apparently per nursing staff patient became increasingly agitated and aggressive and attempted to get out of bed and remove her lower extremity brace and was demanding to leave the hospital. Patient was not alert and oriented and is being followed by psychiatry recommending weaning Wellbutrin. Seroquel was added as needed at night although this was discontinued by psychiatry. Cardiology and pulmonary following patient did receive a dose of IV Lasix today and cardiology also maximizing medical management and no plans for pacemaker at this time. Patient continues on 2 L via nasal cannula and does not wear oxygen in the outpatient setting. Patient's d-dimer was elevated CTA not suggestive of pulmonary embolism but was showing some pleural effusion. Per family patient has been becoming more confused most recently status post her ankle fracture surgery hence the reason for psychiatric evaluation. Psychiatry is following. 11/18/2021 Patient is seen today with sister at the bedside. Multiple medical consultations following including neuro, cardio, pulm, and psychiatry. Patient is stable from cardiology standpoint and no plans for pacemaker placement at this point and will closely monitor outpatient. Adjustments to welbutrin being done and weaning per psych. Patient with less agitation and more calm today. Patient continues to be anxious about being in the hospital and eager to go home. Has not required haldol since yesterday. Patient is afebrile and denies chest pain or shortness of breath. Continued on 4L via NC at this time and will perform home 02 eval. Patient may require home oxygen to manage COPD and CHF. Wean FI02 as tolerated. 11/19/2021 Patient is seen this morning much more alert and appropriate and nursing staff reports patient has not been agitated and transitioned oral Lasix with cardiology following. Patient continues to be anticoagulation with oral anticoagulants and psychiatry also following the patient. Neurology has evaluated the patient and clear for discharge from his standpoint. Chest x-ray shows COPD changes with left basal linear pulmonary atelectasis with no sizable pleural effusion or pneumothorax noted. Pulmonary also following and patient is maintained on inhalers and will continue. Patient continues on 2 L via nasal cannula and will have nursing staff perform O2 eval as patient will likely require 2 L via nasal cannula to manage CHF and COPD. Case management following and arranging for home oxygen in the outpatient setting. Patient denies chest pain or worsening shortness of breath. Patient is afebrile. Patient denies any nausea or vomiting and is tolerating diet. Physical examination: GENERAL: This is a 71-year-old female awake, alert and oriented 2-3, well- developed, well-nourished EYES: Pupils equal. Conjunctiva normal. HEENT: External appearance of nose and ears normal, oral cavity grossly normal. NECK: JVD not raised; masses not palpable. HEART: S1, S2 muffled LUNGS: Diminished breath sounds bilaterally with no wheezing or rhonchi noted, no crackles noted ABDOMEN: Soft, non-tender, positive bowel sounds, no masses palpable. PSYCH: Alert and oriented x2-3; appropriate, cooperative MUSCULOSKELETAL: No Clubbing/cyanosis;muscles-grossly intact. OA. Right foot in a splint status post surgical intervention Assessment: Acute on chronic congestive heart failure, with preserved ejection fraction, acute exacerbation Elevated d-dimer, ruled out PE Altered mental status, etiology unknown possibly a component of toxic encephalopathy and also hospital-acquired delirium right pleural effusion Persistent Atrial fibrillation/typical flutter slow ventricular rate Recent right ankle trimalleolar fracture secondary to fall with recent closed reduction with Dr. John in September 2021 COPD, not in exacerbation Former smoker Chronic xerostomia Osteoarthritis Hypertension Anxiety/depression GI prophylaxis DVT prophylaxis Full code Plan: Recommend to continue with breathing inhalational treatments. Pro-calcitonin was negative and blood cultures remain negative, afebrile Neurology evaluated the patient and following and ct brain and eeg done and was negative. EEG was abnormal with no epileptiform activity noted. Cardiology following for boogie cardia/ aflutter, CHF exacerbation, transitioned to oral lasix and will follow with the patient outpatient with no plans for pacemaker at this time Patient continues on 02 via NC at 2 liters and recommend to wean as tolerated and may need home 02 evaluation, recommend home O2 eval as patient was 86% on room air and will likely require oxygen via 2 L nasal cannula to manage COPD and CHF D-dimer positive and no evidence of PE noted Continue fluid restriction Psychiatry following and appreciate input and recommendations on medications, avoid narcotic and [employer] agents and multiple medications have been discontinued and patient is to continue with IM or by mouth Haldol as needed , patient has been weaned from Wellbutrin and recommend close outpatient follow- up with primary care provider and will continue with Paxil. Recommend frequent reorientation and having the windows open and family at the bedside to assist with orientation of the patient. Family at the bedside and questions and concerns were answered and also encouraged family to remain present at the bedside for frequent reorientation. Patient more awake and alert and not agitated and cooperative today Prognosis is guarded possible discharge in 24 hours. The impression and plan of care has been dictated by Lynsey Rogers, Nurse Practitioner as directed. Dr. Chacho MD I have performed a history and examination and MDM of this patient, discussed the same with the dictator, and agree with the dictator's assessment and plan as written ,documented as a scribe. Based on total visit time, I have performed more than 50% of the visit. Objective - Vital Signs Vital signs: Vital Signs Temp 97.7 F 11/20/21 08:09 Pulse 51 L 11/20/21 09:00 Resp 20 11/20/21 08:09 BP 142/70 11/20/21 08:09 Pulse Ox 86 L 11/20/21 09:00 FiO2 Intake & Output 11/19/21 11/20/21 11/20/21 18:59 06:59 18:59 Intake Total 780 Output Total 200 Balance 580 Intake: Oral 780 Output: Urine 200 Other: Voiding Method Diaper Diaper Diaper Incontinent Incontinent Incontinent External Catheter External Catheter External Catheter # Voids 1 2 - Labs CBC & Chem 7: 11/14/21 11:08 11/19/21 08:59 Labs: Abnormal Lab Results - Last 24 Hours (Table) 11/19/21 Range/Units 08:59 Sodium 133 L (137-145) mmol/L Chloride 96 L (98-107) mmol/L BUN 18 H (7-17) mg/dL Creatinine 1.14 H (0.52-1.04) mg/dL Glucose 111 H (74-99) mg/dL Microbiology - Last 24 Hours (Table) 11/17/21 10:33 Blood Culture - Preliminary Blood No Growth after 48 hours 11/17/21 10:33 Blood Culture - Preliminary Blood No Growth after 48 hours
--- NOTE | 2021-11-20 11:19 | P.PN ---
Subjective Progress Note Date: 11/20/21 This is a 71-year-old female patient with known history of COPD and previous history of colon cancer with a previous colectomy and chemotherapy and the patient is still in remission. 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 The patient has history of atrial flutter and the patient has been on long-term anticoagulation. The patient was in the hospital on 09/28/2021 for a fall and she had a close fracture of the ankle. She had bimalleolar ankle fracture. She was taken to the operating room and the patient had a brief asystole and she required CPR for a total of 1 minutes and following that, the surgery was postponed and the patient was brought into the intensive care unit. At that point, she was monitored in the ICU for a few days without any cardiac events. Cardiology saw the patient and cleared the patient after undergoing a echocardiogram and a cardiac catheterization. The cardiac catheterization was done on 10/01/2021 preoperatively and the patient had no evidence of any ischemic coronary artery disease. The troponins were nonelevated. The patient was ultimately discharged to rehabilitation. The patient is coming back to the hospital and she got admitted yesterday through the emergency department because of altered mental status. The patient discharged home comfortable was at the rehab and she was discharged home of and she was at home for almost a week and she was progressively deteriorating with diminished oral intake and decreased fluid intake and the stated that she was acting more confused. For that reason she was brought in. She has no fever or chills. No nausea or vomiting. No sweats. She stated that food d oesn't taste good and she hasn't been eating at all. In the emergency, the patient a white second of 8.8 with hemoglobin 12.4 and platelets of 475 and sodium was at 140 with a serum bicarb of 19 and a BUN of 10 with a creatinine of 0.99. The liver function tests were normal. The patient had an AST of 36, ALT of 20 alk phos of 140. The patient had a d-dimer of 1.49. UA showed trace protein, otherwise negative. Urine drug screen was negative. Coagulation profile was within normal limits. ProBNP level was 4410 and ammonia level was less than 9. CAT scan of the chest was done and this was a CTA and it showed no evidence of any pulmonary embolism. There was some bilateral lower lobe pul monary infiltrates and atelectasis with right-sided pleural effusion and there was cardiomegaly and this obviously raises the concern for CHF. There was some mild right sided bronchial adenopathy, thought to be likely benign. The CTA also showed some background emphysema with upper lobe predominance. Some compressive atelectasis in the right lung base. Today on today's evaluation 11/18/2021, the patient is lethargic and she is arousable and she is awake and she is following simple commands. She was able to state the location and the year. No focal neurological deficit and the CAT scan of the brain that was done yesterday showed chronic changes without any acute abnormalities. The patient was seen by neurology. The patient is not having any seizure activity. No headaches. No neck stiffness. Pro-calcitonin level is low. Cultures are negative thus far. The patient is diuresing with IV Lasix. The patient was seen by neurology and EEG of the brain was also done that showed no acute abnormalities. Neurology thought that this was an encephalopathy possibly medication induced. The recommendation was to continue to monitor. Clinically improved compared to yesterday. 11/19, the patient is doing well. She is wide awake and following commands and answers questions appropriately. Her mental status seems to be of normalized. No respiratory difficulties. The patient was diuresed adequately. His COPD stable. Her chest x-ray shows improvement in the volume status. Lung bases are more clear and there is no significant blunting of today's evaluation. Overall fluid balance has been negative and the patient was being diuresed with IV Lasix. This morning, the patient is on oral Lasix 20 mg by mouth daily. The patient is also on bronchodilators. The patient is on long-term anticoagulants with Eliquis 5 mg by mouth twice a day. Cardiac rhythm is a flutter. No other significant events otherwise for now. Neurology is on the case. The patient remains on 3 L with a pulse ox of 94%. 2021, the patient is awake and alert and has no specific complaints. Following commands and answering questions appropriately. No other significant events overnight. She remains on long-term anticoagulation regarding her chronic atrial flutter. No focal neurological deficits. No respiratory distress for now. She is wearing a medic bruits in her right leg. The patient is also on Lasix 20 mg by mouth daily Objective - Vital Signs Vital signs: Vital Signs Temp 97.7 F 11/20/21 08:09 Pulse 88 11/20/21 11:09 Resp 20 11/20/21 08:09 BP 142/70 11/20/21 08:09 Pulse Ox 86 L 11/20/21 09:00 FiO2 Intake & Output 11/19/21 11/20/21 11/20/21 18:59 06:59 18:59 Intake Total 780 Output Total 200 Balance 580 Intake: Oral 780 Output: Urine 200 Other: Voiding Method Diaper Diaper Diaper Incontinent Incontinent Incontinent External Catheter External Catheter External Catheter # Voids 1 2 - Exam GENERAL EXAM: Lethargic, quite sleepy is arousable, 71-year-old white female, on 2 L of oxygen pulse ox of 95%, HEAD: Normocephalic/atraumatic. EYES: Normal reaction of pupils, equal size. Conjunctiva pink, sclera white. NOSE: Clear with pink turbinates. THROAT: No erythema or exudates. NECK: No masses, no JVD, no thyroid enlargement, no adenopathy. CHEST: No chest wall deformity. Symmetrical expansion. LUNGS: Equal air entry with no crackles, wheeze, rhonchi or dullness. CVS: Regular rate and rhythm, normal S1 and S2, no gallops, no murmurs, no rubs ABDOMEN: Soft, nontender. No hepatosplenomegaly, normal bowel sounds, no guarding or rigidity. EXTREMITIES: No clubbing, no edema, no cyanosis, 2+ pulses and upper and lower extremities. MUSCULOSKELETAL: Muscle strength and tone normal. SPINE: No scoliosis or deformity SKIN: No rashes CENTRAL NERVOUS SYSTEM: Awake and alert and oriented 3, no focal neurological deficit PSYCHIATRIC: normal - Labs CBC & Chem 7: 11/14/21 11:08 11/19/21 08:59 Labs: Abnormal Lab Results - Last 24 Hours (Table) 11/19/21 Range/Units 08:59 Sodium 133 L (137-145) mmol/L Chloride 96 L (98-107) mmol/L BUN 18 H (7-17) mg/dL Creatinine 1.14 H (0.52-1.04) mg/dL Glucose 111 H (74-99) mg/dL Microbiology - Last 24 Hours (Table) 11/17/21 10:33 Blood Culture - Preliminary Blood No Growth after 48 hours 11/17/21 10:33 Blood Culture - Preliminary Blood No Growth after 48 hours Assessment and Plan Plan: 1 altered mental status. The patient is fully recovered and the patient's condition is normalized. No focal neurological deficits. No agitation. No symptoms at the bedside. The neuro workup including EEG showed encephalopathy and a CAT scan of the brain showed no acute abnormalities. Scleral and potentially a drug induced encephalopathy/medication induced. 2 CHF with elevated proBNP level and small bilateral pleural effusion right more than left, underlying pneumonia is doubtful, improving on today's chest x-ray 3 right ankle bimalleolar fracture, the patient underwent closed reduction and placement of the splint 4 history of a acute cardiac arrest, asystole, exact cause is not clear. I bel ieve this occurred preoperatively, it could have been a vagal response. Troponins are minimally elevated at this point in time the patient is free of any chest pain. No acute ST segment elevation or depression the patient continues to be in atrial flutter. Conventional Underwriter Cleared the patient back in September 2021. 5 COPD , maintained on Trelegy Ellipta on outpatient basis 6 history of colon cancer 7 chronic anxiety/depression 8 hypertension 9 chronic atrial flutter 10 non anion gap metabolic acidosis, recovered 11 degenerative arthritis 12 hypertension Plan monitor mentation , clinically improved and the patient is back to her baseline. No focal neurological deficit. She is awake and alert 3. Patient is down to oxygen at 2 L No signs of any respiratory distress Blood cultures of been negative Continue Trelegy Ellipta at home Home O2 at 2 L Incentive spirometer No need for antibiotic coverage Neurology consult is appreciated.
[2021-11-20 11:28] VITALS: BP 117/57; PULSE 53; TEMP 97.3
[2021-11-20 13:01] VITALS: BMI 30.2
--- NOTE | 2021-11-20 13:38 | P.PN ---
Progress Note - Text Progress Note Date: 11/20/21 Interval History: Patient was seen resting in her chair and was directable and agreeable to speak with financial underwriter in her room. Currently, the patient is expressing a strong desire for discharge. She is currently alert and oriented to person, place, time, and situation. The patient is vehemently denying any suicidal or homicidal ideation, intention, and/or plan. She is not reporting any auditory or visual hallucinations. She is denying any paranoia or other delusions. The patient is not endorsing any significant side effects from medications. Mental Status Exam: General Appearance: Patient appears to be stated age is alert, directable, and cooperative. Behavior: Patient is calmly seated without any agitated behavior. Speech: Patient's speech is fluent and nonpressured. Mood/Affect: Mood is "I'm ready to go home." Affect appears to be euthymic with appropriate range. Suicidality/Homicidality: Patient denies having any suicidal or homicidal ideation intent or plan. Perceptions: Patient denies any visual hallucinations and denies any auditory hallucinations Though content/process: There is no evidence of any delusional thought content and thought process is linear and goal-directed. Memory and concentration: AOX3, grossly intact for the purposes of this session Judgment and insight: Improving mildly Vital Signs Temp 97.3 F L 11/20/21 11:27 Pulse 53 L 11/20/21 11:27 Resp 20 11/20/21 11:27 BP 117/57 11/20/21 11:27 Pulse Ox 92 L 11/20/21 11:27 FiO2 Intake & Output 11/19/21 11/20/21 11/20/21 18:59 06:59 18:59 Intake Total 780 Output Total 200 Balance 580 Weight 80 kg Intake: Oral 780 Output: Urine 200 Other: Voiding Method Diaper Diaper Diaper Incontinent Incontinent Incontinent External Catheter External Catheter External Catheter # Voids 1 2 Laboratory Results - Last 24 Hours 11/19/21 08:59 Sodium 133 L Potassium 4.1 Chloride 96 L Carbon Dioxide 28 Anion Gap 9 BUN 18 H Creatinine 1.14 H Est GFR (CKD-EPI)AfAm 55 Est GFR (CKD-EPI)NonAf 48 Glucose 111 H Calcium 8.8 Assessment Altered mental status, appears to be resolved Plan: -Patient does not meet criteria for an inpatient psychiatric admission. Agree with previously recommended psychiatric medication changes. Okay to continue Paxil 40 mg by mouth daily. We will defer to the patient's outpatient provider in regards to this medication as this medication may contribute to anticholinergic side effects. -Psychiatry will sign off at this time. Patient is cleared psychiatrically for discharge.
--- NOTE | 2021-11-25 09:37 | P.DS ---
Providers Date of admission: 11/14/21 15:02 Expected date of discharge: 11/20/21 Attending physician: Juan Villegas Consults: 11/14/21 16:29 Consult Physician Routine Consulting Provider: Jaime Cornejo Consult Reason/Comments: Anxiety, uncontrolled Do you want consulting provider notified?: Yes 11/15/21 12:40 Consult Physician Routine Consulting Provider: Elisabeth Samson Consult Reason/Comments: low heart rate/atrial flutter Do you want consulting provider notified?: Yes 11/16/21 19:48 Consult Physician Urgent Consulting Provider: Ileana Brown Consult Reason/Comments: pleural effusion/ chf/ copd Do you want consulting provider notified?: Yes 11/17/21 10:17 Consult Physician Routine Consulting Provider: Saji Ramirez Consult Reason/Comments: altered mental status Do you want consulting provider notified?: Yes Primary care physician: Davis Ty [facility] Course: Final diagnosis Acute on chronic congestive heart failure, with preserved ejection fraction, acute exacerbation Elevated d-dimer, ruled out PE Altered mental status, etiology unknown possibly a component of toxic encephalopathy and also hospital-acquired delirium right pleural effusion Persistent Atrial fibrillation/typical flutter slow ventricular rate Recent right ankle trimalleolar fracture secondary to fall with recent closed reduction with Dr. John in September 2021 COPD, not in exacerbation Former smoker Chronic xerostomia Osteoarthritis Hypertension Anxiety/depression GI prophylaxis DVT prophylaxis Full code Discharge disposition Patient is being discharged in a stable condition with guarded prognosis to home with home care. Patient will follow-up with Dr. Ty in the outpatient setting upon discharge. Patient is to follow-up with cardiology and pulmonary a s scheduled. Total time taken is greater than 35 minutes. Hospital course This is a 71-year-old female who was recently admitted with some increased anxiety, noncompliance with medications and becoming a little more confused with dehydration and decreased appetite and was being closely monitored. Patient was found to have atrial flutter/fibrillation an acute on chronic CHF and was started on IV Lasix. Patient was seen and evaluated by cardiology and also pulmonary along with psychiatry and recommended holding HEALTH OFFICER agents as patient was becoming more altered and had an episode of increased agitation with nursing staff. Patient was placed on 2 L and had home O2 eval and will continue to liters via nasal cannula on discharge to manage her CHF. Patient will need follow-up with pulmonary along with cardiology and orthopedics as scheduled as patient recently had a right malleolar fracture and continues with a surgical boot at this time. Patient was seen and evaluated by physical therapy and will be going home with home care per patient and family request. Currently no reports of chest pain, shortness of breath, or palpitations. Patient is afebrile. No reports of nausea or vomiting and patient is tolerating diet. Patient will be discharged home today. Guarded prognosis. On exam vital signs are stable. Cardio S1, S2 are muffled. Respiratory system shows diminished breath sounds at the bases with no wheezing or rhonchi noted. Abdomen is soft and obese, and nontender. Nervous system shows diffuse weakness secondary to her surgical boot on the right lower extremity. Please refer to medication reconciliation sheet for a list of medications. The impression and plan of care has been dictated by Lynsey Rogers, Nurse Practitioner as directed. Dr. John MD I have performed a history and examination and MDM of this patient, discussed the same with the dictator, and agree with the dictator's assessment and plan as written ,documented as a scribe. Based on total visit time, I have performed more than 50% of the visit. Patient Condition at Discharge: Fair Plan - Discharge Summary Discharge Rx Participant: No New Discharge Prescriptions: New Furosemide [Lasix] 20 mg PO DAILY #30 tab hydrALAZINE HCL [Apresoline] 50 mg PO TID #90 tab Isosorbide Mononitrate ER [Imdur] 30 mg PO DAILY #30 tab Potassium Chloride ER [K-Dur 20] 20 meq PO DAILY #30 tab Acetaminophen Tab [Tylenol] 650 mg PO Q6HR PRN tab PRN Reason: Mild Pain Or Fever > 100.5 Continue PARoxetine HCL 40 mg PO DAILY Atorvastatin [Lipitor] 40 mg PO HS #30 tablet Ipratropium-Albuterol Nebulize [Duoneb 0.5 mg-3 mg/3 ml Soln] 3 ml INHALATION RT-TID ml Oxybutynin Chloride [Oxybutynin Chloride ER] 10 mg PO DAILY Psyllium Husk 100% [Metamucil Packet] 6 gm PO BID #1 packet Potassium Chloride ER [K-Dur 20] 40 meq PO DAILY Fluticasone/Umeclidin/Vilanter [Trelegy Ellipta 100-62.5-25] 1 puff INHALATION RT-DAILY Apixaban [Eliquis] 5 mg PO BID Pilocarpine [Salagen] 5 mg PO TID tab Diphenox-Atrop 2.5-0.025 mg [Lomotil] 2 tab PO BID PRN #6 tab PRN Reason: Diarrhea ALPRAZolam [Xanax] 0.5 mg PO BID PRN #6 tab PRN Reason: Anxiety Discontinued buPROPion HCL [Wellbutrin XL] 300 mg PO DAILY Discharge Medication List Fluticasone/Umeclidin/Vilanter [Trelegy Ellipta 100-62.5-25] 1 puff INHALATION RT-DAILY 03/04/21 [History] PARoxetine HCL 40 mg PO DAILY 03/04/21 [History] Atorvastatin [Lipitor] 40 mg PO HS #30 tablet 03/06/21 [Rx] Apixaban [Eliquis] 5 mg PO BID 09/27/21 [History] Ipratropium-Albuterol Nebulize [Duoneb 0.5 mg-3 mg/3 ml Soln] 3 ml INHALATION RT-TID ml 10/08/21 [Rx] Pilocarpine [Salagen] 5 mg PO TID tab 10/08/21 [Rx] Oxybutynin Chloride [Oxybutynin Chloride ER] 10 mg PO DAILY 10/20/21 [History] ALPRAZolam [Xanax] 0.5 mg PO BID PRN #6 tab 10/22/21 [Rx] Diphenox-Atrop 2.5-0.025 mg [Lomotil] 2 tab PO BID PRN #6 tab 10/22/21 [Rx] Psyllium Husk 100% [Metamucil Packet] 6 gm PO BID #1 packet 10/22/21 [Rx] Potassium Chloride ER [K-Dur 20] 40 meq PO DAILY 11/14/21 [History] Acetaminophen Tab [Tylenol] 650 mg PO Q6HR PRN tab 11/20/21 [Rx] Furosemide [Lasix] 20 mg PO DAILY #30 tab 11/20/21 [Rx] Isosorbide Mononitrate ER [Imdur] 30 mg PO DAILY #30 tab 11/20/21 [Rx] Potassium Chloride ER [K-Dur 20] 20 meq PO DAILY #30 tab 11/20/21 [Rx] hydrALAZINE HCL [Apresoline] 50 mg PO TID #90 tab 11/20/21 [Rx] Follow up Appointment(s)/Referral(s): Davis Ty DO [Primary Care Provider] - 11/25/21 8:40 am [facility],Equipment [NON-STAFF] - 1 Week [facility], [NON-STAFF] - 1 Week Patient Instructions/Handouts: Heart Healthy Diet (DC) Activity/Diet/Wound Care/Special Instructions: Activity Limited until follow-up Follow-up with primary care provider on discharge Follow-up with pulmonary outpatient in 1-2 weeks Follow-up cardiology outpatient in 1-2 weeks Continue taking medications as prescribed Continue with oxygen via nasal cannula 2 L continuously and discuss further with pulmonary on follow-up Continue heart healthy cardiac diet Discharge Disposition: HOME WITH HOME HEALTH SERVICES
== END 2021-11-20 14:53 | disposition home health service (06) | DRG 291 ==
LOC: EC 10:22 → 3SCARD 15:02
PROVIDERS: ADMIT Hospitalist; ATTEND Hospitalist
DX: I11.0 Hypertensive heart disease with heart failure (principal); G92.8 Other toxic encephalopathy; I50.33 Acute on chronic diastolic (congestive) heart failure; F01.51 Vascular dementia, unspecified severity, with behavioral disturbance; I48.19 Other persistent atrial fibrillation; I48.3 Typical atrial flutter; J43.9 Emphysema, unspecified; E86.0 Dehydration; I45.10 Unspecified right bundle-branch block; E78.5 Hyperlipidemia, unspecified; F41.9 Anxiety disorder, unspecified; I34.0 Nonrheumatic mitral (valve) insufficiency; K11.7 Disturbances of salivary secretion; R56.9 Unspecified convulsions; T50.905A Adverse effect of unspecified drugs, medicaments and biological substances, initial encounter; F33.42 Major depressive disorder, recurrent, in full remission; K21.9 Gastro-esophageal reflux disease without esophagitis; M19.91 Primary osteoarthritis, unspecified site; S82.851A Displaced trimalleolar fracture of right lower leg, initial encounter for closed fracture; M54.30 Sciatica, unspecified side; N39.3 Stress incontinence (female) (male); Z79.01 Long term (current) use of anticoagulants; Z79.51 Long term (current) use of inhaled steroids; Z79.82 Long term (current) use of aspirin; Z79.899 Other long term (current) drug therapy; Z86.73 Personal history of transient ischemic attack (TIA), and cerebral infarction without residual deficits; Z85.038 Personal history of other malignant neoplasm of large intestine; Z90.49 Acquired absence of other specified parts of digestive tract; Z86.74 Personal history of sudden cardiac arrest; Z87.891 Personal history of nicotine dependence; Z92.21 Personal history of antineoplastic chemotherapy; Z88.0 Allergy status to penicillin; Z88.2 Allergy status to sulfonamides; Z88.8 Allergy status to other drugs, medicaments and biological substances; Z80.0 Family history of malignant neoplasm of digestive organs; Z80.52 Family history of malignant neoplasm of bladder
CPT/HCPCS: 36415; 70450; 71045; 71046; 71275; 80048; 80053; 80306; 81001; 82140; 82607; 82746; 83690; 83735; 83880; 84145; 84439; 84443; 84484; 85025; 85379; 85610; 85730; 87040; 93005; 94640; 94760; 95819; 96361; 96374; 96375; 99285

== ENCOUNTER 2022-02-26 20:10 | Inpatient (IN) | payer MEDICARE ==
--- NOTE | 2022-02-27 03:06 | XR ---
EXAMINATION TYPE: XR chest 2V DATE OF EXAM: 02/27/2022 COMPARISON: 02/18/2022 HISTORY: Short of breath TECHNIQUE: FINDINGS: Heart is enlarged. There is pulmonary interstitial and airspace mild edema. There is mild b lunting of the costophrenic angles. There are chest leads. Thoracic aorta is atheromatous. IMPRESSION: There is evidence for some mild congestive heart failure. There is some clearing of the p leural fluid and right lower lobe infiltrate compared to old exam. Pulmonary congestion without ceja e.
[2022-02-27 03:52] LABS: Anisocytosis Slight; Basophils % (A) 0 %; Eosinophils # (A) 0.1 k/uL (0-0.7); Eosinophils % (A) 1 %; HCT 44.1 % (34.0-46.0); HGB 13.9 gm/dL (11.4-16.0); Hypochromasia Moderate; Lymphocytes # (A) 0.8 k/uL (1.0-4.8); Lymphocytes % (A) 6 %; MCH 28.8 pg (25.0-35.0); MCHC 31.6 g/dL (31.0-37.0); MCV 91.1 fL (80.0-100.0); Mean Platelet Volume 7.1; Monocytes # (A) 0.9 k/uL (0-1.0); Monocytes % (A) 6 %; Neutrophils # (A) 11.7 k/uL (1.3-7.7); Neutrophils % (A) 85 %; Platelet Count 372 k/uL (150-450); RBC 4.84 m/uL (3.80-5.40); WBC 13.7 k/uL (3.8-10.6)
[2022-02-27 04:12] LABS: Albumin 3.8 g/dL (3.5-5.0); Magnesium 1.3 mg/dL (1.6-2.3); Total Bilirubin 1.1 mg/dL (0.2-1.3); Total Protein 6.5 g/dL (6.3-8.2)
[2022-02-27 04:19] LABS: Potassium 2.1 mmol/L (3.5-5.1)
[2022-02-27] MEDS ORDERED: ASPIRIN 81 MG PO STA (04:33)
[2022-02-27] MEDS ORDERED: HEPARIN SODIUM 1,000 UN/ML (10ML VL) IV ONE (04:39)
[2022-02-27] MEDS ORDERED: HEPARIN SODIUM 1,000 UN/ML (10ML VL) IV PRN (04:39)
[2022-02-27] MEDS ORDERED: NALOXONE 0.4 MG/ML 1 ML VIAL IV PRN (04:42)
[2022-02-27] MEDS ORDERED: HEPARIN SOD,PORK IN 0.45% NACL 25,000 UNIT in 0.45% NACL 1 250ML.BAG IV SCH (04:45)
[2022-02-27] MEDS ORDERED: ALPRAZolam 0.5 MG TAB PO PRN (04:48)
[2022-02-27] MEDS ORDERED: FUROSEMIDE 10 MG/ML 4 ML VIAL IV STA (04:49)
--- NOTE | 2022-02-27 05:05 | ED ---
General Adult HPI - General Chief complaint: Recheck/Abnormal Lab/Rx Stated complaint: Irregular labs-sent by PCP Time Seen by Provider: 02/27/22 02:16 Source: patient, RN notes reviewed, old records reviewed Mode of arrival: ambulatory - History of Present Illness Initial comments: Patient is a 71-year-old female who presents to the emergency department complaining of some mild shortness of breath. States she was told to come here due to low potassium levels obtained in outpatient blood draw. States she has been more short of breath lately. Endorses worsening lower extremity edema. States they recently increased her Lasix dosing. Denies orthopnea or PND. Was sent home on oxygen 2 L but states she does not wear. States she uses a pulse ox at home and sees it read 85%. She does not appear alarmed by this. Denies any chest pain. Denies any nausea or vomiting or abdominal pain. Has no other acute complaints at this time. Presents for further evaluation at this time. I evaluated the patient when she was placed in a room. - Related Data Home Medications Medication Instructions Recorded Confirmed Fluticasone/Umeclidin/Vilanter 1 puff INHALATION RT-DAILY 03/04/21 11/14/21 [Trelegy Ellipta 100-62.5-25] PARoxetine HCL 40 mg PO DAILY 03/04/21 11/14/21 Apixaban [Eliquis] 5 mg PO BID 09/27/21 11/14/21 Oxybutynin Chloride [Oxybutynin 10 mg PO DAILY 10/20/21 11/14/21 Chloride ER] Potassium Chloride ER [K-Dur 20] 40 meq PO DAILY 11/14/21 11/14/21 Previous Rx's Medication Instructions Recorded Atorvastatin [Lipitor] 40 mg PO HS #30 tablet 03/06/21 Ipratropium-Albuterol Nebulize 3 ml INHALATION RT-TID ml 10/08/21 [Duoneb 0.5 mg-3 mg/3 ml Soln] Pilocarpine [Salagen] 5 mg PO TID tab 10/08/21 ALPRAZolam [Xanax] 0.5 mg PO BID PRN #6 tab 10/22/21 Diphenox-Atrop 2.5-0.025 mg 2 tab PO BID PRN #6 tab 10/22/21 [Lomotil] Psyllium Husk 100% [Metamucil 6 gm PO BID #1 packet 10/22/21 Packet] Acetaminophen Tab [Tylenol] 650 mg PO Q6HR PRN tab 11/20/21 Furosemide [Lasix] 20 mg PO DAILY #30 tab 11/20/21 Isosorbide Mononitrate ER [Imdur] 30 mg PO DAILY #30 tab 11/20/21 Potassium Chloride ER [K-Dur 20] 20 meq PO DAILY #30 tab 11/20/21 hydrALAZINE HCL [Apresoline] 50 mg PO TID #90 tab 11/20/21 Allergies Allergy/AdvReac Type Severity Reaction Status Date / Time benazepril Allergy Anaphylaxis Verified 02/26/22 20:31 Penicillins Allergy Face Verified 02/26/22 20:31 swelling sertraline [From Zoloft] Allergy Face Verified 02/26/22 20:31 swelling Sulfa (Sulfonamide Allergy Face Verified 02/26/22 20:31 Antibiotics) swelling Review of Systems ROS Statement: Those systems with pertinent positive or pertinent negative responses have been documented in the HPI. Review of Systems: CONST: Denies fever EYES: Denies blurry vision ENT: Denies nasal congestion C/V: Denies Chest pain RESP: Endorses mildly worsening shortness of breath GI: Denies abdominal pain : Denies dysuria SKIN: Denies rash. MSK: Denies joint pain. NEURO: Denies headache ROS Other: All systems not noted in ROS Statement are negative. Past Medical History Past Medical History: Cancer, COPD, GERD/Reflux, GI Bleed, Hypertension, Musculoskeletal Disorder Additional Past Medical History / Comment(s): Colon cancer 2016/right colectomy- had surg. & chemo, CVA, COPD. Seizure, fx. R ankle, sciatica, chronic atrial flutter. History of Any Multi-Drug Resistant Organisms: None Reported Past Surgical History: Bowel Resection, Cholecystectomy, Orthopedic Surgery, Tonsillectomy Additional Past Surgical History / Comment(s): right wrist surgery post fracture, robotic colectomy Past Anesthesia/Blood Transfusion Reactions: No Reported Reaction Past Psychological History: Anxiety Smoking Status: Former smoker Past Alcohol Use History: Occasional Past Drug Use History: None Reported - Past Family History Mother Family Medical History: Cancer Additional Family Medical History / Comment(s): Bladder cancer. Sister(s) Family Medical History: Cancer Additional Family Medical History / Comment(s): Colon cancer. General Exam - General Exam Comments Initial Comments: General: Appears in no acute distress. HEAD: Normal with no signs of head trauma. EYES: EOMI ENT: Hearing grossly intact, normal oropharynx. RESPIRATORY: Clear breath sounds bilaterally. No wheezes, rales, or rhonchi. Hypoxic on room air to 85%. Saturating 93% on 2 L nasal cannula. No respiratory distress. C/V: Irregular rate and rhythm. S1 and S2 auscultated. 1+ pitting edema that is symmetrical and bilateral lower extremities. Peripheral pulses 2+ and intact. ABD: Abd is soft, nontender, nondistended EXT: Normal range of motion, no obvious deformity SKIN: No rashes or lesions observed on exposed skin. NEURO: Alert and oriented x 4. Cranial nerves II-XII intact. No focal sensory or strength deficits. Course Vital Signs 02/26/22 02/27/22 02/27/22 20:28 05:05 06:17 Temperature 98.4 F Pulse Rate 53 L 61 64 Respiratory 18 15 15 Rate Blood Pressure 108/51 111/74 115/64 O2 Sat by Pulse 93 L 95 94 L Oximetry Medical Decision Making - Medical Decision Making Based on the patient's presentation and physical exam, I'm concerned for laboratory abnormalities versus cardio pulmonary etiology for her current symptoms. She may be experiencing mild heart failure. She has been hypoxic at home. Would like to obtain a cardio pulmonary workup. She was in agreement this plan. EKG, chest x-ray, blood work. She will be continued on her 2 L nasal cannula that she is supposed to be on at home. She was in agreement with this plan. EKG shows atrial flutter. There is a good deal of baseline artifact which does make this EKG difficult to interpret, however there does not appear to be any signs of acute ischemia. Chest x-ray does show bilateral pulmonary edema concerning for pulmonary vascular congestion. Laboratory studies are remarkable for a hypokalemia of 2.1. She has hypomagnesemia of 1.3. Both will be replen ished. Troponin is elevated to 0.141 with an elevated BNP of 3500. Elevated troponin is likely poly-factorial, with her panic hypoxia at home, as well as her current heart failure exacerbation. She has never had chest pain per patient. However I did discuss with her that I would like to start on a heparin drip due to her risk factors for an NSTEMI at this point. She was in agreement this plan. We will hold her Eliquis and continue her on heparin at this time. Patient was given 324 mg of aspirin. She'll be given a single dose of Lasix, however her increased Lasix dosing may be contributing to her electrode abnormalities. I will defer further Lasix and diuretic dosing to the inpatient team and cardiology. Cardiology will be consulted. Echo was ordered. Vital signs remained within normal limits at this time. She is asymptomatic at this time. I spoke with the admitting physician, Dr. Villegas she was in agreement this plan and accepted the patient. She was admitted to a telemetry bed. - Lab Data Result diagrams: 02/27/22 03:39 02/27/22 03:39 Lab Results 02/27/22 02/27/22 02/27/22 Range/Units 03:39 03:39 03:39 WBC 13.7 H (3.8-10.6) k/uL RBC 4.84 (3.80-5.40) m/uL Hgb 13.9 (11.4-16.0) gm/dL Hct 44.1 (34.0-46.0) % MCV 91.1 (80.0-100.0) fL MCH 28.8 (25.0-35.0) pg MCHC 31.6 (31.0-37.0) g/dL RDW 17.0 H (11.5-15.5) % Plt Count 372 (150-450) k/uL MPV 7.1 Neutrophils % 85 % Lymphocytes % 6 % Monocytes % 6 % Eosinophils % 1 % Basophils % 0 % Neutrophils # 11.7 H (1.3-7.7) k/uL Lymphocytes # 0.8 L (1.0-4.8) k/uL Monocytes # 0.9 (0-1.0) k/uL Eosinophils # 0.1 (0-0.7) k/uL Basophils # 0.0 (0-0.2) k/uL Hypochromasia Moderate Anisocytosis Slight Sodium 137 (137-145) mmol/L Potassium 2.1 L* (3.5-5.1) mmol/L Chloride 93 L (98-107) mmol/L Carbon Dioxide 31 H (22-30) mmol/L Anion Gap 13 mmol/L BUN 14 (7-17) mg/dL Creatinine 0.93 (0.52-1.04) mg/dL Est GFR (CKD-EPI)AfAm 71 (>60 ml/min/1.73 sqM) Est GFR (CKD-EPI)NonAf 62 (>60 ml/min/1.73 sqM) Glucose 100 H (74-99) mg/dL Calcium 8.0 L (8.4-10.2) mg/dL Magnesium 1.3 L (1.6-2.3) mg/dL Total Bilirubin 1.1 (0.2-1.3) mg/dL AST 30 (14-36) U/L ALT 14 (4-34) U/L Alkaline Phosphatase 136 H (38-126) U/L Troponin I (0.000-0.034) ng/mL NT-Pro-B Natriuret Pep 3520 pg/mL Total Protein 6.5 (6.3-8.2) g/dL Albumin 3.8 (3.5-5.0) g/dL 02/27/22 Range/Units 03:39 WBC (3.8-10.6) k/uL RBC (3.80-5.40) m/uL Hgb (11.4-16.0) gm/dL Hct (34.0-46.0) % MCV (80.0-100.0) fL MCH (25.0-35.0) pg MCHC (31.0-37.0) g/dL RDW (11.5-15.5) % Plt Count (150-450) k/uL MPV Neutrophils % % Lymphocytes % % Monocytes % % Eosinophils % % Basophils % % Neutrophils # (1.3-7.7) k/uL Lymphocytes # (1.0-4.8) k/uL Monocytes # (0-1.0) k/uL Eosinophils # (0-0.7) k/uL Basophils # (0-0.2) k/uL Hypochromasia Anisocytosis Sodium (137-145) mmol/L Potassium (3.5-5.1) mmol/L Chloride (98-107) mmol/L Carbon Dioxide (22-30) mmol/L Anion Gap mmol/L BUN (7-17) mg/dL Creatinine (0.52-1.04) mg/dL Est GFR (CKD-EPI)AfAm (>60 ml/min/1.73 sqM) Est GFR (CKD-EPI)NonAf (>60 ml/min/1.73 sqM) Glucose (74-99) mg/dL Calcium (8.4-10.2) mg/dL Magnesium (1.6-2.3) mg/dL Total Bilirubin (0.2-1.3) mg/dL AST (14-36) U/L ALT (4-34) U/L Alkaline Phosphatase (38-126) U/L Troponin I 0.141 H* (0.000-0.034) ng/mL NT-Pro-B Natriuret Pep pg/mL Total Protein (6.3-8.2) g/dL Albumin (3.5-5.0) g/dL - EKG Data -: EKG Interpreted by Me EKG Comments: 12-lead Electrocardiogram Interpretation Note EKG was reviewed and interpreted by myself. 12-lead ECG performed at 0212 is interpreted by me as revealing atrial flutter at a rate of 53 beats per minute. [place] is normal. QRS durations 110 ms, QTc is 361 ms.. There were no obvious ST or T wave abnormalities to suggest myocardial ischemia or injury. R wave progression across the precordium was satisfactory. By my interpretation this EKG is non-diagnostic for acute ischemia. There is a good deal of baseline artifact present, however no obvious ST segment or T-wave abnormalities to sug gest acute ischemia. Baseline artifact does make it difficult to interpret the EKG. When compared to prior EKGs from October 2021, relatively unchanged. PVCs are present. Critical Care Time Critical Care Time: Yes Total Critical Care Time: 35 Critical Care Time: Upon my evaluation, this patient had a high probability of imminent or life- threatening deterioration due to NSTEMI, electrolyte abnormalities, CHF exacerbation which required my direct attention, intervention, and personal management. I have personally provided 35 minutes of critical care time exclusive of time spent on separately billable procedures. Time includes review of laboratory d mark, radiology results, discussion with consultants, and monitoring for potential decompensation. Interventions were performed as documented in my note. Disposition Clinical Impression: CHF (congestive heart failure), NSTEMI (non-ST elevated myocardial infarction), Elevated troponin, Hypomagnesemia, Hypokalemia Disposition: ADMITTED IP TO THIS HOSP Condition: Serious Time of Disposition: 04:40
[2022-02-27] MEDS: MAGNESIUM SULFATE-D5W PMX 1 GM in DEXTROSE/WATER 1 100ML.BAG IVPB SCH ×2 (06:05→08:44)
[2022-02-27] MEDS: POTASSIUM CHLORIDE 10 MEQ in WATER FOR INJECTION 1 100ML.BAG IVPB SCH (08:15)
[2022-02-27] MEDS: POTASSIUM CHLORIDE ER 20 MEQ TAB.ER PO SCH ×6 (08:43→17:19)
[2022-02-27] MEDS: ISOSORBIDE MONONITRATE ER 30 MG TAB.ER.24H PO SCH (08:44)
[2022-02-27] MEDS: OXYBUTYNIN 10 MG TAB.ER.24 PO SCH (08:52)
[2022-02-27] MEDS ORDERED: hydrALAZINE HCL 50 MG TAB PO SCH (09:00)
--- NOTE | 2022-02-27 11:09 | P.CRDCN ---
History of Present Illness Consult date: 02/27/22 History of present illness: The patient is a 71-year-old female who follows in the office with Dr. Alston. She presented to the hospital after being instructed to do so by her primary care provider for hypokalemia. Potassium level on arrival was 2.1. Cardiology was consult at for elevated troponin level and congestive heart failure. DIAGNOSTICS: EKG shows rate controlled atrial flutter Chest x-ray shows mild pleural fluid and right lower lobe infiltrate Lab data: WBC 13.7, hemoglobin 13.9, hematocrit 44.1, platelet 372, sodium 137, potassium 2.1, BUN 14, creatinine 0.93, AST 30, ALT 14 BNP 3520, troponin 0.14, 0.11 PAST MEDICAL HISTORY: Atrial flutter, hypertension, COPD, dyslipidemia REVIEW OF SYSTEMS: No fever or chills. No cough or expectoration. No annamaria phoresis. Patient denies headache, dizziness, blurred vision, double vision. Patient denies any stomach discomfort. No nausea, vomiting. No hematochezia. No hematemesis. Denies any black stools or blood in his stools. Denies dysuria or hematuria. No muscle weakness or numbness. PHYSICAL EXAMINATION: This is a 71-year-old female in no apparent distress at the time of my examination. HEENT: Head is atraumatic, normocephalic. Pupils are equal, round. Sclerae anicteric. Conjunctivae are clear. Mucous membranes of the mouth are moist. Neck is supple. There is no jugular venous distention. No carotid bruit is heard. CHEST EXAMINATION: Lungs are clear to auscultation. No chest wall tenderness is noted on palpation or with deep breathing. HEART EXAMINATION: Irregular rate and rhythm. S1, S2 heard. Systolic murmur. No gallops or rub. ABDOMEN: Soft, nontender. Bowel sounds are heard. No organomegaly noted. EXTREMITIES: 2+ peripheral pulses with no evidence of peripheral edema and no calf tenderness noted. NEUROLOGIC EXAMINATION: Patient is awake, alert and oriented x3. FINAL ASSESSMENT AND PLAN: Severe hypokalemia, potassium 2.1 Elevated troponin, flat, not indicative of ACS Persistent atrial flutter, rate controlled History of hypertension History of aortic stenosis History of COPD PLAN: Echocardiogram results pending Discontinue heparin drip and resume novel anticoagulation Continue electrolyte supplementation Consider spironolactone in the future with chronic hypokalemia No further recommendations from the cardiac standpoint I am dictating on behalf of Dr Butch Michaud's history/physical and assessment/plan. Past Medical History Past Medical History: Cancer, COPD, GERD/Reflux, GI Bleed, Hypertension, Musculoskeletal Disorder Additional Past Medical History / Comment(s): Colon cancer 2016/right colectomy- had surg. & chemo, CVA, COPD. Seizure, fx. R ankle, sciatica, chronic atrial flutter. History of Any Multi-Drug Resistant Organisms: None Reported Past Surgical History: Bowel Resection, Cholecystectomy, Orthopedic Surgery, Tonsillectomy Additional Past Surgical History / Comment(s): right wrist surgery post fracture, robotic colectomy Past Anesthesia/Blood Transfusion Reactions: No Reported Reaction Past Psychological History: Anxiety Smoking Status: Former smoker Past Alcohol Use History: Occasional Past Drug Use History: None Reported - Past Family History Mother Family Medical History: Cancer Additional Family Medical History / Comment(s): Bladder cancer. Sister(s) Family Medical History: Cancer Additional Family Medical History / Comment(s): Colon cancer. Medications and Allergies Home Medications Medication Instructions Recorded Confirmed Type Fluticasone/Umeclidin/Vilanter 1 puff INHALATION RT-DAILY 03/04/21 11/14/21 History [Luigi Oropezata 100-62.5-25] PARoxetine HCL 40 mg PO DAILY 03/04/21 11/14/21 History Atorvastatin [Lipitor] 40 mg PO HS #30 tablet 03/06/21 11/14/21 Rx Apixaban [Eliquis] 5 mg PO BID 09/27/21 11/14/21 History Ipratropium-Albuterol Nebulize 3 ml INHALATION RT-TID ml 10/08/21 11/14/21 Rx [Duoneb 0.5 mg-3 mg/3 ml Soln] Pilocarpine [Salagen] 5 mg PO TID tab 10/08/21 11/14/21 Rx Oxybutynin Chloride [Oxybutynin 10 mg PO DAILY 10/20/21 11/14/21 History Chloride ER] ALPRAZolam [Xanax] 0.5 mg PO BID PRN #6 tab 10/22/21 11/14/21 Rx Diphenox-Atrop 2.5-0.025 mg 2 tab PO BID PRN #6 tab 10/22/21 11/14/21 Rx [Lomotil] Psyllium Husk 100% [Metamucil 6 gm PO BID #1 packet 10/22/21 11/14/21 Rx Packet] Potassium Chloride ER [K-Dur 20] 40 meq PO DAILY 11/14/21 11/14/21 History Acetaminophen Tab [Tylenol] 650 mg PO Q6HR PRN tab 11/20/21 Rx Furosemide [Lasix] 20 mg PO DAILY #30 tab 11/20/21 Rx Isosorbide Mononitrate ER [Imdur] 30 mg PO DAILY #30 tab 11/20/21 Rx Potassium Chloride ER [K-Dur 20] 20 meq PO DAILY #30 tab 11/20/21 Rx hydrALAZINE HCL [Apresoline] 50 mg PO TID #90 tab 11/20/21 Rx Allergies Allergy/AdvReac Type Severity Reaction Status Date / Time benazepril Allergy Anaphylaxis Verified 02/26/22 20:31 Penicillins Allergy Face Verified 02/26/22 20:31 swelling sertraline [From Zoloft] Allergy Face Verified 02/26/22 20:31 swelling Sulfa (Sulfonamide Allergy Face Verified 02/26/22 20:31 Antibiotics) swelling Physical Exam Vitals: Vital Signs Temp Pulse Pulse Resp BP BP Pulse Ox 02/27/22 08:45 97.4 F L 56 L 17 116/57 93 L 02/27/22 06:17 64 15 115/64 94 L 02/27/22 05:05 61 15 111/74 95 02/26/22 20:28 98.4 F 53 L 18 108/51 93 L Intake and Output 02/26/22 02/27/22 02/27/22 22:59 06:59 14:59 Intake Total 25.781 Balance 25.781 Intake: Intake, IV Titration 25.781 Amount Heparin Sod,Pork in 0.45% 25.781 NaCl 25,000 unit In 0.45 % NaCl 1 250ml.bag @ 12 UNITS/KG/HR 7.62 mls/hr IV .Q24H MELINA Rx#: [id number] Other: Weight 63.503 kg Results 02/27/22 03:39 02/27/22 03:39 Cardiac Enzymes 09/09/1502/27/22 02/27/22 Range/Units 03:39 03:39 07:41 AST 30 (14-36) U/L Troponin I 0.141 H* 0.114 H* (0.000-0.034) ng/mL CBC 02/27/22 Range/Units 03:39 WBC 13.7 H (3.8-10.6) k/uL RBC 4.84 (3.80-5.40) m/uL Hgb 13.9 (11.4-16.0) gm/dL Hct 44.1 (34.0-46.0) % Plt Count 372 (150-450) k/uL Comprehensive Metabolic Panel 02/27/22 Range/Units 03:39 Sodium 137 (137-145) mmol/L Potassium 2.1 L* (3.5-5.1) mmol/L Chloride 93 L (98-107) mmol/L Carbon Dioxide 31 H (22-30) mmol/L BUN 14 (7-17) mg/dL Creatinine 0.93 (0.52-1.04) mg/dL Glucose 100 H (74-99) mg/dL Calcium 8.0 L (8.4-10.2) mg/dL AST 30 (14-36) U/L ALT 14 (4-34) U/L Alkaline Phosphatase 136 H (38-126) U/L Total Protein 6.5 (6.3-8.2) g/dL Albumin 3.8 (3.5-5.0) g/dL Current Medications Generic Name Dose Route Start Last Admin Trade Name Freq PRN Reason Stop Dose Admin Alprazolam 0.5 mg 02/27/22 04:48 Alprazolam 0.5 Mg Tab PO BID PRN Anxiety Hydralazine HCl 50 mg 02/27/22 09:00 02/27/22 08:44 Hydralazine Hcl 50 Mg Tab PO 50 mg TID MELINA Administration Isosorbide Mononitrate 30 mg 02/27/22 09:00 02/27/22 08:44 Isosorbide Mononitrate Er 30 Mg Tab.Er.24h PO 30 mg DAILY MELINA Administration Naloxone HCl 0.2 mg 02/27/22 04:42 Naloxone 0.4 Mg/Ml 1 Ml Vial IV Q2M PRN Opioid Reversal Oxybutynin Chloride 10 mg 02/27/22 09:00 02/27/22 08:52 Oxybutynin 10 Mg Tab.Er.24 PO 10 mg DAILY MELINA Administration Intake and Output 02/26/22 02/27/22 02/27/22 22:59 06:59 14:59 Intake Total 25.781 Balance 25.781 Intake: Intake, IV Titration 25.781 Amount Heparin Sod,Pork in 0.45% 25.781 NaCl 25,000 unit In 0.45 % NaCl 1 250ml.bag @ 12 UNITS/KG/HR 7.62 mls/hr IV .Q24H MELINA Rx#: [id number] Other: Weight 63.503 kg 02/27/22 03:39 02/27/22 03:39
[2022-02-27] MEDS ORDERED: DIPHENOX-ATROP 2.5-0.025 MG 1 EACH TAB PO PRN (11:24)
[2022-02-27] MEDS ORDERED: ACETAMINOPHEN TAB 325 MG TAB PO PRN (11:24)
[2022-02-27] MEDS ORDERED: ALBUTEROL HFA INHALER INHALATION SCH (11:30)
[2022-02-27] MEDS ORDERED: IPRATROPIUM 0.5 MG/2.5 ML NEBU INHALATION SCH (12:00)
[2022-02-27] MEDS: SYMBICORT 80-4.5 MCG INHALER INHALATION SCH ×2 (12:27→19:13)
[2022-02-27] MEDS: IPRATROPIUM-ALBUTEROL 3 ML NEB INHALATION SCH ×2 (12:28→19:13)
--- NOTE | 2022-02-27 12:36 | CA ---
Transthoracic Echo Report Name: Yanni Morales Age: 71 Gender: F : 1950 Exam Date: 02/27/2022 08:06 Exam Location: [facility] Ht (in): 64 Wt (lb): 140 Ordering Physician: Ata Alvarez MD Attending/Referring Phys: Pocket Secretary Assembler Jayna Villegas RDCS Procedure CPT: Indications: chf Cardiac Hx: Technical Quality: Fair Contrast 1: Total Dose (mL): Contrast 2: Total Dose (mL): MEASUREMENTS (Male / Female) Normal Values 2D ECHO LV Diastolic Diameter PLAX 4.6 cm 4.2 - 5.9 / 3.9 - 5.3 cm LV Systolic Diameter PLAX 2.9 cm IVS Diastolic Thickness 1.2 cm 0.6 - 1.0 / 0.6 - 0.9 cm LVPW Diastolic Thickness 1.6 cm 0.6 - 1.0 / 0.6 - 0.9 cm LV Relative Wall Thickness 0.6 RV Internal Dim ED PLAX 2.8 cm LA Systolic Diameter LX 4.4 cm 3.0 - 4.0 / 2.7 - 3.8 cm LA Volume 100.3 cm??? 18 - 58 / 22 - 52 cm??? M-MODE Aortic Root Diameter MM 2.9 cm LA Systolic Diameter MM 5.1 cm LA Ao Ratio MM 1.8 AV Cusp Separation MM 1.5 cm DOPPLER AV Peak Velocity 193.5 cm/s AV Peak Gradient 15.0 mmHg AV Mean Velocity 117.2 cm/s AV Mean Gradient 8.9 mmHg AV Velocity Time Integral 32.8 cm LVOT Peak Velocity 168.5 cm/s LVOT Peak Gradient 11.4 mmHg TR Peak Velocity 308.1 cm/s TR Peak Gradient 45.9 mmHg Right Ventricular Systolic Press 41.6 mmHg FINDINGS Left Ventricle Left ventricular ejection fraction is estimated at 50-55%. Mildly increased left ventricular wall thickness. Right Ventricle Normal right ventricular size and function. Moderate pulmonary hypertension. Right Atrium Normal right atrial size. Left Atrium Moderately increased left atrial diameter. Severely increased left atrial volume. Mildly increased left atrial area. Mitral Valve Structurally normal mitral valve. Mild mitral regurgitation. Aortic Valve Mild aortic stenosis with a peak gradient of 27.51 mmHg and a mean gradient of 14.78 mmHg. Tricuspid Valve Structurally normal tricuspid valve. Mild tricuspid regurgitation. Pulmonic Valve Structurally normal pulmonic valve. Pericardium Normal pericardium. Aorta Normal size aortic root and proximal ascending aorta. CONCLUSIONS Mild LVH with preserved LV systolic function Moderately elevated RVSP Left atrial enlargement Previewed by: Dr. Butch Michaud MD (Electronically Signed) Final Date: 27 February 2022 12:35
[2022-02-27] MEDS: PARoxetine 20 MG TAB PO SCH (12:43)
[2022-02-27 14:40] LABS: Calcium 7.4 mg/dL (8.4-10.2)
[2022-02-27 14:59] LABS: Potassium 2.3 mmol/L (3.5-5.1)
[2022-02-27] MEDS: PSYLLIUM HUSK 100% 6 GM PACKET PO SCH ×2 (15:05→21:00)
[2022-02-27] MEDS: hydrALAZINE HCL 25 MG TAB PO SCH ×2 (15:05→20:58)
--- NOTE | 2022-02-27 16:25 | P.HPIM ---
History of Present Illness H&P Date: 02/27/22 Chief Complaint: Low potassium 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 Chronic stable medical conditions include GERD, hypertension, colon cancer, seizure, sciatica, COPD. February 2021 - right brainstem thalamic stroke. Atrial flutter-fibrillation on eliquis. Was in the hospital from September 27 through October 08 with right ankle fracture. was taken to the OR Was in atrial flutter. In the perioperative period patient went into a asystole. 1 minute of CPR. Surgery was postponed. Taken to the ICU. Had atrial flutter and possible V. tach. cardiac catheterization.- No significant disease. chronic dry mouth.-On Sal[place] . Diastolic CHF Patient has gone to see her family doctor and was called that her potassium was running very low. In the ER protections found to be 2.1. Patient stated her appetite has been very poor. She's been losing weight. Patient has long- standing intermittent diarrhea. Up to about 4 times a p.m. She is also on Lasix for CHF. Patient uses a cane or walker when she goes outside. Patient is rather anxious. I did talk to patient's on the phone. No fever no chills. No respiratory symptoms. Remains in atrial flutter. Review of systems: GEN.: Tired, poor appetite EYES: None HEENT: Dry mouth NECK: None RESPIRATORY: None CARDIOVASCULAR: None GASTROINTESTINAL: Chronic diarrhea GENITOURINARY: None MUSCULOSKELETAL: Joint pains] LYMPHATICS: None HEMATOLOGICAL: None PSYCHIATRY: Occasional confusion, anxiety NEUROLOGICAL: None Past medical history to include: Colon cancer treated with chemotherapy and surgery in 2016, sciatica, essential hypertension, GERD, COPD. right brainstem thalamic stroke in February 2021, chronic dry mouth, major depressive disorder per psychiatry Social history: . Smoked less than a pack a day for 45 years stopped in 2017. Alcohol occasionally. Family history: Bladder cancer Physical examination: VITAL SIGNS: 97.4, 56, 17, 116/57, 93% on 2 L GENERAL: BMI 24 reclining in bed, anxious. EYES: Pupils equal. Conjunctiva normal. HEENT: External appearance of nose and ears normal, oral cavity dry mucous membranes NECK: JVD not raised; masses not palpable. HEART: Heart sounds irregular; no edema. LUNGS: Respiratory rate increased; decreased breath sounds. ABDOMEN: Soft, nontender, liver spleen not palpable, no masses palpable. PSYCH: Alert and oriented x3; mood and affect anxious. MUSCULOSKELETAL:No Clubbing/cyanosis;muscles-grossly intact. OA. LYMPHATICS: No lymph nodes palpable in neck and axilla INVESTIGATIONS, reviewed in the clinical context: WBC 13.7 hemoglobin 13.9 platelets 372 sodium 137 potassium 2.1 bicarbonate 31 and 14 creatinine 0.93 Troponin I 0.141, 0.114, 0.110 proBNP 3520 EKG tracing personally reviewed by me-atrial flutter. Rate 53. PVCs. Chest x-ray film personally reviewed by me-some chronic changes Previous studies: 2-D echocardiogram [September 2021]: Severe concentric LVH. EF 55-60%. Possible LVOT obstruction. Moderate MR. Cardiac catheterization [September 2021]: Mild nonobstructive disease Assessment and plan: -Severe hypokalemia, secondary to being on Lasix and chronic intermittent diarrhea. Note that patient's oral intake is poor. Aggressive replacement of potassium. Follow labs -Metabolic alkalosis due to diuresis Gentle hydration overnight with lactated Ringer.. -Troponinemia. No cardiac symptoms. No ACS. Likely from chronic CHF. -chronic congestive heart failure exacerbation from preserved LV function/diastolic likely secondary to atrial flutter fibrillation Fluid restriction 2000 mL a. -Chronic right ankle trimalleolar fracture secondary to fall Close reduction and long leg splint. Surgery down the line By Dr. John -COPD in a X smoker [facility], [place] -Moderate mitral regurgitation Follow clinically -Chronic xerostomia [place] -Primary osteoarthritis Pain medications as needed -Hypertensive heart disease -Chronic urinary stress incontinence Oxybutynin -Major depressive disorder. In remission Xanax 0.5 mg twice a day when necessary, Paxil 40 mg daily. -Essential hypertension Hydralazine 25 mg 3 times a day -Persistent atrial flutter fibrillation: Heart rate controlled. eliquis. -Full code Replace potassium. Follow lites. LR overnight. Significant alkalosis from volume contraction. Patient oral intake has been very poor. Dose of hydralazine cutback. Care was discussed with the patient. Metamucil added for chronic intermittent diarrhea. Care was discussed length with patient. Questions answered. Given the complexity and severity of patient's condition expect the patient to be in the hospital at least for 2 overnights Past Medical History Past Medical History: Cancer, COPD, GERD/Reflux, GI Bleed, Hypertension, Musculoskeletal Disorder Additional Past Medical History / Comment(s): Colon cancer 2016/right colectomy- had surg. & chemo, CVA, COPD. Seizure, fx. R ankle, sciatica, chronic atrial flutter. History of Any Multi-Drug Resistant Organisms: None Reported Past Surgical History: Bowel Resection, Cholecystectomy, Orthopedic Surgery, Tonsillectomy Additional Past Surgical History / Comment(s): right wrist surgery post fracture, robotic colectomy Past Anesthesia/Blood Transfusion Reactions: No Reported Reaction Past Psychological History: Anxiety Smoking Status: Former smoker Past Alcohol Use History: Occasional Past Drug Use History: None Reported - Past Family History Mother Family Medical History: Cancer Additional Family Medical History / Comment(s): Bladder cancer. Sister(s) Family Medical History: Cancer Additional Family Medical History / Comment(s): Colon cancer. Medications and Allergies Home Medications Medication Instructions Recorded Confirmed Type Fluticasone/Umeclidin/Vilanter 1 puff INHALATION RT-DAILY 03/04/21 02/27/22 History [Trelegy Ellipta 100-62.5-25] PARoxetine HCL 40 mg PO DAILY 03/04/21 02/27/22 History Atorvastatin [Lipitor] 40 mg PO HS #30 tablet 03/06/21 02/27/22 Rx Apixaban [Eliquis] 5 mg PO BID 09/27/21 02/27/22 History Pilocarpine [Salagen] 5 mg PO TID tab 10/08/21 02/27/22 Rx Oxybutynin Chloride [Oxybutynin 10 mg PO DAILY 10/20/21 02/27/22 History Chloride ER] ALPRAZolam [Xanax] 0.5 mg PO BID PRN #6 tab 10/22/21 02/27/22 Rx Diphenox-Atrop 2.5-0.025 mg 2 tab PO BID PRN #6 tab 10/22/21 02/27/22 Rx [Lomotil] Acetaminophen Tab [Tylenol] 650 mg PO Q6HR PRN tab 11/20/21 02/27/22 Rx Furosemide [Lasix] 20 mg PO DAILY #30 tab 11/20/21 02/27/22 Rx Isosorbide Mononitrate ER [Imdur] 30 mg PO DAILY #30 tab 11/20/21 02/27/22 Rx Potassium Chloride ER [K-Dur 20] 20 meq PO DAILY #30 tab 11/20/21 02/27/22 Rx Albuterol Inhaler [Ventolin Hfa 2 puff PO RT-Q6H PRN 02/27/22 02/27/22 History Inhaler] Ipratropium-Albuterol Nebulize 3 ml INHALATION RT-TID PRN 02/27/22 02/27/22 History [Duoneb 0.5 mg-3 mg/3 ml Soln] hydrALAZINE HCL 75 mg PO BID-W/MEALS 02/27/22 02/27/22 History Allergies Allergy/AdvReac Type Severity Reaction Status Date / Time benazepril Allergy Anaphylaxis Verified 02/27/22 11:27 Penicillins Allergy Face Verified 02/27/22 11:27 swelling sertraline [From Zoloft] Allergy Face Verified 02/27/22 11:27 swelling Sulfa (Sulfonamide Allergy Face Verified 02/27/22 11:27 Antibiotics) swelling Physical Exam Vitals: Vital Signs Temp Pulse Pulse Resp BP BP Pulse Ox 02/27/22 08:45 97.4 F L 56 L 17 116/57 93 L 02/27/22 06:17 64 15 115/64 94 L 02/27/22 05:05 61 15 111/74 95 02/26/22 20:28 98.4 F 53 L 18 108/51 93 L Intake and Output 02/26/22 02/27/22 02/27/22 22:59 06:59 14:59 Intake Total 25.781 Balance 25.781 Intake: Intake, IV Titration 25.781 Amount Heparin Sod,Pork in 0.45% 25.781 NaCl 25,000 unit In 0.45 % NaCl 1 250ml.bag @ 12 UNITS/KG/HR 7.62 mls/hr IV .Q[facility] Rx#: [id number] Other: Weight 63.503 kg Results CBC & Chem 7: 02/27/22 03:39 02/27/22 13:55 Labs: Abnormal Lab Results - Last 24 Hours (Table) 02/27/22 02/27/22 02/27/22 Range/Units 03:39 03:39 03:39 WBC 13.7 H (3.8-10.6) k/uL RDW 17.0 H (11.5-15.5) % Neutrophils # 11.7 H (1.3-7.7) k/uL Lymphocytes # 0.8 L (1.0-4.8) k/uL Potassium 2.1 L* (3.5-5.1) mmol/L Chloride 93 L (98-107) mmol/L Carbon Dioxide 31 H (22-30) mmol/L Glucose 100 H (74-99) mg/dL Calcium 8.0 L (8.4-10.2) mg/dL Magnesium 1.3 L (1.6-2.3) mg/dL Alkaline Phosphatase 136 H (38-126) U/L Troponin I 0.141 H* (0.000-0.034) ng/mL 02/27/22 Range/Units 07:41 WBC (3.8-10.6) k/uL RDW (11.5-15.5) % Neutrophils # (1.3-7.7) k/uL Lymphocytes # (1.0-4.8) k/uL Potassium (3.5-5.1) mmol/L Chloride (98-107) mmol/L Carbon Dioxide (22-30) mmol/L Glucose (74-99) mg/dL Calcium (8.4-10.2) mg/dL Magnesium (1.6-2.3) mg/dL Alkaline Phosphatase (38-126) U/L Troponin I 0.114 H* (0.000-0.034) ng/mL
[2022-02-27] MEDS ORDERED: LACTATED RINGERS 1,000 ML IV SCH (16:30)
[2022-02-27] MEDS: MAGNESIUM OXIDE 400 MG TAB PO SCH ×2 (17:19→23:39)
[2022-02-27] MEDS: ATORVASTATIN 40 MG TAB PO SCH (20:58)
[2022-02-27] MEDS: APIXABAN 5 MG TAB PO SCH (20:58)
[2022-02-28] MEDS: IPRATROPIUM-ALBUTEROL 3 ML NEB INHALATION SCH ×3 (07:21→19:35)
[2022-02-28] MEDS: SYMBICORT 80-4.5 MCG INHALER INHALATION SCH ×2 (07:23→19:35)
[2022-02-28 07:51] LABS: Anisocytosis Slight; Basophils % (A) 0 %; Eosinophils # (A) 0.1 k/uL (0-0.7); Eosinophils % (A) 1 %; HCT 40.3 % (34.0-46.0); HGB 12.3 gm/dL (11.4-16.0); Hypochromasia Moderate; Lymphocytes % (A) 12 %; MCH 27.9 pg (25.0-35.0); MCHC 30.6 g/dL (31.0-37.0); MCV 91.3 fL (80.0-100.0); Mean Platelet Volume 7.3; Monocytes # (A) 0.6 k/uL (0-1.0); Monocytes % (A) 7 %; Neutrophils # (A) 6.4 k/uL (1.3-7.7); Neutrophils % (A) 79 %; Platelet Count 330 k/uL (150-450); RBC 4.41 m/uL (3.80-5.40); RDW 17.1 % (11.5-15.5); WBC 8.1 k/uL (3.8-10.6)
[2022-02-28 08:06] LABS: Calcium 7.5 mg/dL (8.4-10.2); Magnesium 1.8 mg/dL (1.6-2.3)
[2022-02-28 08:09] LABS: INR 1.2 (<1.2); Prothrombin Time 12.4 sec (9.0-12.0)
[2022-02-28 08:12] LABS: Potassium 2.4 mmol/L (3.5-5.1)
[2022-02-28] MEDS: POTASSIUM CHLORIDE ER 20 MEQ TAB.ER PO SCH ×4 (09:23→14:47)
[2022-02-28] MEDS: PSYLLIUM HUSK 100% 6 GM PACKET PO SCH ×2 (09:23→20:33)
[2022-02-28] MEDS: hydrALAZINE HCL 25 MG TAB PO SCH ×3 (09:24→21:06)
[2022-02-28] MEDS: MAGNESIUM OXIDE 400 MG TAB PO SCH ×3 (09:24→21:06)
[2022-02-28] MEDS: PARoxetine 20 MG TAB PO SCH (09:24)
[2022-02-28] MEDS: ISOSORBIDE MONONITRATE ER 30 MG TAB.ER.24H PO SCH (09:24)
[2022-02-28] MEDS: OXYBUTYNIN 10 MG TAB.ER.24 PO SCH (09:24)
[2022-02-28] MEDS: APIXABAN 5 MG TAB PO SCH ×2 (09:24→20:33)
[2022-02-28 14:41] VITALS: BMI 24.0
[2022-02-28] MEDS ORDERED: POTASSIUM CHLORIDE 20 MEQ in WATER FOR INJECTION 1 100ML.BAG IVPB STA (16:29)
[2022-02-28] MEDS ORDERED: LACTATED RINGERS 1,000 ML IV SCH (16:30)
--- NOTE | 2022-02-28 16:34 | P.PN ---
Progress Note - Text Progress Note Date: 02/28/22 Chief Complaint: Low potassium 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 Chronic stable medical conditions include GERD, hypertension, colon cancer, seizure, sciatica, COPD. February 2021 - right brainstem thalamic stroke. Atrial flutter-fibrillation on eliquis. Was in the hospital from September 27 through October 08 with right ankle fracture. was taken to the OR Was in atrial flutter. In the perioperative period patient went into a asystole. 1 minute of CPR. Surgery was postponed. Taken to the ICU. Had atrial flutter and possible V. tach. cardiac catheterization.- No significant disease. chronic dry mouth.-On [place] . Diastolic CHF Patient has gone to see her family doctor and was called that her potassium was running very low. In the ER protections found to be 2.1. Patient stated her appetite has been very poor. She's been losing weight. Patient has long- standing intermittent diarrhea. Up to about 4 times a p.m. She is also on Lasix for CHF. Patient uses a cane or walker when she goes outside. Patient is rather anxious. I did talk to patient's on the phone. No fever no chills. No respiratory symptoms. Remains in atrial flutter. Admitted with severe hypokalemia. Metabolic alkalosis from diuresis. February 28: In bed. Tired. Potassium being replaced. Still low at 2.4 this morning. Discussed with patient. Blood pressure better after hydralazine dose cutback. Active Medications Acetaminophen (Acetaminophen Tab 325 Mg Tab) 650 mg PO Q6HR PRN PRN Reason: Mild Pain or Fever > 100.5 Albuterol/Ipratropium (Ipratropium-Albuterol 3 Ml Neb) 3 ml INHALATION RT-TID [facility] Last Admin: 02/28/22 11:27 Dose: Not Given Alprazolam (Alprazolam 0.5 Mg Tab) 0.5 mg PO BID PRN PRN Reason: Anxiety Apixaban (Apixaban 5 Mg Tab) 5 mg PO BID [facility]; Protocol Last Admin: 02/28/22 09:24 Dose: 5 mg Atorvastatin Calcium (Atorvastatin 40 Mg Tab) 40 mg PO HS [facility] Last Admin: 02/27/22 20:58 Dose: 40 mg Budesonide/Formoterol Fumarate (Symbicort 80-4.5 Mcg Inhaler) 2 puff INHALATION RT-BID [facility] Last Admin: 02/28/22 07:23 Dose: 2 puff Diphenoxylate HCl/Atropine (Diphenox-Atrop 2.5-0.025 Mg 1 Each Tab) 2 each PO BID PRN PRN Reason: Diarrhea Hydralazine HCl (Hydralazine Hcl 25 Mg Tab) 25 mg PO TID [facility] Last Admin: 02/28/22 14:49 Dose: 25 mg Lactated Ringer's (Lactated Ringers) 1,000 mls @ 50 mls/hr IV .Q20H [facility] Stop: 02/28/22 21:29 Isosorbide Mononitrate (Isosorbide Mononitrate Er 30 Mg Tab.Er.24h) 30 mg PO DAILY [facility] Last Admin: 02/28/22 09:24 Dose: 30 mg Magnesium Oxide (Magnesium Oxide 400 Mg Tab) 400 mg PO TID [facility] Last Admin: 02/28/22 14:50 Dose: 400 mg Naloxone HCl (Naloxone 0.4 Mg/Ml 1 Ml Vial) 0.2 mg IV Q2M PRN PRN Reason: Opioid Reversal Oxybutynin Chloride (Oxybutynin 10 Mg Tab.Er.24) 10 mg PO DAILY [facility] Last Admin: 02/28/22 09:24 Dose: 10 mg Paroxetine HCl (Paroxetine 20 Mg Tab) 40 mg PO DAILY [facility] Last Admin: 02/28/22 09:24 Dose: 40 mg Potassium Chloride (Potassium Chloride Er 20 Meq Tab.Er) 20 meq PO DAILY [facility] Last Admin: 02/28/22 09:23 Dose: 20 meq Psyllium Hydrophilic Mucilloid (Psyllium Husk 100% 6 Gm Packet) 6 gm PO BID [facility] Last Admin: 02/28/22 09:23 Dose: 6 gm Past medical history to include: Colon cancer treated with chemotherapy and surgery in 2015, sciatica, essential hypertension, GERD, COPD. right brainstem thalamic stroke in February 2021, chronic dry mouth, major depressive disorder per psychiatry Social history: . Smoked less than a pack a day for 45 years stopped in 2016. Alcohol occasionally. Family history: Bladder cancer Physical examination: VITAL SIGNS: 97.9, 53, 18, 140/60, 94% on 2 L GENERAL: reclining in bed, more comfortable EYES: Pupils equal. Conjunctiva normal. HEENT: External appearance of nose and ears normal, oral cavity dry mucous membranes NECK: JVD not raised; masses not palpable. HEART: Heart sounds irregular; no edema. LUNGS: Respiratory rate increased; decreased breath sounds. ABDOMEN: Soft, nontender, liver spleen not palpable, no masses palpable. PSYCH: Alert and oriented x3; mood and affect anxious. MUSCULOSKELETAL:No Clubbing/cyanosis;muscles-grossly intact. OA. LYMPHATICS: No lymph nodes palpable in neck and axilla INVESTIGATIONS, reviewed in the clinical context: February 28: Potassium 2.4 creatinine 0.82 WBC 13.7 hemoglobin 13.9 platelets 372 sodium 137 potassium 2.1 bicarbonate 31 and 14 creatinine 0.93 Troponin I 0.141, 0.114, 0.110 proBNP 3520 EKG tracing personally reviewed by me-atrial flutter. Rate 53. PVCs. Chest x-ray film personally reviewed by me-some chronic changes Previous studies: 2-D echocardiogram [September 2021]: Severe concentric LVH. EF 55-60%. Possible LVOT obstruction. Moderate MR. Cardiac catheterization [September 2021]: Mild nonobstructive disease Assessment and plan: -Severe hypokalemia, secondary to being on Lasix and chronic intermittent diarrhea. Note that patient's oral intake is poor.: Not improving Aggressive replacement of potassium. Follow labs -Metabolic alkalosis due to diuresis: Slow to respond Diuretics held -Troponinemia. No cardiac symptoms. No ACS. Likely from chronic CHF. -chronic congestive heart failure exacerbation from preserved LV function/di astolic likely secondary to atrial flutter fibrillation Fluid restriction 2000 mL a. -Chronic right ankle trimalleolar fracture secondary to fall Close reduction and long leg splint. Surgery down the line By Dr. John -COPD in a X smoker [facility] -Moderate mitral regurgitation Follow clinically -Chronic xerostomia [place] -Primary osteoarthritis Pain medications as needed -Hypertensive heart disease -Chronic urinary stress incontinence Oxybutynin -Major depressive disorder. In remission Xanax 0.5 mg twice a day when necessary, Paxil 40 mg daily. -Essential hypertension Hydralazine 25 mg 3 times a day -Persistent atrial flutter fibrillation: Heart rate controlled. eliquis. -Full code Aggressively replace potassium. Give IV potassium. Encourage oral intake. Continue toward diuretics. Replace labs. Did update the patient and the .
[2022-02-28] MEDS: ATORVASTATIN 40 MG TAB PO SCH (20:33)
[2022-03-01] MEDS: IPRATROPIUM-ALBUTEROL 3 ML NEB INHALATION SCH ×3 (08:15→19:34)
[2022-03-01] MEDS: SYMBICORT 80-4.5 MCG INHALER INHALATION SCH ×2 (08:15→19:34)
[2022-03-01 08:20] LABS: African American GFR (CKD) >90 (>60 ml/min/1.73 sqM); Anion Gap 8 mmol/L; Blood Urea Nitrogen 12 mg/dL (7-17); Carbon Dioxide 26 mmol/L (22-30); Chloride 106 mmol/L (98-107); Glucose 83 mg/dL (74-99); Non-African American GFR(CKD) 84 (>60 ml/min/1.73 sqM); Potassium 3.5 mmol/L (3.5-5.1); Sodium 140 mmol/L (137-145)
[2022-03-01] MEDS ORDERED: POTASSIUM CHLORIDE ER 20 MEQ TAB.ER PO STA (08:50)
[2022-03-01] MEDS: APIXABAN 5 MG TAB PO SCH ×2 (08:55→21:42)
[2022-03-01] MEDS: PARoxetine 20 MG TAB PO SCH (08:55)
[2022-03-01] MEDS: POTASSIUM CHLORIDE ER 20 MEQ TAB.ER PO SCH (08:55)
[2022-03-01] MEDS: hydrALAZINE HCL 25 MG TAB PO SCH ×3 (08:55→21:42)
[2022-03-01] MEDS: ISOSORBIDE MONONITRATE ER 30 MG TAB.ER.24H PO SCH (08:55)
[2022-03-01] MEDS: MAGNESIUM OXIDE 400 MG TAB PO SCH ×3 (08:55→21:42)
[2022-03-01] MEDS: OXYBUTYNIN 10 MG TAB.ER.24 PO SCH (08:56)
[2022-03-01] MEDS: PSYLLIUM HUSK 100% 6 GM PACKET PO SCH ×2 (08:56→21:42)
[2022-03-01 12:28] LABS: ALT 12 U/L (4-34); AST 26 U/L (14-36); African American GFR (CKD) >90 (>60 ml/min/1.73 sqM); Albumin 2.8 g/dL (3.5-5.0); Alkaline Phosphatase 96 U/L (38-126); Anion Gap 9 mmol/L; Blood Urea Nitrogen 12 mg/dL (7-17); Calcium 8.4 mg/dL (8.4-10.2); Carbon Dioxide 27 mmol/L (22-30); Chloride 105 mmol/L (98-107); Glucose 115 mg/dL (74-99); Non-African American GFR(CKD) 86 (>60 ml/min/1.73 sqM); Potassium 3.5 mmol/L (3.5-5.1); Sodium 141 mmol/L (137-145); Total Bilirubin 0.5 mg/dL (0.2-1.3); Total Protein 5.3 g/dL (6.3-8.2)
[2022-03-01] MEDS: FUROSEMIDE 20 MG TAB PO SCH (13:24)
--- NOTE | 2022-03-01 15:00 | P.PN ---
Progress Note - Text Progress Note Date: 03/01/22 Chief Complaint: Low potassium This is a pleasant 71-year-old patient, Dr. yT. Chronic stable medical conditions include GERD, hypertension, colon cancer, seizure, sciatica, COPD. February 2021 - right brainstem thalamic stroke. Atrial flutter-fibrillation on eliquis. Was in the hospital from September 27 through October 08 with right ankle fracture. was taken to the OR Was in atrial flutter. In the perioperative period patient went into a asystole. 1 minute of CPR. Surgery was postponed. Taken to the ICU. Had atrial flutter and possible V. tach. cardiac catheterization.- No significant disease. chronic dry mouth.-On [place] . Diastolic CHF Patient has gone to see her family doctor and was called that her potassium was running very low. In the ER protections found to be 2.1. Patient stated her appetite has been very poor. She's been losing weight. Patient has long- standing intermittent diarrhea. Up to about 4 times a p.m. She is also on Lasix for CHF. Patient uses a cane or walker when she goes outside. Patient is rather anxious. I did talk to patient's on the phone. No fever no chills. No respiratory symptoms. Remains in atrial flutter. Admitted with severe hypokalemia. Metabolic alkalosis from diuresis. February 28: In bed. Tired. Potassium being replaced. Still low at 2.4 this morning. Discussed with patient. Blood pressure better after hydralazine dose cutback. March 01: Up in a chair. Eating better. Potassium 3.5. Lasix 20 mg started. Fluid restriction added. Spoke at length with the patient about several things including her COPD, importance of keeping her oxygen on. Also spoke to patient getting in the phone. Repeat labs in the morning. Active Medications Acetaminophen (Acetaminophen Tab 325 Mg Tab) 650 mg PO Q6HR PRN PRN Reason: Mild Pain or Fever > 100.5 Last Admin: 02/28/22 21:06 Dose: 650 mg Albuterol/Ipratropium (Ipratropium-Albuterol 3 Ml Neb) 3 ml INHALATION RT-TID [facility] Last Admin: 03/01/22 11:46 Dose: 3 ml Alprazolam (Alprazolam 0.5 Mg Tab) 0.5 mg PO BID PRN PRN Reason: Anxiety Apixaban (Apixaban 5 Mg Tab) 5 mg PO BID [facility]; Protocol Last Admin: 03/01/22 08:55 Dose: 5 mg Atorvastatin Calcium (Atorvastatin 40 Mg Tab) 40 mg PO HS [facility] Last Admin: 02/28/22 20:33 Dose: 40 mg Budesonide/Formoterol Fumarate (Symbicort 80-4.5 Mcg Inhaler) 2 puff INHALATION RT-BID [facility] Last Admin: 03/01/22 08:15 Dose: 2 puff Diphenoxylate HCl/Atropine (Diphenox-Atrop 2.5-0.025 Mg 1 Each Tab) 2 each PO BID PRN PRN Reason: Diarrhea Furosemide (Furosemide 20 Mg Tab) 20 mg PO DAILY [facility] Last Admin: 03/01/22 13:24 Dose: 20 mg Hydralazine HCl (Hydralazine Hcl 25 Mg Tab) 25 mg PO TID [facility] Last Admin: 03/01/22 08:55 Dose: 25 mg Isosorbide Mononitrate (Isosorbide Mononitrate Er 30 Mg Tab.Er.24h) 30 mg PO DAILY [facility] Last Admin: 03/01/22 08:55 Dose: 30 mg Magnesium Oxide (Magnesium Oxide 400 Mg Tab) 400 mg PO TID [facility] Last Admin: 03/01/22 08:55 Dose: 400 mg Naloxone HCl (Naloxone 0.4 Mg/Ml 1 Ml Vial) 0.2 mg IV Q2M PRN PRN Reason: Opioid Reversal Oxybutynin Chloride (Oxybutynin 10 Mg Tab.Er.24) 10 mg PO DAILY [facility] Last Admin: 03/01/22 08:56 Dose: 10 mg Paroxetine HCl (Paroxetine 20 Mg Tab) 40 mg PO DAILY [facility] Last Admin: 03/01/22 08:55 Dose: 40 mg Potassium Chloride (Potassium Chloride Er 20 Meq Tab.Er) 20 meq PO DAILY [facility] Last Admin: 03/01/22 08:55 Dose: 20 meq Psyllium Hydrophilic Mucilloid (Psyllium Husk 100% 6 Gm Packet) 6 gm PO BID [facility] Last Admin: 03/01/22 08:56 Dose: 6 gm Past medical history to include: Colon cancer treated with chemotherapy and surgery in 2015, sciatica, essential hypertension, GERD, COPD. right brainstem thalamic stroke in February 2021, chronic dry mouth, major depressive disorder per psychiatry Social history: . Smoked less than a pack a day for 45 years stopped in 2017. Alcohol occasionally. Family history: Bladder cancer Physical examination: VITAL SIGNS: 98, 56, 18, 1:30/58, 94% on 2 L GENERAL: Sitting up in a chair, awake EYES: Pupils equal. Conjunctiva normal. HEENT: External appearance of nose and ears normal, oral cavity dry mucous membranes NECK: JVD not raised; masses not palpable. HEART: Heart sounds irregular; no edema. LUNGS: Respiratory rate increased; decreased breath sounds. ABDOMEN: Soft, nontender, liver spleen not palpable, no masses palpable. PSYCH: Alert and oriented x3; mood and affect anxious. MUSCULOSKELETAL:No Clubbing/cyanosis;muscles-grossly intact. OA. INVESTIGATIONS, reviewed in the clinical context: March 01: Potassium 3.5 bicarbonate February 28: Potassium 2.4 creatinine 0.82 WBC 13.7 hemoglobin 13.9 platelets 372 sodium 137 potassium 2.1 bicarbonate 31 and 14 creatinine 0.93 Troponin I 0.141, 0.114, 0.110 proBNP 3520 EKG tracing personally reviewed by me-atrial flutter. Rate 53. PVCs. Chest x-ray film personally reviewed by me-some chronic changes Previous studies: 2-D echocardiogram [September 2021]: Severe concentric LVH. EF 55-60%. Possible LVOT obstruction. Moderate MR. Cardiac catheterization [September 2021]: Mild nonobstructive disease Assessment and plan: -Severe hypokalemia, secondary to being on Lasix and chronic intermittent diarrhea. Note that patient's oral intake is poor.: Better Aggressive replacement of potassium. Follow labs -Metabolic alkalosis due to diuresis: Better Resume Lasix today for CHF. -Troponinemia. No cardiac symptoms. No ACS. Likely from chronic CHF. -Chronic hypoxic respiratory failure from underlying COPD 2 L of oxygen at home -chronic congestive heart failure exacerbation from preserved LV function/ diastolic likely secondary to atrial flutter fibrillation Fluid restriction 1800 mL a day. Resume Lasix 20 mg daily. -COPD in a X smoker [facility] -Moderate mitral regurgitation Follow clinically -Chronic xerostomia [place] -Primary osteoarthritis Pain medications as needed -Hypertensive heart disease -Chronic urinary stress incontinence Oxybutynin -Major depressive disorder. In remission Xanax 0.5 mg twice a day when necessary, Paxil 40 mg daily. -Essential hypertension Hydralazine 25 mg 3 times a day -Persistent atrial flutter fibrillation: Heart rate controlled. eliquis. -Full code Resume Lasix 20 mg a day. Fluid restriction. Potassium supplemented today. Recheck in the morning. Importance of keeping her oxygen on discussed with the patient. Oxygen did drop to 82% on room air. Also spoke to patient has been getting the phone. Updated. Total time spent today about 40 minutes including 25 minutes of discussion.
[2022-03-01] MEDS: ATORVASTATIN 40 MG TAB PO SCH (21:42)
[2022-03-02] MEDS: IPRATROPIUM-ALBUTEROL 3 ML NEB INHALATION SCH (07:12)
[2022-03-02] MEDS: SYMBICORT 80-4.5 MCG INHALER INHALATION SCH (07:12)
[2022-03-02] MEDS: FUROSEMIDE 20 MG TAB PO SCH (08:15)
[2022-03-02] MEDS: hydrALAZINE HCL 25 MG TAB PO SCH (08:15)
[2022-03-02] MEDS: APIXABAN 5 MG TAB PO SCH (08:15)
[2022-03-02] MEDS: POTASSIUM CHLORIDE ER 20 MEQ TAB.ER PO SCH (08:15)
[2022-03-02] MEDS: PARoxetine 20 MG TAB PO SCH (08:15)
[2022-03-02] MEDS: ISOSORBIDE MONONITRATE ER 30 MG TAB.ER.24H PO SCH (08:15)
[2022-03-02] MEDS: MAGNESIUM OXIDE 400 MG TAB PO SCH (08:15)
[2022-03-02] MEDS: OXYBUTYNIN 10 MG TAB.ER.24 PO SCH (08:15)
[2022-03-02] MEDS: PSYLLIUM HUSK 100% 6 GM PACKET PO SCH (08:16)
[2022-03-02 08:24] VITALS: BP 144/69; PULSE 51; RESP 19; TEMP 98.3
[2022-03-02 09:12] LABS: ALT 13 U/L (4-34); AST 29 U/L (14-36); African American GFR (CKD) >90 (>60 ml/min/1.73 sqM); Albumin 2.9 g/dL (3.5-5.0); Alkaline Phosphatase 102 U/L (38-126); Anion Gap 9 mmol/L; Blood Urea Nitrogen 9 mg/dL (7-17); Calcium 8.1 mg/dL (8.4-10.2); Carbon Dioxide 29 mmol/L (22-30); Chloride 102 mmol/L (98-107); Glucose 95 mg/dL (74-99); Non-African American GFR(CKD) 82 (>60 ml/min/1.73 sqM); Sodium 140 mmol/L (137-145); Total Bilirubin 0.7 mg/dL (0.2-1.3); Total Protein 5.4 g/dL (6.3-8.2)
[2022-03-02 09:33] LABS: Potassium 3.5 mmol/L (3.5-5.1)
--- NOTE | 2022-03-03 16:06 | P.DS ---
Providers Date of admission: 02/27/22 04:42 Expected date of discharge: 03/03/22 Attending physician: Juan Villegas Consults: 02/27/22 04:42 Consult Physician Routine Consulting Provider: [facility] Consult Reason/Comments: elevated troponin, chf, hypoK Do you want consulting provider notified?: Yes Primary care physician: [facility] Hospital Course: Chief Complaint: Low potassium 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 Chronic stable medical conditions include GERD, hypertension, colon cancer, seizure, sciatica, COPD. February 2021 - right brainstem thalamic stroke. Atrial flutter-fibrillation on eliquis. Was in the hospital from September 27 through October 08 with right ankle fracture. was taken to the OR Was in atrial flutter. In the perioperative period patient went into a asystole. 1 minute of CPR. Surgery was postponed. Taken to the ICU. Had atrial flutter and possible V. tach. cardiac catheterization.- No significant disease. chronic dry mouth.-On Salagen . Diastolic CHF Patient has gone to see her family doctor and was called that her potassium was running very low. In the ER protections found to be 2.1. Patient stated her appetite has been very poor. She's been losing weight. Patient has long- standing intermittent diarrhea. Up to about 4 times a p.m. She is also on Lasix for CHF. Patient uses a cane or walker when she goes outside. Patient is rather anxious. I did talk to patient's on the phone. No fever no chills. No respiratory symptoms. Remains in atrial flutter. Admitted with severe hypokalemia. Metabolic alkalosis from diuresis. February 28: In bed. Tired. Potassium being replaced. Still low at 2.4 this morning. Discussed with patient. Blood pressure better after hydralazine dose cutback. March 01: Up in a chair. Eating better. Potassium 3.5. Lasix 20 mg started. Fluid restriction added. Spoke at length with the patient about several things including her COPD, importance of keeping her oxygen on. Also spoke to patient getting in the phone. Repeat labs in the morning. March 02: Patient doing better. Oral intake fair. Potassium stable. Continue with by mouth Lasix. Discussed with the patient. Questions answered. Spoke to the nurse. Patient reminded about the importance of keeping her oxygen on. Discussion and discharge planning more than 35 minutes Past medical history to include: Colon cancer treated with chemotherapy and surgery in 2015, sciatica, essential hypertension, GERD, COPD. right brainstem thalamic stroke in February 2021, chronic dry mouth, major depressive disorder per psychiatry Social history: . Smoked less than a pack a day for 45 years stopped in 2016. Alcohol occasionally. Family history: Bladder cancer Physical examination: VITAL SIGNS: 98.3, 51, 19, 144/69, 92% on 2 L GENERAL: Sitting up in bed, awake EYES: Pupils equal. Conjunctiva normal. HEENT: External appearance of nose and ears normal, oral cavity dry mucous membranes NECK: JVD not raised; masses not palpable. HEART: Heart sounds irregular; no edema. LUNGS: Respiratory rate increased; decreased breath sounds. ABDOMEN: Soft, nontender, liver spleen not palpable, no masses palpable. PSYCH: Alert and oriented x3; mood and affect anxious. MUSCULOSKELETAL:No Clubbing/cyanosis;muscles-grossly intact. OA. INVESTIGATIONS, reviewed in the clinical context: March 02: Potassium 3.5, creatinine 0.73, albumin 2.9 February 28: Potassium 2.4 creatinine 0.82 WBC 13.7 hemoglobin 13.9 platelets 372 sodium 137 potassium 2.1 bicarbonate 31 and 14 creatinine 0.93 Troponin I 0.141, 0.114, 0.110 proBNP 3520 EKG tracing personally reviewed by me-atrial flutter. Rate 53. PVCs. Chest x-ray film personally reviewed by me-some chronic changes Previous studies: 2-D echocardiogram [September 2021]: Severe concentric LVH. EF 55-60%. Possible LVOT obstruction. Moderate MR. Cardiac catheterization [September 2021]: Mild nonobstructive disease Assessment and plan: -Severe hypokalemia, secondary to being on Lasix and chronic intermittent diarrhea. Note that patient's oral intake is poor.: Better Aggressive replacement of potassium. Follow labs -Metabolic alkalosis due to diuresis: Better Resume Lasix for CHF. -Troponinemia. No cardiac symptoms. No ACS. Likely from chronic CHF. -Chronic hypoxic respiratory failure from underlying COPD 2 L of oxygen at home -chronic congestive heart failure exacerbation from preserved LV function/diastolic likely secondary to atrial flutter fibrillation Fluid restriction 1800 mL a day. Lasix 20 mg daily. -COPD in a X smoker Jem powell -Moderate mitral regurgitation Follow clinically -Chronic xerostomia Salagen -Primary osteoarthritis Pain medications as needed -Hypertensive heart disease -Chronic urinary stress incontinence Oxybutynin -Major depressive disorder. In remission Xanax 0.5 mg twice a day when necessary, Paxil 40 mg daily. -Essential hypertension Hydralazine 25 mg 3 times a day -Persistent atrial flutter fibrillation: Heart rate controlled. eliquis. -Mild protein calorie malnutrition from decreased oral intake Oral intake encouraged. Ensure supplement. Discussed with patient. -Full code Disposition: Home Plan - Discharge Summary Discharge Rx Participant: No New Discharge Prescriptions: New Psyllium Husk 100% [Metamucil Packet] 6 gm PO BID #60 packet Magnesium Oxide [Mag-Ox] 400 mg PO DAILY #30 tab Continue PARoxetine HCL 40 mg PO DAILY Atorvastatin [Lipitor] 40 mg PO HS #30 tablet Oxybutynin Chloride [Oxybutynin Chloride ER] 10 mg PO DAILY Furosemide [Lasix] 20 mg PO DAILY #30 tab Ipratropium-Albuterol Nebulize [Duoneb 0.5 mg-3 mg/3 ml Soln] 3 ml INHALATION RT-TID PRN PRN Reason: Shortness Of Breath Fluticasone/Umeclidin/Vilanter [Trelegy Ellipta 100-62.5-25] 1 puff INHALATION RT-DAILY Apixaban [Eliquis] 5 mg PO BID Pilocarpine [Salagen] 5 mg PO TID tab Diphenox-Atrop 2.5-0.025 mg [Lomotil] 2 tab PO BID PRN #6 tab PRN Reason: Diarrhea ALPRAZolam [Xanax] 0.5 mg PO BID PRN #6 tab PRN Reason: Anxiety Isosorbide Mononitrate ER [Imdur] 30 mg PO DAILY #30 tab Acetaminophen Tab [Tylenol] 650 mg PO Q6HR PRN tab PRN Reason: Mild Pain Or Fever > 100.5 Albuterol Inhaler [Ventolin Hfa Inhaler] 2 puff PO RT-Q6H PRN PRN Reason: Shortness Of Breath Changed hydrALAZINE HCL 75 mg PO TID #0 Potassium Chloride ER [K-Dur 20] 20 meq PO BID #60 tab Discharge Medication List Fluticasone/Umeclidin/Vilanter [Trelegy Ellipta 100-62.5-25] 1 puff INHALATION RT-DAILY 03/04/21 [History] PARoxetine HCL 40 mg PO DAILY 03/04/21 [History] Atorvastatin [Lipitor] 40 mg PO HS #30 tablet 03/06/21 [Rx] Apixaban [Eliquis] 5 mg PO BID 09/27/21 [History] Pilocarpine [Salagen] 5 mg PO TID tab 10/08/21 [Rx] Oxybutynin Chloride [Oxybutynin Chloride ER] 10 mg PO DAILY 10/20/21 [History] ALPRAZolam [Xanax] 0.5 mg PO BID PRN #6 tab 10/22/21 [Rx] Diphenox-Atrop 2.5-0.025 mg [Lomotil] 2 tab PO BID PRN #6 tab 10/22/21 [Rx] Acetaminophen Tab [Tylenol] 650 mg PO Q6HR PRN tab 11/20/21 [Rx] Furosemide [Lasix] 20 mg PO DAILY #30 tab 11/20/21 [Rx] Isosorbide Mononitrate ER [Imdur] 30 mg PO DAILY #30 tab 11/20/21 [Rx] Albuterol Inhaler [Ventolin Hfa Inhaler] 2 puff PO RT-Q6H PRN 02/27/22 [History] Ipratropium-Albuterol Nebulize [Duoneb 0.5 mg-3 mg/3 ml Soln] 3 ml INHALATION RT-TID PRN 02/27/22 [History] Magnesium Oxide [Mag-Ox] 400 mg PO DAILY #30 tab 03/02/22 [Rx] Potassium Chloride ER [K-Dur 20] 20 meq PO BID #60 tab 03/02/22 [Rx] Psyllium Husk 100% [Metamucil Packet] 6 gm PO BID #60 packet 03/02/22 [Rx] hydrALAZINE HCL 75 mg PO TID #0 03/02/22 [Rx] Follow up Appointment(s)/Referral(s): Davis Ty DO [Primary Care Provider] - 03/04/22 2:40 pm Christo Alston MD [STAFF PHYSICIAN] - 03/19/22 2:45 pm Claudia Key MD [STAFF PHYSICIAN] - 04/05/22 3:30 pm (diarrhea) Patient Instructions/Handouts: Hypokalemia (DC) Discharge Disposition: HOME WITH HOME HEALTH SERVICES
== END 2022-03-02 11:32 | disposition home health service (06) | DRG 640 ==
LOC: EC 20:10 → 3SCARD 02-27 04:42
PROVIDERS: ADMIT Hospitalist; ATTEND Hospitalist
DX: E87.6 Hypokalemia (principal); I50.33 Acute on chronic diastolic (congestive) heart failure; E44.1 Mild protein-calorie malnutrition; I48.92 Unspecified atrial flutter; J96.11 Chronic respiratory failure with hypoxia; Z68.1 Body mass index [BMI] 19.9 or less, adult; E87.3 Alkalosis; S82.851D Displaced trimalleolar fracture of right lower leg, subsequent encounter for closed fracture with routine healing; F32.9 Major depressive disorder, single episode, unspecified; F41.9 Anxiety disorder, unspecified; I11.0 Hypertensive heart disease with heart failure; E78.5 Hyperlipidemia, unspecified; T50.1X5A Adverse effect of loop [high-ceiling] diuretics, initial encounter; T50.2X5A Adverse effect of carbonic-anhydrase inhibitors, benzothiadiazides and other diuretics, initial encounter; E83.42 Hypomagnesemia; R19.7 Diarrhea, unspecified; I08.1 Rheumatic disorders of both mitral and tricuspid valves; I48.91 Unspecified atrial fibrillation; J44.9 Chronic obstructive pulmonary disease, unspecified; K21.9 Gastro-esophageal reflux disease without esophagitis; K11.7 Disturbances of salivary secretion; M19.91 Primary osteoarthritis, unspecified site; N39.3 Stress incontinence (female) (male); R56.9 Unspecified convulsions; Z79.01 Long term (current) use of anticoagulants; Z79.51 Long term (current) use of inhaled steroids; Z79.899 Other long term (current) drug therapy; Z85.038 Personal history of other malignant neoplasm of large intestine; Z85.51 Personal history of malignant neoplasm of bladder; Z86.73 Personal history of transient ischemic attack (TIA), and cerebral infarction without residual deficits; Z87.891 Personal history of nicotine dependence; Z92.21 Personal history of antineoplastic chemotherapy; X58.XXXA Exposure to other specified factors, initial encounter; Z88.8 Allergy status to other drugs, medicaments and biological substances; Z88.2 Allergy status to sulfonamides; Z88.0 Allergy status to penicillin; Z87.19 Personal history of other diseases of the digestive system; Z90.49 Acquired absence of other specified parts of digestive tract
CPT/HCPCS: 36415; 71046; 80048; 80053; 83735; 83880; 84484; 85025; 85610; 93306; 94640; 94760; 96365; 96367; 96375; 96376; 99291

== ENCOUNTER 2022-03-15 07:56 | Day surgery (SDC) | payer MEDICARE ==
[2022-03-15] MEDS ORDERED: SODIUM CHLORIDE 0.9% 500 ML 500 ML IV ONE (08:14)
[2022-03-15 08:24] VITALS: TEMP 988.9
[2022-03-15] MEDS ORDERED: fentaNYL (PF) 50 MCG/ML 2 ML AMP ONE (08:43)
[2022-03-15] MEDS ORDERED: BENZOCAINE SPRAY 1 CAN TOPICAL ONE (09:22)
[2022-03-15] MEDS ORDERED: MIDAZOLAM 2 MG/2 ML VIAL IV ONE (09:22)
[2022-03-15] MEDS ORDERED: fentaNYL (PF) 50 MCG/ML 2 ML AMP IV ONE (09:24)
[2022-03-15 10:57] VITALS: BP 128/72; PULSE 49; RESP 22
--- NOTE | 2022-03-16 08:14 | ECHOT ---
TRANSESOPHAGEAL ECHOCARDIOGRAM INDICATION: Mitral regurgitation. PROCEDURE NOTE: After obtaining informed consent, transesophageal echocardiogram was performed in left lateral position using an Omniplane probe. Local and IV sedation were obtained using Xylocaine spray, 1 mg of Versed and 50 mcg of fentanyl. The patient tolerated the procedure well without any obvious immediate complications. 2D color Doppler and spectral analysis had been performed. A total sedation time was 5 minutes. FINDINGS: 1. Mitral valve: Mitral valve appears thickened, shows mitral annular calcifications with soes-is-venejfms central mitral regurgitation. Left atrial appendage is free of thrombus. 2. Left atrium appears enlarged. 3. Right atrium and right ventricle within normal limits. 4. Left ventricle has normal size and systolic function, shows concentric left ventricular hypertrophy. Aortic root measures within normal limits. Aortic valve is a 3-leaflet valve, appears calcified with mild restriction in leaflet mobility by calculated valve area of 1.5 sq cm. There is moderate tricuspid regurgitation noted. There is no evidence of ghxf-gx-[id number] shunt by color-flow Doppler or right- to-left shunt by agitated saline contrast study. CONCLUSIONS: 1. Dhlz-ft-modyyaab mitral regurgitation. 2. Normal LV function. 3. Moderate tricuspid regurgitation. PLAN: I reviewed the echo findings with the patient and told her that her mitral regurgitation is not bad enough for us to do anything at this time. She is in atrial fibrillation with slow ventricular rate, but she is not on any rate limiting medications at this time. MMODL / IJN: [id number] /
== END 2022-03-15 10:57 | disposition home or self-care (01) ==
LOC: CATHCVL 07:56
PROVIDERS: ATTEND Internal Medicine Cardiovascular Disease
DX: I08.1 Rheumatic disorders of both mitral and tricuspid valves (principal); I48.19 Other persistent atrial fibrillation; J44.9 Chronic obstructive pulmonary disease, unspecified; I10 Essential (primary) hypertension; E78.2 Mixed hyperlipidemia; Z72.0 Tobacco use; Z88.0 Allergy status to penicillin; Z88.2 Allergy status to sulfonamides; Z88.8 Allergy status to other drugs, medicaments and biological substances; Z79.01 Long term (current) use of anticoagulants; Z79.82 Long term (current) use of aspirin; Z79.51 Long term (current) use of inhaled steroids; Z79.899 Other long term (current) drug therapy
CPT/HCPCS: 93312; 93320; 93325; J2250; J3010

== ENCOUNTER 2022-03-26 08:51 | Inpatient (IN) | payer MEDICARE ==
--- NOTE | 2022-03-26 09:33 | ED ---
General Adult HPI - General Chief complaint: Fall Stated complaint: Fall, left hand injury Time Seen by Provider: 03/26/22 08:56 Source: patient, RN notes reviewed, old records reviewed Mode of arrival: wheelchair Limitations: no limitations - History of Present Illness Initial comments: 71-year-old female with fall and head injury which occurred yesterday evening. Patient states she stood and fell forward injuring her left wrist and hitting her forehead. She is currently on Eliquis. No loss consciousness. Patient has had pain and left wrist since the fall. No other injury reported. No preceding palpitations or chest pain. - Related Data Home Medications Medication Instructions Recorded Confirmed Fluticasone/Umeclidin/Vilanter 1 puff INHALATION RT-DAILY 03/04/21 03/26/22 [Trelegy Ellipta 100-62.5-25] PARoxetine HCL 40 mg PO DAILY 03/04/21 03/26/22 Apixaban [Eliquis] 5 mg PO BID 09/27/21 03/26/22 Oxybutynin Chloride [Oxybutynin 10 mg PO DAILY 10/20/21 03/26/22 Chloride ER] Albuterol Inhaler [Ventolin Hfa 2 puff PO RT-Q6H PRN 02/27/22 03/26/22 Inhaler] Ipratropium-Albuterol Nebulize 3 ml INHALATION RT-TID PRN 02/27/22 03/26/22 [Duoneb 0.5 mg-3 mg/3 ml Soln] hydrALAZINE HCL 75 mg PO BID 03/12/22 03/26/22 Previous Rx's Medication Instructions Recorded Atorvastatin [Lipitor] 40 mg PO HS #30 tablet 03/06/21 Pilocarpine [Salagen] 5 mg PO TID tab 10/08/21 ALPRAZolam [Xanax] 0.5 mg PO BID PRN #6 tab 10/22/21 Diphenox-Atrop 2.5-0.025 mg 2 tab PO BID PRN #6 tab 10/22/21 [Lomotil] Acetaminophen Tab [Tylenol] 650 mg PO Q6HR PRN tab 11/20/21 Furosemide [Lasix] 20 mg PO DAILY #30 tab 11/20/21 Isosorbide Mononitrate ER [Imdur] 30 mg PO DAILY #30 tab 11/20/21 Magnesium Oxide [Mag-Ox] 400 mg PO DAILY #30 tab 03/02/22 Potassium Chloride ER [K-Dur 20] 20 meq PO BID #60 tab 03/02/22 Psyllium Husk 100% [Metamucil 6 gm PO BID #60 packet 03/02/22 Packet] Allergies Allergy/AdvReac Type Severity Reaction Status Date / Time benazepril Allergy Anaphylaxis Verified 03/26/22 10:55 Penicillins Allergy Face Verified 03/26/22 10:55 swelling sertraline [From Zoloft] Allergy Face Verified 03/26/22 10:55 swelling Sulfa (Sulfonamide Allergy Face Verified 03/26/22 10:55 Antibiotics) swelling Review of Systems ROS Statement: Those systems with pertinent positive or pertinent negative responses have been documented in the HPI. ROS Other: All systems not noted in ROS Statement are negative. Past Medical History Past Medical History: Cancer, COPD, GERD/Reflux, GI Bleed, Hypertension, Musculoskeletal Disorder Additional Past Medical History / Comment(s): Colon cancer 2015/right colectomy- had surg. 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 Seizure, fx. R ankle, sciatica, chronic diarrhea, chronic atrial flutter, recent adm. [facility] for low potassium, supposed to use oxygen RTC but doesn't always, not sure what it's set at History of Any Multi-Drug Resistant Organisms: None Reported Past Surgical History: Bowel Resection, Cholecystectomy, Orthopedic Surgery, Tonsillectomy Additional Past Surgical History / Comment(s): right wrist surgery post fr acture, robotic colectomy Past Anesthesia/Blood Transfusion Reactions: No Reported Reaction Past Psychological History: Anxiety Smoking Status: Former smoker - Past Family History Mother Family Medical History: Cancer Additional Family Medical History / Comment(s): Bladder cancer. Sister(s) Family Medical History: Cancer Additional Family Medical History / Comment(s): Colon cancer. General Exam Limitations: no limitations General appearance: alert, in no apparent distress Head exam: Present: other (Right forehead ecchymosis and soft tissue swelling) Eye exam: Present: PERRL Neck exam: Present: normal inspection. Absent: tenderness, meningismus Respiratory exam: Present: normal lung sounds bilaterally. Absent: respiratory distress, wheezes Cardiovascular Exam: Present: normal rhythm, bradycardia GI/Abdominal exam: Present: soft. Absent: distended, tenderness, guarding Extremities exam: Present: joint swelling (Left wrist and hand swelling and ecchymosis) Neurological exam: Present: alert, oriented X3, CN II-XII intact. Absent: motor sensory deficit Psychiatric exam: Present: normal affect, normal mood Skin exam: Present: warm, dry Course Vital Signs 03/26/22 03/26/22 09:04 10:14 Temperature 98.0 F Pulse Rate 42 L 40 L Respiratory 18 18 Rate Blood Pressure 130/58 O2 Sat by Pulse 90 L 96 Oximetry EKG Findings - EKG Comments: EKG Findings:: Atrial flutter with bradycardia, rate is 40, QRS duration 83, QTC [address] segment elevation. Medical Decision Making - Medical Decision Making 71-year-old fall yesterday with head injury wrist injury. CT brain and wrist are negative. Patient is noted to be bradycardic on exam and found to be in atrial flutter with slow ventricular response, in the 30s predominantly. Her fall was near syncopal, likely orthostatic. She has normal laboratory testing. She'll be observed on telemetry overnight admitted to Dr. Villegas with cardiology on consult. - Lab Data Result diagrams: 03/26/22 09:28 03/26/22 09:28 Lab Results 03/26/22 03/26/22 03/26/22 Range/Units 09:28 09:28 09:28 WBC 8.3 (3.8-10.6) k/uL RBC 4.17 (3.80-5.40) m/uL Hgb 11.9 (11.4-16.0) gm/dL Hct 38.7 (34.0-46.0) % MCV 92.6 (80.0-100.0) fL MCH 28.5 (25.0-35.0) pg MCHC 30.8 L (31.0-37.0) g/dL RDW 15.3 (11.5-15.5) % Plt Count 278 (150-450) k/uL MPV 7.8 Neutrophils % 76 % Lymphocytes % 11 % Monocytes % 8 % Eosinophils % 2 % Basophils % 0 % Neutrophils # 6.3 (1.3-7.7) k/uL Lymphocytes # 0.9 L (1.0-4.8) k/uL Monocytes # 0.7 (0-1.0) k/uL Eosinophils # 0.2 (0-0.7) k/uL Basophils # 0.0 (0-0.2) k/uL Hypochromasia Moderate PT 12.5 H (9.0-12.0) sec INR 1.2 H (<1.2) APTT 29.3 (22.0-30.0) sec Sodium 136 L (137-145) mmol/L Potassium 4.1 (3.5-5.1) mmol/L Chloride 101 (98-107) mmol/L Carbon Dioxide 22 (22-30) mmol/L Anion Gap 13 mmol/L BUN 15 (7-17) mg/dL Creatinine 1.18 H (0.52-1.04) mg/dL Est GFR (CKD-EPI)AfAm 53 (>60 ml/min/1.73 sqM) Est GFR (CKD-EPI)NonAf 46 (>60 ml/min/1.73 sqM) Glucose 81 (74-99) mg/dL Calcium 8.8 (8.4-10.2) mg/dL Total Bilirubin 1.2 (0.2-1.3) mg/dL AST 29 (14-36) U/L ALT 13 (4-34) U/L Alkaline Phosphatase 108 (38-126) U/L Total Protein 6.6 (6.3-8.2) g/dL Albumin 4.0 (3.5-5.0) g/dL Disposition Clinical Impression: Atrial flutter, Pre-syncope, Bradycardia Disposition: ADMITTED IP TO THIS HOSP Condition: Stable Is patient prescribed a controlled substance at d/c from ED?: No Referrals: Davis Ty DO [Primary Care Provider] - 1-2 days Time of Disposition: 11:24
[2022-03-26 09:42] LABS: Basophils % (A) 0 %; Eosinophils # (A) 0.2 k/uL (0-0.7); Eosinophils % (A) 2 %; HCT 38.7 % (34.0-46.0); HGB 11.9 gm/dL (11.4-16.0); Hypochromasia Moderate; Lymphocytes # (A) 0.9 k/uL (1.0-4.8); Lymphocytes % (A) 11 %; MCH 28.5 pg (25.0-35.0); MCHC 30.8 g/dL (31.0-37.0); MCV 92.6 fL (80.0-100.0); Mean Platelet Volume 7.8; Monocytes # (A) 0.7 k/uL (0-1.0); Monocytes % (A) 8 %; Neutrophils # (A) 6.3 k/uL (1.3-7.7); Neutrophils % (A) 76 %; Platelet Count 278 k/uL (150-450); RBC 4.17 m/uL (3.80-5.40); RDW 15.3 % (11.5-15.5); WBC 8.3 k/uL (3.8-10.6)
[2022-03-26 09:53] LABS: INR 1.2 (<1.2); Partial Thromboplastin Time 29.3 sec (22.0-30.0); Prothrombin Time 12.5 sec (9.0-12.0)
[2022-03-26 09:54] LABS: Calcium 8.8 mg/dL (8.4-10.2); Potassium 4.1 mmol/L (3.5-5.1); Total Bilirubin 1.2 mg/dL (0.2-1.3); Total Protein 6.6 g/dL (6.3-8.2)
--- NOTE | 2022-03-26 10:10 | CT ---
EXAMINATION TYPE: CT brain daxa moore con DATE OF EXAM: 03/26/2022 COMPARISON: 11/17/2021 HISTORY: fall CT DLP: 1399.[address] of the brain was performed. The ventricles, basal cisterns and sulci overlying the cerebral convexities demonstrate mild enlargem ent. There is no evidence for intracranial hemorrhage or sulcal effacement. There is decreased attenuatio n about the periventricular white matter and deep white matter of both cerebral hemispheres, compatib le with chronic small vessel ischemia. No mass effects are seen. If symptoms persist consider MRI. Osseous calvarium is intact. Frontal scalp hematoma. IMPRESSION: 1. Age related atrophic and chronic small vessel ischemic change without acute intracranial process seen at this time. CT Cervical Spine: Unenhanced CT of the cervical spine was performed with bone and soft tissue window settings submitted . Coronal and sagittal reconstruction is obtained. There is normal alignment and prevertebral soft tissues. No evidence for acute cervical fracture . Scattered degenerative disc disease and spondylosis. Biapical scarring. Small pleural effusions note d. IMPRESSION: 1. No evidence for acute fracture or subluxation of the cervical spine.
--- NOTE | 2022-03-26 10:12 | XR ---
Left hand and left wrist HISTORY: Trauma and pain 4 views of the left wrist, 3 views of the left hand Correlation to CT scan left wrist 02/07/2017 Old ulnar styloid fracture shows nonfused appearance. Distal metaphyseal left radius shows an irregul ar appearance, remodeling consistent with old fracture and secondary osteoarthritis. Bone mineralizat ion is reduced. Alignment is maintained. Some degenerative changes are present in the intercarpal row , carpometacarpal joint of the first digit, distal interphalangeal joints of the second and third dig its. Soft tissue swelling is noted. IMPRESSION: No acute fracture or dislocation.
[2022-03-26] MEDS ORDERED: NALOXONE 0.4 MG/ML 1 ML VIAL IV PRN (11:22)
[2022-03-26] MEDS ORDERED: ACETAMINOPHEN TAB 325 MG TAB PO PRN (11:22)
[2022-03-26] MEDS ORDERED: ALPRAZolam 0.5 MG TAB PO PRN (12:44)
[2022-03-26] MEDS ORDERED: IPRATROPIUM-ALBUTEROL 3 ML NEB INHALATION PRN (12:44)
[2022-03-26] MEDS ORDERED: DIPHENOX-ATROP 2.5-0.025 MG 1 EACH TAB PO PRN (12:44)
[2022-03-26] MEDS ORDERED: NON FORMULARY DRUG (Albuterol Inhaler 90 MCG Puff) PO PRN (12:44)
--- NOTE | 2022-03-26 13:00 | XR ---
EXAMINATION TYPE: XR chest 2V DATE OF EXAM: 03/26/2022 COMPARISON: Chest x-ray February 27, 2022 HISTORY: Syncope and weakness. TECHNIQUE: Frontal and lateral views of the chest are obtained. FINDINGS: There is is chronic parenchymal changes bilaterally without suspicious new focal air space opacity or pneumothorax seen. Tiny left pleural effusion or pleural thickening redemonstrated. The cardiac silhouette size is upper limits of normal currently. Underlying dextroconvex scoliosis center ed upper lumbar spine is redemonstrated. IMPRESSION: Chronic changes without new suspicious acute pulmonary process.
[2022-03-26] MEDS ORDERED: SODIUM CHLORIDE 0.9% 1,000 ML IV STA (13:24)
--- NOTE | 2022-03-26 13:35 | P.CRDCN ---
History of Present Illness History of present illness: This is a pleasant 71-year-old female past medical history significant for bradycardia, atrial flutter, paroxysmal atrial fibrillation on Eliquis, CVA, hypertension, GERD, colon cancer, seizure disorder, [place], COPD, former tobacco use. She follows in the office with Dr. Key. We are asked to see in consultation for bradycardia. Patient presents to the ER after a fall. She s tates she stood up from her couch, walking to the bathroom, she states she felt a "weird" feeling in her head. She turned quickly and then fell to the ground. She denies any lightheadedness, dizziness, syncope, loss of consciousness, chest pain shortness of breath. She denies any focal weakness, headache, numbness, tingling, loss of bladder or bowel, vision or speech changes. She denies any other symptoms prior to falling. She cannot fully describe what she felt. Difficult to obtain full story from the patient. She does endorse increased diarrhea, 3 times per day. She is following up outpatient for this and was started on Lomotil. Patient was recently admitted to the hospital on 02/27/2022 wi th hypokalemia. DIAGNOSTICS * EKG reveals atrial flutter, heart rate 40 * Holter monitor in the office here 12/2021 revealed atrial flutter with heart rates 4167. No pauses more than 2 seconds. * Echocardiogram 02/27/2022howed an EF of 5055 %moderate pulmonary hypertension, mild aortic stenosis with a peak/mean gradient of 27 mmHg/14 mmHg, RVSP 41 mmHg * Telemetry tracings indicate atrial flutter with heart rates 3840s. * Chest xray chronic changes, no acute cardiopulmonary process * Wrist and hand x-ray with no reported fracture. * CT head and cervical spine reported no evidence of acute fracture or subluxation of the cervical spine, age-related atrophic and chronic small vessel ischemic changes without acute intracranial process. * Laboratory reviewed, sodium 136, potassium 4.1, BUN 15, serum creatinine 1.18, WBC 8.3, hemoglobin 11.9, platelets 278 * Current home cardiac medications include hydralazine 75 mg twice a day, potassium chloride, Imdur 30 mg daily, Lasix 20 mg daily, atorvastatin 40 mg daily, Eliquis 5 mg twice a day. * She underwent cardiac catheterization Dr. Key on 10/01/2021 which revealed nonobstructive coronary artery disease. REVIEW OF SYSTEMS At the time of my exam: CONSTITUTIONAL: Denies fever or chills. CARDIOVASCULAR: Denies chest pain, shortness of breath, orthopnea, PND or palpitations. RESPIRATORY: Denies cough. GASTROINTESTINAL: +Diarrhea Denies abdominal pain, constipation, nausea or vomiting. MUSCULOSKELETAL: Denies myalgias. NEUROLOGIC: Denies numbness, tingling, headacbe or weakness. ENDOCRINE: Denies fatigue, weight change, polydipsia or polyurina. GENITOURINARY: Denies burning, hematuria or urgency with micturation. HEMATOLOGIC: Denies history of anemia or bleeding. PHYSICAL EXAMINATION Blood pressure 148/70, heart rate 40, afebrile, saturation 97% on room air CONSTITUTIONAL: No apparent distress. HEENT: Bruising right side of forehead from fall. Bruising across left eye. Head is normocephalic. Pupils are equal, round. Sclerae anicteric. Mucous membranes of the mouth are moist. No JVD. No carotid bruit. CHEST EXAMINATION: Lungs are clear to auscultation. No chest wall tenderness is noted on palpation or with deep breathing. HEART EXAMINATION: Regular rate and rhythm. S1, S2 heard. Systolic murmur at apex and right sternal border ABDOMEN: Soft, nontender. Positive bowel sounds. EXTREMITIES: 2+ peripheral pulses, no lower extremity edema and no calf tenderness. NEUROLOGIC EXAMINATION: Patient is awake, alert and oriented x3. ASSESSMENT Fall at home, no loss of consciousness, unclear etiology, patient difficult to describe her symptoms, denies any loss of consciousness, lightheadedness, or dizziness. Frequent diarrhea Acute kidney injury Typical atrial flutter, with bradycardia Non-obstructive CAD Paroxysmal atrial fibrillation on Eliquis History of hypertension History of CVA History of seizure disorder History of COPD Diarrhea, C diff negative PLAN IV fluids Patient is not on any heart rate lowering agents Monitor on cardiac telemetry Obtain orthostatic vital signs Continue anticoagulation with Eliquis Further recommendations based on clinical course Nurse Practitioner note has been reviewed, I agree with a documented findings and plan of care. Patient was seen and examined. Past Medical History Past Medical History: Cancer, COPD, GERD/Reflux, GI Bleed, Hypertension, Musculoskeletal Disorder Additional Past Medical History / Comment(s): Colon cancer 2016/right colectomy- had surg. 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 Seizure, fx. R ankle, sciatica, chronic diarrhea, chronic atrial flutter, recent adm. [facility] for low potassium, supposed to use oxygen RTC but doesn't always, not sure what it's set at History of Any Multi-Drug Resistant Organisms: None Reported Past Surgical History: Bowel Resection, Cholecystectomy, Orthopedic Surgery, Tonsillectomy Additional Past Surgical History / Comment(s): right wrist surgery post fracture, robotic colectomy Past Anesthesia/Blood Transfusion Reactions: No Reported Reaction Past Psychological History: Anxiety Smoking Status: Former smoker - Past Family History Mother Family Medical History: Cancer Additional Family Medical History / Comment(s): Bladder cancer. Sister(s) Family Medical History: Cancer Additional Family Medical History / Comment(s): Colon cancer. Medications and Allergies Home Medications Medication Instructions Recorded Confirmed Type Fluticasone/Umeclidin/Vilanter 1 puff INHALATION RT-DAILY 03/04/21 03/26/22 History [Trelegy Ellipta 100-62.5-25] PARoxetine HCL 40 mg PO DAILY 03/04/21 03/26/22 History Atorvastatin [Lipitor] 40 mg PO HS #30 tablet 03/06/21 03/26/22 Rx Apixaban [Eliquis] 5 mg PO BID 09/27/21 03/26/22 History Pilocarpine [Sal[place]] 5 mg PO TID tab 10/08/21 03/26/22 Rx Oxybutynin Chloride [Oxybutynin 10 mg PO DAILY 10/20/21 03/26/22 History Chloride ER] ALPRAZolam [Xanax] 0.5 mg PO BID PRN #6 tab 10/22/21 03/26/22 Rx Diphenox-Atrop 2.5-0.025 mg 2 tab PO BID PRN #6 tab 10/22/21 03/26/22 Rx [Lomotil] Acetaminophen Tab [Tylenol] 650 mg PO Q6HR PRN tab 11/20/21 03/26/22 Rx Furosemide [Lasix] 20 mg PO DAILY #30 tab 11/20/21 03/26/22 Rx Isosorbide Mononitrate ER [Imdur] 30 mg PO DAILY #30 tab 11/20/21 03/26/22 Rx Albuterol Inhaler [Ventolin Hfa 2 puff PO RT-Q6H PRN 02/27/22 03/26/22 History Inhaler] Ipratropium-Albuterol Nebulize 3 ml INHALATION RT-TID PRN 02/27/22 03/26/22 History [Duoneb 0.5 mg-3 mg/3 ml Soln] Magnesium Oxide [Mag-Ox] 400 mg PO DAILY #30 tab 03/02/22 03/26/22 Rx Potassium Chloride ER [K-Dur 20] 20 meq PO BID #60 tab 03/02/22 03/26/22 Rx Psyllium Husk 100% [Metamucil 6 gm PO BID #60 packet 03/02/22 03/26/22 Rx Packet] hydrALAZINE HCL 75 mg PO BID 03/12/22 03/26/22 History Allergies Allergy/AdvReac Type Severity Reaction Status Date / Time benazepril Allergy Anaphylaxis Verified 03/26/22 10:55 Penicillins Allergy Face Verified 03/26/22 10:55 swelling sertraline [From Zoloft] Allergy Face Verified 03/26/22 10:55 swelling Sulfa (Sulfonamide Allergy Face Verified 03/26/22 10:55 Antibiotics) swelling Physical Exam Vitals: Vital Signs Temp Pulse Resp BP Pulse Ox 03/26/22 10:14 40 L 18 96 03/26/22 09:04 98.0 F 42 L 18 130/58 90 L Intake and Output 03/25/22 03/26/22 03/26/22 22:59 06:59 14:59 Other: Weight 63.049 kg Results 03/26/22 09:28 03/26/22 09:28 Cardiac Enzymes 03/26/22 Range/Units 09:28 AST 29 (14-36) U/L Coagulation 03/26/22 Range/Units 09:28 PT 12.5 H (9.0-12.0) sec APTT 29.3 (22.0-30.0) sec CBC 03/26/22 Range/Units 09:28 WBC 8.3 (3.8-10.6) k/uL RBC 4.17 (3.80-5.40) m/uL Hgb 11.9 (11.4-16.0) gm/dL Hct 38.7 (34.0-46.0) % Plt Count 278 (150-450) k/uL Comprehensive Metabolic Panel 03/26/22 Range/Units 09:28 Sodium 136 L (137-145) mmol/L Potassium 4.1 (3.5-5.1) mmol/L Chloride 101 (98-107) mmol/L Carbon Dioxide 22 (22-30) mmol/L BUN 15 (7-17) mg/dL Creatinine 1.18 H (0.52-1.04) mg/dL Glucose 81 (74-99) mg/dL Calcium 8.8 (8.4-10.2) mg/dL AST 29 (14-36) U/L ALT 13 (4-34) U/L Alkaline Phosphatase 108 (38-126) U/L Total Protein 6.6 (6.3-8.2) g/dL Albumin 4.0 (3.5-5.0) g/dL Current Medications Generic Name Dose Route Start Last Admin Trade Name Freq PRN Reason Stop Dose Admin Acetaminophen 650 mg 03/26/22 11:22 Acetaminophen Tab 325 Mg Tab PO Q6HR PRN Mild Pain or Fever > 100.5 Albuterol/Ipratropium 3 ml 03/26/22 12:44 Ipratropium-Albuterol 3 Ml Neb INHALATION RT-TID PRN Shortness Of Breath Alprazolam 0.5 mg 03/26/22 12:44 Alprazolam 0.5 Mg Tab PO BID PRN Anxiety Apixaban 5 mg 03/26/22 21:00 Apixaban 5 Mg Tab PO BID MELINA Protocol Atorvastatin Calcium 40 mg 03/26/22 21:00 Atorvastatin 40 Mg Tab PO HS [facility] Budesonide/Formoterol Fumarate 2 puff 03/26/22 20:00 Symbicort 80-4.5 Mcg Inhaler INHALATION RT-BID [facility] Diphenoxylate HCl/Atropine 2 each 03/26/22 12:44 Diphenox-Atrop 2.5-0.025 Mg 1 Each Tab PO BID PRN Diarrhea Hydralazine HCl 75 mg 03/26/22 21:00 Hydralazine Hcl 25 Mg Tab PO BID MELINA Ipratropium [place] 0.5 mg 03/26/22 16:00 Ipratropium 0.5 Mg/2.5 Ml Nebu INHALATION RT-QID [facility] Isosorbide Mononitrate 30 mg 03/27/22 09:00 Isosorbide Mononitrate Er 30 Mg Tab.Er.24h PO DAILY [facility] Magnesium Oxide 400 mg 03/27/22 09:00 Magnesium Oxide 400 Mg Tab PO DAILY [facility] Naloxone HCl 0.2 mg 03/26/22 11:22 Naloxone 0.4 Mg/Ml 1 Ml Vial IV Q2M PRN Opioid Reversal Oxybutynin Chloride 10 mg 03/27/22 09:00 Oxybutynin 10 Mg Tab.Er.24 PO DAILY [facility] Paroxetine HCl 40 mg 03/27/22 09:00 Paroxetine 20 Mg Tab PO DAILY [facility] Pilocarpine HCl 5 mg 03/26/22 16:00 Pilocarpine 5 Mg Tab PO TID MELINA Psyllium Hydrophilic Mucilloid 6 gm 03/26/22 21:00 Psyllium Husk 100% 6 Gm Packet PO BID MELINA Intake and Output 03/25/22 03/26/22 03/26/22 22:59 06:59 14:59 Other: Weight 63.049 kg Patient Weight 03/27/22 06:59 Weight 63.049 kg 03/26/22 09:28 03/26/22 09:28
[2022-03-26] MEDS: IPRATROPIUM 0.5 MG/2.5 ML NEBU INHALATION SCH ×2 (16:11→19:01)
--- NOTE | 2022-03-26 16:50 | P.HPIM ---
History of Present Illness H&P Date: 03/26/22 Chief Complaint: Past out 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 Chronic stable medical conditions include GERD, hypertension, colon cancer, seizure, sciatica, COPD. February 2021 - right brainstem thalamic stroke. Atrial flutter-fibrillation on eliquis. Was in the hospital from September 27 through October 08 with right ankle fracture. was taken to the OR Was in atrial flutter. In the perioperative period patient went into a asystole. 1 minute of CPR. Surgery was postponed. Taken to the ICU. Had atrial flutter and possible V. tach. cardiac catheterization.- No significant disease. chronic dry mouth.-On [place] . Diastolic CHF Recently admitted in the hospital from February 27 to March 03 with severe hypokalemia, metabolic alkalosis from diuresis. Patient was sitting of the collagen reading a book. She had been up a few times. This occasion she got up and started for some time and suddenly felt different and then down with the right arm under her eye. Never passed out. No palpitation no fluttering. No chest pain. This happened evening before. Oral intake has been fair. Normally has anywhere from 2-3 bowel movements a day. T his followed by Dr. Kaveh Key. Is on Imodium for the same. Sometimes feels dizzy lightheaded. Review of systems: GEN.: Tired, EYES: None HEENT: Dry mouth NECK: None RESPIRATORY: None CARDIOVASCULAR: None GASTROINTESTINAL: Occasional diarrhea GENITOURINARY: None MUSCULOSKELETAL: Joint pains] LYMPHATICS: None HEMATOLOGICAL: None PSYCHIATRY: Occasional confusion, anxiety NEUROLOGICAL: No focal symptoms Past medical history to include: Colon cancer treated with chemotherapy and surgery in 2015, sciatica, essential hypertension, GERD, COPD. right brainstem thalamic stroke in February 2021, chronic dry mouth, major depressive disorder per psychiatry Social history: . Smoked less than a pack a day for 45 years stopped in 2017. Alcohol occasionally. Family history: Bladder cancer Physical examination: VITAL SIGNS: 98.2, 41, 18, 120 9669, 100% room air GENERAL: BMI 23.9, reclining in bed, bit tired EYES: Pupils equal. Conjunctiva normal. Some periorbital bruising especially around left eye HEENT: External appearance of nose and ears normal, oral cavity dry mucous membranes NECK: JVD not raised; masses not palpable. HEART: Heart sounds irregular; no edema. LUNGS: Respiratory rate increased; decreased breath sounds. ABDOMEN: Soft, nontender, liver spleen not palpable, no masses palpable. PSYCH: Alert and oriented x3; mood and affect anxious. MUSCULOSKELETAL:No Clubbing/cyanosis;muscles-grossly intact. OA. LYMPHATICS: No lymph nodes palpable in neck and axilla INVESTIGATIONS, reviewed in the clinical context: WBC 8.3 hemoglobin 11.9 platelets 278 potassium 4.1 creatinine 1.18 EKG tracing personally reviewed by me-atrial flutter with a ventricular rate of 40 Chest x-ray film personally reviewed by me-possibly chronic changes Previous studies: 2-D echocardiogram [September 2021]: Severe concentric LVH. EF 55-60%. Possible LVOT obstruction. Moderate MR. Cardiac catheterization [September 2021]: Mild nonobstructive disease Assessment and plan: -Episode of syncope, in a patient with a heart rate in the 40s. Patient not on medications for ventricular controlled rate. On AV blocking drug. Telemetry. Consult cardiology -Chronic hypoxic respiratory failure from underlying COPD 2 L of oxygen at home -chronic congestive heart failure exacerbation from preserved LV function/diastolic likely secondary to atrial flutter fibrillation Fluid restriction 1800 mL a day. Lasix 20 mg daily. -COPD in a X smoker Jem [place] -Moderate mitral regurgitation Follow clinically -Chronic xerostomia [place] -Primary osteoarthritis Pain medications as needed -Hypertensive heart disease -Chronic urinary stress incontinence Oxybutynin -Major depressive disorder. In remission Xanax 0.5 mg twice a day when necessary, Paxil 40 mg daily. -Essential hypertension Hydralazine 75 mg twice a day -Persistent atrial flutter fibrillation: Heart rate controlled. eliquis. -Mild protein calorie malnutrition from decreased oral intake Oral intake encouraged. Ensure supplement. Discussed with patient. -Full code Resumed medications. Note heart rate is low. Telemetry. Consult oncology. Fall precautions. Care was discussed with the patient. Questions answered. Past Medical History Past Medical History: Cancer, COPD, GERD/Reflux, GI Bleed, Hypertension, Musculoskeletal Disorder Additional Past Medical History / Comment(s): Colon cancer 2015/right colectomy-had surg. 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 Seizure, fx. R ankle, sciatica, chronic diarrhea, chronic atrial flutter, recent adm. [facility] for low potassium, supposed to use oxygen RTC but doesn't always, not sure what it's set at History of Any Multi-Drug Resistant Organisms: None Reported Past Surgical History: Bowel Resection, Cholecystectomy, Orthopedic Surgery, Tonsillectomy Additional Past Surgical History / Comment(s): right wrist surgery post fracture, robotic colectomy Past Anesthesia/Blood Transfusion Reactions: No Reported Reaction Past Psychological History: Anxiety Smoking Status: Former smoker - Past Family History Mother Family Medical History: Cancer Additional Family Medical History / Comment(s): Bladder cancer. Sister(s) Family Medical History: Cancer Additional Family Medical History / Comment(s): Colon cancer. Medications and Allergies Home Medications Medication Instructions Recorded Confirmed Type Fluticasone/Umeclidin/Vilanter 1 puff INHALATION RT-DAILY 03/04/21 03/26/22 History [Trelegy Ellipta 100-62.5-25] PARoxetine HCL 40 mg PO DAILY 03/04/21 03/26/22 History Atorvastatin [Lipitor] 40 mg PO HS #30 tablet 03/06/21 03/26/22 Rx Apixaban [Eliquis] 5 mg PO BID 09/27/21 03/26/22 History Pilocarpine [[place]] 5 mg PO TID tab 10/08/21 03/26/22 Rx Oxybutynin Chloride [Oxybutynin 10 mg PO DAILY 10/20/21 03/26/22 History Chloride ER] ALPRAZolam [Xanax] 0.5 mg PO BID PRN #6 tab 10/22/21 03/26/22 Rx Diphenox-Atrop 2.5-0.025 mg 2 tab PO BID PRN #6 tab 10/22/21 03/26/22 Rx [Lomotil] Acetaminophen Tab [Tylenol] 650 mg PO Q6HR PRN tab 11/20/21 03/26/22 Rx Furosemide [Lasix] 20 mg PO DAILY #30 tab 11/20/21 03/26/22 Rx Isosorbide Mononitrate ER [Imdur] 30 mg PO DAILY #30 tab 11/20/21 03/26/22 Rx Albuterol Inhaler [Ventolin Hfa 2 puff PO RT-Q6H PRN 02/27/22 03/26/22 History Inhaler] Ipratropium-Albuterol Nebulize 3 ml INHALATION RT-TID PRN 02/27/22 03/26/22 History [Duoneb 0.5 mg-3 mg/3 ml Soln] Magnesium Oxide [Mag-Ox] 400 mg PO DAILY #30 tab 03/02/22 03/26/22 Rx Potassium Chloride ER [K-Dur 20] 20 meq PO BID #60 tab 03/02/22 03/26/22 Rx Psyllium Husk 100% [Metamucil 6 gm PO BID #60 packet 03/02/22 03/26/22 Rx Packet] hydrALAZINE HCL 75 mg PO BID 03/12/22 03/26/22 History Allergies Allergy/AdvReac Type Severity Reaction Status Date / Time benazepril Allergy Anaphylaxis Verified 03/26/22 10:55 Penicillins Allergy Face Verified 03/26/22 10:55 swelling sertraline [From Zoloft] Allergy Face Verified 03/26/22 10:55 swelling Sulfa (Sulfonamide Allergy Face Verified 03/26/22 10:55 Antibiotics) swelling Physical Exam Vitals: Vital Signs Temp Pulse Resp BP Pulse Ox 03/26/22 10:14 40 L 18 96 03/26/22 09:04 98.0 F 42 L 18 130/58 90 L Intake and Output 03/25/22 03/26/22 03/26/22 22:59 06:59 14:59 Other: Weight 63.049 kg Results CBC & Chem 7: 03/26/22 09:28 03/26/22 09:28 Labs: Abnormal Lab Results - Last 24 Hours (Table) 03/26/22 03/26/22 03/26/22 Range/Units 09:28 09:28 09:28 MCHC 30.8 L (31.0-37.0) g/dL Lymphocytes # 0.9 L (1.0-4.8) k/uL PT 12.5 H (9.0-12.0) sec INR 1.2 H (<1.2) Sodium 136 L (137-145) mmol/L Creatinine 1.18 H (0.52-1.04) mg/dL
[2022-03-26] MEDS: PILOCARPINE 5 MG TAB PO SCH ×2 (17:53→22:22)
[2022-03-26] MEDS: SYMBICORT 80-4.5 MCG INHALER INHALATION SCH (19:02)
[2022-03-26] MEDS: APIXABAN 5 MG TAB PO SCH (20:54)
[2022-03-26] MEDS: ATORVASTATIN 40 MG TAB PO SCH (20:54)
[2022-03-26] MEDS: hydrALAZINE HCL 25 MG TAB PO SCH (20:54)
[2022-03-26] MEDS: PSYLLIUM HUSK 100% 6 GM PACKET PO SCH (20:55)
[2022-03-27 07:31] LABS: Calcium 8.4 mg/dL (8.4-10.2); Potassium 3.7 mmol/L (3.5-5.1)
[2022-03-27] MEDS: IPRATROPIUM 0.5 MG/2.5 ML NEBU INHALATION SCH ×4 (07:35→21:01)
[2022-03-27] MEDS: SYMBICORT 80-4.5 MCG INHALER INHALATION SCH ×2 (07:35→21:02)
[2022-03-27] MEDS ORDERED: IPRATROPIUM 0.5 MG/2.5 ML NEBU INHALATION SCH (08:00)
[2022-03-27] MEDS: MAGNESIUM OXIDE 400 MG TAB PO SCH (08:46)
[2022-03-27] MEDS: PSYLLIUM HUSK 100% 6 GM PACKET PO SCH ×2 (08:46→21:09)
[2022-03-27] MEDS: ISOSORBIDE MONONITRATE ER 30 MG TAB.ER.24H PO SCH (08:46)
[2022-03-27] MEDS: PARoxetine 20 MG TAB PO SCH (08:47)
[2022-03-27] MEDS: APIXABAN 5 MG TAB PO SCH ×2 (08:47→21:08)
[2022-03-27] MEDS: hydrALAZINE HCL 25 MG TAB PO SCH ×2 (08:47→21:08)
[2022-03-27] MEDS: OXYBUTYNIN 10 MG TAB.ER.24 PO SCH (08:48)
[2022-03-27] MEDS: PILOCARPINE 5 MG TAB PO SCH ×3 (08:48→21:09)
[2022-03-27] MEDS ORDERED: SODIUM CHLORIDE 0.9% 1,000 ML IV SCH (09:30)
--- NOTE | 2022-03-27 11:52 | P.PN ---
Subjective Progress Note Date: 03/27/22 Patient is seen today resting comfortably in bed, she denies increased shortness of breath or chest pain, or any further episodes of dizziness and syncope. Her orthostatic blood pressures were positive. Patient is to use compression stockings. Will continue with midodrine 2.5 TID. Patient remains in atrial flutter with a heart rate in the 40s. Continue to avoid AV blocking agents Objective - Vital Signs Vital signs: Vital Signs Temp 97.9 F 03/27/22 04:00 Pulse 43 L 03/27/22 08:00 Resp 16 03/27/22 08:00 BP 152/67 03/27/22 08:00 Pulse Ox 91 L 03/27/22 08:00 FiO2 Intake & Output 03/26/22 03/27/22 03/27/22 18:59 06:59 18:59 Weight 63.049 kg Other: Voiding Method Toilet # Voids 1 # Bowel Movements 1 - Exam PHYSICAL EXAM: VITAL SIGNS: Reviewed. GENERAL: Well-developed in no acute distress. HEENT: Head is normocephalic. Pupils are equal, round. Sclerae anicteric. Mucous membranes of the mouth are moist. NECK: Supple. No JVD or thyromegaly RESPIRATORY: Respirations even and unlabored. Lungs diminished to auscultation bilaterally. CARDIO: Regular rate and rhythm. S1 and S2 heard. No murmur or gallops. EXTREMITIES: Normal range of motion. No clubbing or cyanosis. Peripheral pulses intact. Negative for bilateral lower extremity edema NEURO: Orientated to person, time, mood is appropriate - Labs CBC & Chem 7: 03/26/22 09:28 03/27/22 06:37 Assessment and Plan Assessment: Near syncope Bradycardia Orthostatic hypotension Frequent diarrhea Acute kidney injury Typical atrial flutter, with bradycardia Non-obstructive coronary artery disease Paroxysmal atrial fibrillation on Eliquis Plan: Continue midodrine 2.5 mg twice a day Patient is to wear compression stockings for orthostatic hypotension to increase circulation Avoid all AV blocking agents Monitor on cardiac telemetry Obtain orthostatic vital signs Continue anticoagulation with Eliquis Further recommendations based on clinical course The above impression and plan of care have been discussed and directed by the signing physician. Clementina Gonzalez, nurse practitioner, acting as scribe for signing physician.
[2022-03-27] MEDS: MIDODRINE 5 MG TAB PO SCH ×2 (12:50→17:24)
--- NOTE | 2022-03-27 13:36 | P.PN ---
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 Chronic stable medical conditions include GERD, hypertension, colon cancer, seizure, sciatica, COPD. February 2021 - right brainstem thalamic stroke. Atrial flutter-fibrillation on eliquis. Was in the hospital from September 27 through October 08 with right ankle fracture. was taken to the OR Was in atrial flutter. In the perioperative period patient went into a asystole. 1 minute of CPR. Surgery was postponed. Taken to the ICU. Had atrial flutter and possible V. tach. cardiac catheterization.- No significant disease. chronic dry mouth.-On Salagen . Diastolic CHF Recently admitted in the hospital from February 27 to March 03 with severe hypokalemia, metabolic alkalosis from diuresis. Patient was sitting of the collagen reading a book. She had been up a few times. This occasion she got up and started for some time and suddenly felt different and then down with the right arm under her eye. Never passed out. No palpitation no fluttering. No chest pain. This happened evening before. Oral intake has been fair. Normally has anywhere from 2-3 bowel movements a day. This followed by Dr. Kaveh Key. Is on Imodium for the same. Sometimes feels dizzy lightheaded. March 27: Up in a chair. Reading a book. A bit anxious. Patient at baseline is unsteady in walking with a walker. Midodrine added by cardiology Discussed with patient. Anxious to go home. Positive for orthostatic Active Medications Acetaminophen (Acetaminophen Tab 325 Mg Tab) 650 mg PO Q6HR PRN PRN Reason: Mild Pain or Fever > 100.5 Last Admin: 03/26/22 13:07 Dose: 650 mg Albuterol/Ipratropium (Ipratropium-Albuterol 3 Ml Neb) 3 ml INHALATION RT-TID PRN PRN Reason: Shortness Of Breath Last Admin: 03/26/22 16:10 Dose: 3 ml Alprazolam (Alprazolam 0.5 Mg Tab) 0.5 mg PO BID PRN PRN Reason: Anxiety Apixaban (Apixaban 5 Mg Tab) 5 mg PO BID MELINA; Protocol Last Admin: 03/27/22 08:47 Dose: 5 mg Atorvastatin Calcium (Atorvastatin 40 Mg Tab) 40 mg PO HS [facility] Last Admin: 03/26/22 20:54 Dose: 40 mg Budesonide/Formoterol Fumarate (Symbicort 80-4.5 Mcg Inhaler) 2 puff INHALATION RT-BID [facility] Last Admin: 03/27/22 07:35 Dose: 2 puff Diphenoxylate HCl/Atropine (Diphenox-Atrop 2.5-0.025 Mg 1 Each Tab) 2 each PO BID PRN PRN Reason: Diarrhea Hydralazine HCl (Hydralazine Hcl 25 Mg Tab) 75 mg PO BID [facility] Last Admin: 03/27/22 08:47 Dose: 75 mg Ipratropium [place] (Ipratropium 0.5 Mg/2.5 Ml Nebu) 0.5 mg INHALATION RT-QID [facility] Last Admin: 03/27/22 10:52 Dose: Not Given Isosorbide Mononitrate (Isosorbide Mononitrate Er 30 Mg Tab.Er.24h) 30 mg PO DAILY [facility] Last Admin: 03/27/22 08:46 Dose: 30 mg Magnesium Oxide (Magnesium Oxide 400 Mg Tab) 400 mg PO DAILY [facility] Last Admin: 03/27/22 08:46 Dose: 400 mg Midodrine (Midodrine 5 Mg Tab) 2.5 mg PO AC-TID [facility] Last Admin: 03/27/22 12:50 Dose: 2.5 mg Naloxone HCl (Naloxone 0.4 Mg/Ml 1 Ml Vial) 0.2 mg IV Q2M PRN PRN Reason: Opioid Reversal Oxybutynin Chloride (Oxybutynin 10 Mg Tab.Er.24) 10 mg PO DAILY [facility] Last Admin: 03/27/22 08:48 Dose: 10 mg Paroxetine HCl (Paroxetine 20 Mg Tab) 40 mg PO DAILY [facility] Last Admin: 03/27/22 08:47 Dose: 40 mg Pilocarpine HCl (Pilocarpine 5 Mg Tab) 5 mg PO TID [facility] Last Admin: 03/27/22 08:48 Dose: 5 mg Psyllium Hydrophilic Mucilloid (Psyllium Husk 100% 6 Gm Packet) 6 gm PO BID [facility] Last Admin: 03/27/22 08:46 Dose: 6 gm Past medical history to include: Colon cancer treated with chemotherapy and surgery in 2015, sciatica, essential hypertension, GERD, COPD. right brainstem thalamic stroke in February 2021, chronic dry mouth, major depressive disorder per psychiatry Social history: . Smoked less than a pack a day for 45 years stopped in 2017. Alcohol occasionally. Family history: Bladder cancer Physical examination: VITAL SIGNS: 97.9, 40, 14, 133/77, 96% on 2 L, positive for orthostatic GENERAL: BMI 23.9, reclining in bed, bit tired EYES: Pupils equal. Conjunctiva normal. Some periorbital bruising especially around left eye HEENT: External appearance of nose and ears normal, oral cavity dry mucous membranes NECK: JVD not raised; masses not palpable. HEART: Heart sounds irregular; no edema. LUNGS: Respiratory rate increased; decreased breath sounds. ABDOMEN: Soft, nontender, liver spleen not palpable, no masses palpable. PSYCH: Alert and oriented x3; mood and affect anxious. MUSCULOSKELETAL:No Clubbing/cyanosis;muscles-grossly intact. OA. LYMPHATICS: No lymph nodes palpable in neck and axilla INVESTIGATIONS, reviewed in the clinical context: March 27: Potassium 3.7 creatinine 0.90 WBC 8.3 hemoglobin 11.9 platelets 278 potassium 4.1 creatinine 1.18 EKG tracing personally reviewed by me-atrial flutter with a ventricular rate of 40 Chest x-ray film personally reviewed by me-possibly chronic changes Previous studies: 2-D echocardiogram [September 2021]: Severe concentric LVH. EF 55-60%. Possible LVOT obstruction. Moderate MR. Cardiac catheterization [September 2021]: Mild nonobstructive disease Assessment and plan: -Episode of syncope, in a patient with a heart rate in the 40s. Patient not on medications for ventricular controlled rate.: Positive for orthostatic Telemetry. Midodrine added -Chronic hypoxic respiratory failure from underlying COPD 2 L of oxygen at home -chronic congestive heart failure exacerbation from preserved LV function/diastolic likely secondary to atrial flutter fibrillation Fluid restriction 1800 mL a day. Lasix 20 mg daily. -COPD in a X smoker Jem powell -Moderate mitral regurgitation Follow clinically -Chronic xerostomia Salagen -Primary osteoarthritis Pain medications as needed -Hypertensive heart disease -Chronic urinary stress incontinence Oxybutynin -Major depressive disorder. In remission Xanax 0.5 mg twice a day when necessary, Paxil 40 mg daily. -Essential hypertension Hydralazine 75 mg twice a day -Persistent atrial flutter fibrillation: Heart rate controlled. eliquis. -Mild protein calorie malnutrition from decreased oral intake Oral intake encouraged. Ensure supplement. Discussed with patient. -Full code Positive for orthostatic. Midodrine added. At baseline patient unsteady with a walker. Discussed. Follow with cardiology.
[2022-03-27] MEDS: ATORVASTATIN 40 MG TAB PO SCH (21:08)
[2022-03-28 04:16] VITALS: TEMP 98.8
[2022-03-28] MEDS: IPRATROPIUM 0.5 MG/2.5 ML NEBU INHALATION SCH ×2 (07:39→11:09)
[2022-03-28] MEDS: SYMBICORT 80-4.5 MCG INHALER INHALATION SCH ×2 (07:39→07:53)
[2022-03-28] MEDS: MIDODRINE 5 MG TAB PO SCH (09:04)
[2022-03-28] MEDS: OXYBUTYNIN 10 MG TAB.ER.24 PO SCH (09:12)
[2022-03-28] MEDS: hydrALAZINE HCL 25 MG TAB PO SCH (09:12)
[2022-03-28] MEDS: ISOSORBIDE MONONITRATE ER 30 MG TAB.ER.24H PO SCH (09:12)
[2022-03-28] MEDS: PILOCARPINE 5 MG TAB PO SCH (09:12)
[2022-03-28] MEDS: PSYLLIUM HUSK 100% 6 GM PACKET PO SCH (09:13)
[2022-03-28] MEDS: PARoxetine 20 MG TAB PO SCH (09:13)
[2022-03-28] MEDS: APIXABAN 5 MG TAB PO SCH (09:13)
[2022-03-28] MEDS: MAGNESIUM OXIDE 400 MG TAB PO SCH (09:13)
[2022-03-28 09:21] VITALS: BP 173/72; RESP 16
[2022-03-28 11:11] VITALS: PULSE 48
--- NOTE | 2022-03-28 11:12 | P.PN ---
Subjective Progress Note Date: 03/28/22 Patient is seen sitting on the side of the bed comfortably in no signs of acute distress. She continues to deny chest pain or increased shortness of breath. She denies some additional episodes of dizziness or syncope. Patient remains A. fib on the monitor with a ventricular rate of 40. Patient was started on continue with midodrine 2.5 mg 3 times a day. Orthostatics remained positive Blood pressure at rest is 173/72, standing 146/64, patient is advised to wear compression stockings increase circulation. Continue to avoid AV blocking agents Objective - Vital Signs Vital signs: Vital Signs Temp 98.8 F 03/28/22 04:00 Pulse 50 L 03/28/22 07:49 Resp 16 03/28/22 08:00 BP 173/72 03/28/22 08:00 Pulse Ox 96 03/28/22 08:00 FiO2 Intake & Output 03/27/22 03/28/22 03/28/22 18:59 06:59 18:59 Intake Total 120 Balance 120 Intake: Oral 120 Other: Voiding Method Toilet Toilet # Voids 1 1 # Bowel Movements 1 - Exam PHYSICAL EXAM: VITAL SIGNS: Reviewed. GENERAL: Well-developed in no acute distress. HEENT: Head is normocephalic. Pupils are equal, round. Sclerae anicteric. Mucous membranes of the mouth are moist. NECK: Supple. No JVD or thyromegaly RESPIRATORY: Respirations even and unlabored. Lungs diminished to auscultation bilaterally. CARDIO: Irregular rate and rhythm. S1 and S2 heard. No murmur or gallops. Bra dycardia EXTREMITIES: Normal range of motion. No clubbing or cyanosis. Peripheral pulses intact. Negative for bilateral lower extremity edema NEURO: Orientated to person, time, mood is appropriate - Labs CBC & Chem 7: 03/26/22 09:28 03/27/22 06:37 Assessment and Plan Assessment: Near syncope Bradycardia Orthostatic hypotension Hypertension Frequent diarrhea Acute kidney injury Typical atrial flutter, with bradycardia Non-obstructive coronary artery disease Paroxysmal atrial fibrillation on Eliquis Plan: Avoid all AV blocking agents Monitor on cardiac telemetry Obtain orthostatic vital signs Continue anticoagulation with Eliquis Further recommendations based on clinical course The above impression and plan of care have been discussed and directed by the signing physician. Clementina Gonzalez, nurse practitioner, acting as scribe for signing physician.
--- NOTE | 2022-03-28 13:59 | P.DS ---
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 Chronic stable medical conditions include GERD, hypertension, colon cancer, seizure, sciatica, COPD. February 2021 - right brainstem thalamic stroke. Atrial flutter-fibrillation on eliquis. Was in the hospital from September 27 through October 08 with right ankle fracture. was taken to the OR Was in atrial flutter. In the perioperative period patient went into a asystole. 1 minute of CPR. Surgery was postponed. Taken to the ICU. Had atrial flutter and possible V. tach. cardiac catheterization.- No significant disease. chronic dry mouth.-On Salagen . Diastolic CHF Recently admitted in the hospital from February 27 to March 03 with severe hypokalemia, metabolic alkalosis from diuresis. Patient was sitting of the collagen reading a book. She had been up a few times. This occasion she got up and started for some time and suddenly felt different and then down with the right arm under her eye. Never passed out. No palpitation no fluttering. No chest pain. This happened evening before. Oral intake has been fair. Normally has anywhere from 2-3 bowel movements a day. This followed by Dr. Kaveh Key. Is on Imodium for the same. Sometimes feels dizzy lightheaded. March 27: Up in a chair. Reading a book. A bit anxious. Patient at baseline is unsteady in walking with a walker. Midodrine added by cardiology Discussed with patient. Anxious to go home. Positive for orthostatic March 28: Patient extremely keen to go home. DAVON stockings given. Discussed with the patient drug-eluting slowly. Patient understands. Also called patient's Bill at home and discussed the same. Strongly recommend patient and go to assisted living. It just hydralazine to 50 mg 3 times a day Discussion and discharge planning more than 35 minutes Past medical history to include: Colon cancer treated with chemotherapy and surgery in 2016, sciatica, essential hypertension, GERD, COPD. right brainstem thalamic stroke in February 2021, chronic dry mouth, major depressive disorder per psychiatry Social history: . Smoked less than a pack a day for 45 years stopped in 2017. Alcohol occasionally. Family history: Bladder cancer Physical examination: VITAL SIGNS: 48, 16, positive orthostatic, 96% on 2 L. Standing 1 46 x 64, supine 173.72 GENERAL: , reclining in bed, reading a book EYES: Pupils equal. Conjunctiva normal. Some periorbital bruising especially around left eye HEENT: External appearance of nose and ears normal, oral cavity dry mucous membranes NECK: JVD not raised; masses not palpable. HEART: Heart sounds irregular; no edema. LUNGS: Respiratory rate increased; decreased breath sounds. ABDOMEN: Soft, nontender, liver spleen not palpable, no masses palpable. PSYCH: Alert and oriented x3; mood and affect anxious. MUSCULOSKELETAL:No Clubbing/cyanosis;muscles-grossly intact. OA. INVESTIGATIONS, reviewed in the clinical context: March 27: Potassium 3.7 creatinine 0.90 WBC 8.3 hemoglobin 11.9 platelets 278 potassium 4.1 creatinine 1.18 EKG tracing personally reviewed by me-atrial flutter with a ventricular rate of 40 Chest x-ray film personally reviewed by me-possibly chronic changes Previous studies: 2-D echocardiogram [September 2021]: Severe concentric LVH. EF 55-60%. Possible LVOT obstruction. Moderate MR. Cardiac catheterization [September 2021]: Mild nonobstructive disease Assessment and plan: -Episode of syncope, in a patient with a heart rate in the 40s. Patient not on medications for ventricular controlled rate.: Orthostatic Telemetry. Midodrine added. DAVON stockings -Chronic hypoxic respiratory failure from underlying COPD 2 L of oxygen at home -chronic congestive heart failure exacerbation from preserved LV function/diastolic likely secondary to atrial flutter fibrillation Fluid restriction 1800 mL a day. Lasix 20 mg daily. -COPD in a X smoker Jem powell -Moderate mitral regurgitation Follow clinically -Chronic xerostomia Salagen -Primary osteoarthritis Pain medications as needed -Hypertensive heart disease -Chronic urinary stress incontinence Oxybutynin -Major depressive disorder. In remission Xanax 0.5 mg twice a day when necessary, Paxil 40 mg daily. -Essential hypertension Hydralazine 50 mg 3 times a day -Persistent atrial flutter fibrillation: Heart rate controlled. eliquis. -Mild protein calorie malnutrition from decreased oral intake Oral intake encouraged. Ensure supplement. Discussed with patient. -Full code Disposition: Home Patient Condition at Discharge: Stable Plan - Discharge Summary New Discharge Prescriptions: New Midodrine [ProAmatine] 2.5 mg PO AC-TID #90 tab Continue PARoxetine HCL 40 mg PO DAILY Atorvastatin [Lipitor] 40 mg PO HS #30 tablet Oxybutynin Chloride [Oxybutynin Chloride ER] 10 mg PO DAILY Furosemide [Lasix] 20 mg PO DAILY #30 tab Ipratropium-Albuterol Nebulize [Duoneb 0.5 mg-3 mg/3 ml Soln] 3 ml INHALATION RT-TID PRN PRN Reason: Shortness Of Breath Psyllium Husk 100% [Metamucil Packet] 6 gm PO BID #60 packet Potassium Chloride ER [K-Dur 20] 20 meq PO BID #60 tab Fluticasone/Umeclidin/Vilanter [Trelegy Ellipta 100-62.5-25] 1 puff INHALATION RT-DAILY Apixaban [Eliquis] 5 mg PO BID Pilocarpine [Salagen] 5 mg PO TID tab Diphenox-Atrop 2.5-0.025 mg [Lomotil] 2 tab PO BID PRN #6 tab PRN Reason: Diarrhea ALPRAZolam [Xanax] 0.5 mg PO BID PRN #6 tab PRN Reason: Anxiety Isosorbide Mononitrate ER [Imdur] 30 mg PO DAILY #30 tab Acetaminophen Tab [Tylenol] 650 mg PO Q6HR PRN tab PRN Reason: Mild Pain Or Fever > 100.5 Albuterol Inhaler [Ventolin Hfa Inhaler] 2 puff PO RT-Q6H PRN PRN Reason: Shortness Of Breath Magnesium Oxide [Mag-Ox] 400 mg PO DAILY #30 tab Changed hydrALAZINE HCL 50 mg PO TID #0 Discharge Medication List Fluticasone/Umeclidin/Vilanter [Trelegy Ellipta 100-62.5-25] 1 puff INHALATION RT-DAILY 03/04/21 [History] PARoxetine HCL 40 mg PO DAILY 03/04/21 [History] Atorvastatin [Lipitor] 40 mg PO HS #30 tablet 03/06/21 [Rx] Apixaban [Eliquis] 5 mg PO BID 09/27/21 [History] Pilocarpine [Salagen] 5 mg PO TID tab 10/08/21 [Rx] Oxybutynin Chloride [Oxybutynin Chloride ER] 10 mg PO DAILY 10/20/21 [History] ALPRAZolam [Xanax] 0.5 mg PO BID PRN #6 tab 10/22/21 [Rx] Diphenox-Atrop 2.5-0.025 mg [Lomotil] 2 tab PO BID PRN #6 tab 10/22/21 [Rx] Acetaminophen Tab [Tylenol] 650 mg PO Q6HR PRN tab 11/20/21 [Rx] Furosemide [Lasix] 20 mg PO DAILY #30 tab 11/20/21 [Rx] Isosorbide Mononitrate ER [Imdur] 30 mg PO DAILY #30 tab 11/20/21 [Rx] Albuterol Inhaler [Ventolin Hfa Inhaler] 2 puff PO RT-Q6H PRN 02/27/22 [History] Ipratropium-Albuterol Nebulize [Duoneb 0.5 mg-3 mg/3 ml Soln] 3 ml INHALATION RT-TID PRN 02/27/22 [History] Magnesium Oxide [Mag-Ox] 400 mg PO DAILY #30 tab 03/02/22 [Rx] Potassium Chloride ER [K-Dur 20] 20 meq PO BID #60 tab 03/02/22 [Rx] Psyllium Husk 100% [Metamucil Packet] 6 gm PO BID #60 packet 03/02/22 [Rx] Midodrine [ProAmatine] 2.5 mg PO AC-TID #90 tab 03/28/22 [Rx] hydrALAZINE HCL 50 mg PO TID #0 03/28/22 [Rx] Follow up Appointment(s)/Referral(s): pharmacy intake techniciandr [Other] - 1 Week Davis Ty DO [Primary Care Provider] - 1-2 days Patient Instructions/Handouts: Syncope (DC) Activity/Diet/Wound Care/Special Instructions: fluid restriction 2000 cc/day Discharge Disposition: HOME SELF-CARE
== END 2022-03-28 13:10 | disposition home or self-care (01) | DRG 308 ==
LOC: EC 08:51 → 3SCARD 11:34
PROVIDERS: ADMIT Hospitalist; ATTEND Hospitalist
PROC: 5A12012 Performance of Cardiac Output, Single, Manual (ICD-10-PCS; principal; 2022-03-26)
DX: I48.92 Unspecified atrial flutter (principal); I50.33 Acute on chronic diastolic (congestive) heart failure; E44.1 Mild protein-calorie malnutrition; N17.9 Acute kidney failure, unspecified; J96.11 Chronic respiratory failure with hypoxia; I48.0 Paroxysmal atrial fibrillation; J44.9 Chronic obstructive pulmonary disease, unspecified; R00.1 Bradycardia, unspecified; R19.7 Diarrhea, unspecified; I11.0 Hypertensive heart disease with heart failure; K21.9 Gastro-esophageal reflux disease without esophagitis; G40.909 Epilepsy, unspecified, not intractable, without status epilepticus; I25.10 Atherosclerotic heart disease of native coronary artery without angina pectoris; I27.20 Pulmonary hypertension, unspecified; I95.1 Orthostatic hypotension; G31.89 Other specified degenerative diseases of nervous system; M19.91 Primary osteoarthritis, unspecified site; I08.0 Rheumatic disorders of both mitral and aortic valves; K11.7 Disturbances of salivary secretion; F32.5 Major depressive disorder, single episode, in full remission; N39.3 Stress incontinence (female) (male); Z90.49 Acquired absence of other specified parts of digestive tract; Z79.51 Long term (current) use of inhaled steroids; Z79.899 Other long term (current) drug therapy; Z85.038 Personal history of other malignant neoplasm of large intestine; Z92.21 Personal history of antineoplastic chemotherapy; Z86.73 Personal history of transient ischemic attack (TIA), and cerebral infarction without residual deficits; Z87.891 Personal history of nicotine dependence; Z87.19 Personal history of other diseases of the digestive system; Z80.52 Family history of malignant neoplasm of bladder; Z80.0 Family history of malignant neoplasm of digestive organs; Z79.01 Long term (current) use of anticoagulants; Z85.51 Personal history of malignant neoplasm of bladder; Z88.2 Allergy status to sulfonamides; Z88.8 Allergy status to other drugs, medicaments and biological substances; Z88.0 Allergy status to penicillin; Y92.009 Unspecified place in unspecified non-institutional (private) residence as the place of occurrence of the external cause
CPT/HCPCS: 36415; 70450; 71046; 72125; 80048; 80053; 85025; 85610; 85730; 93005; 94640; 99285

== ENCOUNTER → 2022-03-29 | Outpatient (CLI) | payer MEDICARE ==
--- NOTE | 2022-03-29 14:01 | CT ---
EXAMINATION TYPE: CT abdomen pelvis w con DATE OF EXAM: 03/29/2022 HISTORY: weight loss, diarrhea, hx of colon ca CT DLP: 433.5mGycm Automated Exposure Control for Dose Reduction was Utilized. CONTRAST: CT scan of the abdomen and pelvis is performed with oral and with IV Contrast, patient injected with 70cc mL of Isovue 300. COMPARISON: Most recent CT June 02, 2021 and older studies. FINDINGS: LUNG BASES: Cardiomegaly is redemonstrated. Calcification at level of the mitral valve is again seen. LIVER/GB: Cholecystectomy clips redemonstrated. Liver remains heterogeneously slightly hypodense rela tive to spleen without new suspicious mass. Small superior calcification redemonstrated presumed rylan gn. PANCREAS: No significant abnormality is seen. SPLEEN: No significant abnormality is seen. ADRENALS: No significant abnormality is seen. KIDNEYS: Symmetric cortical medullary uptake and excretion from both kidneys without concerning renal mass or hydronephrosis seen bilaterally. BOWEL: Oral contrast reaches level of rectum. Diverticula throughout the colon greatest in the sigmoi d colon redemonstrated. No CT evidence for acute diverticulitis. Mild to moderate wall thickening fro m the splenic flexure through the slightly redundant sigmoid colon into the rectum is identified on c urrent study. Redemonstration of proximal partial colectomy and small bowel anastomosis right abdomen . Few scattered nonspecific air-fluid levels throughout small bowel loops. No free air. No well-forme d fluid collection or abscess. Focal moderate thickening proximal transverse colon GENITAL ORGANS: Small size anteverted uterus with subcentimeter calcified fibroid redemonstrated. LYMPH NODES: No new greater than 1cm abdominal or pelvic lymph nodes are appreciated. OSSEOUS STRUCTURES: Underlying scoliosis with moderate multilevel spurring in the spine redemonstrate d. Moderate narrowing of both hip joints again seen. OTHER: Moderate calcified plaque of the aorta extends into branch vessels. IMPRESSION: 1. Mild to moderate wall thickening distal one half of the colon now identified. One must consider un complicated distal colitis. Correlate clinically. Differential includes infectious, inflammatory, and ischemic etiologies. 2. Suspicious focal area of proximal transverse colon in which recurrent or new neoplasm cannot be ex cluded. Correlation with colonoscopy follow-up advised.
== END | disposition home or self-care (01) ==
LOC: RADCTMAIN 10:56
PROVIDERS: ATTEND Internal Medicine Gastroenterology
DX: R63.4 Abnormal weight loss (principal); K52.9 Noninfective gastroenteritis and colitis, unspecified
CPT/HCPCS: 82565; 84520; 74177; 36415; Q9967

== ENCOUNTER 2022-06-01 11:51 | Inpatient (IN) | payer MEDICARE ==
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
[2022-06-01 12:54] LABS: Basophils % (A) 0 %; Eosinophils # (A) 0.2 k/uL (0-0.7); Eosinophils % (A) 2 %; HCT 42.6 % (34.0-46.0); HGB 13.3 gm/dL (11.4-16.0); Hypochromasia Slight; Lymphocytes # (A) 0.8 k/uL (1.0-4.8); Lymphocytes % (A) 9 %; MCH 28.6 pg (25.0-35.0); MCHC 31.2 g/dL (31.0-37.0); MCV 91.4 fL (80.0-100.0); Mean Platelet Volume 8.3; Monocytes # (A) 0.6 k/uL (0-1.0); Monocytes % (A) 6 %; Neutrophils # (A) 7.5 k/uL (1.3-7.7); Neutrophils % (A) 82 %; Platelet Count 261 k/uL (150-450); RBC 4.66 m/uL (3.80-5.40); RDW 14.6 % (11.5-15.5); WBC 9.1 k/uL (3.8-10.6)
[2022-06-01 13:09] LABS: Albumin 4.9 g/dL (3.5-5.0); Calcium 9.7 mg/dL (8.4-10.2); Total Bilirubin 1.4 mg/dL (0.2-1.3)
[2022-06-01 13:14] LABS: INR 1.2 (<1.2); Partial Thromboplastin Time 26.9 sec (22.0-30.0); Prothrombin Time 12.4 sec (9.0-12.0)
--- NOTE | 2022-06-01 13:19 | XR ---
EXAMINATION TYPE: XR chest 2V DATE OF EXAM: 06/01/2022 COMPARISON: 03/26/2022 HISTORY: 72 year-old female shortness of breath, difficulty TECHNIQUE: AP and lateral views FINDINGS: Heart mildly enlarged. Mild interstitial prominence. There may be trace effusions. Hyperinflation. IMPRESSION: Correlate for CHF with pulmonary vascular congestion superimposed on COPD.
[2022-06-01] MEDS ORDERED: FUROSEMIDE 10 MG/ML 2 ML VIAL IV ONE (14:01)
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
[2022-06-01] MEDS ORDERED: NITROGLYCERIN SL TABS 0.4 MG TAB SUBLINGUAL PRN (14:56)
[2022-06-01] MEDS ORDERED: ASPIRIN 81 MG PO STA (14:56)
[2022-06-01] MEDS ORDERED: ALBUTEROL NEBULIZED 2.5 MG/3 ML INHALATION PRN (17:47)
[2022-06-01] MEDS: NITROGLYCERIN OINT 1 INCH/GM PACKET TOPICAL SCH ×2 (19:36→23:53)
[2022-06-01] MEDS ORDERED: PILOCARPINE 5 MG TAB PO PRN (21:00)
[2022-06-01] MEDS ORDERED: ALPRAZolam 0.5 MG TAB PO PRN (21:00)
[2022-06-01] MEDS: ATORVASTATIN 40 MG TAB PO SCH (21:06)
[2022-06-01] MEDS: APIXABAN 5 MG TAB PO SCH (21:06)
[2022-06-01] MEDS: hydrALAZINE HCL 50 MG TAB PO SCH (21:07)
[2022-06-01] MEDS: POTASSIUM CHLORIDE ER 20 MEQ TAB.ER PO SCH (21:07)
[2022-06-01] MEDS: DIPHENOX-ATROP 2.5-0.025 MG 1 EACH TAB PO SCH (21:07)
[2022-06-01] MEDS: FUROSEMIDE 10 MG/ML 2 ML VIAL IV SCH (23:52)
[2022-06-02] MEDS: NITROGLYCERIN OINT 1 INCH/GM PACKET TOPICAL SCH (04:56)
[2022-06-02] MEDS: MIDODRINE 5 MG TAB PO SCH ×3 (06:25→18:24)
[2022-06-02 07:53] LABS: African American GFR (CKD) 51 (>60 ml/min/1.73 sqM); Anion Gap 6 mmol/L; Blood Urea Nitrogen 22 mg/dL (7-17); Calcium 8.9 mg/dL (8.4-10.2); Carbon Dioxide 28 mmol/L (22-30); Chloride 104 mmol/L (98-107); Glucose 92 mg/dL (74-99); Non-African American GFR(CKD) 44 (>60 ml/min/1.73 sqM); Sodium 138 mmol/L (137-145)
[2022-06-02 07:56] LABS: Potassium 4.9 mmol/L (3.5-5.1)
[2022-06-02] MEDS ORDERED: ASPIRIN 325 MG TAB PO SCH (09:00)
[2022-06-02] MEDS: POTASSIUM CHLORIDE ER 20 MEQ TAB.ER PO SCH ×2 (09:04→21:30)
[2022-06-02] MEDS: SYMBICORT 80-4.5 MCG INHALER INHALATION SCH ×2 (09:04→19:37)
[2022-06-02] MEDS: hydrALAZINE HCL 50 MG TAB PO SCH ×2 (09:50→21:30)
[2022-06-02] MEDS: FUROSEMIDE 10 MG/ML 2 ML VIAL IV SCH ×2 (09:50→17:38)
[2022-06-02] MEDS: OXYBUTYNIN 10 MG TAB.ER.24 PO SCH (09:50)
[2022-06-02] MEDS: DIPHENOX-ATROP 2.5-0.025 MG 1 EACH TAB PO SCH ×4 (09:50→21:30)
[2022-06-02] MEDS: APIXABAN 5 MG TAB PO SCH ×2 (09:50→21:30)
[2022-06-02] MEDS: PARoxetine 20 MG TAB PO SCH (09:50)
--- NOTE | 2022-06-02 10:24 | P.CRDCN ---
History of Present Illness History of present illness: This is a 72-year-old female with past medical history significant for known bradycardia with HR 40s by event monitor in the office, atrial flutter, paroxysmal atrial fibrillation on Eliquis, CVA, hypertension, GERD, colon cancer, seizure disorder, [place], COPD, former tobacco use. She follows in the office with Dr. Key. We are asked to see in consultation for bradycardia and elevated troponin. Patient presents emergency department with hypoxia. She is somewhat confused of what happened. She states leonora she was at [employer] and was apparently falling asleep frequently. Her oxygen saturations were checked and found to have an oxygen saturation of 84%. She has been having some mild shortnesss of breath but states it is the same symptoms for the past 2 years. She denies any chest pain, lightheadedness, dizziness, syncope or near syncope. She denies any palpitations. She was started on IV Lasix and her symptoms have improved DIAGNOSTICS * EKG reveals atrial flutter, heart rate 43, prior EKG with similar findinsg * Holter monitor in the office here 12/2021 revealed atrial flutter with heart rates 40s- 60s No pauses more than 2 seconds. * Echocardiogram, showed an EF of 5055 %moderate pulmonary hypertension, mild aortic stenosis with a peak/mean gradient of 27 mmHg/14 mmHg, RVSP 41 mmHg * Telemetry tracings indicate atrial flutter with heart rates 38-40s, similar to prior admissions * Chest xray pulmonary vascular congestion present. * CT of the head with no acute intracranial abnormality, no acute fracture of cervical spine reported * Laboratory reviewed CBC unremarkable, sodium 138, potassium 4.9, BUN 22, serum creatinine 1.2, troponins are 0.03, 0.03, 0.03, pro BNP 3,280 * Current home cardiac medications include hydralazine 50 mg twice a day, potassium chloride 20meq BID, Lasix 20 mg daily, atorvastatin 40 mg daily, Eliquis 5 mg twice a day. * She underwent cardiac catheterization Dr. Key on 10/01/2021 which revealed nonobstructive coronary artery disease. REVIEW OF SYSTEMS At the time of my exam: CONSTITUTIONAL: Denies fever or chills. CARDIOVASCULAR: Denies chest pain, +shortness of breath, Denies orthopnea, PND or palpitations. RESPIRATORY: Denies cough. GASTROINTESTINAL: Denies abdominal pain, constipation, nausea or vomiting. MUSCULOSKELETAL: Denies myalgias. NEUROLOGIC: Denies numbness, tingling, headacbe or weakness. ENDOCRINE: Denies fatigue, weight change, polydipsia or polyurina. GENITOURINARY: Denies burning, hematuria or urgency with micturation. HEMATOLOGIC: Denies history of anemia or bleeding. PHYSICAL EXAMINATION Vitals reviewed CONSTITUTIONAL: No apparent distress. HEENT: Bruising right side of forehead from fall. Bruising across left eye. Head is normocephalic. Pupils are equal, round. Sclerae anicteric. Mucous membranes of the mouth are moist. No JVD. No carotid bruit. CHEST EXAMINATION: Lungs diminished bilaterally to auscultation. No chest wall tenderness is noted on palpation or with deep breathing. HEART EXAMINATION: Irregular rate and rhythm. S1, S2 heard. Systolic murmur at apex and right sternal border ABDOMEN: Soft, nontender. Positive bowel sounds. EXTREMITIES: 2+ peripheral pulses, no lower extremity edema and no calf tenderness. NEUROLOGIC EXAMINATION: Patient is awake, alert and oriented x3. ASSESSMENT Acute on chronic heart failure with preserved ejection fraction Hypoxia Acute kidney injury Elevated troponin, secondary to type II demand ischemia secondary to hypoxia, not consistent with Acute coronary syndrome, patient without chest pain Typical atrial flutter, with bradycardia, known history Non-obstructive CAD Paroxysmal atrial fibrillation on Eliquis History of hypertension History of CVA History of seizure disorder History of COPD Diarrhea, C diff negative PLAN IV Lasix Monitor I/Os, daily weights, renal function and electrolytes Continue anticoagulation with Eliquis Continue home cardiac medications Further recommendations base on clinical course Nurse Practitioner note has been reviewed, I agree with a documented findings and plan of care. Patient was seen and examined. Past Medical History Past Medical History: Cancer, COPD, CVA/TIA, GERD/Reflux, GI Bleed, Hypertension, Musculoskeletal Disorder Additional Past Medical History / Comment(s): Colon cancer 2016/right colectomy- had surg. 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 Seizure, fx. R ankle, sciatica, chronic diarrhea, chronic atrial flutter, recent adm. [facility] for low potassium, supposed to use oxygen RTC but doesn't always, not sure what it's set at History of Any Multi-Drug Resistant Organisms: None Reported Past Surgical History: Bowel Resection, Cholecystectomy, Orthopedic Surgery, Tonsillectomy Additional Past Surgical History / Comment(s): right wrist surgery post fracture, robotic colectomy Past Anesthesia/Blood Transfusion Reactions: No Reported Reaction Past Psychological History: Anxiety Smoking Status: Former smoker Past Alcohol Use History: Occasional Additional Past Alcohol Use History / Comment(s): Quit smoking Jun 2016, smoked 45 yrs, <1PPD. Past Drug Use History: None Reported - Past Family History Mother Family Medical History: Cancer Additional Family Medical History / Comment(s): Bladder cancer. Sister(s) Family Medical History: Cancer Additional Family Medical History / Comment(s): Colon cancer. Medications and Allergies Home Medications Medication Instructions Recorded Confirmed Type RX: Fluticasone/Umeclidin/Vilanter 1 puff INHALATION RT-DAILY 03/04/21 06/01/22 History [Trelerichie Ellipta 100-62.5-25] RX: PARoxetine HCL 40 mg PO DAILY 03/04/21 06/01/22 History RX: Atorvastatin [Lipitor] 40 mg PO HS #30 tablet 03/06/21 06/01/22 Rx RX: Apixaban [Eliquis] 5 mg PO BID 09/27/21 06/01/22 History RX: Oxybutynin Chloride 10 mg PO DAILY 10/20/21 06/01/22 History [Oxybutynin Chloride ER] RX: ALPRAZolam [Xanax] 0.5 mg PO BID PRN #6 tab 10/22/21 06/01/22 Rx RX: Furosemide [Lasix] 20 mg PO DAILY #30 tab 11/20/21 06/01/22 Rx RX: Albuterol Inhaler [Ventolin 2 puff PO RT-Q6H PRN 02/27/22 06/01/22 History Hfa Inhaler] RX: Potassium Chloride ER [K-Dur 20 meq PO BID #60 tab 03/02/22 06/01/22 Rx 20] Budesonide [Entocort EC] 3 mg PO TID 06/01/22 06/01/22 History Midodrine HCl [ProAmantine] 2.5 mg PO TID 06/01/22 06/01/22 History RX: Diphenox-Atrop 2.5-0.025 mg 2 tab PO QID 06/01/22 06/01/22 History [Lomotil] RX: Pilocarpine [Salagen] 5 mg PO TID PRN 06/01/22 06/01/22 History RX: hydrALAZINE HCL 50 mg PO BID 06/01/22 06/01/22 History Allergies Allergy/AdvReac Type Severity Reaction Status Date / Time benazepril Allergy Anaphylaxis Verified 03/26/22 10:55 Penicillins Allergy Face Verified 03/26/22 10:55 swelling sertraline [From Zoloft] Allergy Face Verified 03/26/22 10:55 swelling Sulfa (Sulfonamide Allergy Face Verified 03/26/22 10:55 Antibiotics) swelling Physical Exam Vitals: Vital Signs Temp Pulse Pulse Resp BP BP Pulse Ox 06/02/22 04:51 98.2 F 42 L 16 147/68 95 06/02/22 02:00 40 L 18 06/01/22 23:57 98.1 F 41 L 16 130/58 97 06/01/22 20:08 98.4 F 47 L 16 124/59 99 06/01/22 20:00 41 L 18 06/01/22 17:29 98.4 F 46 L 16 139/55 94 L 06/01/22 17:05 98.0 F 44 L 18 155/70 98 06/01/22 15:38 40 L 18 95 06/01/22 15:05 42 L 20 156/59 97 06/01/22 14:18 41 L 18 98 06/01/22 14:04 40 L 20 150/75 98 06/01/22 13:50 43 L 20 06/01/22 11:57 98 F 45 L 20 143/53 93 L Intake and Output 06/01/22 06/02/22 06/02/22 22:59 06:59 14:59 Intake Total 240 Balance 240 Intake: Oral 240 Other: Voiding Method Toilet Toilet # Voids 1 Weight 56.699 kg Results 06/01/22 12:39 06/02/22 07:10 Cardiac Enzymes 06/01/22 06/01/22 06/01/22 Range/Units 12:39 12:39 15:29 AST 35 (14-36) U/L Troponin I 0.035 H* 0.033 (0.000-0.034) ng/mL 06/01/22 Range/Units 19:10 AST (14-36) U/L Troponin I 0.036 H* (0.000-0.034) ng/mL Coagulation 06/01/22 Range/Units 12:39 PT 12.4 H (9.0-12.0) sec APTT 26.9 (22.0-30.0) sec CBC 06/01/22 Range/Units 12:39 WBC 9.1 (3.8-10.6) k/uL RBC 4.66 (3.80-5.40) m/uL Hgb 13.3 (11.4-16.0) gm/dL Hct 42.6 (34.0-46.0) % Plt Count 261 (150-450) k/uL Comprehensive Metabolic Panel 06/01/22 Range/Units 12:39 Sodium 139 (137-145) mmol/L Potassium 5.0 (3.5-5.1) mmol/L Chloride 101 (98-107) mmol/L Carbon Dioxide 25 (22-30) mmol/L BUN 21 H (7-17) mg/dL Creatinine 1.24 H (0.52-1.04) mg/dL Glucose 90 (74-99) mg/dL Calcium 9.7 (8.4-10.2) mg/dL AST 35 (14-36) U/L ALT 24 (4-34) U/L Alkaline Phosphatase 109 (38-126) U/L Total Protein 8.0 (6.3-8.2) g/dL Albumin 4.9 (3.5-5.0) g/dL Current Medications Generic Name Dose Route Start Last Admin Trade Name Freq PRN Reason Stop Dose Admin Albuterol Sulfate 2.5 mg 06/01/22 17:47 Albuterol Nebulized 2.5 Mg/3 Ml INHALATION RT-Q6H PRN Shortness Of Breath Alprazolam 0.5 mg 06/01/22 21:00 Alprazolam 0.5 Mg Tab PO BID PRN Anxiety Apixaban 5 mg 06/01/22 21:00 06/01/22 21:06 Apixaban 5 Mg Tab PO 5 mg BID MELINA Administration Protocol Aspirin 325 mg 06/02/22 09:00 Aspirin 325 Mg Tab PO DAILY EMLINA Atorvastatin Calcium 40 mg 06/01/22 21:00 06/01/22 21:06 Atorvastatin 40 Mg Tab PO 40 mg HS MELINA Administration Budesonide/Formoterol Fumarate 2 puff 06/02/22 08:00 Symbicort 80-4.5 Mcg Inhaler INHALATION RT-BID [facility] Diphenoxylate HCl/Atropine 2 each 06/01/22 22:00 06/01/22 21:07 Diphenox-Atrop 2.5-0.025 Mg 1 Each Tab PO 2 each QID MELINA Administration Furosemide 20 mg 06/02/22 00:00 06/01/22 23:52 Furosemide 10 Mg/Ml 2 Ml Vial IV 20 mg Q8HR MELINA Administration Hydralazine HCl 50 mg 06/01/22 21:00 06/01/22 21:07 Hydralazine Hcl 50 Mg Tab PO 50 mg BID [facility] Administration Midodrine 2.5 mg 06/02/22 07:30 06/02/22 06:25 Midodrine 5 Mg Tab PO Not Given AC-TID MELINA Nitroglycerin 0.4 mg 06/01/22 14:56 Nitroglycerin Sl Tabs 0.4 Mg Tab SUBLINGUAL Q5M PRN Chest Pain Nitroglycerin 1 inch 06/01/22 18:00 06/02/22 04:56 Nitroglycerin Oint 1 Inch/Gm Packet TOPICAL Not Given Q6HR [facility] Budesonide [Entocort 3 mg 06/01/22 22:00 06/01/22 21:11 Ec] 3 Mg Capdr...Er PO Not Given TID [facility] Oxybutynin Chloride 10 mg 06/02/22 09:00 Oxybutynin 10 Mg Tab.Er.24 PO DAILY [facility] Paroxetine HCl 40 mg 06/02/22 09:00 Paroxetine 20 Mg Tab PO DAILY [facility] Pilocarpine HCl 5 mg 06/01/22 21:00 Pilocarpine 5 Mg Tab PO TID PRN Dry Mouth Potassium Chloride 20 meq 06/01/22 21:00 06/01/22 21:07 Potassium Chloride Er 20 Meq Tab.Er PO 20 meq BID MELINA Administration Intake and Output 06/01/22 06/02/22 06/02/22 22:59 06:59 14:59 Intake Total 240 Balance 240 Intake: Oral 240 Other: Voiding Method Toilet Toilet # Voids 1 Weight 56.699 kg 06/01/22 12:39 06/01/22 12:39
[2022-06-02 10:37] LABS: Chol/HDL Ratio 1.93 Ratio; LDL Cholesterol,Calculated 44.7 mg/dL (0.0-131.0); VLDL Calculation 18.04 mg/dL (5.00-40.00)
--- NOTE | 2022-06-02 17:37 | P.HPIM ---
History of Present Illness H&P Date: 06/02/22 Chief Complaint: Short of breath This is a pleasant 72-year-old patient, Dr. Ty. Follows with paper sealer Dr. Phelps, thermoscrew operator Dr. Karlene Jacobson. Chronic stable medical conditions include GERD, hypertension, colon cancer, seizure, sciatica, COPD. February 2021 - right brainstem thalamic stroke. Atrial flutter-fibrillation on eliquis. Collagenous colitis. 2021. cardiac catheterization.- No significant disease. chronic dry mouth.-On Salagen . Diastolic CHF Recently admitted in the hospital from February 27 to March 03 with severe hypokalemia, metabolic alkalosis from diuresis. Patient was at the Bible study when summary sitting next to her was a retired nurse noticed her to be dozing off. Pulse ox was checked her pulse ox was in the 80s. Normally doesn't the 90s. Patient sent to the ER. Some shortness of breath. No she feels this is her baseline. Appetite was lost for some time is not come back. Patient lost close to 40 pounds. No chest pain. Patient is in atrial flutter with a heart rate in the 40s. Has followed with Dr. Karlene Jacobson for t he same. No chest pain. No edema. Review of systems: GEN.: Tired, EYES: None HEENT: Dry mouth NECK: None RESPIRATORY: Baseline some shortness of breath CARDIOVASCULAR: None GASTROINTESTINAL: Occasional diarrhea GENITOURINARY: None MUSCULOSKELETAL: Joint pains] LYMPHATICS: None HEMATOLOGICAL: None PSYCHIATRY: Occasional confusion, anxiety, forgetful NEUROLOGICAL: No focal symptoms Past medical history to include: Colon cancer treated with chemotherapy and surgery in 2015, sciatica, essential hypertension, GERD, COPD. right brainstem thalamic stroke in February 2021, chronic dry mouth, major depressive disorder, collagenous colitis atrial flutter home oxygen 2 L Social history: . Smoked less than a pack a day for 45 years stopped in 2017. Alcohol occasionally. Family history: Bladder cancer Physical examination: VITAL SIGNS: 97.8, 39, 18, 126/62, 94% on 3 L GENERAL: BMI 21.8, sitting up bed, awake, but short of breath EYES: Pupils equal. Conjunctiva normal. HEENT: External appearance of nose and ears normal, oral cavity dry mucous membranes NECK: JVD not raised; masses not palpable. HEART: Heart sounds irregular; no edema. LUNGS: Respiratory rate increased; decreased breath sounds. ABDOMEN: Soft, nontender, liver spleen not palpable, no masses palpable. PSYCH: Alert and oriented x3; mood and affect anxious. MUSCULOSKELETAL:No Clubbing/cyanosis;muscles-grossly intact. OA. LYMPHATICS: No lymph nodes palpable in neck and axilla INVESTIGATIONS, reviewed in the clinical context: White count 9.1 hemoglobin 13.3 platelets 261 potassium 5 BUN 21 creatinine 1.24 Troponin I 0.035, 0.033, 0.036 LDL 44.7 EKG tracing personally reviewed by me-atrial flutter, rate 43 Chest x-ray film personally reviewed by me-cephalization, venous prominence Previous studies: 2-D echocardiogram [September 2021]: Severe concentric LVH. EF 55-60%. Possible LVOT obstruction. Moderate MR. Cardiac catheterization [September 2021]: Mild nonobstructive disease Assessment and plan: -Acute congestive heart failure exacerbation from diastolic dysfunction EF 55-60%. IV Lasix 20 mg every 8. Fluid restriction 2000 mL a day -Chronic hypoxic respiratory failure from underlying COPD 2 L of oxygen at home -History of colon cancer with a right colectomy and chemo. -COPD in a X smoker sherry, Jem -Moderate mitral regurgitation Follow clinically -Chronic xerostomia Salagen -Primary osteoarthritis Pain medications as needed -Hypertensive heart disease -Chronic urinary stress incontinence Oxybutynin -Major depressive disorder. Controlled Xanax 0.5 mg twice a day when necessary, Paxil 40 mg daily. -Essential hypertension Hydralazine 50 mg 2 times a day -Persistent atrial flutter fibrillation: Bradycardia heart rate in the 40s. eliquis. Patient does follow with Dr. Karlene Jacobson. He is aware of the low heart rate. Not for any further intervention -Mild cognitive impairment IV Lasix 20 mg every 8. Resume home medications. Fluid ejection 2000 mL a day. Discussed with patient. Discussed with ORNAMENTAL BRONZE WORKER from cardiology in regarding the heart rate.aware. Not for any further intervention for now. Past Medical History Past Medical History: Cancer, COPD, CVA/TIA, GERD/Reflux, GI Bleed, Hypertension, Musculoskeletal Disorder Additional Past Medical History / Comment(s): Colon cancer 2015/right colectomy- had surg. 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 Seizure, fx. R ankle, scia wendi, chronic diarrhea, chronic atrial flutter, recent adm. [facility] for low potassium, supposed to use oxygen RTC but doesn't always, not sure what it's set at History of Any Multi-Drug Resistant Organisms: None Reported Past Surgical History: Bowel Resection, Cholecystectomy, Orthopedic Surgery, Tonsillectomy Additional Past Surgical History / Comment(s): right wrist surgery post fracture, robotic colectomy Past Anesthesia/Blood Transfusion Reactions: No Reported Reaction Past Psychological History: Anxiety Smoking Status: Former smoker Past Alcohol Use History: Occasional Additional Past Alcohol Use History / Comment(s): Quit smoking Jun 2016, smoked 45 yrs, <1PPD. Past Drug Use History: None Reported - Past Family History Mother Family Medical History: Cancer Additional Family Medical History / Comment(s): Bladder cancer. Sister(s) Family Medical History: Cancer Additional Family Medical History / Comment(s): Colon cancer. Medications and Allergies Home Medications Medication Instructions Recorded Confirmed Type Fluticasone/Umeclidin/Vilanter 1 puff INHALATION RT-DAILY 03/04/21 06/01/22 History [Sherry Ellipta 100-62.5-25] PARoxetine HCL 40 mg PO DAILY 03/04/21 06/01/22 History Atorvastatin [Lipitor] 40 mg PO HS #30 tablet 03/06/21 06/01/22 Rx Apixaban [Eliquis] 5 mg PO BID 09/27/21 06/01/22 History Oxybutynin Chloride [Oxybutynin 10 mg PO DAILY 10/20/21 06/01/22 History Chloride ER] ALPRAZolam [Xanax] 0.5 mg PO BID PRN #6 tab 10/22/21 06/01/22 Rx Furosemide [Lasix] 20 mg PO DAILY #30 tab 11/20/21 06/01/22 Rx Albuterol Inhaler [Ventolin Hfa 2 puff PO RT-Q6H PRN 02/27/22 06/01/22 History Inhaler] Potassium Chloride ER [K-Dur 20] 20 meq PO BID #60 tab 03/02/22 06/01/22 Rx Budesonide [Entocort EC] 3 mg PO TID 06/01/22 06/01/22 History Diphenox-Atrop 2.5-0.025 mg 2 tab PO QID 06/01/22 06/01/22 History [Lomotil] Midodrine HCl [ProAmantine] 2.5 mg PO TID 06/01/22 06/01/22 History Pilocarpine [Salagen] 5 mg PO TID PRN 06/01/22 06/01/22 History hydrALAZINE HCL 50 mg PO BID 06/01/22 06/01/22 History Allergies Allergy/AdvReac Type Severity Reaction Status Date / Time benazepril Allergy Anaphylaxis Verified 03/26/22 10:55 Penicillins Allergy Face Verified 03/26/22 10:55 swelling sertraline [From Zoloft] Allergy Face Verified 03/26/22 10:55 swelling Sulfa (Sulfonamide Allergy Face Verified 03/26/22 10:55 Antibiotics) swelling Physical Exam Vitals: Vital Signs Temp Pulse Pulse Resp BP BP Pulse Ox 06/02/22 08:00 97.8 F 39 L 18 126/62 94 L 06/02/22 04:51 98.2 F 42 L 16 147/68 95 06/02/22 02:00 40 L 18 06/01/22 23:57 98.1 F 41 L 16 130/58 97 06/01/22 20:08 98.4 F 47 L 16 124/59 99 06/01/22 20:00 41 L 18 06/01/22 17:29 98.4 F 46 L 16 139/55 94 L 06/01/22 17:05 98.0 F 44 L 18 155/70 98 06/01/22 15:38 40 L 18 95 06/01/22 15:05 42 L 20 156/59 97 06/01/22 14:18 41 L 18 98 06/01/22 14:04 40 L 20 150/75 98 06/01/22 13:50 43 L 20 06/01/22 11:57 98 F 45 L 20 143/53 93 L Intake and Output 06/01/22 06/02/22 06/02/22 22:59 06:59 14:59 Intake Total 240 Balance 240 Intake: Oral 240 Other: Voiding Method Toilet Toilet # Voids 1 Weight 56.699 kg Results CBC & Chem 7: 06/01/22 12:39 06/02/22 07:10 Labs: Abnormal Lab Results - Last 24 Hours (Table) 06/01/22 06/01/22 06/01/22 Range/Units 12:39 12:39 12:39 Lymphocytes # 0.8 L (1.0-4.8) k/uL PT 12.4 H (9.0-12.0) sec INR 1.2 H (<1.2) BUN 21 H (7-17) mg/dL Creatinine 1.24 H (0.52-1.04) mg/dL Total Bilirubin 1.4 H (0.2-1.3) mg/dL Troponin I (0.000-0.034) ng/mL 06/01/22 06/01/22 06/02/22 Range/Units 12:39 19:10 07:10 Lymphocytes # (1.0-4.8) k/uL PT (9.0-12.0) sec INR (<1.2) BUN 22 H (7-17) mg/dL Creatinine 1.21 H (0.52-1.04) mg/dL Total Bilirubin (0.2-1.3) mg/dL Troponin I 0.035 H* 0.036 H* (0.000-0.034) ng/mL Thrombosis Risk Factor Assmnt - Choose All That Apply Any of the Below Risk Factors Present?: Yes Each Factor Represents 1 point: Abnormal pulmonary function (COPD) Each Risk Factor Represents 2 Points: Age 61-74 years Thrombosis Risk Factor Assessment Total Risk Factor Score: 3 Thrombosis Risk Factor Assessment Level: Moderate Risk
[2022-06-02 19:56] VITALS: RESP 16
[2022-06-02] MEDS: ATORVASTATIN 40 MG TAB PO SCH (21:30)
[2022-06-03] MEDS: FUROSEMIDE 10 MG/ML 2 ML VIAL IV SCH ×2 (00:20→09:48)
[2022-06-03] MEDS: MIDODRINE 5 MG TAB PO SCH ×2 (07:07→12:17)
[2022-06-03] MEDS: SYMBICORT 80-4.5 MCG INHALER INHALATION SCH (08:33)
[2022-06-03 08:41] LABS: Calcium 8.6 mg/dL (8.4-10.2)
[2022-06-03 08:43] VITALS: TEMP 98.8
[2022-06-03] MEDS: PARoxetine 20 MG TAB PO SCH (08:52)
[2022-06-03] MEDS: POTASSIUM CHLORIDE ER 20 MEQ TAB.ER PO SCH (08:52)
[2022-06-03] MEDS: hydrALAZINE HCL 50 MG TAB PO SCH (08:52)
[2022-06-03] MEDS: OXYBUTYNIN 10 MG TAB.ER.24 PO SCH (08:52)
[2022-06-03] MEDS: APIXABAN 5 MG TAB PO SCH (08:53)
[2022-06-03] MEDS: DIPHENOX-ATROP 2.5-0.025 MG 1 EACH TAB PO SCH ×2 (09:11→12:17)
--- NOTE | 2022-06-03 11:21 | P.PN ---
Subjective This is a 72-year-old female with past medical history significant for known bradycardia with HR 40s by event monitor in the office, atrial flutter, paroxysmal atrial fibrillation on Eliquis, CVA, hypertension, GERD, colon cancer, seizure disorder, [place], COPD, former tobacco use. She follows in the office with Dr. Key. We are asked to see in consultation for bradycardia and elevated troponin. Patient presents emergency department with hypoxia. She is somewhat confused of what happened. She states leonora she was at Bible study and was apparently falling asleep frequently. Her oxygen saturations were checked and found to have an oxygen saturation of 84%. She was started on IV Lasix. Patient seen and examined at bedside, no acute distress. She denies any chest pain or shortness of breath. Overall she is feeling better. She continues to be in atrial flutter with heart rate in the 40s. She endorsess that she has worn an event Monitor and Holter monitor in the office. Blood pressure 122/64, heart rate 41, afebrile. Currently on IV Lasix. Decrease weight noted. I/Os not documented. GENERAL: Well-appearing, well-nourished and in no acute distress. NECK: Supple without JVD or thyromegaly. LUNGS: Breath sounds clear to auscultation bilaterally. Respiration equal and unlabored. No wheezes, rales or rhonchi. HEART: Irregular rhythm, bradycardic with Systolic murmur at apex and right sternal border, No rubs or gallops. S1 and S2 heard. EXTREMITIES: Normal range of motion, no edema. No clubbing or cyanosis. Peripheral pulses intact. ASSESSMENT Acute on chronic heart failure with preserved ejection fraction Hypoxia Acute kidney injury Elevated troponin, secondary to type II demand ischemia secondary to hypoxia, n ot consistent with Acute coronary syndrome, patient without chest pain Typical atrial flutter, with bradycardia, known history Non-obstructive CAD Paroxysmal atrial fibrillation on Eliquis History of hypertension History of CVA History of seizure disorder History of COPD PLAN Transition to PO Lasix Recommend follow up with Dr. Key in 1-2 weeks, pacemaker implantation can be evaluated as an outptaient Continue anticoagulation with Eliquis Continue home cardiac medications Discharge per clearance from primary and other consultants Nurse Practitioner note has been reviewed, I agree with a documented findings and plan of care. Patient was seen and examined. Objective - Vital Signs Vital signs: Vital Signs Temp 98.8 F 06/03/22 08:41 Pulse 41 L 06/03/22 09:04 Resp 16 06/03/22 08:41 BP 122/64 06/03/22 08:41 Pulse Ox 96 06/03/22 08:41 FiO2 Intake & Output 06/02/22 06/03/22 06/03/22 18:59 06:59 18:59 Intake Total 240 Output Total 350 Balance -350 240 Weight 55.7 kg 55.4 kg Intake: Oral 240 Output: Urine 350 - Labs CBC & Chem 7: 06/01/22 12:39 06/03/22 07:14 Labs: Abnormal Lab Results - Last 24 Hours (Table) 06/03/22 Range/Units 07:14 BUN 21 H (7-17) mg/dL Creatinine 1.19 H (0.52-1.04) mg/dL
[2022-06-03 12:16] VITALS: BP 119/50
[2022-06-03 13:40] VITALS: PULSE 43
--- NOTE | 2022-06-03 14:04 | P.DS ---
Providers Date of admission: 06/01/22 14:56 Expected date of discharge: 06/03/22 Attending physician: Juan Villegas Consults: 06/01/22 14:56 Consult Physician Urgent Consulting Provider: [facility] Consult Reason/Comments: Elevated troponin, bradycardia Do you want consulting provider notified?: Yes 06/01/22 15:14 Consult Physician Urgent Consulting Provider: William Ramirez Consult Reason/Comments: COPD, shortness of breath Do you want consulting provider notified?: Yes Primary care physician: [facility] Course: Chief Complaint: Short of breath This is a pleasant 72-year-old patient, Dr. Ty. Follows with body shop supervisor Dr. Phelps, city director Dr. Karlene Jacobson. Chronic stable medical conditions include GERD, hypertension, colon cancer, seizure, sciatica, COPD. February 2021 - right brainstem thalamic stroke. Atrial flutter-fibrillation on eliquis. Collagenous colitis. 2021. cardiac catheterization.- No significant disease. chronic dry mouth.-On Salagen . Diastolic CHF Recently admitted in the hospital from February 27 to March 03 with severe hypokalemia, metabolic alkalosis from diuresis. Patient was at the Bible study when summary sitting next to her was a retired nurse noticed her to be dozing off. Pulse ox was checked her pulse ox was in the 80s. Normally doesn't the 90s. Patient sent to the ER. Some shortness of breath. No she feels this is her baseline. Appetite was lost for some time is not come back. Patient lost close to 40 pounds. No chest pain. Patient is in atrial flutter with a heart rate in the 40s. Has followed with Dr. Karlene Jacobson for the same. No chest pain. No edema. Admitted with acute seizures exacerbation. Receive IV Lasix. 06/03/2022: Breathing better. Changed over to by mouth Lasix. Care was discussed at length with the patient. collagenous colitis is controlled with budesonide. Questions were answered. Advised patient to do mindfulness. Discussed with the Vasyl on the phone. Cardiology is aware of patient's heart rate being around 40. Off any further intervention. Discussion and discharge planning more than 35 minutes Past medical history to include: Colon cancer treated with chemotherapy and surgery in 2016, sciatica, essential hypertension, GERD, COPD. right brainstem thalamic stroke in February 2021, chronic dry mouth, major depressive disorder, collagenous colitis atrial flutter home oxygen 2 L Social history: . Smoked less than a pack a day for 45 years stopped in 2017. Alcohol occasionally. Family history: Bladder cancer Physical examination: VITAL SIGNS: 98.8, 41, 16, 122/64, 96% on 2 L GENERAL: BMI 21.8, sitting up bed, awake, mild short of breath EYES: Pupils equal. Conjunctiva normal. HEENT: External appearance of nose and ears normal, oral cavity dry mucous membranes NECK: JVD not raised; masses not palpable. HEART: Heart sounds irregular; no edema. LUNGS: Respiratory rate increased; decreased breath sounds. ABDOMEN: Soft, nontender, liver spleen not palpable, no masses palpable. PSYCH: Alert and oriented x3; mood and affect anxious. MUSCULOSKELETAL:No Clubbing/cyanosis;muscles-grossly intact. OA. INVESTIGATIONS, reviewed in the clinical context: 06/03/2022: Potassium 4. 21 creatinine 1.19 White count 9.1 hemoglobin 13.3 platelets 261 potassium 5 BUN 21 creatinine 1.24 Troponin I 0.035, 0.033, 0.036 LDL 44.7 EKG tracing personally reviewed by me-atrial flutter, rate 43 Chest x-ray film personally reviewed by me-cephalization, venous prominence Previous studies: 2-D echocardiogram [September 2021]: Severe concentric LVH. EF 55-60%. Possible LVOT obstruction. Moderate MR. Cardiac catheterization [September 2021]: Mild nonobstructive disease Assessment and plan: -Acute congestive heart failure exacerbation from diastolic dysfunction EF 55- 60%. IV Lasix 20 mg every 8. Fluid restriction 2000 mL a day Discharge on Lasix 20 mg twice a day. -Chronic hypoxic respiratory failure from underlying COPD 2 L of oxygen at home -History of colon cancer with a right colectomy and chemo. -Collagenous colitis being followed by Dr. Kaveh Key Budesonide 3 mg by mouth 3 times a day -COPD in a X smoker Jem powell -Moderate mitral regurgitation Follow clinically -Chronic xerostomia Salagen -Primary osteoarthritis Pain medications as needed -Hypertensive heart disease -Chronic urinary stress incontinence Oxybutynin -Chronic gait dysfunction, uses a walker at baseline -Major depressive disorder. Controlled Xanax 0.5 mg twice a day when necessary, Paxil 40 mg daily. -Essential hypertension Hydralazine 50 mg 2 times a day -Persistent atrial flutter fibrillation: Bradycardia heart rate in the 40s. eliqukaelyn. Patient does follow with Dr. Karlene Jacobson. He is aware of the low heart rate. Not for any further intervention -Mild cognitive impairment Disposition: Home Plan - Discharge Summary Discharge Rx Participant: No New Discharge Prescriptions: Continue PARoxetine HCL 40 mg PO DAILY Atorvastatin [Lipitor] 40 mg PO HS #30 tablet Oxybutynin Chloride [Oxybutynin Chloride ER] 10 mg PO DAILY Potassium Chloride ER [K-Dur 20] 20 meq PO BID #60 tab Pilocarpine [Salagen] 5 mg PO TID PRN PRN Reason: Dry Mouth Midodrine HCl [ProAmantine] 2.5 mg PO TID hydrALAZINE HCL 50 mg PO BID Fluticasone/Umeclidin/Vilanter [Trelegy Ellipta 100-62.5-25] 1 puff INHALATION RT-DAILY Apixaban [Eliquis] 5 mg PO BID ALPRAZolam [Xanax] 0.5 mg PO BID PRN #6 tab PRN Reason: Anxiety Albuterol Inhaler [Ventolin Hfa Inhaler] 2 puff PO RT-Q6H PRN PRN Reason: Shortness Of Breath Diphenox-Atrop 2.5-0.025 mg [Lomotil] 2 tab PO QID Budesonide [Entocort EC] 3 mg PO TID Changed Furosemide [Lasix] 20 mg PO BID #60 tab Discharge Medication List Fluticasone/Umeclidin/Vilanter [Trelegy Ellipta 100-62.5-25] 1 puff INHALATION RT-DAILY 03/04/21 [History] PARoxetine HCL 40 mg PO DAILY 03/04/21 [History] Atorvastatin [Lipitor] 40 mg PO HS #30 tablet 03/06/21 [Rx] Apixaban [Eliquis] 5 mg PO BID 09/27/21 [History] Oxybutynin Chloride [Oxybutynin Chloride ER] 10 mg PO DAILY 10/20/21 [History] ALPRAZolam [Xanax] 0.5 mg PO BID PRN #6 tab 10/22/21 [Rx] Albuterol Inhaler [Ventolin Hfa Inhaler] 2 puff PO RT-Q6H PRN 02/27/22 [History] Potassium Chloride ER [K-Dur 20] 20 meq PO BID #60 tab 03/02/22 [Rx] Budesonide [Entocort EC] 3 mg PO TID 06/01/22 [History] Diphenox-Atrop 2.5-0.025 mg [Lomotil] 2 tab PO QID 06/01/22 [History] Midodrine HCl [ProAmantine] 2.5 mg PO TID 06/01/22 [History] Pilocarpine [Salagen] 5 mg PO TID PRN 06/01/22 [History] hydrALAZINE HCL 50 mg PO BID 06/01/22 [History] Furosemide [Lasix] 20 mg PO BID #60 tab 06/03/22 [Rx] Follow up Appointment(s)/Referral(s): Davis Ty DO [Primary Care Provider] - 1-2 days Janusz Key MD [Family Provider] - 1 Week
[2022-06-03] MEDS ORDERED: FUROSEMIDE 20 MG TAB PO SCH (16:00)
== END 2022-06-03 15:47 | disposition home or self-care (01) | DRG 291 ==
LOC: EC 11:51 → 3SCARD 14:56
PROVIDERS: ADMIT Hospitalist; ATTEND Hospitalist
DX: I11.0 Hypertensive heart disease with heart failure (principal); I50.33 Acute on chronic diastolic (congestive) heart failure; I24.8 Other forms of acute ischemic heart disease; N17.9 Acute kidney failure, unspecified; J96.11 Chronic respiratory failure with hypoxia; I48.19 Other persistent atrial fibrillation; I48.92 Unspecified atrial flutter; I27.20 Pulmonary hypertension, unspecified; F32.9 Major depressive disorder, single episode, unspecified; J44.9 Chronic obstructive pulmonary disease, unspecified; G40.909 Epilepsy, unspecified, not intractable, without status epilepticus; I08.0 Rheumatic disorders of both mitral and aortic valves; Z79.01 Long term (current) use of anticoagulants; S00.12XA Contusion of left eyelid and periocular area, initial encounter; K11.7 Disturbances of salivary secretion; G31.84 Mild cognitive impairment of uncertain or unknown etiology; K52.831 Collagenous colitis; M19.91 Primary osteoarthritis, unspecified site; N39.3 Stress incontinence (female) (male); R26.9 Unspecified abnormalities of gait and mobility; I25.10 Atherosclerotic heart disease of native coronary artery without angina pectoris; S00.83XA Contusion of other part of head, initial encounter; K52.9 Noninfective gastroenteritis and colitis, unspecified; M54.30 Sciatica, unspecified side; K21.9 Gastro-esophageal reflux disease without esophagitis; R01.1 Cardiac murmur, unspecified; W19.XXXA Unspecified fall, initial encounter; R00.1 Bradycardia, unspecified; Z85.038 Personal history of other malignant neoplasm of large intestine; Z90.49 Acquired absence of other specified parts of digestive tract; Z92.21 Personal history of antineoplastic chemotherapy; Z87.891 Personal history of nicotine dependence; Z79.899 Other long term (current) drug therapy; Z80.0 Family history of malignant neoplasm of digestive organs; Z86.73 Personal history of transient ischemic attack (TIA), and cerebral infarction without residual deficits; Z91.81 History of falling; Z79.51 Long term (current) use of inhaled steroids; Z88.0 Allergy status to penicillin; Z88.2 Allergy status to sulfonamides; Z88.8 Allergy status to other drugs, medicaments and biological substances
CPT/HCPCS: 36415; 70450; 71046; 72125; 80048; 80053; 80061; 83880; 84484; 85025; 85610; 85730; 93005; 94640; 94760; 96374; 99285

== ENCOUNTER → 2022-06-07 | Outpatient (CLI) | payer MEDICARE ==
--- NOTE | 2022-06-07 13:53 | CT ---
EXAMINATION TYPE: CT ChestAbdPelvis w con DATE OF EXAM: 06/07/2022 COMPARISON: 03/29/2022 HISTORY: obs for mets. hx colon ca CT DLP: 558.70 mGycm CONTRAST: CT scan of the chest, abdomen and pelvis is performed with Oral Contrast and with IV Contrast, patien t injected with 70 mL of Isovue 300. CT Chest: LUNGS: Mild to moderate emphysematous changes noted. The lungs are clear and free of infiltrate or at electasis. No pulmonary nodule or mass is detected. No pleural effusion or CT evidence of interstit ial lung disease. MEDIASTINUM: Thoracic aorta is of normal caliber. The heart is enlarged. No evidence for mediasti nal mass or adenopathy. HILAR STRUCTURES: No evidence for mass. No hilar adenopathy is appreciated. OTHER: No significant abnormality. CONTRAST CT ABDOMEN AND PELVIS FINDINGS: LIVER/GB: The gallbladder is surgically absent. No space occupying hepatic lesion. Biliary tree is of normal caliber. PANCREAS: No inflammation. No distinct mass. SPLEEN: No splenic enlargement. No lesion seen. ADRENALS: No nodule. No thickening. KIDNEYS/BLADDER: No hydronephrosis. No nephrolithiasis. No distinct renal mass. BOWEL: Right hemicolectomy change without evidence for recurrent or residual mass. Normal bowel calib er. No inflammation. Moderate to large fecal burden in the rectosigmoid colon with impaction difficu lt to exclude. GENITAL ORGANS: No gross abnormality. LYMPH NODES: No greater than 1cm abdominal or pelvic lymph nodes are appreciated. AORTA: No significant abnormality. OSSEOUS STRUCTURES: Degenerative disc disease lumbar spine with vacuum disks noted. OTHER: No significant additional abnormality is seen. IMPRESSION: 1. Right hemicolectomy change without evidence for recurrent or residual mass. No evidence for metast atic disease. 2. Large fecal burden rectosigmoid colon with impaction difficult to exclude.
== END | disposition home or self-care (01) ==
LOC: RADCTMAIN 11:25
PROVIDERS: ATTEND Internal Medicine Hematology & Oncology
DX: C18.2 Malignant neoplasm of ascending colon (principal); K59.00 Constipation, unspecified
CPT/HCPCS: 82565; 84520; 71260; 74177; 36415; Q9967

== ENCOUNTER 2022-11-11 09:02 | Day surgery (SDC) | payer MEDICARE ==
[~2022-11-11 09:02] MED LIST changes: -HYDROmorphone 0.5 MG/0.5 ML SYRINGE IVP PRN; +LACTATED RINGERS 1,000 ML IV SCH; -LIDOCAINE 1% (10MG/ML) FOR IV START INTRADERMA PRN; -MIDAZOLAM 2 MG/2 ML VIAL IV ONE; -ONDANSETRON 4 MG/2 ML VIAL IVP ONE
[2022-11-11] MEDS ORDERED: LIDOCAINE 1% (10MG/ML) FOR IV START INTRADERMA ONE (09:50)
[2022-11-11 09:52] VITALS: TEMP 97.5
[2022-11-11] MEDS ORDERED: PROPOFOL 10 MG/ML 20 ML VIAL IV ONE (10:25)
[2022-11-11] MEDS ORDERED: BENZOCAINE SPRAY 1 CAN TOPICAL ONE (10:28)
[2022-11-11 10:50] VITALS: RESP 18
[2022-11-11 12:11] VITALS: BP 167/82; PULSE 50
--- NOTE | 2022-11-11 13:17 | PCN ---
PROCEDURE NOTE This is a 72-year-old lady who was brought in electively for a AMADOR cardioversion this morning. However, prior to her cardioversion, we found that she is extremely bradycardic with heart rates in the 40 beats per minute and she is not on any rate limiting medications. I am concerned that with cardioversion she might become more bradycardic. Hence, I decided to cancel her procedure at this time, leave her on Eliquis and continue to follow her regularly. MMODL / IJN: [id number] /
== END 2022-11-11 12:43 | disposition home or self-care (01) ==
LOC: OR 09:02
PROVIDERS: ATTEND Internal Medicine Cardiovascular Disease
DX: I48.3 Typical atrial flutter (principal); I48.91 Unspecified atrial fibrillation; G40.909 Epilepsy, unspecified, not intractable, without status epilepticus; Z79.899 Other long term (current) drug therapy; Z98.890 Other specified postprocedural states; Z86.73 Personal history of transient ischemic attack (TIA), and cerebral infarction without residual deficits; Z88.0 Allergy status to penicillin; Z88.2 Allergy status to sulfonamides; Z88.8 Allergy status to other drugs, medicaments and biological substances
CPT/HCPCS: 92960; J2704

== ENCOUNTER 2023-02-07 13:12 | Inpatient (IN) | payer MEDICARE ==
[~2023-02-07 13:12] MED LIST changes: +DEXAMETHASONE SOD PHOSPHATE 4 MG/ML 1 ML VIAL IV ONE; +LIDOCAINE 1% (10MG/ML) FOR IV START INTRADERMA PRN; +ONDANSETRON 4 MG/2 ML VIAL IVP ONE; +ONDANSETRON 4 MG/2 ML VIAL IVP PRN; +SODIUM CHLORIDE 0.9% 1,000 ML IV SCH; +fentaNYL (PF) 50 MCG/ML 2 ML AMP IV PRN
[2023-02-07] MEDS ORDERED: SODIUM CHLORIDE 0.9% 1,000 ML IV ONE (13:28)
[2023-02-07 13:58] LABS: Basophils # (A) 0.1 k/uL (0-0.2); Basophils % (A) 1 %; Eosinophils # (A) 0.1 k/uL (0-0.7); Eosinophils % (A) 1 %; HGB 13.4 gm/dL (11.4-16.0); Hypochromasia Slight; Lymphocytes # (A) 1.1 k/uL (1.0-4.8); Lymphocytes % (A) 14 %; MCH 28.1 pg (25.0-35.0); MCHC 31.1 g/dL (31.0-37.0); MCV 90.4 fL (80.0-100.0); Mean Platelet Volume 7.6; Monocytes # (A) 0.5 k/uL (0-1.0); Monocytes % (A) 7 %; Neutrophils # (A) 5.9 k/uL (1.3-7.7); Neutrophils % (A) 75 %; Platelet Count 307 k/uL (150-450); RBC 4.75 m/uL (3.80-5.40); RDW 15.6 % (11.5-15.5); WBC 7.9 k/uL (3.8-10.6)
[2023-02-07 14:22] LABS: African American GFR (CKD) 44 (>60 ml/min/1.73 sqM); Anion Gap 11 mmol/L; Blood Urea Nitrogen 19 mg/dL (7-17); Calcium 9.4 mg/dL (8.4-10.2); Carbon Dioxide 26 mmol/L (22-30); Chloride 104 mmol/L (98-107); Glucose 95 mg/dL (74-99); Non-African American GFR(CKD) 38 (>60 ml/min/1.73 sqM); Potassium 4.2 mmol/L (3.5-5.1); Sodium 141 mmol/L (137-145)
[2023-02-07] MEDS ORDERED: ePHEDrine 50 MG/ML 1 ML VIAL ONE (16:34)
[2023-02-07] MEDS ORDERED: LIDOCAINE 2% INJ 20 MG/ML (2 ML VIAL) ONE (16:34)
[2023-02-07] MEDS ORDERED: MIDAZOLAM 2 MG/2 ML VIAL ONE (16:34)
[2023-02-07] MEDS ORDERED: ATROPINE SULFATE 0.4 MG/ML 1 ML VIAL ONE (16:34)
[2023-02-07] MEDS ORDERED: ROCURONIUM 10 MG/ML (5 ML VIAL) IV ONE (16:34)
[2023-02-07] MEDS ORDERED: fentaNYL (PF) 50 MCG/ML 2 ML AMP ONE (16:34)
[2023-02-07] MEDS ORDERED: HEPARIN SODIUM,PORCINE 5,000 UNIT/ML 1 ML VIAL ONE (16:34)
[2023-02-07] MEDS ORDERED: NEOSTIGMINE 1 MG/ML 10 ML VIAL ONE (16:34)
[2023-02-07] MEDS ORDERED: GLYCOPYRROLATE 0.2 MG/ML 2 ML VIAL ONE (16:34)
[2023-02-07] MEDS ORDERED: SUCCINYLCHOLINE CHLORIDE 200 MG/10 ML VIAL IV ONE (16:34)
[2023-02-07] MEDS ORDERED: PROPOFOL 10 MG/ML 20 ML VIAL IV ONE (16:34)
[2023-02-07] MEDS ORDERED: PHENYLEPHRINE-0.9% NACL SYG 1,000 MCG/10 ML SYRINGE ONE (16:34)
[2023-02-07] MEDS ORDERED: LIDOCAINE 1% INJ 10MG/ML (20 ML MDV) ONE (16:48)
--- NOTE | 2023-02-07 16:48 | P.HPCAR ---
History of Present Illness This is Dr. Michaud dictating an H/P on this patient The patient was interviewed and examined IMPRESSION / ASSESSMENT: Atrial flutter, typical with a very slow ventricular response Bradycardia Normal coronary artery LVH with preserved LV systolic function PLAN: Diagnostic EP study Typical atrial flutter ablation HPI Patient complains of shortness of breath on exertion. She was quite bradycardic during her typical atrial flutter episode and therefore electrical cardioversion was withheld Denies any fever chills cough expectoration ROS: No fever chills or rigors, no cough, phlegm or expectoration, no nausea, vomiting or diarrhea, no hematuria, dysuria, no musculoskeletal complaints, no strokes or seizures, no skin lesions. EXAMINATION: 180-81 mmHg pulse rate in the 40s afebrile Breath sounds are clear no rhonchi no crackles Normal heart sounds No lower extremity edema Soft abdomen nontender No JVD REVIEW OF LABS, ECG & MEDICAL DATA Coronary arteries are normal in 2021 LVH with preserved systolic function History of CVA in 2020 Hypertension Medications include ELIQUIS, Hydralazine, Lipitor Physical Exam Vitals: Vital Signs Temp Pulse Resp BP Pulse Ox 02/07/23 13:47 99.3 F 43 L 16 188/81 97 Intake and Output 02/07/23 02/07/23 02/07/23 06:59 14:59 22:59 Intake Total 100 0 Balance 100 0 Intake: IV 100 0 Other: Weight 57.6 kg Past Medical History Past Medical History: Atrial Fibrillation, Cancer, COPD, CVA/TIA, GI Bleed, Hyp erlipidemia, Hypertension Additional Past Medical History / Comment(s): Colon cancer 2016/right colectomy- had surg. 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 Seizure-pt. unaware of this, sciatica, had cardiac workup after requiring CPR prior to surg. for fx. ankle, chronic atrial flutter, hx. of low potassium in past, hx. collagenous colitis, see Dr Michaud's H&P. urine flow issues. bruises easily History of Any Multi-Drug Resistant Organisms: None Reported Past Surgical History: Bowel Resection, Cholecystectomy, Heart Catheterization, Hernia Repair, Orthopedic Surgery, Tonsillectomy Additional Past Surgical History / Comment(s): right wrist surgery post fracture, robotic colectomy, ORIF right ankle Past Anesthesia/Blood Transfusion Reactions: Previous Problems w/ Anesthesia Additional Past Anesthesia/Blood Transfusion Reaction / Comment(s): had some sort of arrythmia requiring CPR prior to an ankle surg. in 2021 Smoking Status: Former smoker - Past Family History Mother Family Medical History: Cancer Additional Family Medical History / Comment(s): Bladder cancer. Sister(s) Family Medical History: Cancer Additional Family Medical History / Comment(s): Colon cancer. Physical Examination Vital Signs Temp Pulse Resp BP Pulse Ox 02/07/23 13:47 99.3 F 43 L 16 188/81 97 Intake and Output 02/07/23 02/07/23 02/07/23 06:59 14:59 22:59 Intake Total 100 0 Balance 100 0 Intake: IV 100 0 Other: Weight 57.6 kg Results 02/07/23 13:40 02/07/23 13:40 CBC 02/07/23 Range/Units 13:40 WBC 7.9 (3.8-10.6) k/uL RBC 4.75 (3.80-5.40) m/uL Hgb 13.4 (11.4-16.0) gm/dL Hct 43.0 (34.0-46.0) % Plt Count 307 (150-450) k/uL Comprehensive Metabolic Panel 02/07/23 Range/Units 13:40 Sodium 141 (137-145) mmol/L Potassium 4.2 (3.5-5.1) mmol/L Chloride 104 (98-107) mmol/L Carbon Dioxide 26 (22-30) mmol/L BUN 19 H (7-17) mg/dL Creatinine 1.36 H (0.52-1.04) mg/dL Glucose 95 (74-99) mg/dL Calcium 9.4 (8.4-10.2) mg/dL Current Medications Generic Name Dose Route Start Last Admin Trade Name Freq PRN Reason Stop Dose Admin Fentanyl Citrate 50 mcg 02/07/23 06:32 Fentanyl (Pf) 50 Mcg/Ml 2 Ml Amp IV 02/08/23 06:33 Q3M PRN Phase I - Pain Control Sodium Chloride 1,000 mls @ 20 mls/hr 02/07/23 06:32 Saline 0.9% IV 03/09/23 06:33 .Q24H [facility]ELINA Lactated Ringer's 1,000 mls @ 20 mls/hr 02/07/23 06:32 Lactated Ringers IV 03/09/23 06:33 .Q24H [facility]INA Lidocaine HCl 0.1 ml 02/07/23 06:32 Lidocaine 1% (10mg/Ml) For Iv Start INTRADERMA 03/09/23 06:33 PER PROTOCOL PRN IV Start Ondansetron HCl 4 mg 02/07/23 06:32 Ondansetron 4 Mg/2 Ml Vial IVP 02/08/23 06:33 ONCE PRN Phase 1 or 2 - Nausea/Vomiting Intake and Output 02/07/23 02/07/23 02/07/23 06:59 14:59 22:59 Intake Total 100 0 Balance 100 0 Intake: IV 100 0 Other: Weight 57.6 kg Patient Weight 02/08/23 06:59 Weight 57.6 kg 02/07/23 13:40 02/07/23 13:40
[2023-02-07] MEDS ORDERED: HEPARIN SODIUM (1,000 UNIT/ML) 1,000 UNIT in SODIUM CHLORIDE 0.9% 1,000 ML IRRIGATION ONE (16:52)
[2023-02-07] MEDS ORDERED: LIDOCAINE 1% INJ 10MG/ML (30 ML VIAL-PF) SQ ONE (17:06)
[2023-02-07] MEDS ORDERED: ACETAMINOPHEN TAB 325 MG TAB PO PRN (18:40)
[2023-02-07] MEDS ORDERED: ACETAMINOPHEN IV (For NPO) 1,000 MG in EMPTY BAG 1 BAG IVPB ONE (18:40)
[2023-02-07] MEDS ORDERED: PILOCARPINE 5 MG TAB PO PRN (18:42)
[2023-02-07] MEDS ORDERED: CLINDAMYCIN 150 MG CAP PO SCH (18:45)
--- NOTE | 2023-02-07 19:04 | P.EPPROC ---
- EP Procedure Note Electrophysiology Procedure Note: Preoperative Diagnosis Typical atrial flutter with stable ventricular rate of 40 beats a minute consistent with junctional escape rhythm with underlying complete heart block Hypertension Final diagnosis Typical atrial flutter with junctional escape rhythm at 40 beats a minute Status post successful ablation She remains in a junctional escape rhythm at 40 beats a minute Details Patient was brought to the EP lab in a fasting state. Written informed consent was obtained prior to the procedure. The procedure was performed under general anesthesia. The sheaths were placed in the right left femoral veins Diagnostic catheters placed, intracardiac echo cath and mapping and ablation catheter was placed Entrainment mapping was performed Typical atrial flutter with isthmus dependence was confirmed Electrical cardioversion was then performed to sinus rhythm Patient remained in the junctional escape rhythm at 42 beats a minute with underlying complete heart IV atropine was given No change in heart rate noted 3-D W mapping was performed Intracardiac echo revealed a large pouchlike isthmus RF ablation was performed Complete line of block was made without any anatomic [place] pacing was performed thereafter Bidirectional block was confirmed Isthmus conduction time greater than 170 ms Split potentials of greater than 130 ms Venous sheaths from the left groin triple Venous sheaths in the right groin left in place Decision made not to perform any [place] pacing since she had a stable ventricular escape rhythm at 40 beats a minute She has had this escape rhythm at 40 beats a minute for the last one to 2 months Plan elective permanent pacing Avoid TVP
[2023-02-07] MEDS ORDERED: SODIUM CHLORIDE 0.9% 500 ML 500 ML IV ONE ×2 (19:12)
[2023-02-07 20:06] LABS: Glucose,Whole Blood 91 mg/dL (70-110)
[2023-02-07] MEDS ORDERED: Magnesium Replacement Protocol 1 EACH MISC MISCELLANE PRN (20:24)
[2023-02-07] MEDS ORDERED: NALOXONE 0.4 MG/ML 1 ML VIAL IV PRN (20:24)
[2023-02-07] MEDS ORDERED: Potassium Replacement Protocol 1 EACH MISC MISCELLANE PRN (20:24)
[2023-02-07] MEDS: APIXABAN 5 MG TAB PO SCH (21:38)
[2023-02-07] MEDS: ATORVASTATIN 40 MG TAB PO SCH (21:38)
[2023-02-07] MEDS: amLODIPine 5 MG TAB PO SCH (21:39)
[2023-02-07] MEDS: ALPRAZolam 0.5 MG TAB PO PRN (22:29)
[2023-02-08 04:24] LABS: Basophils % (A) 0 %; Eosinophils # (A) 0.1 k/uL (0-0.7); Eosinophils % (A) 1 %; HCT 35.9 % (34.0-46.0); HGB 11.4 gm/dL (11.4-16.0); Hypochromasia Moderate; Lymphocytes # (A) 0.8 k/uL (1.0-4.8); Lymphocytes % (A) 13 %; MCH 29.2 pg (25.0-35.0); MCHC 31.8 g/dL (31.0-37.0); MCV 91.9 fL (80.0-100.0); Mean Platelet Volume 7.5; Monocytes # (A) 0.5 k/uL (0-1.0); Monocytes % (A) 7 %; Neutrophils # (A) 4.9 k/uL (1.3-7.7); Neutrophils % (A) 77 %; Platelet Count 224 k/uL (150-450); RDW 15.5 % (11.5-15.5); WBC 6.4 k/uL (3.8-10.6)
[2023-02-08] MEDS ORDERED: IPRATROPIUM-ALBUTEROL 3 ML NEB INHALATION PRN (04:47)
[2023-02-08 04:48] LABS: African American GFR (CKD) 55 (>60 ml/min/1.73 sqM); Anion Gap 8 mmol/L; Blood Urea Nitrogen 17 mg/dL (7-17); Calcium 8.5 mg/dL (8.4-10.2); Carbon Dioxide 20 mmol/L (22-30); Chloride 110 mmol/L (98-107); Glucose 86 mg/dL (74-99); Magnesium 2.2 mg/dL (1.6-2.3); Non-African American GFR(CKD) 48 (>60 ml/min/1.73 sqM); Potassium 4.3 mmol/L (3.5-5.1); Sodium 138 mmol/L (137-145)
--- NOTE | 2023-02-08 04:57 | P.CNPUL ---
History of Present Illness Consult date: 02/08/23 Requesting physician: Butch Michaud Reason for consult: other (ICU management) Chief complaint: Atrial fibrillation status post operative elective ablation History of present illness: I am seeing this patient in new consultation today 02/08/2023 in the intensive care unit following an elective cardiac ablation for paroxysmal atrial fibrillation/atrial flutter. Patient is a 72-year-old white female with past medical history significant for atrial fibrillation, congestive heart failure, hypertension, prior cardiac arrest during closed reduction of right ankle fracture, CVA/TIA, COPD, chronic kidney disease, colon cancer with previous colectomy and chemotherapy. Patient does follow Dr. Phelps in the office for management of her COPD. She utilizes combination of Trelegy inhaler, around- the-clock DuoNeb inhalations, and when necessary Ventolin HFA. Patient has been following with Dr. Michaud for management of her ongoing atrial flutter/atrial fibrillation. She was scheduled last night for an elective cardiac ablation. Following the procedure, the patient was bradycardic around 40 bpm. It appears that the patient is in a third-degree AV block on the bedside monitor. Blood pressure is actually hypertensive. Patient is currently sitting up in bed, on room air, in no acute distress. She is lying flat, and has a right groin sheath. There is a small hematoma surrounding access site. Postoperative CBC shows a WBC count of 6.4, hemoglobin down to 11.4, hematocrit 35.9, platelets 224. Most recent BMP shows a sodium 141, potassium 4.2, chloride 104, serum bicarb 26, BUN 19, creatinine 1.36, glucose 95. There is a component of acute on chronic kidney injury. Patient is anticoagulated on Eliquis. Despite the patient's relatively low heart rate, she is hemodynamically stable. There is reportedly a plan for permanent placement for insertion in the morning. Patient will remain in the intensive care unit at least overnight. Review of Systems REVIEW OF SYSTEMS: CONSTITUTIONAL: Denies any recent significant weight loss or weight gain. EYES: Denies change in vision. EARS, NOSE, MOUTH, THROAT: Denies headaches, denies sore throat. CARDIOVASCULAR: Denies chest pain, palpitations or syncopal episodes. RESPIRATORY: Denies shortness of breath, cough, congestion or hemoptysis. GASTROINTESTINAL: Denies change in appetite, abdominal pain, nausea and vomiting, or diarrhea GENITOURINARY: Denies hematuria, denies infections. MUSKULOSKELETAL: Denies pain, denies swelling. INTEGUMENTARY: Denies rash, denies eczema. NEUROLOGICAL: Denies recent memory loss, no recent seizure activity. PSYCHIATRIC: Denies anxiety, denies depression. HEMATOLOGIC/LYMPHATIC: Denies anemia, denies enlarged lymph node Past Medical History Past Medical History: Atrial Fibrillation, Cancer, COPD, CVA/TIA, Hyperlipidemia, Hypertension Additional Past Medical History / Comment(s): Colon cancer 2015/right colectomy- had surg. 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 Seizure-pt. unaware of this, sciatica, had cardiac workup after requiring CPR prior to surg. for fx. ankle, chronic atrial flutter, hx. of low potassium in past, hx. collagenous colitis, see Dr Michaud's H&P. urine flow issues. bruises easily History of Any Multi-Drug Resistant Organisms: None Reported Past Surgical History: Bowel Resection, Cholecystectomy, Heart Catheterization, Hernia Repair, Orthopedic Surgery, Tonsillectomy Additional Past Surgical History / Comment(s): right wrist surgery post fracture, robotic colectomy, ORIF right ankle Past Anesthesia/Blood Transfusion Reactions: Previous Problems w/ Anesthesia Additional Past Anesthesia/Blood Transfusion Reaction / Comment(s): had some sort of arrythmia requiring CPR prior to an ankle surg. in 2021 Past Psychological History: Anxiety, Depression Smoking Status: Former smoker, Vaper Past Alcohol Use History: Rare Additional Past Alcohol Use History / Comment(s): Quit smoking Jun 2015, smoked 45 yrs, <1PPD. Past Drug Use History: None Reported - Past Family History Mother Family Medical History: Cancer Additional Family Medical History / Comment(s): Bladder cancer. Sister(s) Family Medical History: Cancer Additional Family Medical History / Comment(s): Colon cancer. Medications and Allergies Home Medications Medication Instructions Recorded Confirmed Type PARoxetine HCL 40 mg PO DAILY 03/04/21 01/31/23 History Atorvastatin [Lipitor] 40 mg PO HS #30 tablet 03/06/21 02/07/23 Rx Apixaban [Eliquis] 5 mg PO BID 09/27/21 01/31/23 History Oxybutynin Chloride [oxyBUTYnin 10 mg PO DAILY 10/20/21 01/31/23 History chloride ER] ALPRAZolam [Xanax] 0.5 mg PO BID PRN #6 tab 10/22/21 02/07/23 Rx Albuterol Inhaler [Ventolin Hfa 2 puff PO RT-Q6H PRN 02/27/22 02/07/23 History Inhaler] Pilocarpine [Salagen] 5 mg PO TID PRN 06/01/22 02/07/23 History hydrALAZINE HCL 50 mg PO BID 06/01/22 01/31/23 History buPROPion HCL [buPROPion HCL XL] 300 mg PO DAILY 11/08/22 01/31/23 History Acetaminophen Tab [Tylenol] 325 mg PO Q4H PRN 01/05/23 02/07/23 History ARIPiprazole [Abilify] 5 mg PO HS 01/31/23 02/07/23 History Allergies Allergy/AdvReac Type Severity Reaction Status Date / Time benazepril Allergy Anaphylaxis Verified 02/07/23 13:32 Penicillins Allergy Face Verified 02/07/23 13:32 swelling sertraline [From Zoloft] Allergy Face Verified 02/07/23 13:32 swelling Sulfa (Sulfonamide Allergy Face Verified 02/07/23 13:32 Antibiotics) swelling Physical Exam Vitals: Vital Signs Temp Pulse Pulse Pulse Pulse Resp BP 02/08/23 04:00 98.6 F 40 L 42 L 22 168/78 02/08/23 03:00 40 L 21 170/79 02/08/23 02:00 40 L 20 150/75 02/08/23 01:00 41 L 17 136/100 02/08/23 00:16 41 L 19 136/100 02/08/23 00:00 98.2 F 42 L 42 L 17 158/57 02/07/23 23:30 42 L 23 153/128 02/07/23 23:00 42 L 15 172/62 02/07/23 22:30 42 L 18 165/97 02/07/23 22:26 98.9 F 43 L 18 02/07/23 22:00 42 L 32 H 143/117 02/07/23 21:30 42 L 9 L 110/46 02/07/23 21:26 98.2 F 42 L 16 02/07/23 21:00 42 L 8 L 159/72 02/07/23 20:45 42 L 24 152/79 02/07/23 20:30 43 L 14 160/81 02/07/23 20:26 98.7 F 42 L 18 02/07/23 20:15 43 L 8 L 02/07/23 20:08 25 H 02/07/23 20:00 42 L 16 02/07/23 19:52 43 L 16 02/07/23 19:37 42 L 16 02/07/23 19:22 43 L 14 02/07/23 19:07 97.6 F 43 L 14 02/07/23 18:44 98.7 F 42 L 18 02/07/23 13:47 99.3 F 43 L 16 BP BP Pulse Ox 02/08/23 04:00 92 L 02/08/23 03:00 92 L 02/08/23 02:00 94 L 02/08/23 01:00 93 L 02/08/23 00:16 96 02/08/23 00:00 93 L 02/07/23 23:30 94 L 02/07/23 23:00 97 02/07/23 22:30 97 02/07/23 22:26 172/62 96 02/07/23 22:00 96 02/07/23 21:30 96 02/07/23 21:26 143/117 96 02/07/23 21:00 96 02/07/23 20:45 95 02/07/23 20:30 96 02/07/23 20:26 152/79 96 02/07/23 20:15 95 02/07/23 20:08 96 02/07/23 20:00 02/07/23 19:52 155/62 99 02/07/23 19:37 158/60 99 02/07/23 19:22 155/69 99 02/07/23 19:07 126/92 93 L 02/07/23 18:44 152/79 97 02/07/23 13:47 188/81 97 Intake and Output 02/07/23 02/07/23 02/08/23 14:59 22:59 06:59 Intake Total 100 2140 120 Output Total 0 0 Balance 100 2140 120 Intake: IV 100 1080 Intake, IV Titration 60 120 Amount Sodium Chloride 0.9% 1, 60 120 000 ml @ 20 mls/hr IV . Q24H [facility] Rx#:[id number] Oral 1000 Output: Urine 0 0 Other: Weight 57.6 kg 57.6 kg GENERAL EXAM: Alert, 72-year-old white female appearing stated age , comfortable in no apparent distress. HEAD: Normocephalic and atraumatic EYES: Normal reaction of pupils, equal size. NOSE: Clear with pink turbinates. THROAT: No erythema or exudates. NECK: No masses, no JVD. CHEST: No chest wall deformity. LUNGS: Equal air entry with no crackles, wheeze, rhonchi or dullness. On room air. No conversational dyspnea or accessory muscle use.. CVS: S1 and S2 normal with no audible murmur, regular rhythm. No extra heart sounds. Heart rate around 40 bpm. ABDOMEN: No hepatosplenomegaly, active bowel sounds, no guarding or rigidity. SPINE: No scoliosis or deformity SKIN: No rashes CENTRAL NERVOUS SYSTEM: No focal deficits, tone is normal in all 4 extremities. EXTREMITIES: There is no peripheral edema, clubbing, or cyanosis. There is a right groin sheath, with small hematoma. Peripheral pulses are intact. Results - Laboratory Findings CBC and BMP: 02/08/23 03:53 02/07/23 13:40 Abnormal lab findings: Abnormal Labs 02/07/23 02/07/23 02/08/23 13:40 13:40 03:53 RDW 15.6 H Lymphocytes # 0.8 L BUN 19 H Creatinine 1.36 H Assessment and Plan Assessment: Paroxysmal atrial fibrillation/atrial flutter, status post cardiac ablation resulting in third degree AV block. There is a tentative plan for permanent pacemaker insertion later this morning. Small right groin hematoma, there was a 2 g drop in patient's hemoglobin from yesterday Acute on chronic kidney injury, creatinine 1.36 Chronic obstructive pulmonary disease, stable History of diastolic congestive heart failure. Most recent echocardiogram shows a preserved ejection fraction of 50-55%. Essential hypertension History of prior cardiac arrest during closed reduction of right ankle fracture back in September, History of CVA/TIA History of colon cancer status post colectomy and chemotherapy Plan: Patient's medications, labs reviewed Tentative plan for permanent pacemaker insertion later this morning Blood pressure is stable Right groin hematoma has been manually reduced Trend hemoglobin Patient has been started on a combination of Symbicort inhaler and when necessary DuoNeb's Patient will be monitored in the intensive care unit I have personally seen and examined the patient, performed the documentation and the assessment and plan as written. Number of minutes spent on the visit:20 Time with Patient: Greater than 30
[2023-02-08] MEDS: SYMBICORT 160-4.5 MCG INHALER INHALATION SCH ×2 (08:05→20:56)
[2023-02-08] MEDS ORDERED: CLINDAMYCIN 150 MG CAP PO SCH (09:00)
[2023-02-08] MEDS: PARoxetine 20 MG TAB PO SCH (09:07)
[2023-02-08] MEDS: amLODIPine 5 MG TAB PO SCH ×2 (09:08→20:14)
[2023-02-08] MEDS: buPROPion XL 300 MG TAB.ER.24H PO SCH (09:09)
[2023-02-08] MEDS: APIXABAN 5 MG TAB PO SCH ×2 (11:47→20:13)
[2023-02-08] MEDS: ATORVASTATIN 40 MG TAB PO SCH (20:14)
[2023-02-08] MEDS: ALPRAZolam 0.5 MG TAB PO PRN (23:03)
[2023-02-09 04:58] LABS: Basophils % (A) 0 %; Eosinophils # (A) 0.1 k/uL (0-0.7); Eosinophils % (A) 2 %; HCT 35.6 % (34.0-46.0); HGB 11.5 gm/dL (11.4-16.0); Hypochromasia Slight; Lymphocytes # (A) 0.8 k/uL (1.0-4.8); Lymphocytes % (A) 11 %; MCH 29.4 pg (25.0-35.0); MCHC 32.2 g/dL (31.0-37.0); MCV 91.1 fL (80.0-100.0); Mean Platelet Volume 7.4; Monocytes # (A) 0.6 k/uL (0-1.0); Monocytes % (A) 9 %; Neutrophils # (A) 5.4 k/uL (1.3-7.7); Neutrophils % (A) 75 %; Platelet Count 236 k/uL (150-450); RBC 3.91 m/uL (3.80-5.40); RDW 15.5 % (11.5-15.5); WBC 7.2 k/uL (3.8-10.6)
[2023-02-09 05:14] LABS: African American GFR (CKD) 62 (>60 ml/min/1.73 sqM); Anion Gap 7 mmol/L; Blood Urea Nitrogen 19 mg/dL (7-17); Calcium 8.9 mg/dL (8.4-10.2); Carbon Dioxide 25 mmol/L (22-30); Chloride 104 mmol/L (98-107); Glucose 102 mg/dL (74-99); Non-African American GFR(CKD) 54 (>60 ml/min/1.73 sqM); Potassium 4.2 mmol/L (3.5-5.1); Sodium 136 mmol/L (137-145)
[2023-02-09] MEDS: SYMBICORT 160-4.5 MCG INHALER INHALATION SCH ×2 (07:43→21:00)
--- NOTE | 2023-02-09 08:32 | P.PN ---
Subjective Patient was resting comfortably in bed We removed the 8-[place] sheath from the right groin and applied a Vascade device There was a little bit of oozing Therefore FemoStop was applied I saw her in the evening there was minimal oozing or bleeding She is resting comfortably in bed no chest discomfort She remains in the third degree heart block with junctional escape rhythm which is stable at 42 beats a minute Blood pressure is normal to high and has started her on amlodipine On examination her heart sounds are normal Breath sounds are clear Impression Typical atrial flutter with slow ventricular response at 40 beats a minute, consistent with significant AV node disease Status post successful ablation Underlying third degree heart block with junctional escape rhythm of 42 beats a minute as expected, no AV node blocking drugs, no triggering factors Gradually progressive degenerative AV node disease without any precipitating factors Hypertension Suggest Continue anticoagulation I discussed the importance of proceeding with permanent pacing and explained the reasons for doing so We'll proceed with a dual-chamber pacemaker tomorrow Objective - Vital Signs Vital signs: Vital Signs Temp 98.2 F 02/09/23 04:00 Pulse 44 L 02/09/23 07:00 Resp 38 H 02/09/23 07:00 BP 132/52 02/09/23 07:00 Pulse Ox 99 02/09/23 07:43 FiO2 Intake & Output 02/08/23 02/09/23 02/09/23 18:59 06:59 18:59 Intake Total 780 0 Output Total 700 400 0 Balance 80 -400 0 Weight 61 kg 60 kg Intake: Intake, IV Titration 180 Amount Sodium Chloride 0.9% 1, 180 000 ml @ 20 mls/hr IV . Q24H [facility] Rx#:[id number] Oral 600 0 Output: Urine 700 400 0 Other: Voiding Method Indwelling Catheter # Voids 1 - Labs CBC & Chem 7: 02/09/23 04:24 02/09/23 04:24 Labs: Abnormal Lab Results - Last 24 Hours (Table) 02/09/23 02/09/23 Range/Units 04:24 04:24 Lymphocytes # 0.8 L (1.0-4.8) k/uL Sodium 136 L (137-145) mmol/L BUN 19 H (7-17) mg/dL Glucose 102 H (74-99) mg/dL
--- NOTE | 2023-02-09 08:34 | P.PN ---
Subjective Patient is resting comfortably in bed. She is sleeping No orthopnea Lungs are clear Blood pressure normal Heart rates remained in the 40s She is in third degree heart block Blood pressure 132/52 mmHg pulse rate in the 40s Plan Prep left pectoral area Avoid any EKG patches there Continue amlodipine for blood pressure control Continue atorvastatin Preop pacemaker orders entered for tomorrow In [place] after midnight for procedure tomorrow Objective - Vital Signs Vital signs: Vital Signs Temp 98.2 F 02/09/23 04:00 Pulse 44 L 02/09/23 07:00 Resp 38 H 02/09/23 07:00 BP 132/52 02/09/23 07:00 Pulse Ox 99 02/09/23 07:43 FiO2 Intake & Output 02/08/23 02/09/23 02/09/23 18:59 06:59 18:59 Intake Total 780 0 Output Total 700 400 0 Balance 80 -400 0 Weight 61 kg 60 kg Intake: Intake, IV Titration 180 Amount Sodium Chloride 0.9% 1, 180 000 ml @ 20 mls/hr IV . Q24H [facility] Rx#:[id number] Oral 600 0 Output: Urine 700 400 0 Other: Voiding Method Indwelling Catheter # Voids 1 - Labs CBC & Chem 7: 02/09/23 04:24 02/09/23 04:24 Labs: Abnormal Lab Results - Last 24 Hours (Table) 02/09/23 02/09/23 Range/Units 04:24 04:24 Lymphocytes # 0.8 L (1.0-4.8) k/uL Sodium 136 L (137-145) mmol/L BUN 19 H (7-17) mg/dL Glucose 102 H (74-99) mg/dL
[2023-02-09] MEDS: buPROPion XL 300 MG TAB.ER.24H PO SCH (08:36)
[2023-02-09] MEDS: PARoxetine 20 MG TAB PO SCH (08:36)
[2023-02-09] MEDS: APIXABAN 5 MG TAB PO SCH ×2 (08:36→20:19)
[2023-02-09] MEDS: amLODIPine 5 MG TAB PO SCH ×2 (08:36→20:19)
--- NOTE | 2023-02-09 10:51 | P.PN ---
Subjective Progress Note Date: 02/09/23 I am seeing this patient in new consultation today 02/08/2023 in the intensive care unit following an elective cardiac ablation for paroxysmal atrial fibrillation/atrial flutter. Patient is a 72-year-old white female with past medical history significant for atrial fibrillation, congestive heart failure, hypertension, prior cardiac arrest during closed reduction of right ankle fracture, CVA/TIA, COPD, chronic kidney disease, colon cancer with previous colectomy and chemotherapy. Patient does follow Dr. Phelps in the office for management of her COPD. She utilizes combination of Trelegy inhaler, a [id number] DuoNeb inhalations, and when necessary Ventolin HFA. Patient has been following with Dr. Michaud for management of her ongoing atrial flutter/atrial fibrillation. She was scheduled last night for an elective cardiac ablation. Following the procedure, the patient was bradycardic around 40 bpm. It appears that the patient is in a third-degree AV block on the bedside monitor. Blood pressure is actually hypertensive. Patient is currently sitting up in bed, on room air, in no acute distress. She is lying flat, and has a right groin sheath. There is a small hematoma surrounding access site. Postoperative CBC shows a WBC count of 6.4, hemoglobin down to 11.4, hematocrit 35.9, platelets 224. Most recent BMP shows a sodium 141, potassium 4.2, chloride 104, serum bicarb 26, BUN 19, creatinine 1.36, glucose 95. There is a component of acute on chronic kidney injury. Patient is anticoagulated on Eliquis. Despite the patient's relatively low heart rate, she is hemodynami charlotte stable. There is reportedly a plan for permanent placement for insertion in the morning. Patient will remain in the intensive care unit at least overnight. The patient is seen today 02/09/2023 in follow-up in the intensive care unit. She is currently sitting up in bed. Awake and alert in no acute distress. Maintaining good O2 saturations in the 90s on room air. She remains bradycardic in third-degree heart block. Plan is for permanent pacemaker implantation tomorrow. White count 7.2. Hemoglobin 11.5. Platelets 236. Sodium 136. Potassium 4.2. Bicarb 25. BUN 19. Creatinine 1.03. Glucose 102. Antibiotics remains on Symbicort, DuoNeb inhalations, anticoagulated with Eliquis. Normal saline at 50 MLS per hour. Objective - Vital Signs Vital signs: Vital Signs Temp 97.9 F 02/09/23 08:00 Pulse 47 L 02/09/23 10:00 Resp 17 02/09/23 10:00 BP 127/62 02/09/23 10:00 Pulse Ox 96 02/09/23 08:00 FiO2 Intake & Output 02/08/23 02/09/23 02/09/23 18:59 06:59 18:59 Intake Total 780 0 500 Output Total 700 400 400 Balance 80 -400 100 Weight 61 kg 60 kg Intake: Intake, IV Titration 180 Amount Sodium Chloride 0.9% 1, 180 000 ml @ 20 mls/hr IV . Q24H MELINA Rx#:[id number] Oral 600 0 500 Output: Urine 700 400 400 Other: Voiding Method Indwelling Catheter Toilet # Voids 1 - Exam GENERAL EXAM: Alert, 72-year-old female on room air, appearing stated age, comfortable in no apparent distress. HEAD: Normocephalic and atraumatic EYES: Normal reaction of pupils, equal size. NOSE: Clear with pink turbinates. THROAT: No erythema or exudates. NECK: No masses, no JVD. CHEST: No chest wall deformity. LUNGS: Equal air entry with no crackles, wheeze, rhonchi or dullness. No c onversational dyspnea or accessory muscle use. CVS: S1 and S2 normal with no audible murmur. No extra heart sounds. Heart rate remains in the 40s. ABDOMEN: No hepatosplenomegaly, active bowel sounds, no guarding or rigidity. SPINE: No scoliosis or deformity SKIN: No rashes CENTRAL NERVOUS SYSTEM: No focal deficits, tone is normal in all 4 extremities. EXTREMITIES: There is no peripheral edema, clubbing, or cyanosis. Right groin with small hematoma. Peripheral pulses are intact. - Labs CBC & Chem 7: 02/09/23 04:24 02/09/23 04:24 Labs: Abnormal Lab Results - Last 24 Hours (Table) 02/09/23 02/09/23 Range/Units 04:24 04:24 Lymphocytes # 0.8 L (1.0-4.8) k/uL Sodium 136 L (137-145) mmol/L BUN 19 H (7-17) mg/dL Glucose 102 H (74-99) mg/dL Assessment and Plan Assessment: Paroxysmal atrial fibrillation/atrial flutter, status post cardiac ablation resulting in third degree AV block. There is a plan for permanent pacemaker insertion 02/10/2023. Small right groin hematoma, there was a 2 g drop in patient's hemoglobin from yesterday, stable at 11.5 Acute on chronic kidney injury, covered, creatinine 1.03 Chronic obstructive pulmonary disease, stable History of diastolic congestive heart failure. Most recent echocardiogram shows a preserved ejection fraction of 50-55%. Essential hypertension History of prior cardiac arrest during closed reduction of right ankle fracture back in September, History of CVA/TIA History of colon cancer status post colectomy and chemotherapy Plan: The patient was seen and evaluated Currently stable and on room air Remains in complete heart block Plan is for permanent pacemaker tomorrow We will continue to follow I have personally seen and examined the patient, performed the documentation and the assessment and plan as written. Number of minutes spent on the visit: 10.
[2023-02-09] MEDS: SODIUM CHLORIDE 0.9% 1,000 ML IV SCH ×2 (11:47→20:17)
[2023-02-09] MEDS: ATORVASTATIN 40 MG TAB PO SCH (20:19)
[2023-02-09] MEDS: ALPRAZolam 0.5 MG TAB PO PRN (20:19)
[2023-02-10] MEDS: SODIUM CHLORIDE 0.9% 1,000 ML IV SCH ×2 (03:43→08:59)
[2023-02-10 06:07] LABS: Basophils % (A) 1 %; Eosinophils # (A) 0.1 k/uL (0-0.7); Eosinophils % (A) 2 %; HCT 37.2 % (34.0-46.0); HGB 11.3 gm/dL (11.4-16.0); Hypochromasia Slight; Lymphocytes % (A) 17 %; MCH 28.3 pg (25.0-35.0); MCHC 30.4 g/dL (31.0-37.0); MCV 93.2 fL (80.0-100.0); Mean Platelet Volume 7.8; Monocytes # (A) 0.5 k/uL (0-1.0); Monocytes % (A) 9 %; Neutrophils # (A) 3.8 k/uL (1.3-7.7); Neutrophils % (A) 68 %; Platelet Count 223 k/uL (150-450); RDW 15.7 % (11.5-15.5); WBC 5.6 k/uL (3.8-10.6)
[2023-02-10 06:32] LABS: African American GFR (CKD) 75 (>60 ml/min/1.73 sqM); Anion Gap 4 mmol/L; Blood Urea Nitrogen 21 mg/dL (7-17); Calcium 8.7 mg/dL (8.4-10.2); Carbon Dioxide 29 mmol/L (22-30); Chloride 104 mmol/L (98-107); Glucose 95 mg/dL (74-99); Non-African American GFR(CKD) 65 (>60 ml/min/1.73 sqM); Potassium 4.1 mmol/L (3.5-5.1); Sodium 137 mmol/L (137-145)
[2023-02-10] MEDS ORDERED: CLINDAMYCIN 900 MG in DEXTROSE 5% IN WATER 50 ML IVPB PRN ×2 (07:00)
[2023-02-10] MEDS ORDERED: CLINDAMYCIN 600 MG in SODIUM CHLORIDE 0.9% 250 ML IRRIGATION PRN (07:00)
[2023-02-10] MEDS: SYMBICORT 160-4.5 MCG INHALER INHALATION SCH ×2 (08:07→20:29)
[2023-02-10] MEDS: PARoxetine 20 MG TAB PO SCH (09:04)
[2023-02-10] MEDS: amLODIPine 5 MG TAB PO SCH ×2 (09:04→20:56)
[2023-02-10] MEDS: buPROPion XL 300 MG TAB.ER.24H PO SCH (09:04)
[2023-02-10] MEDS: APIXABAN 5 MG TAB PO SCH ×2 (09:04→20:56)
--- NOTE | 2023-02-10 10:38 | P.PN ---
Subjective Progress Note Date: 02/10/23 I am seeing this patient in new consultation today 02/08/2023 in the intensive care unit following an elective cardiac ablation for paroxysmal atrial fibrillation/atrial flutter. Patient is a 72-year-old white female with past medical history significant for atrial fibrillation, congestive heart failure, hypertension, prior cardiac arrest during closed reduction of right ankle fracture, CVA/TIA, COPD, chronic kidney disease, colon cancer with previous colectomy and chemotherapy. Patient does follow Dr. Phelps in the office for management of her COPD. She utilizes combination of Trelegy inhaler, a [id number] DuoNeb inhalations, and when necessary Ventolin HFA. Patient has been following with Dr. Michaud for management of her ongoing atrial flutter/atrial fibrillation. She was scheduled last night for an elective cardiac ablation. Following the procedure, the patient was bradycardic around 40 bpm. It appears that the patient is in a third-degree AV block on the bedside monitor. Blood pressure is actually hypertensive. Patient is currently sitting up in bed, on room air, in no acute distress. She is lying flat, and has a right groin sheath. There is a small hematoma surrounding access site. Postoperative CBC shows a WBC count of 6.4, hemoglobin down to 11.4, hematocrit 35.9, platelets 224. Most recent BMP shows a sodium 141, potassium 4.2, chloride 104, serum bicarb 26, BUN 19, creatinine 1.36, glucose 95. There is a component of acute on chronic kidney injury. Patient is anticoagulated on Eliquis. Despite the patient's relatively low heart rate, she is hemodynami charlotte stable. There is reportedly a plan for permanent placement for insertion in the morning. Patient will remain in the intensive care unit at least overnight. The patient is seen today 02/09/2023 in follow-up in the intensive care unit. She is currently sitting up in bed. Awake and alert in no acute distress. Maintaining good O2 saturations in the 90s on room air. She remains bradycardic in third-degree heart block. Plan is for permanent pacemaker implantation tomorrow. White count 7.2. Hemoglobin 11.5. Platelets 236. Sodium 136. Potassium 4.2. Bicarb 25. BUN 19. Creatinine 1.03. Glucose 102. Antibiotics remains on Symbicort, DuoNeb inhalations, anticoagulated with Eliquis. Normal saline at 50 MLS per hour. The patient is seen today 02/10/2023 in follow-up in the intensive care unit. She remains awake and alert in no acute distress. Up in a chair. Maintaining good O2 saturation in the 90s on room air. No IV fluids. Plan is for permanent pacemaker implantation today. She remains in complete heart block. White count 5.6. Hemoglobin 11.3. Platelets 223. Sodium 137. Potassium 4.1. Bicarb 29. BUN 21. Creatinine 0.88. Glucose 95. She remains on Symbicort and DuoNeb inhalations. Objective - Vital Signs Vital signs: Vital Signs Temp 98.4 F 02/10/23 08:00 Pulse 40 L 02/10/23 09:00 Resp 22 02/10/23 09:00 BP 120/54 02/10/23 09:00 Pulse Ox 97 02/10/23 09:00 FiO2 Intake & Output 02/09/23 02/10/23 02/10/23 18:59 06:59 18:59 Intake Total 1000 500 Output Total 800 700 Balance 200 500 -700 Weight 59 kg Intake: Oral 1000 500 Output: Urine 800 700 Other: Voiding Method Toilet Toilet # Voids 0 1 - Exam GENERAL EXAM: Alert, pleasant 72-year-old female on room air, up in a chair comfortable in no apparent distress. HEAD: Normocephalic and atraumatic EYES: Normal reaction of pupils, equal size. NOSE: Clear with pink turbinates. THROAT: No erythema or exudates. NECK: No masses, no JVD. CHEST: No chest wall deformity. LUNGS: Equal air entry with no crackles, wheeze, rhonchi or dullness. No conversational dyspnea or accessory muscle use. CVS: S1 and S2 normal with no audible murmur. No extra heart sounds. Heart rate remains in the 40s. ABDOMEN: No hepatosplenomegaly, active bowel sounds, no guarding or rigidity. SPINE: No scoliosis or deformity SKIN: No rashes CENTRAL NERVOUS SYSTEM: No focal deficits, tone is normal in all 4 extremities. EXTREMITIES: There is no peripheral edema, clubbing, or cyanosis. Right groin with small hematoma. Peripheral pulses are intact. - Labs CBC & Chem 7: 02/10/23 05:35 02/10/23 05:35 Labs: Abnormal Lab Results - Last 24 Hours (Table) 02/10/23 02/10/23 Range/Units 05:35 05:35 Hgb 11.3 L (11.4-16.0) gm/dL MCHC 30.4 L (31.0-37.0) g/dL RDW 15.7 H (11.5-15.5) % BUN 21 H (7-17) mg/dL Assessment and Plan Assessment: Paroxysmal atrial fibrillation/atrial flutter, status post cardiac ablation resulting in third degree AV block. There is a plan for permanent pacemaker ins ertion 02/10/2023. Small right groin hematoma, there was a 2 g drop in patient's hemoglobin from y esterday, stable at 11.3 Acute on chronic kidney injury, covered, creatinine 0.88 Chronic obstructive pulmonary disease, stable History of diastolic congestive heart failure. Most recent echocardiogram shows a preserved ejection fraction of 50-55%. Essential hypertension History of prior cardiac arrest during closed reduction of right ankle fracture back in September, History of CVA/TIA History of colon cancer status post colectomy and chemotherapy Plan: The patient was seen and evaluated Currently stable and on room air Remains on Symbicort, DuoNeb inhalations Remains in complete heart block Plan is for permanent pacemaker today Probable transfer out of the ICU later today We will continue to follow I have personally seen and examined the patient, performed the documentation and the assessment and plan as written. Number of minutes spent on the visit: 10.
[2023-02-10] MEDS ORDERED: SODIUM CHLORIDE 0.9% 1,000 ML IV ONE (15:50)
[2023-02-10] MEDS ORDERED: VANCOMYCIN 1,000 MG in SODIUM CHLORIDE 0.9% 250 ML IVPB ONE (16:00)
[2023-02-10] MEDS ORDERED: fentaNYL (PF) 50 MCG/ML 2 ML AMP ONE (16:02)
[2023-02-10] MEDS ORDERED: MIDAZOLAM 2 MG/2 ML VIAL ONE (16:02)
[2023-02-10] MEDS ORDERED: LIDOCAINE 1% INJ 10MG/ML (20 ML MDV) SQ ONE (16:38)
--- NOTE | 2023-02-10 18:01 | P.EPPROC ---
- EP Procedure Note Electrophysiology Procedure Note: Diagnosis Symptomatic bradycardia secondary to third-degree heart block with a junctional escape rhythm at 40 beats a minute, unprovoked, no triggering factors Procedure Dual-chamber pacemaker implantation with conduction system pacing (left bundle pacing) Left upper extremity venogram Details Patient was brought to the EP lab in a fasting state. Written informed consent was obtained prior to the procedure. Conscious sedation provided by K[employer]ELGU[employer] REGENERATOR OPERATOR. IV antibiotics administered. Local anesthesia administered. A 4 cm incision made in the pectoral area. Subfascial pocket made. Venous accesses obtained Venous sheaths placed. Leads placed in the right heart. 2 sets of pacing cables were used; one for backup temporary pacing and the other for assessment of current of injury and signal analysis. A 52 cm atrial pacing lead was first positioned in the RV apex for temporary pacing during mapping and conduction system pacing Thresholds were interrogated and backup high output pacing was provided This atrial lead was then removed from the right ventricle and later positioned in the right atrial appendage and the permanent lead A deflected sheath was prepped. A coronary sinus decapolar catheter was placed within this sheath. The catheter along with the sheath was then passed into the right heart, the catheter was prolapsed across the tricuspid valve, into the right ventricle and then further into the right ventricular outflow tract across the pulmonic valve into the pulmonary artery. This sheath was slid over this decapolar catheter into the RVOT. Thereafter the catheter last sheath assembly was withdrawn from the RVOT along the septum to the mid septal area. The sheath was appropriately to to map the right ventricular aspect of the septum. The decapolar catheter was withdrawn, the sheath flushed again and the screw-in pacing lead placed within the sheath. Further detailed unipolar pace-mapping of the septum was performed and once the appropriate based morphology was obtained on lead V1, the lead was screwed into the septum. The lead was screwed in 4-5 returns at a time while monitoring the current of injury, the pacing impedance changes and the paced QRS morphology. The stimulus to peak of V6 QRS was measured at each step. Once a QR or rSR pattern of paced QRS in lead V1 was obtained, a left bundle signal was sought. Impedance was measured and thresholds were measured. An impedance drop of 100-200 ohms but above 550 ohms was targeted along with an unchanged vector of the current of injury signal. The final positioning was based on the QRS morphology in lead V1 and a short stimulus to peak of the V6 QRS of less than 90 ms. The sheath was withdrawn, stability of the pacing lead deep in the septum was confirmed on QUIJANO and VIK views and the sheath was slipped and an adequate heel was provided for the lead. Unipolar and bipolar electrogram morphology obtained Atrial lead positioned in the right atrial appendage. Sensing, thresholds and impedances measured following positioning and securing the lead in the right atrial appendage Left bundle lead parameters: Medtronic model #3830, 69 cm in length. Fixed curve sheath used R waves 8.8 mV, pacing impedance 704 ohms, pacing threshold 1 V at 0.4 ms Atrial lead parameters : P waves 2 mV, pacing impedance 589 ohms and pacing threshold 0.5 V at 0.4 ms. 10 V test negative Device sql server bi developer: Medtronic ROS, dual-chamber pacemaker Dual-chamber pacemaker device connected to the leads and placed in the subfascial pocket Patient tolerated the procedure well without acute complications Pacemaker programming Unipolar mode, right bundle branch block paced morphology, QRS width 133 ms, stim to V6 equals 88 ms Bipolar mode: Right bundle branch block morphology, 138 ms, stim-V6 equals 89 ms Device programmed to DDD 50-120 Paced A-V interval 180 ms
[2023-02-10] MEDS ORDERED: ACETAMINOPHEN TAB 325 MG TAB PO PRN (18:02)
[2023-02-10] MEDS ORDERED: ACETAMINOPHEN IV (For NPO) 1,000 MG in EMPTY BAG 1 BAG IVPB ONE (18:30)
[2023-02-10] MEDS: ATORVASTATIN 40 MG TAB PO SCH (20:56)
[2023-02-10] MEDS ORDERED: CLINDAMYCIN 900 MG in DEXTROSE 5% IN WATER 50 ML IVPB SCH ×2 (22:00)
[2023-02-11 07:14] VITALS: PULSE 54; RESP 16
--- NOTE | 2023-02-11 07:16 | P.DS ---
Providers Date of admission: 02/08/23 16:39 Attending physician: Butch Michaud Consults: 02/07/23 18:46 Consult Physician Routine Consulting Provider: William Ramirez Consult Reason/Comments: ICU care Do you want consulting provider notified?: Yes, Notify in am Primary care physician: [facility] Course: Patient is doing well. No chest discomfort dizziness lightheadedness Some discomfort in the left pectoral area Vitals are stable blood pressures been normal heart rates in the normal range She's pacing left bundle as well as pacing the atrium 25% Chest x-ray is normal no pneumothorax leads in good position Pacemaker interrogation is normal Impression Atrial flutter with a junctional escape rhythm at 40 beats a minute Severe AV node disease with third degree AV block In sinus rhythm junctional escape rhythm at 40 beats a minute Status post dual-chamber pacemaker implant with conduction system pacing, left bundle pacing Hypertension Plan Discharge home today Stop hydralazine Start amlodipine 10 mg by mouth daily Continue atorvastatin Continue ELIQUIS Discussed with Dr. Jacobson She will see us in the pacemaker clinic in a week's time in follow-up with Dr. Jacobson thereafter Plan - Discharge Summary Discharge Rx Participant: Yes New Discharge Prescriptions: New amLODIPine 10 mg PO DAILY #90 tab Discontinued hydrALAZINE HCL 50 mg PO BID No Action PARoxetine HCL 40 mg PO DAILY Atorvastatin [Lipitor] 40 mg PO HS #30 tablet Oxybutynin Chloride [oxyBUTYnin chloride ER] 10 mg PO DAILY Pilocarpine [Salagen] 5 mg PO TID PRN PRN Reason: Dry Mouth Apixaban [Eliquis] 5 mg PO BID ALPRAZolam [Xanax] 0.5 mg PO BID PRN #6 tab PRN Reason: Anxiety Albuterol Inhaler [Ventolin Hfa Inhaler] 2 puff PO RT-Q6H PRN PRN Reason: Shortness Of Breath buPROPion HCL [buPROPion HCL XL] 300 mg PO DAILY Acetaminophen Tab [Tylenol] 325 mg PO Q4H PRN PRN Reason: Pain ARIPiprazole [Abilify] 5 mg PO HS Discharge Medication List PARoxetine HCL 40 mg PO DAILY 03/04/21 [History] Atorvastatin [Lipitor] 40 mg PO HS #30 tablet 03/06/21 [Rx] Apixaban [Eliquis] 5 mg PO BID 09/27/21 [History] Oxybutynin Chloride [oxyBUTYnin chloride ER] 10 mg PO DAILY 10/20/21 [History] ALPRAZolam [Xanax] 0.5 mg PO BID PRN #6 tab 10/22/21 [Rx] Albuterol Inhaler [Ventolin Hfa Inhaler] 2 puff PO RT-Q6H PRN 02/27/22 [History] Pilocarpine [Salagen] 5 mg PO TID PRN 06/01/22 [History] buPROPion HCL [buPROPion HCL XL] 300 mg PO DAILY 11/08/22 [History] Acetaminophen Tab [Tylenol] 325 mg PO Q4H PRN 01/05/23 [History] ARIPiprazole [Abilify] 5 mg PO HS 01/31/23 [History] amLODIPine 10 mg PO DAILY #90 tab 02/10/23 [Rx] Follow up Appointment(s)/Referral(s): Janusz Key MD [STAFF PHYSICIAN] - 1 Week (Device clinic follow-up in 1 week Follow-up with Dr. Jacobson in 3-4 weeks) Activity/Diet/Wound Care/Special Instructions: PATIENT EDUCATION MATERIAL Instructions following a heart rhythm device implant. 1. Keep dressing DRY for 5 DAYS. You may cover the area with Saran or Cling Wrap, prior to a shower. 2. The dressing will be removed in the Device Clinic at [facility]. Absorbable sutures were used to close the wound. 3. Avoid raising the left arm above the shoulder level. 4 week restriction 4. Avoid arm movements, like backscratching, rubbing the head, or pulling on a cord. 4 weeks restriction 5. Gentle range of motion movements of the shoulder, closest to the incision should be performed to avoid a frozen shoulder. (Pendulum exercises of the shoulder) 6. The opposite arm may be used freely. 7. Avoid driving for 7 days. 8. Avoid activities such as golfing, swimming, weed whacking, lifting more than 10 pounds weight, bowling, gymnastics and weight training/lifting. (6 weeks restriction) 9. Activities such as wood chopping with an axe, pull-ups in the gymnasium, power lifting, arc-welding, being close to home induction cooktops will always be a problem. 10. Arm sling is only a reminder not to raise the arm above the head. You do not need to keep the arm completely immobilized. Your free to move the arm and use it and for normal activities. In case of any problems, please call [facility], Elza Woo, @ [phone], Attention: Device Clinic Device clinic follow-up in 5 days Follow-up with primary napping machine operator in 2-3 months Stop hydralazine Start amlodipine 10 mg by mouth daily Continue ELIQUIS Discharge Disposition: HOME SELF-CARE
[2023-02-11] MEDS: SYMBICORT 160-4.5 MCG INHALER INHALATION SCH (07:56)
--- NOTE | 2023-02-11 08:11 | XR ---
EXAMINATION TYPE: XR chest 2V DATE OF EXAM: 02/11/2023 COMPARISON: 06/01/2022 INDICATION: Lead placement check TECHNIQUE: Frontal and lateral views of the chest are obtained. FINDINGS: The heart size is normal. The pulmonary vasculature is normal. Small right pleural effusion is present.. Pacemaker overlies left chest. No pneumothorax is evident. The ventricular lead is in the midportion of the heart. The atrial lead is in normal orientation. IMPRESSION: 1. Small right pleural effusion.
[2023-02-11 08:55] VITALS: BP 138/56; TEMP 98.4
[2023-02-11] MEDS: APIXABAN 5 MG TAB PO SCH (09:00)
[2023-02-11] MEDS: amLODIPine 5 MG TAB PO SCH (09:00)
[2023-02-11] MEDS: PARoxetine 20 MG TAB PO SCH (09:00)
[2023-02-11] MEDS: buPROPion XL 300 MG TAB.ER.24H PO SCH (09:00)
--- NOTE | 2023-02-11 10:01 | P.PN ---
Subjective Progress Note Date: 02/11/23 I am seeing this patient in new consultation today 02/08/2023 in the intensive care unit following an elective cardiac ablation for paroxysmal atrial fibrillation/atrial flutter. Patient is a 72-year-old white female with past medical history significant for atrial fibrillation, congestive heart failure, hypertension, prior cardiac arrest during closed reduction of right ankle fracture, CVA/TIA, COPD, chronic kidney disease, colon cancer with previous colectomy and chemotherapy. Patient does follow Dr. Phelps in the office for management of her COPD. She utilizes combination of Trelegy inhaler, a [id number] DuoNeb inhalations, and when necessary Ventolin HFA. Patient has been following with Dr. Michaud for management of her ongoing atrial flutter/atrial fibrillation. She was scheduled last night for an elective cardiac ablation. Following the procedure, the patient was bradycardic around 40 bpm. It appears that the patient is in a third-degree AV block on the bedside monitor. Blood pressure is actually hypertensive. Patient is currently sitting up in bed, on room air, in no acute distress. She is lying flat, and has a right groin sheath. There is a small hematoma surrounding access site. Postoperative CBC shows a WBC count of 6.4, hemoglobin down to 11.4, hematocrit 35.9, platelets 224. Most recent BMP shows a sodium 141, potassium 4.2, chloride 104, serum bicarb 26, BUN 19, creatinine 1.36, glucose 95. There is a component of acute on chronic kidney injury. Patient is anticoagulated on Eliquis. Despite the patient's relatively low heart rate, she is hemodynami char[place] stable. There is reportedly a plan for permanent placement for insertion in the morning. Patient will remain in the intensive care unit at least overnight. The patient is seen today 02/09/2023 in follow-up in the intensive care unit. She is currently sitting up in bed. Awake and alert in no acute distress. Maintaining good O2 saturations in the 90s on room air. She remains bradycardic in third-degree heart block. Plan is for permanent pacemaker implantation tomorrow. White count 7.2. Hemoglobin 11.5. Platelets 236. Sodium 136. Potassium 4.2. Bicarb 25. BUN 19. Creatinine 1.03. Glucose 102. Antibiotics remains on Symbicort, DuoNeb inhalations, anticoagulated with Eliquis. Normal saline at 50 MLS per hour. The patient is seen today 02/10/2023 in follow-up in the intensive care unit. She remains awake and alert in no acute distress. Up in a chair. Maintaining good O2 saturation in the 90s on room air. No IV fluids. Plan is for permanent pacemaker implantation today. She remains in complete heart block. White count 5.6. Hemoglobin 11.3. Platelets 223. Sodium 137. Potassium 4.1. Bicarb 29. BUN 21. Creatinine 0.88. Glucose 95. She remains on Symbicort and DuoNeb inhalations. The patient is seen today 02/11/2023 in follow-up in the intensive care unit. She is awake and alert in no acute distress. Maintaining good O2 saturations in the 90s on room air. She's afebrile. Hemodynamically stable. She did undergo permanent pacemaker implantation yesterday. She remains on DuoNeb inhalations, Symbicort. Anticoagulated with Eliquis. Objective - Vital Signs Vital signs: Vital Signs Temp 98.4 F 02/11/23 08:05 Pulse 54 L 02/11/23 08:05 Resp 16 02/11/23 08:05 BP 138/56 02/11/23 08:05 Pulse Ox 91 L 02/11/23 08:05 FiO2 Intake & Output 02/10/23 02/11/23 02/11/23 18:59 06:59 18:59 Intake Total 66 260 560 Output Total 700 600 0 Balance -634 -340 560 Intake: IV 56 Intake, IV Titration 10 260 Amount ACETAMINOPHEN IV (For NPO 100 ) 1,000 mg In Empty Bag 1 bag @ 400 mls/hr IVPB ONCE ONE Rx#:[id number] Clindamycin 900 mg In 100 Dextrose 5% in Water 50 ml @ 50 mls/hr IVPB Q6H [facility] Rx#:[id number] Sodium Chloride 0.9% 1, 10 60 000 ml @ 0 mls/hr IV .STK -MED ONE Rx#:[id number] Oral 560 Output: Urine 700 600 0 Other: Voiding Method Toilet Bedside Commode Toilet Diaper # Voids 0 1 1 # Bowel Movements 1 - Exam GENERAL EXAM: Alert, 72-year-old female, on room air, comfortable in no apparent distress. HEAD: Normocephalic and atraumatic EYES: Normal reaction of pupils, equal size. NOSE: Clear with pink turbinates. THROAT: No erythema or exudates. NECK: No masses, no JVD. CHEST: No chest wall deformity. Dressing to the left subclavian pacemaker site clean and dry LUNGS: Equal air entry with no crackles, wheeze, rhonchi or dullness. No conversational dyspnea or accessory muscle use. CVS: S1 and S2 normal with no audible murmur. No extra heart sounds. Heart rate remains in the 40s. ABDOMEN: No hepatosplenomegaly, active bowel sounds, no guarding or rigidity. SPINE: No scoliosis or deformity SKIN: No rashes CENTRAL NERVOUS SYSTEM: No focal deficits, tone is normal in all 4 extremities. EXTREMITIES: Left upper extremity in a sling. There is no peripheral edema, clubbing, or cyanosis. Peripheral pulses are intact. - Labs CBC & Chem 7: 02/10/23 05:35 02/10/23 05:35 Assessment and Plan Assessment: Paroxysmal atrial fibrillation/atrial flutter, status post cardiac ablation resulting in third degree AV block. Permanent pacemaker insertion 02/10/2023. Small right groin hematoma on 02/08/2023, reduced manually and recovered Acute on chronic kidney injury, covered, creatinine 0.88 Chronic obstructive pulmonary disease, stable History of diastolic congestive heart failure. Most recent echocardiogram shows a preserved ejection fraction of 50-55%. Essential hypertension History of prior cardiac arrest during closed reduction of right ankle fracture back in September, History of CVA/TIA History of colon cancer status post colectomy and chemotherapy Plan: The patient was seen and evaluated Currently stable and on room air Home once cleared by cardiology I have personally seen and examined the patient, performed the documentation and the assessment and plan as written. Number of minutes spent on the visit: 10.
[2023-02-11 10:26] VITALS: BMI 23.0
--- NOTE | 2023-02-14 13:05 | CDI ---
Documentation Clarification Form Date: 02/14/2023 12:51:47 PM From: Concepcion Morgan Phone: Admit Date: 02/08/2023 04:39:00 PM Patient Name: Yanni Morales Visit Number: [id number] Discharge Date: 02/11/2023 11:59:00 AM ATTENTION: The Clinical Documentation Specialists (CDI) and [facility] Coding Staff appreciate your assistance in clarifying documentation. Please respond to the clarification below the line at the bottom and electronically sign. The CDI & [facility] Coding staff will review the response and follow-up if needed. Please note: Queries are made part of the Legal Health Record. If you have any questions, please contact the author of this message via ITS. Dr. Butch Michaud Unspecified CKD is documented Consult Note and Progress Notes. Additional clarification regarding the stage of CKD is requested. History/Risk Factors: 72yo F, Atrial [id number] AV block, s/p PPM, HTN SELINA on CKD, CDHF Clinical Indicators: Non- GFR: 02/07 38 02/08 48 02/09 54 02/10 65 GFR: 02/07 44 02/08 55 02/09 62 02/10 75 Blood Urea Nitrogen: 02/07 19 02/08 17 02/09 19 02/10 21 Creatinine: 02/07 1.36 02/08 1.14 02/09 1.03 02/10 .88 Treatment: The patient was seen and evaluated. Currently stable and on room air. Home once cleared by cardiology Please clarify the stage of the CKD, if known: [ ] CKD Stage 2 (GFR 60-89) [ ] CKD Stage 3a (GFR 45-59) [ ] CKD Stage 3b (GFR 30-44) [ ] Other, please specify [ XX ] Unable to determine (Template Last revised: July 2020) Unable to determine Contact PCP and nephrology MTDD
== END 2023-02-11 11:59 | disposition home or self-care (01) | DRG 243 ==
LOC: CATHEP 13:12 → 2SICU 18:30 → CATHEP 02-08 16:39 → 2SICU 02-08 16:39
PROVIDERS: ADMIT Internal Medicine Clinical Cardiac Electrophysiology; ATTEND Internal Medicine Clinical Cardiac Electrophysiology
PROC: 5A2204Z Restoration of Cardiac Rhythm, Single (ICD-10-PCS; 2023-02-07)
PROC: 02K83ZZ Map Conduction Mechanism, Percutaneous Approach (ICD-10-PCS; 2023-02-07)
PROC: 02583ZZ Destruction of Conduction Mechanism, Percutaneous Approach (ICD-10-PCS; principal; 2023-02-07 14:25)
PROC: 02H63JZ Insertion of Pacemaker Lead into Right Atrium, Percutaneous Approach (ICD-10-PCS; 2023-02-10)
PROC: 02HK3JZ Insertion of Pacemaker Lead into Right Ventricle, Percutaneous Approach (ICD-10-PCS; 2023-02-10)
PROC: 0JH606Z Insertion of Pacemaker, Dual Chamber into Chest Subcutaneous Tissue and Fascia, Open Approach (ICD-10-PCS; 2023-02-10 15:00)
DX: I48.3 Typical atrial flutter (principal); I13.0 Hypertensive heart and chronic kidney disease with heart failure and stage 1 through stage 4 chronic kidney disease, or unspecified chronic kidney disease; I50.32 Chronic diastolic (congestive) heart failure; N17.9 Acute kidney failure, unspecified; R56.9 Unspecified convulsions; J44.9 Chronic obstructive pulmonary disease, unspecified; I44.2 Atrioventricular block, complete; R00.1 Bradycardia, unspecified; S30.1XXA Contusion of abdominal wall, initial encounter; I48.0 Paroxysmal atrial fibrillation; E78.5 Hyperlipidemia, unspecified; R39.198 Other difficulties with micturition; Z86.73 Personal history of transient ischemic attack (TIA), and cerebral infarction without residual deficits; Z85.038 Personal history of other malignant neoplasm of large intestine; Z92.21 Personal history of antineoplastic chemotherapy; Z90.49 Acquired absence of other specified parts of digestive tract; Z87.19 Personal history of other diseases of the digestive system; Z87.891 Personal history of nicotine dependence; Z79.899 Other long term (current) drug therapy; Z79.01 Long term (current) use of anticoagulants; Z88.0 Allergy status to penicillin; Z88.2 Allergy status to sulfonamides; Z88.8 Allergy status to other drugs, medicaments and biological substances; Z86.74 Personal history of sudden cardiac arrest; N18.9 Chronic kidney disease, unspecified
CPT/HCPCS: 33206; 33225; 71046; 80048; 83735; 85025; 86850; 86900; 86901; 93653; 93662; 94640

== ENCOUNTER 2023-02-23 22:10 | Emergency (ER) | payer MEDICARE ==
[2023-02-23 22:21] VITALS: RESP 18
--- NOTE | 2023-02-23 22:35 | ED ---
General Adult HPI - General Chief complaint: Fall Stated complaint: Fall Time Seen by Provider: 02/23/23 22:20 Source: patient Mode of arrival: wheelchair Limitations: no limitations - History of Present Illness Initial comments: Dictation was produced using Vontu dictation software. please excuse any grammatical, word or spelling errors. Chief Complaint: 72-year-old female presents with request for computed tomography scan of the brain History of Present Illness: 72-year-old female presents emergency Department requesting computed tomography scan of the brain. Patient suffered a fall. She resides locally however she was traveling in [place]. They arrived to their destination however she was walking when she missed a step causing her to fall for. She went to emergency department at [place]. He did not have a CT scanner. They requested that she be transferred to another hospital for CT imaging. She refused and instead decided to drive back to scan her brain here. The event occurred approximately 2 PM today. Patient not lose any consciousness. She also suffered a distal radius fracture that states was reduced under procedural sedation. The ROS documented in this emergency department record has been reviewed and confirmed by me. Those systems with pertinent positive or negative responses have been documented in the HPI. All other systems are other negative and/or noncontributory. - Related Data Home Medications Medication Instructions Recorded Confirmed PARoxetine HCL 40 mg PO DAILY 03/04/21 01/31/23 Apixaban [Eliquis] 5 mg PO BID 09/27/21 01/31/23 Oxybutynin Chloride [oxyBUTYnin 10 mg PO DAILY 10/20/21 01/31/23 chloride ER] Albuterol Inhaler [Ventolin Hfa 2 puff PO RT-Q6H PRN 02/27/22 02/07/23 Inhaler] Pilocarpine [Salagen] 5 mg PO TID PRN 06/01/22 02/07/23 buPROPion HCL [buPROPion HCL XL] 300 mg PO DAILY 11/08/22 01/31/23 Acetaminophen Tab [Tylenol] 325 mg PO Q4H PRN 01/05/23 02/07/23 ARIPiprazole [Abilify] 5 mg PO HS 01/31/23 02/07/23 Previous Rx's Medication Instructions Recorded Atorvastatin [Lipitor] 40 mg PO HS #30 tablet 03/06/21 ALPRAZolam [Xanax] 0.5 mg PO BID PRN #6 tab 10/22/21 amLODIPine 10 mg PO DAILY #90 tab 02/10/23 Allergies Allergy/AdvReac Type Severity Reaction Status Date / Time benazepril Allergy Anaphylaxis Verified 02/07/23 13:32 Penicillins Allergy Face Verified 02/07/23 13:32 swelling sertraline [From Zoloft] Allergy Face Verified 02/07/23 13:32 swelling Sulfa (Sulfonamide Allergy Face Verified 02/07/23 13:32 Antibiotics) swelling Review of Systems ROS Statement: Those systems with pertinent positive or pertinent negative responses have been documented in the HPI. ROS Other: All systems not noted in ROS Statement are negative. Past Medical History Past Medical History: Atrial Fibrillation, Cancer, COPD, CVA/TIA, Hyperlipidemia, Hypertension Additional Past Medical History / Comment(s): Colon cancer 2015/right colectomy- had surg. 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 Seizure-pt. unaware of this, sciatica, had cardiac workup after requiring CPR prior to surg. for fx. ankle, chronic atrial flutter, hx. of low potassium in past, hx. collagenous colitis, see Dr Michaud's H&P. urine flow issues. bruises easily History of Any Multi-Drug Resistant Organisms: None Reported Past Surgical History: Bowel Resection, Cholecystectomy, Heart Catheterization, Hernia Repair, Orthopedic Surgery, Tonsillectomy Additional Past Surgical History / Comment(s): right wrist surgery post fracture, robotic colectomy, ORIF right ankle Past Anesthesia/Blood Transfusion Reactions: Previous Problems w/ Anesthesia Additional Past Anesthesia/Blood Transfusion Reaction / Comment(s): had some sort of arrythmia requiring CPR prior to an ankle surg. in 2021 Past Psychological History: Anxiety, Depression Smoking Status: Former smoker, Vaper Past Alcohol Use History: Rare Past Drug Use History: None Reported - Past Family History Mother Family Medical History: Cancer Additional Family Medical History / Comment(s): Bladder cancer. Sister(s) Family Medical History: Cancer Additional Family Medical History / Comment(s): Colon cancer. General Exam - General Exam Comments Initial Comments: PHYSICAL EXAM: General Impression: Alert and oriented x3, not in acute distress, splint to the left wrist HEENT: Bruising to the left forehead and periorbital area. No tarsal plate sparing, extra-ocular movements intact, pupils equal and reactive to light bilaterally, mucous membranes moist. Cardiovascular: Heart regular rate and rhythm Chest: Able to complete full sentences, no retractions, no tachypnea Abdomen: abdomen soft, non-tender, non-distended, no organomegaly Musculoskeletal: Pulses present and equal in all extremities, no peripheral edema Motor: no focal deficits noted Neurological: CN II-XII grossly intact, no focal motor or sensory deficits noted Skin: Intact with no visualized rashes Psych: Normal affect and mood Limitations: no limitations Course Vital Signs 02/23/23 22:15 Temperature 98.3 F Pulse Rate 80 Respiratory 18 Rate Blood Pressure 123/71 O2 Sat by Pulse 95 Oximetry Medical Decision Making - Medical Decision Making Was pt. sent in by a medical professional or institution ([facility], [employer], urgent care, hospital, or fpc...) When possible be specific @ -No Did you speak to anyone other than the patient for history (EMS, parent, family, police, friend...)? What history was obtained from this source @ -No Did you review nursing and triage notes (agree or disagree)? Why? @ -I reviewed and agree with nursing and triage notes Were old charts reviewed (outside hosp., previous admission, EMS record, old EKG, old radiological studies, urgent care reports/EKG's, fpc records)? Report findings @ -No old charts were reviewed Differential Diagnosis (chest pain, altered mental status, abdominal pain women, abdominal pain men, vaginal bleeding, musculoskeletal, weakness, fever, dyspnea, syncope, headache, dizziness, GI bleed, back pain, seizure, CVA, palpatations, mental health)? @ -not applicable EKG interpreted by me (3pts min.). @ -None done X-rays interpreted by me (1pt min.). @ -None done CT interpreted by me (1pt min.). @ -Computed tomography scan brain and C-spine shows no acute processes U/S interpreted by me (1pt. min.). @ -None done What testing was considered but not performed or refused? (CT, X-rays, U/S, labs)? Why? @ -None What meds were considered but not given or refused? Why? @ -None Did you discuss the management of the patient with other professionals (professionals i.e. [facility]ccracken, [employer], lab, RT, psych nurse, hospice social worker, furniture sprayer, teacher, radiation officer, nurse case management)? Give summary @ -No Was smoking cessation discussed for >3mins.? @ -No Was critical care preformed (if so, how long)? @ -No Were there social determinants of health that impacted care today? How? (Homelessness, low income, unemployed, alcoholism, drug addiction, transportati on, low edu. Level, literacy, decrease access to med. care, shelter, rehab)? @ -No Was there de-escalation of care discussed even if they declined (Discuss DNR or withdrawal of care, Hospice)? DNR status @ -No What co-morbidities impacted this encounter? (DM, HTN, Smoking, COPD, CAD, Cancer, CVA, ARF, Chemo, Hep., AIDS, mental health diagnosis, sleep apnea, morbid obesity)? @ -None Was patient admitted / discharged? Hospital course, mention meds given and route, prescriptions, significant lab abnormalities, going to OR and other pertinent info. @ -72-year-old female presents to the emergency department for head injury. Patient is well-appearing. Vital signs stable. CT imaging is unremarkable. Patient discharged. Undiagnosed new problem with uncertain prognosis? @ -No Drug Therapy requiring intensive monitoring for toxicity (Heparin, Nitro, Insulin, Cardizem)? @ -No Were any procedures done? @ -No Diagnosis/symptom? Acute, or Chronic, or Acute on Chronic? Uncomplicated (without systemic symptoms) or Complicated (systemic symptoms)? @ -Close head injury Side effects of treatment? @ -No Exacerbation, Progression, or Severe Exacerbation? @ -No Poses a threat to life or bodily function? How? (Chest pain, USA, MD, pneumonia, PE, COPD, DKA, ARF, appy, cholecystitis, CVA, Diverticulitis, Homicidal, Suicidal, threat to staff... and all critical care pts) @ -No Disposition Clinical Impression: Closed head injury Disposition: HOME SELF-CARE Condition: Good Instructions (If sedation given, give patient instructions): Fall Prevention for Older Adults (ED) Is patient prescribed a controlled substance at d/c from ED?: No Referrals: Davis Ty DO [Primary Care Provider] - 1-2 days Time of Disposition: 23:27
--- NOTE | 2023-02-23 22:59 | CT ---
EXAMINATION TYPE: CT brain cspine wo con DATE OF EXAM: 02/23/2023 COMPARISON: Prior trauma CT June 01, 2022 HISTORY: fall on blood thinners CT DLP: 1337.7 mGycm. Automated Exposure Control for Dose Reduction was Utilized. TECHNIQUE: CT scan of the head and cervical spine are performed without contrast. FINDINGS: There is no acute intracranial hemorrhage or midline shift identified. Mild to moderate v entricular and sulcal prominence redemonstrated. Moderate low-attenuation the deep and periventricula r white matter redemonstrated. There is moderate to large size acute left frontal scalp hematoma cent ered axial image 24. There is degenerative change left temporomandibular joint redemonstrated. Bilate ral aphakia is redemonstrated. The visualized sinuses remain clear. Cervical spine is visualized in its entirety from C1 through upper thoracic levels and redemonstrates levoconvex scoliotic curvature or positioning centered in the thoracic spine without evidence of acu te fracture or dislocation. There is slight grade 1 anterolisthesis of C2 on C3, C3 on C4, and C4 on C5 redemonstrated. Prevertebral soft tissue appears within normal limits. The C1-C2 articulation is within normal limits on the coronal images. Vertebral body heights are preserved. There is mild to moderate spurring and disc space narrowing at C5-C6 and C6-C7 levels. Axial images show moderate to a dvanced emphysematous change in the upper lungs. There is partial visualization of pacemaker wires. T here is moderate calcified plaque bilateral carotid bulb level redemonstrated. Smaller sized thyroid gland is redemonstrated. IMPRESSION: 1. There is no acute fracture or dislocation evident in the cervical spine. 2. No acute intracranial hemorrhage or midline shift is seen. There is new moderate to large sized ac martin left frontal scalp hematoma noted.
[2023-02-24 00:08] VITALS: BP 135/71; PULSE 68; TEMP 98.1
== END 2023-02-24 | disposition home or self-care (01) ==
LOC: EC 22:10
DX: S00.03XA Contusion of scalp, initial encounter (principal); E78.5 Hyperlipidemia, unspecified; I48.91 Unspecified atrial fibrillation; J44.9 Chronic obstructive pulmonary disease, unspecified; I10 Essential (primary) hypertension; Z86.73 Personal history of transient ischemic attack (TIA), and cerebral infarction without residual deficits; F32.A Depression, unspecified; F41.9 Anxiety disorder, unspecified; F17.290 Nicotine dependence, other tobacco product, uncomplicated; Z88.0 Allergy status to penicillin; Z88.2 Allergy status to sulfonamides; Z88.8 Allergy status to other drugs, medicaments and biological substances; Z79.01 Long term (current) use of anticoagulants; Z79.899 Other long term (current) drug therapy; W10.9XXA Fall (on) (from) unspecified stairs and steps, initial encounter; Y93.01 Activity, walking, marching and hiking
CPT/HCPCS: 70450; 72125; 99284

== ENCOUNTER → 2023-02-24 | Outpatient (CLI) | payer MEDICARE ==
--- NOTE | 2023-02-24 17:24 | US ---
EXAMINATION TYPE: US venous doppler duplex LE BI DATE OF EXAM: 02/24/2023 5:16 PM COMPARISON: Left lower extremity venous ultrasound 11/05/2021 CLINICAL INDICATION: Female, 72 years old with history of M25.571 PAIN R LEG M79.662 PAIN LEFT LEG; SIDE PERFORMED: Bilateral TECHNIQUE: The lower extremity deep venous system is examined utilizing real time linear array sonog irving with graded compression, doppler sonography and color-flow sonography. VESSELS IMAGED: Common Femoral Vein Deep Femoral Vein Greater Saphenous Vein * Femoral Vein Popliteal Vein Small Saphenous Vein * Proximal Calf Veins (* superficial vessels) Grayscale, color doppler, spectral doppler imaging performed of the deep veins of the lower extremit ies. There is normal flow, compressibility, vascular waveforms. Right Leg: Negative for DVT Left Leg: Negative for DVT There is a heterogenous collection within the right thigh in the femoral region measuring 4.5 x 1.9 x 3.6 cm without internal color flow. IMPRESSION: 1. No deep venous thrombosis of the bilateral lower extremities. 2. Heterogenous fluid collection within the right thigh femoral region measuring up to 4.5 cm withou t internal color flow favored represent a hematoma. Correlate clinically.
== END | disposition home or self-care (01) ==
LOC: RADUSWWP 16:55
PROVIDERS: ATTEND Orthopaedic Surgery
DX: M25.571 Pain in right ankle and joints of right foot (principal); M79.662 Pain in left lower leg; R60.9 Edema, unspecified
CPT/HCPCS: 93970

== ENCOUNTER 2023-03-10 21:28 | Emergency (ER) | payer MEDICARE ==
[2023-03-10 21:44] VITALS: RESP 18
[2023-03-10 23:13] LABS: Basophils % (A) 1 %; Eosinophils # (A) 0.3 k/uL (0-0.7); Eosinophils % (A) 4 %; HGB 11.7 gm/dL (11.4-16.0); Hypochromasia Slight; Lymphocytes % (A) 16 %; MCHC 31.7 g/dL (31.0-37.0); MCV 91.6 fL (80.0-100.0); Mean Platelet Volume 7.7; Monocytes # (A) 0.5 k/uL (0-1.0); Monocytes % (A) 8 %; Neutrophils # (A) 4.5 k/uL (1.3-7.7); Neutrophils % (A) 68 %; Platelet Count 257 k/uL (150-450); RBC 4.04 m/uL (3.80-5.40); RDW 15.9 % (11.5-15.5); WBC 6.6 k/uL (3.8-10.6)
--- NOTE | 2023-03-10 23:21 | US ---
EXAM: US Duplex Bilateral Lower Extremities Veins CLINICAL HISTORY: ITS.REASON US Reason: LE swelling TECHNIQUE: Real-time duplex ultrasound scan of the bilateral lower extremity veins integrating B-mode two-dimensional vascular structure, Doppler spectral analysis, color flow Doppler imaging and compression. COMPARISON: No relevant prior studies available. FINDINGS: Right deep veins: Unremarkable. No DVT in the right common femoral, femoral, proximal deep femoral or popliteal veins. The veins demonstrate normal color flow, are normally compressible, with normal phasic flow and/or augmentation response. The interrogated calf veins are patent. Right superficial veins: Unremarkable. No thrombus in the saphenofemoral junction. Left deep veins: Unremarkable. No DVT in the left common femoral, femoral, proximal deep femoral or popliteal veins. The veins demonstrate normal color flow, are normally compressible, with normal phasic flow and/or augmentation response. The interrogated calf veins are patent. Left superficial veins: Unremarkable. No thrombus in the saphenofemoral junction. Soft tissues: A subcutaneous ovoid hypoechoic area in the right inguinal region is less complex when compared to the previous examination, now measuring 1.2 x 3.6 x 2.8 cm from 1.9 x 4.5 x 3.6 cm. No popliteal cyst. IMPRESSION: 1. No evidence for deep vein thrombosis involving the bilateral lower extremities. 2. The previously noted presumed subcutaneous hematoma at the right inguinal region is smaller in size and less complex in appearance.
[2023-03-10 23:35] LABS: ALT 19 U/L (4-34); AST 30 U/L (14-36); African American GFR (CKD) 53 (>60 ml/min/1.73 sqM); Albumin 3.9 g/dL (3.5-5.0); Alkaline Phosphatase 119 U/L (38-126); Anion Gap 7 mmol/L; Blood Urea Nitrogen 30 mg/dL (7-17); Calcium 9.3 mg/dL (8.4-10.2); Carbon Dioxide 25 mmol/L (22-30); Chloride 107 mmol/L (98-107); Glucose 93 mg/dL (74-99); Non-African American GFR(CKD) 46 (>60 ml/min/1.73 sqM); Potassium 4.9 mmol/L (3.5-5.1); Sodium 139 mmol/L (137-145); Total Bilirubin 0.4 mg/dL (0.2-1.3); Total Protein 6.9 g/dL (6.3-8.2)
[2023-03-10 23:42] LABS: NT-Pro-B-Type Natriuretic Pept 980 pg/mL
--- NOTE | 2023-03-10 23:58 | XR ---
EXAM: XR Chest, 2 Views CLINICAL HISTORY: concern for CHF TECHNIQUE: Frontal and lateral views of the chest. COMPARISON: Chest 2 views dated 02/11/2023 FINDINGS: Lungs: The lungs are slightly hyperexpanded, stable. Interval improvement in the pulmonary edema pattern noted previously without radiographic evidence for florid CHF. Pleural space: Unremarkable. No pneumothorax. No large pleural effusion. Heart: Stable appearance. Mediastinum: Unremarkable. No significant abnormality identified. The trachea is midline. Bones/joints: Unremarkable. Tubes, lines and devices: The cardiac silhouette is stable in size with a dual lead pacer. IMPRESSION: The lungs are slightly hyperexpanded, stable. Interval improvement in the pulmonary edema pattern noted previously without radiographic evidence for florid CHF. The previously noted posterior pleural effusions have resolved.
--- NOTE | 2023-03-11 00:06 | ED ---
Extremity Problem HPI - General Chief complaint: Extremity Problem,Nontraumatic Stated complaint: Swollen leg Time Seen by Provider: 03/10/23 21:52 Source: patient Mode of arrival: ambulatory Limitations: no limitations - History of Present Illness Initial comments: 72-year-old female presenting with chief complaint of bilateral lower extremity swelling. Patient states that yesterday she noticed that her leg was also weeping. She is having no pain in the lower extremities. No chest pain or difficulty breathing. No recent injury or trauma. No fevers or chills. No nausea or vomiting. - Related Data Home Medications Medication Instructions Recorded Confirmed PARoxetine HCL 40 mg PO DAILY 03/04/21 01/31/23 Apixaban [Eliquis] 5 mg PO BID 09/27/21 01/31/23 Oxybutynin Chloride [oxyBUTYnin 10 mg PO DAILY 10/20/21 01/31/23 chloride ER] Albuterol Inhaler [Ventolin Hfa 2 puff PO RT-Q6H PRN 02/27/22 02/07/23 Inhaler] Pilocarpine [Salagen] 5 mg PO TID PRN 06/01/22 02/07/23 buPROPion HCL [buPROPion HCL XL] 300 mg PO DAILY 11/08/22 01/31/23 Acetaminophen Tab [Tylenol] 325 mg PO Q4H PRN 01/05/23 02/07/23 ARIPiprazole [Abilify] 5 mg PO HS 01/31/23 02/07/23 Previous Rx's Medication Instructions Recorded Atorvastatin [Lipitor] 40 mg PO HS #30 tablet 03/06/21 ALPRAZolam [Xanax] 0.5 mg PO BID PRN #6 tab 10/22/21 amLODIPine 10 mg PO DAILY #90 tab 02/10/23 Allergies Allergy/AdvReac Type Severity Reaction Status Date / Time benazepril Allergy Anaphylaxis Verified 03/10/23 21:44 Penicillins Allergy Face Verified 03/10/23 21:44 swelling sertraline [From Zoloft] Allergy Face Verified 03/10/23 21:44 swelling Sulfa (Sulfonamide Allergy Face Verified 03/10/23 21:44 Antibiotics) swelling Review of Systems ROS Statement: Those systems with pertinent positive or pertinent negative responses have been documented in the HPI. ROS Other: All systems not noted in ROS Statement are negative. Past Medical History Past Medical History: Atrial Fibrillation, Cancer, COPD, CVA/TIA, Hyperlipidemia, Hypertension Additional Past Medical History / Comment(s): Colon cancer 2016/right colectomy- had surg. 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 Seizure-pt. unaware of this, sciatica, had cardiac workup after requiring CPR prior to surg. for fx. ankle, chronic atrial flutter, hx. of low potassium in past, hx. collagenous colitis, see Dr Michaud's H&P. urine flow issues. bruises easily History of Any Multi-Drug Resistant Organisms: None Reported Past Surgical History: Bowel Resection, Cholecystectomy, Heart Catheterization, Hernia Repair, Orthopedic Surgery, Tonsillectomy Additional Past Surgical History / Comment(s): right wrist surgery post fracture, robotic colectomy, ORIF right ankle Past Anesthesia/Blood Transfusion Reactions: Previous Problems w/ Anesthesia Additional Past Anesthesia/Blood Transfusion Reaction / Comment(s): had some sort of arrythmia requiring CPR prior to an ankle surg. in 2021 Past Psychological History: Anxiety, Depression Smoking Status: Former smoker, Vaper Past Alcohol Use History: Rare Past Drug Use History: None Reported - Past Family History Mother Family Medical History: Cancer Additional Family Medical History / Comment(s): Bladder cancer. Sister(s) Family Medical History: Cancer Additional Family Medical History / Comment(s): Colon cancer. General Exam Limitations: no limitations General appearance: alert, in no apparent distress Head exam: Present: atraumatic, normocephalic, normal inspection Eye exam: Present: normal appearance, EOMI Neck exam: Present: normal inspection, full ROM Respiratory exam: Present: normal lung sounds bilaterally. Absent: respiratory distress, wheezes, rales, rhonchi, stridor Cardiovascular Exam: Present: regular rate, normal rhythm, normal heart sounds. Absent: systolic murmur, diastolic murmur, rubs, gallop, clicks Extremities exam: Present: normal capillary refill, pedal edema Neurological exam: Present: alert, oriented X3, CN II-XII intact Psychiatric exam: Present: normal affect, normal mood Skin exam: Present: warm, dry, intact, normal color. Absent: rash Course Vital Signs 03/10/23 03/11/23 21:37 00:18 Temperature 98.3 F 97.6 F Pulse Rate 81 74 Respiratory 18 18 Rate Blood Pressure 132/70 136/80 O2 Sat by Pulse 95 94 L Oximetry Medical Decision Making - Medical Decision Making Was pt. sent in by a medical professional or institution (GRAYSON Mccracken, RV BODY MECHANIC, urgent care, hospital, or senior living...) When possible be specific @ -No Did you speak to anyone other than the patient for history (EMS, parent, family, police, friend...)? What history was obtained from this source @ -No Did you review nursing and triage notes (agree or disagree)? Why? @ -I reviewed and agree with nursing and triage notes Were old charts reviewed (outside hosp., previous admission, EMS record, old EKG, old radiological studies, urgent care reports/EKG's, senior living records)? Report findings @ -No old charts were reviewed Differential Diagnosis (chest pain, altered mental status, abdominal pain women, abdominal pain men, vaginal bleeding, weakness, fever, dyspnea, syncope, headache, dizziness, GI bleed, back pain, seizure, CVA, palpatations, mental health, musculoskeletal)? @ -Differential includes [place] dependent edema, CHF, DVT, this is not an all inclusive list EKG interpreted by me (3pts min.). @ -Electronic ventricular pacemaker. Ventricular rate 67. CT interval 203. QRS 124. QT 458. QTC 472. There is some new ST depression in lead V6, otherwise unchanged from previous X-rays interpreted by me (1pt min.). @ -The lungs are slightly hyperexpanded, stable. Interval improvement of the pulmonary edema pattern noted previously without radiographic evidence for florid CHF. The previously noted posterior pleural effusions have resolved. CT interpreted by me (1pt min.). @ -None done U/S interpreted by me (1pt. min.). @ -Ultrasound negative for DVT What testing was considered but not performed or refused? (CT, X-rays, U/S, labs)? Why? @ -None What meds were considered but not given or refused? Why? @ -None Did you discuss the management of the patient with other professionals (professionals i.e. GRAYSON Mccracken, RV BODY MECHANIC, lab, RT, psych nurse, medical social worker, operational risk manager, teacher, campus safety officer, case maker)? Give summary @ -No Was smoking cessation discussed for >3mins.? @ -No Was critical care preformed (if so, how long)? @ -No Were there social determinants of health that impacted care today? How? (Homelessness, low income, unemployed, alcoholism, drug addiction, transportation, low edu. Level, literacy, decrease access to med. care, mcc, rehab)? @ -No Was there de-escalation of care discussed even if they declined (Discuss DNR or withdrawal of care, Hospice)? DNR status @ -No What co-morbidities impacted this encounter? (DM, HTN, Smoking, COPD, CAD, Cancer, CVA, ARF, Chemo, Hep., AIDS, mental health diagnosis, sleep apnea, morbid obesity)? @ -None Was patient admitted / discharged? Hospital course, mention meds given and route, prescriptions, significant lab abnormalities, going to OR and other pertinent info. @ -72-year-old female presenting with chief complaint of lower extremity swelling. No chest pain or difficulty breathing. Physical examination is conducted. Lab work shows no leukocytosis or anemia. Mildly elevated BUN and creatinine which appears consistent with baseline. Negative troponin. BNP is WNL at 980. Ultrasound negative for DVT and chest x-ray negative for overt CHF. On reassessment patient is resting comfortably. She is educated on today's findings on supportive management of gravity dependent edema home. Follow-up with PCP. Report back to ER with any new or worsening symptoms. Discussed return parameters and answered all questions. Patient conveyed verbal understanding and agreed to the plan. I discussed this case in detail with my attending Dr. Clancy Undiagnosed new problem with uncertain prognosis? @ -No Drug Therapy requiring intensive monitoring for toxicity (Heparin, Nitro, Insulin, Cardizem)? @ -No Were any procedures done? @ -No Diagnosis/symptom? @ -[place] dependent edema Acute, or Chronic, or Acute on Chronic? @ -Acute Uncomplicated (without systemic symptoms) or Complicated (systemic symptoms)? @ -Uncomplicated Side effects of treatment? @ -No Exacerbation, Progression, or Severe Exacerbation? @ -No Poses a threat to life or bodily function? How? (Chest pain, [place], [place], pneumonia, PE, COPD, DKA, ARF, appy, cholecystitis, CVA, Diverticulitis, Homicidal, Suicidal, threat to staff... and all critical care pts) @ -No - Lab Data Result diagrams: 03/10/23 22:26 03/10/23 22:26 Lab Results 03/10/23 03/10/23 03/10/23 Range/Units 22:26 22:26 22:26 WBC 6.6 (3.8-10.6) k/uL RBC 4.04 (3.80-5.40) m/uL Hgb 11.7 (11.4-16.0) gm/dL Hct 37.0 (34.0-46.0) % MCV 91.6 (80.0-100.0) fL MCH 29.0 (25.0-35.0) pg MCHC 31.7 (31.0-37.0) g/dL RDW 15.9 H (11.5-15.5) % Plt Count 257 (150-450) k/uL MPV 7.7 Neutrophils % 68 % Lymphocytes % 16 % Monocytes % 8 % Eosinophils % 4 % Basophils % 1 % Neutrophils # 4.5 (1.3-7.7) k/uL Lymphocytes # 1.0 (1.0-4.8) k/uL Monocytes # 0.5 (0-1.0) k/uL Eosinophils # 0.3 (0-0.7) k/uL Basophils # 0.0 (0-0.2) k/uL Hypochromasia Slight Sodium 139 (137-145) mmol/L Potassium 4.9 (3.5-5.1) mmol/L Chloride 107 (98-107) mmol/L Carbon Dioxide 25 (22-30) mmol/L Anion Gap 7 mmol/L BUN 30 H (7-17) mg/dL Creatinine 1.18 H (0.52-1.04) mg/dL Est GFR (CKD-EPI)AfAm 53 (>60 ml/min/1.73 sqM) Est GFR (CKD-EPI)NonAf 46 (>60 ml/min/1.73 sqM) Glucose 93 (74-99) mg/dL Calcium 9.3 (8.4-10.2) mg/dL Total Bilirubin 0.4 (0.2-1.3) mg/dL AST 30 (14-36) U/L ALT 19 (4-34) U/L Alkaline Phosphatase 119 (38-126) U/L Troponin I 0.017 (0.000-0.034) ng/mL NT-Pro-B Natriuret Pep 980 pg/mL Total Protein 6.9 (6.3-8.2) g/dL Albumin 3.9 (3.5-5.0) g/dL Disposition Clinical Impression: Lower extremity edema Disposition: HOME SELF-CARE Condition: Good Instructions (If sedation given, give patient instructions): Leg Edema (ED) Additional Instructions: Follow-up with PCP. Report back to ER with any new or worsening symptoms. Is patient prescribed a controlled substance at d/c from ED?: No Referrals: Davis Ty DO [Primary Care Provider] - 1-2 days Time of Disposition: 00:06
[2023-03-11 00:24] VITALS: BP 136/80; PULSE 74; TEMP 97.6
== END 2023-03-11 00:38 | disposition home or self-care (01) ==
LOC: EC 21:28
DX: R60.0 Localized edema (principal); I48.91 Unspecified atrial fibrillation; J44.9 Chronic obstructive pulmonary disease, unspecified; I63.9 Cerebral infarction, unspecified; I10 Essential (primary) hypertension; F41.9 Anxiety disorder, unspecified; F32.A Depression, unspecified; F17.290 Nicotine dependence, other tobacco product, uncomplicated; Z79.899 Other long term (current) drug therapy; Z79.01 Long term (current) use of anticoagulants; Z88.0 Allergy status to penicillin; Z88.2 Allergy status to sulfonamides; Z88.6 Allergy status to analgesic agent; Z88.8 Allergy status to other drugs, medicaments and biological substances
CPT/HCPCS: 36415; 71046; 80053; 83880; 84484; 85025; 93005; 93970; 99284

== ENCOUNTER → 2023-08-22 | Outpatient (CLI) | payer MEDICARE ==
--- NOTE | 2023-08-22 16:58 | BD ---
EXAMINATION TYPE: Axial Bone Density DATE OF EXAM: 08/22/2023 CLINICAL HISTORY: 73 years old Female. ICD-10 CODE: S52.592A OTH FRACTURES OF LOWER END OF LEFT RADI US Height: 63.5 Weight: 168.2 FRAX RISK QUESTIONS: Alcohol (3 or more units per day): no Family History (Parent hip fracture): no Glucocorticoids (More than 3mos): no (Ex: prednisone, prednisolone, methylprednisolone, dexamethasone, and hydrocortisone). History of Fracture in Adulthood: yes Secondary Osteoporosis: 1. Type 1 Diabetes: no 2. Hyperthyroidism: no 3. Menopause before 45: no 4. Malnutrition: no 5. Chronic liver disease: no Rheumatoid Arthritis: no Current Tobacco Use: no RISK FACTORS HISTORY OF: History of Wrist Fracture: bilateral wrist Surgery to Spine/Hip(right/left)/Wrist (right/left): no EXAM MEASUREMENTS: Bone mineral densitometry was performed using the BRAINDIGIT System. Bone mineral density as measured about the Lumbar spine is: ----- L1-L4(G/cm2): 1.087 T Score Values are as follows: ----- L1: -1.3 ----- L2: -0.5 ----- L3: -0.8 ----- L4: -0.7 ----- L1-L4: -0.8 Z Score Values are as follows: ----- L1: 0.1 ----- L2: 0.9 ----- L3: 0.6 ----- L4: 0.7 ----- L1-L4: 0.6 Bone mineral density : baseline Bone mineral density about the R hip (g/cm2): 0.650 Bone mineral density about the L hip (g/cm2): 0.793 T Score values are as follows: -----R Neck: -2.5 -----L Neck: -2.1 -----R Total: -2.8 -----L Total: -1.7 Z Score values are as follows: -----R Neck: -0.8 -----L Neck: -0.4 -----R Total: -1.4 -----L Total: -0.2 Bone mineral density : baseline FRAX%s: The graph provided illustrates a 42.7 % chance for a major osteoporotic fx and a 24.8% chance for the hips probability for fx in 10 years time. IMPRESSION: Osteoporosis (T Score less than -2.5). There is increased fracture risk and therapy is usually indicated based on age. Re-Screen 1-2 years. NOTE: T-SCORE=SD OF THE YOUNG ADULT MEAN.
== END | disposition home or self-care (01) ==
LOC: RADBDWWP 12:59
PROVIDERS: ATTEND Family Medicine
DX: M81.0 Age-related osteoporosis without current pathological fracture (principal); M85.89 Other specified disorders of bone density and structure, multiple sites; S52.592A Other fractures of lower end of left radius, initial encounter for closed fracture
CPT/HCPCS: 77080

== ENCOUNTER 2024-03-25 15:47 | Emergency (ER) | payer MEDICARE ==
[2024-03-25 16:04] VITALS: RESP 18; TEMP 99
--- NOTE | 2024-03-25 16:08 | ED ---
General Adult HPI - General Chief complaint: Fall Stated complaint: Fall on thinners-Head injury Time Seen by Provider: 03/25/24 15:53 Source: patient, EMS, RN notes reviewed Mode of arrival: EMS Limitations: no limitations - History of Present Illness Initial comments: Patient is a 73-year-old female present to the emergency department following a fall. Patient was walking up steps when she fell and struck her head. Patient does not believe she lost consciousness. No significant headache. Patient does have some discomfort of her right wrist. No neck or back pain. No chest pain or dyspnea. No abdominal pain. Patient is on Eliquis secondary to history of atrial fibrillation. - Related Data Home Medications Medication Instructions Recorded Confirmed PARoxetine HCL 40 mg PO DAILY 03/04/21 01/31/23 Apixaban [Eliquis] 5 mg PO BID 09/27/21 01/31/23 Oxybutynin Chloride [oxyBUTYnin 10 mg PO DAILY 10/20/21 01/31/23 chloride ER] Albuterol Inhaler [Ventolin Hfa 2 puff PO RT-Q6H PRN 02/27/22 02/07/23 Inhaler] Pilocarpine [Salagen] 5 mg PO TID PRN 06/01/22 02/07/23 buPROPion HCL [buPROPion HCL XL] 300 mg PO DAILY 11/08/22 01/31/23 Acetaminophen Tab [Tylenol] 325 mg PO Q4H PRN 01/05/23 02/07/23 ARIPiprazole [Abilify] 5 mg PO HS 01/31/23 02/07/23 Previous Rx's Medication Instructions Recorded Atorvastatin [Lipitor] 40 mg PO HS #30 tablet 03/06/21 ALPRAZolam [Xanax] 0.5 mg PO BID PRN #6 tab 10/22/21 amLODIPine 10 mg PO DAILY #90 tab 02/10/23 Allergies Allergy/AdvReac Type Severity Reaction Status Date / Time benazepril Allergy Anaphylaxis Verified 03/10/23 21:44 Penicillins Allergy Face Verified 03/10/23 21:44 swelling sertraline [From Zoloft] Allergy Face Verified 03/10/23 21:44 swelling Sulfa (Sulfonamide Allergy Face Verified 03/10/23 21:44 Antibiotics) swelling Review of Systems ROS Statement: Those systems with pertinent positive or pertinent negative responses have been documented in the HPI. ROS Other: All systems not noted in ROS Statement are negative. Constitutional: Denies: fever Eyes: Denies: eye pain ENT: Denies: ear pain Respiratory: Denies: cough, dyspnea Cardiovascular: Denies: chest pain Gastrointestinal: Denies: abdominal pain Neurological: Denies: weakness Past Medical History Past Medical History: Atrial Fibrillation, Cancer, COPD, CVA/TIA, Hyperlipidemia, Hypertension Additional Past Medical History / Comment(s): Colon cancer 2016/right colectomy- had surg. 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 Seizure-pt. unaware of this, sciatica, had cardiac workup after requiring CPR prior to surg. for fx. ankle, chronic atrial flutter, hx. of low potassium in past, hx. collagenous colitis, see Dr Michaud's H&P. urine flow issues. bruises easily History of Any Multi-Drug Resistant Organisms: None Reported Past Surgical History: Bowel Resection, Cholecystectomy, Heart Catheterization, Hernia Repair, Orthopedic Surgery, Tonsillectomy Additional Past Surgical History / Comment(s): right wrist surgery post fracture, robotic colectomy, ORIF right ankle Past Anesthesia/Blood Transfusion Reactions: Previous Problems w/ Anesthesia Additional Past Anesthesia/Blood Transfusion Reaction / Comment(s): had some sort of arrythmia requiring CPR prior to an ankle surg. in 2021 Past Psychological History: Anxiety, Depression Smoking Status: Former smoker, Vaper Past Alcohol Use History: Rare Past Drug Use History: None Reported - Past Family History Mother Family Medical History: Cancer Additional Family Medical History / Comment(s): Bladder cancer. Sister(s) Family Medical History: Cancer Additional Family Medical History / Comment(s): Colon cancer. General Exam Limitations: no limitations General appearance: alert, in no apparent distress Head exam: Present: other (Soft tissue swelling right forehead) Eye exam: Present: normal appearance, PERRL, EOMI ENT exam: Present: normal oropharynx Neck exam: Present: normal inspection. Absent: tenderness Respiratory exam: Present: normal lung sounds bilaterally. Absent: chest wall tenderness Cardiovascular Exam: Present: regular rate, normal rhythm GI/Abdominal exam: Present: soft. Absent: tenderness Extremities exam: Present: tenderness (Right wrist with swelling near the distal radius) Back exam: Present: normal inspection Neurological exam: Present: alert, oriented X3, CN II-XII intact. Absent: motor sensory deficit Expanded Neurological exam: Present: protecting the airway Patient oriented to: Present: person, place, time Speech: Present: fluid speech Motor strength exam: RUE: 5, LUE: 5, RLE: 5, LLE: 5 Eye Response: (4) open spontaneously Motor Response: (6) obeys commands Verbal Response: (5) oriented Psychiatric exam: Present: normal affect, normal mood Skin exam: Present: abrasion, other (Skin tear left forearm) Course Vital Signs 03/25/24 15:49 Temperature 99 F Pulse Rate 64 Respiratory 18 Rate Blood Pressure 169/84 O2 Sat by Pulse 95 Oximetry Procedures - Laceration Laceration #1 Consent Obtained: verbal consent Indication: other (Skin flap/avulsion) Site: upper extremity (Left) Size (cm): 2 Description: linear, avulsion (Devitalized skin removed with scissors and tissue adhesive placed over the area.) Depth: simple, single layer Pre-repair: irrigated extensively Type of Sutures: other Patient Tolerated Procedure: well, no complications - Orthopedic Splinting/Casting Injury #1 Side: right Upper Extremity Injury Location: short arm, wrist Upper Extremity Immobilizer: volar splint Medical Decision Making - Medical Decision Making CT made aware of fall on thinners at 1606. Was pt. sent in by a medical professional or institution (GRAYSON Mccracken, MANAGER EQUITY, urgent care, hospital, or jail...) When possible be specific @ -No Did you speak to anyone other than the patient for history (EMS, parent, family, police, friend...)? What history was obtained from this source @ -Family does arrive and confirms history Did you review nursing and triage notes (agree or disagree)? Why? @ -I reviewed and agree with nursing and triage notes Were old charts reviewed (outside hosp., previous admission, EMS record, old EKG, old radiological studies, urgent care reports/EKG's, jail records)? Report findings @ -No old charts were reviewed Differential Diagnosis (chest pain, altered mental status, abdominal pain women, abdominal pain men, vaginal bleeding, weakness, fever, dyspnea, syncope, headache, dizziness, GI bleed, back pain, seizure, CVA, palpatations, mental health, musculoskeletal)? @ -Differential Musculoskeletal Muscular strain, contusion, ligament sprain, fracture, arthritis, septic arthritis, bursitis, cellulitis, muscle spasm, nerve compression, DVT, arterial occlusion, herpes zoster, electrolyte abnormality, tumor.... This is not meant to be in all inclusive list EKG interpreted by me (3pts min.). @ -As above X-rays interpreted by me (1pt min.). @ -X-ray right wrist shows distal radius fracture CT interpreted by me (1pt min.). @ -CT brain without acute abnormality intracranially. Scalp hematoma. U/S interpreted by me (1pt. min.). @ -None done What testing was considered but not performed or refused? (CT, X-rays, U/S, labs)? Why? @ -None What meds were considered but not given or refused? Why? @ -None Did you discuss the management of the patient with other professionals (professionals i.e. , PA, MANAGER EQUITY, lab, RT, psych nurse, psychosocial rehabilitation counselor, brake holder, teacher, airport operations officer, patient case coordinator)? Give summary @ -No Was smoking cessation discussed for >3mins.? @ -No Was critical care preformed (if so, how long)? @ -No Were there social determinants of health that impacted care today? How? (Homelessness, low income, unemployed, alcoholism, drug addiction, transportation, low edu. Level, literacy, decrease access to med. care, penitentiary, rehab)? @ -No Was there de-escalation of care discussed even if they declined (Discuss DNR or withdrawal of care, Hospice)? DNR status @ -No What co-morbidities impacted this encounter? (DM, HTN, Smoking, COPD, CAD, Cancer, CVA, ARF, Chemo, Hep., AIDS, mental health diagnosis, sleep apnea, morbid obesity)? @ -None Was patient admitted / discharged? Hospital course, mention meds given and route, prescriptions, significant lab abnormalities, going to OR and other pertinent info. @ -Patient presents with fall and head injury on thinners. CT scan done. X- ray concerning for distal radius fracture. Skin flaps with devitalized tissue removed and Dermabond placed. Patient will be discharged with follow-up Undiagnosed new problem with uncertain prognosis? @ -No Drug Therapy requiring intensive monitoring for toxicity (Heparin, Nitro, Insulin, Cardizem)? @ -No Were any procedures done? @ -No Diagnosis/symptom? @ -Fall, head injury on thinners. Distal radius fracture Acute, or Chronic, or Acute on Chronic? @ -Acute, acute Uncomplicated (without systemic symptoms) or Complicated (systemic symptoms)? @ -Default Side effects of treatment? @ -No Exacerbation, Progression, or Severe Exacerbation? @ -No Poses a threat to life or bodily function? How? (Chest pain, [place], [place], pneumonia, PE, COPD, DKA, ARF, appy, cholecystitis, CVA, Diverticulitis, Homicidal, Suicidal, threat to staff... and all critical care pts) @ -No Disposition Clinical Impression: Fracture of right distal radius, Head injury Disposition: HOME SELF-CARE Condition: Stable Instructions (If sedation given, give patient instructions): Fall Prevention for Older Adults (ED), Wrist Fracture in Adults (ED), Head Injury (ED) Additional Instructions: Hold your blood thinner for 24 hours. Please follow-up with primary care physician in the next day or 2 for recheck. Please follow-up with orthopedics this week. Number provided. Return for confusion, vomiting, weakness, coordination problems, visual changes, worsening symptoms or any other concerns. Is patient prescribed a controlled substance at d/c from ED?: No Referrals: Davis Ty DO [Primary Care Provider] - 1-2 days Emanuel Hernandez DO [Doctor of Osteopathic Medicine] - 1-2 days Time of Disposition: 18:45
[2024-03-25] MEDS: TOPICAL SKIN ADHESIVE 1 EACH AMP TOPICAL ONE (16:42)
--- NOTE | 2024-03-25 17:33 | XR ---
EXAMINATION TYPE: XR wrist complete RT DATE OF EXAM: 03/25/2024 COMPARISON: NONE HISTORY: Pain TECHNIQUE: Four views submitted. FINDINGS: Analyzed demineralization with narrowing the first carpometacarpal and radiocarpal joint. There is a deformity of the intra-articular portion of the distal radius. Lateral view suggest offset and findin gs are suspicious for an impacted fracture of the distal radius. IMPRESSION: 1. Findings are suggestive of an impacted fracture with mild displacement of the distal radius. [facility], , 03/25/2024 5:31 PM
--- NOTE | 2024-03-25 18:30 | CT ---
EXAMINATION TYPE: CT brain wo con CT DLP: 1176.4 mGycm, Automated exposure control for dose reduction was used. DATE OF EXAM: 03/25/2024 4:28 PM COMPARISON: 02/23/2023 CLINICAL INDICATION:Female, 73 years old with history of HI on thinners, fall, on thinners TECHNIQUE: Brain: Axial CT images of the brain were obtained with coronal and sagittal reformats created and rev iewed. Contrast used: None. Oral contrast used: None. FINDINGS: Extra-axial spaces: No abnormal extra-axial fluid collections. Basilar cisterns are patent. Ventricular system: Ventricles appear dilated in proportion to the degree of cerebral atrophy. Cerebral parenchyma: No increased attenuation to suggest acute intraparenchymal hemorrhage. The gra y-white matter interface appears maintained. Moderate to severe generalized brain atrophy. Scattere d hypoattenuating areas are seen within the cerebral white matter, nonspecific but most often seen wi th chronic microvascular ischemic changes; moderate in degree. Cerebellum: No acute abnormality. Mass effect: No evidence of mass effect or midline shift. Intracranial vasculature: Atherosclerotic calcifications of the larger arteries near the skull base. Soft tissues: Moderate sized scalp hematoma is present on the right anterolaterally above the right o rbit. In conglomerate this is roughly 44 x 18 mm axially and extends 49 mm craniocaudally. Visualized orbits: Orbital contents appear grossly intact. Bilateral aphakia again noted. Calvarium/osseous structures: No evidence of calvarial fracture. Paranasal sinuses and mastoid air cells: Mild scattered paranasal sinus mucosal thickening. No abnorm al fluid accumulation. MRI is more sensitive for detecting acute processes such as infarct, and may be considered if clinica lly warranted. IMPRESSION: 1. No acute intracranial CT abnormality. 2. Right forehead scalp hematoma without evidence of calvarial fracture. [facility], , 03/25/2024 6:28 PM
--- NOTE | 2024-03-25 20:34 | CT ---
EXAMINATION TYPE: CT abdomen pelvis wo con CT DLP: 799.7 mGycm, Automated exposure control for dose reduction was used. DATE OF EXAM: 03/25/2024 8:25 PM COMPARISON: CT abdomen pelvis most recent from 06/07/2022 CLINICAL INDICATION: Female, 73 years old with history of fall; abdominal pain, fall TECHNIQUE: Axial CT abdomen pelvis wo con;Sagittal and coronal reformats were created on a separate workstation. Contrast used: mL of , (none if empty) Oral contrast used: without Oral Contrast (none if empty) FINDINGS: LOWER CHEST: Heart is enlarged for size. Cardiac conduction leads terminating in the right ventricle and atrium. Mitral valve annular calcifications. ABDOMEN LIVER: Unremarkable GALLBLADDER AND BILE DUCTS: The gallbladder surgically absent. PANCREAS: Unremarkable. SPLEEN: Unremarkable. ADRENAL GLANDS: Unremarkable. KIDNEYS AND URETERS: Nonobstructing left superior renal calculus measuring 4 mm. No right renal calcu li. PELVIS BLADDER: Unremarkable REPRODUCTIVE: Unremarkable. ABDOMEN & PELVIS STOMACH AND BOWEL: No evidence of bowel obstruction. Scattered colonic diverticula. Postsurgical caceres ges to the right abdomen large bowel with sutures present. PERITONEUM/RETROPERITONEUM: No evidence of pneumoperitoneum or free fluid. VASCULATURE: No evidence of aortic aneurysm. MUSCULOSKELETAL: No acute osseous abnormalities. Moderate disc degeneration changes are present throu ghout the thoracolumbar spine. Scoliosis changes to the spine. LYMPH NODES: No gross evidence for lymphadenopathy. SOFT TISSUE/ABDOMINAL WALL: Unremarkable IMPRESSION: 1. No acute abdominal process. 2. Left nonobstructing renal calculus. 3. Postsurgical changes to the colon. 4. Colonic diverticulosis. 5. Cardiomegaly [facility], , 03/25/2024 8:32 PM
[2024-03-25] MEDS: ACETAMINOPHEN TAB 500 MG TAB PO STA (20:54)
[2024-03-25 20:56] VITALS: BP 152/78; PULSE 68
== END 2024-03-25 21:08 | disposition home or self-care (01) ==
LOC: EC 15:47
CPT/HCPCS: 12011; 70450; 74176; 99284

== ENCOUNTER → 2024-07-27 | Outpatient (CLI) | payer MEDICARE ==
--- NOTE | 2024-07-27 10:48 | MM ---
Reason for Exam: Screening (asymptomatic). Last mammogram was performed 3 year(s) and 5 month(s) ago. Patient History: Menarche at age 11. First Full-Term at age 21. Postmenopausal. Colorectal cancer, age 63. Maternal grandmother had breast cancer. Niece had breast cancer under age 50. Risk Values: Gabrielle 5 year model risk: 1.6%. NCI Lifetime model risk: 3.2%. Prior Study Comparison: 10/11/2018 Bilateral Screening Mammogram, [facility]. 01/07/2020 Bilateral Screening Mammogram, [facility]. 02/23/2021 Bilateral Screening Mammogram, [facility]. Tissue Density: The breasts are heterogeneously dense, which may obscure small masses. Findings: Analyzed By CAD. Right breast: There is no suspicious group of microcalcifications or new suspicious mass. Benign-appearing calcifications right breast. Left breast: There is no suspicious group of microcalcifications or new suspicious mass. Benign-appearing calcifications left breast. Overall Assessment: Benign, BI-RAD 2 Management: Screening Mammogram of both breasts in [address] [facility] will attempt to contact patient to return for supplemental views and ultrasound if indicated. Patient should continue monthly self-breast exams. A clinical breast exam by your physician is recommended on an annual basis. This exam should not preclude additional follow-up of suspicious palpable abnormalities. Note on Gabrielle scores and lifetime risk: 1. A Gabrielle score greater than 3% is considered moderate risk. If this is the case, consider specialist referral to assess eligibility for a risk reducing agent. 2. If overall lifetime risk for the development of breast cancer is 20% or higher, the patient may qualify for future screening with alternating mammogram and breast MRI. [facility], , 07/27/2024 10:44 AM. Electronically signed and approved by: William Mckay DO
== END | disposition home or self-care (01) ==
LOC: RADMAMWWP 09:59
PROVIDERS: ATTEND Family Medicine
DX: Z12.31 Encounter for screening mammogram for malignant neoplasm of breast (principal); R92.333 Mammographic heterogeneous density, bilateral breasts; Z78.0 Asymptomatic menopausal state; Z80.3 Family history of malignant neoplasm of breast; R92.1 Mammographic calcification found on diagnostic imaging of breast
CPT/HCPCS: 77063; 77067